=== PATIENT | male | born 1940 | race Caucasian/White ===

== ENCOUNTER 2016-10-14 16:05 | Emergency (ER) | payer MEDICARE, MEDICAID ==
[~2016-10-14] VITALS: Ht 172.7 cm; Wt 81.6 kg
[~2016-10-14 16:05] MED LIST: AMBIEN10 M1 GT; ATARAX25 MG ORAL; BENAZEPRIL HCL10 MG PO; CATAPRES0.1 MG ORAL; CIPRO500 MG PO; COREG3.125 MG PO; DEPAKENE250 MG ORAL; DEPAKOTE500 MG PO; FUROSEMIDE40 MG ORAL; GLUCOPHAGE500 MG PO; LANOXIN125 MCG PO; LANTUS SOL100 UNIT/1 SUBQ; LANTUS5 UNITS SUBQ; LASIX40 MG PO; METFORMIN HCL500 M1 GT; MILK OF MA400 MG/51 ORAL; MULTIVITAMINS1 EAC8 GT; MYLANTA30 M1 GT; NORVASC5 MG GT; NOVOLIN R100 UNIT/1 SUBQ; NOVOLOG100 UNIT/3 SUBQ; OMEPRAZOLE20 M2 GT; POLYVINYL ALCOH15 ML BOTH EYES; POTASSIUM30 MEQ/22. GT; RISPERDAL2 MG GT; RISPERDAL2 MG PO; SIMVASTATIN20 MG PO; TYLENOL650 MG/20. ORAL
[2016-10-14] MEDS ORDERED: AMIODARONE HCL400 M1 GT (16:29)
[2016-10-14] MEDS ORDERED: CARDURA1 MG GT (16:30)
[2016-10-14] MEDS ORDERED: ELIQUIS2.5 MG GT (16:31)
[2016-10-14] MEDS ORDERED: GLUCOPHAGE500 MG GT (16:32)
[2016-10-14] MEDS ORDERED: METOPROLOL TART25 MG GT (16:33)
[2016-10-14] MEDS ORDERED: NEXIUM40 M2 GT (16:34)
[2016-10-14] MEDS ORDERED: PROSCAR5 MG GT (16:35)
[2016-10-14] MEDS ORDERED: BUPROPION XL300 MG GT (16:36)
[2016-10-14 19:59] LABS: EOSINOPHILS % (AUTO) 3.3 % (0.0-3.0); LYMPHOCYTES % (AUTO) 14.9 % (20.0-45.0); MEAN CORPUSCULAR HEMOGLOBIN 32.7 PG (27.0-31.0); MEAN CORPUSCULAR HGB CONC 31.8 G/DL (32.0-36.0); MEAN CORPUSCULAR VOLUME 103 FL (80-99); MEAN PLATELET VOLUME 8.5 FL (6.5-10.1); MONOCYTES % (AUTO) 8.8 % (1.0-10.0); NEUTROPHILS % (AUTO) 72.1 % (45.0-75.0); PLATELET COUNT 192 K/UL (150-450); RED BLOOD COUNT 4.12 M/UL (4.70-6.10); RED CELL DISTRIBUTION WIDTH 13.7 % (11.6-14.8); WHITE BLOOD COUNT 5.8 K/UL (4.8-10.8)
[2016-10-14 20:18] LABS: ALANINE AMINOTRANSFERASE 8 U/L (3-41); ANION GAP 8 (5-15); ASPARTATE AMINO TRANSFERASE 16 U/L (5-40); CALCIUM 9.5 mg/dL (8.6-10.2); CARBON DIOXIDE 31 mEQ/L (20-30); CHLORIDE 98 mEQ/L (98-107); CREATININE 0.7 mg/dL (0.7-1.2); HEMOLYSIS 1; POTASSIUM 4.4 mEQ/L (3.4-4.9); SODIUM 137 mEQ/L (135-145); TOTAL PROTEIN 6.9 g/dL (6.6-8.7)
[2016-10-14 21:12] VITALS: BP 168/96
[2016-10-14 22:22] VITALS: BP 146/69
--- NOTE | 2016-10-15 09:04 | Diagnostic Imaging Report ---
Indication: Status post gastrostomy replacement Technique: Supine view of the abdomen after injection of water-soluble contrast into gastrostomy Comparison: 07/20/2016 Findings: Contrast opacifies the stomach. No contrast extravasation is demonstrated. The bowel gas pattern is unremarkable. Pacemaker wires are again seen in the heart. There is no significant change Impression: Satisfactory position of gastrostomy tube
--- NOTE | 2016-10-17 06:41 | Emergency Room Report ---
History of Present Illness General Chief Complaint: Malfunctioning Gastric Tube Source: Patient, Medical Record Present Illness HPI Patient is a 76-year-old male who presented after the gastrostomy tube clogged. The patient had recently been fed through G-tube prior to the G-tube malfunctioning. The patient reports having no fever. Patient G-tube dependent. He denies current complaints.There is no recent leakage from the G- tube. The patient had not been vomiting. Allergies: Coded Allergies: AUBREY INHIBITORS (Verified Allergy, Unknown, ANGIOEDEMA, 09/17/12) Patient History Past Medical History: see triage record Reviewed Nursing Documentation: PMH: Agreed, PSxH: Agreed Nursing Documentation-PMH Past Medical History: No History, Except For Hx Cardiac Problems: Yes - HYPERLIPIDEMIA Hx Hypertension: Yes Hx Asthma: Yes Hx COPD: Yes Hx Diabetes: Yes Hx Cancer: Yes - LYMPH Hx Gastrointestinal Problems: Yes - PT HAS GT-INTACT Hx Neurological Problems: Yes Hx Cerebrovascular Accident: Yes Hx Aphasia: Yes Hx Weakness: Yes - LE Review of Systems All Other Systems: limited - by poor historian Physical Exam Vital Signs Date Time Temp Pulse Resp B/P Pulse Ox O2 Delivery O2 Flow Rate FiO2 10/14/16 16:02 98.4 60 14 152/88 98 Room Air Sp02 EP Interpretation: reviewed, normal General Appearance: normal inspection, well appearing, no apparent distress, alert, GCS 15 Head: atraumatic ENT: normal ENT inspection, hearing grossly normal, normal voice, other - abnormal facies Neck: normal inspection, full range of motion, supple, no bony tend Respiratory: normal inspection, lungs clear, normal breath sounds, no respiratory distress, no retraction, no wheezing Cardiovascular #1: regular rate, rhythm, no edema Gastrointestinal: normal inspection, normal bowel sounds, non tender, soft, no guarding, no hernia, other - stoma clean dry and intact without erythema Genitourinary: no CVA tenderness Musculoskeletal: normal inspection, back normal, normal range of motion Neurologic: alert, responsive, speech normal, other - slight speech impediment , oriented Psychiatric: normal inspection, judgement/insight normal, mood/affect normal Skin: normal inspection, normal color, no rash Medical Decision Making Diagnostic Impression: Primary Impression: Malfunction of gastrostomy tube ER Course The patient presented for G-tube malfunction. Gastrostomy tube was removed with light traction. Gastrostomy tube was replaced with sterile technique after prep with Betadine. 18 [place] gastrostomy tube was introduced into the stoma. Post procedure x-ray showed adequate gastrostomy tube placement. Patient tolerated well without complications. The patient was discharged back to longterm. Patient was return for persistent vomiting, other concerns. Labs Test 10/14/16 19:45 White Blood Count 5.8 K/UL (4.8-10.8) Red Blood Count 4.12 M/UL (4.70-6.10) Hemoglobin 13.5 G/DL (14.2-18.0) Hematocrit 42.4 % (42.0-52.0) Mean Corpuscular Volume 103 FL (80-99) Mean Corpuscular Hemoglobin 32.7 PG (27.0-31.0) Mean Corpuscular Hemoglobin Concent 31.8 G/DL (32.0-36.0) Red Cell Distribution Width 13.7 % (11.6-14.8) Platelet Count 192 K/UL (150-450) Mean Platelet Volume 8.5 FL (6.5-10.1) Neutrophils (%) (Auto) 72.1 % (45.0-75.0) Lymphocytes (%) (Auto) 14.9 % (20.0-45.0) Monocytes (%) (Auto) 8.8 % (1.0-10.0) Eosinophils (%) (Auto) 3.3 % (0.0-3.0) Basophils (%) (Auto) 1.0 % (0.0-2.0) Sodium Level 137 mEQ/L (135-145) Potassium Level 4.4 mEQ/L (3.4-4.9) Chloride Level 98 mEQ/L (98-107) Carbon Dioxide Level 31 mEQ/L (20-30) Anion Gap 8 (5-15) Blood Urea Nitrogen 20 mg/dL (7-23) Creatinine 0.7 mg/dL (0.7-1.2) Estimat Glomerular Filtration Rate mL/min (>60) Glucose Level 70 mg/dL (74-106) Calcium Level 9.5 mg/dL (8.6-10.2) Total Bilirubin 0.5 mg/dL (0.0-1.2) Aspartate Amino Transf (AST/SGOT) 16 U/L (5-40) Alanine Aminotransferase (ALT/SGPT) 8 U/L (3-41) Alkaline Phosphatase 73 U/L (40-129) Total Protein 6.9 g/dL (6.6-8.7) Albumin 3.5 g/dL (3.5-5.2) Globulin 3.4 g/dL Albumin/Globulin Ratio 1.0 (1.0-2.7) Last Vital Signs Date Time Temp Pulse Resp B/P Pulse Ox O2 Delivery O2 Flow Rate FiO2 10/14/16 22:22 87 14 146/69 97 Room Air 10/14/16 21:12 98.3 Status: improved Disposition: XFER SNF Condition: Stable Referrals: Laina Pereira MD (PCP) Patient Instructions: Gastrostomy Tube Home Guide, Adult Mahin Ulrich Oct 17, 2016 06:41
[2016-11-10] MEDS ORDERED: ELIQUIS2.5 MG GT (14:21)
[2016-11-10] MEDS ORDERED: FUROSEMIDE20 M1 GT (14:21)
[2016-11-10] MEDS ORDERED: AMLODIPINE BESYL5 MG GT (14:21)
[2016-11-10] MEDS ORDERED: CARDURA4 MG GT (14:21)
[2016-11-10] MEDS ORDERED: CRANBERRY200 M1 GT (14:21)
[2016-11-10] MEDS ORDERED: PACERONE100 MG GT (14:21)
[2016-11-10] MEDS ORDERED: CATAPRES0.1 MG GT (14:21)
[2016-11-10] MEDS ORDERED: GLUCOPHAGE500 MG GT (14:23)
[2016-11-10] MEDS ORDERED: METOPROLOL TART25 MG GT (14:23)
[2016-11-10] MEDS ORDERED: MILK OF MA400 MG/51 ORAL (14:23)
[2016-11-10] MEDS ORDERED: MULTIVITAMINS1 EAC8 GT (14:29)
[2016-11-10] MEDS ORDERED: PROSCAR5 MG GT (14:29)
[2016-11-10] MEDS ORDERED: POTASSIUM CHLO10 ME2 GT (14:29)
[2016-11-10] MEDS ORDERED: VALPROIC A250 MG/51 GT (14:29)
[2016-11-10] MEDS ORDERED: tylenol GT (14:29)
[2016-11-10] MEDS ORDERED: WELLBUTRIN XL150 MG GT (14:29)
[2016-11-10] MEDS ORDERED: NEXIUM40 MG ORAL (14:29)
== END 2016-10-14 22:25 ==
LOC: EDBD 16:05 → EMR 17:22
DX: K94.23 Gastrostomy malfunction (principal); I10 Essential (primary) hypertension; E78.5 Hyperlipidemia, unspecified; J45.909 Unspecified asthma, uncomplicated; Z86.73 Personal history of transient ischemic attack (TIA), and cerebral infarction without residual deficits; R47.01 Aphasia; J44.9 Chronic obstructive pulmonary disease, unspecified; E11.9 Type 2 diabetes mellitus without complications; Z87.19 Personal history of other diseases of the digestive system; R53.1 Weakness; Z88.8 Allergy status to other drugs, medicaments and biological substances; Z85.9 Personal history of malignant neoplasm, unspecified
CPT/HCPCS: 36415; 43760; 74000; 80053; 85025; 86710

== ENCOUNTER 2016-11-10 14:32 | Inpatient (IN) | payer MEDICARE, MEDICAID ==
[~2016-11-10] VITALS: Ht 175.3 cm; Wt 77.1 kg
--- NOTE | 2016-11-10 14:25 | Emergency Room Report ---
History of Present Illness General Chief Complaint: General Complaint Source: Medical Record, PMD Present Illness HPI 75 YOM sent from convalescent home by Dr Granados for evaluation for ?left sided facial swelling/cellulitis and possible throat cancer vs thyroid cancer. Patient speaking with scratchy voice that is barely discernible to me and RN. All info below from review of paperwork patient sent with. Allergies: Coded Allergies: AUBREY INHIBITORS (Verified Allergy, Unknown, ANGIOEDEMA, 09/17/12) Patient History Past Medical History: DM, HTN, CHF, AFib, dementia, psych hx Past Surgical History: pacemaker, other - s/p trach distantly Pertinent Family History: unable to obtain Social History: Denies: alcohol use, drug use, smoking Immunizations: UTD Reviewed Nursing Documentation: PMH: Agreed, PSxH: Agreed Nursing Documentation-PMH Hx Cardiac Problems: Yes Hx Hypertension: Yes Hx Pacemaker: Yes Hx Asthma: Yes Hx COPD: No Hx Diabetes: No Hx Cancer: No Hx Gastrointestinal Problems: Yes - ge-reflux, gt Hx Dialysis: No History Of Psychiatric Problem: No Hx Neurological Problems: No Hx Cerebrovascular Accident: No Hx Seizures: No Review of Systems All Other Systems: limited - unable to obtain, chronic illness Physical Exam Vital Signs Date Time Temp Pulse Resp B/P Pulse Ox O2 Delivery O2 Flow Rate FiO2 11/10/16 13:52 98.4 64 18 96/63 94 Room Air Sp02 EP Interpretation: reviewed, normal General Appearance: normal inspection, well appearing, no apparent distress, alert, GCS 15, non-toxic Head: normocephalic, atraumatic Eyes: bilateral eye EOMI, bilateral eye PERRL ENT: normal ENT inspection, hearing grossly normal, normal pharynx, no angioedema, normal voice Neck: normal inspection, full range of motion, supple, no bony tend, other - previous trach scar Respiratory: normal inspection, lungs clear, normal breath sounds, no rhonchi, no respiratory distress, no retraction, no accessory muscle use, no wheezing Cardiovascular #1: regular rate, rhythm, no edema Gastrointestinal: normal inspection, normal bowel sounds, non tender, soft, no guarding, no hernia Genitourinary: no CVA tenderness Musculoskeletal: normal inspection, back normal, normal range of motion, April' s Sign negative Neurologic: normal inspection, alert, responsive, kilnman III-XII nml as tested, motor strength/tone normal, speech normal Psychiatric: normal inspection, judgement/insight normal, mood/affect normal Skin: other - Left sided facial erythema, no fluctuance Medical Decision Making Medicare Attestation I Ahmet Christie MD hereby attest that the medical record entry for date of service, 09/15/16 accurately reflects signatures/notations that I made in my capacity as MD when I treated/diagnosed the above listed Medicare beneficiary. I attest that this information is true, accurate and complete to the best of my knowledge. I understand that any falsification, omission, or concealment of material fact may subject me to administrative, civil, or criminal liability. This patient warrants hospital admission for extreme of age and has a condition that cannot be treated as outpatient. Diagnostic Impression: Primary Impression: Cellulitis and abscess of face Additional Impression: Swelling of left side of face ER Course Labs: H&H stable. No leuks. No metabolic abnormalities. CXR with possible left sided infiltrate A: Patient tx empirically with vanc/zosyn for left sided facial cellulitis and possible left sided PNA CT Head and CT neck are pending at time of endorsement to Dr Granados at 355pm for tele admission Patient remains stable in ED. VSS. No airway compromise. EKG Diagnostic Results Rate: normal, other - PVCs Rhythm: NSR ST Segments: no acute changes ASA given to the pt in ED: No Rhythm Strip Diag. Results EP Interpretation: yes Rate: 68 Rhythm: NSR, no ectopy, other - Multiple PVCs Chest X-Ray Diagnostic Results EP Interpretation: Yes Findings: no consolidation, no effusion, no pneumothorax, no acute cardiopulmonary disease, other - Possible left sided infiltate vs nodules new compared to previous Number of Views: 1 Last Vital Signs Date Time Temp Pulse Resp B/P Pulse Ox O2 Delivery O2 Flow Rate FiO2 11/10/16 13:52 98.4 64 18 96/63 94 Room Air Status: improved Disposition: ADMITTED INPATIENT Condition: Serious AHMET CHRISTIE M.D. Nov 10, 2016 14:25
[~2016-11-10 14:32] MED LIST changes: +AMIODARONE HCL400 M1 GT; +AMLODIPINE BESYL5 MG GT; +BUPROPION XL300 MG GT; +CARDURA1 MG GT; +CARDURA4 MG GT; +CATAPRES0.1 MG GT; +CRANBERRY200 M1 GT; +ELIQUIS2.5 MG GT; +FUROSEMIDE20 M1 GT; +GLUCOPHAGE500 MG GT; +METOPROLOL TART25 MG GT; +NEXIUM40 M2 GT; +NEXIUM40 MG ORAL; +PACERONE100 MG GT; +POTASSIUM CHLO10 ME2 GT; +PROSCAR5 MG GT; +VALPROIC A250 MG/51 GT; +Vancomycin 1.5gm/D5W 300ml 325 ML IVPB ONE; +WELLBUTRIN XL150 MG GT; +tylenol GT
[2016-11-10 14:35] VITALS: BP 104/58
[2016-11-10] MEDS ORDERED: Zosyn 4.5gm inj ONE (14:49)
[2016-11-10] MEDS ORDERED: Tubing IV Cassette IV ONE (14:50)
[2016-11-10] MEDS ORDERED: NS 110 ML ONE (14:50)
[2016-11-10 15:05] LABS: BASOPHILS % (AUTO) 0.6 % (0.0-2.0); EOSINOPHILS % (AUTO) 0.9 % (0.0-3.0); LYMPHOCYTES % (AUTO) 8.1 % (20.0-45.0); MEAN CORPUSCULAR HEMOGLOBIN 32.8 PG (27.0-31.0); MEAN CORPUSCULAR HGB CONC 32.3 G/DL (32.0-36.0); MEAN CORPUSCULAR VOLUME 102 FL (80-99); MEAN PLATELET VOLUME 9.2 FL (6.5-10.1); MONOCYTES % (AUTO) 10.1 % (1.0-10.0); NEUTROPHILS % (AUTO) 80.5 % (45.0-75.0); PLATELET COUNT 198 K/UL (150-450); RED BLOOD COUNT 3.93 M/UL (4.70-6.10); RED CELL DISTRIBUTION WIDTH 13.6 % (11.6-14.8); WHITE BLOOD COUNT 7.6 K/UL (4.8-10.8)
[2016-11-10] MEDS ORDERED: Piperacillin/Tazobactam 4.5 GM in D5W 110 ML IV SCH (15:30)
[2016-11-10 15:36] LABS: ALANINE AMINOTRANSFERASE 10 U/L (3-41); ALBUMIN/GLOBULIN RATIO 0.8 (1.0-2.7); ANION GAP 12 (5-15); ASPARTATE AMINO TRANSFERASE 16 U/L (5-40); CALCIUM 9.7 mg/dL (8.6-10.2); CARBON DIOXIDE 31 mEQ/L (20-30); CHLORIDE 95 mEQ/L (98-107); CREATININE 0.7 mg/dL (0.7-1.2); HEMOLYSIS 6; POTASSIUM 4.6 mEQ/L (3.4-4.9); SODIUM 138 mEQ/L (135-145); TOTAL PROTEIN 7.6 g/dL (6.6-8.7)
[2016-11-10 15:50] LABS: APPEARANCE,URINE CLEAR; KETONES,URINE NEGATIVE (NEGATIVE); LEUKOCYTE ESTERASE ,URINE NEGATIVE (NEGATIVE); NITRITE,URINE NEGATIVE (NEGATIVE); PH,URINE 7 (4.5-8.0); PROTEIN,URINE NEGATIVE (NEGATIVE); UROBILINOGEN,URINE 1 MG/DL (0.0-1.0)
--- NOTE | 2016-11-10 17:04 | Infectious Diseases Prog Note ---
Assessment/Plan Problems: (1) Cellulitis and abscess of face Assessment & Plan: will start zosyn and vancomycin empirically for now pending CT scan results, will send blood culture (2) Cellulitis Assessment & Plan: of the neck , CT scan is pending to rule out deep abscess, will start zosyn and vancomycin , await culture results (3) Sepsis Assessment & Plan: due to the above, send blood culture, start wide spectrum antibiotics (4) Diabetes Assessment & Plan: recommend tight glycemic control to keep blood glucose between 80-120 (5) HTN (hypertension) Assessment & Plan: continue meds to keep SBP <140 Subjective Allergies: Coded Allergies: AUBREY INHIBITORS (Verified Allergy, Unknown, ANGIOEDEMA, 09/17/12) Objective Vital Signs Last 24 Hour Vital Signs Date Time Temp Pulse Resp B/P Pulse Ox O2 Delivery O2 Flow Rate FiO2 11/10/16 14:35 98.8 66 16 104/58 95 Room Air 11/10/16 13:52 98.4 64 18 96/63 94 Room Air Height (Feet): 5 Height (Inches): 9.00 Weight (Pounds): 170 Laboratory Tests Test 11/10/16 14:15 11/10/16 15:30 White Blood Count 7.6 K/UL (4.8-10.8) Red Blood Count 3.93 M/UL (4.70-6.10) L Hemoglobin 12.9 G/DL (14.2-18.0) L Hematocrit 39.9 % (42.0-52.0) L Mean Corpuscular Volume 102 FL (80-99) H Mean Corpuscular Hemoglobin 32.8 PG (27.0-31.0) H Mean Corpuscular Hemoglobin Concent 32.3 G/DL (32.0-36.0) Red Cell Distribution Width 13.6 % (11.6-14.8) Platelet Count 198 K/UL (150-450) Mean Platelet Volume 9.2 FL (6.5-10.1) Neutrophils (%) (Auto) 80.5 % (45.0-75.0) H Lymphocytes (%) (Auto) 8.1 % (20.0-45.0) L Monocytes (%) (Auto) 10.1 % (1.0-10.0) H Eosinophils (%) (Auto) 0.9 % (0.0-3.0) Basophils (%) (Auto) 0.6 % (0.0-2.0) Sodium Level 138 mEQ/L (135-145) Potassium Level 4.6 mEQ/L (3.4-4.9) Chloride Level 95 mEQ/L (98-107) L Carbon Dioxide Level 31 mEQ/L (20-30) H Anion Gap 12 (5-15) Blood Urea Nitrogen 23 mg/dL (7-23) Creatinine 0.7 mg/dL (0.7-1.2) Estimat Glomerular Filtration Rate mL/min (>60) Glucose Level 95 mg/dL (74-106) Calcium Level 9.7 mg/dL (8.6-10.2) Total Bilirubin 0.6 mg/dL (0.0-1.2) Aspartate Amino Transf (AST/SGOT) 16 U/L (5-40) Alanine Aminotransferase (ALT/SGPT) 10 U/L (3-41) Alkaline Phosphatase 91 U/L (40-129) Total Protein 7.6 g/dL (6.6-8.7) Albumin 3.5 g/dL (3.5-5.2) Globulin 4.1 g/dL Albumin/Globulin Ratio 0.8 (1.0-2.7) L Urine Color Yellow Urine Appearance Clear Urine pH 7 (4.5-8.0) Urine Specific Bryan 1.010 (1.005-1.035) Urine Protein Negative (NEGATIVE) Urine Glucose (UA) Negative (NEGATIVE) Urine Ketones Negative (NEGATIVE) Urine Occult Blood Negative (NEGATIVE) Urine Nitrite Negative (NEGATIVE) Urine Bilirubin Negative (NEGATIVE) Urine Urobilinogen 1 MG/DL (0.0-1.0) H Urine Leukocyte Esterase Negative (NEGATIVE) Current Medications Medications (Trade) Dose Ordered Sig/Yousuf Route PRN Reason Start Time Stop Time Status Last Admin Dose Admin Piperacillin Sod/ Tazobactam Sod 3.375 gm/Sodium Chloride 110 ml @ 220 mls/hr Q8HR IVPB 11/10/16 22:00 11/17/16 21:59 UNV Piperacillin Sod/ Tazobactam Sod 4.5 gm/Dextrose 110 ml @ 220 mls/hr Q8H IV 11/10/16 15:30 11/17/16 15:29 11/10/16 15:58 Vancomycin HCl/ Dextrose (Vancomycin/D5W) 275 ml @ 183.708 mls/hr Q12HR IVPB 11/10/16 21:00 11/15/16 20:59 Aida Rojas M.D. Nov 10, 2016 17:04
[2016-11-10] MEDS ORDERED: Zolpidem 5mg tab ORAL PRN (19:15)
[2016-11-10] MEDS ORDERED: Miralax 17gm pkt GT PRN (19:15)
[2016-11-10] MEDS ORDERED: Mylanta II UD 30ml ORAL PRN (19:15)
[2016-11-10] MEDS ORDERED: LORazepam Inj 2mg/ml 1ml IV PRN (19:15)
[2016-11-10] MEDS ORDERED: Morphine Sulfate 2mg/ml Inj IVP PRN (19:30)
[2016-11-10 20:00] VITALS: BP 114/63
[2016-11-10] MEDS ORDERED: Heparin 5000 units/ml inj SUBQ SCH (21:00)
[2016-11-10] MEDS: Doxazosin 1mg Tab GT SCH (21:51)
[2016-11-10] MEDS: Piperacillin/Tazobactam 3.375 GM in D5W 110 ML IVPB SCH (21:52)
[2016-11-10] MEDS: Metoprolol Tartrate 12.5mg TAB GT SCH (21:52)
[2016-11-10] MEDS: NovoLOG Insulin Flexpen SUBQ SCH (21:54)
[2016-11-10] MEDS ORDERED: Piperacillin/Tazobactam 4.5 GM in NS 110 ML IV SCH (22:00)
--- NOTE | 2016-11-10 22:27 | Consultation ---
DATE OF CONSULTATION: 11/10/2016 INFECTIOUS DISEASE CONSULTATION CONSULTING PHYSICIAN: Aida Frederick M.D. REFERRING PHYSICIAN: Laina Pereira M.D. REASON FOR CONSULTATION: Left facial and neck cellulitis. Recommendation for antibiotics therapy HISTORY OF PRESENT ILLNESS: The patient is a 76-year-old male, who lives at convalescent home was sent to the emergency room at [facility] for worsening left-sided facial swelling and neck with redness. The patient had a history of throat cancer in the past as per the record status post surgical removal complicated with dysphagia. The patient was found to have left-sided lung infiltration in the emergency room. A head CT scan and neck CT scan so far pending at this point. The patient was started on wide-spectrum antibiotics therapy with vancomycin and Zosyn and I was consulted by the primary provider for antibiotic choice and further management. As of note, the patient had scratchy voice cannot be understood. History was mainly obtained from the medical record and the nursing staff. PAST MEDICAL HISTORY: Significant for diabetes, hypertension, congestive heart failure, atrial fibrillation, dementia and psych disorder. PAST SURGICAL HISTORY: He had a pacemaker placement, throat cancer status post resection and history of tracheostomy. ALLERGIES: He is allergic to AUBREY inhibitors. MEDICATIONS: The patient received Zosyn and vancomycin in the emergency room. For the rest of the medications please refer to MAR. FAMILY HISTORY: Unable to obtain. SOCIAL HISTORY: The patient lives at convalescent home. No recent drugs, tobacco, or alcohol. REVIEW OF SYSTEMS: Unable to obtain at this point. PHYSICAL EXAMINATION: VITAL SIGNS: Temperature 98.8 degrees, pulse 66, respirations 16, blood pressure 104/58, and saturation 95% on room air. GENERAL: This is an elderly male with fascial and neck deformity. He had significant swelling on the left side of his face and neck, up in bed, not in distress. HEENT: Showed significant left facial swelling around the periorbital area too. No fluctuation. Pupils are reactive to light equally. Moist oral mucosa. No exudate. NECK: He had old scars and left side swelling with redness due to cellulitis. CARDIOVASCULAR: Regular rate and rhythm. No murmur. No gallop. LUNGS: He had diminished breathing sound on the left side with crackles. No wheezing. No rhonchi. ABDOMEN: Soft, nontender, and nondistended. Positive bowel sounds. No hepatosplenomegaly. No ascites. EXTREMITIES: No edema. No cyanosis. LABORATORY DATA: Labs showed white count of 7.6, hemoglobin of 12.9, hematocrit of 39.9, and platelet count of 198,000. BUN of 23 and creatinine of 0.7. AST of 16 and ALT of 10. Urine analysis was negative for infection. MICROBIOLOGY: Pending. IMAGING STUDIES: The patient had a chest x-ray showed possible left side infiltrate. CT scan of the head and neck are both pending. ASSESSMENT AND PLAN: 1. Left facial cellulitis with swelling and edema. The patient will be started on Zosyn and vancomycin empiric treatment for now. Pending CT scan results of the neck and face. Recommend ear, nose, and throat consultation for possible surgical debridement if needed. Watch out for possible neck abscess formation. consult ENT 2. Cellulitis of the left side of the neck. CT scan is pending to rule out deep abscess. Continue Zosyn and vancomycin. Consult ear, nose, and throat. Await culture results. 3. Sepsis due to the above. Continue wide-spectrum antibiotics therapy. Monitor culture. 4. Diabetes. Recommend tight glycemic control to keep blood glucose between 80 to 120. 5. Hypertension. Continue medications to keep systolic blood pressure less than 140. Aida Frederick M.D. DR: ADENIKE JOB#: [id number] CC: SANDEEP
[2016-11-11] VITALS (7 sets, daily range): BP systolic 89–138; BP diastolic 60–87
--- NOTE | 2016-11-11 02:18 | Consultation ---
DATE OF CONSULTATION: 11/10/2016 HEMATOLOGY/ONCOLOGY CONSULTATION CONSULTING PHYSICIAN: Jax Alcaraz M.D. REQUESTING PHYSICIAN: Laina Pereira M.D. REASON FOR CONSULTATION: Evaluation of potential head and neck cancer. IDENTIFICATION DATA: Dear Dr. Laina Pereira, The patient is a pleasant 76-year-old male, who has been admitted multiple times in the past to [facility] [place] and at this time, with a past medical history significant for atrial fibrillation, dementia, psychiatric history, hypertension, and diabetes mellitus, presents for evaluation of left-sided facial swelling with cellulitis and for evaluation of potential throat cancer. He has had a scratchy throat, difficult to discern what the patient is saying. Most of the history is provided from the old chart and medical record. The patient was noted to have anemia upon admission. PAST MEDICAL HISTORY: CHF, atrial fibrillation, dementia, psychiatric history, hypertension, and diabetes mellitus. PAST SURGICAL HISTORY: Pacemaker placement and status post tracheostomy. ALLERGIES: AUBREY inhibitors. IMMUNIZATIONS: Up-to-date. SOCIAL HISTORY: No alcohol, tobacco, or illicit drug use. FAMILY HISTORY: Noncontributory. REVIEW OF SYSTEMS: Constitutional: No fever, chills, or night sweats. Skin: No rashes, lumps, or itching. HEENT: No headache or hearing or vision changes. Breasts: No lumps, pain, or discharge. Pulmonary: No cough, sputum, or shortness of breath. Cardiovascular: No chest pain, tightness, or palpitations. Gastrointestinal: No nausea, vomiting, or diarrhea. Genitourinary: No dysuria, frequency, or urgency. Musculoskeletal: No joint swelling, muscle pain, or trauma. Neurologic: No dizziness, fainting, or seizures. PHYSICAL EXAMINATION: GENERAL: In no acute distress. VITAL SIGNS: Blood pressure 96/53, respiratory rate 18, pulse of 64, temperature 98.4 degrees Fahrenheit, and pulse oximetry 94% on room air. HEENT: Left-sided facial erythema and infection. . PULMONARY: Decreased breath sounds. CARDIOVASCULAR: Regular rate. No S3 or S4. ABDOMEN: Soft, nontender, and nondistended. EXTREMITIES: A 1+ edema. NEUROLOGIC: Alert and responsive. LABORATORY DATA: WBC 7.6, hemoglobin 12.9, hematocrit 40, and platelet count 188,000. BUN of 22 and creatinine 0.5. IMAGING DATA: Reviewed. ASSESSMENT: 1. Left-sided facial erythema, concerning for head and neck cancer. Continue antibiotics at this time and repeat the CAT scan of the head and neck areas with contrast. 2. Anemia secondary to chronic disease. 3. Possible left-sided infiltrate noted on chest x-ray. 4. Diabetes mellitus. 5. Atrial fibrillation. 6. Cellulitis of the face. 7. Diabetes mellitus. 8. Hypertension. 9. Psychiatric history. RECOMMENDATIONS: 1. Monitor counts. 2. Transfuse if hemoglobin less than 7.5. 3. CAT scan of the face and neck is pending. 4. Obtain biopsy if any discernible mass is noted on CAT scan. 5. TSH has been ordered. 6. Followup on ID and Pulmonary borjas. 7. Tight glycemic control. 8. DVT prophylaxis with heparin. 9. GI prophylaxis as needed. 10. Pain control. 11. Antibiotics as needed. 12. Discussed with staff. Thank you, Dr. Laina Pereira, for this kind referral. Please do not hesitate to contact me with any further questions. Jax Alcaraz M.D. DR: ROMAN JOB#: [id number] CC:
[2016-11-11] MEDS: Piperacillin/Tazobactam 3.375 GM in D5W 110 ML IVPB SCH ×3 (05:48→22:33)
[2016-11-11] MEDS: NovoLOG Insulin Flexpen SUBQ SCH ×4 (06:01→20:55)
[2016-11-11 08:04] LABS: BASOPHILS % (AUTO) 0.6 % (0.0-2.0); EOSINOPHILS % (AUTO) 1.8 % (0.0-3.0); LYMPHOCYTES % (AUTO) 10.5 % (20.0-45.0); MEAN CORPUSCULAR HGB CONC 33.8 G/DL (32.0-36.0); MEAN CORPUSCULAR VOLUME 100 FL (80-99); MEAN PLATELET VOLUME 9.3 FL (6.5-10.1); MONOCYTES % (AUTO) 10.7 % (1.0-10.0); NEUTROPHILS % (AUTO) 76.4 % (45.0-75.0); PLATELET COUNT 199 K/UL (150-450); RED BLOOD COUNT 3.72 M/UL (4.70-6.10); RED CELL DISTRIBUTION WIDTH 13.1 % (11.6-14.8); WHITE BLOOD COUNT 6.2 K/UL (4.8-10.8)
[2016-11-11 08:24] LABS: ALANINE AMINOTRANSFERASE 9 U/L (3-41); ALBUMIN/GLOBULIN RATIO 0.7 (1.0-2.7); ANION GAP 12 (5-15); ASPARTATE AMINO TRANSFERASE 14 U/L (5-40); CALCIUM 9.4 mg/dL (8.6-10.2); CARBON DIOXIDE 31 mEQ/L (20-30); CHLORIDE 95 mEQ/L (98-107); CREATININE 0.6 mg/dL (0.7-1.2); HEMOLYSIS 0; SODIUM 138 mEQ/L (135-145); TOTAL PROTEIN 6.8 g/dL (6.6-8.7)
--- NOTE | 2016-11-11 08:37 | Consultation ---
DATE OF CONSULTATION: 11/11/2016 ENDOCRINOLOGY CONSULTATION: CONSULTING PHYSICIAN: Mickey Chairez M.D. REFERRING PHYSICIAN: Laina Pereira M.D. REASON FOR CONSULTATION: Evaluation for possible thyroid cancer. HISTORY OF PRESENT ILLNESS: It is important to note that the history is obtained from the review of the chart and medical records since the patient has difficulty conversing. The patient is a 76-year-old male with the past medical history of atrial fibrillation, dementia, psychiatric history, hypertension, and diabetes who presents for the evaluation of left-sided facial swelling and cellulitis. The patient already concerned about the patient having a thyroid cancer. Endocrinology was consulted. Also the patient is diabetic. PAST MEDICAL HISTORY: 1. Congestive heart failure. 2. Atrial fibrillation. 3. Dementia. 4. Psychiatric. 5. Hypertension. 6. Diabetes. PAST SURGICAL HISTORY: 1. Pacemaker placement. 2. Tracheostomy placement. 3. Peg placement. ALLERGIES: AUBREY inhibitors. SOCIAL HISTORY: No smoking, alcohol, or drug use. FAMILY HISTORY: Noncontributory. REVIEW OF SYSTEMS: As per HPI. PHYSICAL EXAMINATION: GENERAL: Not in apparent distress. VITAL SIGNS: Blood pressure is 100/60, pulse of 64, temperature of 98.4, and respiratory rate of 18. HEENT: Facial edema. Thyroid is difficult to exam. HEART: Regular rate and rhythm. LUNGS: Decreased breath sounds. ABDOMEN: Positive bowel sounds. EXTREMITIES: 1+ lower extremity edema. LABORATORY DATA: WBC 7.6, hemoglobin 12.9, hematocrit 39.9, and platelets of 198,000. Sodium 138, potassium 4.6, chloride 95, bicarb 31, BUN 23, creatinine 0.7, and glucose of 94. Medications reviewed and reconciled. DIAGNOSES: 1. Left facial erythema concerned for head and neck cancer and thyroid cancer. 2. Anemia. 3. Diabetes. 4. Atrial fibrillation. 5. Cellulitis. PLAN: 1. Obtain thyroid ultrasound to evaluate the neck and the soft tissue. 2. Sliding scale insulin has been ordered. I will follow up the patient during the hospital stay for endocrine issue. Thank you, Dr. Pereira, for the courtesy of this consultation. Mickey Chairez M.D. DR: CHICHI JOB#: [id number] CC: SANDEEP
--- NOTE | 2016-11-11 08:39 | Diagnostic Imaging Report ---
Indication: PAIN Technique: IV administration nonionic contrast. Spiral acquisitions obtained through the neck. Multiplanar reconstructions were generated. Total dose length product 2000 786 mGycm. CTDIvol(s) 70 mGy. Bodies are inclusive of postcontrast head CT performed at same time. Radiation dose was minimized using automated exposure control Comparison: 09/10/2012 Findings: There is edema of the subcutaneous fat of the left side of the face. No fluid collections are demonstrated. The nasopharynx, oropharynx, hypopharynx, larynx are unremarkable. There is again demonstrated a right lower pole thyroid mass which measures 19 mm in length by 14 mm transverse, only minimally increased in size since the prior study of 4 years ago. No other evidence of cervical mass or adenopathy demonstrated. Again demonstrated is left maxillary sinus opacification. Previously demonstrated right maxillary sinus opacification is not evident. There is bilateral mastoid opacification There are degenerative spondylosis changes. The included lung apices are clear. There are vascular calcifications at the carotid bifurcations but no significant vascular stenosis. The upper esophagus demonstrates equivocal minimal wall thickening. There is slight kinking of the trachea. Impression: There is mild left facial swelling. Nonspecific, represent edema or cellulitis changes. Correlate with clinical findings Right lower pole thyroid nodule, minimally increased in size since prior study of 09/10/2012 No other cervical or upper airway mass or adenopathy Left maxillary sinus disease Mastoid disease equivocal slight esophageal wall thickening, esophagitis excludable. Correlate with clinical findings Degenerative spondylosis incidentally noted This agrees with the preliminary interpretation provided overnight by Dr. Berger The CT scanner at [facility] is accredited by the [employer] and the scans are performed using protocols designed to limit radiation exposure to as low as reasonably achievable to attain images of sufficient resolution adequate for diagnostic evaluation.
[2016-11-11] MEDS: Metoprolol Tartrate 12.5mg TAB GT SCH ×2 (09:00→22:48)
[2016-11-11] MEDS ORDERED: Valproic Acid 250mg/5ml Liquid GT SCH (09:00)
[2016-11-11] MEDS ORDERED: Amiodarone 200mg tab GT SCH (09:00)
[2016-11-11] MEDS: Vancomycin 1 GM in D5W 275 ML IVPB SCH ×2 (10:02→20:44)
--- NOTE | 2016-11-11 13:14 | Consultation ---
History of Present Illness General Date patient seen: Nov 11, 2016 Chief Complaint: General Complaint Referring physician: dr Pereira Reason for Consultation: Inpatient management Present Illness HPI 76 year old male with hx of tracheostomy, PEG, assisted resident. He developed left facial swelling and redness in the last few days. He was sent to ER for further evaluation. He looks comfortable, doesn't seem to have pain. Pts voice is very low and difficult to understand. Allergies: Coded Allergies: AUBREY INHIBITORS (Verified Allergy, Unknown, ANGIOEDEMA, 09/17/12) Medication History Scheduled Acetaminophen (Acetaminophen), 650 MG ORAL Q4HR, (Reported) Amiodarone Hcl* (Pacerone*), 100 MG GT DAILY, (Reported) Amlodipine Besylate* (Amlodipine Besylate*), 5 MG GT DAILY, (Reported) Apixaban (Eliquis), 2.5 MG GT BID, (Reported) Bupropion Hcl* (Wellbutrin Xl*), 75 MG GT BID, (Reported) Clonidine Hcl* (Catapres*), 0.1 MG ORAL EVERY 6 HOURS, (Reported) Clonidine Hcl* (Catapres*), 0.1 MG GT DAILY, (Reported) Cranberry Extract (Cranberry), 200 MG GT DAILY, (Reported) Doxazosin Mesylate* (Cardura*), 2 MG GT BEDTIME, (Reported) Esomeprazole Magnesium (Nexium), 40 MG GT DAILY, (Reported) Finasteride* (Proscar*), 5 MG GT DAILY, (Reported) Furosemide* (Lasix*), 20 MG GT DAILY, (Reported) Insulin Regular, Human* (Novolin R*), 0 SUBQ .SLIDING SCALE, (Reported) Metformin Hcl* (Glucophage*), 500 MG GT TWICE A DAY, (Reported) Metoprolol Tartrate* (Metoprolol Tartrate*), 12.5 MG GT TWICE A DAY, (Reported) Multivitamin With Minerals (Multivitamins With Minerals*), 1 TAB GT DAILY, ( Reported) Potassium Chloride (Potassium Chloride), 10 MEQ GT DAILY, (Reported) Potassium Chloride (Potassium Chloride), 10 MEQ GT DAILY, (Reported) Valproate Sodium (Valproic Acid), 250 MG GT DAILY, (Reported) Scheduled PRN Magnesium Hydroxide* (Milk Of Magnesia*), 30 ML ORAL DAILY PRN for Constipation, (Reported) Miscellaneous Medications Insulin Aspart* (Novolog*), 0 SUBQ, (Reported) Discontinued Medications Al Hydroxide/mg Hydroxide (Mag-Al Liquid), 30 ML GT Q8HR, (Reported) Discontinued Reason: Pt stopped taking med Amiodarone Hcl* (Amiodarone Hcl*), 100 MG GT DAILY, (Reported) Discontinued Reason: Pt stopped taking med Amlodipine Besylate (Norvasc), 5 MG GT DAILY, (Reported) Discontinued Reason: Pt stopped taking med Apixaban (Eliquis), 2.5 MG GT TWICE A DAY, (Reported) Discontinued Reason: Pt stopped taking med Bupropion Hcl* (Wellbutrin*), 75 MG GT TWICE A DAY, (Reported) Discontinued Reason: Pt stopped taking med Clonidine Hcl* (Catapres*), 0.1 MG ORAL DAILY, (Reported) Discontinued Reason: Pt stopped taking med Doxazosin Mesylate* (Cardura*), 2 MG GT DAILY, (Reported) Discontinued Reason: Pt stopped taking med Esomeprazole Magnesium (Nexium), 40 MG ORAL DAILY, (Reported) Discontinued Reason: Pt stopped taking med Finasteride* (Proscar*), 5 MG GT DAILY, (Reported) Discontinued Reason: Pt stopped taking med Furosemide* (Lasix*), 20 MG ORAL DAILY, (Reported) Discontinued Reason: Pt stopped taking med Hydroxyzine HCl (Hydroxyzine HCl), 25 MG ORAL BEDTIME, (Reported) Discontinued Reason: Pt stopped taking med Magnesium Hydroxide* (Milk Of Magnesia*), 30 ML ORAL DAILY, (Reported) Discontinued Reason: Pt stopped taking med Metformin Hcl* (Glucophage*), 500 MG GT TWICE A DAY, (Reported) Discontinued Reason: Pt stopped taking med Metoprolol Tartrate* (Metoprolol Tartrate*), 12.5 MG GT EVERY 12 HOURS, ( Reported) Discontinued Reason: Pt stopped taking med Multivitamin With Minerals (Multivitamins With Minerals*), 1 TAB GT DAILY, ( Reported) Discontinued Reason: Pt stopped taking med Omeprazole (Omeprazole), 20 MG GT DAILY, (Reported) Discontinued Reason: Pt stopped taking med Polyvinyl Alcohol (Polyvinyl Alcohol), 15 ML BOTH EYES, (Reported) Discontinued Reason: Pt stopped taking med Risperidone* (Risperdal*), 2 MG GT BEDTIME, (Reported) Discontinued Reason: Pt stopped taking med Valproic Acid (Depakene), 1,000 MG ORAL QHS, (Reported) Discontinued Reason: Pt stopped taking med Zolpidem Tartrate* (Ambien*), 10 MG GT HS PRN for Insomnia, (Reported) Discontinued Reason: Pt stopped taking med [tylenol], 650 MG GT Q4HR PRN for For Pain, (Reported) Discontinued Reason: Pt stopped taking med Patient History Healthcare decision maker Resuscitation status Full Code Advanced Directive on File Past Medical/Surgical History Past Medical/Surgical History: (1) Diabetes (2) History of respiratory failure (3) History of CVA (cerebrovascular accident) Review of Systems All Other Systems: negative except mentioned in HPI Physical Exam General Appearance: WD/WN, alert Lines, tubes and drains: peripheral, central line HEENT: normocephalic, atraumatic Neck: non-tender, normal alignment Respiratory/Chest: chest wall non-tender, lungs clear Cardiovascular/Chest: normal peripheral pulses, normal rate Abdomen: normal bowel sounds, non tender Genitourinary/Rectal: normal genital exam, normal rectal exam Last 24 Hour Vital Signs Date Time Temp Pulse Resp B/P Pulse Ox O2 Delivery O2 Flow Rate FiO2 11/11/16 09:00 60 98/63 11/11/16 09:00 60 98/63 11/11/16 08:00 98.1 60 17 98/63 95 Room Air 11/11/16 08:00 67 11/11/16 04:00 98.2 61 20 117/72 96 Room Air 11/11/16 03:49 64 11/11/16 00:00 97.7 60 18 97/63 93 Room Air 11/10/16 23:45 60 11/10/16 21:52 67 114/63 11/10/16 20:00 97.6 67 21 114/63 96 Room Air 11/10/16 20:00 67 11/10/16 17:39 98.8 66 16 104/58 95 Room Air 11/10/16 14:35 98.8 66 16 104/58 95 Room Air 11/10/16 13:52 98.4 64 18 96/63 94 Room Air Intake and Output 11/10/16 11/11/16 19:00 07:00 Intake Total 419.0 ml Output Total 150 ml Balance 269.0 ml Intake Free Water 250 ml IV Total 169.0 ml Output Urine Total 150 ml # Voids 1 3 Laboratory Tests Test 11/10/16 14:15 11/10/16 15:30 11/11/16 06:50 White Blood Count 7.6 K/UL (4.8-10.8) 6.2 K/UL (4.8-10.8) Red Blood Count 3.93 M/UL (4.70-6.10) L 3.72 M/UL (4.70-6.10) L Hemoglobin 12.9 G/DL (14.2-18.0) L 12.6 G/DL (14.2-18.0) L Hematocrit 39.9 % (42.0-52.0) L 37.4 % (42.0-52.0) L Mean Corpuscular Volume 102 FL (80-99) H 100 FL (80-99) H Mean Corpuscular Hemoglobin 32.8 PG (27.0-31.0) H 34.0 PG (27.0-31.0) H Mean Corpuscular Hemoglobin Concent 32.3 G/DL (32.0-36.0) 33.8 G/DL (32.0-36.0) Red Cell Distribution Width 13.6 % (11.6-14.8) 13.1 % (11.6-14.8) Platelet Count 198 K/UL (150-450) 199 K/UL (150-450) Mean Platelet Volume 9.2 FL (6.5-10.1) 9.3 FL (6.5-10.1) Neutrophils (%) (Auto) 80.5 % (45.0-75.0) H 76.4 % (45.0-75.0) H Lymphocytes (%) (Auto) 8.1 % (20.0-45.0) L 10.5 % (20.0-45.0) L Monocytes (%) (Auto) 10.1 % (1.0-10.0) H 10.7 % (1.0-10.0) H Eosinophils (%) (Auto) 0.9 % (0.0-3.0) 1.8 % (0.0-3.0) Basophils (%) (Auto) 0.6 % (0.0-2.0) 0.6 % (0.0-2.0) Sodium Level 138 mEQ/L (135-145) 138 mEQ/L (135-145) Potassium Level 4.6 mEQ/L (3.4-4.9) 4.0 mEQ/L (3.4-4.9) Chloride Level 95 mEQ/L (98-107) L 95 mEQ/L (98-107) L Carbon Dioxide Level 31 mEQ/L (20-30) H 31 mEQ/L (20-30) H Anion Gap 12 (5-15) 12 (5-15) Blood Urea Nitrogen 23 mg/dL (7-23) 15 mg/dL (7-23) Creatinine 0.7 mg/dL (0.7-1.2) 0.6 mg/dL (0.7-1.2) L Estimat Glomerular Filtration Rate mL/min (>60) mL/min (>60) Glucose Level 95 mg/dL (74-106) 82 mg/dL (74-106) Calcium Level 9.7 mg/dL (8.6-10.2) 9.4 mg/dL (8.6-10.2) Total Bilirubin 0.6 mg/dL (0.0-1.2) 0.6 mg/dL (0.0-1.2) Aspartate Amino Transf (AST/SGOT) 16 U/L (5-40) 14 U/L (5-40) Alanine Aminotransferase (ALT/SGPT) 10 U/L (3-41) 9 U/L (3-41) Alkaline Phosphatase 91 U/L (40-129) 66 U/L (40-129) Total Protein 7.6 g/dL (6.6-8.7) 6.8 g/dL (6.6-8.7) Albumin 3.5 g/dL (3.5-5.2) 3.0 g/dL (3.5-5.2) L Globulin 4.1 g/dL 3.8 g/dL Albumin/Globulin Ratio 0.8 (1.0-2.7) L 0.7 (1.0-2.7) L Urine Color Yellow Urine Appearance Clear Urine pH 7 (4.5-8.0) Urine Specific [place] 1.010 (1.005-1.035) Urine Protein Negative (NEGATIVE) Urine Glucose (UA) Negative (NEGATIVE) Urine Ketones Negative (NEGATIVE) Urine Occult Blood Negative (NEGATIVE) Urine Nitrite Negative (NEGATIVE) Urine Bilirubin Negative (NEGATIVE) Urine Urobilinogen 1 MG/DL (0.0-1.0) H Urine Leukocyte Esterase Negative (NEGATIVE) Hemoglobin A1c Pending Triglycerides Level Pending Cholesterol Level Pending LDL Cholesterol Pending HDL Cholesterol Pending Cholesterol/HDL Ratio Pending Thyroid Stimulating Hormone (TSH) Pending Height (Feet): 5 Height (Inches): 9.00 Weight (Pounds): 170 Medications Current Medications Medications (Trade) Dose Ordered Sig/Yousuf Route PRN Reason Start Time Stop Time Status Last Admin Dose Admin Acetaminophen (Tylenol) 650 mg Q4H PRN ORAL fever 11/10/16 19:15 12/10/16 19:14 Al Hydroxide/Mg Hydroxide (Mylanta II) 30 ml Q6H PRN ORAL dyspepsia 11/10/16 19:15 12/10/16 19:14 Amiodarone HCl (Cordarone) 100 mg DAILY GT 11/11/16 09:00 12/11/16 08:59 11/11/16 09:00 Amlodipine Besylate (Norvasc) 5 mg DAILY GT 11/11/16 09:00 12/11/16 08:59 Apixaban (Eliquis) 2.5 mg Q12HR ORAL 11/11/16 22:00 12/11/16 21:59 Bupropion HCl (Wellbutrin) 75 mg Q12HR ORAL 11/11/16 22:00 12/11/16 21:59 Dextrose (Dextrose 50%) STAT PRN IV Hypoglycemia 11/10/16 19:15 12/10/16 19:14 Doxazosin Mesylate (Cardura) 2 mg BEDTIME GT 11/10/16 21:00 12/10/16 20:59 11/10/16 21:51 Finasteride (Proscar) 5 mg DAILY GT 11/11/16 09:00 12/11/16 08:59 11/11/16 09:00 Insulin Aspart (NovoLOG) BEFORE MEALS AND HS SUBQ 11/10/16 22:00 12/10/16 21:59 11/11/16 11:29 Lorazepam (Ativan 2mg/ml 1ml) 0.5 mg Q4H PRN IV For Anxiety 11/10/16 19:15 11/17/16 19:14 Metoprolol Tartrate (Lopressor) 12.5 mg Q12H GT 11/10/16 21:00 12/10/16 20:59 11/10/16 21:52 Morphine Sulfate (Morphine Sulfate) 1 mg Q4H PRN IVP For Pain 11/10/16 19:30 11/17/16 19:29 Ondansetron HCl (Zofran) 4 mg Q6H PRN IVP Nausea & Vomiting 11/10/16 19:15 12/10/16 19:14 Piperacillin Sod/ Tazobactam Sod 3.375 gm/Dextrose 110 ml @ 27.5 mls/hr Q8HR IVPB 11/10/16 22:00 11/17/16 21:59 11/11/16 05:48 Polyethylene Glycol (Miralax) 17 gm HSPRN PRN GT Constipation 11/10/16 19:15 12/10/16 19:14 Valproic Acid (Depakene) 250 mg DAILY GT 11/11/16 09:00 12/11/16 08:59 11/11/16 09:00 Vancomycin HCl (Vanco rx to dose) 1 ea DAILY PRN MISC . 11/11/16 09:15 12/11/16 09:14 Vancomycin HCl/ Dextrose (Vancomycin/D5W) 275 ml @ 183.708 mls/hr Q12HR IVPB 11/11/16 09:00 11/16/16 08:59 11/11/16 10:02 Zolpidem Tartrate (Ambien) 5 mg HSPRN PRN ORAL Insomnia 11/10/16 19:15 12/10/16 19:14 Assessment/Plan Problem List: (1) Respiratory insufficiency ICD Codes: R06.89 - Respiratory insufficiency SNOMED: 347286606 (2) Cellulitis (3) HTN (hypertension) ICD Codes: I10 - HTN (hypertension) SNOMED: 00424665 (4) History of CVA (cerebrovascular accident) ICD Codes: Z86.73 - History of CVA (cerebrovascular accident) SNOMED: 414481030 Assessment/Plan titrate fio2 respiratory treatment ENT evaluation resume gtube feeding dvt prophylaxis broad spectrum antibiotics dvt prophlaxis. MARY SELF Nov 11, 2016 13:14
--- NOTE | 2016-11-11 15:28 | Infectious Diseases Prog Note ---
Assessment/Plan Problems: (1) Cellulitis and abscess of face Assessment & Plan: continue zosyn and vancomycin empirically for now, CT scan showed soft tissue swelling, and no abscess, await blood culture , ENT is following (2) Cellulitis Assessment & Plan: of the neck , CT scan showed cellulitis and right lower thyroids pole mass , continue zosyn and vancomycin , await culture results (3) Sepsis Assessment & Plan: due to the above, await blood culture, continue wide spectrum antibiotics (4) Diabetes Assessment & Plan: recommend tight glycemic control to keep blood glucose between 80-120 (5) HTN (hypertension) Assessment & Plan: continue meds to keep SBP <140 (6) Thyroid mass of unclear etiology Assessment & Plan: recommend US and FNA biopsy , and endocrinology consultation Subjective HEENT: Reports: other - left facial swelling with redness Allergies: Coded Allergies: AUBREY INHIBITORS (Verified Allergy, Unknown, ANGIOEDEMA, 09/17/12) All Systems: reviewed and negative except above Objective Vital Signs Last 24 Hour Vital Signs Date Time Temp Pulse Resp B/P Pulse Ox O2 Delivery O2 Flow Rate FiO2 11/11/16 12:00 74 11/11/16 12:00 97.4 69 16 114/71 97 Room Air 11/11/16 09:00 60 98/63 11/11/16 09:00 60 98/63 11/11/16 08:00 98.1 60 17 98/63 95 Room Air 11/11/16 08:00 67 11/11/16 04:00 98.2 61 20 117/72 96 Room Air 11/11/16 03:49 64 11/11/16 00:00 97.7 60 18 97/63 93 Room Air 11/10/16 23:45 60 11/10/16 21:52 67 114/63 11/10/16 20:00 97.6 67 21 114/63 96 Room Air 11/10/16 20:00 67 11/10/16 17:39 98.8 66 16 104/58 95 Room Air Height (Feet): 5 Height (Inches): 9.00 Weight (Pounds): 170 General Appearance: no acute distress HEENT: atraumatic, anicteric, mucous membranes moist, PERRL, no JVD, other - left facial swelling and redness Respiratory/Chest: chest wall non-tender, lungs clear, normal breath sounds, no respiratory distress, no accessory muscle use Cardiovascular: normal peripheral pulses, normal rate, regular rhythm, no gallop/murmur, no JVD Abdomen: normal bowel sounds, soft, non tender, no organomegaly, non distended , no mass Extremities: no cyanosis, no clubbing Skin: no rash, no lesions Laboratory Tests Test 11/10/16 15:30 11/11/16 06:50 Urine Color Yellow Urine Appearance Clear Urine pH 7 (4.5-8.0) Urine Specific [place] 1.010 (1.005-1.035) Urine Protein Negative (NEGATIVE) Urine Glucose (UA) Negative (NEGATIVE) Urine Ketones Negative (NEGATIVE) Urine Occult Blood Negative (NEGATIVE) Urine Nitrite Negative (NEGATIVE) Urine Bilirubin Negative (NEGATIVE) Urine Urobilinogen 1 MG/DL (0.0-1.0) H Urine Leukocyte Esterase Negative (NEGATIVE) White Blood Count 6.2 K/UL (4.8-10.8) Red Blood Count 3.72 M/UL (4.70-6.10) L Hemoglobin 12.6 G/DL (14.2-18.0) L Hematocrit 37.4 % (42.0-52.0) L Mean Corpuscular Volume 100 FL (80-99) H Mean Corpuscular Hemoglobin 34.0 PG (27.0-31.0) H Mean Corpuscular Hemoglobin Concent 33.8 G/DL (32.0-36.0) Red Cell Distribution Width 13.1 % (11.6-14.8) Platelet Count 199 K/UL (150-450) Mean Platelet Volume 9.3 FL (6.5-10.1) Neutrophils (%) (Auto) 76.4 % (45.0-75.0) H Lymphocytes (%) (Auto) 10.5 % (20.0-45.0) L Monocytes (%) (Auto) 10.7 % (1.0-10.0) H Eosinophils (%) (Auto) 1.8 % (0.0-3.0) Basophils (%) (Auto) 0.6 % (0.0-2.0) Sodium Level 138 mEQ/L (135-145) Potassium Level 4.0 mEQ/L (3.4-4.9) Chloride Level 95 mEQ/L (98-107) L Carbon Dioxide Level 31 mEQ/L (20-30) H Anion Gap 12 (5-15) Blood Urea Nitrogen 15 mg/dL (7-23) Creatinine 0.6 mg/dL (0.7-1.2) L Estimat Glomerular Filtration Rate mL/min (>60) Glucose Level 82 mg/dL (74-106) Hemoglobin A1c Pending Calcium Level 9.4 mg/dL (8.6-10.2) Total Bilirubin 0.6 mg/dL (0.0-1.2) Aspartate Amino Transf (AST/SGOT) 14 U/L (5-40) Alanine Aminotransferase (ALT/SGPT) 9 U/L (3-41) Alkaline Phosphatase 66 U/L (40-129) Total Protein 6.8 g/dL (6.6-8.7) Albumin 3.0 g/dL (3.5-5.2) L Globulin 3.8 g/dL Albumin/Globulin Ratio 0.7 (1.0-2.7) L Triglycerides Level Pending Cholesterol Level Pending LDL Cholesterol Pending HDL Cholesterol Pending Cholesterol/HDL Ratio Pending Thyroid Stimulating Hormone (TSH) Pending Current Medications Medications (Trade) Dose Ordered Sig/Yousuf Route PRN Reason Start Time Stop Time Status Last Admin Dose Admin Acetaminophen (Tylenol) 650 mg Q4H PRN ORAL fever 11/10/16 19:15 12/10/16 19:14 Al Hydroxide/Mg Hydroxide (Mylanta II) 30 ml Q6H PRN ORAL dyspepsia 11/10/16 19:15 12/10/16 19:14 Amiodarone HCl (Cordarone) 100 mg DAILY GT 11/11/16 09:00 12/11/16 08:59 11/11/16 09:00 Amlodipine Besylate (Norvasc) 5 mg DAILY GT 11/11/16 09:00 12/11/16 08:59 Apixaban (Eliquis) 2.5 mg Q12HR ORAL 11/11/16 22:00 12/11/16 21:59 Bupropion HCl (Wellbutrin) 75 mg Q12HR ORAL 11/11/16 22:00 12/11/16 21:59 Dextrose (Dextrose 50%) STAT PRN IV Hypoglycemia 11/10/16 19:15 12/10/16 19:14 Doxazosin Mesylate (Cardura) 2 mg BEDTIME GT 11/10/16 21:00 12/10/16 20:59 11/10/16 21:51 Finasteride (Proscar) 5 mg DAILY GT 11/11/16 09:00 12/11/16 08:59 11/11/16 09:00 Insulin Aspart (NovoLOG) BEFORE MEALS AND HS SUBQ 11/10/16 22:00 12/10/16 21:59 11/11/16 11:29 Lorazepam (Ativan 2mg/ml 1ml) 0.5 mg Q4H PRN IV For Anxiety 11/10/16 19:15 11/17/16 19:14 Metoprolol Tartrate (Lopressor) 12.5 mg Q12H GT 11/10/16 21:00 12/10/16 20:59 11/10/16 21:52 Morphine Sulfate (Morphine Sulfate) 1 mg Q4H PRN IVP For Pain 11/10/16 19:30 11/17/16 19:29 Ondansetron HCl (Zofran) 4 mg Q6H PRN IVP Nausea & Vomiting 11/10/16 19:15 12/10/16 19:14 Piperacillin Sod/ Tazobactam Sod 3.375 gm/Dextrose 110 ml @ 27.5 mls/hr Q8HR IVPB 11/10/16 22:00 11/17/16 21:59 11/11/16 13:23 Polyethylene Glycol (Miralax) 17 gm HSPRN PRN GT Constipation 11/10/16 19:15 12/10/16 19:14 Valproic Acid (Depakene) 250 mg DAILY GT 11/11/16 09:00 12/11/16 08:59 11/11/16 09:00 Vancomycin HCl (Vanco rx to dose) 1 ea DAILY PRN MISC . 11/11/16 09:15 12/11/16 09:14 Vancomycin HCl/ Dextrose (Vancomycin/D5W) 275 ml @ 183.708 mls/hr Q12HR IVPB 11/11/16 09:00 11/16/16 08:59 11/11/16 10:02 Zolpidem Tartrate (Ambien) 5 mg HSPRN PRN ORAL Insomnia 11/10/16 19:15 12/10/16 19:14 Aida Frederick M.D. Nov 11, 2016 15:28
--- NOTE | 2016-11-11 18:57 | Consultation ---
DATE OF CONSULTATION: 11/11/2016 HEAD AND NECK SURGERY/ENT CONSULTATION REQUESTING PHYSICIAN: Laina Pereira M.D. CONSULTING PHYSICIAN: Nirmal Jaime M.D. INDICATION FOR CONSULTATION/HISTORY OF PRESENT ILLNESS: The patient is a 76-year-old male, who I have been asked to see regarding swelling in the left side of his face. He has past medical history of dementia, respiratory insufficiency status post tracheostomy, which is closed, thyroid mass of unclear etiology, sinusitis on CT scan on the left side and showing that have resolved from the right side in a previous CT scan. He had a PEG. He has diabetes, hypertension, has had sepsis in the past and respiratory insufficiency. His height is 175.26 centimeters. His weight is 77.111 kilograms. BMI is 25.1 kilograms/meter squared. PHYSICAL EXAMINATION: HEENT: Left side of his face has some swelling. It is not soft, but not a hard. Certainly, not fluctuant at this point, which is also noted on the CT scan. There is no specific fluid collection. Nose, red on the left mucosa. NECK: No significant swelling and he is able to talk and was lying down when I came in the room, so he does not have an airway issue. ASSESSMENT: He definitely has cellulitis, abscess of the left face, this does not appear to be due to sinusitis because there is no breakthrough on the CT scan, through the sinus cartilage.. He also seems to be responding to the antibiotics that were given to him, Zosyn and vancomycin by the Infectious Disease doctor. PLAN: Warm, moist pack. I will see him tomorrow if it is more fluctuant and there is a chance that an aspiration may actually deliver some fluid. I will aspirate or if he continues to go down on its own, we will continue to follow as is. Thank you very much for asking my opinion in care and treatment of the patient. Nirmal Jaime M.D. DR: KETTY JOB#: [id number] CC: SANDEEP
[2016-11-11] MEDS: Doxazosin 1mg Tab GT SCH (20:45)
--- NOTE | 2016-11-11 20:55 | General Progress Note ---
Assessment/Plan Assessment/Plan ASSESSMENT: 1. Left-sided facial erythema, cellulitis, is on antibiotics. Continue abx and evaluate right thyroid nodule 2. Anemia secondary to chronic disease. 3. Right lower lobe thyroid nodule 19 x 11mm 4. Diabetes mellitus. 5. Atrial fibrillation. 6. Cellulitis of the face. 7. Diabetes mellitus. 8. Hypertension. 9. Psychiatric history. 10. Afib on eliquis RECOMMENDATIONS: 1. Monitor counts. 2. Transfuse to hemoglobin >7 3. CAT scan imaging reviewed 4. US thyroid lesion, pending TSH 5. TSH pending 6. Followup on ID, endo, Pulmonary recs 7. Tight glycemic control. 8. DVT ppx with eliquis. 9. GI ppx as needed. 10. Pain control. 11. Antibiotics as needed. 12. staff Thank you, Jax Alcaraz MD Subjective Constitutional: Reports: no symptoms HEENT: Reports: no symptoms Cardiovascular: Reports: no symptoms Respiratory: Reports: no symptoms Gastrointestinal/Abdominal: Reports: poor appetite Genitourinary: Reports: no symptoms Neurologic/Psychiatric: Reports: anxiety Endocrine: Reports: no symptoms Hematologic/Lymphatic: Reports: anemia Allergies: Coded Allergies: AUBREY INHIBITORS (Verified Allergy, Unknown, ANGIOEDEMA, 09/17/12) Subjective stable, no bleeding reported, no night sweats, no hematochzia Objective Last 24 Hour Vital Signs Date Time Temp Pulse Resp B/P Pulse Ox O2 Delivery O2 Flow Rate FiO2 11/11/16 20:00 97.8 65 19 118/63 96 Room Air 11/11/16 16:00 98.1 74 20 126/72 93 Room Air 11/11/16 16:00 72 11/11/16 12:00 74 11/11/16 12:00 97.4 69 16 114/71 97 Room Air 11/11/16 09:00 60 98/63 11/11/16 09:00 60 98/63 11/11/16 08:00 98.1 60 17 98/63 95 Room Air 11/11/16 08:00 67 11/11/16 04:00 98.2 61 20 117/72 96 Room Air 11/11/16 03:49 64 11/11/16 00:00 97.7 60 18 97/63 93 Room Air 11/10/16 23:45 60 11/10/16 21:52 67 114/63 Intake and Output 11/10/16 11/11/16 19:00 07:00 Intake Total 419.0 ml Output Total 150 ml Balance 269.0 ml Intake Free Water 250 ml IV Total 169.0 ml Output Urine Total 150 ml # Voids 1 3 Laboratory Tests 11/11/16 06:50: White Blood Count 6.2, Red Blood Count 3.72L, Hemoglobin 12.6L, Hematocrit 37.4L , Mean Corpuscular Volume 100H, Mean Corpuscular Hemoglobin 34.0H, Mean Corpuscular Hemoglobin Concent 33.8, Red Cell Distribution Width 13.1, Platelet Count 199, Mean Platelet Volume 9.3, Neutrophils (%) (Auto) 76.4H, Lymphocytes ( %) (Auto) 10.5L, Monocytes (%) (Auto) 10.7H, Eosinophils (%) (Auto) 1.8, Basophils (%) (Auto) 0.6, Sodium Level 138, Potassium Level 4.0, Chloride Level 95L, Carbon Dioxide Level 31H, Anion Gap 12, Blood Urea Nitrogen 15, Creatinine 0.6L, Estimat Glomerular Filtration Rate , Glucose Level 82, Hemoglobin A1c [ Pending], Calcium Level 9.4, Total Bilirubin 0.6, Aspartate Amino Transf (AST/ SGOT) 14, Alanine Aminotransferase (ALT/SGPT) 9, Alkaline Phosphatase 66, Total Protein 6.8, Albumin 3.0L, Globulin 3.8, Albumin/Globulin Ratio 0.7L, Triglycerides Level [Pending], Cholesterol Level [Pending], LDL Cholesterol [ Pending], HDL Cholesterol [Pending], Cholesterol/HDL Ratio [Pending], Thyroid Stimulating Hormone (TSH) [Pending] Height (Feet): 5 Height (Inches): 9.00 Weight (Pounds): 170 General Appearance: no apparent distress EENT: TMs normal Neck: normal alignment Cardiovascular: regular rhythm Respiratory/Chest: normal breath sounds Abdomen: non tender Genitourinary/Rectal: heme negative stool Extremities: normal inspection Edema: 1+ Leg (L), 1+ Leg (R) Neurologic: alert Skin: warm/dry - facial swelling/cellulitis is noted Jax Alcaraz Nov 11, 2016 20:55
[2016-11-11] MEDS ORDERED: BuPROPion 75mg Tab ORAL SCH (22:00)
[2016-11-11] MEDS ORDERED: Eliquis 2.5mg tablet ORAL SCH (22:00)
[2016-11-12] VITALS (7 sets, daily range): BP systolic 95–137; BP diastolic 61–81
[2016-11-12] MEDS ORDERED: Morphine Sulfate 2mg/ml Inj IVP PRN (03:30)
[2016-11-12] MEDS ORDERED: Zolpidem 5mg tab ORAL PRN (03:34)
[2016-11-12] MEDS ORDERED: Mylanta II UD 30ml ORAL PRN (03:34)
[2016-11-12] MEDS ORDERED: LORazepam Inj 2mg/ml 1ml IV PRN (03:37)
[2016-11-12] MEDS: NovoLOG Insulin Flexpen SUBQ SCH ×4 (06:30→20:55)
[2016-11-12] MEDS: Piperacillin/Tazobactam 3.375 GM in D5W 110 ML IVPB SCH ×3 (06:32→23:13)
[2016-11-12 08:58] LABS: EOSINOPHILS % (AUTO) 3.9 % (0.0-3.0); LYMPHOCYTES % (AUTO) 12.2 % (20.0-45.0); MEAN CORPUSCULAR HEMOGLOBIN 33.4 PG (27.0-31.0); MEAN CORPUSCULAR HGB CONC 33.5 G/DL (32.0-36.0); MEAN CORPUSCULAR VOLUME 100 FL (80-99); MEAN PLATELET VOLUME 9.5 FL (6.5-10.1); MONOCYTES % (AUTO) 10.8 % (1.0-10.0); NEUTROPHILS % (AUTO) 72.2 % (45.0-75.0); PLATELET COUNT 223 K/UL (150-450); RED BLOOD COUNT 3.71 M/UL (4.70-6.10); RED CELL DISTRIBUTION WIDTH 13.3 % (11.6-14.8); WHITE BLOOD COUNT 5.1 K/UL (4.8-10.8)
[2016-11-12 09:18] LABS: ALANINE AMINOTRANSFERASE 8 U/L (3-41); ALBUMIN/GLOBULIN RATIO 0.8 (1.0-2.7); ANION GAP 9 (5-15); ASPARTATE AMINO TRANSFERASE 14 U/L (5-40); CALCIUM 9.6 mg/dL (8.6-10.2); CARBON DIOXIDE 30 mEQ/L (20-30); CHLORIDE 99 mEQ/L (98-107); CREATININE 0.5 mg/dL (0.7-1.2); HEMOLYSIS 5; MAGNESIUM 1.9 mg/dL (1.7-2.5); PHOSPHORUS 3.1 mg/dL (2.5-4.8); POTASSIUM 4.1 mEQ/L (3.4-4.9); SODIUM 138 mEQ/L (135-145); TOTAL PROTEIN 6.4 g/dL (6.6-8.7)
--- NOTE | 2016-11-12 09:26 | Diagnostic Imaging Report ---
Indication: Evaluation of abnormal thyroid demonstrated on recent CT Technique: Grayscale and duplex images of the thyroid Comparison: Reference made to CT scan of 11/10/2016 Findings: Right thyroid lobe measures 4.2 cm length x 1.8 cm AP. Left thyroid lobe measures 3.5 cm length x 1.5 cm AP. Both thyroid lobes demonstrate normal echogenicity. Multiple nodules are present on the right. Largest of these is in the lower pole measuring 2.5 cm long axis dimension. The left thyroid lobe demonstrates no focal abnormality. Impression: Multiple right thyroid nodules, largest in the lower pole and 2.5 cm long axis dimension. Appearance nonspecific, although lack of significant interval growth since CT scan of 2012 indicates this is most likely benign.
--- NOTE | 2016-11-12 09:31 | Diagnostic Imaging Report ---
Indication: SOB Technique: One view of the chest Comparison: 01/14/2014 Findings: Lungs and pleural spaces are clear. The heart size is upper limits normal. Aorta is tortuous calcified. There is a left chest bifocal pacemaker. Findings are unchanged Impression: No acute process. Findings as noted
[2016-11-12] MEDS: Metoprolol Tartrate 12.5mg TAB GT SCH ×2 (09:49→21:00)
[2016-11-12] MEDS: Valproic Acid 250mg/5ml Liquid GT SCH (09:49)
[2016-11-12] MEDS: Eliquis 2.5mg tablet ORAL SCH ×2 (09:49→21:34)
[2016-11-12] MEDS: Amiodarone 200mg tab GT SCH (09:50)
[2016-11-12] MEDS: BuPROPion 75mg Tab ORAL SCH ×2 (09:51→21:33)
[2016-11-12] MEDS: Vancomycin 1 GM in D5W 275 ML IVPB SCH ×2 (09:51→21:34)
--- NOTE | 2016-11-12 11:59 | General Progress Note ---
Assessment/Plan Problem List: (1) History of CVA (cerebrovascular accident) ICD Codes: Z86.73 - History of CVA (cerebrovascular accident) SNOMED: 337372938 (2) History of respiratory failure ICD Codes: Z87.09 - History of respiratory failure SNOMED: 735570668 (3) Dysphagia ICD Codes: R13.10 - Dysphagia SNOMED: 70750196 (4) PEG (percutaneous endoscopic gastrostomy) adjustment/replacement/removal ICD Codes: Z43.1 - Encounter for attention to gastrostomy SNOMED: 901630638 (5) Cellulitis and abscess of face ICD Codes: L03.211 - Cellulitis of face; L02.01 - Cutaneous abscess of face SNOMED: 790624622 (6) Swelling of left side of face ICD Codes: R22.0 - Localized swelling, mass and lump, head SNOMED: 810115218 (7) Diabetes ICD Codes: E11.9 - Diabetes SNOMED: 24877391 (8) HTN (hypertension) ICD Codes: I10 - HTN (hypertension) SNOMED: 41941542 (9) Sepsis ICD Codes: A41.9 - Sepsis SNOMED: 66801008 (10) Thyroid mass of unclear etiology ICD Codes: E07.89 - Other specified disorders of thyroid SNOMED: 929139294 Status: progressing Assessment/Plan discussed w heme/onc re plan of care for his ent possible tumor findings afebrile abx per id Subjective ROS Limited/Unobtainable: Yes Constitutional: Reports: no symptoms Allergies: Coded Allergies: AUBREY INHIBITORS (Verified Allergy, Unknown, ANGIOEDEMA, 09/17/12) Objective Last 24 Hour Vital Signs Date Time Temp Pulse Resp B/P Pulse Ox O2 Delivery O2 Flow Rate FiO2 11/12/16 09:50 66 130/81 11/12/16 09:49 66 130/81 11/12/16 09:43 130/81 11/12/16 08:00 97.7 66 18 95/64 98 Room Air 11/12/16 04:00 96.7 70 17 137/71 96 Room Air 11/12/16 00:34 98.4 65 19 108/61 93 Room Air 11/11/16 22:48 63 89/60 Room Air 11/11/16 22:48 63 89/60 11/11/16 20:00 97.8 65 19 118/63 96 Room Air 11/11/16 16:00 98.1 74 20 126/72 93 Room Air 11/11/16 16:00 72 11/11/16 12:00 74 11/11/16 12:00 97.4 69 16 114/71 97 Room Air Intake and Output 11/11/16 11/12/16 19:00 07:00 Intake Total 497.5 ml 735 ml Balance 497.5 ml 735 ml Intake Free Water 100 ml IV Total 467.5 ml 275 ml Tube Feeding 30 ml 360 ml # Voids 3 4 Laboratory Tests 11/12/16 08:15: White Blood Count 5.1, Red Blood Count 3.71L, Hemoglobin 12.4L, Hematocrit 37.0L , Mean Corpuscular Volume 100H, Mean Corpuscular Hemoglobin 33.4H, Mean Corpuscular Hemoglobin Concent 33.5, Red Cell Distribution Width 13.3, Platelet Count 223, Mean Platelet Volume 9.5, Neutrophils (%) (Auto) 72.2, Lymphocytes (% ) (Auto) 12.2L, Monocytes (%) (Auto) 10.8H, Eosinophils (%) (Auto) 3.9H, Basophils (%) (Auto) 1.0, Sodium Level 138, Potassium Level 4.1, Chloride Level 99, Carbon Dioxide Level 30, Anion Gap 9, Blood Urea Nitrogen 11, Creatinine 0.5L, Estimat Glomerular Filtration Rate , Glucose Level 108H, Calcium Level 9.6 , Phosphorus Level 3.1, Magnesium Level 1.9, Total Bilirubin 0.4, Aspartate Amino Transf (AST/SGOT) 14, Alanine Aminotransferase (ALT/SGPT) 8, Alkaline Phosphatase 65, Total Protein 6.4L, Albumin 2.9L, Globulin 3.5, Albumin/ Globulin Ratio 0.8L, Vancomycin Level Trough 15.8H Height (Feet): 5 Height (Inches): 9.00 Weight (Pounds): 170 EENT: PERRL/EOMI Neck: supple Cardiovascular: normal rate Respiratory/Chest: lungs clear Abdomen: soft Laina Pereira MD Nov 12, 2016 11:59
--- NOTE | 2016-11-12 14:20 | Cardiology Report ---
APPROVED REPORT EKG Measurement Heart [id number] Normal sinus rhythm Normal ECG
[2016-11-12 14:46] LABS: CHOLESTEROL 160 mg/dL (< 200); CHOLESTEROL/HDL RATIO 3.8 (3.3-4.4); LDL CHOLESTEROL (CALC.) 97 mg/dL (60-99)
--- NOTE | 2016-11-12 16:48 | General Progress Note ---
Progress Note Progress Note ENT S: pt feels a bit better and nurse report less swollen today right face O: Face on left is less swollen without erythema today, minimal fluctuance. Neck AGUSTINA-unchanged from 2012 WBC down to 5.1 A: 1. Decrease swelling left face and erythema has resolved. 2. no need to do FNA/bx of thyroid since no sig. change in 4 plus years. P: I will see -pt tomorrow, if able to aspirate, will do so. No plans to operate on this man since he is improving with present treatment. Will ask nurse to get consent for I/D and aspiration so avail. if needed. Can do at bedside. CONI MONREAL Nov 12, 2016 16:48
--- NOTE | 2016-11-12 18:01 | Infectious Diseases Prog Note ---
Assessment/Plan Problems: (1) Cellulitis and abscess of face Assessment & Plan: continue zosyn and vancomycin empirically for now, CT scan showed soft tissue swelling, and no abscess, await blood culture , ENT is following (2) Cellulitis Assessment & Plan: of the neck , CT scan showed cellulitis and right lower thyroids pole mass , continue zosyn and vancomycin , await culture results (3) Sepsis Assessment & Plan: due to the above, await blood culture, continue wide spectrum antibiotics (4) Diabetes Assessment & Plan: recommend tight glycemic control to keep blood glucose between 80-120 (5) HTN (hypertension) Assessment & Plan: continue meds to keep SBP <140 (6) Thyroid mass of unclear etiology Assessment & Plan: recommend US and FNA biopsy , and endocrinology consultation Subjective HEENT: Reports: other - left facial swelling, and redness Allergies: Coded Allergies: AUBREY INHIBITORS (Verified Allergy, Unknown, ANGIOEDEMA, 09/17/12) All Systems: reviewed and negative except above Objective Vital Signs Last 24 Hour Vital Signs Date Time Temp Pulse Resp B/P Pulse Ox O2 Delivery O2 Flow Rate FiO2 11/12/16 16:00 98.4 60 18 107/66 95 Room Air 11/12/16 12:02 97.1 60 18 107/65 95 Room Air 11/12/16 09:50 66 130/81 11/12/16 09:49 66 130/81 11/12/16 09:43 130/81 11/12/16 08:00 97.7 66 18 95/64 98 Room Air 11/12/16 04:00 96.7 70 17 137/71 96 Room Air 11/12/16 00:34 98.4 65 19 108/61 93 Room Air 11/11/16 22:48 63 89/60 Room Air 11/11/16 22:48 63 89/60 11/11/16 20:00 97.8 65 19 118/63 96 Room Air Height (Feet): 5 Height (Inches): 9.00 Weight (Pounds): 170 General Appearance: WD/WN, no acute distress HEENT: atraumatic, anicteric, mucous membranes moist, PERRL, EOMI, no JVD, other - left facial swelling, and redness Respiratory/Chest: chest wall non-tender, lungs clear, normal breath sounds, no respiratory distress, no accessory muscle use Cardiovascular: normal peripheral pulses, normal rate, regular rhythm, no gallop/murmur, no JVD Abdomen: normal bowel sounds, soft, non tender, no organomegaly, non distended , no mass, no scars Extremities: no cyanosis, no clubbing Skin: no rash, no lesions, no ulcers Microbiology Date/Time Source Procedure Growth Status 11/10/16 14:15 Blood Blood Culture - Preliminary NO GROWTH AFTER 24 HOURS Resulted 11/10/16 14:15 Blood Blood Culture - Preliminary NO GROWTH AFTER 24 HOURS Resulted Laboratory Tests Test 11/12/16 08:15 White Blood Count 5.1 K/UL (4.8-10.8) Red Blood Count 3.71 M/UL (4.70-6.10) L Hemoglobin 12.4 G/DL (14.2-18.0) L Hematocrit 37.0 % (42.0-52.0) L Mean Corpuscular Volume 100 FL (80-99) H Mean Corpuscular Hemoglobin 33.4 PG (27.0-31.0) H Mean Corpuscular Hemoglobin Concent 33.5 G/DL (32.0-36.0) Red Cell Distribution Width 13.3 % (11.6-14.8) Platelet Count 223 K/UL (150-450) Mean Platelet Volume 9.5 FL (6.5-10.1) Neutrophils (%) (Auto) 72.2 % (45.0-75.0) Lymphocytes (%) (Auto) 12.2 % (20.0-45.0) L Monocytes (%) (Auto) 10.8 % (1.0-10.0) H Eosinophils (%) (Auto) 3.9 % (0.0-3.0) H Basophils (%) (Auto) 1.0 % (0.0-2.0) Sodium Level 138 mEQ/L (135-145) Potassium Level 4.1 mEQ/L (3.4-4.9) Chloride Level 99 mEQ/L (98-107) Carbon Dioxide Level 30 mEQ/L (20-30) Anion Gap 9 (5-15) Blood Urea Nitrogen 11 mg/dL (7-23) Creatinine 0.5 mg/dL (0.7-1.2) L Estimat Glomerular Filtration Rate mL/min (>60) Glucose Level 108 mg/dL (74-106) H Calcium Level 9.6 mg/dL (8.6-10.2) Phosphorus Level 3.1 mg/dL (2.5-4.8) Magnesium Level 1.9 mg/dL (1.7-2.5) Total Bilirubin 0.4 mg/dL (0.0-1.2) Aspartate Amino Transf (AST/SGOT) 14 U/L (5-40) Alanine Aminotransferase (ALT/SGPT) 8 U/L (3-41) Alkaline Phosphatase 65 U/L (40-129) Total Protein 6.4 g/dL (6.6-8.7) L Albumin 2.9 g/dL (3.5-5.2) L Globulin 3.5 g/dL Albumin/Globulin Ratio 0.8 (1.0-2.7) L Vancomycin Level Trough 15.8 ug/mL (5.0-12.0) H Current Medications Medications (Trade) Dose Ordered Sig/Yousuf Route PRN Reason Start Time Stop Time Status Last Admin Dose Admin Acetaminophen (Tylenol) 650 mg Q4H PRN ORAL fever 11/12/16 03:34 12/12/16 03:33 Al Hydroxide/Mg Hydroxide (Mylanta II) 30 ml Q6H PRN ORAL dyspepsia 11/12/16 03:34 12/12/16 03:33 Amiodarone HCl (Cordarone) 100 mg DAILY GT 11/12/16 09:00 12/12/16 08:59 11/12/16 09:50 Amlodipine Besylate (Norvasc) 5 mg DAILY GT 11/12/16 09:00 12/12/16 08:59 11/12/16 09:50 Apixaban (Eliquis) 2.5 mg Q12HR ORAL 11/12/16 09:00 12/12/16 08:59 11/12/16 09:49 Bupropion HCl (Wellbutrin) 75 mg Q12HR ORAL 11/12/16 09:00 12/12/16 08:59 11/12/16 09:51 Dextrose (Dextrose 50%) STAT PRN IV Hypoglycemia 11/12/16 03:35 12/12/16 03:34 Doxazosin Mesylate (Cardura) 2 mg BEDTIME GT 11/12/16 21:00 12/12/16 20:59 Finasteride (Proscar) 5 mg DAILY GT 11/12/16 09:00 12/12/16 08:59 11/12/16 09:50 Insulin Aspart (NovoLOG) BEFORE MEALS AND HS SUBQ 11/12/16 06:30 12/12/16 06:29 11/12/16 11:43 Lorazepam (Ativan 2mg/ml 1ml) 0.5 mg Q4H PRN IV For Anxiety 11/12/16 03:37 11/19/16 03:36 Metoprolol Tartrate (Lopressor) 12.5 mg Q12H GT 11/12/16 09:00 12/12/16 08:59 11/12/16 09:49 Morphine Sulfate (Morphine Sulfate) 1 mg Q4H PRN IVP For Pain 11/12/16 03:30 11/19/16 03:29 Ondansetron HCl (Zofran) 4 mg Q6H PRN IVP Nausea & Vomiting 11/12/16 03:38 12/12/16 03:37 Piperacillin Sod/ Tazobactam Sod 3.375 gm/Dextrose 110 ml @ 27.5 mls/hr Q8HR IVPB 11/12/16 06:00 11/19/16 05:59 11/12/16 13:39 Polyethylene Glycol (Miralax) 17 gm HSPRN PRN GT Constipation 11/12/16 03:39 12/12/16 03:38 Valproic Acid (Depakene) 250 mg DAILY GT 11/12/16 09:00 12/12/16 08:59 11/12/16 09:49 Vancomycin HCl (Vanco rx to dose) 1 ea DAILY PRN MISC . 11/12/16 09:00 12/12/16 08:59 Vancomycin HCl/ Dextrose (Vancomycin/D5W) 275 ml @ 183.708 mls/hr Q12HR IVPB 11/12/16 09:00 11/17/16 08:59 11/12/16 09:51 Zolpidem Tartrate (Ambien) 5 mg HSPRN PRN ORAL Insomnia 11/12/16 03:34 12/12/16 03:33 Aida Frederick M.D. Nov 12, 2016 18:01
--- NOTE | 2016-11-12 19:21 | General Progress Note ---
Assessment/Plan Assessment/Plan ASSESSMENT: 1. Left-sided facial erythema, cellulitis, is on antibiotics. Continue abx. Have reviewed imaging of thyroid, does not appear change in nodules 2. Anemia secondary to chronic disease. 3. Right lower lobe thyroid nodule 19 x 11mm, no major change in 4 years 4. Diabetes mellitus. 5. Atrial fibrillation. 6. Cellulitis of the face. 7. Diabetes mellitus. 8. Hypertension. 9. Psychiatric history. 10. Afib on eliquis RECOMMENDATIONS: 1. Monitor counts. 2. Transfuse to hemoglobin >7 3. CAT scan imaging reviewed as well as US of thyroid, appears benign 4. Followup on ID, endo, Pulmonary recs, ENT recs 5. Tight glycemic control. 6. DVT ppx with eliquis. 7. GI ppx as needed. 8. Pain control. 9. Antibiotics as needed. 10. staff Thank you, Jax Alcaraz MD Subjective Constitutional: Reports: no symptoms HEENT: Reports: no symptoms Cardiovascular: Reports: no symptoms Respiratory: Reports: no symptoms Gastrointestinal/Abdominal: Reports: poor appetite Genitourinary: Reports: no symptoms Neurologic/Psychiatric: Reports: no symptoms Endocrine: Reports: no symptoms Hematologic/Lymphatic: Reports: anemia Allergies: Coded Allergies: AUBREY INHIBITORS (Verified Allergy, Unknown, ANGIOEDEMA, 09/17/12) Subjective stable, no bleeding reported, no night sweats, face appears better Objective Last 24 Hour Vital Signs Date Time Temp Pulse Resp B/P Pulse Ox O2 Delivery O2 Flow Rate FiO2 11/12/16 16:00 98.4 60 18 107/66 95 Room Air 11/12/16 12:02 97.1 60 18 107/65 95 Room Air 11/12/16 09:50 66 130/81 11/12/16 09:49 66 130/81 11/12/16 09:43 130/81 11/12/16 08:00 97.7 66 18 95/64 98 Room Air 11/12/16 04:00 96.7 70 17 137/71 96 Room Air 11/12/16 00:34 98.4 65 19 108/61 93 Room Air 11/11/16 22:48 63 89/60 Room Air 11/11/16 22:48 63 89/60 11/11/16 20:00 97.8 65 19 118/63 96 Room Air Intake and Output 11/11/16 11/12/16 19:00 07:00 Intake Total 497.5 ml 735 ml Balance 497.5 ml 735 ml Intake Free Water 100 ml IV Total 467.5 ml 275 ml Tube Feeding 30 ml 360 ml # Voids 3 4 Laboratory Tests 11/12/16 08:15: White Blood Count 5.1, Red Blood Count 3.71L, Hemoglobin 12.4L, Hematocrit 37.0L , Mean Corpuscular Volume 100H, Mean Corpuscular Hemoglobin 33.4H, Mean Corpuscular Hemoglobin Concent 33.5, Red Cell Distribution Width 13.3, Platelet Count 223, Mean Platelet Volume 9.5, Neutrophils (%) (Auto) 72.2, Lymphocytes (% ) (Auto) 12.2L, Monocytes (%) (Auto) 10.8H, Eosinophils (%) (Auto) 3.9H, Basophils (%) (Auto) 1.0, Sodium Level 138, Potassium Level 4.1, Chloride Level 99, Carbon Dioxide Level 30, Anion Gap 9, Blood Urea Nitrogen 11, Creatinine 0.5L, Estimat Glomerular Filtration Rate , Glucose Level 108H, Calcium Level 9.6 , Phosphorus Level 3.1, Magnesium Level 1.9, Total Bilirubin 0.4, Aspartate Amino Transf (AST/SGOT) 14, Alanine Aminotransferase (ALT/SGPT) 8, Alkaline Phosphatase 65, Total Protein 6.4L, Albumin 2.9L, Globulin 3.5, Albumin/ Globulin Ratio 0.8L, Vancomycin Level Trough 15.8H Height (Feet): 5 Height (Inches): 9.00 Weight (Pounds): 170 General Appearance: alert EENT: normal ENT inspection Neck: non-tender Cardiovascular: normal rate Respiratory/Chest: normal breath sounds Abdomen: soft Extremities: non-tender Edema: 1+ Leg (L), 1+ Leg (R) Edema: mild edema Neurologic: alert Skin: normal pigmentation Jax Alcaraz Nov 12, 2016 19:21
[2016-11-12] MEDS: Doxazosin 1mg Tab GT SCH (21:33)
--- NOTE | 2016-11-12 22:02 | Pulmonology Progress Note ---
Assessment/Plan Problems: (1) Respiratory insufficiency (2) Cellulitis (3) HTN (hypertension) (4) History of CVA (cerebrovascular accident) Assessment/Plan Assessment/Plan improving continue antibiotics biopsy results noted respiratory treatment titrate fio2 to sat of 92% Subjective ROS Limited/Unobtainable: Yes Respiratory: Reports: dyspnea at rest, dyspnea on exertion, productive cough, shortness of breath, sputum Neurologic: Reports: confusion, weakness Allergies: Coded Allergies: AUBREY INHIBITORS (Verified Allergy, Unknown, ANGIOEDEMA, 09/17/12) Objective Last 24 Hour Vital Signs Date Time Temp Pulse Resp B/P Pulse Ox O2 Delivery O2 Flow Rate FiO2 11/12/16 21:00 62 111/64 11/12/16 20:00 97.3 62 20 111/64 93 Room Air 11/12/16 16:00 98.4 60 18 107/66 95 Room Air 11/12/16 12:02 97.1 60 18 107/65 95 Room Air 11/12/16 09:50 66 130/81 11/12/16 09:49 66 130/81 11/12/16 09:43 130/81 11/12/16 08:00 97.7 66 18 95/64 98 Room Air 11/12/16 04:00 96.7 70 17 137/71 96 Room Air 11/12/16 00:34 98.4 65 19 108/61 93 Room Air 11/11/16 22:48 63 89/60 Room Air 11/11/16 22:48 63 89/60 Intake and Output 11/11/16 11/12/16 19:00 07:00 Intake Total 497.5 ml 735 ml Balance 497.5 ml 735 ml Intake Free Water 100 ml IV Total 467.5 ml 275 ml Tube Feeding 30 ml 360 ml # Voids 3 4 General Appearance: no acute distress HEENT: normocephalic, atraumatic, PERRL Respiratory/Chest: chest wall non-tender, decreased breath sounds, accessory muscle use, rhonchi Cardiovascular: normal peripheral pulses, normal rate, regular rhythm, no JVD Abdomen: normal bowel sounds, soft, non tender, no organomegaly Genitourinary: normal external genitalia Extremities: no cyanosis Skin: rash, lesions Neurologic/Psychiatric: responsive, abnormal CN, disoriented, depressed affect Microbiology Date/Time Source Procedure Growth Status 11/10/16 14:15 Blood Blood Culture - Preliminary NO GROWTH AFTER 24 HOURS Resulted 11/10/16 14:15 Blood Blood Culture - Preliminary NO GROWTH AFTER 24 HOURS Resulted Laboratory Tests 11/12/16 08:15: White Blood Count 5.1, Red Blood Count 3.71L, Hemoglobin 12.4L, Hematocrit 37.0L , Mean Corpuscular Volume 100H, Mean Corpuscular Hemoglobin 33.4H, Mean Corpuscular Hemoglobin Concent 33.5, Red Cell Distribution Width 13.3, Platelet Count 223, Mean Platelet Volume 9.5, Neutrophils (%) (Auto) 72.2, Lymphocytes (% ) (Auto) 12.2L, Monocytes (%) (Auto) 10.8H, Eosinophils (%) (Auto) 3.9H, Basophils (%) (Auto) 1.0, Sodium Level 138, Potassium Level 4.1, Chloride Level 99, Carbon Dioxide Level 30, Anion Gap 9, Blood Urea Nitrogen 11, Creatinine 0.5L, Estimat Glomerular Filtration Rate , Glucose Level 108H, Calcium Level 9.6 , Phosphorus Level 3.1, Magnesium Level 1.9, Total Bilirubin 0.4, Aspartate Amino Transf (AST/SGOT) 14, Alanine Aminotransferase (ALT/SGPT) 8, Alkaline Phosphatase 65, Total Protein 6.4L, Albumin 2.9L, Globulin 3.5, Albumin/ Globulin Ratio 0.8L, Vancomycin Level Trough 15.8H Current Medications Medications (Trade) Dose Ordered Sig/Yousuf Route PRN Reason Start Time Stop Time Status Last Admin Dose Admin Acetaminophen (Tylenol) 650 mg Q4H PRN ORAL fever 11/12/16 03:34 12/12/16 03:33 Al Hydroxide/Mg Hydroxide (Mylanta II) 30 ml Q6H PRN ORAL dyspepsia 11/12/16 03:34 12/12/16 03:33 Amiodarone HCl (Cordarone) 100 mg DAILY GT 11/12/16 09:00 12/12/16 08:59 11/12/16 09:50 Amlodipine Besylate (Norvasc) 5 mg DAILY GT 11/12/16 09:00 12/12/16 08:59 11/12/16 09:50 Apixaban (Eliquis) 2.5 mg Q12HR ORAL 11/12/16 09:00 12/12/16 08:59 11/12/16 21:34 Bupropion HCl (Wellbutrin) 75 mg Q12HR ORAL 11/12/16 09:00 12/12/16 08:59 11/12/16 21:33 Dextrose (Dextrose 50%) STAT PRN IV Hypoglycemia 11/12/16 03:35 12/12/16 03:34 Doxazosin Mesylate (Cardura) 2 mg BEDTIME GT 11/12/16 21:00 12/12/16 20:59 11/12/16 21:33 Finasteride (Proscar) 5 mg DAILY GT 11/12/16 09:00 12/12/16 08:59 11/12/16 09:50 Insulin Aspart (NovoLOG) BEFORE MEALS AND HS SUBQ 11/12/16 06:30 12/12/16 06:29 11/12/16 11:43 Lorazepam (Ativan 2mg/ml 1ml) 0.5 mg Q4H PRN IV For Anxiety 11/12/16 03:37 11/19/16 03:36 Metoprolol Tartrate (Lopressor) 12.5 mg Q12H GT 11/12/16 09:00 12/12/16 08:59 11/12/16 09:49 Morphine Sulfate (Morphine Sulfate) 1 mg Q4H PRN IVP For Pain 11/12/16 03:30 11/19/16 03:29 Ondansetron HCl (Zofran) 4 mg Q6H PRN IVP Nausea & Vomiting 11/12/16 03:38 12/12/16 03:37 Piperacillin Sod/ Tazobactam Sod 3.375 gm/Dextrose 110 ml @ 27.5 mls/hr Q8HR IVPB 11/12/16 06:00 11/19/16 05:59 11/12/16 13:39 Polyethylene Glycol (Miralax) 17 gm HSPRN PRN GT Constipation 11/12/16 03:39 12/12/16 03:38 Valproic Acid (Depakene) 250 mg DAILY GT 11/12/16 09:00 12/12/16 08:59 11/12/16 09:49 Vancomycin HCl (Vanco rx to dose) 1 ea DAILY PRN MISC . 11/12/16 09:00 12/12/16 08:59 Vancomycin HCl/ Dextrose (Vancomycin/D5W) 275 ml @ 183.708 mls/hr Q12HR IVPB 11/12/16 09:00 11/17/16 08:59 11/12/16 21:34 Zolpidem Tartrate (Ambien) 5 mg HSPRN PRN ORAL Insomnia 11/12/16 03:34 12/12/16 03:33 MARY SELF Nov 12, 2016 22:02
[2016-11-13] VITALS: BP 106/66
[2016-11-13 00:19] LABS: HEMOGLOBIN A1C 5.2 % (< 6.0)
[2016-11-13 04:00] VITALS: BP 101/61
[2016-11-13] MEDS: Piperacillin/Tazobactam 3.375 GM in D5W 110 ML IVPB SCH ×2 (06:09→14:22)
[2016-11-13] MEDS: NovoLOG Insulin Flexpen SUBQ SCH ×4 (06:15→21:00)
[2016-11-13 08:00] VITALS: BP 111/63
[2016-11-13] MEDS: Valproic Acid 250mg/5ml Liquid GT SCH (08:47)
[2016-11-13] MEDS: BuPROPion 75mg Tab ORAL SCH ×2 (08:48→20:59)
[2016-11-13] MEDS: Vancomycin 1 GM in D5W 275 ML IVPB SCH ×2 (08:48→21:00)
[2016-11-13] MEDS: Amiodarone 200mg tab GT SCH (08:48)
[2016-11-13] MEDS: Eliquis 2.5mg tablet ORAL SCH ×2 (09:00→20:59)
[2016-11-13] MEDS: Metoprolol Tartrate 12.5mg TAB GT SCH ×2 (09:00→21:00)
--- NOTE | 2016-11-13 10:39 | General Progress Note ---
Progress Note Progress Note ENT S: facial swelling is reduced a little per my observation and the nurse Yue. O: Left face, no soft area to aspirate A: Facial sweling is a bit reduced, not sig. P: Will order new CT of sinuses, will include face, to use for planning next step-Surgical I/D, aspiration, continue only on antibiotics as is. Pt has signed consent for I/D. CONI MONREAL Nov 13, 2016 10:39
[2016-11-13 12:00] VITALS: BP 130/80
--- NOTE | 2016-11-13 12:01 | Diagnostic Imaging Report ---
Indications: Facial pain and swelling Technique: Continuous helical CT imaging of the face was performed with automatic exposure control on a Siemens sensation [address] scanner. Axial and coronal images were reconstructed at 3 mm slice thickness. CTDI volume(s): 28.2 mGy Total DLP: 722 mGy-cm Findings: Comparison: Contrast-enhanced CT scan of the neck 11/10/16 Lack of IV contrast limits evaluation. Left malar and mucosal soft tissues remain asymmetrically swollen with reticulated increased attenuation overlying skin thickening. No discrete mass, gas or fluid collection identified. Subtotal opacification of left maxillary sinus again noted. Opacification of bilateral mastoid air cells again noted. Remainder visualized paranasal sinuses, bilateral mastoid air cells clear. No osseous fracture or lytic destruction. Orbital anatomy intact bilaterally. Remaining superficial soft tissues unremarkable. IMPRESSION: Stable left facial soft tissue swelling, nonspecific. No evidence of abscess. Evaluation limited by lack of IV contrast, however. Stable left maxillary sinus, bilateral mastoid disease This correlates with [facility] preliminary report.
[2016-11-13 16:00] VITALS: BP 117/71
--- NOTE | 2016-11-13 16:03 | Diagnostic Imaging Report ---
Indications: Multiple right thyroid nodules Technique: Procedure, indications, risks, alternatives were explained to the patient, who understands and gives written consent to proceed. Thyroid glands are sonographically. Overlying skin was sterilely prepped and draped in usual fashion. Skin and subcutaneous soft tissues infiltrated with 1% lidocaine and sodium bicarbonate. A 25-gauge hypodermic needle advanced percutaneously under direct sonographic guidance into the dominant nodule in lower pole of right thyroid lobe. Aspirate obtained, submitted to pathologist, present at time of this procedure. 4 such passes made. Followup imaging performed. Puncture site was then bandaged. Patient tolerated procedure well without immediate complications and was returned to his room in stable condition. Findings: Comparison: Thyroid ultrasound 11/11/16 Intraprocedural imaging demonstrates aspiration needle tip within the dominant solid nodule in the lower pole of the right thyroid lobe on each pass. Post procedure imaging demonstrates no evidence of hematoma formation or other acute abnormality. IMPRESSION: Ultrasound-guided percutaneous fine-needle aspiration of dominant nodule in right thyroid lobe, pathology results pending
--- NOTE | 2016-11-13 16:58 | General Progress Note ---
Assessment/Plan Problem List: (1) History of CVA (cerebrovascular accident) ICD Codes: Z86.73 - History of CVA (cerebrovascular accident) SNOMED: 882037677 (2) History of respiratory failure ICD Codes: Z87.09 - History of respiratory failure SNOMED: 513197316 (3) Dysphagia ICD Codes: R13.10 - Dysphagia SNOMED: 39180334 (4) PEG (percutaneous endoscopic gastrostomy) adjustment/replacement/removal ICD Codes: Z43.1 - Encounter for attention to gastrostomy SNOMED: 718209294 (5) Cellulitis and abscess of face ICD Codes: L03.211 - Cellulitis of face; L02.01 - Cutaneous abscess of face SNOMED: 628942118 (6) Swelling of left side of face ICD Codes: R22.0 - Localized swelling, mass and lump, head SNOMED: 507627056 (7) Diabetes ICD Codes: E11.9 - Diabetes SNOMED: 68246098 (8) HTN (hypertension) ICD Codes: I10 - HTN (hypertension) SNOMED: 71575094 (9) Sepsis ICD Codes: A41.9 - Sepsis SNOMED: 47918101 (10) Thyroid mass of unclear etiology ICD Codes: E07.89 - Other specified disorders of thyroid SNOMED: 897094883 Status: progressing Assessment/Plan afebrile vitals stable fasical cellulitis cant obtain consent for fna abx per id celluitis is improving Subjective ROS Limited/Unobtainable: Yes Allergies: Coded Allergies: AUBREY INHIBITORS (Verified Allergy, Unknown, ANGIOEDEMA, 09/17/12) Objective Last 24 Hour Vital Signs Date Time Temp Pulse Resp B/P Pulse Ox O2 Delivery O2 Flow Rate FiO2 11/13/16 16:00 97.7 70 17 117/71 95 Room Air 11/13/16 12:00 97.9 74 19 130/80 97 Room Air 11/13/16 09:00 71 111/63 11/13/16 09:00 71 111/63 11/13/16 08:00 97.6 71 19 111/63 97 11/13/16 04:00 97.6 66 18 101/61 96 Room Air 11/13/16 00:00 96.6 63 18 106/66 93 Room Air 11/12/16 21:00 62 111/64 11/12/16 20:00 97.3 62 20 111/64 93 Room Air Intake and Output 11/12/16 11/13/16 19:00 07:00 Intake Total 525 ml 915.000 ml Output Total 550 ml Balance 525 ml 365.000 ml Intake Free Water 100 ml 200 ml IV Total 275 ml 385.000 ml Tube Feeding 150 ml 330 ml Output Urine Total 550 ml # Voids 4 Height (Feet): 5 Height (Inches): 9.00 Weight (Pounds): 170 Cardiovascular: normal rate Respiratory/Chest: lungs clear Abdomen: soft Laina Pereira MD Nov 13, 2016 16:58
--- NOTE | 2016-11-13 17:19 | Pulmonology Progress Note ---
Assessment/Plan Problems: (1) Respiratory insufficiency (2) Cellulitis (3) HTN (hypertension) (4) History of CVA (cerebrovascular accident) Assessment/Plan Assessment/Plan improving continue antibiotics biopsy results noted respiratory treatment titrate fio2 to sat of 92% Subjective ROS Limited/Unobtainable: Yes Respiratory: Reports: dyspnea at rest, dyspnea on exertion, pleuritic pain, productive cough, shortness of breath, sputum, wheezing Allergies: Coded Allergies: AUBREY INHIBITORS (Verified Allergy, Unknown, ANGIOEDEMA, 09/17/12) Objective Last 24 Hour Vital Signs Date Time Temp Pulse Resp B/P Pulse Ox O2 Delivery O2 Flow Rate FiO2 11/13/16 16:00 97.7 70 17 117/71 95 Room Air 11/13/16 12:00 97.9 74 19 130/80 97 Room Air 11/13/16 09:00 71 111/63 11/13/16 09:00 71 111/63 11/13/16 08:00 97.6 71 19 111/63 97 11/13/16 04:00 97.6 66 18 101/61 96 Room Air 11/13/16 00:00 96.6 63 18 106/66 93 Room Air 11/12/16 21:00 62 111/64 11/12/16 20:00 97.3 62 20 111/64 93 Room Air Intake and Output 11/12/16 11/13/16 19:00 07:00 Intake Total 525 ml 915.000 ml Output Total 550 ml Balance 525 ml 365.000 ml Intake Free Water 100 ml 200 ml IV Total 275 ml 385.000 ml Tube Feeding 150 ml 330 ml Output Urine Total 550 ml # Voids 4 General Appearance: no acute distress HEENT: normocephalic, atraumatic, mucous membranes moist Respiratory/Chest: chest wall non-tender, decreased breath sounds, accessory muscle use, rhonchi Cardiovascular: normal peripheral pulses, normal rate, regular rhythm, no JVD Abdomen: normal bowel sounds, soft, non tender, no organomegaly Genitourinary: normal external genitalia Skin: rash, lesions, ulcers 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, responsive, abnormal CN, disoriented, aphasia Current Medications Medications (Trade) Dose Ordered Sig/Yousuf Route PRN Reason Start Time Stop Time Status Last Admin Dose Admin Acetaminophen (Tylenol) 650 mg Q4H PRN ORAL fever 11/12/16 03:34 12/12/16 03:33 Al Hydroxide/Mg Hydroxide (Mylanta II) 30 ml Q6H PRN ORAL dyspepsia 11/12/16 03:34 12/12/16 03:33 Amiodarone HCl (Cordarone) 100 mg DAILY GT 11/12/16 09:00 12/12/16 08:59 11/13/16 08:48 Amlodipine Besylate (Norvasc) 5 mg DAILY GT 11/12/16 09:00 12/12/16 08:59 11/12/16 09:50 Apixaban (Eliquis) 2.5 mg Q12HR ORAL 11/12/16 09:00 12/12/16 08:59 11/12/16 21:34 Bupropion HCl (Wellbutrin) 75 mg Q12HR ORAL 11/12/16 09:00 12/12/16 08:59 11/13/16 08:48 Dextrose (Dextrose 50%) STAT PRN IV Hypoglycemia 11/12/16 03:35 12/12/16 03:34 Doxazosin Mesylate (Cardura) 2 mg BEDTIME GT 11/12/16 21:00 12/12/16 20:59 11/12/16 21:33 Finasteride (Proscar) 5 mg DAILY GT 11/12/16 09:00 12/12/16 08:59 11/13/16 08:48 Insulin Aspart (NovoLOG) BEFORE MEALS AND HS SUBQ 11/12/16 06:30 12/12/16 06:29 11/13/16 06:15 Lorazepam (Ativan 2mg/ml 1ml) 0.5 mg Q4H PRN IV For Anxiety 11/12/16 03:37 11/19/16 03:36 Metoprolol Tartrate (Lopressor) 12.5 mg Q12H GT 11/12/16 09:00 12/12/16 08:59 11/12/16 09:49 Morphine Sulfate (Morphine Sulfate) 1 mg Q4H PRN IVP For Pain 11/12/16 03:30 11/19/16 03:29 Ondansetron HCl (Zofran) 4 mg Q6H PRN IVP Nausea & Vomiting 11/12/16 03:38 12/12/16 03:37 Piperacillin Sod/ Tazobactam Sod 3.375 gm/Dextrose 110 ml @ 27.5 mls/hr Q8HR IVPB 11/12/16 06:00 11/19/16 05:59 11/13/16 14:22 Polyethylene Glycol (Miralax) 17 gm HSPRN PRN GT Constipation 11/12/16 03:39 12/12/16 03:38 Valproic Acid (Depakene) 250 mg DAILY GT 11/12/16 09:00 12/12/16 08:59 11/13/16 08:47 Vancomycin HCl (Vanco rx to dose) 1 ea DAILY PRN MISC . 11/12/16 09:00 12/12/16 08:59 Vancomycin HCl/ Dextrose (Vancomycin/D5W) 275 ml @ 183.708 mls/hr Q12HR IVPB 11/12/16 09:00 11/17/16 08:59 11/13/16 08:48 Zolpidem Tartrate (Ambien) 5 mg HSPRN PRN ORAL Insomnia 11/12/16 03:34 12/12/16 03:33 MARY SELF Nov 13, 2016 17:19
[2016-11-13] MEDS ORDERED: Sterile Water Irrig 1000ml IRRIG ONE (17:24)
[2016-11-13] MEDS ORDERED: NS 275ml ONE (17:24)
--- NOTE | 2016-11-13 18:49 | Infectious Diseases Prog Note ---
Assessment/Plan Problems: (1) Cellulitis and abscess of face Assessment & Plan: improving on zosyn and vancomycin empirically , CT scan of the sinuses today showed soft tissue swelling, and no abscess, will order an MRI of the head with contrast to rule out any soft tissue abscess or infiltration, D/W ENT (2) Cellulitis Assessment & Plan: of the neck , CT scan showed cellulitis and right lower thyroids pole mass , continue zosyn and vancomycin , await culture results (3) Sepsis Assessment & Plan: due to the above, await blood culture, continue wide spectrum antibiotics (4) Diabetes Assessment & Plan: recommend tight glycemic control to keep blood glucose between 80-120 (5) HTN (hypertension) Assessment & Plan: continue meds to keep SBP <140 (6) Thyroid mass of unclear etiology Assessment & Plan: had US and FNA biopsy , pathology is pending , endocrinology is following Subjective Constitutional: Reports: no symptoms HEENT: Reports: other - left facial swelling Respiratory: Reports: no symptoms Breasts: Reports: no symptoms Cardiovascular: Reports: no symptoms Gastrointestinal/Abdominal: Reports: no symptoms Genitourinary: Reports: no symptoms Neurologic: Reports: no symptoms Psychiatric: Reports: no symptoms Skin: Reports: other - redness on the left side Allergies: Coded Allergies: AUBREY INHIBITORS (Verified Allergy, Unknown, ANGIOEDEMA, 09/17/12) Objective Vital Signs Last 24 Hour Vital Signs Date Time Temp Pulse Resp B/P Pulse Ox O2 Delivery O2 Flow Rate FiO2 11/13/16 16:00 97.7 70 17 117/71 95 Room Air 11/13/16 12:00 97.9 74 19 130/80 97 Room Air 11/13/16 09:00 71 111/63 11/13/16 09:00 71 111/63 11/13/16 08:00 97.6 71 19 111/63 97 11/13/16 04:00 97.6 66 18 101/61 96 Room Air 11/13/16 00:00 96.6 63 18 106/66 93 Room Air 11/12/16 21:00 62 111/64 11/12/16 20:00 97.3 62 20 111/64 93 Room Air Height (Feet): 5 Height (Inches): 9.00 Weight (Pounds): 170 General Appearance: WD/WN, no acute distress HEENT: atraumatic, anicteric, no JVD, other - left facial swelling, and redness Respiratory/Chest: chest wall non-tender, lungs clear, normal breath sounds, no respiratory distress, no accessory muscle use Cardiovascular: normal rate, regular rhythm, no gallop/murmur Abdomen: normal bowel sounds, soft, non tender, no organomegaly, non distended , no mass, no scars Extremities: no cyanosis, no clubbing Skin: no rash, no lesions, no ulcers Current Medications Medications (Trade) Dose Ordered Sig/Yousuf Route PRN Reason Start Time Stop Time Status Last Admin Dose Admin Acetaminophen (Tylenol) 650 mg Q4H PRN ORAL fever 11/12/16 03:34 12/12/16 03:33 Al Hydroxide/Mg Hydroxide (Mylanta II) 30 ml Q6H PRN ORAL dyspepsia 11/12/16 03:34 12/12/16 03:33 Amiodarone HCl (Cordarone) 100 mg DAILY GT 11/12/16 09:00 12/12/16 08:59 11/13/16 08:48 Amlodipine Besylate (Norvasc) 5 mg DAILY GT 11/12/16 09:00 12/12/16 08:59 11/12/16 09:50 Apixaban (Eliquis) 2.5 mg Q12HR ORAL 11/12/16 09:00 12/12/16 08:59 11/12/16 21:34 Bupropion HCl (Wellbutrin) 75 mg Q12HR ORAL 11/12/16 09:00 12/12/16 08:59 11/13/16 08:48 Dextrose (Dextrose 50%) STAT PRN IV Hypoglycemia 11/12/16 03:35 12/12/16 03:34 Doxazosin Mesylate (Cardura) 2 mg BEDTIME GT 11/12/16 21:00 12/12/16 20:59 11/12/16 21:33 Finasteride (Proscar) 5 mg DAILY GT 11/12/16 09:00 12/12/16 08:59 11/13/16 08:48 Insulin Aspart (NovoLOG) BEFORE MEALS AND HS SUBQ 11/12/16 06:30 12/12/16 06:29 11/13/16 06:15 Lorazepam (Ativan 2mg/ml 1ml) 0.5 mg Q4H PRN IV For Anxiety 11/12/16 03:37 11/19/16 03:36 Metoprolol Tartrate (Lopressor) 12.5 mg Q12H GT 11/12/16 09:00 12/12/16 08:59 11/12/16 09:49 Morphine Sulfate (Morphine Sulfate) 1 mg Q4H PRN IVP For Pain 11/12/16 03:30 11/19/16 03:29 Ondansetron HCl (Zofran) 4 mg Q6H PRN IVP Nausea & Vomiting 11/12/16 03:38 12/12/16 03:37 Piperacillin Sod/ Tazobactam Sod 3.375 gm/Dextrose 110 ml @ 27.5 mls/hr Q8HR IVPB 11/12/16 06:00 11/19/16 05:59 11/13/16 14:22 Polyethylene Glycol (Miralax) 17 gm HSPRN PRN GT Constipation 11/12/16 03:39 12/12/16 03:38 Valproic Acid (Depakene) 250 mg DAILY GT 11/12/16 09:00 12/12/16 08:59 11/13/16 08:47 Vancomycin HCl (Vanco rx to dose) 1 ea DAILY PRN MISC . 11/12/16 09:00 12/12/16 08:59 Vancomycin HCl/ Dextrose (Vancomycin/D5W) 275 ml @ 183.708 mls/hr Q12HR IVPB 11/12/16 09:00 11/17/16 08:59 11/13/16 08:48 Zolpidem Tartrate (Ambien) 5 mg HSPRN PRN ORAL Insomnia 11/12/16 03:34 12/12/16 03:33 Aida Frederick M.D. Nov 13, 2016 18:49
[2016-11-13 20:00] VITALS: BP 111/71
[2016-11-13] MEDS: Doxazosin 1mg Tab GT SCH (20:59)
--- NOTE | 2016-11-13 21:07 | General Progress Note ---
Assessment/Plan Assessment/Plan ASSESSMENT: 1. Left-sided facial erythema, cellulitis, is on antibiotics. Continue abx. Have reviewed imaging of thyroid, does not appear change in nodules. S/p bx and now pending MRI to r/o malgiancy 2. Anemia secondary to chronic disease. 3. Right lower lobe thyroid nodule 19 x 11mm, s/p biopsy 4. Diabetes mellitus. 5. Atrial fibrillation. 6. Cellulitis of the face. 7. Diabetes mellitus. 8. Hypertension. 9. Psychiatric history. 10. Afib on eliquis RECOMMENDATIONS: 1. Monitor counts. 2. Transfuse to hemoglobin >7 3. MRI neck pending 4. Followup on ID, endo, Pulmonary recs, ENT recs 5. s/p biopsy of right thyroid nodule mass. 6. DVT ppx with eliquis. 7. GI ppx as needed. 8. Pain control. 9. Antibiotics as needed. 10. staff Thank you, Jax Alcaraz MD Subjective Constitutional: Reports: no symptoms HEENT: Reports: no symptoms Cardiovascular: Reports: no symptoms Respiratory: Reports: no symptoms Gastrointestinal/Abdominal: Reports: no symptoms, poor appetite Genitourinary: Reports: no symptoms Neurologic/Psychiatric: Reports: no symptoms Endocrine: Reports: no symptoms Hematologic/Lymphatic: Reports: anemia Allergies: Coded Allergies: AUBREY INHIBITORS (Verified Allergy, Unknown, ANGIOEDEMA, 09/17/12) Subjective stable, no bleeding reported, no night sweats, face appears better Objective Last 24 Hour Vital Signs Date Time Temp Pulse Resp B/P Pulse Ox O2 Delivery O2 Flow Rate FiO2 11/13/16 21:00 74 111/71 11/13/16 20:00 98.6 74 18 111/71 94 Room Air 11/13/16 16:00 97.7 70 17 117/71 95 Room Air 11/13/16 12:00 97.9 74 19 130/80 97 Room Air 11/13/16 09:00 71 111/63 11/13/16 09:00 71 111/63 11/13/16 08:00 97.6 71 19 111/63 97 11/13/16 04:00 97.6 66 18 101/61 96 Room Air 11/13/16 00:00 96.6 63 18 106/66 93 Room Air Intake and Output 11/12/16 11/13/16 19:00 07:00 Intake Total 525 ml 915.000 ml Output Total 550 ml Balance 525 ml 365.000 ml Intake Free Water 100 ml 200 ml IV Total 275 ml 385.000 ml Tube Feeding 150 ml 330 ml Output Urine Total 550 ml # Voids 4 Height (Feet): 5 Height (Inches): 9.00 Weight (Pounds): 170 General Appearance: alert EENT: TMs normal Neck: normal alignment Cardiovascular: regular rhythm Respiratory/Chest: lungs clear Abdomen: non tender Genitourinary/Rectal: normal prostate exam Extremities: non-tender Edema: no edema noted Leg (L), no edema noted Leg (R) Neurologic: alert - face swelling now down Jax Alcaraz Nov 13, 2016 21:07
[2016-11-14] VITALS: BP 104/63
[2016-11-14] MEDS: Piperacillin/Tazobactam 3.375 GM in D5W 110 ML IVPB SCH ×4 (00:27→23:04)
[2016-11-14 04:00] VITALS: BP 112/66
[2016-11-14] MEDS: NovoLOG Insulin Flexpen SUBQ SCH ×4 (06:30→19:08)
[2016-11-14 08:19] LABS: FREE T3 1.4 pg/mL (2.3-4.2)
[2016-11-14 08:20] VITALS: BP 111/74
[2016-11-14] MEDS: Valproic Acid 250mg/5ml Liquid GT SCH (08:43)
[2016-11-14] MEDS: Amiodarone 200mg tab GT SCH (08:43)
[2016-11-14] MEDS: Eliquis 2.5mg tablet ORAL SCH ×2 (08:44→21:29)
[2016-11-14] MEDS: Metoprolol Tartrate 12.5mg TAB GT SCH ×2 (08:44→21:30)
[2016-11-14] MEDS: BuPROPion 75mg Tab ORAL SCH (08:44)
[2016-11-14] MEDS: Vancomycin 1 GM in D5W 275 ML IVPB SCH ×2 (10:37→21:29)
[2016-11-14 11:47] VITALS: BP 114/70
--- NOTE | 2016-11-14 13:17 | History and Physical Report ---
DATE OF ADMISSION: 11/10/2016 REASON FOR ADMISSION: Cellulitis of the left face. The patient also has a history of ENT cancer, dysphagia. We need to make sure also the patient does not have recurrence of ENT cancer versus thyroid cancer per Dr. Alcaraz and has been following as an outpatient. The patient denies any pain. Denies any shortness of breath. Denies any nausea, vomiting, or diarrhea. No fever or chills. PAST MEDICAL HISTORY: Arrhythmia, hypertension, history of ENT cancer, NIDDM, hyperkalemia, mood disorder, psychosis, GERD, BPH. PAST SURGICAL HISTORY: ENT surgery, history of G-tube. ALLERGIES: AUBREY inhibitors. MEDICATIONS: Eliquis, amiodarone, clonidine, doxazosin, finasteride, insulin, and metoprolol. SOCIAL HISTORY: The patient has a history of smoking. No history of alcohol or intravenous drug use. Lives in a [facility]. REVIEW OF SYSTEMS: HEENT: Denies headaches. Respiratory: Denies shortness of breath. Denies cough. Cardiovascular: Denies chest pain. Gastrointestinal: Denies nausea, vomiting, or diarrhea. Extremities: Denies pain. Central Nervous System: Denies change in vision or speech pattern but the patient is a very poor historian. PHYSICAL EXAMINATION: VITAL SIGNS: Temperature 97.7 degrees, pulse 61, and blood pressure 97/63. HEENT: PERRLA. There is facial edema and facial erythema. NECK: Supple. No lymphadenopathy. CHEST: Clear to auscultation. ABDOMEN: Soft, nondistended. Positive bowel sounds. No organomegaly. EXTREMITIES: A 1+ edema. Reflexes are equal on both sides. The patient is ambulatory. LABORATORY AND DIAGNOSTIC DATA: WBC of 7.6, hemoglobin of 12.9, and platelets 198,000. Sodium 138, potassium 4.6, BUN 22, creatinine 0.7, and glucose 97. ASSESSMENT AND PLAN: Left facial cellulitis, rule out recurrence of ENT cancer versus thyroid cancer per Dr. Alcaraz who follows him as an outpatient. I have consulted , , Dr. Powell, and Dr. Huber and Dr. Chairez and Dr. Garcia for the above-mentioned diagnoses and treatment. Ali Elizabeth Pereira DR: Carlos JOB#: [id number] CC:
--- NOTE | 2016-11-14 13:31 | General Progress Note ---
Assessment/Plan Problem List: (1) History of CVA (cerebrovascular accident) ICD Codes: Z86.73 - History of CVA (cerebrovascular accident) SNOMED: 210217895 (2) History of respiratory failure ICD Codes: Z87.09 - History of respiratory failure SNOMED: 597464098 (3) Dysphagia ICD Codes: R13.10 - Dysphagia SNOMED: 01253390 (4) PEG (percutaneous endoscopic gastrostomy) adjustment/replacement/removal ICD Codes: Z43.1 - Encounter for attention to gastrostomy SNOMED: 877726952 (5) Cellulitis and abscess of face ICD Codes: L03.211 - Cellulitis of face; L02.01 - Cutaneous abscess of face SNOMED: 952325684 (6) Swelling of left side of face ICD Codes: R22.0 - Localized swelling, mass and lump, head SNOMED: 740834617 (7) Diabetes ICD Codes: E11.9 - Diabetes SNOMED: 16372033 (8) HTN (hypertension) ICD Codes: I10 - HTN (hypertension) SNOMED: 58824581 (9) Sepsis ICD Codes: A41.9 - Sepsis SNOMED: 35797530 (10) Thyroid mass of unclear etiology ICD Codes: E07.89 - Other specified disorders of thyroid SNOMED: 465532502 Status: progressing Assessment/Plan afebrile facial celluitis cant get consent for fna dm celluitis is improving Subjective ROS Limited/Unobtainable: Yes Allergies: Coded Allergies: AUBREY INHIBITORS (Verified Allergy, Unknown, ANGIOEDEMA, 09/17/12) Objective Last 24 Hour Vital Signs Date Time Temp Pulse Resp B/P Pulse Ox O2 Delivery O2 Flow Rate FiO2 11/14/16 12:49 72 114/70 11/14/16 11:47 98.2 72 20 114/70 96 Room Air 11/14/16 08:44 69 111/74 11/14/16 08:20 97.5 69 20 111/74 96 Room Air 11/14/16 04:00 97.3 66 18 112/66 94 Room Air 11/14/16 00:00 97.6 64 18 104/63 95 Room Air 11/13/16 21:00 74 111/71 11/13/16 20:00 98.6 74 18 111/71 94 Room Air 11/13/16 16:00 97.7 70 17 117/71 95 Room Air Intake and Output 11/13/16 11/14/16 19:00 07:00 Intake Total 495.000 ml 825.000 ml Balance 495.000 ml 825.000 ml Intake Free Water 200 ml IV Total 495.000 ml 385.000 ml Tube Feeding 240 ml # Voids 3 3 Laboratory Tests 11/14/16 06:25: Free Thyroxine 0.55L, Free Triiodothyronine 1.4L Height (Feet): 5 Height (Inches): 9.00 Weight (Pounds): 170 EENT: PERRL/EOMI Neck: supple Cardiovascular: normal rate Respiratory/Chest: lungs clear Abdomen: soft Laina Pereira MD Nov 14, 2016 13:31
--- NOTE | 2016-11-14 15:29 | General Progress Note ---
Assessment/Plan Assessment/Plan ASSESSMENT: 1. Left-sided facial erythema, cellulitis, is on antibiotics. Continue abx. Have reviewed imaging of thyroid, does not appear change in nodules. S/p bx and now pending MRI to r/o malgiancy 2. Anemia secondary to chronic disease. 3. Right lower lobe thyroid nodule 19 x 11mm, s/p biopsy 4. Diabetes mellitus. 5. Atrial fibrillation. 6. Cellulitis of the face. 7. Diabetes mellitus. 8. Hypertension. 9. Psychiatric history. 10. Afib on eliquis RECOMMENDATIONS: 1. Monitor counts. 2. Transfuse to hemoglobin >7 3. MRI query head pending 4. Followup on ID, endo, Pulmonary recs, ENT recs 5. s/p biopsy of right thyroid nodule mass. 6. DVT ppx with eliquis. 7. GI ppx as needed. 8. Pain control. 9. Antibiotics as needed. 10. staff Thank you, Jax Alcaraz MD Subjective Constitutional: Reports: no symptoms HEENT: Reports: mouth pain Respiratory: Reports: no symptoms Gastrointestinal/Abdominal: Reports: poor appetite Genitourinary: Reports: no symptoms Neurologic/Psychiatric: Reports: no symptoms, other Hematologic/Lymphatic: Reports: anemia Allergies: Coded Allergies: AUBREY INHIBITORS (Verified Allergy, Unknown, ANGIOEDEMA, 09/17/12) Subjective stable, no bleeding reported, no night sweats, face better Objective Last 24 Hour Vital Signs Date Time Temp Pulse Resp B/P Pulse Ox O2 Delivery O2 Flow Rate FiO2 11/14/16 12:49 72 114/70 11/14/16 11:47 98.2 72 20 114/70 96 Room Air 11/14/16 08:44 69 111/74 11/14/16 08:20 97.5 69 20 111/74 96 Room Air 11/14/16 04:00 97.3 66 18 112/66 94 Room Air 11/14/16 00:00 97.6 64 18 104/63 95 Room Air 11/13/16 21:00 74 111/71 11/13/16 20:00 98.6 74 18 111/71 94 Room Air 11/13/16 16:00 97.7 70 17 117/71 95 Room Air Intake and Output 11/13/16 11/14/16 19:00 07:00 Intake Total 495.000 ml 825.000 ml Balance 495.000 ml 825.000 ml Intake Free Water 200 ml IV Total 495.000 ml 385.000 ml Tube Feeding 240 ml # Voids 3 3 Laboratory Tests 11/14/16 06:25: Free Thyroxine 0.55L, Free Triiodothyronine 1.4L Height (Feet): 5 Height (Inches): 9.00 Weight (Pounds): 170 General Appearance: alert EENT: normal ENT inspection Neck: supple Cardiovascular: normal rate Respiratory/Chest: normal breath sounds Abdomen: non tender Extremities: non-tender Edema: 1+ Leg (L), 1+ Leg (R) Neurologic: alert Skin: normal pigmentation Jax Alcaraz Nov 14, 2016 15:29
[2016-11-14 15:58] VITALS: BP 148/66
--- NOTE | 2016-11-14 17:59 | Infectious Diseases Prog Note ---
Assessment/Plan Problems: (1) Cellulitis and abscess of face Assessment & Plan: improving on zosyn and vancomycin empirically , CT scan of the sinuses showed soft tissue swelling, and no abscess, can't do an MRI of the head with contrast to rule out any soft tissue abscess or infiltration since he has pacemaker. (2) Cellulitis Assessment & Plan: of the neck , CT scan showed cellulitis and right lower thyroids pole mass , continue zosyn and vancomycin , await culture results (3) Sepsis Assessment & Plan: due to the above, await blood culture, continue wide spectrum antibiotics (4) Diabetes Assessment & Plan: recommend tight glycemic control to keep blood glucose between 80-120 (5) HTN (hypertension) Assessment & Plan: continue meds to keep SBP <140 (6) Thyroid mass of unclear etiology Assessment & Plan: had US and FNA biopsy , pathology is pending , endocrinology is following Subjective HEENT: Reports: other - left facial swelling, with mild redness. Respiratory: Denies: dry cough, no symptoms, other, productive cough, shortness of breath Breasts: Denies: discharge, no symptoms, other, swelling, tenderness Cardiovascular: Denies: chest pain, dyspnea on exertion, no symptoms, other, palpitations Gastrointestinal/Abdominal: Denies: bloating, blood in stool, constipation, diarrhea, nausea, no symptoms, other, vomiting Genitourinary: Denies: dysuria, frequency, hematuria, no symptoms, nocturia, other Neurologic: Denies: confusion, headache, no symptoms, numbness, other, weakness Psychiatric: Denies: anxiety, depression, no symptoms, other Skin: Denies: no symptoms, other, rash, ulcer Endocrine: Denies: feels cold, feels warm, no symptoms, other Allergies: Coded Allergies: AUBREY INHIBITORS (Verified Allergy, Unknown, ANGIOEDEMA, 09/17/12) All Systems: reviewed and negative except above Objective Vital Signs Last 24 Hour Vital Signs Date Time Temp Pulse Resp B/P Pulse Ox O2 Delivery O2 Flow Rate FiO2 11/14/16 15:58 98.2 64 20 148/66 93 Room Air 11/14/16 12:49 72 114/70 11/14/16 11:47 98.2 72 20 114/70 96 Room Air 11/14/16 08:44 69 111/74 11/14/16 08:20 97.5 69 20 111/74 96 Room Air 11/14/16 04:00 97.3 66 18 112/66 94 Room Air 11/14/16 00:00 97.6 64 18 104/63 95 Room Air 11/13/16 21:00 74 111/71 11/13/16 20:00 98.6 74 18 111/71 94 Room Air Height (Feet): 5 Height (Inches): 9.00 Weight (Pounds): 170 General Appearance: no acute distress, other - left facial swelling, with redness HEENT: normocephalic, atraumatic, anicteric, mucous membranes moist Respiratory/Chest: chest wall non-tender, lungs clear, normal breath sounds, no respiratory distress, no accessory muscle use Cardiovascular: normal peripheral pulses, normal rate, regular rhythm, no gallop/murmur, no JVD Abdomen: normal bowel sounds, no organomegaly, non distended, no mass, no scars Extremities: no cyanosis, no clubbing Skin: no rash, no lesions, no ulcers Laboratory Tests Test 11/14/16 06:25 Free Thyroxine 0.55 ng/dL (0.86-1.85) L Free Triiodothyronine 1.4 pg/mL (2.3-4.2) L Current Medications Medications (Trade) Dose Ordered Sig/Yousuf Route PRN Reason Start Time Stop Time Status Last Admin Dose Admin Acetaminophen (Tylenol) 650 mg Q4H PRN ORAL fever 11/12/16 03:34 12/12/16 03:33 Al Hydroxide/Mg Hydroxide (Mylanta II) 30 ml Q6H PRN GT dyspepsia 11/14/16 17:25 12/12/16 03:33 Amiodarone HCl (Cordarone) 100 mg DAILY GT 11/12/16 09:00 12/12/16 08:59 11/14/16 08:43 Amlodipine Besylate (Norvasc) 5 mg DAILY GT 11/12/16 09:00 12/12/16 08:59 11/14/16 12:49 Apixaban (Eliquis) 2.5 mg Q12HR ORAL 11/12/16 09:00 12/12/16 08:59 11/14/16 08:44 Bupropion HCl (Wellbutrin) 75 mg Q12HR GT 11/14/16 17:25 12/12/16 08:59 Dextrose (Dextrose 50%) STAT PRN IV Hypoglycemia 11/12/16 03:35 12/12/16 03:34 Doxazosin Mesylate (Cardura) 2 mg BEDTIME GT 11/12/16 21:00 12/12/16 20:59 11/13/16 20:59 Finasteride (Proscar) 5 mg DAILY GT 11/12/16 09:00 12/12/16 08:59 11/14/16 08:44 Insulin Aspart (NovoLOG) Q6HR SUBQ 11/14/16 18:00 12/14/16 17:59 Lorazepam (Ativan 2mg/ml 1ml) 0.5 mg Q4H PRN IV For Anxiety 11/12/16 03:37 11/19/16 03:36 Metoprolol Tartrate (Lopressor) 12.5 mg Q12H GT 11/12/16 09:00 12/12/16 08:59 11/14/16 08:44 Morphine Sulfate (Morphine Sulfate) 1 mg Q4H PRN IVP For Pain 11/12/16 03:30 11/19/16 03:29 Ondansetron HCl (Zofran) 4 mg Q6H PRN IVP Nausea & Vomiting 11/12/16 03:38 12/12/16 03:37 Piperacillin Sod/ Tazobactam Sod 3.375 gm/Dextrose 110 ml @ 27.5 mls/hr Q8HR IVPB 11/12/16 06:00 11/19/16 05:59 11/14/16 14:45 Polyethylene Glycol (Miralax) 17 gm HSPRN PRN GT Constipation 11/12/16 03:39 12/12/16 03:38 Valproic Acid (Depakene) 250 mg DAILY GT 11/12/16 09:00 12/12/16 08:59 11/14/16 08:43 Vancomycin HCl (Vanco rx to dose) 1 ea DAILY PRN MISC . 11/12/16 09:00 12/12/16 08:59 Vancomycin HCl/ Dextrose (Vancomycin/D5W) 275 ml @ 183.708 mls/hr Q12HR IVPB 11/12/16 09:00 11/17/16 08:59 11/14/16 10:37 Zolpidem Tartrate (Ambien) 5 mg HSPRN PRN GT Insomnia 11/14/16 17:24 12/12/16 03:33 Aida Frederick M.D. Nov 14, 2016 17:59
--- NOTE | 2016-11-14 18:00 | Pulmonology Progress Note ---
Assessment/Plan Assessment/Plan ASSESSMENT L facial cellulitis HTN respiratory insufficiency pacemaker dysphagia, G tube multiple thyroid nodules on the right DM A fib PLAN OF CARE MS floor abx, ID follows blood cx preliminary negatuve thyroid US - Multiple right thyroid nodules, largest in the lower pole and 2.5 cm long axis dimension. Appearance nonspecific, although lack of significant interval growth since CT scan of 2012 indicates this is most likely benign. CT neck - no change from [address] - Stable left facial soft tissue swelling, nonspecific. No evidence of abscess ENT input noted . US guided FNA of R thyroid nodule not done , no consent elevated TSH and low free T 4 and T3 start low dose Synthroid check thyroid panel in 1 month pain management BP management with CCB, BB and Cardura BS management with SS of insulin patient with chronic A fib: on BB and Amiodarone would recommend dc Amiodarone in lieu of thyroid problems consider cardio eval-per PMD discretion to decide to stop Amiodarone in lieu of thyroid problems a/coagulation with Eliquis O2 HHN prn currently on RA, stable pulse ox CXR no acute cardiopulmonary issues aspiration precautions, GT feeding Bowel regimen case discussed and evaluated by supervising physician Subjective Allergies: Coded Allergies: AUBREY INHIBITORS (Verified Allergy, Unknown, ANGIOEDEMA, 09/17/12) Subjective afebrile, no leukocytosis on RA sat stable, no signs of respiratory distress Objective Last 24 Hour Vital Signs Date Time Temp Pulse Resp B/P Pulse Ox O2 Delivery O2 Flow Rate FiO2 11/14/16 15:58 98.2 64 20 148/66 93 Room Air 11/14/16 12:49 72 114/70 11/14/16 11:47 98.2 72 20 114/70 96 Room Air 11/14/16 08:44 69 111/74 11/14/16 08:20 97.5 69 20 111/74 96 Room Air 11/14/16 04:00 97.3 66 18 112/66 94 Room Air 11/14/16 00:00 97.6 64 18 104/63 95 Room Air 11/13/16 21:00 74 111/71 11/13/16 20:00 98.6 74 18 111/71 94 Room Air Intake and Output 11/13/16 11/14/16 19:00 07:00 Intake Total 495.000 ml 825.000 ml Balance 495.000 ml 825.000 ml Intake Free Water 200 ml IV Total 495.000 ml 385.000 ml Tube Feeding 240 ml # Voids 3 3 General Appearance: no acute distress, other - awaake, alert, responsive, raspy voice HEENT: normocephalic, atraumatic, anicteric, other - left facial edema Respiratory/Chest: lungs clear, no respiratory distress, no accessory muscle use Cardiovascular: normal peripheral pulses, normal rate, no JVD, irregularly irregular Abdomen: soft, non tender, non distended, other - G tube Extremities: no edema, pedal pulses normal Neurologic/Psychiatric: alert, oriented x 3, responsive Musculoskeletal: normal muscle bulk Laboratory Tests 11/14/16 06:25: Free Thyroxine 0.55L, Free Triiodothyronine 1.4L Current Medications Medications (Trade) Dose Ordered Sig/Yousuf Route PRN Reason Start Time Stop Time Status Last Admin Dose Admin Acetaminophen (Tylenol) 650 mg Q4H PRN ORAL fever 11/12/16 03:34 12/12/16 03:33 Al Hydroxide/Mg Hydroxide (Mylanta II) 30 ml Q6H PRN GT dyspepsia 11/14/16 17:25 12/12/16 03:33 Amiodarone HCl (Cordarone) 100 mg DAILY GT 11/12/16 09:00 12/12/16 08:59 11/14/16 08:43 Amlodipine Besylate (Norvasc) 5 mg DAILY GT 11/12/16 09:00 12/12/16 08:59 11/14/16 12:49 Apixaban (Eliquis) 2.5 mg Q12HR ORAL 11/12/16 09:00 12/12/16 08:59 11/14/16 08:44 Bupropion HCl (Wellbutrin) 75 mg Q12HR GT 11/14/16 17:25 12/12/16 08:59 Dextrose (Dextrose 50%) STAT PRN IV Hypoglycemia 11/12/16 03:35 12/12/16 03:34 Doxazosin Mesylate (Cardura) 2 mg BEDTIME GT 11/12/16 21:00 12/12/16 20:59 11/13/16 20:59 Finasteride (Proscar) 5 mg DAILY GT 11/12/16 09:00 12/12/16 08:59 11/14/16 08:44 Insulin Aspart (NovoLOG) Q6HR SUBQ 11/14/16 18:00 12/14/16 17:59 Lorazepam (Ativan 2mg/ml 1ml) 0.5 mg Q4H PRN IV For Anxiety 11/12/16 03:37 11/19/16 03:36 Metoprolol Tartrate (Lopressor) 12.5 mg Q12H GT 11/12/16 09:00 12/12/16 08:59 11/14/16 08:44 Morphine Sulfate (Morphine Sulfate) 1 mg Q4H PRN IVP For Pain 11/12/16 03:30 11/19/16 03:29 Ondansetron HCl (Zofran) 4 mg Q6H PRN IVP Nausea & Vomiting 11/12/16 03:38 12/12/16 03:37 Piperacillin Sod/ Tazobactam Sod 3.375 gm/Dextrose 110 ml @ 27.5 mls/hr Q8HR IVPB 11/12/16 06:00 11/19/16 05:59 11/14/16 14:45 Polyethylene Glycol (Miralax) 17 gm HSPRN PRN GT Constipation 11/12/16 03:39 12/12/16 03:38 Valproic Acid (Depakene) 250 mg DAILY GT 11/12/16 09:00 12/12/16 08:59 11/14/16 08:43 Vancomycin HCl (Vanco rx to dose) 1 ea DAILY PRN MISC . 11/12/16 09:00 12/12/16 08:59 Vancomycin HCl/ Dextrose (Vancomycin/D5W) 275 ml @ 183.708 mls/hr Q12HR IVPB 11/12/16 09:00 11/17/16 08:59 11/14/16 10:37 Zolpidem Tartrate (Ambien) 5 mg HSPRN PRN GT Insomnia 11/14/16 17:24 12/12/16 03:33 Lyndsay Bishop NP ([facility]) Nov 14, 2016 18:00
[2016-11-14] MEDS: Miralax 17gm pkt GT PRN (18:27)
[2016-11-14] MEDS: Mylanta II UD 30ml GT PRN (19:01)
[2016-11-14 20:00] VITALS: BP 104/65
[2016-11-14] MEDS: BuPROPion 75mg Tab GT SCH (21:29)
[2016-11-14] MEDS: Doxazosin 1mg Tab GT SCH (21:29)
[2016-11-15] VITALS (7 sets, daily range): BP systolic 83–122; BP diastolic 45–69
[2016-11-15] MEDS: NovoLOG Insulin Flexpen SUBQ SCH ×4 (06:00→17:22)
[2016-11-15] MEDS: Piperacillin/Tazobactam 3.375 GM in D5W 110 ML IVPB SCH ×3 (06:17→21:56)
[2016-11-15 06:34] LABS: MEAN CORPUSCULAR HEMOGLOBIN 32.7 PG (27.0-31.0); MEAN CORPUSCULAR HGB CONC 32.5 G/DL (32.0-36.0); MEAN CORPUSCULAR VOLUME 101 FL (80-99); MEAN PLATELET VOLUME 8.4 FL (6.5-10.1); PLATELET COUNT 345 K/UL (150-450); RED BLOOD COUNT 4.55 M/UL (4.70-6.10); RED CELL DISTRIBUTION WIDTH 13.4 % (11.6-14.8); WHITE BLOOD COUNT 8.4 K/UL (4.8-10.8)
[2016-11-15] MEDS: Levothyroxine 25mcg tab ORAL SCH (06:43)
[2016-11-15 06:52] LABS: ANION GAP 11 (5-15); CALCIUM 10.6 mg/dL (8.6-10.2); CARBON DIOXIDE 34 mEQ/L (20-30); CHLORIDE 95 mEQ/L (98-107); CREATININE 0.9 mg/dL (0.7-1.2); HEMOLYSIS 3; POTASSIUM 4.3 mEQ/L (3.4-4.9); SODIUM 140 mEQ/L (135-145)
[2016-11-15] MEDS: Valproic Acid 250mg/5ml Liquid GT SCH (08:45)
[2016-11-15] MEDS: BuPROPion 75mg Tab GT SCH ×2 (08:46→20:20)
[2016-11-15] MEDS: Amiodarone 200mg tab GT SCH (08:46)
[2016-11-15] MEDS: Metoprolol Tartrate 12.5mg TAB GT SCH ×2 (08:46→20:09)
[2016-11-15] MEDS: Eliquis 2.5mg tablet ORAL SCH ×2 (08:47→20:20)
--- NOTE | 2016-11-15 09:17 | Pulmonology Progress Note ---
Assessment/Plan Assessment/Plan ASSESSMENT L facial cellulitis HTN respiratory insufficiency pacemaker dysphagia, G tube multiple thyroid nodules on the right DM A fib, likely paroxysmal PLAN OF CARE MS floor abx, ID follows blood cx preliminary negative thyroid US - Multiple right thyroid nodules, largest in the lower pole and 2.5 cm long axis dimension. Appearance nonspecific, although lack of significant interval growth since CT scan of 2012 indicates this is most likely benign. CT neck - no change from [address] - Stable left facial soft tissue swelling, nonspecific. No evidence of abscess ENT input noted . US guided FNA of R thyroid nodule not done due to lack of consent fup with pathology results elevated TSH and low free T 4 and T3 started on low dose Synthroid check thyroid panel in 1 month pain management BP management with CCB, BB and Cardura BS management with SS of insulin patient with chronic A fib: on BB and Amiodarone would recommend dc Amiodarone in lieu of thyroid problems consider cardio eval-per PMD discretion to decide to stop Amiodarone in lieu of thyroid problems a/coagulation with Eliquis O2 HHN prn currently on RA, stable pulse ox CXR no acute cardiopulmonary issues aspiration precautions, GT feeding Bowel regimen case discussed and evaluated by supervising physician Subjective Allergies: Coded Allergies: AUBREY INHIBITORS (Verified Allergy, Unknown, ANGIOEDEMA, 09/17/12) Subjective afebrile, no leukocytosis on RA sat stable, no signs of respiratory distress Objective Last 24 Hour Vital Signs Date Time Temp Pulse Resp B/P Pulse Ox O2 Delivery O2 Flow Rate FiO2 11/15/16 08:47 76 98/61 11/15/16 08:46 76 98/61 11/15/16 08:32 98.2 76 20 98/61 98 Room Air 11/15/16 04:00 96.4 66 18 122/69 92 Room Air 11/15/16 00:00 97.3 66 20 113/63 96 Room Air 11/14/16 21:30 88 104/65 11/14/16 20:00 97.6 88 19 104/65 97 Room Air 11/14/16 15:58 98.2 64 20 148/66 93 Room Air 11/14/16 12:49 72 114/70 11/14/16 11:47 98.2 72 20 114/70 96 Room Air Intake and Output 11/14/16 11/15/16 19:00 07:00 Intake Total 1055.000 ml 565.000 ml Output Total 400 ml 300 ml Balance 655.000 ml 265.000 ml Intake Free Water 160 ml IV Total 495.000 ml 385.000 ml Tube Feeding 360 ml 180 ml Blood Product 40 ml Output Urine Total 400 ml 300 ml # Voids 1 2 Objective General Appearance: no acute distress, other - awaake, alert, responsive, raspy voice HEENT: normocephalic, atraumatic, anicteric, other - left facial edema Respiratory/Chest: lungs clear, no respiratory distress, no accessory muscle use Cardiovascular: normal peripheral pulses, normal rate, no JVD, irregularly irregular Abdomen: soft, non tender, non distended, other - G tube Extremities: no edema, pedal pulses normal Neurologic/Psychiatric: alert, oriented x 3, responsive Musculoskeletal: normal muscle bulk Laboratory Tests 11/15/16 05:05: Sodium Level 140, Potassium Level 4.3, Chloride Level 95L, Carbon Dioxide Level 34H, Anion Gap 11, Blood Urea Nitrogen 16, Creatinine 0.9, Estimat Glomerular Filtration Rate , Glucose Level 84, Calcium Level 10.6H 11/15/16 05:15: White Blood Count 8.4, Red Blood Count 4.55L, Hemoglobin 14.9, Hematocrit 45.8, Mean Corpuscular Volume 101H, Mean Corpuscular Hemoglobin 32.7H, Mean Corpuscular Hemoglobin Concent 32.5, Red Cell Distribution Width 13.4, Platelet Count 345, Mean Platelet Volume 8.4, Neutrophils (%) (Auto) , Lymphocytes (%) ( Auto) , Monocytes (%) (Auto) , Eosinophils (%) (Auto) , Basophils (%) (Auto) , Neutrophils % (Manual) [Pending], Lymphocytes % (Manual) [Pending], Platelet Estimate [Pending], Platelet Morphology [Pending] Current Medications Medications (Trade) Dose Ordered Sig/Yousuf Route PRN Reason Start Time Stop Time Status Last Admin Dose Admin Acetaminophen (Tylenol) 650 mg Q4H PRN ORAL fever 11/12/16 03:34 12/12/16 03:33 Al Hydroxide/Mg Hydroxide (Mylanta II) 30 ml Q6H PRN GT dyspepsia 11/14/16 17:25 12/12/16 03:33 11/14/16 19:01 Amiodarone HCl (Cordarone) 100 mg DAILY GT 11/12/16 09:00 12/12/16 08:59 11/14/16 08:43 Amlodipine Besylate (Norvasc) 5 mg DAILY GT 11/12/16 09:00 12/12/16 08:59 11/14/16 12:49 Apixaban (Eliquis) 2.5 mg Q12HR ORAL 11/12/16 09:00 12/12/16 08:59 11/15/16 08:47 Bupropion HCl (Wellbutrin) 75 mg Q12HR GT 11/14/16 17:25 12/12/16 08:59 11/15/16 08:46 Dextrose (Dextrose 50%) STAT PRN IV Hypoglycemia 11/12/16 03:35 12/12/16 03:34 Doxazosin Mesylate (Cardura) 2 mg BEDTIME GT 11/12/16 21:00 12/12/16 20:59 11/14/16 21:29 Finasteride (Proscar) 5 mg DAILY GT 11/12/16 09:00 12/12/16 08:59 11/15/16 08:46 Insulin Aspart (NovoLOG) Q6HR SUBQ 11/14/16 18:00 12/14/16 17:59 11/14/16 19:08 Levothyroxine Sodium (Synthroid) 25 mcg DAILY@0630 ORAL 11/15/16 06:30 12/15/16 06:29 11/15/16 06:43 Lorazepam (Ativan 2mg/ml 1ml) 0.5 mg Q4H PRN IV For Anxiety 11/12/16 03:37 11/19/16 03:36 Metoprolol Tartrate (Lopressor) 12.5 mg Q12H GT 11/12/16 09:00 12/12/16 08:59 11/14/16 08:44 Morphine Sulfate (Morphine Sulfate) 1 mg Q4H PRN IVP For Pain 11/12/16 03:30 11/19/16 03:29 Ondansetron HCl (Zofran) 4 mg Q6H PRN IVP Nausea & Vomiting 11/12/16 03:38 12/12/16 03:37 11/15/16 01:27 Piperacillin Sod/ Tazobactam Sod 3.375 gm/Dextrose 110 ml @ 27.5 mls/hr Q8HR IVPB 11/12/16 06:00 11/19/16 05:59 11/15/16 06:17 Polyethylene Glycol (Miralax) 17 gm HSPRN PRN GT Constipation 11/12/16 03:39 12/12/16 03:38 11/14/16 18:27 Valproic Acid (Depakene) 250 mg DAILY GT 11/12/16 09:00 12/12/16 08:59 11/15/16 08:45 Vancomycin HCl (Vanco rx to dose) 1 ea DAILY PRN MISC . 11/12/16 09:00 12/12/16 08:59 Vancomycin HCl/ Dextrose (Vancomycin/D5W) 275 ml @ 183.708 mls/hr Q12HR IVPB 11/12/16 09:00 11/17/16 08:59 11/14/16 21:29 Zolpidem Tartrate (Ambien) 5 mg HSPRN PRN GT Insomnia 11/14/16 17:24 12/12/16 03:33 Dario (Freddie)Lyndsay NP Nov 15, 2016 09:17
[2016-11-15 09:50] LABS: BAND NEUTROPHILS % (MANUAL) 6 % (0-8); BASOPHILS % (MANUAL) 0 % (0-2); EOSINOPHILS % (MANUAL) 1 % (0-3); LYMPHOCYTES % (MANUAL) 13 % (20-45); MACROCYTES 1+; NEUTROPHILS % (MANUAL) 75 % (45-75); PLATELET ESTIMATE ADEQUATE; PLATELET MORPHOLOGY NORMAL; TOTAL CELLS COUNTED 100
[2016-11-15] MEDS: Vancomycin 1 GM in D5W 275 ML IVPB SCH ×2 (10:27→20:21)
[2016-11-15] MEDS ORDERED: NS Irrig 1000ml ONE (10:51)
[2016-11-15] MEDS ORDERED: Tubing IV Secondary IV ONE (10:51)
--- NOTE | 2016-11-15 11:46 | General Progress Note ---
Assessment/Plan Problem List: (1) History of CVA (cerebrovascular accident) ICD Codes: Z86.73 - History of CVA (cerebrovascular accident) SNOMED: 120575875 (2) History of respiratory failure ICD Codes: Z87.09 - History of respiratory failure SNOMED: 966788825 (3) Dysphagia ICD Codes: R13.10 - Dysphagia SNOMED: 44500188 (4) PEG (percutaneous endoscopic gastrostomy) adjustment/replacement/removal ICD Codes: Z43.1 - Encounter for attention to gastrostomy SNOMED: 721223677 (5) Cellulitis and abscess of face ICD Codes: L03.211 - Cellulitis of face; L02.01 - Cutaneous abscess of face SNOMED: 451874634 (6) Swelling of left side of face ICD Codes: R22.0 - Localized swelling, mass and lump, head SNOMED: 469764896 (7) Diabetes ICD Codes: E11.9 - Diabetes SNOMED: 30522859 (8) HTN (hypertension) ICD Codes: I10 - HTN (hypertension) SNOMED: 24087857 (9) Sepsis ICD Codes: A41.9 - Sepsis SNOMED: 04573147 (10) Thyroid mass of unclear etiology ICD Codes: E07.89 - Other specified disorders of thyroid SNOMED: 833278038 Status: progressing Assessment/Plan fascial cellulits hypothroid thryoid nodule cant do fna Subjective ROS Limited/Unobtainable: Yes Constitutional: Reports: no symptoms Allergies: Coded Allergies: AUBREY INHIBITORS (Verified Allergy, Unknown, ANGIOEDEMA, 09/17/12) Objective Last 24 Hour Vital Signs Date Time Temp Pulse Resp B/P Pulse Ox O2 Delivery O2 Flow Rate FiO2 11/15/16 08:47 76 98/61 11/15/16 08:46 76 98/61 11/15/16 08:32 98.2 76 20 98/61 98 Room Air 11/15/16 04:00 96.4 66 18 122/69 92 Room Air 11/15/16 00:00 97.3 66 20 113/63 96 Room Air 11/14/16 21:30 88 104/65 11/14/16 20:00 97.6 88 19 104/65 97 Room Air 11/14/16 15:58 98.2 64 20 148/66 93 Room Air 11/14/16 12:49 72 114/70 11/14/16 11:47 98.2 72 20 114/70 96 Room Air Intake and Output 11/14/16 11/15/16 19:00 07:00 Intake Total 1055.000 ml 565.000 ml Output Total 400 ml 300 ml Balance 655.000 ml 265.000 ml Intake Free Water 160 ml IV Total 495.000 ml 385.000 ml Tube Feeding 360 ml 180 ml Blood Product 40 ml Output Urine Total 400 ml 300 ml # Voids 1 2 Laboratory Tests 11/15/16 05:05: Sodium Level 140, Potassium Level 4.3, Chloride Level 95L, Carbon Dioxide Level 34H, Anion Gap 11, Blood Urea Nitrogen 16, Creatinine 0.9, Estimat Glomerular Filtration Rate , Glucose Level 84, Calcium Level 10.6H 11/15/16 05:15: White Blood Count 8.4, Red Blood Count 4.55L, Hemoglobin 14.9, Hematocrit 45.8, Mean Corpuscular Volume 101H, Mean Corpuscular Hemoglobin 32.7H, Mean Corpuscular Hemoglobin Concent 32.5, Red Cell Distribution Width 13.4, Platelet Count 345, Mean Platelet Volume 8.4, Neutrophils (%) (Auto) , Lymphocytes (%) ( Auto) , Monocytes (%) (Auto) , Eosinophils (%) (Auto) , Basophils (%) (Auto) , Differential Total Cells Counted 100, Neutrophils % (Manual) 75, Lymphocytes % ( Manual) 13L, Monocytes % (Manual) 5, Eosinophils % (Manual) 1, Basophils % ( Manual) 0, Band Neutrophils 6, Platelet Estimate Adequate, Platelet Morphology Normal, Macrocytosis 1+ Height (Feet): 5 Height (Inches): 9.00 Weight (Pounds): 170 EENT: PERRL/EOMI Cardiovascular: normal rate Respiratory/Chest: lungs clear Abdomen: soft Laina Pereira MD Nov 15, 2016 11:46
--- NOTE | 2016-11-15 14:44 | Cardiac Electrophysiology PN ---
Subjective Subjective [id number] Objective Last 24 Hour Vital Signs Date Time Temp Pulse Resp B/P Pulse Ox O2 Delivery O2 Flow Rate FiO2 11/15/16 13:33 80 118/45 11/15/16 12:23 98.0 79 20 83/60 98 Room Air 11/15/16 08:47 76 98/61 11/15/16 08:46 76 98/61 11/15/16 08:32 98.2 76 20 98/61 98 Room Air 11/15/16 04:00 96.4 66 18 122/69 92 Room Air 11/15/16 00:00 97.3 66 20 113/63 96 Room Air 11/14/16 21:30 88 104/65 11/14/16 20:00 97.6 88 19 104/65 97 Room Air 11/14/16 15:58 98.2 64 20 148/66 93 Room Air Intake and Output 11/14/16 11/15/16 19:00 07:00 Intake Total 1055.000 ml 595.000 ml Output Total 400 ml 300 ml Balance 655.000 ml 295.000 ml Intake Free Water 160 ml IV Total 495.000 ml 385.000 ml Tube Feeding 360 ml 210 ml Blood Product 40 ml Output Urine Total 400 ml 300 ml # Voids 1 2 Laboratory Tests Test 11/15/16 05:05 11/15/16 05:15 Sodium Level 140 mEQ/L (135-145) Potassium Level 4.3 mEQ/L (3.4-4.9) Chloride Level 95 mEQ/L (98-107) L Carbon Dioxide Level 34 mEQ/L (20-30) H Anion Gap 11 (5-15) Blood Urea Nitrogen 16 mg/dL (7-23) Creatinine 0.9 mg/dL (0.7-1.2) Estimat Glomerular Filtration Rate mL/min (>60) Glucose Level 84 mg/dL (74-106) Calcium Level 10.6 mg/dL (8.6-10.2) H White Blood Count 8.4 K/UL (4.8-10.8) Red Blood Count 4.55 M/UL (4.70-6.10) L Hemoglobin 14.9 G/DL (14.2-18.0) Hematocrit 45.8 % (42.0-52.0) Mean Corpuscular Volume 101 FL (80-99) H Mean Corpuscular Hemoglobin 32.7 PG (27.0-31.0) H Mean Corpuscular Hemoglobin Concent 32.5 G/DL (32.0-36.0) Red Cell Distribution Width 13.4 % (11.6-14.8) Platelet Count 345 K/UL (150-450) Mean Platelet Volume 8.4 FL (6.5-10.1) Neutrophils (%) (Auto) % (45.0-75.0) Lymphocytes (%) (Auto) % (20.0-45.0) Monocytes (%) (Auto) % (1.0-10.0) Eosinophils (%) (Auto) % (0.0-3.0) Basophils (%) (Auto) % (0.0-2.0) Differential Total Cells Counted 100 Neutrophils % (Manual) 75 % (45-75) Lymphocytes % (Manual) 13 % (20-45) L Monocytes % (Manual) 5 % (1-10) Eosinophils % (Manual) 1 % (0-3) Basophils % (Manual) 0 % (0-2) Band Neutrophils 6 % (0-8) Platelet Estimate Adequate Platelet Morphology Normal Macrocytosis 1+ Microbiology Date/Time Source Procedure Growth Status 11/14/16 06:00 Nasal Nares Left MRSA Culture - Final NO METHICILLIN RESISTANT STAPH AUREUS... Complete HILDA MEJIA Nov 15, 2016 14:44
--- NOTE | 2016-11-15 16:48 | Infectious Diseases Prog Note ---
Assessment/Plan Problems: (1) Cellulitis and abscess of face Assessment & Plan: improving on zosyn and vancomycin empirically , CT scan of the sinuses showed soft tissue swelling, and no abscess, can't do an MRI of the head with contrast to rule out any soft tissue abscess or infiltration since he has pacemaker. ENT is following (2) Cellulitis Assessment & Plan: of the neck , CT scan showed cellulitis and right lower thyroids pole mass S/P biopsy with pathology is pending , continue zosyn and vancomycin . (3) Sepsis Assessment & Plan: less likely with negative blood culture . (4) Diabetes Assessment & Plan: recommend tight glycemic control to keep blood glucose between 80-120 (5) HTN (hypertension) Assessment & Plan: continue meds to keep SBP <140 (6) Thyroid mass of unclear etiology Assessment & Plan: had US and FNA biopsy , pathology is pending , endocrinology is following Subjective Constitutional: Reports: no symptoms HEENT: Reports: other - left facial swelling Allergies: Coded Allergies: AUBREY INHIBITORS (Verified Allergy, Unknown, ANGIOEDEMA, 09/17/12) All Systems: reviewed and negative except above Objective Vital Signs Last 24 Hour Vital Signs Date Time Temp Pulse Resp B/P Pulse Ox O2 Delivery O2 Flow Rate FiO2 11/15/16 16:00 97.6 88 19 91/56 96 11/15/16 13:33 80 118/45 11/15/16 12:23 98.0 79 20 83/60 98 Room Air 11/15/16 08:47 76 98/61 11/15/16 08:46 76 98/61 11/15/16 08:32 98.2 76 20 98/61 98 Room Air 11/15/16 04:00 96.4 66 18 122/69 92 Room Air 11/15/16 00:00 97.3 66 20 113/63 96 Room Air 11/14/16 21:30 88 104/65 11/14/16 20:00 97.6 88 19 104/65 97 Room Air Height (Feet): 5 Height (Inches): 9.00 Weight (Pounds): 170 General Appearance: WD/WN, no acute distress, other - left facial swelling, with mild redness HEENT: atraumatic, anicteric, mucous membranes moist, PERRL Respiratory/Chest: chest wall non-tender, lungs clear, normal breath sounds, no accessory muscle use Cardiovascular: normal peripheral pulses, normal rate, regular rhythm, no gallop/murmur, no JVD Abdomen: normal bowel sounds, soft, non tender, no organomegaly, non distended , no mass, no scars Extremities: no cyanosis, no clubbing Skin: no rash, no lesions Microbiology Date/Time Source Procedure Growth Status 11/14/16 06:00 Nasal Nares Left MRSA Culture - Final NO METHICILLIN RESISTANT STAPH AUREUS... Complete Laboratory Tests Test 11/15/16 05:05 11/15/16 05:15 Sodium Level 140 mEQ/L (135-145) Potassium Level 4.3 mEQ/L (3.4-4.9) Chloride Level 95 mEQ/L (98-107) L Carbon Dioxide Level 34 mEQ/L (20-30) H Anion Gap 11 (5-15) Blood Urea Nitrogen 16 mg/dL (7-23) Creatinine 0.9 mg/dL (0.7-1.2) Estimat Glomerular Filtration Rate mL/min (>60) Glucose Level 84 mg/dL (74-106) Calcium Level 10.6 mg/dL (8.6-10.2) H White Blood Count 8.4 K/UL (4.8-10.8) Red Blood Count 4.55 M/UL (4.70-6.10) L Hemoglobin 14.9 G/DL (14.2-18.0) Hematocrit 45.8 % (42.0-52.0) Mean Corpuscular Volume 101 FL (80-99) H Mean Corpuscular Hemoglobin 32.7 PG (27.0-31.0) H Mean Corpuscular Hemoglobin Concent 32.5 G/DL (32.0-36.0) Red Cell Distribution Width 13.4 % (11.6-14.8) Platelet Count 345 K/UL (150-450) Mean Platelet Volume 8.4 FL (6.5-10.1) Neutrophils (%) (Auto) % (45.0-75.0) Lymphocytes (%) (Auto) % (20.0-45.0) Monocytes (%) (Auto) % (1.0-10.0) Eosinophils (%) (Auto) % (0.0-3.0) Basophils (%) (Auto) % (0.0-2.0) Differential Total Cells Counted 100 Neutrophils % (Manual) 75 % (45-75) Lymphocytes % (Manual) 13 % (20-45) L Monocytes % (Manual) 5 % (1-10) Eosinophils % (Manual) 1 % (0-3) Basophils % (Manual) 0 % (0-2) Band Neutrophils 6 % (0-8) Platelet Estimate Adequate Platelet Morphology Normal Macrocytosis 1+ Current Medications Medications (Trade) Dose Ordered Sig/Yousuf Route PRN Reason Start Time Stop Time Status Last Admin Dose Admin Acetaminophen (Tylenol) 650 mg Q4H PRN ORAL fever 11/12/16 03:34 12/12/16 03:33 Al Hydroxide/Mg Hydroxide (Mylanta II) 30 ml Q6H PRN GT dyspepsia 11/14/16 17:25 12/12/16 03:33 11/14/16 19:01 Amiodarone HCl (Cordarone) 100 mg DAILY GT 11/12/16 09:00 12/12/16 08:59 11/14/16 08:43 Amlodipine Besylate (Norvasc) 5 mg DAILY GT 11/12/16 09:00 12/12/16 08:59 11/14/16 12:49 Apixaban (Eliquis) 2.5 mg Q12HR ORAL 11/12/16 09:00 12/12/16 08:59 11/15/16 08:47 Bupropion HCl (Wellbutrin) 75 mg Q12HR GT 11/14/16 17:25 12/12/16 08:59 11/15/16 08:46 Dextrose (Dextrose 50%) STAT PRN IV Hypoglycemia 11/12/16 03:35 12/12/16 03:34 Doxazosin Mesylate (Cardura) 2 mg BEDTIME GT 11/12/16 21:00 12/12/16 20:59 11/14/16 21:29 Finasteride (Proscar) 5 mg DAILY GT 11/12/16 09:00 12/12/16 08:59 11/15/16 08:46 Insulin Aspart (NovoLOG) Q6HR SUBQ 11/14/16 18:00 12/14/16 17:59 11/14/16 19:08 Levothyroxine Sodium (Synthroid) 25 mcg DAILY@0630 ORAL 11/15/16 06:30 12/15/16 06:29 11/15/16 06:43 Lorazepam (Ativan 2mg/ml 1ml) 0.5 mg Q4H PRN IV For Anxiety 11/12/16 03:37 11/19/16 03:36 Metoprolol Tartrate (Lopressor) 12.5 mg Q12H GT 11/12/16 09:00 12/12/16 08:59 11/14/16 08:44 Morphine Sulfate (Morphine Sulfate) 1 mg Q4H PRN IVP For Pain 11/12/16 03:30 11/19/16 03:29 Ondansetron HCl (Zofran) 4 mg Q6H PRN IVP Nausea & Vomiting 11/12/16 03:38 12/12/16 03:37 11/15/16 11:40 Piperacillin Sod/ Tazobactam Sod 3.375 gm/Dextrose 110 ml @ 27.5 mls/hr Q8HR IVPB 11/12/16 06:00 11/19/16 05:59 11/15/16 15:47 Polyethylene Glycol (Miralax) 17 gm HSPRN PRN GT Constipation 11/12/16 03:39 12/12/16 03:38 11/14/16 18:27 Valproic Acid (Depakene) 250 mg DAILY GT 11/12/16 09:00 12/12/16 08:59 11/15/16 08:45 Vancomycin HCl (Vanco rx to dose) 1 ea DAILY PRN MISC . 11/12/16 09:00 12/12/16 08:59 Vancomycin HCl/ Dextrose (Vancomycin/D5W) 275 ml @ 183.708 mls/hr Q12HR IVPB 11/12/16 09:00 11/17/16 08:59 11/15/16 10:27 Zolpidem Tartrate (Ambien) 5 mg HSPRN PRN GT Insomnia 11/14/16 17:24 12/12/16 03:33 Aida Frederick M.D. Nov 15, 2016 16:48
[2016-11-15] MEDS: Miralax 17gm pkt GT PRN (17:45)
--- NOTE | 2016-11-15 20:13 | General Progress Note ---
Assessment/Plan Assessment/Plan 1. Left-sided facial erythema, cellulitis, is on antibiotics. Continue abx. Have reviewed imaging of thyroid, does not appear change in nodules. S/p bx and now pending MRI to r/o malgiancy 2. Anemia secondary to chronic disease. 3. Right lower lobe thyroid nodule 19 x 11mm, s/p biopsy 4. Diabetes mellitus. 5. Atrial fibrillation. 6. Cellulitis of the face. 7. Diabetes mellitus. 8. Hypertension. 9. Psychiatric history. 10. Afib on eliquis RECOMMENDATIONS: 1. Monitor counts. 2. Transfuse to hemoglobin >7 3. MRI query head pending 4. Followup on ID, endo, Pulmonary recs, ENT recs 5. s/p biopsy of right thyroid nodule mass. 6. DVT ppx with eliquis. 7. GI ppx as needed. 8. Pain control. 9. Antibiotics as needed. 10. staff Thank you, Sue Alcaraz MD Subjective Constitutional: Reports: no symptoms HEENT: Reports: no symptoms Cardiovascular: Reports: no symptoms Respiratory: Reports: no symptoms Gastrointestinal/Abdominal: Reports: no symptoms Genitourinary: Reports: no symptoms Neurologic/Psychiatric: Reports: no symptoms Endocrine: Reports: no symptoms Hematologic/Lymphatic: Reports: no symptoms Allergies: Coded Allergies: AUBREY INHIBITORS (Verified Allergy, Unknown, ANGIOEDEMA, 09/17/12) Objective Last 24 Hour Vital Signs Date Time Temp Pulse Resp B/P Pulse Ox O2 Delivery O2 Flow Rate FiO2 11/15/16 20:09 88 91/56 11/15/16 16:00 97.6 88 19 91/56 96 11/15/16 13:33 80 118/45 11/15/16 12:23 98.0 79 20 83/60 98 Room Air 11/15/16 08:47 76 98/61 11/15/16 08:46 76 98/61 11/15/16 08:32 98.2 76 20 98/61 98 Room Air 11/15/16 04:00 96.4 66 18 122/69 92 Room Air 11/15/16 00:00 97.3 66 20 113/63 96 Room Air 11/14/16 21:30 88 104/65 Intake and Output 11/14/16 11/15/16 19:00 07:00 Intake Total 1055.000 ml 595.000 ml Output Total 400 ml 300 ml Balance 655.000 ml 295.000 ml Intake Free Water 160 ml IV Total 495.000 ml 385.000 ml Tube Feeding 360 ml 210 ml Blood Product 40 ml Output Urine Total 400 ml 300 ml # Voids 1 2 Laboratory Tests 11/15/16 05:05: Sodium Level 140, Potassium Level 4.3, Chloride Level 95L, Carbon Dioxide Level 34H, Anion Gap 11, Blood Urea Nitrogen 16, Creatinine 0.9, Estimat Glomerular Filtration Rate , Glucose Level 84, Calcium Level 10.6H 11/15/16 05:15: White Blood Count 8.4, Red Blood Count 4.55L, Hemoglobin 14.9, Hematocrit 45.8, Mean Corpuscular Volume 101H, Mean Corpuscular Hemoglobin 32.7H, Mean Corpuscular Hemoglobin Concent 32.5, Red Cell Distribution Width 13.4, Platelet Count 345, Mean Platelet Volume 8.4, Neutrophils (%) (Auto) , Lymphocytes (%) ( Auto) , Monocytes (%) (Auto) , Eosinophils (%) (Auto) , Basophils (%) (Auto) , Differential Total Cells Counted 100, Neutrophils % (Manual) 75, Lymphocytes % ( Manual) 13L, Monocytes % (Manual) 5, Eosinophils % (Manual) 1, Basophils % ( Manual) 0, Band Neutrophils 6, Platelet Estimate Adequate, Platelet Morphology Normal, Macrocytosis 1+ Height (Feet): 5 Height (Inches): 9.00 Weight (Pounds): 170 General Appearance: no apparent distress EENT: TMs normal Neck: supple Cardiovascular: regular rhythm Respiratory/Chest: lungs clear Abdomen: soft Pelvis: no masses Extremities: non-tender Edema: no edema noted Arm (L), no edema noted Arm (R), no edema noted Leg (L), no edema noted Leg (R), no edema noted Pedal (L), no edema noted Pedal (R), no edema noted Generalized Edema: mild edema Neurologic: alert Lymphatic: normal anterior cervical (L), normal anterior cervical (R), normal axillary (L), normal axillary (R), normal inguinal (L), normal inguinal (R), normal other, normal posterior cervical (L), normal posterior cervical (R), normal submandibular (L), normal submandibular (R), normal supraclavicular (L), normal supraclavicular (R) SUE ALCARAZ Nov 15, 2016 20:13
[2016-11-15] MEDS: Doxazosin 1mg Tab GT SCH (20:20)
--- NOTE | 2016-11-15 21:18 | Consultation ---
DATE OF CONSULTATION: 11/15/2016 CARDIOLOGY CONSULTATION CONSULTING PHYSICIAN: Warren Montanez M.D. REASON FOR CONSULTATION: Evaluation of the patient's pacemaker and the patient also has hypertension and congestive heart failure. HISTORY OF PRESENT ILLNESS: The patient is a 76-year-old gentleman with history of hypertension, pacemaker, history of diabetes, congestive heart failure, atrial fibrillation, and dementia, who now presents to [facility] for worsening of left-sided facial swelling and neck redness. The patient has history of throat cancer in the past and the patient was brought to the emergency room for left-sided facial swelling and a CT scan of the head and neck was performed that showed mild left facial swelling. Cardiology consultation was requested for further evaluation and management of pacemaker. REVIEW OF SYSTEMS: Negative other than what was mentioned in the history of present illness. PAST MEDICAL HISTORY: 1. Hypertension. 2. Congestive heart failure. 3. History of pacemaker. 4. History of atrial fibrillation. 5. History of mood disorder. 6. Diabetes. 7. History of throat cancer. PHYSICAL EXAMINATION: VITAL SIGNS: Blood pressure is 82/60, currently 118/45; pulse is 80, and respirations 18. HEAD AND NECK: Shows no JVD. There is left facial swelling. LUNGS: Clear. CARDIOVASCULAR: Shows regular S1 and S2 with a pacemaker in the left subclavian. ABDOMEN: Soft, and is status post G-tube. EXTREMITIES: No pitting edema. LABORATORY AND DIAGNOSTIC DATA: His EKG shows sinus rhythm, normal electrocardiogram. His labs show a white count of 8.4, hemoglobin 14.9, hematocrit 45.8, and platelet count of 345,000. Sodium 140, potassium 4.3, BUN 16, creatinine 0.9, and glucose of 84. TSH is 43. ASSESSMENT AND PLAN: 1. Status post permanent pacemaker implantation. We will have to find the brand of the pacemaker and interrogate for further evaluation. 2. Paroxysmal atrial fibrillation, currently in sinus rhythm, on amiodarone 100 mg daily. We will interrogate the pacemaker to evaluate the burden of atrial fibrillation. The patient is also on 2.5 mg twice a day for atrial fibrillation. 3. Episode of hypotension. I will discontinue Norvasc and keep the patient on low-dose metoprolol with hold parameters. Echocardiogram will also be ordered for further evaluation. 4. Hypothyroidism, on Synthroid under management of Dr. Chairez. 5. Left facial cellulitis. 6. Dysphagia, status post gastrostomy tube. 7. Diabetes. Thank you very much, Dr. Pereira, for allowing me to participate in the care of this patient. Please do not hesitate to contact me for any questions regarding my evaluation. Warren Montanez M.D. DR: MARIO ALBERTO JOB#: [id number] CC:
[2016-11-16] VITALS: BP 109/72
[2016-11-16 04:00] VITALS: BP 116/77
[2016-11-16] MEDS: NovoLOG Insulin Flexpen SUBQ SCH ×4 (06:00→18:00)
[2016-11-16] MEDS: Piperacillin/Tazobactam 3.375 GM in D5W 110 ML IVPB SCH ×3 (06:04→22:07)
[2016-11-16] MEDS: Levothyroxine 25mcg tab ORAL SCH (06:27)
[2016-11-16 08:15] VITALS: BP 77/51
[2016-11-16] MEDS: Metoprolol Tartrate 12.5mg TAB GT SCH ×2 (09:00→20:39)
[2016-11-16] MEDS: Amiodarone 200mg tab GT SCH (09:00)
--- NOTE | 2016-11-16 09:02 | General Progress Note ---
Assessment/Plan Problem List: (1) Hypothyroidism ICD Codes: E03.9 - Hypothyroidism, unspecified SNOMED: 08341803 (2) Swelling of left side of face ICD Codes: R22.0 - Localized swelling, mass and lump, head SNOMED: 926989739 (3) Cellulitis and abscess of face ICD Codes: L03.211 - Cellulitis of face; L02.01 - Cutaneous abscess of face SNOMED: 260577255 (4) PEG (percutaneous endoscopic gastrostomy) adjustment/replacement/removal ICD Codes: Z43.1 - Encounter for attention to gastrostomy SNOMED: 293594451 (5) Dysphagia ICD Codes: R13.10 - Dysphagia SNOMED: 23284891 (6) History of respiratory failure ICD Codes: Z87.09 - History of respiratory failure SNOMED: 687324283 (7) History of CVA (cerebrovascular accident) ICD Codes: Z86.73 - History of CVA (cerebrovascular accident) SNOMED: 198076444 (8) Thyroid mass of unclear etiology ICD Codes: E07.89 - Other specified disorders of thyroid SNOMED: 048071345 (9) Diabetes ICD Codes: E11.9 - Diabetes SNOMED: 26207832 Assessment/Plan FNA of thyroid mass ordered - can't be done due to lack of consent Levothyroxine dosage will be increased to 75 mcg daily TSH should be repeated in 3-4 weeks for further dosage adjustment glucose values are well controlled continue blood glucose monitoring and Novolog coverage Subjective ROS Limited/Unobtainable: Yes Allergies: Coded Allergies: AUBREY INHIBITORS (Verified Allergy, Unknown, ANGIOEDEMA, 09/17/12) Subjective events noted - interval notes reviewed Objective Last 24 Hour Vital Signs Date Time Temp Pulse Resp B/P Pulse Ox O2 Delivery O2 Flow Rate FiO2 11/16/16 04:00 97.9 88 20 116/77 90 Room Air 11/16/16 00:00 98.2 79 22 109/72 89 Room Air 11/15/16 20:09 88 91/56 11/15/16 20:00 99.9 90 22 103/57 97 Room Air 11/15/16 16:00 97.6 88 19 91/56 96 11/15/16 13:33 80 118/45 11/15/16 12:23 98.0 79 20 83/60 98 Room Air Intake and Output 11/15/16 11/16/16 19:00 07:00 Intake Total 890.000 ml 367.416 ml Balance 890.000 ml 367.416 ml Intake Free Water 30 ml IV Total 830.000 ml 367.416 ml Tube Feeding 30 ml 0 ml # Voids 3 3 Laboratory Tests 11/16/16 04:40: Pro-B-Type Natriuretic Peptide 2825H Height (Feet): 5 Height (Inches): 9.00 Weight (Pounds): 170 General Appearance: lethargic EENT: other - facial swelling Neck: supple Cardiovascular: irregularly irregular Respiratory/Chest: decreased breath sounds Abdomen: normal bowel sounds Objective Current Medications Medications (Trade) Dose Ordered Sig/Yousuf Route PRN Reason Start Time Stop Time Status Last Admin Dose Admin Acetaminophen (Tylenol) 650 mg Q4H PRN ORAL fever 11/12/16 03:34 12/12/16 03:33 Al Hydroxide/Mg Hydroxide (Mylanta II) 30 ml Q6H PRN GT dyspepsia 11/14/16 17:25 12/12/16 03:33 11/14/16 19:01 Amiodarone HCl (Cordarone) 100 mg DAILY GT 11/12/16 09:00 12/12/16 08:59 11/14/16 08:43 Amlodipine Besylate (Norvasc) 5 mg DAILY GT 11/12/16 09:00 12/12/16 08:59 11/14/16 12:49 Apixaban (Eliquis) 2.5 mg Q12HR ORAL 11/12/16 09:00 12/12/16 08:59 11/15/16 20:20 Bupropion HCl (Wellbutrin) 75 mg Q12HR GT 11/14/16 17:25 12/12/16 08:59 11/15/16 20:20 Dextrose (Dextrose 50%) STAT PRN IV Hypoglycemia 11/12/16 03:35 12/12/16 03:34 Doxazosin Mesylate (Cardura) 2 mg BEDTIME GT 11/12/16 21:00 12/12/16 20:59 11/15/16 20:20 Finasteride (Proscar) 5 mg DAILY GT 11/12/16 09:00 12/12/16 08:59 11/15/16 08:46 Insulin Aspart (NovoLOG) Q6HR SUBQ 11/14/16 18:00 12/14/16 17:59 11/14/16 19:08 Levothyroxine Sodium (Synthroid) 25 mcg DAILY@0630 ORAL 11/15/16 06:30 12/15/16 06:29 11/16/16 06:27 Lorazepam (Ativan 2mg/ml 1ml) 0.5 mg Q4H PRN IV For Anxiety 11/12/16 03:37 11/19/16 03:36 Metoprolol Tartrate (Lopressor) 12.5 mg Q12H GT 11/12/16 09:00 12/12/16 08:59 11/14/16 08:44 Morphine Sulfate (Morphine Sulfate) 1 mg Q4H PRN IVP For Pain 11/12/16 03:30 11/19/16 03:29 Ondansetron HCl (Zofran) 4 mg Q6H PRN IVP Nausea & Vomiting 11/12/16 03:38 12/12/16 03:37 11/16/16 02:38 Piperacillin Sod/ Tazobactam Sod 3.375 gm/Dextrose 110 ml @ 27.5 mls/hr Q8HR IVPB 11/12/16 06:00 11/19/16 05:59 11/16/16 06:04 Polyethylene Glycol (Miralax) 17 gm HSPRN PRN GT Constipation 11/12/16 03:39 12/12/16 03:38 11/15/16 17:45 Valproic Acid (Depakene) 250 mg DAILY GT 11/12/16 09:00 12/12/16 08:59 11/15/16 08:45 Vancomycin HCl (Vanco rx to dose) 1 ea DAILY PRN MISC . 11/12/16 09:00 12/12/16 08:59 Vancomycin HCl/ Dextrose (Vancomycin/D5W) 275 ml @ 183.708 mls/hr Q12HR IVPB 11/12/16 09:00 11/17/16 08:59 11/15/16 20:21 Zolpidem Tartrate (Ambien) 5 mg HSPRN PRN GT Insomnia 11/14/16 17:24 12/12/16 03:33 Item Value Date Time Bedside Blood Glucose 92 mg/dl 11/16/16 0600 Bedside Blood Glucose 92 mg/dl 11/16/16 0000 Bedside Blood Glucose 95 mg/dl 11/15/16 1722 Bedside Blood Glucose 113 mg/dl 11/15/16 1203 Bedside Blood Glucose 83 mg/dl 11/15/16 0600 BETTY GERMAIN Nov 16, 2016 09:02
[2016-11-16] MEDS: Eliquis 2.5mg tablet ORAL SCH ×2 (09:06→20:39)
[2016-11-16] MEDS: BuPROPion 75mg Tab GT SCH ×2 (09:06→20:39)
[2016-11-16] MEDS: Valproic Acid 250mg/5ml Liquid GT SCH (09:07)
--- NOTE | 2016-11-16 09:58 | Diagnostic Imaging Report ---
Clinical history: Abdominal pain, nausea and vomiting. Technique: Single frontal abdominal radiograph was obtained. Comparisons: 10/14/16. Findings: Balloon Retention gastrostomy tube is noted in the left upper quadrant with mild air distention of the stomach. Moderate air distention of several small and large bowel loops is identified, suspicious for ileus or enteritis. IMPRESSION: Moderate air distention of small and large bowel loops suspicious for ileus or enteritis. Gastrostomy tube noted.
[2016-11-16] MEDS: D5 1/2NS 1,000 ML IV SCH ×2 (10:37→22:20)
[2016-11-16] MEDS: Vancomycin 1 GM in D5W 275 ML IVPB SCH ×2 (10:37→20:43)
[2016-11-16 12:15] VITALS: BP 131/68
--- NOTE | 2016-11-16 12:54 | General Progress Note ---
Assessment/Plan Problem List: (1) History of CVA (cerebrovascular accident) ICD Codes: Z86.73 - History of CVA (cerebrovascular accident) SNOMED: 409898908 (2) History of respiratory failure ICD Codes: Z87.09 - History of respiratory failure SNOMED: 275572453 (3) Dysphagia ICD Codes: R13.10 - Dysphagia SNOMED: 03406027 (4) PEG (percutaneous endoscopic gastrostomy) adjustment/replacement/removal ICD Codes: Z43.1 - Encounter for attention to gastrostomy SNOMED: 746359446 (5) Cellulitis and abscess of face ICD Codes: L03.211 - Cellulitis of face; L02.01 - Cutaneous abscess of face SNOMED: 824946543 (6) Swelling of left side of face ICD Codes: R22.0 - Localized swelling, mass and lump, head SNOMED: 085642163 (7) Diabetes ICD Codes: E11.9 - Diabetes SNOMED: 73588289 (8) HTN (hypertension) ICD Codes: I10 - HTN (hypertension) SNOMED: 20783731 (9) Sepsis ICD Codes: A41.9 - Sepsis SNOMED: 51775319 (10) Thyroid mass of unclear etiology ICD Codes: E07.89 - Other specified disorders of thyroid SNOMED: 954109347 Status: progressing Assessment/Plan cellulitis afebrile vitals stable htn no wheezing s/p multiple vomiting consulted dr swann Subjective ROS Limited/Unobtainable: Yes Constitutional: Reports: no symptoms Allergies: Coded Allergies: AUBREY INHIBITORS (Verified Allergy, Unknown, ANGIOEDEMA, 09/17/12) Objective Last 24 Hour Vital Signs Date Time Temp Pulse Resp B/P Pulse Ox O2 Delivery O2 Flow Rate FiO2 11/16/16 12:15 98.6 76 20 131/68 97 Room Air 11/16/16 09:00 80 77/51 11/16/16 09:00 80 77/51 11/16/16 08:15 98.1 80 21 77/51 95 Room Air 11/16/16 04:00 97.9 88 20 116/77 90 Room Air 11/16/16 00:00 98.2 79 22 109/72 89 Room Air 11/15/16 20:09 88 91/56 11/15/16 20:00 99.9 90 22 103/57 97 Room Air 11/15/16 16:00 97.6 88 19 91/56 96 11/15/16 13:33 80 118/45 Intake and Output 11/15/16 11/16/16 19:00 07:00 Intake Total 890.000 ml 367.416 ml Balance 890.000 ml 367.416 ml Intake Free Water 30 ml IV Total 830.000 ml 367.416 ml Tube Feeding 30 ml 0 ml # Voids 3 3 Laboratory Tests 11/16/16 04:40: Pro-B-Type Natriuretic Peptide 2825H Height (Feet): 5 Height (Inches): 9.00 Weight (Pounds): 170 EENT: PERRL/EOMI Neck: supple Cardiovascular: normal rate Respiratory/Chest: lungs clear Abdomen: soft Laina Pereira MD Nov 16, 2016 12:54
--- NOTE | 2016-11-16 13:31 | Pulmonology Progress Note ---
Assessment/Plan Assessment/Plan ASSESSMENT L facial cellulitis HTN respiratory insufficiency pacemaker dysphagia, G tube multiple thyroid nodules on the right DM A fib PLAN OF CARE MS floor abx, ID follows blood cx preliminary negatuve thyroid US - Multiple right thyroid nodules, largest in the lower pole and 2.5 cm long axis dimension. Appearance nonspecific, although lack of significant interval growth since CT scan of 2012 indicates this is most likely benign. CT neck - no change from [address] - Stable left facial soft tissue swelling, nonspecific. No evidence of abscess ENT input noted . US guided FNA of R thyroid nodule not done due to lack of consent elevated TSH and low free T 4 and T3 started on low dose Synthroid endo follows. increased dose, check thyroid panel in 3-4 weeks pain management BP management with CCB, BB and Cardura BS management with SS of insulin patient with chronic A fib: on BB and Amiodarone cardio follows arrate control with BB , off Norvasc a/coagulation with Eliquis ? dc Amiodarone due to recurrent thyroid issues -per cardio discretion O2 HHN prn currently on RA, stable pulse ox CXR no acute cardiopulmonary issues aspiration precautions, GT feeding Bowel regimen swallow eval in am case discussed and evaluated by supervising physician Subjective Allergies: Coded Allergies: AUBREY INHIBITORS (Verified Allergy, Unknown, ANGIOEDEMA, 09/17/12) Subjective afebrile, no leukocytosis on RA sat stable, no signs of respiratory distress Objective Last 24 Hour Vital Signs Date Time Temp Pulse Resp B/P Pulse Ox O2 Delivery O2 Flow Rate FiO2 11/16/16 12:15 98.6 76 20 131/68 97 Room Air 11/16/16 09:00 80 77/51 11/16/16 09:00 80 77/51 11/16/16 08:15 98.1 80 21 77/51 95 Room Air 11/16/16 04:00 97.9 88 20 116/77 90 Room Air 11/16/16 00:00 98.2 79 22 109/72 89 Room Air 11/15/16 20:09 88 91/56 11/15/16 20:00 99.9 90 22 103/57 97 Room Air 11/15/16 16:00 97.6 88 19 91/56 96 11/15/16 13:33 80 118/45 Intake and Output 11/15/16 11/16/16 19:00 07:00 Intake Total 890.000 ml 367.416 ml Balance 890.000 ml 367.416 ml Intake Free Water 30 ml IV Total 830.000 ml 367.416 ml Tube Feeding 30 ml 0 ml # Voids 3 3 Objective General Appearance: no acute distress, other - awaake, alert, responsive, raspy voice HEENT: normocephalic, atraumatic, anicteric, other - left facial edema Respiratory/Chest: lungs clear, no respiratory distress, no accessory muscle use Cardiovascular: normal peripheral pulses, normal rate, no JVD, irregularly irregular Abdomen: soft, non tender, non distended, other - G tube Extremities: no edema, pedal pulses normal Neurologic/Psychiatric: alert, oriented x 3, responsive Musculoskeletal: normal muscle bulk Microbiology Date/Time Source Procedure Growth Status 11/14/16 06:00 Nasal Nares Left MRSA Culture - Final NO METHICILLIN RESISTANT STAPH AUREUS... Complete 11/14/16 06:00 Rectum VRE Culture - Final NO VANCOMYCIN RESISTANT ENTEROCOCCUS ... Complete Laboratory Tests 11/16/16 04:40: Pro-B-Type Natriuretic Peptide 2825H Current Medications Medications (Trade) Dose Ordered Sig/Yousuf Route PRN Reason Start Time Stop Time Status Last Admin Dose Admin Acetaminophen (Tylenol) 650 mg Q4H PRN ORAL fever 11/12/16 03:34 12/12/16 03:33 Al Hydroxide/Mg Hydroxide 30 ml 30 ml Q6H PRN GT dyspepsia 11/14/16 17:25 12/12/16 03:33 11/14/16 19:01 Amiodarone HCl (Cordarone) 100 mg DAILY GT 11/12/16 09:00 12/12/16 08:59 11/14/16 08:43 Amlodipine Besylate (Norvasc) 5 mg DAILY GT 11/12/16 09:00 12/12/16 08:59 11/14/16 12:49 Apixaban (Eliquis) 2.5 mg Q12HR ORAL 11/12/16 09:00 12/12/16 08:59 11/16/16 09:06 Bupropion HCl (Wellbutrin) 75 mg Q12HR GT 11/14/16 17:25 12/12/16 08:59 11/16/16 09:06 Dextrose (Dextrose 50%) STAT PRN IV Hypoglycemia 11/12/16 03:35 12/12/16 03:34 Dextrose/Sodium Chloride (D5 0.45% NS) 1,000 ml @ 75 mls/hr [id number] IV 11/16/16 09:00 12/16/16 08:59 11/16/16 10:37 Doxazosin Mesylate (Cardura) 2 mg BEDTIME GT 11/12/16 21:00 12/12/16 20:59 11/15/16 20:20 Finasteride (Proscar) 5 mg DAILY GT 11/12/16 09:00 12/12/16 08:59 11/16/16 09:07 Insulin Aspart (NovoLOG) Q6HR SUBQ 11/14/16 18:00 12/14/16 17:59 11/14/16 19:08 Levothyroxine Sodium (Synthroid) 75 mcg DAILY@0630 ORAL 11/17/16 06:30 12/17/16 06:29 Lorazepam (Ativan 2mg/ml 1ml) 0.5 mg Q4H PRN IV For Anxiety 11/12/16 03:37 11/19/16 03:36 Metoprolol Tartrate (Lopressor) 12.5 mg Q12H GT 11/12/16 09:00 12/12/16 08:59 11/14/16 08:44 Morphine Sulfate (Morphine Sulfate) 1 mg Q4H PRN IVP For Pain 11/12/16 03:30 11/19/16 03:29 Ondansetron HCl (Zofran) 4 mg Q6H PRN IVP Nausea & Vomiting 11/12/16 03:38 12/12/16 03:37 11/16/16 09:06 Piperacillin Sod/ Tazobactam Sod 3.375 gm/Dextrose 110 ml @ 27.5 mls/hr Q8HR IVPB 11/12/16 06:00 11/19/16 05:59 11/16/16 06:04 Polyethylene Glycol (Miralax) 17 gm HSPRN PRN GT Constipation 11/12/16 03:39 12/12/16 03:38 11/15/16 17:45 Valproic Acid (Depakene) 250 mg DAILY GT 11/12/16 09:00 12/12/16 08:59 11/16/16 09:07 Vancomycin HCl (Vanco rx to dose) 1 ea DAILY PRN MISC . 11/12/16 09:00 12/12/16 08:59 Vancomycin HCl/ Dextrose (Vancomycin/D5W) 275 ml @ 183.708 mls/hr Q12HR IVPB 11/12/16 09:00 11/21/16 08:59 11/16/16 10:37 Zolpidem Tartrate (Ambien) 5 mg HSPRN PRN GT Insomnia 11/14/16 17:24 12/12/16 03:33 Dario (Freddie)Lyndsay NP Nov 16, 2016 13:31
--- NOTE | 2016-11-16 13:51 | General Progress Note ---
Assessment/Plan Assessment/Plan ASSESSMENT: 1. Left-sided facial erythema, cellulitis, is on antibiotics. Continue abx. Have reviewed imaging of thyroid, does not appear change in nodules. s/p bx and now pending MRI to r/o malignancy 2. Anemia secondary to chronic disease. 3. Right lower lobe thyroid nodule 19 x 11mm, unable to get consent 4. Diabetes mellitus. 5. Atrial fibrillation. 6. Cellulitis of the face. 7. Diabetes mellitus. 8. Hypertension. 9. Psychiatric history. 10. Afib on eliquis RECOMMENDATIONS: 1. Monitor counts. 2. Transfuse to hemoglobin >7 3. MRI query head pending 4. Followup on ID, endo, Pulmonary recs, ENT recs 5. Obtain consent for FNA 6. DVT ppx with eliquis. 7. GI ppx as needed. 8. Pain control. 9. Antibiotics as needed. 10. staff Thank you, Jax Alcaraz MD Subjective Constitutional: Reports: no symptoms HEENT: Reports: no symptoms Cardiovascular: Reports: no symptoms Respiratory: Reports: no symptoms Gastrointestinal/Abdominal: Reports: poor appetite Genitourinary: Reports: no symptoms Neurologic/Psychiatric: Reports: no symptoms Endocrine: Reports: no symptoms Hematologic/Lymphatic: Reports: anemia Allergies: Coded Allergies: AUBREY INHIBITORS (Verified Allergy, Unknown, ANGIOEDEMA, 09/17/12) Subjective stable, without bleeding, no night sweats, face has improved Objective Last 24 Hour Vital Signs Date Time Temp Pulse Resp B/P Pulse Ox O2 Delivery O2 Flow Rate FiO2 11/16/16 12:15 98.6 76 20 131/68 97 Room Air 11/16/16 09:00 80 77/51 11/16/16 09:00 80 77/51 11/16/16 08:15 98.1 80 21 77/51 95 Room Air 11/16/16 04:00 97.9 88 20 116/77 90 Room Air 11/16/16 00:00 98.2 79 22 109/72 89 Room Air 11/15/16 20:09 88 91/56 11/15/16 20:00 99.9 90 22 103/57 97 Room Air 11/15/16 16:00 97.6 88 19 91/56 96 Intake and Output 11/15/16 11/16/16 19:00 07:00 Intake Total 890.000 ml 367.416 ml Balance 890.000 ml 367.416 ml Intake Free Water 30 ml IV Total 830.000 ml 367.416 ml Tube Feeding 30 ml 0 ml # Voids 3 3 Laboratory Tests 11/16/16 04:40: Pro-B-Type Natriuretic Peptide 2825H Height (Feet): 5 Height (Inches): 9.00 Weight (Pounds): 170 General Appearance: no apparent distress EENT: normal ENT inspection Neck: supple Cardiovascular: regular rhythm Respiratory/Chest: lungs clear Abdomen: non tender Extremities: normal range of motion Edema: 1+ Leg (L), 1+ Leg (R) Edema: mild edema Neurologic: oriented x 3 Skin: warm/dry Jax Alcaraz Nov 16, 2016 13:51
[2016-11-16] MEDS ORDERED: Metoclopramide 10mg/2ml Inj IVP PRN (14:45)
--- NOTE | 2016-11-16 14:48 | General Surgery Progress Note ---
General Surgery-Progress Note Objective Last 24 Hour Vital Signs Date Time Temp Pulse Resp B/P Pulse Ox O2 Delivery O2 Flow Rate FiO2 11/16/16 12:15 98.6 76 20 131/68 97 Room Air 11/16/16 09:00 80 77/51 11/16/16 09:00 80 77/51 11/16/16 08:15 98.1 80 21 77/51 95 Room Air 11/16/16 04:00 97.9 88 20 116/77 90 Room Air 11/16/16 00:00 98.2 79 22 109/72 89 Room Air 11/15/16 20:09 88 91/56 11/15/16 20:00 99.9 90 22 103/57 97 Room Air 11/15/16 16:00 97.6 88 19 91/56 96 I&O Intake and Output 11/15/16 11/16/16 19:00 07:00 Intake Total 890.000 ml 367.416 ml Balance 890.000 ml 367.416 ml Intake Free Water 30 ml IV Total 830.000 ml 367.416 ml Tube Feeding 30 ml 0 ml # Voids 3 3 Respiratory: clear Abdomen: soft, flat, non-tender, present bowel sounds Extremities: no tenderness Laboratory Tests Test 11/16/16 04:40 Pro-B-Type Natriuretic Peptide 2825 pg/mL (0-450) H Assessment Additional Comments Ileus Plan Additional Comments Reglan and dulcolax , if not effective will obtain small bowel follow thru AURELIA ROGERS Nov 16, 2016 14:48
[2016-11-16 16:04] VITALS: BP 92/42
[2016-11-16 20:00] VITALS: BP 117/68
--- NOTE | 2016-11-16 20:15 | Infectious Diseases Prog Note ---
Assessment/Plan Problems: (1) Cellulitis and abscess of face Assessment & Plan: improving on zosyn and vancomycin empirically , CT scan of the sinuses showed soft tissue swelling, and no abscess, can't do an MRI of the head with contrast to rule out any soft tissue abscess or infiltration since he has pacemaker. ENT is following (2) Cellulitis Assessment & Plan: of the neck , CT scan showed cellulitis and right lower thyroids pole mass S/P biopsy with pathology is pending , continue zosyn and vancomycin . (3) Sepsis Assessment & Plan: less likely with negative blood culture . (4) Diabetes Assessment & Plan: recommend tight glycemic control to keep blood glucose between 80-120 (5) HTN (hypertension) Assessment & Plan: continue meds to keep SBP <140 (6) Thyroid mass of unclear etiology Assessment & Plan: had US and FNA biopsy , pathology is pending , endocrinology is following Subjective Constitutional: Denies: anorexia, chills, drenching sweats, fatigue, fever, no symptoms, other HEENT: Denies: congestion, coryza, dysphagia, hearing change, no symptoms, other, visual change Respiratory: Denies: dry cough, no symptoms, other, productive cough, shortness of breath Breasts: Denies: discharge, no symptoms, other, swelling, tenderness Cardiovascular: Denies: chest pain, dyspnea on exertion, no symptoms, other, palpitations Gastrointestinal/Abdominal: Denies: bloating, blood in stool, constipation, diarrhea, nausea, no symptoms, other, vomiting Genitourinary: Denies: dysuria, frequency, hematuria, no symptoms, nocturia, other Neurologic: Denies: confusion, headache, no symptoms, numbness, other, weakness Psychiatric: Denies: anxiety, depression, no symptoms, other Skin: Denies: no symptoms, other, rash, ulcer Endocrine: Denies: feels cold, feels warm, no symptoms, other Allergies: Coded Allergies: AUBREY INHIBITORS (Verified Allergy, Unknown, ANGIOEDEMA, 09/17/12) Objective Vital Signs Last 24 Hour Vital Signs Date Time Temp Pulse Resp B/P Pulse Ox O2 Delivery O2 Flow Rate FiO2 11/16/16 20:00 97.9 18 117/68 95 Room Air 11/16/16 16:04 97.7 64 20 92/42 95 Room Air 11/16/16 12:15 98.6 76 20 131/68 97 Room Air 11/16/16 09:00 80 77/51 11/16/16 09:00 80 77/51 11/16/16 08:15 98.1 80 21 77/51 95 Room Air 11/16/16 04:00 97.9 88 20 116/77 90 Room Air 11/16/16 00:00 98.2 79 22 109/72 89 Room Air Height (Feet): 5 Height (Inches): 9.00 Weight (Pounds): 170 General Appearance: WD/WN, no acute distress HEENT: atraumatic, anicteric, mucous membranes moist, PERRL Respiratory/Chest: chest wall non-tender, lungs clear, normal breath sounds, no respiratory distress, no accessory muscle use Cardiovascular: normal peripheral pulses, normal rate, regular rhythm, no gallop/murmur, no JVD Abdomen: normal bowel sounds, soft, non tender, no organomegaly, non distended , no mass, no scars Extremities: no cyanosis, no clubbing Skin: no rash, no lesions Microbiology Date/Time Source Procedure Growth Status 11/14/16 06:00 Nasal Nares Left MRSA Culture - Final NO METHICILLIN RESISTANT STAPH AUREUS... Complete 11/14/16 06:00 Rectum VRE Culture - Final NO VANCOMYCIN RESISTANT ENTEROCOCCUS ... Complete Laboratory Tests Test 11/16/16 04:40 Pro-B-Type Natriuretic Peptide 2825 pg/mL (0-450) H Current Medications Medications (Trade) Dose Ordered Sig/Yousuf Route PRN Reason Start Time Stop Time Status Last Admin Dose Admin Acetaminophen (Tylenol) 650 mg Q4H PRN ORAL fever 11/12/16 03:34 12/12/16 03:33 Al Hydroxide/Mg Hydroxide 30 ml 30 ml Q6H PRN GT dyspepsia 11/14/16 17:25 12/12/16 03:33 11/14/16 19:01 Amiodarone HCl (Cordarone) 100 mg DAILY GT 11/12/16 09:00 12/12/16 08:59 11/14/16 08:43 Amlodipine Besylate (Norvasc) 5 mg DAILY GT 11/12/16 09:00 12/12/16 08:59 11/14/16 12:49 Apixaban (Eliquis) 2.5 mg Q12HR ORAL 11/12/16 09:00 3/3/17 08:59 11/16/16 09:06 Bupropion HCl (Wellbutrin) 75 mg Q12HR GT 11/14/16 17:25 12/12/16 08:59 11/16/16 09:06 Dextrose (Dextrose 50%) STAT PRN IV Hypoglycemia 11/12/16 03:35 12/12/16 03:34 Dextrose/Sodium Chloride (D5 0.45% NS) 1,000 ml @ 75 mls/hr [id number] IV 11/16/16 09:00 12/16/16 08:59 11/16/16 10:37 Doxazosin Mesylate (Cardura) 2 mg BEDTIME GT 11/12/16 21:00 12/12/16 20:59 11/15/16 20:20 Finasteride (Proscar) 5 mg DAILY GT 11/12/16 09:00 12/12/16 08:59 11/16/16 09:07 Insulin Aspart (NovoLOG) Q6HR SUBQ 11/14/16 18:00 12/14/16 17:59 11/14/16 19:08 Levothyroxine Sodium (Synthroid) 75 mcg DAILY@0630 ORAL 11/17/16 06:30 12/17/16 06:29 Lorazepam (Ativan 2mg/ml 1ml) 0.5 mg Q4H PRN IV For Anxiety 11/12/16 03:37 11/19/16 03:36 Metoclopramide HCl (Reglan) 10 mg Q8H PRN IVP Nausea & Vomiting 11/16/16 14:45 12/16/16 14:44 Metoprolol Tartrate (Lopressor) 12.5 mg Q12H GT 11/12/16 09:00 12/12/16 08:59 11/14/16 08:44 Morphine Sulfate (Morphine Sulfate) 1 mg Q4H PRN IVP For Pain 11/12/16 03:30 11/19/16 03:29 Ondansetron HCl (Zofran) 4 mg Q6H PRN IVP Nausea & Vomiting 11/12/16 03:38 12/12/16 03:37 11/16/16 09:06 Piperacillin Sod/ Tazobactam Sod 3.375 gm/Dextrose 110 ml @ 27.5 mls/hr Q8HR IVPB 11/12/16 06:00 11/19/16 05:59 11/16/16 13:52 Polyethylene Glycol (Miralax) 17 gm HSPRN PRN GT Constipation 11/12/16 03:39 12/12/16 03:38 11/15/16 17:45 Valproic Acid (Depakene) 250 mg DAILY GT 11/12/16 09:00 12/12/16 08:59 11/16/16 09:07 Vancomycin HCl (Vanco rx to dose) 1 ea DAILY PRN MISC . 11/12/16 09:00 12/12/16 08:59 Vancomycin HCl/ Dextrose (Vancomycin/D5W) 275 ml @ 183.708 mls/hr Q12HR IVPB 11/12/16 09:00 11/21/16 08:59 11/16/16 10:37 Zolpidem Tartrate (Ambien) 5 mg HSPRN PRN GT Insomnia 11/14/16 17:24 12/12/16 03:33 Aida Frederick M.D. Nov 16, 2016 20:15
--- NOTE | 2016-11-16 20:18 | Consultation ---
DATE OF CONSULTATION: 11/16/2016 REASON FOR CONSULTATION: Vomiting, rule out bowel obstruction. REQUESTING PHYSICIAN: Laina Pereira M.D. HISTORY OF PRESENT ILLNESS: This is a 76-year-old male with dementia and multiple medical problems, who has been admitted for cellulitis of the left side of the face. The patient has been on IV antibiotic and under observation since 11/10/2016 but yesterday which was 11/15/2016 the patient started vomiting. He claimed that he has not had any bowel movement for about seven days. Apparently he has been passing flatus, but no BM. He denied any abdominal pain. He stated that yesterday he had discomfort and but today he is pain free. He denied any fever, cough, dysuria, or frequency. The patient has PEG in place and he has been vomiting the feeding. Gastrostomy tube had been placed on suction which has suctioned out large amount of bilious fluid. KUB has been obtained which has shown gas in the small and large bowel. I had been asked for consultation to rule out obstruction. PAST MEDICAL HISTORY: Apparently, the patient is allergic to AUBREY inhibitors. He denies asthma but he has a history of respiratory failure. He denies renal diseases. He has a history of diabetes, hypertension, atrial fibrillation, CVA, and dementia. He has a history of cancer of the scalp. PAST SURGICAL HISTORY: Include placement of pacemaker, tracheostomy which has been removed, and PEG besides has a scar of the midline incision above the umbilicus which he cannot explain what it had been for and he has had an extensive surgery probably the throat which has been followed with radiation. MEDICATIONS: He is on multiple medications Please see the medicine reconciliation form. SOCIAL HISTORY: [facility] a [facility] Denies smoking or drinking. He is 76-year-old. PHYSICAL EXAMINATION: GENERAL: The patient appeared to be a well-developed and well-nourished pleasant 76-year-old male, lying on the bed, in no acute distress. HEENT: Head: He has large scarring on the scalp which he claims to be due to the cancer of the scalp. Eyes, pupils are equal, round, and reactive. Mouth is completely edentulous. NECK: There is no palpable thyromegaly or adenopathy but the upper neck under the mandible is very hard, obviously this due to the radiation. CHEST: Clear to auscultation. He has a scar of the pacemaker on the left side. HEART: There is no gallop but he has a harsh murmur best heard at the pericardial area. S1 and S2 are within normal limits. ABDOMEN: Soft, flat, nontender. There is no palpable organomegaly. Bowel sounds are audible. He has a scar of the midline incision above the umbilicus. He has a gastrostomy protruding from the left upper quadrant. GENITAL: Within normal limits. He does not have hernia. EXTREMITIES: Within normal limits. LABORATORY AND DIAGNOSTIC DATA: CBC and chemistry panel within normal limits. KUB has been obtained which shows large amount of air in the small and large bowel and even the stomach. ASSESSMENT: Paralytic ileus. RECOMMENDATION: At this time, the patient requires to be NPO. I have taken the liberty of ordering Reglan and even Dulcolax. If this regimen was ineffective, I will order Gastrografin small bowel followthrough. Thank you, Dr. Pereira, for asking me to participate in the management of this patient. Jayna Chavez M.D. DR: Shira JOB#: [id number] CC: SANDEEP
[2016-11-16] MEDS: Doxazosin 1mg Tab GT SCH (20:39)
[2016-11-17] VITALS: BP 121/73
[2016-11-17] MEDS: NovoLOG Insulin Flexpen SUBQ SCH ×4 (06:00→18:00)
[2016-11-17] MEDS: Piperacillin/Tazobactam 3.375 GM in D5W 110 ML IVPB SCH ×3 (06:09→21:22)
[2016-11-17 08:00] VITALS: BP 97/59
--- NOTE | 2016-11-17 08:04 | General Progress Note ---
Assessment/Plan Problem List: (1) Hypothyroidism ICD Codes: E03.9 - Hypothyroidism, unspecified SNOMED: 10621349 (2) Swelling of left side of face ICD Codes: R22.0 - Localized swelling, mass and lump, head SNOMED: 076548028 (3) Cellulitis and abscess of face ICD Codes: L03.211 - Cellulitis of face; L02.01 - Cutaneous abscess of face SNOMED: 372926746 (4) PEG (percutaneous endoscopic gastrostomy) adjustment/replacement/removal ICD Codes: Z43.1 - Encounter for attention to gastrostomy SNOMED: 569377030 (5) Dysphagia ICD Codes: R13.10 - Dysphagia SNOMED: 44557540 (6) History of respiratory failure ICD Codes: Z87.09 - History of respiratory failure SNOMED: 256898545 (7) History of CVA (cerebrovascular accident) ICD Codes: Z86.73 - History of CVA (cerebrovascular accident) SNOMED: 004791208 (8) Thyroid mass of unclear etiology ICD Codes: E07.89 - Other specified disorders of thyroid SNOMED: 711585898 (9) Diabetes ICD Codes: E11.9 - Diabetes SNOMED: 18245229 Assessment/Plan FNA of thyroid mass ordered - can't be done due to lack of consent Levothyroxine dosage increased to 75 mcg daily TSH should be repeated in 3-4 weeks for further dosage adjustment glucose values are well controlled continue blood glucose monitoring and Novolog coverage Subjective ROS Limited/Unobtainable: Yes Allergies: Coded Allergies: AUBREY INHIBITORS (Verified Allergy, Unknown, ANGIOEDEMA, 09/17/12) Subjective events noted - interval notes reviewed Objective Last 24 Hour Vital Signs Date Time Temp Pulse Resp B/P Pulse Ox O2 Delivery O2 Flow Rate FiO2 11/17/16 00:00 97.2 73 17 121/73 96 Room Air 11/16/16 20:39 64 117/68 11/16/16 20:00 97.9 18 117/68 95 Room Air 11/16/16 16:04 97.7 64 20 92/42 95 Room Air 11/16/16 12:15 98.6 76 20 131/68 97 Room Air 11/16/16 09:00 80 77/51 11/16/16 09:00 80 77/51 11/16/16 08:15 98.1 80 21 77/51 95 Room Air Intake and Output 11/16/16 11/17/16 19:00 07:00 Intake Total 1252.416 ml 442.416 ml Output Total 400 ml 675 ml Balance 852.416 ml -232.584 ml Intake Free Water 100 ml IV Total 1152.416 ml 442.416 ml Output Urine Total 375 ml Other 400 ml 300 ml # Bowel Movements 2 Height (Feet): 5 Height (Inches): 9.00 Weight (Pounds): 170 General Appearance: lethargic Neck: normal alignment Cardiovascular: irregularly irregular Respiratory/Chest: decreased breath sounds Abdomen: normal bowel sounds Objective Current Medications Medications (Trade) Dose Ordered Sig/Yousuf Route PRN Reason Start Time Stop Time Status Last Admin Dose Admin Acetaminophen (Tylenol) 650 mg Q4H PRN ORAL fever 11/12/16 03:34 12/12/16 03:33 Al Hydroxide/Mg Hydroxide (Mylanta II) 30 ml Q6H PRN GT dyspepsia 11/14/16 17:25 12/12/16 03:33 11/14/16 19:01 Amiodarone HCl (Cordarone) 100 mg DAILY GT 11/12/16 09:00 12/12/16 08:59 11/14/16 08:43 Amlodipine Besylate (Norvasc) 5 mg DAILY GT 11/12/16 09:00 12/12/16 08:59 11/14/16 12:49 Apixaban (Eliquis) 2.5 mg Q12HR ORAL 11/12/16 09:00 12/12/16 08:59 11/15/16 20:20 Bupropion HCl (Wellbutrin) 75 mg Q12HR GT 11/14/16 17:25 12/12/16 08:59 11/15/16 20:20 Dextrose (Dextrose 50%) STAT PRN IV Hypoglycemia 11/12/16 03:35 12/12/16 03:34 Doxazosin Mesylate (Cardura) 2 mg BEDTIME GT 11/12/16 21:00 12/12/16 20:59 11/15/16 20:20 Finasteride (Proscar) 5 mg DAILY GT 11/12/16 09:00 12/12/16 08:59 11/15/16 08:46 Insulin Aspart (NovoLOG) Q6HR SUBQ 11/14/16 18:00 12/14/16 17:59 11/14/16 19:08 Levothyroxine Sodium (Synthroid) 25 mcg DAILY@0630 ORAL 11/15/16 06:30 12/15/16 06:29 11/16/16 06:27 Lorazepam (Ativan 2mg/ml 1ml) 0.5 mg Q4H PRN IV For Anxiety 11/12/16 03:37 11/19/16 03:36 Metoprolol Tartrate (Lopressor) 12.5 mg Q12H GT 11/12/16 09:00 12/12/16 08:59 11/14/16 08:44 Morphine Sulfate (Morphine Sulfate) 1 mg Q4H PRN IVP For Pain 11/12/16 03:30 11/19/16 03:29 Ondansetron HCl (Zofran) 4 mg Q6H PRN IVP Nausea & Vomiting 11/12/16 03:38 12/12/16 03:37 11/16/16 02:38 Piperacillin Sod/ Tazobactam Sod 3.375 gm/Dextrose 110 ml @ 27.5 mls/hr Q8HR IVPB 11/12/16 06:00 11/19/16 05:59 11/16/16 06:04 Polyethylene Glycol (Miralax) 17 gm HSPRN PRN GT Constipation 11/12/16 03:39 12/12/16 03:38 11/15/16 17:45 Valproic Acid (Depakene) 250 mg DAILY GT 11/12/16 09:00 12/12/16 08:59 11/15/16 08:45 Vancomycin HCl (Vanco rx to dose) 1 ea DAILY PRN MISC . 11/12/16 09:00 12/12/16 08:59 Vancomycin HCl/ Dextrose (Vancomycin/D5W) 275 ml @ 183.708 mls/hr Q12HR IVPB 11/12/16 09:00 11/17/16 08:59 11/15/16 20:21 Zolpidem Tartrate (Ambien) 5 mg HSPRN PRN GT Insomnia 11/14/16 17:24 12/12/16 03:33 Item Value Date Time Bedside Blood Glucose 92 mg/dl 11/16/16 0600 Bedside Blood Glucose 92 mg/dl 11/16/16 0000 Bedside Blood Glucose 95 mg/dl 11/15/16 1722 Bedside Blood Glucose 113 mg/dl 11/15/16 1203 Bedside Blood Glucose 83 mg/dl 11/15/16 0600 BETTY GERMAIN Nov 17, 2016 08:04
[2016-11-17] MEDS: Metoprolol Tartrate 12.5mg TAB GT SCH ×2 (08:40→21:00)
[2016-11-17] MEDS: Amiodarone 200mg tab GT SCH (08:40)
--- NOTE | 2016-11-17 09:18 | General Progress Note ---
Progress Note Progress Note ENT S. left facial swelling is down per pt O: Left side of face swelling reduced 90% from initial consult Neck: no palpable nodes A: 1. Left facial swelling has responded to antibiotics-complete course 2. Thyroid nodule-unchanged from 2012 on AGUSTINA as noted in earlier notes 3. 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 Face-complete antibiotics-re consult me as needed 2. Thyroid nodule-suggest repeat AGUSTINA in 6-12 months-no indication it has grown in 5 year 3. Scalp cancer-I believe the Oncologist is tracking down past history of scalp cancer. If he is not taking charge of that, let me know. Please have social service see if they can track down previous skin cancer records. 4. Reconsult me CONI SORENSEN Nov 17, 2016 09:18
[2016-11-17] MEDS: BuPROPion 75mg Tab GT SCH ×2 (09:22→21:23)
[2016-11-17] MEDS: Eliquis 2.5mg tablet ORAL SCH ×2 (09:23→21:23)
[2016-11-17] MEDS: Valproic Acid 250mg/5ml Liquid GT SCH (09:23)
--- NOTE | 2016-11-17 11:24 | General Progress Note ---
Assessment/Plan Assessment/Plan Assessment - SBO vs ileus - Facial cellulitis - Anemia - s/p PEG - a fib - DM - HN Recommendations - NPO - IVF - GT --> LIS - follow exam and labs - surgical f/u Subjective Allergies: Coded Allergies: AUBREY INHIBITORS (Verified Allergy, Unknown, ANGIOEDEMA, 09/17/12) Subjective Feels better smiling less abdominal discomfort Objective Last 24 Hour Vital Signs Date Time Temp Pulse Resp B/P Pulse Ox O2 Delivery O2 Flow Rate FiO2 11/17/16 08:40 67 97/59 11/17/16 08:40 67 97/59 11/17/16 08:00 97.7 67 20 97/59 96 Room Air 11/17/16 00:00 97.2 73 17 121/73 96 Room Air 11/16/16 20:39 64 117/68 11/16/16 20:00 97.9 18 117/68 95 Room Air 11/16/16 16:04 97.7 64 20 92/42 95 Room Air 11/16/16 12:15 98.6 76 20 131/68 97 Room Air Intake and Output 11/16/16 11/17/16 19:00 07:00 Intake Total 1252.416 ml 442.416 ml Output Total 400 ml 675 ml Balance 852.416 ml -232.584 ml Intake Free Water 100 ml IV Total 1152.416 ml 442.416 ml Output Urine Total 375 ml Other 400 ml 300 ml # Bowel Movements 2 Laboratory Tests 11/17/16 08:08: Vancomycin Level Trough 54.8H Height (Feet): 5 Height (Inches): 9.00 Weight (Pounds): 170 Objective debilitated WM (+) neck scar CTA RR abd softer and less distended today, (+) GT to gravity no edema WILLIS AMADO Nov 17, 2016 11:24
--- NOTE | 2016-11-17 11:32 | General Progress Note ---
Assessment/Plan Problem List: (1) History of CVA (cerebrovascular accident) ICD Codes: Z86.73 - History of CVA (cerebrovascular accident) SNOMED: 223901807 (2) History of respiratory failure ICD Codes: Z87.09 - History of respiratory failure SNOMED: 269785847 (3) Dysphagia ICD Codes: R13.10 - Dysphagia SNOMED: 31321165 (4) PEG (percutaneous endoscopic gastrostomy) adjustment/replacement/removal ICD Codes: Z43.1 - Encounter for attention to gastrostomy SNOMED: 451745993 (5) Cellulitis and abscess of face ICD Codes: L03.211 - Cellulitis of face; L02.01 - Cutaneous abscess of face SNOMED: 057964548 (6) Swelling of left side of face ICD Codes: R22.0 - Localized swelling, mass and lump, head SNOMED: 521728944 (7) Diabetes ICD Codes: E11.9 - Diabetes SNOMED: 18142836 (8) HTN (hypertension) ICD Codes: I10 - HTN (hypertension) SNOMED: 47422620 (9) Sepsis ICD Codes: A41.9 - Sepsis SNOMED: 89385857 (10) Thyroid mass of unclear etiology ICD Codes: E07.89 - Other specified disorders of thyroid SNOMED: 246980022 Status: progressing Assessment/Plan afebrile celluitis of face has sbo consulted dr munoz re sbo consulted dr swann Subjective ROS Limited/Unobtainable: Yes Constitutional: Reports: no symptoms Allergies: Coded Allergies: AUBREY INHIBITORS (Verified Allergy, Unknown, ANGIOEDEMA, 09/17/12) Objective Last 24 Hour Vital Signs Date Time Temp Pulse Resp B/P Pulse Ox O2 Delivery O2 Flow Rate FiO2 11/17/16 08:40 67 97/59 11/17/16 08:40 67 97/59 11/17/16 08:00 97.7 67 20 97/59 96 Room Air 11/17/16 00:00 97.2 73 17 121/73 96 Room Air 11/16/16 20:39 64 117/68 11/16/16 20:00 97.9 18 117/68 95 Room Air 11/16/16 16:04 97.7 64 20 92/42 95 Room Air 11/16/16 12:15 98.6 76 20 131/68 97 Room Air Intake and Output 2/5/17 2/6/17 19:00 07:00 Intake Total 1252.416 ml 442.416 ml Output Total 400 ml 675 ml Balance 852.416 ml -232.584 ml Intake Free Water 100 ml IV Total 1152.416 ml 442.416 ml Output Urine Total 375 ml Other 400 ml 300 ml # Bowel Movements 2 Laboratory Tests 11/17/16 08:08: Vancomycin Level Trough 54.8H Height (Feet): 5 Height (Inches): 9.00 Weight (Pounds): 170 Cardiovascular: normal rate Respiratory/Chest: lungs clear Abdomen: soft Laina Pereira MD Nov 17, 2016 11:32
[2016-11-17 11:52] VITALS: BP 104/64
--- NOTE | 2016-11-17 12:42 | General Progress Note ---
Assessment/Plan Assessment/Plan ASSESSMENT: 1. Left-sided facial erythema, cellulitis, is on antibiotics. Continue abx. Have reviewed imaging of thyroid, does not appear change in nodules. 2. Anemia secondary to chronic disease. 3. Right lower lobe thyroid nodule 19 x 11mm, s/p fna:benign 4. Diabetes mellitus. 5. Atrial fibrillation. 6. Cellulitis of the face. 7. Diabetes mellitus. 8. Hypertension. 9. Psychiatric history. 10. Afib on eliquis RECOMMENDATIONS: 1. Monitor counts. 2. Transfuse to hgb >7 3. MRI query head pending 4. Followup on ID, endo, Pulmonary recs, ENT recs 5. Reviewed pathology of thyroid - benign 6. DVT ppx with eliquis. 7. GI ppx as needed. 8. Pain control. 9. Antibiotics as needed. 10. staff Thank you, Jax Alcaraz MD Subjective Constitutional: Reports: no symptoms HEENT: Reports: no symptoms Cardiovascular: Reports: no symptoms Respiratory: Reports: no symptoms Gastrointestinal/Abdominal: Reports: poor appetite Genitourinary: Reports: no symptoms Neurologic/Psychiatric: Reports: no symptoms Endocrine: Reports: no symptoms Hematologic/Lymphatic: Reports: anemia Allergies: Coded Allergies: AUBREY INHIBITORS (Verified Allergy, Unknown, ANGIOEDEMA, 09/17/12) Subjective stable, without bleeding, no night sweats, face better Objective Last 24 Hour Vital Signs Date Time Temp Pulse Resp B/P Pulse Ox O2 Delivery O2 Flow Rate FiO2 11/17/16 11:52 97.5 60 18 104/64 90 Room Air 11/17/16 08:40 67 97/59 11/17/16 08:40 67 97/59 11/17/16 08:00 97.7 67 20 97/59 96 Room Air 11/17/16 00:00 97.2 73 17 121/73 96 Room Air 11/16/16 20:39 64 117/68 11/16/16 20:00 97.9 18 117/68 95 Room Air 11/16/16 16:04 97.7 64 20 92/42 95 Room Air Intake and Output 11/16/16 11/17/16 19:00 07:00 Intake Total 1252.416 ml 442.416 ml Output Total 400 ml 675 ml Balance 852.416 ml -232.584 ml Intake Free Water 100 ml IV Total 1152.416 ml 442.416 ml Output Urine Total 375 ml Other 400 ml 300 ml # Bowel Movements 2 Laboratory Tests 11/17/16 08:08: Vancomycin Level Trough 54.8H Height (Feet): 5 Height (Inches): 9.00 Weight (Pounds): 170 General Appearance: no apparent distress EENT: TMs normal Neck: normal alignment Cardiovascular: regular rhythm Respiratory/Chest: lungs clear Abdomen: no mass Extremities: non-tender Edema: 1+ Leg (L), 1+ Leg (R) Edema: trace edema Neurologic: alert Skin: warm/dry Jax Alcaraz Nov 17, 2016 12:42
[2016-11-17] MEDS: D5 1/2NS 1,000 ML IV SCH (13:33)
[2016-11-17 16:00] VITALS: BP 136/59
--- NOTE | 2016-11-17 16:18 | Consultation ---
DATE OF CONSULTATION: 11/16/2016 GASTROENTEROLOGY CONSULTATION CHIEF COMPLAINT: I was asked to see this patient by Dr. Laina Pereira today for evaluation of vomiting. HISTORY OF PRESENT ILLNESS: The patient is a debilitated 76-year-old white male with multiple medical problems who was in the hospital due to congestive heart failure, hypertension, and also infection of his face. Today and overnight, he was found to have profuse bouts of nausea and vomiting; therefore this consultation was generated. The patient has a gastrostomy tube for long-term enteral access and feeding. He is unable to speak clearly and therefore most information is only available from the chart. PAST MEDICAL HISTORY: History of hypertension, congestive heart failure, pacemaker placement, atrial fibrillation, mood disorder, diabetes, history of throat cancer status gastrostomy tube placement, status post multiple other abdominal surgeries based on the scars observed of unclear nature. MEDICATIONS: Please see the chart for details. SOCIAL HISTORY: The patient lives in the [facility]. No further social history is available in this patient at this time. FAMILY HISTORY: Noncontributory. REVIEW OF SYSTEMS: Unobtainable. PHYSICAL EXAMINATION: GENERAL: Debilitated elderly white man seen in his room. He was vomiting with a bucket . HEENT: Normocephalic and atraumatic. Sclerae anicteric. Lower jaw area showed some evidence of cellulitis which is being treated with antibiotics. NECK: Evidence of old scars from prior surgeries. CHEST: Scattered rhonchi. CARDIOVASCULAR: Regular rate. ABDOMEN: Soft but distended. Gastrostomy tube in good position. EXTREMITIES: No edema. LABORATORY DATA: Noted. ASSESSMENT: This patient has distended abdomen which is tender and the patient is vomiting which is suspicious of bowel obstruction. Based on the scars on his abdomen he may have adhesions from previous surgeries and that could result in bowel obstruction. I will tell the nursing staff to place the gastrostomy tube to low intermittent suction and a KUB will be ordered. He should be kept NPO with intravenous fluid should be given. I will also call behavioral consultant to see the patient and to follow up him through his course of disease. Further recommendations will be based on the above findings. RECOMMENDATIONS: 1. Keep the patient NPO. 2. Gastrostomy to suction. 3. IV fluids. 4. Check KUB. 5. Surgical consultation. 6. Follow laboratory parameters and exam. Thank you for asking me to participate in care this patient. Ruel Macdonald M.D. DR: Tao JOB#: [id number] CC:
[2016-11-17] MEDS ORDERED: NS 550ML IV ONE (16:24)
--- NOTE | 2016-11-17 16:27 | Cardiac Electrophysiology PN ---
Assessment/Plan Assessment/Plan 1. Status post [facility] [place] permanent pacemaker implantation in 2012. Interrogated and showed normal function 2. Paroxysmal atrial fibrillation, currently in sinus rhythm, on amiodarone 100 mg daily and Eliquis 2.5 mg twice a day for anticoagulation. 3. Episode of hypotension. I will discontinue Norvasc and increase metoprolol to 25 bid. Echocardiogram pending. 4. Hypothyroidism, on Synthroid under management of Dr. Chairez. 5. Left facial cellulitis improving on zosyn and vancomycin empirically , CT scan of the sinuses showed soft tissue swelling, and no abscess 6. Dysphagia, status post gastrostomy tube. 7. Diabetes. YECENIA RN Subjective Subjective DOing better. ICD was interrogated and showed normal function. Objective Last 24 Hour Vital Signs Date Time Temp Pulse Resp B/P Pulse Ox O2 Delivery O2 Flow Rate FiO2 11/17/16 11:52 97.5 60 18 104/64 90 Room Air 11/17/16 08:40 67 97/59 11/17/16 08:40 67 97/59 11/17/16 08:00 97.7 67 20 97/59 96 Room Air 11/17/16 00:00 97.2 73 17 121/73 96 Room Air 11/16/16 20:39 64 117/68 11/16/16 20:00 97.9 18 117/68 95 Room Air Intake and Output 11/16/16 11/17/16 19:00 07:00 Intake Total 1252.416 ml 442.416 ml Output Total 400 ml 675 ml Balance 852.416 ml -232.584 ml Intake Free Water 100 ml IV Total 1152.416 ml 442.416 ml Output Urine Total 375 ml Other 400 ml 300 ml # Bowel Movements 2 Laboratory Tests Test 11/17/16 08:08 Vancomycin Level Trough 54.8 ug/mL (5.0-12.0) H Objective Neck: normal alignment Cardiovascular: regular rhythm. Pacer left subclavian. Respiratory/Chest: lungs clear Abdomen: no mass Extremities: non-tender Neurologic: alert Skin: warm/dry HILDA MEJIA Nov 17, 2016 16:27
--- NOTE | 2016-11-17 17:03 | Pulmonology Progress Note ---
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 Subjective ROS Limited/Unobtainable: Yes Constitutional: Reports: chills, fatigue Respiratory: Reports: dyspnea at rest, pleuritic pain, productive cough, shortness of breath, sputum, wheezing Allergies: Coded Allergies: AUBREY INHIBITORS (Verified Allergy, Unknown, ANGIOEDEMA, 09/17/12) Objective Last 24 Hour Vital Signs Date Time Temp Pulse Resp B/P Pulse Ox O2 Delivery O2 Flow Rate FiO2 11/17/16 11:52 97.5 60 18 104/64 90 Room Air 11/17/16 08:40 67 97/59 11/17/16 08:40 67 97/59 11/17/16 08:00 97.7 67 20 97/59 96 Room Air 11/17/16 00:00 97.2 73 17 121/73 96 Room Air 11/16/16 20:39 64 117/68 11/16/16 20:00 97.9 18 117/68 95 Room Air Intake and Output 11/16/16 11/17/16 19:00 07:00 Intake Total 1252.416 ml 442.416 ml Output Total 400 ml 675 ml Balance 852.416 ml -232.584 ml Intake Free Water 100 ml IV Total 1152.416 ml 442.416 ml Output Urine Total 375 ml Other 400 ml 300 ml # Bowel Movements 2 General Appearance: no acute distress HEENT: normocephalic, atraumatic, anicteric, PERRL Respiratory/Chest: chest wall non-tender, decreased breath sounds, accessory muscle use, crackles/rales, rhonchi Cardiovascular: normal peripheral pulses, normal rate, regular rhythm Abdomen: normal bowel sounds, soft, non tender, no organomegaly, non distended Genitourinary: normal external genitalia Extremities: no cyanosis Skin: rash, lesions Neurologic/Psychiatric: responsive, abnormal CN, disoriented Laboratory Tests 11/17/16 08:08: Vancomycin Level Trough 54.8H Current Medications Medications (Trade) Dose Ordered Sig/Yousuf Route PRN Reason Start Time Stop Time Status Last Admin Dose Admin Acetaminophen (Tylenol) 650 mg Q4H PRN ORAL fever 11/12/16 03:34 12/12/16 03:33 Al Hydroxide/Mg Hydroxide 30 ml 30 ml Q6H PRN GT dyspepsia 11/14/16 17:25 12/12/16 03:33 11/14/16 19:01 Amiodarone HCl (Cordarone) 100 mg DAILY GT 11/12/16 09:00 12/12/16 08:59 11/14/16 08:43 Apixaban (Eliquis) 2.5 mg Q12HR ORAL 11/12/16 09:00 12/12/16 08:59 11/17/16 09:23 Bupropion HCl (Wellbutrin) 75 mg Q12HR GT 11/14/16 17:25 12/12/16 08:59 11/17/16 09:22 Dextrose (Dextrose 50%) STAT PRN IV Hypoglycemia 11/12/16 03:35 12/12/16 03:34 Dextrose/Sodium Chloride (D5 0.45% NS) 1,000 ml @ 75 mls/hr [id number] IV 11/16/16 09:00 12/16/16 08:59 11/17/16 13:33 Doxazosin Mesylate (Cardura) 2 mg BEDTIME GT 11/12/16 21:00 12/12/16 20:59 11/16/16 20:39 Finasteride (Proscar) 5 mg DAILY GT 11/12/16 09:00 12/12/16 08:59 11/17/16 09:23 Insulin Aspart (NovoLOG) Q6HR SUBQ 11/14/16 18:00 12/14/16 17:59 11/14/16 19:08 Levothyroxine Sodium (Synthroid) 75 mcg DAILY@0630 ORAL 11/17/16 06:30 12/17/16 06:29 11/17/16 06:13 Lorazepam (Ativan 2mg/ml 1ml) 0.5 mg Q4H PRN IV For Anxiety 11/12/16 03:37 11/19/16 03:36 Metoclopramide HCl (Reglan) 10 mg Q8H PRN IVP Nausea & Vomiting 11/16/16 14:45 12/16/16 14:44 Metoprolol Tartrate (Lopressor) 25 mg Q12H GT 11/17/16 21:00 12/17/16 20:59 Morphine Sulfate (Morphine Sulfate) 1 mg Q4H PRN IVP For Pain 11/12/16 03:30 11/19/16 03:29 Ondansetron HCl (Zofran) 4 mg Q6H PRN IVP Nausea & Vomiting 11/12/16 03:38 12/12/16 03:37 11/16/16 09:06 Piperacillin Sod/ Tazobactam Sod/ Dextrose (Zosyn/D5W) 110 ml @ 27.5 mls/hr Q8HR IVPB 11/12/16 06:00 11/19/16 05:59 11/17/16 13:32 Polyethylene Glycol (Miralax) 17 gm HSPRN PRN GT Constipation 11/12/16 03:39 12/12/16 03:38 11/15/16 17:45 Valproic Acid (Depakene) 250 mg DAILY GT 11/12/16 09:00 12/12/16 08:59 11/17/16 09:23 Vancomycin HCl (Vanco rx to dose) 1 ea DAILY PRN MISC . 11/12/16 09:00 12/12/16 08:59 Zolpidem Tartrate (Ambien) 5 mg HSPRN PRN GT Insomnia 11/14/16 17:24 12/12/16 03:33 MARY SELF Nov 17, 2016 17:03
--- NOTE | 2016-11-17 18:02 | Infectious Diseases Prog Note ---
Assessment/Plan Problems: (1) Cellulitis and abscess of face Assessment & Plan: improving on zosyn and vancomycin empirically , CT scan of the sinuses showed soft tissue swelling, and no abscess, can't do an MRI of the head with contrast to rule out any soft tissue abscess or infiltration since he has pacemaker. ENT is following (2) Cellulitis Assessment & Plan: of the neck , CT scan showed cellulitis and right lower thyroids pole mass S/P biopsy with pathology is pending , continue zosyn and vancomycin . (3) Diabetes Assessment & Plan: recommend tight glycemic control to keep blood glucose between 80-120 (4) HTN (hypertension) Assessment & Plan: continue meds to keep SBP <140 (5) Thyroid mass of unclear etiology Assessment & Plan: had US and FNA biopsy , pathology showed benign nodule , endocrinology is following Subjective Constitutional: Reports: no symptoms HEENT: Reports: other - mild left facial swelling with redness Respiratory: Reports: no symptoms Breasts: Reports: no symptoms Cardiovascular: Reports: no symptoms Gastrointestinal/Abdominal: Reports: no symptoms Genitourinary: Reports: no symptoms Neurologic: Reports: no symptoms Skin: Reports: no symptoms Allergies: Coded Allergies: AUBREY INHIBITORS (Verified Allergy, Unknown, ANGIOEDEMA, 09/17/12) Objective Vital Signs Last 24 Hour Vital Signs Date Time Temp Pulse Resp B/P Pulse Ox O2 Delivery O2 Flow Rate FiO2 11/17/16 16:00 97.9 64 19 136/59 100 Room Air 11/17/16 11:52 97.5 60 18 104/64 90 Room Air 11/17/16 08:40 67 97/59 11/17/16 08:40 67 97/59 11/17/16 08:00 97.7 67 20 97/59 96 Room Air 11/17/16 00:00 97.2 73 17 121/73 96 Room Air 11/16/16 20:39 64 117/68 11/16/16 20:00 97.9 18 117/68 95 Room Air Height (Feet): 5 Height (Inches): 9.00 Weight (Pounds): 170 General Appearance: WD/WN, no acute distress HEENT: atraumatic, anicteric, PERRL, no JVD, other - left facial swelling, dry oral mucosa Respiratory/Chest: chest wall non-tender, lungs clear, normal breath sounds, no respiratory distress, no accessory muscle use Cardiovascular: normal peripheral pulses, normal rate, regular rhythm, no gallop/murmur, no JVD Abdomen: normal bowel sounds, soft, non tender, no organomegaly, non distended , no mass, no scars Extremities: no cyanosis, no clubbing Skin: no rash, no lesions, no ulcers Laboratory Tests Test 11/17/16 08:08 Vancomycin Level Trough 54.8 ug/mL (5.0-12.0) H Current Medications Medications (Trade) Dose Ordered Sig/Yousuf Route PRN Reason Start Time Stop Time Status Last Admin Dose Admin Acetaminophen (Tylenol) 650 mg Q4H PRN ORAL fever 11/12/16 03:34 12/12/16 03:33 Al Hydroxide/Mg Hydroxide 30 ml 30 ml Q6H PRN GT dyspepsia 11/14/16 17:25 12/12/16 03:33 11/14/16 19:01 Amiodarone HCl (Cordarone) 100 mg DAILY GT 11/12/16 09:00 12/12/16 08:59 11/14/16 08:43 Apixaban (Eliquis) 2.5 mg Q12HR ORAL 11/12/16 09:00 12/12/16 08:59 11/17/16 09:23 Bupropion HCl (Wellbutrin) 75 mg Q12HR GT 11/14/16 17:25 12/12/16 08:59 11/17/16 09:22 Dextrose (Dextrose 50%) STAT PRN IV Hypoglycemia 11/12/16 03:35 12/12/16 03:34 Dextrose/Sodium Chloride (D5 0.45% NS) 1,000 ml @ 75 mls/hr [id number] IV 11/16/16 09:00 12/16/16 08:59 11/17/16 13:33 Doxazosin Mesylate (Cardura) 2 mg BEDTIME GT 11/12/16 21:00 12/12/16 20:59 11/16/16 20:39 Finasteride (Proscar) 5 mg DAILY GT 11/12/16 09:00 12/12/16 08:59 11/17/16 09:23 Insulin Aspart (NovoLOG) Q6HR SUBQ 11/14/16 18:00 12/14/16 17:59 11/14/16 19:08 Levothyroxine Sodium (Synthroid) 75 mcg DAILY@0630 ORAL 11/17/16 06:30 12/17/16 06:29 11/17/16 06:13 Lorazepam (Ativan 2mg/ml 1ml) 0.5 mg Q4H PRN IV For Anxiety 11/12/16 03:37 11/19/16 03:36 Metoclopramide HCl (Reglan) 10 mg Q8H PRN IVP Nausea & Vomiting 11/16/16 14:45 12/16/16 14:44 Metoprolol Tartrate (Lopressor) 25 mg Q12H GT 11/17/16 21:00 12/17/16 20:59 Morphine Sulfate (Morphine Sulfate) 1 mg Q4H PRN IVP For Pain 11/12/16 03:30 11/19/16 03:29 Ondansetron HCl (Zofran) 4 mg Q6H PRN IVP Nausea & Vomiting 11/12/16 03:38 12/12/16 03:37 11/16/16 09:06 Piperacillin Sod/ Tazobactam Sod/ Dextrose (Zosyn/D5W) 110 ml @ 27.5 mls/hr Q8HR IVPB 11/12/16 06:00 11/19/16 05:59 11/17/16 13:32 Polyethylene Glycol (Miralax) 17 gm HSPRN PRN GT Constipation 11/12/16 03:39 12/12/16 03:38 11/15/16 17:45 Valproic Acid (Depakene) 250 mg DAILY GT 11/12/16 09:00 12/12/16 08:59 11/17/16 09:23 Vancomycin HCl (Vanco rx to dose) 1 ea DAILY PRN MISC . 11/12/16 09:00 12/12/16 08:59 Zolpidem Tartrate (Ambien) 5 mg HSPRN PRN GT Insomnia 11/14/16 17:24 12/12/16 03:33 Aida Frederick M.D. Nov 17, 2016 18:02
[2016-11-17] MEDS: Mylanta II UD 30ml GT PRN (18:40)
[2016-11-17 20:00] VITALS: BP 128/55
[2016-11-17] MEDS: Doxazosin 1mg Tab GT SCH (21:23)
[2016-11-18] VITALS (7 sets, daily range): BP systolic 96–123; BP diastolic 59–82
[2016-11-18] MEDS: D5 1/2NS 1,000 ML IV SCH ×2 (00:49→14:22)
[2016-11-18] MEDS: NovoLOG Insulin Flexpen SUBQ SCH ×4 (06:00→18:00)
[2016-11-18] MEDS: Piperacillin/Tazobactam 3.375 GM in D5W 110 ML IVPB SCH ×3 (06:02→21:16)
--- NOTE | 2016-11-18 08:38 | General Progress Note ---
Assessment/Plan Problem List: (1) Hypothyroidism ICD Codes: E03.9 - Hypothyroidism, unspecified SNOMED: 39668715 (2) Swelling of left side of face ICD Codes: R22.0 - Localized swelling, mass and lump, head SNOMED: 939189039 (3) Cellulitis and abscess of face ICD Codes: L03.211 - Cellulitis of face; L02.01 - Cutaneous abscess of face SNOMED: 859877225 (4) PEG (percutaneous endoscopic gastrostomy) adjustment/replacement/removal ICD Codes: Z43.1 - Encounter for attention to gastrostomy SNOMED: 235775089 (5) Dysphagia ICD Codes: R13.10 - Dysphagia SNOMED: 55673061 (6) History of respiratory failure ICD Codes: Z87.09 - History of respiratory failure SNOMED: 867049568 (7) History of CVA (cerebrovascular accident) ICD Codes: Z86.73 - History of CVA (cerebrovascular accident) SNOMED: 578862855 (8) Thyroid mass of unclear etiology ICD Codes: E07.89 - Other specified disorders of thyroid SNOMED: 420860198 (9) Diabetes ICD Codes: E11.9 - Diabetes SNOMED: 08622035 Assessment/Plan FNA of thyroid mass performed - benign pathology Levothyroxine dosage increased to 75 mcg daily TSH should be repeated in 3-4 weeks for further dosage adjustment glucose values are well controlled continue blood glucose monitoring and Novolog coverage Subjective ROS Limited/Unobtainable: Yes Allergies: Coded Allergies: AUBREY INHIBITORS (Verified Allergy, Unknown, ANGIOEDEMA, 09/17/12) Subjective events noted - interval notes reviewed Objective Last 24 Hour Vital Signs Date Time Temp Pulse Resp B/P Pulse Ox O2 Delivery O2 Flow Rate FiO2 11/18/16 04:00 96.3 74 18 96/59 95 Room Air 11/18/16 00:00 97.8 69 18 112/61 100 Room Air 11/17/16 21:00 70 128/55 11/17/16 20:00 98.0 70 17 128/55 100 Room Air 11/17/16 16:00 97.9 64 19 136/59 100 Room Air 11/17/16 11:52 97.5 60 18 104/64 90 Room Air 11/17/16 08:40 67 97/59 11/17/16 08:40 67 97/59 Intake and Output 11/17/16 11/18/16 19:00 07:00 Intake Total 585.0 ml 102.5 ml Output Total 75 ml 565 ml Balance 510.0 ml -462.5 ml Intake Free Water 100 ml IV Total 485.0 ml 102.5 ml Output Urine Total 340 ml Other 75 ml 225 ml # Voids 1 2 Laboratory Tests 11/18/16 05:45: Random Vancomycin Level 49.4 Height (Feet): 5 Height (Inches): 9.00 Weight (Pounds): 170 General Appearance: no apparent distress EENT: pale conjunctivae Neck: normal alignment Cardiovascular: normal peripheral pulses Respiratory/Chest: decreased breath sounds Abdomen: normal bowel sounds Objective Current Medications Medications (Trade) Dose Ordered Sig/Yousuf Route PRN Reason Start Time Stop Time Status Last Admin Dose Admin Acetaminophen (Tylenol) 650 mg Q4H PRN ORAL fever 11/12/16 03:34 12/12/16 03:33 Al Hydroxide/Mg Hydroxide 30 ml 30 ml Q6H PRN GT dyspepsia 11/14/16 17:25 12/12/16 03:33 11/17/16 18:40 Amiodarone HCl (Cordarone) 100 mg DAILY GT 11/12/16 09:00 12/12/16 08:59 11/14/16 08:43 Apixaban (Eliquis) 2.5 mg Q12HR ORAL 11/12/16 09:00 12/12/16 08:59 11/17/16 21:23 Bupropion HCl (Wellbutrin) 75 mg Q12HR GT 11/14/16 17:25 12/12/16 08:59 11/17/16 21:23 Dextrose (Dextrose 50%) STAT PRN IV Hypoglycemia 11/12/16 03:35 12/12/16 03:34 Dextrose/Sodium Chloride (D5 0.45% NS) 1,000 ml @ 75 mls/hr [id number] IV 11/16/16 09:00 12/16/16 08:59 11/18/16 00:49 Doxazosin Mesylate (Cardura) 2 mg BEDTIME GT 11/12/16 21:00 12/12/16 20:59 11/17/16 21:23 Finasteride (Proscar) 5 mg DAILY GT 11/12/16 09:00 12/12/16 08:59 11/17/16 09:23 Insulin Aspart (NovoLOG) Q6HR SUBQ 11/14/16 18:00 12/14/16 17:59 11/14/16 19:08 Levothyroxine Sodium (Synthroid) 75 mcg DAILY@0630 ORAL 11/17/16 06:30 12/17/16 06:29 11/18/16 06:06 Lorazepam (Ativan 2mg/ml 1ml) 0.5 mg Q4H PRN IV For Anxiety 11/12/16 03:37 11/19/16 03:36 Metoclopramide HCl (Reglan) 10 mg Q8H PRN IVP Nausea & Vomiting 11/16/16 14:45 12/16/16 14:44 Metoprolol Tartrate (Lopressor) 25 mg Q12H GT 11/17/16 21:00 12/17/16 20:59 Morphine Sulfate (Morphine Sulfate) 1 mg Q4H PRN IVP For Pain 11/12/16 03:30 11/19/16 03:29 Ondansetron HCl (Zofran) 4 mg Q6H PRN IVP Nausea & Vomiting 11/12/16 03:38 12/12/16 03:37 11/17/16 18:40 Piperacillin Sod/ Tazobactam Sod/ Dextrose (Zosyn/D5W) 110 ml @ 27.5 mls/hr Q8HR IVPB 11/12/16 06:00 11/19/16 05:59 11/18/16 06:02 Polyethylene Glycol (Miralax) 17 gm HSPRN PRN GT Constipation 11/12/16 03:39 12/12/16 03:38 11/15/16 17:45 Valproic Acid (Depakene) 250 mg DAILY GT 11/12/16 09:00 12/12/16 08:59 11/17/16 09:23 Vancomycin HCl (Vanco rx to dose) 1 ea DAILY PRN MISC . 11/12/16 09:00 12/12/16 08:59 Zolpidem Tartrate (Ambien) 5 mg HSPRN PRN GT Insomnia 11/14/16 17:24 12/12/16 03:33 Item Value Date Time Bedside Blood Glucose 92 mg/dl 11/16/16 0000 Bedside Blood Glucose 95 mg/dl 11/15/16 1722 Bedside Blood Glucose 113 mg/dl 11/15/16 1203 Bedside Blood Glucose 83 mg/dl 11/15/16 0600 Bedside Blood Glucose 111 mg/dl 11/18/16 0600 Bedside Blood Glucose 113 mg/dl 11/18/16 0000 Bedside Blood Glucose 113 mg/dl 11/17/16 1800 Bedside Blood Glucose 101 mg/dl 11/17/16 1130 Bedside Blood Glucose 119 mg/dl 11/17/16 0600 Bedside Blood Glucose 112 mg/dl 11/17/16 0000 BETTY GERMAIN Nov 18, 2016 08:38
[2016-11-18] MEDS: Metoprolol Tartrate 12.5mg TAB GT SCH ×2 (09:00→21:15)
[2016-11-18] MEDS: BuPROPion 75mg Tab GT SCH ×2 (09:00→21:16)
[2016-11-18] MEDS: Valproic Acid 250mg/5ml Liquid GT SCH (10:50)
[2016-11-18] MEDS: Eliquis 2.5mg tablet ORAL SCH ×2 (10:51→21:16)
[2016-11-18] MEDS: Amiodarone 200mg tab GT SCH (12:31)
--- NOTE | 2016-11-18 12:38 | General Progress Note ---
Assessment/Plan Problem List: (1) History of CVA (cerebrovascular accident) ICD Codes: Z86.73 - History of CVA (cerebrovascular accident) SNOMED: 186822484 (2) History of respiratory failure ICD Codes: Z87.09 - History of respiratory failure SNOMED: 906088321 (3) Dysphagia ICD Codes: R13.10 - Dysphagia SNOMED: 77201527 (4) PEG (percutaneous endoscopic gastrostomy) adjustment/replacement/removal ICD Codes: Z43.1 - Encounter for attention to gastrostomy SNOMED: 873782261 (5) Cellulitis and abscess of face ICD Codes: L03.211 - Cellulitis of face; L02.01 - Cutaneous abscess of face SNOMED: 758296443 (6) Swelling of left side of face ICD Codes: R22.0 - Localized swelling, mass and lump, head SNOMED: 575652259 (7) Diabetes ICD Codes: E11.9 - Diabetes SNOMED: 68978621 (8) HTN (hypertension) ICD Codes: I10 - HTN (hypertension) SNOMED: 54691507 (9) Sepsis ICD Codes: A41.9 - Sepsis SNOMED: 63162294 (10) Thyroid mass of unclear etiology ICD Codes: E07.89 - Other specified disorders of thyroid SNOMED: 927074303 Status: progressing Assessment/Plan facial celluitis improving sbo consulted dr munoz i favor conservative tx for his sbo given his psych history and comorbidties Subjective ROS Limited/Unobtainable: Yes Allergies: Coded Allergies: AUBREY INHIBITORS (Verified Allergy, Unknown, ANGIOEDEMA, 09/17/12) Objective Last 24 Hour Vital Signs Date Time Temp Pulse Resp B/P Pulse Ox O2 Delivery O2 Flow Rate FiO2 11/18/16 10:40 68 123/73 11/18/16 09:00 68 123/73 11/18/16 08:30 98.5 64 20 99/60 95 Room Air 11/18/16 04:00 96.3 74 18 96/59 95 Room Air 11/18/16 00:00 97.8 69 18 112/61 100 Room Air 11/17/16 21:00 70 128/55 11/17/16 20:00 98.0 70 17 128/55 100 Room Air 11/17/16 16:00 97.9 64 19 136/59 100 Room Air Intake and Output 11/17/16 11/18/16 19:00 07:00 Intake Total 585.0 ml 102.5 ml Output Total 75 ml 565 ml Balance 510.0 ml -462.5 ml Intake Free Water 100 ml IV Total 485.0 ml 102.5 ml Output Urine Total 340 ml Other 75 ml 225 ml # Voids 1 2 Laboratory Tests 11/18/16 05:45: Random Vancomycin Level 49.4 Height (Feet): 5 Height (Inches): 9.00 Weight (Pounds): 170 Cardiovascular: normal rate Respiratory/Chest: lungs clear Abdomen: soft Laina Pereira MD Nov 18, 2016 12:38
--- NOTE | 2016-11-18 14:06 | General Progress Note ---
Assessment/Plan Assessment/Plan ASSESSMENT: 1. Left-sided facial erythema, cellulitis, is on antibiotics. Continue abx. Have reviewed imaging of thyroid, does not appear change in nodules. 2. Anemia secondary to chronic disease. 3. Right lower lobe thyroid nodule 19 x 11mm, s/p fna - benign 4. Diabetes mellitus. 5. Atrial fibrillation. 6. Cellulitis of the face. 7. Diabetes mellitus. 8. Hypertension. 9. Psychiatric history. 10. Afib on eliquis RECOMMENDATIONS: 1. Monitor counts. 2. Transfuse to hgb >7 3. MRI query head pending 4. Followup on ID, endo, Pulmonary recs, ENT recs 5. Reviewed pathology of thyroid - benign 6. DVT ppx with eliquis. 7. GI ppx as needed. 8. Pain control. 9. Abx as needed. 10. staff Thank you, Jax Alcaraz MD Subjective Constitutional: Reports: no symptoms HEENT: Reports: no symptoms Cardiovascular: Reports: no symptoms Respiratory: Reports: no symptoms Gastrointestinal/Abdominal: Reports: no symptoms Genitourinary: Reports: no symptoms Neurologic/Psychiatric: Reports: no symptoms Endocrine: Reports: no symptoms Hematologic/Lymphatic: Reports: anemia Allergies: Coded Allergies: AUBREY INHIBITORS (Verified Allergy, Unknown, ANGIOEDEMA, 09/17/12) Subjective stable, without bleeding, no night sweats, face is better Objective Last 24 Hour Vital Signs Date Time Temp Pulse Resp B/P Pulse Ox O2 Delivery O2 Flow Rate FiO2 11/18/16 12:00 97.5 67 19 120/77 93 Room Air 11/18/16 10:40 68 123/73 11/18/16 09:00 68 123/73 11/18/16 08:30 98.5 64 20 99/60 95 Room Air 11/18/16 04:00 96.3 74 18 96/59 95 Room Air 11/18/16 00:00 97.8 69 18 112/61 100 Room Air 11/17/16 21:00 70 128/55 11/17/16 20:00 98.0 70 17 128/55 100 Room Air 11/17/16 16:00 97.9 64 19 136/59 100 Room Air Intake and Output 11/17/16 11/18/16 19:00 07:00 Intake Total 585.0 ml 102.5 ml Output Total 75 ml 565 ml Balance 510.0 ml -462.5 ml Intake Free Water 100 ml IV Total 485.0 ml 102.5 ml Output Urine Total 340 ml Other 75 ml 225 ml # Voids 1 2 Laboratory Tests 11/18/16 05:45: Random Vancomycin Level 49.4 Height (Feet): 5 Height (Inches): 9.00 Weight (Pounds): 170 General Appearance: alert EENT: normal ENT inspection Neck: supple Cardiovascular: regular rhythm Respiratory/Chest: normal breath sounds Abdomen: soft Extremities: non-tender Edema: 1+ Leg (L), 1+ Leg (R) Edema: mild edema Neurologic: alert Skin: warm/dry Jax Alcaraz Nov 18, 2016 14:06
--- NOTE | 2016-11-18 15:49 | Pulmonology Progress Note ---
Assessment/Plan Problems: (1) Respiratory insufficiency (2) Cellulitis (3) HTN (hypertension) (4) History of CVA (cerebrovascular accident) Assessment/Plan continue antibiotics biopsy results noted respiratory treatment titrate fio2 to sat of 92% Subjective ROS Limited/Unobtainable: No Interval Events: biopsy result noted Constitutional: Reports: no symptoms Allergies: Coded Allergies: AUBREY INHIBITORS (Verified Allergy, Unknown, ANGIOEDEMA, 09/17/12) Objective Last 24 Hour Vital Signs Date Time Temp Pulse Resp B/P Pulse Ox O2 Delivery O2 Flow Rate FiO2 11/18/16 12:00 97.5 67 19 120/77 93 Room Air 11/18/16 10:40 68 123/73 11/18/16 09:00 68 123/73 11/18/16 08:30 98.5 64 20 99/60 95 Room Air 11/18/16 04:00 96.3 74 18 96/59 95 Room Air 11/18/16 00:00 97.8 69 18 112/61 100 Room Air 11/17/16 21:00 70 128/55 11/17/16 20:00 98.0 70 17 128/55 100 Room Air 11/17/16 16:00 97.9 64 19 136/59 100 Room Air Intake and Output 11/17/16 11/18/16 19:00 07:00 Intake Total 585.0 ml 102.5 ml Output Total 75 ml 565 ml Balance 510.0 ml -462.5 ml Intake Free Water 100 ml IV Total 485.0 ml 102.5 ml Output Urine Total 340 ml Other 75 ml 225 ml # Voids 1 2 General Appearance: WD/WN HEENT: normocephalic, atraumatic Respiratory/Chest: chest wall non-tender, lungs clear Cardiovascular: normal peripheral pulses, regular rhythm Abdomen: normal bowel sounds, soft, non tender Genitourinary: normal external genitalia Extremities: no cyanosis Neurologic/Psychiatric: color receiver II-XII grossly normal Laboratory Tests 11/18/16 05:45: Random Vancomycin Level 49.4 Current Medications Medications (Trade) Dose Ordered Sig/Yousuf Route PRN Reason Start Time Stop Time Status Last Admin Dose Admin Acetaminophen (Tylenol) 650 mg Q4H PRN ORAL fever 11/12/16 03:34 12/12/16 03:33 Al Hydroxide/Mg Hydroxide 30 ml 30 ml Q6H PRN GT dyspepsia 2/3/17 17:25 12/12/16 03:33 11/17/16 18:40 Amiodarone HCl (Cordarone) 100 mg DAILY GT 11/12/16 09:00 12/12/16 08:59 11/18/16 12:31 Apixaban (Eliquis) 2.5 mg Q12HR ORAL 11/12/16 09:00 12/12/16 08:59 11/18/16 10:51 Bupropion HCl (Wellbutrin) 75 mg Q12HR GT 11/18/16 11:06 12/12/16 08:59 Dextrose (Dextrose 50%) STAT PRN IV Hypoglycemia 11/12/16 03:35 12/12/16 03:34 Dextrose/Sodium Chloride (D5 0.45% NS) 1,000 ml @ 75 mls/hr [id number] IV 11/16/16 09:00 12/16/16 08:59 11/18/16 14:22 Doxazosin Mesylate (Cardura) 2 mg BEDTIME GT 11/12/16 21:00 12/12/16 20:59 11/17/16 21:23 Finasteride (Proscar) 5 mg DAILY GT 11/12/16 09:00 12/12/16 08:59 11/18/16 10:50 Insulin Aspart (NovoLOG) Q6HR SUBQ 11/14/16 18:00 12/14/16 17:59 11/14/16 19:08 Levothyroxine Sodium (Synthroid) 75 mcg DAILY@0630 ORAL 11/17/16 06:30 12/17/16 06:29 11/18/16 06:06 Lorazepam (Ativan 2mg/ml 1ml) 0.5 mg Q4H PRN IV For Anxiety 11/12/16 03:37 11/19/16 03:36 Metoclopramide HCl (Reglan) 10 mg Q8H PRN IVP Nausea & Vomiting 11/16/16 14:45 12/16/16 14:44 Metoprolol Tartrate (Lopressor) 25 mg Q12H GT 11/17/16 21:00 12/17/16 20:59 Morphine Sulfate (Morphine Sulfate) 1 mg Q4H PRN IVP For Pain 11/12/16 03:30 11/19/16 03:29 Ondansetron HCl (Zofran) 4 mg Q6H PRN IVP Nausea & Vomiting 11/12/16 03:38 12/12/16 03:37 11/17/16 18:40 Piperacillin Sod/ Tazobactam Sod/ Dextrose (Zosyn/D5W) 110 ml @ 27.5 mls/hr Q8HR IVPB 11/12/16 06:00 11/19/16 05:59 11/18/16 14:14 Polyethylene Glycol (Miralax) 17 gm HSPRN PRN GT Constipation 11/12/16 03:39 12/12/16 03:38 11/15/16 17:45 Valproic Acid (Depakene) 250 mg DAILY GT 11/12/16 09:00 12/12/16 08:59 11/18/16 10:50 Vancomycin HCl (Vanco rx to dose) 1 ea DAILY PRN MISC . 11/12/16 09:00 12/12/16 08:59 Zolpidem Tartrate (Ambien) 5 mg HSPRN PRN GT Insomnia 11/14/16 17:24 12/12/16 03:33 MARY SELF Nov 18, 2016 15:49
--- NOTE | 2016-11-18 16:00 | Cardiac Electrophysiology PN ---
Assessment/Plan Assessment/Plan 1. Status post [facility] [employer] permanent pacemaker implantation in 2012. Interrogated and showed normal function 2. Paroxysmal atrial fibrillation, currently in sinus rhythm, on amiodarone 100 mg daily and Eliquis 2.5 mg twice a day for anticoagulation. 3. Episode of hypotension. Resolved off Norvasc and lower dose of metoprolol 25 bid. Echocardiogram still pending. 4. Hypothyroidism, on Synthroid under management of Dr. Chairez. 5. Left facial cellulitis improving on zosyn and vancomycin empirically , CT scan of the sinuses showed soft tissue swelling, and no abscess 6. Dysphagia, status post gastrostomy tube. 7. Diabetes. 8. Thyroid mass.FNA of thyroid mass performed - benign pathology. Follow up Dr Mihaela KEENE RN Subjective Subjective Alert in NAD.Pacer was interrogated yesterday. Objective Last 24 Hour Vital Signs Date Time Temp Pulse Resp B/P Pulse Ox O2 Delivery O2 Flow Rate FiO2 11/18/16 12:00 97.5 67 19 120/77 93 Room Air 11/18/16 10:40 68 123/73 11/18/16 09:00 68 123/73 11/18/16 08:30 98.5 64 20 99/60 95 Room Air 11/18/16 04:00 96.3 74 18 96/59 95 Room Air 11/18/16 00:00 97.8 69 18 112/61 100 Room Air 11/17/16 21:00 70 128/55 11/17/16 20:00 98.0 70 17 128/55 100 Room Air 11/17/16 16:00 97.9 64 19 136/59 100 Room Air Intake and Output 11/17/16 11/18/16 19:00 07:00 Intake Total 585.0 ml 102.5 ml Output Total 75 ml 565 ml Balance 510.0 ml -462.5 ml Intake Free Water 100 ml IV Total 485.0 ml 102.5 ml Output Urine Total 340 ml Other 75 ml 225 ml # Voids 1 2 Laboratory Tests Test 11/18/16 05:45 Random Vancomycin Level 49.4 ug/mL Objective Neck: normal alignment. S/P Thyroid biopsy. Cardiovascular: regular rhythm. Pacer left subclavian. Respiratory/Chest: lungs clear Abdomen: no mass Extremities: non-tender Neurologic: alert Skin: warm/dry HILDA MEJIA Nov 18, 2016 16:00
--- NOTE | 2016-11-18 17:22 | Infectious Diseases Prog Note ---
Assessment/Plan Problems: (1) Cellulitis and abscess of face Assessment & Plan: improving on zosyn and vancomycin empirically , vancomycin on hold since it is super theraputic , CT scan of the sinuses showed soft tissue swelling, and no abscess, can't do an MRI of the head with contrast to rule out any soft tissue abscess or infiltration since he has pacemaker. will continue to monitor on antibiotics, ENT is following (2) Cellulitis Assessment & Plan: of the neck , CT scan showed cellulitis and right lower thyroids pole mass S/P biopsy with pathology is pending , continue zosyn and vancomycin . (3) Diabetes Assessment & Plan: recommend tight glycemic control to keep blood glucose between 80-120 (4) HTN (hypertension) Assessment & Plan: continue meds to keep SBP <140 (5) Thyroid mass of unclear etiology Assessment & Plan: had US and FNA biopsy , pathology showed benign nodule , endocrinology is following Subjective Constitutional: Reports: no symptoms HEENT: Reports: other - LEFT FACIAL SWELLING Respiratory: Reports: no symptoms Breasts: Reports: no symptoms Cardiovascular: Reports: no symptoms Gastrointestinal/Abdominal: Reports: no symptoms Genitourinary: Reports: no symptoms Neurologic: Reports: no symptoms Psychiatric: Reports: no symptoms Skin: Reports: no symptoms Allergies: Coded Allergies: AUBREY INHIBITORS (Verified Allergy, Unknown, ANGIOEDEMA, 09/17/12) Objective Vital Signs Last 24 Hour Vital Signs Date Time Temp Pulse Resp B/P Pulse Ox O2 Delivery O2 Flow Rate FiO2 11/18/16 12:00 97.5 67 19 120/77 93 Room Air 11/18/16 10:40 68 123/73 11/18/16 09:00 68 123/73 11/18/16 08:30 98.5 64 20 99/60 95 Room Air 11/18/16 04:00 96.3 74 18 96/59 95 Room Air 11/18/16 00:00 97.8 69 18 112/61 100 Room Air 11/17/16 21:00 70 128/55 11/17/16 20:00 98.0 70 17 128/55 100 Room Air Height (Feet): 5 Height (Inches): 9.00 Weight (Pounds): 170 General Appearance: WD/WN, no acute distress HEENT: normocephalic, atraumatic, anicteric, mucous membranes moist, PERRL, other - left facial swelling and redness, Respiratory/Chest: chest wall non-tender, lungs clear, normal breath sounds, no respiratory distress, no accessory muscle use Cardiovascular: normal peripheral pulses, normal rate, regular rhythm, no gallop/murmur Abdomen: normal bowel sounds, soft, non tender, no organomegaly, non distended , no mass, no scars Extremities: no cyanosis, no clubbing Skin: no rash, no lesions, no ulcers Laboratory Tests Test 11/18/16 05:45 Random Vancomycin Level 49.4 ug/mL Current Medications Medications (Trade) Dose Ordered Sig/Yousuf Route PRN Reason Start Time Stop Time Status Last Admin Dose Admin Acetaminophen (Tylenol) 650 mg Q4H PRN ORAL fever 11/12/16 03:34 12/12/16 03:33 Al Hydroxide/Mg Hydroxide 30 ml 30 ml Q6H PRN GT dyspepsia 11/14/16 17:25 12/12/16 03:33 11/17/16 18:40 Amiodarone HCl (Cordarone) 100 mg DAILY GT 11/12/16 09:00 12/12/16 08:59 11/18/16 12:31 Apixaban (Eliquis) 2.5 mg Q12HR ORAL 11/12/16 09:00 12/12/16 08:59 11/18/16 10:51 Bupropion HCl (Wellbutrin) 75 mg Q12HR GT 11/18/16 11:06 12/12/16 08:59 Dextrose (Dextrose 50%) STAT PRN IV Hypoglycemia 11/12/16 03:35 12/12/16 03:34 Dextrose/Sodium Chloride (D5 0.45% NS) 1,000 ml @ 75 mls/hr [id number] IV 11/16/16 09:00 12/16/16 08:59 11/18/16 14:22 Doxazosin Mesylate (Cardura) 2 mg BEDTIME GT 11/12/16 21:00 12/12/16 20:59 11/17/16 21:23 Finasteride (Proscar) 5 mg DAILY GT 11/12/16 09:00 12/12/16 08:59 11/18/16 10:50 Insulin Aspart (NovoLOG) Q6HR SUBQ 11/14/16 18:00 12/14/16 17:59 11/14/16 19:08 Levothyroxine Sodium (Synthroid) 75 mcg DAILY@0630 ORAL 11/17/16 06:30 12/17/16 06:29 11/18/16 06:06 Lorazepam (Ativan 2mg/ml 1ml) 0.5 mg Q4H PRN IV For Anxiety 11/12/16 03:37 11/19/16 03:36 Metoclopramide HCl (Reglan) 10 mg Q8H PRN IVP Nausea & Vomiting 11/16/16 14:45 12/16/16 14:44 Metoprolol Tartrate (Lopressor) 25 mg Q12H GT 11/17/16 21:00 12/17/16 20:59 Morphine Sulfate (Morphine Sulfate) 1 mg Q4H PRN IVP For Pain 11/12/16 03:30 11/19/16 03:29 Ondansetron HCl (Zofran) 4 mg Q6H PRN IVP Nausea & Vomiting 11/12/16 03:38 12/12/16 03:37 11/17/16 18:40 Piperacillin Sod/ Tazobactam Sod/ Dextrose (Zosyn/D5W) 110 ml @ 27.5 mls/hr Q8HR IVPB 11/12/16 06:00 11/19/16 05:59 11/18/16 14:14 Polyethylene Glycol (Miralax) 17 gm HSPRN PRN GT Constipation 11/12/16 03:39 12/12/16 03:38 11/15/16 17:45 Valproic Acid (Depakene) 250 mg DAILY GT 11/12/16 09:00 12/12/16 08:59 11/18/16 10:50 Vancomycin HCl (Vanco rx to dose) 1 ea DAILY PRN MISC . 11/12/16 09:00 12/12/16 08:59 Zolpidem Tartrate (Ambien) 5 mg HSPRN PRN GT Insomnia 11/14/16 17:24 12/12/16 03:33 Aida Frederick M.D. Nov 18, 2016 17:22
[2016-11-18] MEDS: Doxazosin 1mg Tab GT SCH (21:16)
--- NOTE | 2016-11-18 23:10 | General Progress Note ---
Assessment/Plan Assessment/Plan Assessment - SBO vs ileus - Facial cellulitis - Anemia - s/p PEG - a fib - DM - HN Recommendations - NPO - IVF - GT --> clamp - check KUB - follow exam and labs Subjective Allergies: Coded Allergies: AUBREY INHIBITORS (Verified Allergy, Unknown, ANGIOEDEMA, 09/17/12) Subjective Feels better smiling less abdominal discomfort Objective Last 24 Hour Vital Signs Date Time Temp Pulse Resp B/P Pulse Ox O2 Delivery O2 Flow Rate FiO2 11/18/16 21:15 67 121/82 11/18/16 20:00 97.7 74 20 122/74 96 Room Air 11/18/16 16:00 96.8 67 20 121/82 95 Room Air 11/18/16 12:00 97.5 67 19 120/77 93 Room Air 11/18/16 10:40 68 123/73 11/18/16 09:00 68 123/73 11/18/16 08:30 98.5 64 20 99/60 95 Room Air 11/18/16 04:00 96.3 74 18 96/59 95 Room Air 11/18/16 00:00 97.8 69 18 112/61 100 Room Air Intake and Output 11/17/16 11/18/16 19:00 07:00 Intake Total 585.0 ml 102.5 ml Output Total 75 ml 565 ml Balance 510.0 ml -462.5 ml Intake Free Water 100 ml IV Total 485.0 ml 102.5 ml Output Urine Total 340 ml Other 75 ml 225 ml # Voids 1 2 Laboratory Tests 11/18/16 05:45: Random Vancomycin Level 49.4 Height (Feet): 5 Height (Inches): 9.00 Weight (Pounds): 170 Objective debilitated WM (+) neck scar CTA RR abd softer and less distended today, (+) GT to gravity no edema WILLIS AMADO Nov 18, 2016 23:10
[2016-11-19] VITALS: BP 92/60
[2016-11-19] MEDS: D5 1/2NS 1,000 ML IV SCH ×2 (03:10→18:21)
[2016-11-19 04:00] VITALS: BP 96/64
[2016-11-19] MEDS: NovoLOG Insulin Flexpen SUBQ SCH ×4 (06:00→18:00)
--- NOTE | 2016-11-19 07:09 | General Progress Note ---
Assessment/Plan Problem List: (1) Hypothyroidism ICD Codes: E03.9 - Hypothyroidism, unspecified SNOMED: 08817539 (2) Swelling of left side of face ICD Codes: R22.0 - Localized swelling, mass and lump, head SNOMED: 065586883 (3) Cellulitis and abscess of face ICD Codes: L03.211 - Cellulitis of face; L02.01 - Cutaneous abscess of face SNOMED: 387197715 (4) PEG (percutaneous endoscopic gastrostomy) adjustment/replacement/removal ICD Codes: Z43.1 - Encounter for attention to gastrostomy SNOMED: 943779536 (5) Dysphagia ICD Codes: R13.10 - Dysphagia SNOMED: 73282594 (6) History of respiratory failure ICD Codes: Z87.09 - History of respiratory failure SNOMED: 793652629 (7) History of CVA (cerebrovascular accident) ICD Codes: Z86.73 - History of CVA (cerebrovascular accident) SNOMED: 139296242 (8) Thyroid mass of unclear etiology ICD Codes: E07.89 - Other specified disorders of thyroid SNOMED: 140470076 (9) Diabetes ICD Codes: E11.9 - Diabetes SNOMED: 29825796 Assessment/Plan thyroid mass is benign continue Levothyroxine 75 mcg daily TSH should be repeated in 3-4 weeks for further dosage adjustment glucose values are well controlled continue blood glucose monitoring and Novolog coverage Subjective ROS Limited/Unobtainable: Yes Allergies: Coded Allergies: AUBREY INHIBITORS (Verified Allergy, Unknown, ANGIOEDEMA, 09/17/12) Subjective events noted - interval notes reviewed Objective Last 24 Hour Vital Signs Date Time Temp Pulse Resp B/P Pulse Ox O2 Delivery O2 Flow Rate FiO2 11/19/16 04:00 97.6 62 18 96/64 97 Room Air 11/19/16 00:00 96.8 60 18 92/60 97 Room Air 11/18/16 21:15 67 121/82 11/18/16 20:00 97.7 74 20 122/74 96 Room Air 11/18/16 16:00 96.8 67 20 121/82 95 Room Air 11/18/16 12:00 97.5 67 19 120/77 93 Room Air 11/18/16 10:40 68 123/73 11/18/16 09:00 68 123/73 11/18/16 08:30 98.5 64 20 99/60 95 Room Air Intake and Output 11/18/16 11/19/16 19:00 07:00 Intake Total 900 ml 252.5 ml Balance 900 ml 252.5 ml IV Total 900 ml 252.5 ml # Voids 1 2 Height (Feet): 5 Height (Inches): 9.00 Weight (Pounds): 170 General Appearance: lethargic EENT: pale conjunctivae Neck: normal alignment Cardiovascular: normal rate Respiratory/Chest: decreased breath sounds Abdomen: hypoactive bowel sounds, other - PEG Pelvis: normal external exam Edema: no edema noted Arm (L), no edema noted Arm (R), no edema noted Leg (L), no edema noted Leg (R), no edema noted Pedal (L), no edema noted Pedal (R), no edema noted Generalized Objective Current Medications Medications (Trade) Dose Ordered Sig/Yousuf Route PRN Reason Start Time Stop Time Status Last Admin Dose Admin Acetaminophen (Tylenol) 650 mg Q4H PRN ORAL fever 11/12/16 03:34 12/12/16 03:33 Al Hydroxide/Mg Hydroxide 30 ml 30 ml Q6H PRN GT dyspepsia 11/14/16 17:25 12/12/16 03:33 11/17/16 18:40 Amiodarone HCl (Cordarone) 100 mg DAILY GT 11/12/16 09:00 12/12/16 08:59 11/18/16 12:31 Apixaban (Eliquis) 2.5 mg Q12HR ORAL 11/12/16 09:00 12/12/16 08:59 11/18/16 21:16 Bupropion HCl (Wellbutrin) 75 mg Q12HR GT 11/18/16 11:06 12/12/16 08:59 11/18/16 21:16 Dextrose (Dextrose 50%) STAT PRN IV Hypoglycemia 11/12/16 03:35 12/12/16 03:34 Dextrose/Sodium Chloride (D5 0.45% NS) 1,000 ml @ 75 mls/hr [id number] IV 11/16/16 09:00 12/16/16 08:59 11/19/16 03:10 Doxazosin Mesylate (Cardura) 2 mg BEDTIME GT 11/12/16 21:00 12/12/16 20:59 11/18/16 21:16 Finasteride (Proscar) 5 mg DAILY GT 11/12/16 09:00 12/12/16 08:59 11/18/16 10:50 Insulin Aspart (NovoLOG) Q6HR SUBQ 11/14/16 18:00 12/14/16 17:59 11/14/16 19:08 Levothyroxine Sodium (Synthroid) 75 mcg DAILY@0630 ORAL 11/17/16 06:30 12/17/16 06:29 11/19/16 06:17 Metoclopramide HCl (Reglan) 10 mg Q8H PRN IVP Nausea & Vomiting 11/16/16 14:45 12/16/16 14:44 Metoprolol Tartrate (Lopressor) 25 mg Q12H GT 11/17/16 21:00 12/17/16 20:59 11/18/16 21:15 Ondansetron HCl (Zofran) 4 mg Q6H PRN IVP Nausea & Vomiting 11/12/16 03:38 12/12/16 03:37 11/17/16 18:40 Polyethylene Glycol (Miralax) 17 gm HSPRN PRN GT Constipation 11/12/16 03:39 12/12/16 03:38 11/15/16 17:45 Valproic Acid (Depakene) 250 mg DAILY GT 11/12/16 09:00 12/12/16 08:59 11/18/16 10:50 Vancomycin HCl (Vanco rx to dose) 1 ea DAILY PRN MISC . 11/12/16 09:00 12/12/16 08:59 Zolpidem Tartrate (Ambien) 5 mg HSPRN PRN GT Insomnia 11/14/16 17:24 12/12/16 03:33 Item Value Date Time Bedside Blood Glucose 101 mg/dl 11/19/16 0600 Bedside Blood Glucose 105 mg/dl 11/19/16 0000 Bedside Blood Glucose 112 mg/dl 11/18/16 1819 Bedside Blood Glucose 123 mg/dl H 11/18/16 1223 Bedside Blood Glucose 111 mg/dl 11/18/16 0600 Bedside Blood Glucose 113 mg/dl 11/18/16 0000 BETTY GERMAIN Nov 19, 2016 07:09
[2016-11-19 08:37] VITALS: BP 93/54
--- NOTE | 2016-11-19 08:46 | Cardiology Report ---
APPROVED REPORT EXAM: Two-dimensional and M-mode echocardiogram with Doppler and color Doppler. Technically difficult study due to poor acoustic windows and GI Tube blocking scan area. Apical views obtained only. Study quality precludes accurate assessment of regional wall motion. M-mode measurements of left ventricle not obtainable. Normal left ventricular chamber size, grossly systolic function and wall motion to extent visualized. Left ventricular ejection fraction estimated to be 55-60 %. Mild ventricular hypertrophy. No evidence of pericardial fat or effusion. All other cardiac chamber sizes are within normal limits. Aortic valve calcification with decreased cusp excursion. Moderately thickened mitral valve leaflets with normal excursion. Moderate mitral annulus and aortic root calcification. Pulmonic valve not visualized. Normal tricuspid valve structure. Subcostal views not obtainable. A color flow and spectral Doppler study was performed and revealed: Mild aortic regurgitation. Peak aortic valve gradient of 39 mmHg and a mean of 25 mmHg. Aortic valve area 1.4 cm2 calculated by continuity equation consistent with moderate aortic stenosis. Trace mitral regurgitation. Mitral diastolic velocities suggest reduced left ventricular relaxation (Grade I). Trace tricuspid regurgitation.
[2016-11-19] MEDS: Metoprolol Tartrate 12.5mg TAB GT SCH ×2 (09:00→20:54)
--- NOTE | 2016-11-19 09:30 | General Progress Note ---
Assessment/Plan Assessment/Plan ASSESSMENT: 1. Left-sided facial erythema, cellulitis, improved. Continue abx 2. Anemia secondary to chronic disease. 3. Right lower lobe thyroid nodule 19 x 11mm, s/p fna - benign 4. Diabetes mellitus. 5. Atrial fibrillation. 6. Cellulitis of the face. 7. Diabetes mellitus. 8. Hypertension. 9. Psychiatric history. 10. Afib on eliquis RECOMMENDATIONS: 1. Monitor counts. 2. Transfuse to hgb >7 3. MRI query head pending 4. Followup on ID, endo, Pulmonary recs, ENT recs 5. Reviewed pathology of thyroid - benign 6. DVT ppx with eliquis. 7. GI ppx as needed. 8. Pain control. 9. Abx as needed. 10. staff Thank you, Jax Alcaraz MD Subjective Constitutional: Reports: no symptoms HEENT: Reports: no symptoms Cardiovascular: Reports: no symptoms Respiratory: Reports: no symptoms Gastrointestinal/Abdominal: Reports: no symptoms Genitourinary: Reports: no symptoms Neurologic/Psychiatric: Reports: no symptoms Endocrine: Reports: no symptoms Hematologic/Lymphatic: Reports: anemia Allergies: Coded Allergies: AUBREY INHIBITORS (Verified Allergy, Unknown, ANGIOEDEMA, 09/17/12) Subjective stable, without bleeding, no night sweats, face improved Objective Last 24 Hour Vital Signs Date Time Temp Pulse Resp B/P Pulse Ox O2 Delivery O2 Flow Rate FiO2 11/19/16 08:37 98.2 63 20 93/54 98 Room Air 11/19/16 04:00 97.6 62 18 96/64 97 Room Air 11/19/16 00:00 96.8 60 18 92/60 97 Room Air 11/18/16 21:15 67 121/82 11/18/16 20:00 97.7 74 20 122/74 96 Room Air 11/18/16 16:00 96.8 67 20 121/82 95 Room Air 11/18/16 12:00 97.5 67 19 120/77 93 Room Air 11/18/16 10:40 68 123/73 Intake and Output 11/18/16 11/19/16 19:00 07:00 Intake Total 900 ml 252.5 ml Balance 900 ml 252.5 ml IV Total 900 ml 252.5 ml # Voids 1 2 Height (Feet): 5 Height (Inches): 9.00 Weight (Pounds): 170 General Appearance: no apparent distress EENT: normal ENT inspection Neck: normal alignment Cardiovascular: regular rhythm Respiratory/Chest: chest wall non-tender Abdomen: soft Extremities: normal range of motion Edema: mild edema Neurologic: alert Skin: warm/dry Jax Alcaraz Nov 19, 2016 09:30
--- NOTE | 2016-11-19 10:23 | General Progress Note ---
Assessment/Plan Problem List: (1) History of CVA (cerebrovascular accident) ICD Codes: Z86.73 - History of CVA (cerebrovascular accident) SNOMED: 910438788 (2) History of respiratory failure ICD Codes: Z87.09 - History of respiratory failure SNOMED: 924392037 (3) Dysphagia ICD Codes: R13.10 - Dysphagia SNOMED: 80085274 (4) PEG (percutaneous endoscopic gastrostomy) adjustment/replacement/removal ICD Codes: Z43.1 - Encounter for attention to gastrostomy SNOMED: 725412568 (5) Cellulitis and abscess of face ICD Codes: L03.211 - Cellulitis of face; L02.01 - Cutaneous abscess of face SNOMED: 952774344 (6) Swelling of left side of face ICD Codes: R22.0 - Localized swelling, mass and lump, head SNOMED: 056805515 (7) Diabetes ICD Codes: E11.9 - Diabetes SNOMED: 89592088 (8) HTN (hypertension) ICD Codes: I10 - HTN (hypertension) SNOMED: 96106993 (9) Sepsis ICD Codes: A41.9 - Sepsis SNOMED: 40524625 (10) Thyroid mass of unclear etiology ICD Codes: E07.89 - Other specified disorders of thyroid SNOMED: 664490163 Status: progressing Assessment/Plan facial celluitis improving sbo consulted dr munoz abdomen is distended again today discussed w dr swann will contact dr munoz again for f/u Subjective ROS Limited/Unobtainable: Yes Constitutional: Reports: no symptoms Allergies: Coded Allergies: AUBREY INHIBITORS (Verified Allergy, Unknown, ANGIOEDEMA, 09/17/12) Objective Last 24 Hour Vital Signs Date Time Temp Pulse Resp B/P Pulse Ox O2 Delivery O2 Flow Rate FiO2 11/19/16 08:37 98.2 63 20 93/54 98 Room Air 11/19/16 04:00 97.6 62 18 96/64 97 Room Air 11/19/16 00:00 96.8 60 18 92/60 97 Room Air 11/18/16 21:15 67 121/82 11/18/16 20:00 97.7 74 20 122/74 96 Room Air 11/18/16 16:00 96.8 67 20 121/82 95 Room Air 11/18/16 12:00 97.5 67 19 120/77 93 Room Air 11/18/16 10:40 68 123/73 Intake and Output 11/18/16 11/19/16 19:00 07:00 Intake Total 900 ml 252.5 ml Balance 900 ml 252.5 ml IV Total 900 ml 252.5 ml # Voids 1 2 Height (Feet): 5 Height (Inches): 9.00 Weight (Pounds): 170 Neck: supple Cardiovascular: normal rate Respiratory/Chest: lungs clear Laina Pereira MD Nov 19, 2016 10:23
[2016-11-19] MEDS: Eliquis 2.5mg tablet ORAL SCH ×2 (11:04→20:54)
[2016-11-19] MEDS: BuPROPion 75mg Tab GT SCH ×2 (11:04→20:54)
[2016-11-19] MEDS: Valproic Acid 250mg/5ml Liquid GT SCH (11:04)
[2016-11-19] MEDS: Amiodarone 200mg tab GT SCH (11:09)
[2016-11-19] MEDS ORDERED: D5 1/2NS 1000ml IV ONE (11:12)
--- NOTE | 2016-11-19 11:44 | Diagnostic Imaging Report ---
Indications: Abdominal distention Technique: Portable AP abdomen Findings: Comparison: 11/16/2016 Gaseous distention of small bowel persists, perhaps mildly increased. Gas persists throughout nondilated colon to rectum. None abnormalities demonstrated. IMPRESSION: Persistent ileus pattern, perhaps mildly more prominent
[2016-11-19 12:17] VITALS: BP 101/71
[2016-11-19] MEDS ORDERED: Metoclopramide 10mg/2ml Inj IM SCH (14:00)
--- NOTE | 2016-11-19 14:16 | Cardiac Electrophysiology PN ---
Assessment/Plan Status Narrative Technically difficult study due to poor acoustic windows and GI Tube blocking scan area. Apical views obtained only. Study quality precludes accurate assessment of regional wall motion. M-mode measurements of left ventricle not obtainable. Normal left ventricular chamber size, grossly systolic function and wall motion to extent visualized. Left ventricular ejection fraction estimated to be 55-60 %. Mild ventricular hypertrophy. No evidence of pericardial fat or effusion. All other cardiac chamber sizes are within normal limits. Aortic valve calcification with decreased cusp excursion. Moderately thickened mitral valve leaflets with normal excursion. Moderate mitral annulus and aortic root calcification. Pulmonic valve not visualized. Normal tricuspid valve structure. Subcostal views not obtainable. Assessment/Plan 1. Status post [facility] [employer] permanent pacemaker implantation with normal function 2. Paroxysmal atrial fibrillation, in sinus rhythm, on amiodarone 100 mg daily and Eliquis 2.5 mg twice a day for anticoagulation. 3. Episode of hypotension. Resolved. Now on metoprolol 25 bid. Echocardiogram EF 55% 4. Hypothyroidism, on Synthroid under management of Dr. Chairez. 5. Left facial cellulitis improving on iv ABx. CT scan of the sinuses showed soft tissue swelling, and no abscess 6. Dysphagia, status post gastrostomy tube. 7. Diabetes. 8. Thyroid mass. FNA of thyroid mass performed - benign pathology. Follow up Dr Mihaela KEENE RN Subjective Subjective Alert in NAD.On iv antibiotics. Having significant diarrhea. Objective Last 24 Hour Vital Signs Date Time Temp Pulse Resp B/P Pulse Ox O2 Delivery O2 Flow Rate FiO2 11/19/16 12:17 97.2 60 20 101/71 96 Room Air 11/19/16 08:37 98.2 63 20 93/54 98 Room Air 11/19/16 04:00 97.6 62 18 96/64 97 Room Air 11/19/16 00:00 96.8 60 18 92/60 97 Room Air 11/18/16 21:15 67 121/82 11/18/16 20:00 97.7 74 20 122/74 96 Room Air 11/18/16 16:00 96.8 67 20 121/82 95 Room Air Intake and Output 11/18/16 11/19/16 19:00 07:00 Intake Total 900 ml 252.5 ml Balance 900 ml 252.5 ml IV Total 900 ml 252.5 ml # Voids 1 2 Current Medications Medications (Trade) Dose Ordered Sig/Yousuf Route PRN Reason Start Time Stop Time Status Last Admin Dose Admin Acetaminophen (Tylenol) 650 mg Q4H PRN ORAL fever 11/12/16 03:34 12/12/16 03:33 Al Hydroxide/Mg Hydroxide 30 ml 30 ml Q6H PRN GT dyspepsia 11/14/16 17:25 12/12/16 03:33 11/17/16 18:40 Amiodarone HCl (Cordarone) 100 mg DAILY GT 11/12/16 09:00 12/12/16 08:59 11/19/16 11:09 Apixaban (Eliquis) 2.5 mg Q12HR ORAL 11/12/16 09:00 12/12/16 08:59 11/19/16 11:04 Bisacodyl (Dulcolax) 10 mg TWICE A DAY RECTAL 11/19/16 10:00 12/19/16 09:59 11/19/16 11:33 Bupropion HCl (Wellbutrin) 75 mg Q12HR GT 11/18/16 11:06 12/12/16 08:59 11/19/16 11:04 Dextrose (Dextrose 50%) STAT PRN IV Hypoglycemia 11/12/16 03:35 12/12/16 03:34 Dextrose/Sodium Chloride (D5 0.45% NS) 1,000 ml @ 75 mls/hr [id number] IV 11/16/16 09:00 12/16/16 08:59 11/19/16 03:10 Doxazosin Mesylate (Cardura) 2 mg BEDTIME GT 11/12/16 21:00 12/12/16 20:59 11/18/16 21:16 Finasteride (Proscar) 5 mg DAILY GT 11/12/16 09:00 12/12/16 08:59 11/19/16 11:05 Insulin Aspart (NovoLOG) Q6HR SUBQ 11/14/16 18:00 12/14/16 17:59 11/14/16 19:08 Levothyroxine Sodium (Synthroid) 75 mcg DAILY@0630 ORAL 11/17/16 06:30 12/17/16 06:29 11/19/16 06:17 Metoclopramide HCl (Reglan) 10 mg EVERY 8 HOURS IM 11/19/16 14:00 12/19/16 13:59 Metoclopramide HCl (Reglan) 10 mg Q8H PRN IVP Nausea & Vomiting 11/16/16 14:45 12/16/16 14:44 Metoprolol Tartrate (Lopressor) 25 mg Q12H GT 11/17/16 21:00 12/17/16 20:59 11/18/16 21:15 Ondansetron HCl (Zofran) 4 mg Q6H PRN IVP Nausea & Vomiting 11/12/16 03:38 12/12/16 03:37 11/17/16 18:40 Polyethylene Glycol (Miralax) 17 gm HSPRN PRN GT Constipation 11/12/16 03:39 12/12/16 03:38 11/15/16 17:45 Valproic Acid (Depakene) 250 mg DAILY GT 11/12/16 09:00 12/12/16 08:59 11/19/16 11:04 Vancomycin HCl (Vanco rx to dose) 1 ea DAILY PRN MISC . 11/12/16 09:00 12/12/16 08:59 Zolpidem Tartrate (Ambien) 5 mg HSPRN PRN GT Insomnia 11/14/16 17:24 12/12/16 03:33 Objective Neck: normal alignment. S/P Thyroid biopsy. Cardiovascular: regular rhythm. Pacer left subclavian. Respiratory/Chest: lungs clear Abdomen: no mass Extremities: non-tender Neurologic: alert Skin: warm/dry HILDA MEJIA Nov 19, 2016 14:16
[2016-11-19 16:00] VITALS: BP 126/87
--- NOTE | 2016-11-19 17:36 | Pulmonology Progress Note ---
Assessment/Plan Problems: (1) Respiratory insufficiency (2) Cellulitis (3) HTN (hypertension) (4) History of CVA (cerebrovascular accident) Assessment/Plan improving continue antibiotics biopsy results noted respiratory treatment titrate fio2 to sat of 92% Subjective ROS Limited/Unobtainable: No Allergies: Coded Allergies: AUBREY INHIBITORS (Verified Allergy, Unknown, ANGIOEDEMA, 09/17/12) Objective Last 24 Hour Vital Signs Date Time Temp Pulse Resp B/P Pulse Ox O2 Delivery O2 Flow Rate FiO2 11/19/16 12:17 97.2 60 20 101/71 96 Room Air 11/19/16 09:00 61 116/67 11/19/16 08:37 98.2 63 20 93/54 98 Room Air 11/19/16 04:00 97.6 62 18 96/64 97 Room Air 11/19/16 00:00 96.8 60 18 92/60 97 Room Air 11/18/16 21:15 67 121/82 11/18/16 20:00 97.7 74 20 122/74 96 Room Air Intake and Output 11/18/16 11/19/16 19:00 07:00 Intake Total 900 ml 252.5 ml Balance 900 ml 252.5 ml IV Total 900 ml 252.5 ml # Voids 1 2 General Appearance: WD/WN HEENT: normocephalic, atraumatic Respiratory/Chest: chest wall non-tender, lungs clear Cardiovascular: normal peripheral pulses, normal rate Abdomen: normal bowel sounds, soft, non tender Genitourinary: normal external genitalia Extremities: no cyanosis Skin: no lesions Current Medications Medications (Trade) Dose Ordered Sig/Yousuf Route PRN Reason Start Time Stop Time Status Last Admin Dose Admin Acetaminophen (Tylenol) 650 mg Q4H PRN ORAL fever 11/12/16 03:34 12/12/16 03:33 Al Hydroxide/Mg Hydroxide 30 ml 30 ml Q6H PRN GT dyspepsia 11/14/16 17:25 12/12/16 03:33 11/17/16 18:40 Amiodarone HCl (Cordarone) 100 mg DAILY GT 11/12/16 09:00 12/12/16 08:59 11/19/16 11:09 Apixaban (Eliquis) 2.5 mg Q12HR ORAL 11/12/16 09:00 12/12/16 08:59 11/19/16 11:04 Bisacodyl (Dulcolax) 10 mg TWICE A DAY RECTAL 11/19/16 10:00 12/19/16 09:59 11/19/16 11:33 Bupropion HCl (Wellbutrin) 75 mg Q12HR GT 11/18/16 11:06 12/12/16 08:59 11/19/16 11:04 Dextrose (Dextrose 50%) STAT PRN IV Hypoglycemia 11/12/16 03:35 12/12/16 03:34 Dextrose/Sodium Chloride (D5 0.45% NS) 1,000 ml @ 75 mls/hr [id number] IV 11/16/16 09:00 12/16/16 08:59 11/19/16 03:10 Doxazosin Mesylate (Cardura) 2 mg BEDTIME GT 11/12/16 21:00 12/12/16 20:59 11/18/16 21:16 Finasteride (Proscar) 5 mg DAILY GT 11/12/16 09:00 12/12/16 08:59 11/19/16 11:05 Insulin Aspart (NovoLOG) Q6HR SUBQ 11/14/16 18:00 12/14/16 17:59 11/14/16 19:08 Levothyroxine Sodium (Synthroid) 75 mcg DAILY@0630 ORAL 11/17/16 06:30 12/17/16 06:29 11/19/16 06:17 Metoclopramide HCl (Reglan) 10 mg EVERY 8 HOURS IM 11/19/16 14:00 12/19/16 13:59 Metoclopramide HCl (Reglan) 10 mg Q8H PRN IVP Nausea & Vomiting 11/16/16 14:45 12/16/16 14:44 Metoprolol Tartrate (Lopressor) 25 mg Q12H GT 11/17/16 21:00 12/17/16 20:59 11/18/16 21:15 Ondansetron HCl (Zofran) 4 mg Q6H PRN IVP Nausea & Vomiting 11/12/16 03:38 12/12/16 03:37 11/17/16 18:40 Polyethylene Glycol (Miralax) 17 gm HSPRN PRN GT Constipation 11/12/16 03:39 12/12/16 03:38 11/15/16 17:45 Valproic Acid (Depakene) 250 mg DAILY GT 11/12/16 09:00 12/12/16 08:59 11/19/16 11:04 Vancomycin HCl (Vanco rx to dose) 1 ea DAILY PRN MISC . 11/12/16 09:00 12/12/16 08:59 Zolpidem Tartrate (Ambien) 5 mg HSPRN PRN GT Insomnia 11/14/16 17:24 12/12/16 03:33 MARY SELF Nov 19, 2016 17:36
--- NOTE | 2016-11-19 17:48 | General Surgery Progress Note ---
General Surgery-Progress Note Subjective Symptoms: pain absent, passing flatus, BM Objective Last 24 Hour Vital Signs Date Time Temp Pulse Resp B/P Pulse Ox O2 Delivery O2 Flow Rate FiO2 11/19/16 12:17 97.2 60 20 101/71 96 Room Air 11/19/16 09:00 61 116/67 11/19/16 08:37 98.2 63 20 93/54 98 Room Air 11/19/16 04:00 97.6 62 18 96/64 97 Room Air 11/19/16 00:00 96.8 60 18 92/60 97 Room Air 11/18/16 21:15 67 121/82 11/18/16 20:00 97.7 74 20 122/74 96 Room Air I&O Intake and Output 11/18/16 11/19/16 19:00 07:00 Intake Total 900 ml 252.5 ml Balance 900 ml 252.5 ml IV Total 900 ml 252.5 ml # Voids 1 2 Respiratory: clear Abdomen: soft, non-tender, present bowel sounds Extremities: no tenderness Assessment Additional Comments Ileus Plan Additional Comments Agree with gastrografin small bowel follow thru there is no pain he had 2 BM today AURELIA ROGERS Nov 19, 2016 17:48
--- NOTE | 2016-11-19 18:00 | Infectious Diseases Prog Note ---
Assessment/Plan Problems: (1) Cellulitis and abscess of face Assessment & Plan: improving on zosyn and vancomycin empirically , vancomycin on hold since it is super theraputic , CT scan of the sinuses showed soft tissue swelling, and no abscess, can't do an MRI of the head with contrast to rule out any soft tissue abscess or infiltration since he has pacemaker. will continue to monitor on antibiotics, ENT is following (2) Cellulitis Assessment & Plan: of the neck , CT scan showed cellulitis and right lower thyroids pole mass S/P biopsy with pathology is pending , continue zosyn and vancomycin . (3) Diabetes Assessment & Plan: recommend tight glycemic control to keep blood glucose between 80-120 (4) HTN (hypertension) Assessment & Plan: continue meds to keep SBP <140 (5) Thyroid mass of unclear etiology Assessment & Plan: had US and FNA biopsy , pathology showed benign nodule , endocrinology is following (6) Ileus Assessment & Plan: with recurrent vomiting, had 2 BM today with no abdominal pain. general surgery is following Subjective Gastrointestinal/Abdominal: Reports: bloating, nausea, vomiting Allergies: Coded Allergies: AUBREY INHIBITORS (Verified Allergy, Unknown, ANGIOEDEMA, 09/17/12) All Systems: reviewed and negative except above Objective Vital Signs Last 24 Hour Vital Signs Date Time Temp Pulse Resp B/P Pulse Ox O2 Delivery O2 Flow Rate FiO2 11/19/16 16:00 97.5 64 18 126/87 91 Room Air 11/19/16 12:17 97.2 60 20 101/71 96 Room Air 11/19/16 09:00 61 116/67 11/19/16 08:37 98.2 63 20 93/54 98 Room Air 11/19/16 04:00 97.6 62 18 96/64 97 Room Air 11/19/16 00:00 96.8 60 18 92/60 97 Room Air 11/18/16 21:15 67 121/82 11/18/16 20:00 97.7 74 20 122/74 96 Room Air Height (Feet): 5 Height (Inches): 9.00 Weight (Pounds): 170 General Appearance: WD/WN, no acute distress HEENT: normocephalic, atraumatic, anicteric, mucous membranes moist, PERRL Respiratory/Chest: chest wall non-tender, lungs clear, normal breath sounds, no respiratory distress, no accessory muscle use Cardiovascular: normal peripheral pulses, normal rate, regular rhythm, no gallop/murmur Abdomen: no organomegaly, no mass, no scars, hypoactive bowel sounds, distended , tender Extremities: no cyanosis, no clubbing Skin: no rash, no lesions, no ulcers Current Medications Medications (Trade) Dose Ordered Sig/Yousuf Route PRN Reason Start Time Stop Time Status Last Admin Dose Admin Acetaminophen (Tylenol) 650 mg Q4H PRN ORAL fever 11/12/16 03:34 12/12/16 03:33 Al Hydroxide/Mg Hydroxide 30 ml 30 ml Q6H PRN GT dyspepsia 11/14/16 17:25 12/12/16 03:33 11/17/16 18:40 Amiodarone HCl (Cordarone) 100 mg DAILY GT 11/12/16 09:00 12/12/16 08:59 11/19/16 11:09 Apixaban (Eliquis) 2.5 mg Q12HR ORAL 11/12/16 09:00 12/12/16 08:59 11/19/16 11:04 Bisacodyl (Dulcolax) 10 mg ONCE ONCE RECTAL 11/20/16 08:45 11/20/16 08:46 UNV Bisacodyl (Dulcolax) 10 mg TWICE A DAY RECTAL 11/19/16 10:00 12/19/16 09:59 11/19/16 11:33 Bupropion HCl (Wellbutrin) 75 mg Q12HR GT 11/18/16 11:06 12/12/16 08:59 11/19/16 11:04 Dextrose (Dextrose 50%) STAT PRN IV Hypoglycemia 11/12/16 03:35 12/12/16 03:34 Dextrose/Sodium Chloride (D5 0.45% NS) 1,000 ml @ 75 mls/hr [id number] IV 11/16/16 09:00 12/16/16 08:59 11/19/16 03:10 Doxazosin Mesylate (Cardura) 2 mg BEDTIME GT 11/12/16 21:00 12/12/16 20:59 11/18/16 21:16 Finasteride (Proscar) 5 mg DAILY GT 11/12/16 09:00 12/12/16 08:59 11/19/16 11:05 Insulin Aspart (NovoLOG) Q6HR SUBQ 11/14/16 18:00 12/14/16 17:59 11/14/16 19:08 Levothyroxine Sodium (Synthroid) 75 mcg DAILY@0630 ORAL 11/17/16 06:30 12/17/16 06:29 11/19/16 06:17 Metoclopramide HCl (Reglan) 10 mg EVERY 8 HOURS IM 11/19/16 14:00 12/19/16 13:59 Metoclopramide HCl (Reglan) 10 mg Q8H PRN IVP Nausea & Vomiting 11/16/16 14:45 12/16/16 14:44 Metoprolol Tartrate (Lopressor) 25 mg Q12H GT 11/17/16 21:00 12/17/16 20:59 11/18/16 21:15 Ondansetron HCl (Zofran) 4 mg Q6H PRN IVP Nausea & Vomiting 11/12/16 03:38 12/12/16 03:37 11/17/16 18:40 Polyethylene Glycol (Miralax) 17 gm HSPRN PRN GT Constipation 11/12/16 03:39 12/12/16 03:38 11/15/16 17:45 Valproic Acid (Depakene) 250 mg DAILY GT 11/12/16 09:00 12/12/16 08:59 11/19/16 11:04 Vancomycin HCl (Vanco rx to dose) 1 ea DAILY PRN MISC . 11/12/16 09:00 12/12/16 08:59 Zolpidem Tartrate (Ambien) 5 mg HSPRN PRN GT Insomnia 11/14/16 17:24 12/12/16 03:33 Aida Frederick M.D. Nov 19, 2016 18:00
[2016-11-19 20:00] VITALS: BP 132/83
[2016-11-19] MEDS: Doxazosin 1mg Tab GT SCH (20:54)
[2016-11-19] MEDS ORDERED: Metoclopramide 10mg/2ml Inj IVP PRN (21:17)
[2016-11-19] MEDS: Metoclopramide 10mg/2ml Inj IVP SCH (22:07)
[2016-11-19] MEDS: Piperacillin/Tazobactam 3.375 GM in D5W 110 ML IVPB SCH (22:07)
[2016-11-20] VITALS: BP 118/73
[2016-11-20 03:50] VITALS: BP 124/79
[2016-11-20] MEDS: NovoLOG Insulin Flexpen SUBQ SCH ×4 (05:31→17:59)
[2016-11-20] MEDS: Metoclopramide 10mg/2ml Inj IVP SCH ×3 (06:25→22:45)
[2016-11-20] MEDS: D5 1/2NS 1,000 ML IV SCH ×2 (06:25→17:53)
[2016-11-20] MEDS: Piperacillin/Tazobactam 3.375 GM in D5W 110 ML IVPB SCH ×3 (06:25→22:55)
--- NOTE | 2016-11-20 06:56 | General Progress Note ---
Assessment/Plan Problem List: (1) Hypothyroidism ICD Codes: E03.9 - Hypothyroidism, unspecified SNOMED: 84478827 (2) Swelling of left side of face ICD Codes: R22.0 - Localized swelling, mass and lump, head SNOMED: 419089988 (3) Cellulitis and abscess of face ICD Codes: L03.211 - Cellulitis of face; L02.01 - Cutaneous abscess of face SNOMED: 176690596 (4) PEG (percutaneous endoscopic gastrostomy) adjustment/replacement/removal ICD Codes: Z43.1 - Encounter for attention to gastrostomy SNOMED: 743160342 (5) Dysphagia ICD Codes: R13.10 - Dysphagia SNOMED: 52536810 (6) History of respiratory failure ICD Codes: Z87.09 - History of respiratory failure SNOMED: 331627184 (7) History of CVA (cerebrovascular accident) ICD Codes: Z86.73 - History of CVA (cerebrovascular accident) SNOMED: 684477516 (8) Thyroid mass of unclear etiology ICD Codes: E07.89 - Other specified disorders of thyroid SNOMED: 808739150 (9) Diabetes ICD Codes: E11.9 - Diabetes SNOMED: 96711646 Assessment/Plan thyroid mass is benign continue Levothyroxine 75 mcg daily TSH should be repeated in 3-4 weeks for further dosage adjustment glucose values are well controlled continue blood glucose monitoring and Novolog coverage Subjective ROS Limited/Unobtainable: Yes Allergies: Coded Allergies: AUBREY INHIBITORS (Verified Allergy, Unknown, ANGIOEDEMA, 09/17/12) Subjective events noted - interval notes reviewed Objective Last 24 Hour Vital Signs Date Time Temp Pulse Resp B/P Pulse Ox O2 Delivery O2 Flow Rate FiO2 11/20/16 03:50 97.5 70 18 124/79 96 Room Air 11/20/16 00:00 97.3 56 18 118/73 97 Room Air 11/19/16 20:00 96.9 68 19 132/83 97 Room Air 11/19/16 16:00 97.5 64 18 126/87 91 Room Air 11/19/16 12:17 97.2 60 20 101/71 96 Room Air 11/19/16 09:00 61 116/67 11/19/16 08:37 98.2 63 20 93/54 98 Room Air Intake and Output 11/19/16 11/20/16 19:00 07:00 Intake Total 487.5 ml 225 ml Balance 487.5 ml 225 ml IV Total 487.5 ml 225 ml # Voids 3 1 # Bowel Movements 2 Laboratory Tests 11/20/16 06:10: Random Vancomycin Level [Pending] Height (Feet): 5 Height (Inches): 9.00 Weight (Pounds): 170 General Appearance: no apparent distress EENT: pale conjunctivae Neck: normal alignment Cardiovascular: regular rhythm Respiratory/Chest: decreased breath sounds Abdomen: normal bowel sounds Objective Current Medications Medications (Trade) Dose Ordered Sig/Yousuf Route PRN Reason Start Time Stop Time Status Last Admin Dose Admin Acetaminophen (Tylenol) 650 mg Q4H PRN ORAL fever 11/12/16 03:34 12/12/16 03:33 Al Hydroxide/Mg Hydroxide 30 ml 30 ml Q6H PRN GT dyspepsia 11/14/16 17:25 12/12/16 03:33 11/17/16 18:40 Amiodarone HCl (Cordarone) 100 mg DAILY GT 11/12/16 09:00 12/12/16 08:59 11/19/16 11:09 Apixaban (Eliquis) 2.5 mg Q12HR ORAL 11/12/16 09:00 12/12/16 08:59 11/19/16 11:04 Bisacodyl (Dulcolax) 10 mg ONCE ONCE RECTAL 11/20/16 08:45 11/20/16 08:46 Bisacodyl (Dulcolax) 10 mg TWICE A DAY RECTAL 11/19/16 10:00 12/19/16 09:59 11/19/16 11:33 Bupropion HCl (Wellbutrin) 75 mg Q12HR GT 11/18/16 11:06 12/12/16 08:59 11/19/16 11:04 Dextrose (Dextrose 50%) STAT PRN IV Hypoglycemia 11/12/16 03:35 12/12/16 03:34 Dextrose/Sodium Chloride (D5 0.45% NS) 1,000 ml @ 75 mls/hr [id number] IV 11/16/16 09:00 12/16/16 08:59 11/20/16 06:25 Doxazosin Mesylate (Cardura) 2 mg BEDTIME GT 11/12/16 21:00 12/12/16 20:59 11/18/16 21:16 Finasteride (Proscar) 5 mg DAILY GT 11/12/16 09:00 12/12/16 08:59 11/19/16 11:05 Insulin Aspart (NovoLOG) Q6HR SUBQ 11/14/16 18:00 12/14/16 17:59 11/14/16 19:08 Levothyroxine Sodium (Synthroid) 75 mcg DAILY@0630 ORAL 11/17/16 06:30 12/17/16 06:29 11/19/16 06:17 Metoclopramide HCl 10 mg 10 mg EVERY 8 HOURS IVP 11/19/16 22:00 12/19/16 21:59 11/20/16 06:25 Metoclopramide HCl (Reglan) 10 mg Q8H PRN IVP Nausea & Vomiting 11/19/16 21:17 12/16/16 14:44 Metoprolol Tartrate (Lopressor) 25 mg Q12H GT 11/17/16 21:00 12/17/16 20:59 11/18/16 21:15 Ondansetron HCl (Zofran) 4 mg Q8H PRN IVP Nausea & Vomiting 11/19/16 21:15 12/19/16 21:14 Piperacillin Sod/ Tazobactam Sod/ Dextrose (Zosyn/D5W) 110 ml @ 27.5 mls/hr Q8HR IVPB 11/19/16 22:00 11/26/16 21:59 11/20/16 06:25 Polyethylene Glycol (Miralax) 17 gm HSPRN PRN GT Constipation 11/12/16 03:39 12/12/16 03:38 11/15/16 17:45 Valproic Acid (Depakene) 250 mg DAILY GT 11/12/16 09:00 12/12/16 08:59 11/19/16 11:04 Vancomycin HCl (Vanco rx to dose) 1 ea DAILY PRN MISC . 11/12/16 09:00 12/12/16 08:59 Zolpidem Tartrate (Ambien) 5 mg HSPRN PRN GT Insomnia 11/14/16 17:24 12/12/16 03:33 Item Value Date Time Bedside Blood Glucose 91 mg/dl 11/20/16 0531 Bedside Blood Glucose 99 mg/dl 11/20/16 0000 Bedside Blood Glucose 130 mg/dl H 11/19/16 1820 Bedside Blood Glucose 100 mg/dl 11/19/16 1232 Bedside Blood Glucose 101 mg/dl 11/19/16 0600 Bedside Blood Glucose 105 mg/dl 11/19/16 0000 BETTY GERMAIN Nov 20, 2016 06:56
[2016-11-20 08:00] VITALS: BP 118/74
[2016-11-20] MEDS: Metoprolol Tartrate 12.5mg TAB GT SCH ×2 (08:45→21:00)
[2016-11-20] MEDS: Valproic Acid 250mg/5ml Liquid GT SCH (08:46)
[2016-11-20] MEDS: BuPROPion 75mg Tab GT SCH ×2 (08:46→21:00)
[2016-11-20] MEDS: Eliquis 2.5mg tablet ORAL SCH ×2 (08:47→21:00)
[2016-11-20] MEDS: Amiodarone 200mg tab GT SCH (08:49)
--- NOTE | 2016-11-20 10:30 | Pre-Procedure Note/Attestation ---
Pre-Procedure Note/Attestation Complete Prior to Procedure Planned Procedure: not applicable Procedure Narrative: Fiberooptic laryngoscopoy Indications for Procedure Pre-Operative Diagnosis: Dysphagia, weak voice Attestation I attest that I discussed the nature of the procedure; its benefits; risks and complications; and alternatives (and the risks and benefits of such alternatives ), prior to the procedure, with the patient (or the patient's legal advertising sales representative). I attest that, if there was a reasonable possibility of needing a blood transfusion, the patient (or the patient's legal advertising sales representative) was given the [facility] standardized written summary, pursuant to the Shaji Roland Blood Safety Act ([place] Health and Safety Code # 1645, as amended). I attest that I re-evaluated the patient just prior to the surgery and that there has been no change in the patient's H&P. Nurse stated pt is OK to sign his consent. CONI MONREAL Nov 20, 2016 10:30
--- NOTE | 2016-11-20 10:31 | Brief Operative Note ---
Immediate Post Operative Note Operative Note Pre-op Diagnosis: Dysphagia, weak voice Procedure: Fiberoptic laryngoscopy Post-op Diagnosis: same as pre-op Surgeon: Lisa Monreal Physician Primary Care Sports Medicine: none Additional Surgeons: none Anesthesiologist: none Anesthesia: other Specimen: none Complications: none Estimated Blood Loss: none Drains: none CONI MONREAL Nov 20, 2016 10:31
--- NOTE | 2016-11-20 10:41 | Diagnostic Imaging Report ---
Indication: Abdominal distention, abdominal pain Technique: Water-soluble contrast injected via gastrostomy tube. Serial overhead films obtained Comparison: Operating Systems Programmer film compared to prior abdominal radiograph of 6 hours earlier Findings: Single gastrostomy T-fastener remains on the industrial order clerk film. Gastrostomy tube is in place. There are dilated loops of small bowel diffusely, appearing similar to the prior study. Slow transit of contrast through diffusely dilated small bowel loops is noted. However, at 6 hours, contrast is seen within the ascending colon. No nondilated distal small bowel is demonstrated Impression: Diffuse distention of small bowel, with slow transit of contrast,: Opacified at 6 hours. As previously discussed, findings most likely represent ileus
--- NOTE | 2016-11-20 10:54 | General Progress Note ---
Assessment/Plan Problem List: (1) History of CVA (cerebrovascular accident) ICD Codes: Z86.73 - History of CVA (cerebrovascular accident) SNOMED: 062917231 (2) History of respiratory failure ICD Codes: Z87.09 - History of respiratory failure SNOMED: 789298657 (3) Dysphagia ICD Codes: R13.10 - Dysphagia SNOMED: 78669479 (4) PEG (percutaneous endoscopic gastrostomy) adjustment/replacement/removal ICD Codes: Z43.1 - Encounter for attention to gastrostomy SNOMED: 963360672 (5) Cellulitis and abscess of face ICD Codes: L03.211 - Cellulitis of face; L02.01 - Cutaneous abscess of face SNOMED: 797043499 (6) Swelling of left side of face ICD Codes: R22.0 - Localized swelling, mass and lump, head SNOMED: 553185971 (7) Diabetes ICD Codes: E11.9 - Diabetes SNOMED: 79425057 (8) HTN (hypertension) ICD Codes: I10 - HTN (hypertension) SNOMED: 31622600 (9) Sepsis ICD Codes: A41.9 - Sepsis SNOMED: 99058597 (10) Thyroid mass of unclear etiology ICD Codes: E07.89 - Other specified disorders of thyroid SNOMED: 422830765 Status: progressing Assessment/Plan facial celluitis improving sbo sp vomit surgical f/u by dr munoz for sbo Subjective ROS Limited/Unobtainable: Yes Allergies: Coded Allergies: AUBREY INHIBITORS (Verified Allergy, Unknown, ANGIOEDEMA, 09/17/12) Objective Last 24 Hour Vital Signs Date Time Temp Pulse Resp B/P Pulse Ox O2 Delivery O2 Flow Rate FiO2 11/20/16 08:45 64 118/74 11/20/16 08:00 97.5 64 19 118/74 97 Room Air 11/20/16 03:50 97.5 70 18 124/79 96 Room Air 11/20/16 00:00 97.3 56 18 118/73 97 Room Air 11/19/16 20:00 96.9 68 19 132/83 97 Room Air 11/19/16 16:00 97.5 64 18 126/87 91 Room Air 11/19/16 12:17 97.2 60 20 101/71 96 Room Air Intake and Output 11/19/16 11/20/16 19:00 07:00 Intake Total 487.5 ml 1010.0 ml Balance 487.5 ml 1010.0 ml IV Total 487.5 ml 1010.0 ml # Voids 3 2 # Bowel Movements 2 1 Laboratory Tests 11/20/16 06:10: Random Vancomycin Level 38.2 Height (Feet): 5 Height (Inches): 9.00 Weight (Pounds): 170 Neck: supple Cardiovascular: normal rate Respiratory/Chest: lungs clear Abdomen: soft Laina Pereira MD Nov 20, 2016 10:54
[2016-11-20 12:05] VITALS: BP 100/60
--- NOTE | 2016-11-20 14:28 | General Surgery Progress Note ---
General Surgery-Progress Note Subjective Symptoms: pain absent, BM Objective Last 24 Hour Vital Signs Date Time Temp Pulse Resp B/P Pulse Ox O2 Delivery O2 Flow Rate FiO2 11/20/16 12:05 98.1 60 20 100/60 94 Room Air 11/20/16 08:45 64 118/74 11/20/16 08:00 97.5 64 19 118/74 97 Room Air 11/20/16 03:50 97.5 70 18 124/79 96 Room Air 11/20/16 00:00 97.3 56 18 118/73 97 Room Air 11/19/16 20:00 96.9 68 19 132/83 97 Room Air 11/19/16 16:00 97.5 64 18 126/87 91 Room Air I&O Intake and Output 11/19/16 11/20/16 19:00 07:00 Intake Total 487.5 ml 1010.0 ml Balance 487.5 ml 1010.0 ml IV Total 487.5 ml 1010.0 ml # Voids 3 2 # Bowel Movements 2 1 Respiratory: clear Abdomen: soft, flat, non-tender, present bowel sounds Extremities: no tenderness Laboratory Tests Test 11/20/16 06:10 Random Vancomycin Level 38.2 ug/mL Additional Comments small bowel follow thru went to colon Assessment Additional Comments Ileus Plan Additional Comments Per Dr. Louise . there is no SBO AURELIA ROGERS Nov 20, 2016 14:28
--- NOTE | 2016-11-20 15:32 | General Progress Note ---
Assessment/Plan Assessment/Plan ASSESSMENT: 1. Left-sided facial erythema, cellulitis, improved. Continue abx prn 2. Anemia secondary to chronic disease. 3. Right lower lobe thyroid nodule 19 x 11mm, s/p fna - benign 4. Diabetes mellitus. 5. Atrial fibrillation. 6. Cellulitis of the face. 7. Diabetes mellitus. 8. Hypertension. 9. Psychiatric history. 10. Afib on eliquis RECOMMENDATIONS: 1. Monitor counts. 2. Transfuse to hgb >7 3. MRI query head pending 4. Followup on ID, endo, Pulmonary recs, and ENT recs 5. Reviewed pathology of thyroid - benign 6. DVT ppx with eliquis. 7. GI ppx as needed. 8. Pain control. 9. Abx as needed. 10. DW staff Thank you, Jax Alcaraz MD Subjective Constitutional: Reports: no symptoms HEENT: Reports: no symptoms Cardiovascular: Reports: no symptoms Respiratory: Reports: no symptoms Gastrointestinal/Abdominal: Reports: no symptoms Genitourinary: Reports: no symptoms Neurologic/Psychiatric: Reports: other Endocrine: Reports: no symptoms Hematologic/Lymphatic: Reports: anemia Allergies: Coded Allergies: AUBREY INHIBITORS (Verified Allergy, Unknown, ANGIOEDEMA, 09/17/12) Subjective stable, without bleeding, no night sweats, face has improved Objective Last 24 Hour Vital Signs Date Time Temp Pulse Resp B/P Pulse Ox O2 Delivery O2 Flow Rate FiO2 11/20/16 12:05 98.1 60 20 100/60 94 Room Air 11/20/16 08:45 64 118/74 11/20/16 08:00 97.5 64 19 118/74 97 Room Air 11/20/16 03:50 97.5 70 18 124/79 96 Room Air 11/20/16 00:00 97.3 56 18 118/73 97 Room Air 11/19/16 20:00 96.9 68 19 132/83 97 Room Air 11/19/16 16:00 97.5 64 18 126/87 91 Room Air Intake and Output 11/19/16 11/20/16 19:00 07:00 Intake Total 487.5 ml 1010.0 ml Balance 487.5 ml 1010.0 ml IV Total 487.5 ml 1010.0 ml # Voids 3 2 # Bowel Movements 2 1 Laboratory Tests 11/20/16 06:10: Random Vancomycin Level 38.2 Height (Feet): 5 Height (Inches): 9.00 Weight (Pounds): 170 General Appearance: alert EENT: TMs normal Neck: supple Cardiovascular: regular rhythm Respiratory/Chest: no respiratory distress Abdomen: soft Extremities: non-tender Edema: 1+ Leg (L), 1+ Leg (R) Edema: mild edema Neurologic: alert Skin: warm/dry Jax Alcaraz Nov 20, 2016 15:32
[2016-11-20 16:00] VITALS: BP 99/56
--- NOTE | 2016-11-20 17:07 | Cardiac Electrophysiology PN ---
Assessment/Plan Status Narrative Technically difficult study due to poor acoustic windows and GI Tube blocking scan area. Apical views obtained only. Study quality precludes accurate assessment of regional wall motion. M-mode measurements of left ventricle not obtainable. Normal left ventricular chamber size, grossly systolic function and wall motion to extent visualized. Left ventricular ejection fraction estimated to be 55-60 %. Mild ventricular hypertrophy. No evidence of pericardial fat or effusion. All other cardiac chamber sizes are within normal limits. Aortic valve calcification with decreased cusp excursion. Moderately thickened mitral valve leaflets with normal excursion. Moderate mitral annulus and aortic root calcification. Pulmonic valve not visualized. Normal tricuspid valve structure. Subcostal views not obtainable. Assessment/Plan 1. Status post [facility] [place] permanent pacemaker implantation with normal function 2. Paroxysmal atrial fibrillation, in sinus rhythm, on amiodarone 100 mg daily and Eliquis 2.5 mg twice a day for anticoagulation. 3. Hypotension. Resolved. Now on metoprolol 25 bid. Echocardiogram EF 55% 4. Hypothyroidism, on Synthroid under management of Dr. Chairez. 5. Left facial cellulitis improving on iv ABx. CT scan of the sinuses showed soft tissue swelling, and no abscess 6. Dysphagia, status post gastrostomy tube. 7. Diabetes. 8. Thyroid mass. FNA of thyroid mass performed - benign pathology. Follow up Dr Mihaela KEENE RN Subjective Subjective Alert in NAD.On iv antibiotics.Still has nausea and will be getting upper Gi series. Objective Last 24 Hour Vital Signs Date Time Temp Pulse Resp B/P Pulse Ox O2 Delivery O2 Flow Rate FiO2 11/20/16 16:00 97.0 65 18 99/56 97 Room Air 11/20/16 12:05 98.1 60 20 100/60 94 Room Air 11/20/16 08:45 64 118/74 11/20/16 08:00 97.5 64 19 118/74 97 Room Air 11/20/16 03:50 97.5 70 18 124/79 96 Room Air 11/20/16 00:00 97.3 56 18 118/73 97 Room Air 11/19/16 20:00 96.9 68 19 132/83 97 Room Air Intake and Output 11/19/16 11/20/16 19:00 07:00 Intake Total 487.5 ml 1010.0 ml Balance 487.5 ml 1010.0 ml IV Total 487.5 ml 1010.0 ml # Voids 3 2 # Bowel Movements 2 1 Laboratory Tests Test 11/20/16 06:10 Random Vancomycin Level 38.2 ug/mL Objective Neck: normal alignment. S/P Thyroid biopsy. Cardiovascular: regular rhythm. Pacer left subclavian. Respiratory/Chest: lungs clear Abdomen: no mass Extremities: non-tender Neurologic: alert Skin: warm/dry HILDA MEJIA Nov 20, 2016 17:07
--- NOTE | 2016-11-20 17:23 | Infectious Diseases Prog Note ---
Assessment/Plan Problems: (1) Cellulitis and abscess of face Assessment & Plan: improving on zosyn and vancomycin empirically , vancomycin on hold since it is super therapeutic , will D/C vancomycin , CT scan of the sinuses showed soft tissue swelling, and no abscess, can't do an MRI of the head with contrast to rule out any soft tissue abscess or infiltration since he has pacemaker. will continue to monitor on antibiotics for now , ENT is following (2) Cellulitis Assessment & Plan: of the neck , CT scan showed cellulitis and right lower thyroids pole mass S/P biopsy with pathology is pending , continue zosyn and vancomycin . (3) Diabetes Assessment & Plan: recommend tight glycemic control to keep blood glucose between 80-120 (4) HTN (hypertension) Assessment & Plan: continue meds to keep SBP <140 (5) Thyroid mass of unclear etiology Assessment & Plan: had US and FNA biopsy , pathology showed benign nodule , endocrinology is following (6) Ileus Assessment & Plan: with recurrent vomiting, no abdominal pain. general surgery is following Subjective HEENT: Reports: other - left facial swelling with redness, Gastrointestinal/Abdominal: Reports: bloating, nausea, vomiting Allergies: Coded Allergies: AUBREY INHIBITORS (Verified Allergy, Unknown, ANGIOEDEMA, 09/17/12) All Systems: reviewed and negative except above Objective Vital Signs Last 24 Hour Vital Signs Date Time Temp Pulse Resp B/P Pulse Ox O2 Delivery O2 Flow Rate FiO2 11/20/16 16:00 97.0 65 18 99/56 97 Room Air 11/20/16 12:05 98.1 60 20 100/60 94 Room Air 11/20/16 08:45 64 118/74 11/20/16 08:00 97.5 64 19 118/74 97 Room Air 11/20/16 03:50 97.5 70 18 124/79 96 Room Air 11/20/16 00:00 97.3 56 18 118/73 97 Room Air 11/19/16 20:00 96.9 68 19 132/83 97 Room Air Height (Feet): 5 Height (Inches): 9.00 Weight (Pounds): 170 General Appearance: WD/WN, no acute distress HEENT: atraumatic, anicteric, mucous membranes moist, other - left facial swelling Respiratory/Chest: chest wall non-tender, lungs clear, normal breath sounds, no respiratory distress, no accessory muscle use Cardiovascular: normal peripheral pulses, normal rate, regular rhythm, no gallop/murmur, no JVD Abdomen: normal bowel sounds, soft, non tender, no organomegaly, non distended , no mass Extremities: no cyanosis, no clubbing Skin: no rash, no lesions, no ulcers Laboratory Tests Test 11/20/16 06:10 Random Vancomycin Level 38.2 ug/mL Current Medications Medications (Trade) Dose Ordered Sig/Yousuf Route PRN Reason Start Time Stop Time Status Last Admin Dose Admin Acetaminophen (Tylenol) 650 mg Q4H PRN ORAL fever 11/12/16 03:34 12/12/16 03:33 Al Hydroxide/Mg Hydroxide 30 ml 30 ml Q6H PRN GT dyspepsia 11/14/16 17:25 12/12/16 03:33 11/17/16 18:40 Amiodarone HCl (Cordarone) 100 mg DAILY GT 11/12/16 09:00 12/12/16 08:59 11/20/16 08:49 Apixaban (Eliquis) 2.5 mg Q12HR ORAL 11/12/16 09:00 12/12/16 08:59 11/20/16 08:47 Bisacodyl (Dulcolax) 10 mg TWICE A DAY RECTAL 11/19/16 10:00 12/19/16 09:59 11/19/16 11:33 Bupropion HCl (Wellbutrin) 75 mg Q12HR GT 11/18/16 11:06 12/12/16 08:59 11/20/16 08:46 Dextrose (Dextrose 50%) STAT PRN IV Hypoglycemia 11/12/16 03:35 12/12/16 03:34 Dextrose/Sodium Chloride (D5 0.45% NS) 1,000 ml @ 75 mls/hr [id number] IV 11/16/16 09:00 12/16/16 08:59 11/20/16 06:25 Doxazosin Mesylate (Cardura) 2 mg BEDTIME GT 11/12/16 21:00 12/12/16 20:59 11/18/16 21:16 Finasteride (Proscar) 5 mg DAILY GT 11/12/16 09:00 12/12/16 08:59 11/20/16 08:46 Insulin Aspart (NovoLOG) Q6HR SUBQ 11/14/16 18:00 12/14/16 17:59 11/14/16 19:08 Levothyroxine Sodium (Synthroid) 75 mcg DAILY@0630 ORAL 11/17/16 06:30 12/17/16 06:29 11/19/16 06:17 Metoclopramide HCl 10 mg 10 mg EVERY 8 HOURS IVP 11/19/16 22:00 12/19/16 21:59 11/20/16 13:03 Metoclopramide HCl (Reglan) 10 mg Q8H PRN IVP Nausea & Vomiting 11/19/16 21:17 12/16/16 14:44 Metoprolol Tartrate (Lopressor) 25 mg Q12H GT 11/17/16 21:00 12/17/16 20:59 11/18/16 21:15 Ondansetron HCl (Zofran) 4 mg Q8H PRN IVP Nausea & Vomiting 11/19/16 21:15 12/19/16 21:14 Piperacillin Sod/ Tazobactam Sod/ Dextrose (Zosyn/D5W) 110 ml @ 27.5 mls/hr Q8HR IVPB 11/19/16 22:00 11/26/16 21:59 11/20/16 13:04 Polyethylene Glycol (Miralax) 17 gm HSPRN PRN GT Constipation 11/12/16 03:39 12/12/16 03:38 11/15/16 17:45 Valproic Acid (Depakene) 250 mg DAILY GT 11/12/16 09:00 12/12/16 08:59 11/20/16 08:46 Vancomycin HCl (Vanco rx to dose) 1 ea DAILY PRN MISC . 11/12/16 09:00 12/12/16 08:59 Zolpidem Tartrate (Ambien) 5 mg HSPRN PRN GT Insomnia 11/14/16 17:24 12/12/16 03:33 Aida Frederick M.D. Nov 20, 2016 17:23
[2016-11-20 18:44] LABS: ALANINE AMINOTRANSFERASE 7 U/L (3-41); ALBUMIN/GLOBULIN RATIO 0.8 (1.0-2.7); AMYLASE 14 U/L (10-110); ASPARTATE AMINO TRANSFERASE 16 U/L (5-40); CARBON DIOXIDE 32 mEQ/L (20-30); CHLORIDE 93 mEQ/L (98-107); CREATININE 2.8 mg/dL (0.7-1.2); HEMOLYSIS 3; SODIUM 138 mEQ/L (135-145)
[2016-11-20 18:49] LABS: ANION GAP 13 (5-15)
[2016-11-20 18:52] LABS: IONIZED CALCIUM 1.04 mmol/L (1.10-1.35); POTASSIUM 2.7 mEQ/L (3.4-4.9)
[2016-11-20 19:03] LABS: BASOPHILS % (AUTO) 0.9 % (0.0-2.0); EOSINOPHILS % (AUTO) 2.6 % (0.0-3.0); LYMPHOCYTES % (AUTO) 11.2 % (20.0-45.0); MEAN CORPUSCULAR HEMOGLOBIN 33.3 PG (27.0-31.0); MEAN CORPUSCULAR HGB CONC 33.4 G/DL (32.0-36.0); MEAN CORPUSCULAR VOLUME 100 FL (80-99); MEAN PLATELET VOLUME 7.9 FL (6.5-10.1); MONOCYTES % (AUTO) 8.8 % (1.0-10.0); NEUTROPHILS % (AUTO) 76.5 % (45.0-75.0); PLATELET COUNT 278 K/UL (150-450); RED BLOOD COUNT 3.79 M/UL (4.70-6.10); RED CELL DISTRIBUTION WIDTH 13.3 % (11.6-14.8); WHITE BLOOD COUNT 6.8 K/UL (4.8-10.8)
[2016-11-20 20:00] VITALS: BP 103/66
[2016-11-20] MEDS: Doxazosin 1mg Tab GT SCH (21:00)
--- NOTE | 2016-11-20 21:37 | Operative Note - Dictated ---
DATE OF OPERATION: 11/20/2016 SURGEON: Nirmal Jaime M.D. [employer]ICER: None. ANESTHESIA: None. INDICATION FOR PROCEDURE: Speech pathology and primary care doctor would like me to evaluate his vocal cords and his hypopharynx related to weak voice and dysphagia. He does have a G-tube now. PREOPERATIVE DIAGNOSIS: To evaluate his vocal cords and his hypopharynx related to weak voice and dysphagia. POSTOPERATIVE DIAGNOSIS: To evaluate his vocal cords and his hypopharynx related to weak voice and dysphagia. FINDINGS: Mild inflammation, some of this may be left over from the cellulitis of the left face and head and neck, which seems to be resolving with treatment. PROCEDURE: Fiberoptic laryngoscopy. DESCRIPTION OF TECHNIQUE: Consent was obtained by the nurse, who stated that he is able to sign his own consent that had been a question earlier. She double-checked. A fiberoptic scope was placed through the mouth. I was able to evaluate the larynx and the hypopharynx. There is some mild swelling on the left hand side, but the vocal cords move. This scope was then removed. Sponge and needle count was correct. ESTIMATED BLOOD LOSS: Zero. COUNTS: None. DRAINS: None. Please note that this is a gentleman with dementia and numerous other medical issues. He was probably just weak and over the years probably had minor strokes, which has led to difficulty with eating, which is why he has a G-tube. Should speech pathology and/or the primary physician have further questions, please feel free to contact me. Nirmal Jaime M.D. DR: STEPHAN JOB#: [id number] CC: SANDEEP
--- NOTE | 2016-11-20 23:30 | Pulmonology Progress Note ---
Assessment/Plan Problems: (1) Respiratory insufficiency (2) Cellulitis (3) HTN (hypertension) (4) History of CVA (cerebrovascular accident) Assessment/Plan improving continue antibiotics biopsy results noted respiratory treatment titrate fio2 to sat of 92% Subjective ROS Limited/Unobtainable: Yes Respiratory: Reports: dry cough, dyspnea at rest, dyspnea on exertion, shortness of breath, wheezing Neurologic: Reports: confusion, weakness Allergies: Coded Allergies: AUBREY INHIBITORS (Verified Allergy, Unknown, ANGIOEDEMA, 09/17/12) Objective Last 24 Hour Vital Signs Date Time Temp Pulse Resp B/P Pulse Ox O2 Delivery O2 Flow Rate FiO2 11/20/16 21:00 63 103/66 11/20/16 20:00 97.0 63 18 103/66 97 Room Air 11/20/16 16:00 97.0 65 18 99/56 97 Room Air 11/20/16 12:05 98.1 60 20 100/60 94 Room Air 11/20/16 08:45 64 118/74 11/20/16 08:00 97.5 64 19 118/74 97 Room Air 11/20/16 03:50 97.5 70 18 124/79 96 Room Air 11/20/16 00:00 97.3 56 18 118/73 97 Room Air Intake and Output 11/19/16 11/20/16 19:00 07:00 Intake Total 487.5 ml 1010.0 ml Balance 487.5 ml 1010.0 ml IV Total 487.5 ml 1010.0 ml # Voids 3 2 # Bowel Movements 2 1 General Appearance: no acute distress HEENT: normocephalic, atraumatic, PERRL Respiratory/Chest: chest wall non-tender, decreased breath sounds, accessory muscle use Cardiovascular: normal peripheral pulses, normal rate, regular rhythm Abdomen: normal bowel sounds, soft, non tender, no organomegaly, non distended Skin: rash, lesions Neurologic/Psychiatric: responsive, abnormal CN, disoriented, aphasia Laboratory Tests 11/20/16 06:10: Random Vancomycin Level 38.2 11/20/16 18:10: White Blood Count 6.8, Red Blood Count 3.79L, Hemoglobin 12.6L, Hematocrit 37.8L , Mean Corpuscular Volume 100H, Mean Corpuscular Hemoglobin 33.3H, Mean Corpuscular Hemoglobin Concent 33.4, Red Cell Distribution Width 13.3, Platelet Count 278, Mean Platelet Volume 7.9, Neutrophils (%) (Auto) 76.5H, Lymphocytes ( %) (Auto) 11.2L, Monocytes (%) (Auto) 8.8, Eosinophils (%) (Auto) 2.6, Basophils (%) (Auto) 0.9, Sodium Level 138, Potassium Level 2.7*L, Chloride Level 93L, Carbon Dioxide Level 32H, Anion Gap 13, Blood Urea Nitrogen 29H, Creatinine 2.8H, Estimat Glomerular Filtration Rate , Glucose Level 113H, Lactic Acid Level 0.60L, Calcium Level 8.0L, Ionized Calcium (Measured) 1.04L, Total Bilirubin 0.4, Aspartate Amino Transf (AST/SGOT) 16, Alanine Aminotransferase (ALT/SGPT) 7, Alkaline Phosphatase 48, Total Protein 6.0L, Albumin 2.7L, Globulin 3.3, Albumin/Globulin Ratio 0.8L, Amylase Level 14 Current Medications Medications (Trade) Dose Ordered Sig/Yousuf Route PRN Reason Start Time Stop Time Status Last Admin Dose Admin Acetaminophen (Tylenol) 650 mg Q4H PRN ORAL fever 11/12/16 03:34 12/12/16 03:33 Al Hydroxide/Mg Hydroxide 30 ml 30 ml Q6H PRN GT dyspepsia 11/14/16 17:25 12/12/16 03:33 11/17/16 18:40 Amiodarone HCl (Cordarone) 100 mg DAILY GT 11/12/16 09:00 12/12/16 08:59 11/20/16 08:49 Apixaban (Eliquis) 2.5 mg Q12HR ORAL 11/12/16 09:00 12/12/16 08:59 11/20/16 08:47 Bisacodyl (Dulcolax) 10 mg TWICE A DAY RECTAL 11/19/16 10:00 12/19/16 09:59 11/19/16 11:33 Bupropion HCl (Wellbutrin) 75 mg Q12HR GT 11/18/16 11:06 12/12/16 08:59 11/20/16 08:46 Dextrose (Dextrose 50%) STAT PRN IV Hypoglycemia 11/12/16 03:35 12/12/16 03:34 Dextrose/Sodium Chloride (D5 0.45% NS) 1,000 ml @ 75 mls/hr [id number] IV 11/16/16 09:00 12/16/16 08:59 11/20/16 17:53 Doxazosin Mesylate (Cardura) 2 mg BEDTIME GT 11/12/16 21:00 12/12/16 20:59 11/18/16 21:16 Finasteride (Proscar) 5 mg DAILY GT 11/12/16 09:00 12/12/16 08:59 11/20/16 08:46 Insulin Aspart (NovoLOG) Q6HR SUBQ 11/14/16 18:00 12/14/16 17:59 11/14/16 19:08 Levothyroxine Sodium (Synthroid) 75 mcg DAILY@0630 ORAL 11/17/16 06:30 12/17/16 06:29 11/19/16 06:17 Metoclopramide HCl 10 mg 10 mg EVERY 8 HOURS IVP 11/19/16 22:00 12/19/16 21:59 11/20/16 22:45 Metoclopramide HCl 10 mg 10 mg Q8H PRN IVP Nausea & Vomiting 11/19/16 21:17 12/16/16 14:44 Metoprolol Tartrate (Lopressor) 25 mg Q12H GT 11/17/16 21:00 12/17/16 20:59 11/18/16 21:15 Ondansetron HCl (Zofran) 4 mg Q8H PRN IVP Nausea & Vomiting 11/19/16 21:15 12/19/16 21:14 Piperacillin Sod/ Tazobactam Sod/ Dextrose (Zosyn/D5W) 110 ml @ 27.5 mls/hr Q8HR IVPB 11/19/16 22:00 11/26/16 21:59 11/20/16 22:55 Polyethylene Glycol (Miralax) 17 gm HSPRN PRN GT Constipation 11/12/16 03:39 12/12/16 03:38 11/15/16 17:45 Potassium Chloride 100 ml @ 100 mls/hr Q1H IVPB 11/20/16 21:00 11/21/16 00:59 11/20/16 22:33 Potassium Chloride (KCl 10mEq/100ml Premix) 100 ml @ 100 mls/hr Q1H IVPB 11/21/16 09:00 11/21/16 12:59 Valproic Acid (Depakene) 250 mg DAILY GT 11/12/16 09:00 12/12/16 08:59 11/20/16 08:46 Vancomycin HCl (Vanco rx to dose) 1 ea DAILY PRN MISC . 11/12/16 09:00 12/12/16 08:59 Zolpidem Tartrate (Ambien) 5 mg HSPRN PRN GT Insomnia 11/14/16 17:24 12/12/16 03:33 MARY SELF Nov 20, 2016 23:30
[2016-11-21] VITALS: BP 122/75
[2016-11-21 04:00] VITALS: BP 114/76
[2016-11-21] MEDS: NovoLOG Insulin Flexpen SUBQ SCH ×4 (06:00→18:00)
[2016-11-21] MEDS: Piperacillin/Tazobactam 3.375 GM in D5W 110 ML IVPB SCH ×2 (06:01→13:55)
[2016-11-21] MEDS: Metoclopramide 10mg/2ml Inj IVP SCH ×3 (06:01→22:06)
--- NOTE | 2016-11-21 06:38 | General Progress Note ---
Assessment/Plan Problem List: (1) Hypothyroidism ICD Codes: E03.9 - Hypothyroidism, unspecified SNOMED: 67785336 (2) Swelling of left side of face ICD Codes: R22.0 - Localized swelling, mass and lump, head SNOMED: 015488638 (3) Cellulitis and abscess of face ICD Codes: L03.211 - Cellulitis of face; L02.01 - Cutaneous abscess of face SNOMED: 652964682 (4) PEG (percutaneous endoscopic gastrostomy) adjustment/replacement/removal ICD Codes: Z43.1 - Encounter for attention to gastrostomy SNOMED: 947444166 (5) Dysphagia ICD Codes: R13.10 - Dysphagia SNOMED: 90860517 (6) History of respiratory failure ICD Codes: Z87.09 - History of respiratory failure SNOMED: 728122591 (7) History of CVA (cerebrovascular accident) ICD Codes: Z86.73 - History of CVA (cerebrovascular accident) SNOMED: 415097358 (8) Thyroid mass of unclear etiology ICD Codes: E07.89 - Other specified disorders of thyroid SNOMED: 787205975 (9) Diabetes ICD Codes: E11.9 - Diabetes SNOMED: 27237017 Assessment/Plan thyroid mass is benign continue Levothyroxine 75 mcg daily TSH should be repeated in 3-4 weeks for further dosage adjustment glucose values are well controlled continue blood glucose monitoring and Novolog coverage Subjective ROS Limited/Unobtainable: Yes Allergies: Coded Allergies: AUBREY INHIBITORS (Verified Allergy, Unknown, ANGIOEDEMA, 09/17/12) Subjective events noted - interval notes reviewed Objective Last 24 Hour Vital Signs Date Time Temp Pulse Resp B/P Pulse Ox O2 Delivery O2 Flow Rate FiO2 11/21/16 04:00 96.9 60 18 114/76 96 Room Air 11/21/16 00:00 96.8 61 18 122/75 96 Room Air 11/20/16 21:00 63 103/66 11/20/16 20:00 97.0 63 18 103/66 97 Room Air 11/20/16 16:00 97.0 65 18 99/56 97 Room Air 11/20/16 12:05 98.1 60 20 100/60 94 Room Air 11/20/16 08:45 64 118/74 11/20/16 08:00 97.5 64 19 118/74 97 Room Air Intake and Output 11/20/16 11/21/16 19:00 07:00 Intake Total 300 ml 460.0 ml Output Total 410 ml 204 ml Balance -110 ml 256.0 ml IV Total 300 ml 460.0 ml Output Urine Total 4 ml Other 410 ml 200 ml # Voids 3 3 # Bowel Movements 3 4 Laboratory Tests 11/20/16 18:10: White Blood Count 6.8, Red Blood Count 3.79L, Hemoglobin 12.6L, Hematocrit 37.8L , Mean Corpuscular Volume 100H, Mean Corpuscular Hemoglobin 33.3H, Mean Corpuscular Hemoglobin Concent 33.4, Red Cell Distribution Width 13.3, Platelet Count 278, Mean Platelet Volume 7.9, Neutrophils (%) (Auto) 76.5H, Lymphocytes ( %) (Auto) 11.2L, Monocytes (%) (Auto) 8.8, Eosinophils (%) (Auto) 2.6, Basophils (%) (Auto) 0.9, Sodium Level 138, Potassium Level 2.7*L, Chloride Level 93L, Carbon Dioxide Level 32H, Anion Gap 13, Blood Urea Nitrogen 29H, Creatinine 2.8H, Estimat Glomerular Filtration Rate , Glucose Level 113H, Lactic Acid Level 0.60L, Calcium Level 8.0L, Ionized Calcium (Measured) 1.04L, Total Bilirubin 0.4, Aspartate Amino Transf (AST/SGOT) 16, Alanine Aminotransferase (ALT/SGPT) 7, Alkaline Phosphatase 48, Total Protein 6.0L, Albumin 2.7L, Globulin 3.3, Albumin/Globulin Ratio 0.8L, Amylase Level 14 Height (Feet): 5 Height (Inches): 9.00 Weight (Pounds): 170 General Appearance: no apparent distress EENT: pale conjunctivae Neck: normal alignment Cardiovascular: normal peripheral pulses Respiratory/Chest: decreased breath sounds Abdomen: normal bowel sounds Pelvis: normal external exam Edema: no edema noted Arm (L), no edema noted Arm (R), no edema noted Leg (L), no edema noted Leg (R), no edema noted Pedal (L), no edema noted Pedal (R), no edema noted Generalized Objective Current Medications Medications (Trade) Dose Ordered Sig/Yousuf Route PRN Reason Start Time Stop Time Status Last Admin Dose Admin Acetaminophen (Tylenol) 650 mg Q4H PRN ORAL fever 11/12/16 03:34 12/12/16 03:33 Al Hydroxide/Mg Hydroxide 30 ml 30 ml Q6H PRN GT dyspepsia 11/14/16 17:25 12/12/16 03:33 11/17/16 18:40 Amiodarone HCl (Cordarone) 100 mg DAILY GT 11/12/16 09:00 12/12/16 08:59 11/20/16 08:49 Apixaban (Eliquis) 2.5 mg Q12HR ORAL 11/12/16 09:00 12/12/16 08:59 11/20/16 08:47 Bisacodyl (Dulcolax) 10 mg TWICE A DAY RECTAL 11/19/16 10:00 12/19/16 09:59 11/19/16 11:33 Bupropion HCl (Wellbutrin) 75 mg Q12HR GT 11/18/16 11:06 12/12/16 08:59 11/20/16 08:46 Dextrose (Dextrose 50%) STAT PRN IV Hypoglycemia 11/12/16 03:35 12/12/16 03:34 Dextrose/Sodium Chloride (D5 0.45% NS) 1,000 ml @ 75 mls/hr [id number] IV 11/16/16 09:00 12/16/16 08:59 11/20/16 17:53 Doxazosin Mesylate (Cardura) 2 mg BEDTIME GT 11/12/16 21:00 12/12/16 20:59 11/18/16 21:16 Finasteride (Proscar) 5 mg DAILY GT 11/12/16 09:00 12/12/16 08:59 11/20/16 08:46 Insulin Aspart (NovoLOG) Q6HR SUBQ 11/14/16 18:00 12/14/16 17:59 11/14/16 19:08 Levothyroxine Sodium (Synthroid) 75 mcg DAILY@0630 ORAL 11/17/16 06:30 12/17/16 06:29 11/19/16 06:17 Metoclopramide HCl 10 mg 10 mg EVERY 8 HOURS IVP 11/19/16 22:00 12/19/16 21:59 11/21/16 06:01 Metoclopramide HCl 10 mg 10 mg Q8H PRN IVP Nausea & Vomiting 11/19/16 21:17 12/16/16 14:44 Metoprolol Tartrate (Lopressor) 25 mg Q12H GT 11/17/16 21:00 12/17/16 20:59 11/18/16 21:15 Ondansetron HCl (Zofran) 4 mg Q8H PRN IVP Nausea & Vomiting 11/19/16 21:15 12/19/16 21:14 Piperacillin Sod/ Tazobactam Sod/ Dextrose (Zosyn/D5W) 110 ml @ 27.5 mls/hr Q8HR IVPB 11/19/16 22:00 11/26/16 21:59 11/21/16 06:01 Polyethylene Glycol (Miralax) 17 gm HSPRN PRN GT Constipation 11/12/16 03:39 12/12/16 03:38 11/15/16 17:45 Potassium Chloride (KCl 10mEq/100ml Premix) 100 ml @ 100 mls/hr Q1H IVPB 11/21/16 09:00 11/21/16 12:59 Valproic Acid (Depakene) 250 mg DAILY GT 11/12/16 09:00 12/12/16 08:59 11/20/16 08:46 Vancomycin HCl (Vanco rx to dose) 1 ea DAILY PRN MISC . 11/12/16 09:00 12/12/16 08:59 Zolpidem Tartrate (Ambien) 5 mg HSPRN PRN GT Insomnia 11/14/16 17:24 12/12/16 03:33 Item Value Date Time Bedside Blood Glucose 110 mg/dl 11/21/16 0000 Bedside Blood Glucose 120 mg/dl 11/20/16 1800 Bedside Blood Glucose 105 mg/dl 11/20/16 1142 Bedside Blood Glucose 91 mg/dl 11/20/16 0531 BETTY GERMAIN Nov 21, 2016 06:38
[2016-11-21 08:00] VITALS: BP 143/73
--- NOTE | 2016-11-21 08:13 | General Progress Note ---
Assessment/Plan Assessment/Plan Assessment - SBO vs ileus - Facial cellulitis - Anemia - s/p PEG - a fib - DM - HN - Renal failure - low K Recommendations - NPO - IVF - increase - check CT scan - check abd ultrasound - follow exam and labs - consider renal eval Encounter date 11/20/2016 Delayed entry note Subjective Allergies: Coded Allergies: AUBREY INHIBITORS (Verified Allergy, Unknown, ANGIOEDEMA, 09/17/12) Subjective Feels better no complaints discussed at length with Dr. Call re options and causes of ileus (+) BM daily Objective Last 24 Hour Vital Signs Date Time Temp Pulse Resp B/P Pulse Ox O2 Delivery O2 Flow Rate FiO2 11/21/16 04:00 96.9 60 18 114/76 96 Room Air 11/21/16 00:00 96.8 61 18 122/75 96 Room Air 11/20/16 21:00 63 103/66 11/20/16 20:00 97.0 63 18 103/66 97 Room Air 11/20/16 16:00 97.0 65 18 99/56 97 Room Air 11/20/16 12:05 98.1 60 20 100/60 94 Room Air 11/20/16 08:45 64 118/74 Intake and Output 11/20/16 11/21/16 19:00 07:00 Intake Total 300 ml 460.0 ml Output Total 410 ml 204 ml Balance -110 ml 256.0 ml IV Total 300 ml 460.0 ml Output Urine Total 4 ml Other 410 ml 200 ml # Voids 3 3 # Bowel Movements 3 4 Laboratory Tests 11/20/16 18:10: White Blood Count 6.8, Red Blood Count 3.79L, Hemoglobin 12.6L, Hematocrit 37.8L , Mean Corpuscular Volume 100H, Mean Corpuscular Hemoglobin 33.3H, Mean Corpuscular Hemoglobin Concent 33.4, Red Cell Distribution Width 13.3, Platelet Count 278, Mean Platelet Volume 7.9, Neutrophils (%) (Auto) 76.5H, Lymphocytes ( %) (Auto) 11.2L, Monocytes (%) (Auto) 8.8, Eosinophils (%) (Auto) 2.6, Basophils (%) (Auto) 0.9, Sodium Level 138, Potassium Level 2.7*L, Chloride Level 93L, Carbon Dioxide Level 32H, Anion Gap 13, Blood Urea Nitrogen 29H, Creatinine 2.8H, Estimat Glomerular Filtration Rate , Glucose Level 113H, Lactic Acid Level 0.60L, Calcium Level 8.0L, Ionized Calcium (Measured) 1.04L, Total Bilirubin 0.4, Aspartate Amino Transf (AST/SGOT) 16, Alanine Aminotransferase (ALT/SGPT) 7, Alkaline Phosphatase 48, Total Protein 6.0L, Albumin 2.7L, Globulin 3.3, Albumin/Globulin Ratio 0.8L, Amylase Level 14 Height (Feet): 5 Height (Inches): 9.00 Weight (Pounds): 170 Objective debilitated WM (+) neck scar CTA RR abd softer and less distended today, (+) GT no edema WILLIS AMADO Nov 21, 2016 08:13
[2016-11-21] MEDS: Amiodarone 200mg tab GT SCH (08:54)
[2016-11-21] MEDS: BuPROPion 75mg Tab GT SCH ×2 (08:54→20:52)
[2016-11-21] MEDS: Eliquis 2.5mg tablet ORAL SCH ×2 (08:54→20:54)
[2016-11-21] MEDS: D5 1/2NS 1,000 ML IV SCH ×2 (08:55→16:18)
[2016-11-21] MEDS: Metoprolol Tartrate 12.5mg TAB GT SCH ×2 (08:55→20:52)
[2016-11-21] MEDS: Valproic Acid 250mg/5ml Liquid GT SCH (08:55)
[2016-11-21 10:21] LABS: BASOPHILS % (AUTO) 1.1 % (0.0-2.0); EOSINOPHILS % (AUTO) 4.3 % (0.0-3.0); LYMPHOCYTES % (AUTO) 12.3 % (20.0-45.0); MEAN CORPUSCULAR HEMOGLOBIN 32.1 PG (27.0-31.0); MEAN CORPUSCULAR VOLUME 100 FL (80-99); MONOCYTES % (AUTO) 9.6 % (1.0-10.0); NEUTROPHILS % (AUTO) 72.8 % (45.0-75.0); PLATELET COUNT 255 K/UL (150-450); RED BLOOD COUNT 3.78 M/UL (4.70-6.10); RED CELL DISTRIBUTION WIDTH 13.6 % (11.6-14.8); WHITE BLOOD COUNT 5.9 K/UL (4.8-10.8)
[2016-11-21 10:37] LABS: ANION GAP 14 (5-15); CALCIUM 8.2 mg/dL (8.6-10.2); CARBON DIOXIDE 31 mEQ/L (20-30); CHLORIDE 94 mEQ/L (98-107); CREATININE 2.7 mg/dL (0.7-1.2); HEMOLYSIS 3; POTASSIUM 3.4 mEQ/L (3.4-4.9); SODIUM 139 mEQ/L (135-145)
--- NOTE | 2016-11-21 11:18 | General Progress Note ---
Assessment/Plan Assessment/Plan ASSESSMENT: 1. Left-sided facial erythema, cellulitis, has improved. Continue abx prn 2. Anemia secondary to chronic disease. 3. Right lower lobe thyroid nodule 19 x 11mm, s/p fna - benign 4. Diabetes mellitus. 5. Atrial fibrillation. 6. Cellulitis of the face. 7. Diabetes mellitus. 8. Hypertension. 9. Psychiatric history. 10. Afib on eliquis RECOMMENDATIONS: 1. Monitor counts. 2. Transfuse to hgb >7 3. MRI query head pending 4. Followup on ID, endo, Pulmonary recs, and ENT recs 5. Reviewed pathology of thyroid - benign 6. DVT ppx with eliquis. 7. GI ppx as needed. 8. Pain control. 9. Abx as needed. 10. DW staff Thank you, Jax Alcaraz MD Subjective Constitutional: Reports: no symptoms HEENT: Reports: no symptoms Cardiovascular: Reports: no symptoms Respiratory: Reports: no symptoms Gastrointestinal/Abdominal: Reports: no symptoms Genitourinary: Reports: no symptoms Neurologic/Psychiatric: Reports: no symptoms Endocrine: Reports: no symptoms Hematologic/Lymphatic: Reports: anemia Allergies: Coded Allergies: AUBREY INHIBITORS (Verified Allergy, Unknown, ANGIOEDEMA, 09/17/12) Subjective stable, without bleeding, no night sweats, face improved Objective Last 24 Hour Vital Signs Date Time Temp Pulse Resp B/P Pulse Ox O2 Delivery O2 Flow Rate FiO2 11/21/16 08:00 97.9 68 20 143/73 93 Room Air 11/21/16 04:00 96.9 60 18 114/76 96 Room Air 11/21/16 00:00 96.8 61 18 122/75 96 Room Air 11/20/16 21:00 63 103/66 11/20/16 20:00 97.0 63 18 103/66 97 Room Air 11/20/16 16:00 97.0 65 18 99/56 97 Room Air 11/20/16 12:05 98.1 60 20 100/60 94 Room Air Intake and Output 11/20/16 11/21/16 19:00 07:00 Intake Total 300 ml 460.0 ml Output Total 410 ml 204 ml Balance -110 ml 256.0 ml IV Total 300 ml 460.0 ml Output Urine Total 4 ml Other 410 ml 200 ml # Voids 3 3 # Bowel Movements 3 4 Laboratory Tests 11/20/16 18:10: White Blood Count 6.8, Red Blood Count 3.79L, Hemoglobin 12.6L, Hematocrit 37.8L , Mean Corpuscular Volume 100H, Mean Corpuscular Hemoglobin 33.3H, Mean Corpuscular Hemoglobin Concent 33.4, Red Cell Distribution Width 13.3, Platelet Count 278, Mean Platelet Volume 7.9, Neutrophils (%) (Auto) 76.5H, Lymphocytes ( %) (Auto) 11.2L, Monocytes (%) (Auto) 8.8, Eosinophils (%) (Auto) 2.6, Basophils (%) (Auto) 0.9, Sodium Level 138, Potassium Level 2.7*L, Chloride Level 93L, Carbon Dioxide Level 32H, Anion Gap 13, Blood Urea Nitrogen 29H, Creatinine 2.8H, Estimat Glomerular Filtration Rate , Glucose Level 113H, Lactic Acid Level 0.60L, Calcium Level 8.0L, Ionized Calcium (Measured) 1.04L, Total Bilirubin 0.4, Aspartate Amino Transf (AST/SGOT) 16, Alanine Aminotransferase (ALT/SGPT) 7, Alkaline Phosphatase 48, Total Protein 6.0L, Albumin 2.7L, Globulin 3.3, Albumin/Globulin Ratio 0.8L, Amylase Level 14 11/21/16 10:15: White Blood Count 5.9, Red Blood Count 3.78L, Hemoglobin 12.1L, Hematocrit 37.9L , Mean Corpuscular Volume 100H, Mean Corpuscular Hemoglobin 32.1H, Mean Corpuscular Hemoglobin Concent 32.0, Red Cell Distribution Width 13.6, Platelet Count 255, Mean Platelet Volume 8.0, Neutrophils (%) (Auto) 72.8, Lymphocytes (% ) (Auto) 12.3L, Monocytes (%) (Auto) 9.6, Eosinophils (%) (Auto) 4.3H, Basophils (%) (Auto) 1.1, Sodium Level 139, Potassium Level 3.4, Chloride Level 94L, Carbon Dioxide Level 31H, Anion Gap 14, Blood Urea Nitrogen 26H, Creatinine 2.7H, Estimat Glomerular Filtration Rate , Glucose Level 99, Calcium Level 8.2L Height (Feet): 5 Height (Inches): 9.00 Weight (Pounds): 170 General Appearance: no apparent distress EENT: TMs normal Neck: supple Cardiovascular: regular rhythm Respiratory/Chest: chest wall non-tender Abdomen: soft Genitourinary/Rectal: normal rectal exam Extremities: non-tender Edema: 1+ Leg (L), 1+ Leg (R) Edema: mild edema Neurologic: alert Skin: warm/dry Jax Alcaraz Nov 21, 2016 11:18
[2016-11-21 12:00] VITALS: BP 129/54
--- NOTE | 2016-11-21 12:00 | Diagnostic Imaging Report ---
Indication: Abdominal distention Technique: Spiral acquisitions obtained through the abdomen and pelvis. Patient given enteric contrast. No IV contrast utilized, per referring physician request.. Multiplanar reconstructions were generated. Total dose length product 743 mGycm. CTDIvol(s) 14 mGy Comparison: 01/12/2015 Findings: Contrast from prior small bowel study is seen within the distal colon. There is colonic diverticulosis. There is equivocally thickening of the proximal sigmoid, although this is probably artifact of under distention. The appendix is normal. There is marked distention of most of the small bowel. There is gradual transition into normal caliber small bowel loops which occurs gradually in the midabdomen. Contrast is seen in small bowel distal to the area of transition. There is a small amount of free fluid within the pelvis. No free intraperitoneal air. No bowel wall thickening is evident. There is also trace free fluid seen over the dome of the liver and of the spleen the distal esophagus, stomach, duodenum are unremarkable. There are small fat-containing bilateral inguinal hernias Lack of IV contrast limits assessment of the solid organs. The liver, gallbladder, bile ducts, pancreas, spleen, adrenals are unremarkable. The kidneys are unremarkable. No retroperitoneal or mesenteric mass or adenopathy. No pelvic mass or adenopathy. Included lung bases demonstrate a small left pleural effusion. This results in minimal compressive atelectatic change. The heart contains pacemaker wires. The bones demonstrate degenerative spondylosis changes. Impression: Dilated small bowel, with gradual tapering to normal caliber distal small bowel. Given the absence of an abrupt transition and findings on earlier studies, favor that small bowel distention is on a functional basis, possibly ileus. However, given the presence of nondilated small bowel loops, the possibility of partial distal small bowel obstruction cannot be completely ruled out. Small amount of ascites fluid present Small left pleural effusion Incidental findings as noted, including degenerative spondylosis, pacemaker, small fat-containing inguinal hernias The CT scanner at [facility] is accredited by the [employer] and the scans are performed using protocols designed to limit radiation exposure to as low as reasonably achievable to attain images of sufficient resolution adequate for diagnostic evaluation.
[2016-11-21 16:00] VITALS: BP 127/76
--- NOTE | 2016-11-21 16:25 | Consultation ---
Consult Note Consult Note asked to evaluate for worsening renal failure - Respiratory insufficiency - Cellulitis and abscess of face - HTN (hypertension) - History of CVA (cerebrovascular accident) - Diabetes - Thyroid mass of unclear etiology - Ileus . Assessment/Plan status: Cr 0.9 in 11/15 went up to 2.7 in 11/21 Acute renal failure due to Vancomycin- Vanco trough on 11/17 over 54 , on 11/20 over 38 Plan: Hold Vanco Monitor levels- adjust Zosyn accordinly Monitor renal parameters- Keep BP over 100 syst DARIN Cota Nov 21, 2016 16:25
[2016-11-21] MEDS ORDERED: Metoclopramide 10mg/2ml Inj IVP PRN (16:37)
--- NOTE | 2016-11-21 17:39 | Cardiac Electrophysiology PN ---
Assessment/Plan Status Narrative Technically difficult study due to poor acoustic windows and GI Tube blocking scan area. Apical views obtained only. Study quality precludes accurate assessment of regional wall motion. M-mode measurements of left ventricle not obtainable. Normal left ventricular chamber size, grossly systolic function and wall motion to extent visualized. Left ventricular ejection fraction estimated to be 55-60 %. Mild ventricular hypertrophy. No evidence of pericardial fat or effusion. All other cardiac chamber sizes are within normal limits. Aortic valve calcification with decreased cusp excursion. Moderately thickened mitral valve leaflets with normal excursion. Moderate mitral annulus and aortic root calcification. Pulmonic valve not visualized. Normal tricuspid valve structure. Subcostal views not obtainable. Assessment/Plan 1. Status post [facility] [place] permanent pacemaker implantation with normal function 2. Paroxysmal atrial fibrillation, in sinus rhythm, on amiodarone 100 mg daily, metoprolol and Eliquis 2.5 mg twice a day. 3. Hypertension.Continue metoprolol 25 bid. Echocardiogram EF 55% 4. Hypothyroidism, on Synthroid under management of Dr. Chairez. 5. Left facial cellulitis improving on iv ABx. CT scan of the sinuses showed soft tissue swelling, and no abscess 6. Dysphagia, status post gastrostomy tube. 7. Diabetes. 8. Thyroid mass. FNA of thyroid mass performed - benign pathology 9. I/O measurement.RNs can't place Garnett that was ordered by Dr Cecile KEENE RN Subjective Subjective Alert in NAD.On iv antibiotics. Had upper Gi series yesterday. Had CT abdomen today. RNs have difficulty placing Garnett catheter. Objective Last 24 Hour Vital Signs Date Time Temp Pulse Resp B/P Pulse Ox O2 Delivery O2 Flow Rate FiO2 11/21/16 16:00 96.8 63 20 127/76 96 Room Air 11/21/16 12:00 97.9 77 19 129/54 98 Room Air 11/21/16 08:00 97.9 68 20 143/73 93 Room Air 11/21/16 04:00 96.9 60 18 114/76 96 Room Air 11/21/16 00:00 96.8 61 18 122/75 96 Room Air 11/20/16 21:00 63 103/66 11/20/16 20:00 97.0 63 18 103/66 97 Room Air Intake and Output 11/20/16 11/21/16 19:00 07:00 Intake Total 300 ml 535.0 ml Output Total 410 ml 204 ml Balance -110 ml 331.0 ml IV Total 300 ml 535.0 ml Output Urine Total 4 ml Other 410 ml 200 ml # Voids 3 3 # Bowel Movements 3 4 Laboratory Tests Test 11/20/16 18:10 11/21/16 10:15 White Blood Count 6.8 K/UL (4.8-10.8) 5.9 K/UL (4.8-10.8) Red Blood Count 3.79 M/UL (4.70-6.10) L 3.78 M/UL (4.70-6.10) L Hemoglobin 12.6 G/DL (14.2-18.0) L 12.1 G/DL (14.2-18.0) L Hematocrit 37.8 % (42.0-52.0) L 37.9 % (42.0-52.0) L Mean Corpuscular Volume 100 FL (80-99) H 100 FL (80-99) H Mean Corpuscular Hemoglobin 33.3 PG (27.0-31.0) H 32.1 PG (27.0-31.0) H Mean Corpuscular Hemoglobin Concent 33.4 G/DL (32.0-36.0) 32.0 G/DL (32.0-36.0) Red Cell Distribution Width 13.3 % (11.6-14.8) 13.6 % (11.6-14.8) Platelet Count 278 K/UL (150-450) 255 K/UL (150-450) Mean Platelet Volume 7.9 FL (6.5-10.1) 8.0 FL (6.5-10.1) Neutrophils (%) (Auto) 76.5 % (45.0-75.0) H 72.8 % (45.0-75.0) Lymphocytes (%) (Auto) 11.2 % (20.0-45.0) L 12.3 % (20.0-45.0) L Monocytes (%) (Auto) 8.8 % (1.0-10.0) 9.6 % (1.0-10.0) Eosinophils (%) (Auto) 2.6 % (0.0-3.0) 4.3 % (0.0-3.0) H Basophils (%) (Auto) 0.9 % (0.0-2.0) 1.1 % (0.0-2.0) Sodium Level 138 mEQ/L (135-145) 139 mEQ/L (135-145) Potassium Level 2.7 mEQ/L (3.4-4.9) *L 3.4 mEQ/L (3.4-4.9) Chloride Level 93 mEQ/L (98-107) L 94 mEQ/L (98-107) L Carbon Dioxide Level 32 mEQ/L (20-30) H 31 mEQ/L (20-30) H Anion Gap 13 (5-15) 14 (5-15) Blood Urea Nitrogen 29 mg/dL (7-23) H 26 mg/dL (7-23) H Creatinine 2.8 mg/dL (0.7-1.2) H 2.7 mg/dL (0.7-1.2) H Estimat Glomerular Filtration Rate mL/min (>60) mL/min (>60) Glucose Level 113 mg/dL (74-106) H 99 mg/dL (74-106) Lactic Acid Level 0.60 mmol/L (0.66-2.22) L Calcium Level 8.0 mg/dL (8.6-10.2) L 8.2 mg/dL (8.6-10.2) L Ionized Calcium (Measured) 1.04 mmol/L (1.10-1.35) L Total Bilirubin 0.4 mg/dL (0.0-1.2) Aspartate Amino Transf (AST/SGOT) 16 U/L (5-40) Alanine Aminotransferase (ALT/SGPT) 7 U/L (3-41) Alkaline Phosphatase 48 U/L (40-129) Total Protein 6.0 g/dL (6.6-8.7) L Albumin 2.7 g/dL (3.5-5.2) L Globulin 3.3 g/dL Albumin/Globulin Ratio 0.8 (1.0-2.7) L Amylase Level 14 U/L (10-110) Objective Neck: No JVD. S/P Thyroid biopsy. Cardiovascular: regular rhythm.2/6 Systolic murmur LSB. Pacer left subclavian. Respiratory/Chest: lungs clear Abdomen: no mass Extremities: no edema TOLUIE,HILDA Nov 21, 2016 17:39
[2016-11-21] MEDS: D5NS 1,000 ML IV SCH (18:11)
--- NOTE | 2016-11-21 18:12 | Infectious Diseases Prog Note ---
Assessment/Plan Problems: (1) Cellulitis and abscess of face Assessment & Plan: improving on zosyn and vancomycin empirically , vancomycin on hold since it is super therapeutic , CT scan of the sinuses showed soft tissue swelling, and no abscess, can't do an MRI of the head with contrast to rule out any soft tissue abscess or infiltration since he has pacemaker. will d/ c vancomycin and start clindamycin for now , ENT is following (2) Cellulitis Assessment & Plan: of the neck , CT scan showed cellulitis and right lower thyroids pole mass S/P biopsy with pathology is pending , continue zosyn and vancomycin . (3) Diabetes Assessment & Plan: recommend tight glycemic control to keep blood glucose between 80-120 (4) HTN (hypertension) Assessment & Plan: continue meds to keep SBP <140 (5) Thyroid mass of unclear etiology Assessment & Plan: had US and FNA biopsy , pathology showed benign nodule , endocrinology is following (6) Ileus Assessment & Plan: with recurrent vomiting, no abdominal pain. had CT abdomen showed illeus , general surgery is following Subjective HEENT: Reports: other - facial swelling. Gastrointestinal/Abdominal: Reports: bloating, nausea Allergies: Coded Allergies: AUBREY INHIBITORS (Verified Allergy, Unknown, ANGIOEDEMA, 09/17/12) All Systems: reviewed and negative except above Objective Vital Signs Last 24 Hour Vital Signs Date Time Temp Pulse Resp B/P Pulse Ox O2 Delivery O2 Flow Rate FiO2 11/21/16 16:00 96.8 63 20 127/76 96 Room Air 11/21/16 12:00 97.9 77 19 129/54 98 Room Air 11/21/16 08:00 97.9 68 20 143/73 93 Room Air 11/21/16 04:00 96.9 60 18 114/76 96 Room Air 11/21/16 00:00 96.8 61 18 122/75 96 Room Air 11/20/16 21:00 63 103/66 11/20/16 20:00 97.0 63 18 103/66 97 Room Air Height (Feet): 5 Height (Inches): 9.00 Weight (Pounds): 170 General Appearance: WD/WN, no acute distress HEENT: normocephalic, atraumatic, anicteric, mucous membranes moist Respiratory/Chest: chest wall non-tender, lungs clear, normal breath sounds, no respiratory distress, no accessory muscle use Cardiovascular: normal peripheral pulses, normal rate, regular rhythm, no gallop/murmur, no JVD Abdomen: soft, non tender, no organomegaly, no mass, no scars, absent bowel sounds, distended Extremities: no cyanosis, no clubbing Laboratory Tests Test 11/20/16 18:10 11/21/16 10:15 White Blood Count 6.8 K/UL (4.8-10.8) 5.9 K/UL (4.8-10.8) Red Blood Count 3.79 M/UL (4.70-6.10) L 3.78 M/UL (4.70-6.10) L Hemoglobin 12.6 G/DL (14.2-18.0) L 12.1 G/DL (14.2-18.0) L Hematocrit 37.8 % (42.0-52.0) L 37.9 % (42.0-52.0) L Mean Corpuscular Volume 100 FL (80-99) H 100 FL (80-99) H Mean Corpuscular Hemoglobin 33.3 PG (27.0-31.0) H 32.1 PG (27.0-31.0) H Mean Corpuscular Hemoglobin Concent 33.4 G/DL (32.0-36.0) 32.0 G/DL (32.0-36.0) Red Cell Distribution Width 13.3 % (11.6-14.8) 13.6 % (11.6-14.8) Platelet Count 278 K/UL (150-450) 255 K/UL (150-450) Mean Platelet Volume 7.9 FL (6.5-10.1) 8.0 FL (6.5-10.1) Neutrophils (%) (Auto) 76.5 % (45.0-75.0) H 72.8 % (45.0-75.0) Lymphocytes (%) (Auto) 11.2 % (20.0-45.0) L 12.3 % (20.0-45.0) L Monocytes (%) (Auto) 8.8 % (1.0-10.0) 9.6 % (1.0-10.0) Eosinophils (%) (Auto) 2.6 % (0.0-3.0) 4.3 % (0.0-3.0) H Basophils (%) (Auto) 0.9 % (0.0-2.0) 1.1 % (0.0-2.0) Sodium Level 138 mEQ/L (135-145) 139 mEQ/L (135-145) Potassium Level 2.7 mEQ/L (3.4-4.9) *L 3.4 mEQ/L (3.4-4.9) Chloride Level 93 mEQ/L (98-107) L 94 mEQ/L (98-107) L Carbon Dioxide Level 32 mEQ/L (20-30) H 31 mEQ/L (20-30) H Anion Gap 13 (5-15) 14 (5-15) Blood Urea Nitrogen 29 mg/dL (7-23) H 26 mg/dL (7-23) H Creatinine 2.8 mg/dL (0.7-1.2) H 2.7 mg/dL (0.7-1.2) H Estimat Glomerular Filtration Rate mL/min (>60) mL/min (>60) Glucose Level 113 mg/dL (74-106) H 99 mg/dL (74-106) Lactic Acid Level 0.60 mmol/L (0.66-2.22) L Calcium Level 8.0 mg/dL (8.6-10.2) L 8.2 mg/dL (8.6-10.2) L Ionized Calcium (Measured) 1.04 mmol/L (1.10-1.35) L Total Bilirubin 0.4 mg/dL (0.0-1.2) Aspartate Amino Transf (AST/SGOT) 16 U/L (5-40) Alanine Aminotransferase (ALT/SGPT) 7 U/L (3-41) Alkaline Phosphatase 48 U/L (40-129) Total Protein 6.0 g/dL (6.6-8.7) L Albumin 2.7 g/dL (3.5-5.2) L Globulin 3.3 g/dL Albumin/Globulin Ratio 0.8 (1.0-2.7) L Amylase Level 14 U/L (10-110) Current Medications Medications (Trade) Dose Ordered Sig/Yousuf Route PRN Reason Start Time Stop Time Status Last Admin Dose Admin Acetaminophen (Tylenol) 650 mg Q4H PRN ORAL fever 11/12/16 03:34 12/12/16 03:33 Amiodarone HCl (Cordarone) 100 mg DAILY GT 11/12/16 09:00 12/12/16 08:59 11/20/16 08:49 Apixaban (Eliquis) 2.5 mg Q12HR ORAL 11/12/16 09:00 12/12/16 08:59 11/21/16 08:54 Bisacodyl (Dulcolax) 10 mg TWICE A DAY RECTAL 11/19/16 10:00 12/19/16 09:59 11/19/16 11:33 Bupropion HCl (Wellbutrin) 75 mg Q12HR GT 11/18/16 11:06 12/12/16 08:59 11/21/16 08:54 Dextrose (Dextrose 50%) STAT PRN IV Hypoglycemia 11/12/16 03:35 12/12/16 03:34 Dextrose/Sodium Chloride (D5ns) 1,000 ml @ 100 mls/hr Q10H IV 11/21/16 16:30 12/21/16 16:29 Finasteride (Proscar) 5 mg DAILY GT 11/12/16 09:00 12/12/16 08:59 11/21/16 08:54 Insulin Aspart (NovoLOG) Q6HR SUBQ 11/14/16 18:00 12/14/16 17:59 11/14/16 19:08 Levothyroxine Sodium (Synthroid) 75 mcg DAILY@0630 ORAL 11/17/16 06:30 12/17/16 06:29 11/21/16 07:03 Metoclopramide HCl 5 mg 5 mg EVERY 8 HOURS IVP 11/21/16 14:00 12/21/16 13:59 11/21/16 13:55 Metoclopramide HCl (Reglan) 5 mg Q8H PRN IVP Nausea & Vomiting 11/21/16 16:37 12/16/16 14:44 Metoprolol Tartrate (Lopressor) 25 mg Q12H GT 11/17/16 21:00 12/17/16 20:59 11/18/16 21:15 Ondansetron HCl (Zofran) 4 mg Q8H PRN IVP Nausea & Vomiting 11/19/16 21:15 12/19/16 21:14 Piperacillin Sod/ Tazobactam Sod 3.375 gm/Dextrose 110 ml @ 27.5 mls/hr Q12HR@0200,1400 IVPB 11/22/16 02:00 11/29/16 01:59 Polyethylene Glycol (Miralax) 17 gm HSPRN PRN GT Constipation 11/12/16 03:39 12/12/16 03:38 11/15/16 17:45 Tamsulosin HCl (Flomax) 0.4 mg BEDTIME ORAL 11/21/16 21:00 12/21/16 20:59 Valproic Acid (Depakene) 250 mg DAILY GT 11/12/16 09:00 12/12/16 08:59 11/21/16 08:55 Zolpidem Tartrate (Ambien) 5 mg HSPRN PRN GT Insomnia 11/14/16 17:24 12/12/16 03:33 Aida Frederick M.D. Nov 21, 2016 18:12
[2016-11-21 19:00] VITALS: BP 137/73
[2016-11-21] MEDS ORDERED: Tubing IV Secondary IV ONE (19:23)
[2016-11-21] MEDS ORDERED: NS 275ml ONE (19:23)
[2016-11-21] MEDS ORDERED: D5 1/2NS 1000ml IV ONE (19:23)
[2016-11-21] MEDS ORDERED: Tamsulosin 0.4mg cap ORAL SCH (21:00)
[2016-11-21] MEDS: Clindamycin 600mg 50 ML IV SCH (22:06)
--- NOTE | 2016-11-21 23:09 | General Progress Note ---
Assessment/Plan Assessment/Plan Assessment - SBO vs ileus - Facial cellulitis - Anemia - s/p PEG - a fib - DM - HN - Renal failure - low K Recommendations - NPO - IVF - increase - check CT scan - check abd ultrasound - follow exam and labs - consider renal eval Encounter date 11/20/2016 Delayed entry note Subjective Allergies: Coded Allergies: AUBREY INHIBITORS (Verified Allergy, Unknown, ANGIOEDEMA, 09/17/12) Subjective Feels better no complaints discussed at length with Dr. Call re options and causes of ileus (+) BM daily Objective Last 24 Hour Vital Signs Date Time Temp Pulse Resp B/P Pulse Ox O2 Delivery O2 Flow Rate FiO2 11/21/16 20:52 63 127/76 11/21/16 19:00 97.3 68 20 137/73 95 Room Air 11/21/16 16:00 96.8 63 20 127/76 96 Room Air 11/21/16 12:00 97.9 77 19 129/54 98 Room Air 11/21/16 08:00 97.9 68 20 143/73 93 Room Air 11/21/16 04:00 96.9 60 18 114/76 96 Room Air 11/21/16 00:00 96.8 61 18 122/75 96 Room Air Intake and Output 11/20/16 11/21/16 19:00 07:00 Intake Total 300 ml 535.0 ml Output Total 410 ml 204 ml Balance -110 ml 331.0 ml IV Total 300 ml 535.0 ml Output Urine Total 4 ml Other 410 ml 200 ml # Voids 3 3 # Bowel Movements 3 4 Laboratory Tests 11/21/16 10:15: White Blood Count 5.9, Red Blood Count 3.78L, Hemoglobin 12.1L, Hematocrit 37.9L , Mean Corpuscular Volume 100H, Mean Corpuscular Hemoglobin 32.1H, Mean Corpuscular Hemoglobin Concent 32.0, Red Cell Distribution Width 13.6, Platelet Count 255, Mean Platelet Volume 8.0, Neutrophils (%) (Auto) 72.8, Lymphocytes (% ) (Auto) 12.3L, Monocytes (%) (Auto) 9.6, Eosinophils (%) (Auto) 4.3H, Basophils (%) (Auto) 1.1, Sodium Level 139, Potassium Level 3.4, Chloride Level 94L, Carbon Dioxide Level 31H, Anion Gap 14, Blood Urea Nitrogen 26H, Creatinine 2.7H, Estimat Glomerular Filtration Rate , Glucose Level 99, Calcium Level 8.2L Height (Feet): 5 Height (Inches): 9.00 Weight (Pounds): 170 Objective debilitated WM (+) neck scar CTA RR abd softer and less distended today, (+) GT no edema WILLIS AMADO Nov 21, 2016 23:09
--- NOTE | 2016-11-22 00:05 | Pulmonology Progress Note ---
Assessment/Plan Problems: (1) Respiratory insufficiency (2) Cellulitis (3) HTN (hypertension) (4) History of CVA (cerebrovascular accident) Assessment/Plan improving continue antibiotics biopsy results noted respiratory treatment titrate fio2 to sat of 92% Subjective ROS Limited/Unobtainable: Yes Respiratory: Reports: dyspnea at rest, dyspnea on exertion, productive cough, shortness of breath Allergies: Coded Allergies: AUBREY INHIBITORS (Verified Allergy, Unknown, ANGIOEDEMA, 09/17/12) Objective Last 24 Hour Vital Signs Date Time Temp Pulse Resp B/P Pulse Ox O2 Delivery O2 Flow Rate FiO2 11/21/16 20:52 63 127/76 11/21/16 19:00 97.3 68 20 137/73 95 Room Air 11/21/16 16:00 96.8 63 20 127/76 96 Room Air 11/21/16 12:00 97.9 77 19 129/54 98 Room Air 11/21/16 08:00 97.9 68 20 143/73 93 Room Air 11/21/16 04:00 96.9 60 18 114/76 96 Room Air Intake and Output 11/21/16 11/22/16 19:00 07:00 Intake Total 885.0 ml 100 ml Output Total 250 ml 650 ml Balance 635.0 ml -550 ml IV Total 885.0 ml 100 ml Output Urine Total 250 ml 650 ml # Voids 3 1 # Bowel Movements 2 General Appearance: no acute distress HEENT: normocephalic, atraumatic, PERRL Respiratory/Chest: chest wall non-tender, decreased breath sounds, accessory muscle use, rhonchi Cardiovascular: normal peripheral pulses, normal rate, regular rhythm, no JVD Abdomen: normal bowel sounds, soft, non tender, no organomegaly Genitourinary: normal external genitalia Extremities: no cyanosis Neurologic/Psychiatric: abnormal CN, motor weakness Laboratory Tests 11/21/16 10:15: White Blood Count 5.9, Red Blood Count 3.78L, Hemoglobin 12.1L, Hematocrit 37.9L , Mean Corpuscular Volume 100H, Mean Corpuscular Hemoglobin 32.1H, Mean Corpuscular Hemoglobin Concent 32.0, Red Cell Distribution Width 13.6, Platelet Count 255, Mean Platelet Volume 8.0, Neutrophils (%) (Auto) 72.8, Lymphocytes (% ) (Auto) 12.3L, Monocytes (%) (Auto) 9.6, Eosinophils (%) (Auto) 4.3H, Basophils (%) (Auto) 1.1, Sodium Level 139, Potassium Level 3.4, Chloride Level 94L, Carbon Dioxide Level 31H, Anion Gap 14, Blood Urea Nitrogen 26H, Creatinine 2.7H, Estimat Glomerular Filtration Rate , Glucose Level 99, Calcium Level 8.2L Current Medications Medications (Trade) Dose Ordered Sig/Yousuf Route PRN Reason Start Time Stop Time Status Last Admin Dose Admin Acetaminophen (Tylenol) 650 mg Q4H PRN ORAL fever 11/12/16 03:34 12/12/16 03:33 Amiodarone HCl (Cordarone) 100 mg DAILY GT 11/12/16 09:00 12/12/16 08:59 11/20/16 08:49 Apixaban (Eliquis) 2.5 mg Q12HR ORAL 11/12/16 09:00 12/12/16 08:59 11/21/16 20:54 Bisacodyl (Dulcolax) 10 mg TWICE A DAY RECTAL 11/19/16 10:00 12/19/16 09:59 11/19/16 11:33 Bupropion HCl (Wellbutrin) 75 mg Q12HR GT 11/18/16 11:06 12/12/16 08:59 11/21/16 08:54 Clindamycin HCl/ Dextrose (Cleocin 600mg) 50 ml @ 100 mls/hr Q8HR IV 11/21/16 22:00 11/28/16 21:59 11/21/16 22:06 Dextrose (Dextrose 50%) STAT PRN IV Hypoglycemia 11/12/16 03:35 12/12/16 03:34 Dextrose/Sodium Chloride (D5ns) 1,000 ml @ 100 mls/hr Q10H IV 11/21/16 16:30 12/21/16 16:29 11/21/16 18:11 Finasteride (Proscar) 5 mg DAILY GT 11/12/16 09:00 12/12/16 08:59 11/21/16 08:54 Insulin Aspart (NovoLOG) Q6HR SUBQ 11/14/16 18:00 12/14/16 17:59 11/14/16 19:08 Levothyroxine Sodium (Synthroid) 75 mcg DAILY@0630 ORAL 11/17/16 06:30 12/17/16 06:29 11/21/16 07:03 Metoclopramide HCl 5 mg 5 mg EVERY 8 HOURS IVP 11/21/16 14:00 12/21/16 13:59 11/21/16 22:06 Metoclopramide HCl 5 mg 5 mg Q8H PRN IVP Nausea & Vomiting 11/21/16 16:37 12/16/16 14:44 Metoprolol Tartrate (Lopressor) 25 mg Q12H GT 11/17/16 21:00 12/17/16 20:59 11/18/16 21:15 Ondansetron HCl (Zofran) 4 mg Q8H PRN IVP Nausea & Vomiting 11/19/16 21:15 12/19/16 21:14 Piperacillin Sod/ Tazobactam Sod 3.375 gm/Dextrose 110 ml @ 27.5 mls/hr Q12HR@0200,1400 IVPB 11/22/16 02:00 11/29/16 01:59 Polyethylene Glycol (Miralax) 17 gm HSPRN PRN GT Constipation 11/12/16 03:39 12/12/16 03:38 11/15/16 17:45 Tamsulosin HCl (Flomax) 0.4 mg BEDTIME ORAL 11/21/16 21:00 12/21/16 20:59 Valproic Acid (Depakene) 250 mg DAILY GT 11/12/16 09:00 12/12/16 08:59 11/21/16 08:55 Zolpidem Tartrate (Ambien) 5 mg HSPRN PRN GT Insomnia 11/14/16 17:24 12/12/16 03:33 MARY SELF Nov 22, 2016 00:05
[2016-11-22] MEDS: NovoLOG Insulin Flexpen SUBQ SCH ×4 (00:27→18:20)
[2016-11-22 00:32] VITALS: BP 115/74
[2016-11-22] MEDS: Piperacillin/Tazobactam 3.375 GM in D5W 110 ML IVPB SCH ×2 (00:56→15:16)
[2016-11-22] MEDS: D5NS 1,000 ML IV SCH ×3 (00:57→22:20)
[2016-11-22 04:17] VITALS: BP 126/71
[2016-11-22] MEDS: Clindamycin 600mg 50 ML IV SCH ×2 (04:43→14:06)
[2016-11-22] MEDS: Metoclopramide 10mg/2ml Inj IVP SCH ×3 (05:20→22:12)
[2016-11-22 07:20] LABS: BASOPHILS % (AUTO) 0.6 % (0.0-2.0); EOSINOPHILS % (AUTO) 2.9 % (0.0-3.0); LYMPHOCYTES % (AUTO) 6.9 % (20.0-45.0); MEAN CORPUSCULAR HEMOGLOBIN 32.7 PG (27.0-31.0); MEAN CORPUSCULAR HGB CONC 32.6 G/DL (32.0-36.0); MEAN CORPUSCULAR VOLUME 100 FL (80-99); MEAN PLATELET VOLUME 8.1 FL (6.5-10.1); MONOCYTES % (AUTO) 9.5 % (1.0-10.0); PLATELET COUNT 239 K/UL (150-450); RED BLOOD COUNT 3.56 M/UL (4.70-6.10); RED CELL DISTRIBUTION WIDTH 13.6 % (11.6-14.8); WHITE BLOOD COUNT 6.9 K/UL (4.8-10.8)
[2016-11-22 07:36] LABS: ALANINE AMINOTRANSFERASE 8 U/L (3-41); ALBUMIN/GLOBULIN RATIO 0.8 (1.0-2.7); ANION GAP 13 (5-15); ASPARTATE AMINO TRANSFERASE 15 U/L (5-40); CALCIUM 8.1 mg/dL (8.6-10.2); CARBON DIOXIDE 30 mEQ/L (20-30); CHLORIDE 98 mEQ/L (98-107); CREATININE 2.4 mg/dL (0.7-1.2); CRP QUANT 1.4 mg/dL (< 0.5); HEMOLYSIS 3; MAGNESIUM 2.3 mg/dL (1.7-2.5); PHOSPHORUS 2.5 mg/dL (2.5-4.8); POTASSIUM 2.9 mEQ/L (3.4-4.9); SODIUM 141 mEQ/L (135-145); TOTAL PROTEIN 5.5 g/dL (6.6-8.7); URIC ACID 5.5 mg/dL (3.0-7.5)
--- NOTE | 2016-11-22 07:46 | General Progress Note ---
Assessment/Plan Problem List: (1) Hypothyroidism ICD Codes: E03.9 - Hypothyroidism, unspecified SNOMED: 00069828 (2) Swelling of left side of face ICD Codes: R22.0 - Localized swelling, mass and lump, head SNOMED: 476492152 (3) Cellulitis and abscess of face ICD Codes: L03.211 - Cellulitis of face; L02.01 - Cutaneous abscess of face SNOMED: 430135460 (4) PEG (percutaneous endoscopic gastrostomy) adjustment/replacement/removal ICD Codes: Z43.1 - Encounter for attention to gastrostomy SNOMED: 374195384 (5) Dysphagia ICD Codes: R13.10 - Dysphagia SNOMED: 29693605 (6) History of respiratory failure ICD Codes: Z87.09 - History of respiratory failure SNOMED: 244646635 (7) History of CVA (cerebrovascular accident) ICD Codes: Z86.73 - History of CVA (cerebrovascular accident) SNOMED: 786183829 (8) Thyroid mass of unclear etiology ICD Codes: E07.89 - Other specified disorders of thyroid SNOMED: 887401085 (9) Diabetes ICD Codes: E11.9 - Diabetes SNOMED: 48652436 Assessment/Plan thyroid mass is benign TSH repeated and it is higher despite Levothyroxine 75 mcg daily will DC tablet and start Levothyroxine 100 mcg daily glucose values are well controlled continue blood glucose monitoring and Novolog coverage Subjective ROS Limited/Unobtainable: Yes Allergies: Coded Allergies: AUBREY INHIBITORS (Verified Allergy, Unknown, ANGIOEDEMA, 09/17/12) Subjective events noted - interval notes reviewed Objective Last 24 Hour Vital Signs Date Time Temp Pulse Resp B/P Pulse Ox O2 Delivery O2 Flow Rate FiO2 11/22/16 04:17 98.6 66 19 126/71 94 Room Air 11/22/16 00:32 97.9 62 20 115/74 95 Room Air 11/21/16 20:52 63 127/76 11/21/16 19:00 97.3 68 20 137/73 95 Room Air 11/21/16 16:00 96.8 63 20 127/76 96 Room Air 11/21/16 12:00 97.9 77 19 129/54 98 Room Air 11/21/16 08:00 97.9 68 20 143/73 93 Room Air Intake and Output 11/21/16 11/22/16 19:00 07:00 Intake Total 885.0 ml 1050 ml Output Total 250 ml 1650 ml Balance 635.0 ml -600 ml IV Total 885.0 ml 1050 ml Output Urine Total 250 ml 1650 ml # Voids 3 1 # Bowel Movements 2 1 Laboratory Tests 11/21/16 10:15: White Blood Count 5.9, Red Blood Count 3.78L, Hemoglobin 12.1L, Hematocrit 37.9L , Mean Corpuscular Volume 100H, Mean Corpuscular Hemoglobin 32.1H, Mean Corpuscular Hemoglobin Concent 32.0, Red Cell Distribution Width 13.6, Platelet Count 255, Mean Platelet Volume 8.0, Neutrophils (%) (Auto) 72.8, Lymphocytes (% ) (Auto) 12.3L, Monocytes (%) (Auto) 9.6, Eosinophils (%) (Auto) 4.3H, Basophils (%) (Auto) 1.1, Sodium Level 139, Potassium Level 3.4, Chloride Level 94L, Carbon Dioxide Level 31H, Anion Gap 14, Blood Urea Nitrogen 26H, Creatinine 2.7H, Estimat Glomerular Filtration Rate , Glucose Level 99, Calcium Level 8.2L 11/22/16 04:30: White Blood Count 6.9, Red Blood Count 3.56L, Hemoglobin 11.6L, Hematocrit 35.6L , Mean Corpuscular Volume 100H, Mean Corpuscular Hemoglobin 32.7H, Mean Corpuscular Hemoglobin Concent 32.6, Red Cell Distribution Width 13.6, Platelet Count 239, Mean Platelet Volume 8.1, Neutrophils (%) (Auto) 80.0H, Lymphocytes ( %) (Auto) 6.9L, Monocytes (%) (Auto) 9.5, Eosinophils (%) (Auto) 2.9, Basophils (%) (Auto) 0.6, Sodium Level 141, Potassium Level 2.9L, Chloride Level 98, Carbon Dioxide Level 30, Anion Gap 13, Blood Urea Nitrogen 22, Creatinine 2.4H, Estimat Glomerular Filtration Rate , Glucose Level 98, Calcium Level 8.1L, Uric Acid 5.5, Phosphorus Level 2.5, Magnesium Level 2.3, Total Bilirubin 0.4, Gamma Glutamyl Transpeptidase 12, Aspartate Amino Transf (AST/SGOT) 15, Alanine Aminotransferase (ALT/SGPT) 8, Alkaline Phosphatase 48, Total Creatine Kinase 15L, C-Reactive Protein, Quantitative 1.4H, Pro-B-Type Natriuretic Peptide 2017H , Total Protein 5.5L, Albumin 2.5L, Globulin 3.0, Albumin/Globulin Ratio 0.8L, Thyroid Stimulating Hormone (TSH) 68.050H, Random Vancomycin Level 25.8 Height (Feet): 5 Height (Inches): 9.00 Weight (Pounds): 170 General Appearance: lethargic EENT: pale conjunctivae Neck: normal alignment Cardiovascular: regular rhythm Respiratory/Chest: decreased breath sounds Abdomen: normal bowel sounds Objective Current Medications Medications (Trade) Dose Ordered Sig/Yousuf Route PRN Reason Start Time Stop Time Status Last Admin Dose Admin Acetaminophen (Tylenol) 650 mg Q4H PRN ORAL fever 11/12/16 03:34 12/12/16 03:33 Amiodarone HCl (Cordarone) 100 mg DAILY GT 11/12/16 09:00 12/12/16 08:59 11/20/16 08:49 Apixaban (Eliquis) 2.5 mg Q12HR ORAL 11/12/16 09:00 12/12/16 08:59 11/21/16 20:54 Bisacodyl (Dulcolax) 10 mg TWICE A DAY RECTAL 11/19/16 10:00 12/19/16 09:59 11/19/16 11:33 Bupropion HCl (Wellbutrin) 75 mg Q12HR GT 11/18/16 11:06 12/12/16 08:59 11/21/16 08:54 Clindamycin HCl/ Dextrose (Cleocin 600mg) 50 ml @ 100 mls/hr Q8HR IV 11/21/16 22:00 11/28/16 21:59 11/22/16 04:43 Dextrose (Dextrose 50%) STAT PRN IV Hypoglycemia 11/12/16 03:35 12/12/16 03:34 Dextrose/Sodium Chloride (D5ns) 1,000 ml @ 100 mls/hr Q10H IV 11/21/16 16:30 12/21/16 16:29 11/22/16 00:57 Finasteride (Proscar) 5 mg DAILY GT 11/12/16 09:00 12/12/16 08:59 11/21/16 08:54 Insulin Aspart (NovoLOG) Q6HR SUBQ 11/14/16 18:00 12/14/16 17:59 11/22/16 00:27 Levothyroxine Sodium (Synthroid) 75 mcg DAILY@0630 ORAL 11/17/16 06:30 12/17/16 06:29 11/22/16 05:41 Metoclopramide HCl 5 mg 5 mg EVERY 8 HOURS IVP 11/21/16 14:00 12/21/16 13:59 11/22/16 05:20 Metoclopramide HCl 5 mg 5 mg Q8H PRN IVP Nausea & Vomiting 11/21/16 16:37 12/16/16 14:44 Metoprolol Tartrate (Lopressor) 25 mg Q12H GT 11/17/16 21:00 12/17/16 20:59 11/18/16 21:15 Ondansetron HCl (Zofran) 4 mg Q8H PRN IVP Nausea & Vomiting 11/19/16 21:15 12/19/16 21:14 Piperacillin Sod/ Tazobactam Sod 3.375 gm/Dextrose 110 ml @ 27.5 mls/hr Q12HR@0200,1400 IVPB 11/22/16 02:00 11/29/16 01:59 11/22/16 00:56 Polyethylene Glycol (Miralax) 17 gm HSPRN PRN GT Constipation 11/12/16 03:39 12/12/16 03:38 11/15/16 17:45 Tamsulosin HCl (Flomax) 0.4 mg BEDTIME ORAL 11/21/16 21:00 12/21/16 20:59 Valproic Acid (Depakene) 250 mg DAILY GT 11/12/16 09:00 12/12/16 08:59 11/21/16 08:55 Zolpidem Tartrate (Ambien) 5 mg HSPRN PRN GT Insomnia 11/14/16 17:24 12/12/16 03:33 Item Value Date Time Bedside Blood Glucose 71 mg/dl 11/22/16 0600 Bedside Blood Glucose 125 mg/dl H 11/22/16 0027 Bedside Blood Glucose 125 mg/dl H 11/21/16 1800 Bedside Blood Glucose 97 mg/dl 11/21/16 1130 Bedside Blood Glucose 107 mg/dl 11/21/16 0659 BETTY GERMAIN Nov 22, 2016 07:46
[2016-11-22 08:14] VITALS: BP 124/55
--- NOTE | 2016-11-22 08:45 | General Progress Note ---
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 given exam, xrays, and prior abd surgeries (less likely ileus) - Facial cellulitis - Anemia - s/p PEG - a fib - DM - HN - Renal failure Recommendations - Begin TF trial - continue Reglan and Dulcolax for motility - follow exam and labs - Renal f/u Subjective Allergies: Coded Allergies: AUBREY INHIBITORS (Verified Allergy, Unknown, ANGIOEDEMA, 09/17/12) Subjective CT noted Patient without N/V today no complaints Objective Last 24 Hour Vital Signs Date Time Temp Pulse Resp B/P Pulse Ox O2 Delivery O2 Flow Rate FiO2 11/22/16 08:14 98.4 64 20 124/55 95 Room Air 11/22/16 04:17 98.6 66 19 126/71 94 Room Air 11/22/16 00:32 97.9 62 20 115/74 95 Room Air 11/21/16 20:52 63 127/76 11/21/16 19:00 97.3 68 20 137/73 95 Room Air 11/21/16 16:00 96.8 63 20 127/76 96 Room Air 11/21/16 12:00 97.9 77 19 129/54 98 Room Air Intake and Output 11/21/16 11/22/16 19:00 07:00 Intake Total 885.0 ml 1050 ml Output Total 250 ml 1650 ml Balance 635.0 ml -600 ml IV Total 885.0 ml 1050 ml Output Urine Total 250 ml 1650 ml # Voids 3 1 # Bowel Movements 2 1 Laboratory Tests 11/21/16 10:15: White Blood Count 5.9, Red Blood Count 3.78L, Hemoglobin 12.1L, Hematocrit 37.9L , Mean Corpuscular Volume 100H, Mean Corpuscular Hemoglobin 32.1H, Mean Corpuscular Hemoglobin Concent 32.0, Red Cell Distribution Width 13.6, Platelet Count 255, Mean Platelet Volume 8.0, Neutrophils (%) (Auto) 72.8, Lymphocytes (% ) (Auto) 12.3L, Monocytes (%) (Auto) 9.6, Eosinophils (%) (Auto) 4.3H, Basophils (%) (Auto) 1.1, Sodium Level 139, Potassium Level 3.4, Chloride Level 94L, Carbon Dioxide Level 31H, Anion Gap 14, Blood Urea Nitrogen 26H, Creatinine 2.7H, Estimat Glomerular Filtration Rate , Glucose Level 99, Calcium Level 8.2L 11/22/16 04:30: White Blood Count 6.9, Red Blood Count 3.56L, Hemoglobin 11.6L, Hematocrit 35.6L , Mean Corpuscular Volume 100H, Mean Corpuscular Hemoglobin 32.7H, Mean Corpuscular Hemoglobin Concent 32.6, Red Cell Distribution Width 13.6, Platelet Count 239, Mean Platelet Volume 8.1, Neutrophils (%) (Auto) 80.0H, Lymphocytes ( %) (Auto) 6.9L, Monocytes (%) (Auto) 9.5, Eosinophils (%) (Auto) 2.9, Basophils (%) (Auto) 0.6, Sodium Level 141, Potassium Level 2.9L, Chloride Level 98, Carbon Dioxide Level 30, Anion Gap 13, Blood Urea Nitrogen 22, Creatinine 2.4H, Estimat Glomerular Filtration Rate , Glucose Level 98, Calcium Level 8.1L, Uric Acid 5.5, Phosphorus Level 2.5, Magnesium Level 2.3, Total Bilirubin 0.4, Gamma Glutamyl Transpeptidase 12, Aspartate Amino Transf (AST/SGOT) 15, Alanine Aminotransferase (ALT/SGPT) 8, Alkaline Phosphatase 48, Total Creatine Kinase 15L, C-Reactive Protein, Quantitative 1.4H, Pro-B-Type Natriuretic Peptide 2017H , Total Protein 5.5L, Albumin 2.5L, Globulin 3.0, Albumin/Globulin Ratio 0.8L, Thyroid Stimulating Hormone (TSH) 68.050H, Random Vancomycin Level 25.8 Height (Feet): 5 Height (Inches): 9.00 Weight (Pounds): 170 Objective debilitated WM (+) neck scar CTA RR abd softer and less distended today, (+) GT no edema WILLIS AMADO Nov 22, 2016 08:45
[2016-11-22] MEDS: Metoprolol Tartrate 12.5mg TAB GT SCH ×2 (09:00→22:12)
[2016-11-22] MEDS ORDERED: Tamsulosin 0.4mg cap ORAL SCH ×2 (09:30→10:00)
--- NOTE | 2016-11-22 09:30 | General Progress Note ---
Assessment/Plan Status: stable Status Narrative Cr lower- Vanco level down to 25 Assessment/Plan Cr 0.9 in 11/15 went up to 2.7 in 11/21 Acute renal failure due to Vancomycin- Vanco trough on 11/17 over 54 , on 11/20 over 38 Hypothyroidism Plan: continue to Hold Vanco Monitor levels- adjust Zosyn accordinly Monitor renal parameters- Keep BP over 100 syst DC Garnett start flomax Subjective ROS Limited/Unobtainable: No Constitutional: Reports: malaise, weakness Allergies: Coded Allergies: AUBREY INHIBITORS (Verified Allergy, Unknown, ANGIOEDEMA, 09/17/12) Objective Last 24 Hour Vital Signs Date Time Temp Pulse Resp B/P Pulse Ox O2 Delivery O2 Flow Rate FiO2 11/22/16 08:14 98.4 64 20 124/55 95 Room Air 11/22/16 04:17 98.6 66 19 126/71 94 Room Air 11/22/16 00:32 97.9 62 20 115/74 95 Room Air 11/21/16 20:52 63 127/76 11/21/16 19:00 97.3 68 20 137/73 95 Room Air 11/21/16 16:00 96.8 63 20 127/76 96 Room Air 11/21/16 12:00 97.9 77 19 129/54 98 Room Air Intake and Output 11/21/16 11/22/16 19:00 07:00 Intake Total 885.0 ml 1050 ml Output Total 250 ml 1650 ml Balance 635.0 ml -600 ml IV Total 885.0 ml 1050 ml Output Urine Total 250 ml 1650 ml # Voids 3 1 # Bowel Movements 2 1 Laboratory Tests 11/21/16 10:15: White Blood Count 5.9, Red Blood Count 3.78L, Hemoglobin 12.1L, Hematocrit 37.9L , Mean Corpuscular Volume 100H, Mean Corpuscular Hemoglobin 32.1H, Mean Corpuscular Hemoglobin Concent 32.0, Red Cell Distribution Width 13.6, Platelet Count 255, Mean Platelet Volume 8.0, Neutrophils (%) (Auto) 72.8, Lymphocytes (% ) (Auto) 12.3L, Monocytes (%) (Auto) 9.6, Eosinophils (%) (Auto) 4.3H, Basophils (%) (Auto) 1.1, Sodium Level 139, Potassium Level 3.4, Chloride Level 94L, Carbon Dioxide Level 31H, Anion Gap 14, Blood Urea Nitrogen 26H, Creatinine 2.7H, Estimat Glomerular Filtration Rate , Glucose Level 99, Calcium Level 8.2L 11/22/16 04:30: White Blood Count 6.9, Red Blood Count 3.56L, Hemoglobin 11.6L, Hematocrit 35.6L , Mean Corpuscular Volume 100H, Mean Corpuscular Hemoglobin 32.7H, Mean Corpuscular Hemoglobin Concent 32.6, Red Cell Distribution Width 13.6, Platelet Count 239, Mean Platelet Volume 8.1, Neutrophils (%) (Auto) 80.0H, Lymphocytes ( %) (Auto) 6.9L, Monocytes (%) (Auto) 9.5, Eosinophils (%) (Auto) 2.9, Basophils (%) (Auto) 0.6, Sodium Level 141, Potassium Level 2.9L, Chloride Level 98, Carbon Dioxide Level 30, Anion Gap 13, Blood Urea Nitrogen 22, Creatinine 2.4H, Estimat Glomerular Filtration Rate , Glucose Level 98, Calcium Level 8.1L, Uric Acid 5.5, Phosphorus Level 2.5, Magnesium Level 2.3, Total Bilirubin 0.4, Gamma Glutamyl Transpeptidase 12, Aspartate Amino Transf (AST/SGOT) 15, Alanine Aminotransferase (ALT/SGPT) 8, Alkaline Phosphatase 48, Total Creatine Kinase 15L, C-Reactive Protein, Quantitative 1.4H, Pro-B-Type Natriuretic Peptide 2017H , Total Protein 5.5L, Albumin 2.5L, Globulin 3.0, Albumin/Globulin Ratio 0.8L, Thyroid Stimulating Hormone (TSH) 68.050H, Random Vancomycin Level 25.8 Height (Feet): 5 Height (Inches): 9.00 Weight (Pounds): 170 General Appearance: no apparent distress Cardiovascular: normal rate Respiratory/Chest: decreased breath sounds Abdomen: soft, distended DARIN QUESADA Nov 22, 2016 09:30
[2016-11-22] MEDS: Amiodarone 200mg tab GT SCH (10:53)
[2016-11-22] MEDS: Valproic Acid 250mg/5ml Liquid GT SCH (10:54)
[2016-11-22] MEDS: BuPROPion 75mg Tab GT SCH ×2 (10:54→22:12)
[2016-11-22] MEDS: Eliquis 2.5mg tablet ORAL SCH ×2 (10:56→22:12)
[2016-11-22 11:28] VITALS: BP 117/65
--- NOTE | 2016-11-22 12:44 | General Progress Note ---
Assessment/Plan Problem List: (1) History of CVA (cerebrovascular accident) ICD Codes: Z86.73 - History of CVA (cerebrovascular accident) SNOMED: 716548023 (2) History of respiratory failure ICD Codes: Z87.09 - History of respiratory failure SNOMED: 503798333 (3) Dysphagia ICD Codes: R13.10 - Dysphagia SNOMED: 24709032 (4) PEG (percutaneous endoscopic gastrostomy) adjustment/replacement/removal ICD Codes: Z43.1 - Encounter for attention to gastrostomy SNOMED: 214009219 (5) Cellulitis and abscess of face ICD Codes: L03.211 - Cellulitis of face; L02.01 - Cutaneous abscess of face SNOMED: 316766436 (6) Swelling of left side of face ICD Codes: R22.0 - Localized swelling, mass and lump, head SNOMED: 212745572 (7) Diabetes ICD Codes: E11.9 - Diabetes SNOMED: 96899795 (8) HTN (hypertension) ICD Codes: I10 - HTN (hypertension) SNOMED: 25934961 (9) Sepsis ICD Codes: A41.9 - Sepsis SNOMED: 38291943 (10) Thyroid mass of unclear etiology ICD Codes: E07.89 - Other specified disorders of thyroid SNOMED: 668740812 Status: progressing Assessment/Plan facial celluitis improving sbo vs ileus sp vomit per dr munoz he doesnt have sbo and has ileus instead Subjective ROS Limited/Unobtainable: Yes Constitutional: Reports: no symptoms Allergies: Coded Allergies: AUBREY INHIBITORS (Verified Allergy, Unknown, ANGIOEDEMA, 09/17/12) Objective Last 24 Hour Vital Signs Date Time Temp Pulse Resp B/P Pulse Ox O2 Delivery O2 Flow Rate FiO2 11/22/16 11:28 98.1 63 20 117/65 99 Room Air 11/22/16 08:14 98.4 64 20 124/55 95 Room Air 11/22/16 04:17 98.6 66 19 126/71 94 Room Air 11/22/16 00:32 97.9 62 20 115/74 95 Room Air 11/21/16 20:52 63 127/76 11/21/16 19:00 97.3 68 20 137/73 95 Room Air 11/21/16 16:00 96.8 63 20 127/76 96 Room Air Intake and Output 2/10/17 2/11/17 19:00 07:00 Intake Total 885.0 ml 1050 ml Output Total 250 ml 1650 ml Balance 635.0 ml -600 ml IV Total 885.0 ml 1050 ml Output Urine Total 250 ml 1650 ml # Voids 3 1 # Bowel Movements 2 1 Laboratory Tests 11/22/16 04:30: White Blood Count 6.9, Red Blood Count 3.56L, Hemoglobin 11.6L, Hematocrit 35.6L , Mean Corpuscular Volume 100H, Mean Corpuscular Hemoglobin 32.7H, Mean Corpuscular Hemoglobin Concent 32.6, Red Cell Distribution Width 13.6, Platelet Count 239, Mean Platelet Volume 8.1, Neutrophils (%) (Auto) 80.0H, Lymphocytes ( %) (Auto) 6.9L, Monocytes (%) (Auto) 9.5, Eosinophils (%) (Auto) 2.9, Basophils (%) (Auto) 0.6, Sodium Level 141, Potassium Level 2.9L, Chloride Level 98, Carbon Dioxide Level 30, Anion Gap 13, Blood Urea Nitrogen 22, Creatinine 2.4H, Estimat Glomerular Filtration Rate , Glucose Level 98, Uric Acid 5.5, Calcium Level 8.1L, Phosphorus Level 2.5, Magnesium Level 2.3, Total Bilirubin 0.4, Gamma Glutamyl Transpeptidase 12, Aspartate Amino Transf (AST/SGOT) 15, Alanine Aminotransferase (ALT/SGPT) 8, Alkaline Phosphatase 48, Total Creatine Kinase 15L, C-Reactive Protein, Quantitative 1.4H, Pro-B-Type Natriuretic Peptide 2017H , Total Protein 5.5L, Albumin 2.5L, Globulin 3.0, Albumin/Globulin Ratio 0.8L, Thyroid Stimulating Hormone (TSH) 68.050H, Random Vancomycin Level 25.8 Height (Feet): 5 Height (Inches): 9.00 Weight (Pounds): 170 EENT: PERRL/EOMI Neck: supple Cardiovascular: normal rate Respiratory/Chest: lungs clear Laina Pereira MD Nov 22, 2016 12:43
--- NOTE | 2016-11-22 14:47 | Cardiac Electrophysiology PN ---
Assessment/Plan Status Narrative Technically difficult study due to poor acoustic windows and GI Tube blocking scan area. Apical views obtained only. Study quality precludes accurate assessment of regional wall motion. M-mode measurements of left ventricle not obtainable. Normal left ventricular chamber size, grossly systolic function and wall motion to extent visualized. Left ventricular ejection fraction estimated to be 55-60 %. Mild ventricular hypertrophy. No evidence of pericardial fat or effusion. All other cardiac chamber sizes are within normal limits. Aortic valve calcification with decreased cusp excursion. Moderately thickened mitral valve leaflets with normal excursion. Moderate mitral annulus and aortic root calcification. Pulmonic valve not visualized. Normal tricuspid valve structure. Subcostal views not obtainable. Assessment/Plan 1. Status post [facility] [place] permanent pacemaker implantation with normal function 2. Paroxysmal atrial fibrillation, in sinus rhythm, on amiodarone 100 mg daily, metoprolol 25 bid and Eliquis 2.5 mg twice a day. 3. Hypertension.Continue metoprolol 25 bid. Echocardiogram EF 55% 4. Hypothyroidism, on Synthroid under management of Dr. Chairez. 5. Left facial cellulitis improving on iv ABx. CT scan of the sinuses showed soft tissue swelling, and no abscess 6. Dysphagia, status post PEG 7. Diabetes. 8. Thyroid mass. FNA of thyroid mass performed - benign pathology DW RN Subjective Subjective Alert in NAD.On iv antibiotics. Tolerating GT feeding. Objective Last 24 Hour Vital Signs Date Time Temp Pulse Resp B/P Pulse Ox O2 Delivery O2 Flow Rate FiO2 11/22/16 11:28 98.1 63 20 117/65 99 Room Air 11/22/16 09:00 63 117/65 11/22/16 08:14 98.4 64 20 124/55 95 Room Air 11/22/16 04:17 98.6 66 19 126/71 94 Room Air 11/22/16 00:32 97.9 62 20 115/74 95 Room Air 11/21/16 20:52 63 127/76 11/21/16 19:00 97.3 68 20 137/73 95 Room Air 11/21/16 16:00 96.8 63 20 127/76 96 Room Air Intake and Output 11/21/16 11/22/16 19:00 07:00 Intake Total 885.0 ml 1050 ml Output Total 250 ml 1650 ml Balance 635.0 ml -600 ml IV Total 885.0 ml 1050 ml Output Urine Total 250 ml 1650 ml # Voids 3 1 # Bowel Movements 2 1 Laboratory Tests Test 11/22/16 04:30 White Blood Count 6.9 K/UL (4.8-10.8) Red Blood Count 3.56 M/UL (4.70-6.10) L Hemoglobin 11.6 G/DL (14.2-18.0) L Hematocrit 35.6 % (42.0-52.0) L Mean Corpuscular Volume 100 FL (80-99) H Mean Corpuscular Hemoglobin 32.7 PG (27.0-31.0) H Mean Corpuscular Hemoglobin Concent 32.6 G/DL (32.0-36.0) Red Cell Distribution Width 13.6 % (11.6-14.8) Platelet Count 239 K/UL (150-450) Mean Platelet Volume 8.1 FL (6.5-10.1) Neutrophils (%) (Auto) 80.0 % (45.0-75.0) H Lymphocytes (%) (Auto) 6.9 % (20.0-45.0) L Monocytes (%) (Auto) 9.5 % (1.0-10.0) Eosinophils (%) (Auto) 2.9 % (0.0-3.0) Basophils (%) (Auto) 0.6 % (0.0-2.0) Sodium Level 141 mEQ/L (135-145) Potassium Level 2.9 mEQ/L (3.4-4.9) L Chloride Level 98 mEQ/L (98-107) Carbon Dioxide Level 30 mEQ/L (20-30) Anion Gap 13 (5-15) Blood Urea Nitrogen 22 mg/dL (7-23) Creatinine 2.4 mg/dL (0.7-1.2) H Estimat Glomerular Filtration Rate mL/min (>60) Glucose Level 98 mg/dL (74-106) Uric Acid 5.5 mg/dL (3.0-7.5) Calcium Level 8.1 mg/dL (8.6-10.2) L Phosphorus Level 2.5 mg/dL (2.5-4.8) Magnesium Level 2.3 mg/dL (1.7-2.5) Total Bilirubin 0.4 mg/dL (0.0-1.2) Gamma Glutamyl Transpeptidase 12 U/L (8-61) Aspartate Amino Transf (AST/SGOT) 15 U/L (5-40) Alanine Aminotransferase (ALT/SGPT) 8 U/L (3-41) Alkaline Phosphatase 48 U/L (40-129) Total Creatine Kinase 15 U/L (38-174) L C-Reactive Protein, Quantitative 1.4 mg/dL (< 0.5) H Pro-B-Type Natriuretic Peptide 2017 pg/mL (0-450) H Total Protein 5.5 g/dL (6.6-8.7) L Albumin 2.5 g/dL (3.5-5.2) L Globulin 3.0 g/dL Albumin/Globulin Ratio 0.8 (1.0-2.7) L Thyroid Stimulating Hormone (TSH) 68.050 uIU/mL (0.300-4.500) Random Vancomycin Level 25.8 ug/mL Objective Neck: No JVD. S/P Thyroid biopsy. Cardiovascular: regular rhythm.2/6 Systolic murmur LSB. Pacer left subclavian. Respiratory/Chest: lungs clear Abdomen: Soft. PEG intact. Extremities: no edema HILDA MEJIA Nov 22, 2016 14:47
--- NOTE | 2016-11-22 15:08 | General Surgery Progress Note ---
General Surgery-Progress Note Subjective Symptoms: BM Objective Last 24 Hour Vital Signs Date Time Temp Pulse Resp B/P Pulse Ox O2 Delivery O2 Flow Rate FiO2 11/22/16 11:28 98.1 63 20 117/65 99 Room Air 11/22/16 09:00 63 117/65 11/22/16 08:14 98.4 64 20 124/55 95 Room Air 11/22/16 04:17 98.6 66 19 126/71 94 Room Air 11/22/16 00:32 97.9 62 20 115/74 95 Room Air 11/21/16 20:52 63 127/76 11/21/16 19:00 97.3 68 20 137/73 95 Room Air 11/21/16 16:00 96.8 63 20 127/76 96 Room Air I&O Intake and Output 11/21/16 11/22/16 19:00 07:00 Intake Total 885.0 ml 1050 ml Output Total 250 ml 1650 ml Balance 635.0 ml -600 ml IV Total 885.0 ml 1050 ml Output Urine Total 250 ml 1650 ml # Voids 3 1 # Bowel Movements 2 1 Respiratory: clear Abdomen: soft, flat, non-tender, present bowel sounds Extremities: no tenderness Laboratory Tests Test 11/22/16 04:30 White Blood Count 6.9 K/UL (4.8-10.8) Red Blood Count 3.56 M/UL (4.70-6.10) L Hemoglobin 11.6 G/DL (14.2-18.0) L Hematocrit 35.6 % (42.0-52.0) L Mean Corpuscular Volume 100 FL (80-99) H Mean Corpuscular Hemoglobin 32.7 PG (27.0-31.0) H Mean Corpuscular Hemoglobin Concent 32.6 G/DL (32.0-36.0) Red Cell Distribution Width 13.6 % (11.6-14.8) Platelet Count 239 K/UL (150-450) Mean Platelet Volume 8.1 FL (6.5-10.1) Neutrophils (%) (Auto) 80.0 % (45.0-75.0) H Lymphocytes (%) (Auto) 6.9 % (20.0-45.0) L Monocytes (%) (Auto) 9.5 % (1.0-10.0) Eosinophils (%) (Auto) 2.9 % (0.0-3.0) Basophils (%) (Auto) 0.6 % (0.0-2.0) Sodium Level 141 mEQ/L (135-145) Potassium Level 2.9 mEQ/L (3.4-4.9) L Chloride Level 98 mEQ/L (98-107) Carbon Dioxide Level 30 mEQ/L (20-30) Anion Gap 13 (5-15) Blood Urea Nitrogen 22 mg/dL (7-23) Creatinine 2.4 mg/dL (0.7-1.2) H Estimat Glomerular Filtration Rate mL/min (>60) Glucose Level 98 mg/dL (74-106) Uric Acid 5.5 mg/dL (3.0-7.5) Calcium Level 8.1 mg/dL (8.6-10.2) L Phosphorus Level 2.5 mg/dL (2.5-4.8) Magnesium Level 2.3 mg/dL (1.7-2.5) Total Bilirubin 0.4 mg/dL (0.0-1.2) Gamma Glutamyl Transpeptidase 12 U/L (8-61) Aspartate Amino Transf (AST/SGOT) 15 U/L (5-40) Alanine Aminotransferase (ALT/SGPT) 8 U/L (3-41) Alkaline Phosphatase 48 U/L (40-129) Total Creatine Kinase 15 U/L (38-174) L C-Reactive Protein, Quantitative 1.4 mg/dL (< 0.5) H Pro-B-Type Natriuretic Peptide 2017 pg/mL (0-450) H Total Protein 5.5 g/dL (6.6-8.7) L Albumin 2.5 g/dL (3.5-5.2) L Globulin 3.0 g/dL Albumin/Globulin Ratio 0.8 (1.0-2.7) L Thyroid Stimulating Hormone (TSH) 68.050 uIU/mL (0.300-4.500) Random Vancomycin Level 25.8 ug/mL Assessment Additional Comments ileus Plan Additional Comments no surgery indicated at this time AURELIA ROGERS Nov 22, 2016 15:08
[2016-11-22 16:00] VITALS: BP 121/65
--- NOTE | 2016-11-22 16:04 | Infectious Diseases Prog Note ---
Assessment/Plan Problems: (1) Cellulitis and abscess of face Assessment & Plan: improving on zosyn and vancomycin empirically , vancomycin on hold since it is super therapeutic , CT scan of the sinuses showed soft tissue swelling, and no abscess, can't do an MRI of the head with contrast to rule out any soft tissue abscess or infiltration since he has pacemaker. will d/ c vancomycin and clindamycin since he still has high level of vancomycin in his system , ENT is following (2) Cellulitis Assessment & Plan: of the neck ,improving, CT scan showed cellulitis and right lower thyroids pole mass S/P biopsy with pathology showed benign nodule , continue zosyn , monitor clinically (3) Diabetes Assessment & Plan: recommend tight glycemic control to keep blood glucose between 80-120 (4) HTN (hypertension) Assessment & Plan: continue meds to keep SBP <140 (5) Thyroid mass of unclear etiology Assessment & Plan: had US and FNA biopsy , pathology showed benign nodule , endocrinology is following (6) Ileus Assessment & Plan: improved , no recurrent vomiting, no abdominal pain. had CT abdomen showed illeus , restarted on tube feeding as per general surgery Subjective HEENT: Reports: other - left facial swelling and redness Allergies: Coded Allergies: AUBREY INHIBITORS (Verified Allergy, Unknown, ANGIOEDEMA, 09/17/12) All Systems: reviewed and negative except above Objective Vital Signs Last 24 Hour Vital Signs Date Time Temp Pulse Resp B/P Pulse Ox O2 Delivery O2 Flow Rate FiO2 11/22/16 11:28 98.1 63 20 117/65 99 Room Air 11/22/16 09:00 63 117/65 11/22/16 08:14 98.4 64 20 124/55 95 Room Air 11/22/16 04:17 98.6 66 19 126/71 94 Room Air 11/22/16 00:32 97.9 62 20 115/74 95 Room Air 11/21/16 20:52 63 127/76 11/21/16 19:00 97.3 68 20 137/73 95 Room Air Height (Feet): 5 Height (Inches): 9.00 Weight (Pounds): 170 General Appearance: WD/WN, no acute distress, other - left facial swelling HEENT: normocephalic, atraumatic, anicteric, mucous membranes moist Respiratory/Chest: chest wall non-tender, lungs clear, normal breath sounds, no respiratory distress, no accessory muscle use Cardiovascular: normal peripheral pulses, normal rate, regular rhythm, no gallop/murmur, no JVD Abdomen: normal bowel sounds, soft, non tender, no organomegaly, non distended , no mass Extremities: no cyanosis, no clubbing Skin: no rash, no lesions Laboratory Tests Test 11/22/16 04:30 White Blood Count 6.9 K/UL (4.8-10.8) Red Blood Count 3.56 M/UL (4.70-6.10) L Hemoglobin 11.6 G/DL (14.2-18.0) L Hematocrit 35.6 % (42.0-52.0) L Mean Corpuscular Volume 100 FL (80-99) H Mean Corpuscular Hemoglobin 32.7 PG (27.0-31.0) H Mean Corpuscular Hemoglobin Concent 32.6 G/DL (32.0-36.0) Red Cell Distribution Width 13.6 % (11.6-14.8) Platelet Count 239 K/UL (150-450) Mean Platelet Volume 8.1 FL (6.5-10.1) Neutrophils (%) (Auto) 80.0 % (45.0-75.0) H Lymphocytes (%) (Auto) 6.9 % (20.0-45.0) L Monocytes (%) (Auto) 9.5 % (1.0-10.0) Eosinophils (%) (Auto) 2.9 % (0.0-3.0) Basophils (%) (Auto) 0.6 % (0.0-2.0) Sodium Level 141 mEQ/L (135-145) Potassium Level 2.9 mEQ/L (3.4-4.9) L Chloride Level 98 mEQ/L (98-107) Carbon Dioxide Level 30 mEQ/L (20-30) Anion Gap 13 (5-15) Blood Urea Nitrogen 22 mg/dL (7-23) Creatinine 2.4 mg/dL (0.7-1.2) H Estimat Glomerular Filtration Rate mL/min (>60) Glucose Level 98 mg/dL (74-106) Uric Acid 5.5 mg/dL (3.0-7.5) Calcium Level 8.1 mg/dL (8.6-10.2) L Phosphorus Level 2.5 mg/dL (2.5-4.8) Magnesium Level 2.3 mg/dL (1.7-2.5) Total Bilirubin 0.4 mg/dL (0.0-1.2) Gamma Glutamyl Transpeptidase 12 U/L (8-61) Aspartate Amino Transf (AST/SGOT) 15 U/L (5-40) Alanine Aminotransferase (ALT/SGPT) 8 U/L (3-41) Alkaline Phosphatase 48 U/L (40-129) Total Creatine Kinase 15 U/L (38-174) L C-Reactive Protein, Quantitative 1.4 mg/dL (< 0.5) H Pro-B-Type Natriuretic Peptide 2017 pg/mL (0-450) H Total Protein 5.5 g/dL (6.6-8.7) L Albumin 2.5 g/dL (3.5-5.2) L Globulin 3.0 g/dL Albumin/Globulin Ratio 0.8 (1.0-2.7) L Thyroid Stimulating Hormone (TSH) 68.050 uIU/mL (0.300-4.500) Random Vancomycin Level 25.8 ug/mL Current Medications Medications (Trade) Dose Ordered Sig/Yousuf Route PRN Reason Start Time Stop Time Status Last Admin Dose Admin Acetaminophen (Tylenol) 650 mg Q4H PRN ORAL fever 11/12/16 03:34 12/12/16 03:33 Amiodarone HCl (Cordarone) 100 mg DAILY GT 11/12/16 09:00 12/12/16 08:59 11/22/16 10:53 Apixaban (Eliquis) 2.5 mg Q12HR ORAL 11/12/16 09:00 12/12/16 08:59 11/22/16 10:56 Bisacodyl (Dulcolax) 10 mg TWICE A DAY RECTAL 11/19/16 10:00 12/19/16 09:59 11/19/16 11:33 Bupropion HCl (Wellbutrin) 75 mg Q12HR GT 11/18/16 11:06 12/12/16 08:59 11/22/16 10:54 Clindamycin HCl/ Dextrose (Cleocin 600mg) 50 ml @ 100 mls/hr Q8HR IV 11/21/16 22:00 11/28/16 21:59 11/22/16 14:06 Dextrose (Dextrose 50%) STAT PRN IV Hypoglycemia 11/12/16 03:35 12/12/16 03:34 Dextrose/Sodium Chloride (D5ns) 1,000 ml @ 100 mls/hr Q10H IV 11/21/16 16:30 12/21/16 16:29 11/22/16 13:50 Finasteride (Proscar) 5 mg DAILY GT 11/12/16 09:00 12/12/16 08:59 11/22/16 10:54 Insulin Aspart (NovoLOG) Q6HR SUBQ 11/14/16 18:00 12/14/16 17:59 11/22/16 13:43 Levothyroxine Sodium (Synthroid) 100 mcg DAILY IV 11/22/16 12:00 12/22/16 11:59 11/22/16 13:51 Metoclopramide HCl 5 mg 5 mg EVERY 8 HOURS IVP 11/21/16 14:00 12/21/16 13:59 11/22/16 14:06 Metoclopramide HCl 5 mg 5 mg Q8H PRN IVP Nausea & Vomiting 11/21/16 16:37 12/16/16 14:44 Metoprolol Tartrate (Lopressor) 25 mg Q12H GT 11/17/16 21:00 12/17/16 20:59 11/18/16 21:15 Ondansetron HCl (Zofran) 4 mg Q8H PRN IVP Nausea & Vomiting 11/19/16 21:15 12/19/16 21:14 Piperacillin Sod/ Tazobactam Sod 3.375 gm/Dextrose 110 ml @ 27.5 mls/hr Q12HR@0200,1400 IVPB 11/22/16 02:00 11/29/16 01:59 11/22/16 15:16 Polyethylene Glycol (Miralax) 17 gm HSPRN PRN GT Constipation 11/12/16 03:39 12/12/16 03:38 11/15/16 17:45 Tamsulosin HCl (Flomax) 0.4 mg BID ORAL 11/22/16 10:00 12/22/16 09:59 Valproic Acid (Depakene) 250 mg DAILY GT 11/12/16 09:00 12/12/16 08:59 11/22/16 10:54 Zolpidem Tartrate (Ambien) 5 mg HSPRN PRN GT Insomnia 11/14/16 17:24 12/12/16 03:33 Aida Frederick M.D. Nov 22, 2016 16:04
--- NOTE | 2016-11-22 16:43 | General Progress Note ---
Assessment/Plan Assessment/Plan 1. Left-sided facial erythema, cellulitis, is on antibiotics. Continue abx. Have reviewed imaging of thyroid, does not appear change in nodules. S/p bx and now pending MRI to r/o malgiancy 2. Anemia secondary to chronic disease. 3. Right lower lobe thyroid nodule 19 x 11mm, s/p biopsy 4. Diabetes mellitus. 5. Atrial fibrillation. 6. Cellulitis of the face. 7. Diabetes mellitus. 8. Hypertension. 9. Psychiatric history. 10. Afib on eliquis RECOMMENDATIONS: 1. Monitor counts. 2. Transfuse to hemoglobin >7 3. MRI query head pending 4. Followup on ID, endo, Pulmonary recs, ENT recs 5. s/p biopsy of right thyroid nodule mass. 6. DVT ppx with eliquis. 7. GI ppx as needed. 8. Pain control. 9. Antibiotics as needed. 10. staff Thank you, Sue Alcaraz MD Subjective Constitutional: Reports: no symptoms HEENT: Reports: no symptoms Cardiovascular: Reports: no symptoms Respiratory: Reports: no symptoms Gastrointestinal/Abdominal: Reports: no symptoms Genitourinary: Reports: no symptoms Neurologic/Psychiatric: Reports: no symptoms Endocrine: Reports: no symptoms Hematologic/Lymphatic: Reports: no symptoms Allergies: Coded Allergies: AUBREY INHIBITORS (Verified Allergy, Unknown, ANGIOEDEMA, 09/17/12) Objective Last 24 Hour Vital Signs Date Time Temp Pulse Resp B/P Pulse Ox O2 Delivery O2 Flow Rate FiO2 11/22/16 11:28 98.1 63 20 117/65 99 Room Air 11/22/16 09:00 63 117/65 11/22/16 08:14 98.4 64 20 124/55 95 Room Air 11/22/16 04:17 98.6 66 19 126/71 94 Room Air 11/22/16 00:32 97.9 62 20 115/74 95 Room Air 11/21/16 20:52 63 127/76 11/21/16 19:00 97.3 68 20 137/73 95 Room Air Intake and Output 11/21/16 11/22/16 19:00 07:00 Intake Total 885.0 ml 1050 ml Output Total 250 ml 1650 ml Balance 635.0 ml -600 ml IV Total 885.0 ml 1050 ml Output Urine Total 250 ml 1650 ml # Voids 3 1 # Bowel Movements 2 1 Laboratory Tests 11/22/16 04:30: White Blood Count 6.9, Red Blood Count 3.56L, Hemoglobin 11.6L, Hematocrit 35.6L , Mean Corpuscular Volume 100H, Mean Corpuscular Hemoglobin 32.7H, Mean Corpuscular Hemoglobin Concent 32.6, Red Cell Distribution Width 13.6, Platelet Count 239, Mean Platelet Volume 8.1, Neutrophils (%) (Auto) 80.0H, Lymphocytes ( %) (Auto) 6.9L, Monocytes (%) (Auto) 9.5, Eosinophils (%) (Auto) 2.9, Basophils (%) (Auto) 0.6, Sodium Level 141, Potassium Level 2.9L, Chloride Level 98, Carbon Dioxide Level 30, Anion Gap 13, Blood Urea Nitrogen 22, Creatinine 2.4H, Estimat Glomerular Filtration Rate , Glucose Level 98, Uric Acid 5.5, Calcium Level 8.1L, Phosphorus Level 2.5, Magnesium Level 2.3, Total Bilirubin 0.4, Gamma Glutamyl Transpeptidase 12, Aspartate Amino Transf (AST/SGOT) 15, Alanine Aminotransferase (ALT/SGPT) 8, Alkaline Phosphatase 48, Total Creatine Kinase 15L, C-Reactive Protein, Quantitative 1.4H, Pro-B-Type Natriuretic Peptide 2017H , Total Protein 5.5L, Albumin 2.5L, Globulin 3.0, Albumin/Globulin Ratio 0.8L, Thyroid Stimulating Hormone (TSH) 68.050H, Random Vancomycin Level 25.8 Height (Feet): 5 Height (Inches): 9.00 Weight (Pounds): 170 General Appearance: alert EENT: TMs normal Neck: supple Cardiovascular: regular rhythm Respiratory/Chest: lungs clear Abdomen: soft Extremities: non-tender Edema: no edema noted Arm (L), no edema noted Arm (R), no edema noted Leg (L), no edema noted Leg (R), no edema noted Pedal (L), no edema noted Pedal (R), no edema noted Generalized Edema: mild edema Neurologic: alert Lymphatic: normal anterior cervical (L), normal anterior cervical (R), normal axillary (L), normal axillary (R), normal inguinal (L), normal inguinal (R), normal other, normal posterior cervical (L), normal posterior cervical (R), normal submandibular (L), normal submandibular (R), normal supraclavicular (L), normal supraclavicular (R) SUE ALCARAZ Nov 22, 2016 16:43
[2016-11-22 20:00] VITALS: BP 125/84
--- NOTE | 2016-11-22 21:26 | General Progress Note ---
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 given exam, xrays, and prior abd surgeries (less likely ileus) - Facial cellulitis - Anemia - s/p PEG - a fib - DM - HN - Renal failure Recommendations - Continue TF trial - continue Reglan and Dulcolax for motility - follow exam and labs - Renal f/u Subjective Allergies: Coded Allergies: AUBREY INHIBITORS (Verified Allergy, Unknown, ANGIOEDEMA, 09/17/12) Subjective tolerating TF no abd pain no vomiting Objective Last 24 Hour Vital Signs Date Time Temp Pulse Resp B/P Pulse Ox O2 Delivery O2 Flow Rate FiO2 11/22/16 20:00 98.9 70 19 125/84 100 Room Air 11/22/16 16:00 97.9 66 20 121/65 Room Air 11/22/16 11:28 98.1 63 20 117/65 99 Room Air 11/22/16 09:00 63 117/65 11/22/16 08:14 98.4 64 20 124/55 95 Room Air 11/22/16 04:17 98.6 66 19 126/71 94 Room Air 11/22/16 00:32 97.9 62 20 115/74 95 Room Air Intake and Output 11/21/16 11/22/16 19:00 07:00 Intake Total 885.0 ml 1050 ml Output Total 250 ml 1650 ml Balance 635.0 ml -600 ml IV Total 885.0 ml 1050 ml Output Urine Total 250 ml 1650 ml # Voids 3 1 # Bowel Movements 2 1 Laboratory Tests 11/22/16 04:30: White Blood Count 6.9, Red Blood Count 3.56L, Hemoglobin 11.6L, Hematocrit 35.6L , Mean Corpuscular Volume 100H, Mean Corpuscular Hemoglobin 32.7H, Mean Corpuscular Hemoglobin Concent 32.6, Red Cell Distribution Width 13.6, Platelet Count 239, Mean Platelet Volume 8.1, Neutrophils (%) (Auto) 80.0H, Lymphocytes ( %) (Auto) 6.9L, Monocytes (%) (Auto) 9.5, Eosinophils (%) (Auto) 2.9, Basophils (%) (Auto) 0.6, Sodium Level 141, Potassium Level 2.9L, Chloride Level 98, Carbon Dioxide Level 30, Anion Gap 13, Blood Urea Nitrogen 22, Creatinine 2.4H, Estimat Glomerular Filtration Rate , Glucose Level 98, Uric Acid 5.5, Calcium Level 8.1L, Phosphorus Level 2.5, Magnesium Level 2.3, Total Bilirubin 0.4, Gamma Glutamyl Transpeptidase 12, Aspartate Amino Transf (AST/SGOT) 15, Alanine Aminotransferase (ALT/SGPT) 8, Alkaline Phosphatase 48, Total Creatine Kinase 15L, C-Reactive Protein, Quantitative 1.4H, Pro-B-Type Natriuretic Peptide 2017H , Total Protein 5.5L, Albumin 2.5L, Globulin 3.0, Albumin/Globulin Ratio 0.8L, Thyroid Stimulating Hormone (TSH) 68.050H, Random Vancomycin Level 25.8 Height (Feet): 5 Height (Inches): 9.00 Weight (Pounds): 170 Objective debilitated WM (+) neck scar CTA RR abd softer and less distended today, (+) GT no edema WILLIS AMADO Nov 22, 2016 21:26
[2016-11-22] MEDS ORDERED: Sterile Water Irrig 1000ml IRRIG ONE (22:53)
[2016-11-22] MEDS ORDERED: NS 275ml ONE (22:53)
[2016-11-22] MEDS ORDERED: D5NS 1000ml IV ONE (22:53)
[2016-11-22] MEDS ORDERED: Tubing IV Secondary IV ONE (22:53)
--- NOTE | 2016-11-22 23:28 | Pulmonology Progress Note ---
Assessment/Plan Problems: (1) Respiratory insufficiency (2) Cellulitis (3) HTN (hypertension) (4) History of CVA (cerebrovascular accident) Assessment/Plan improving continue antibiotics biopsy results noted respiratory treatment titrate fio2 to sat of 92% Subjective ROS Limited/Unobtainable: No Respiratory: Reports: dyspnea at rest, dyspnea on exertion, pleuritic pain, productive cough, shortness of breath, sputum, wheezing Neurologic: Reports: confusion, weakness Allergies: Coded Allergies: AUBREY INHIBITORS (Verified Allergy, Unknown, ANGIOEDEMA, 09/17/12) Objective Last 24 Hour Vital Signs Date Time Temp Pulse Resp B/P Pulse Ox O2 Delivery O2 Flow Rate FiO2 11/22/16 22:12 70 125/84 11/22/16 20:00 98.9 70 19 125/84 100 Room Air 11/22/16 16:00 97.9 66 20 121/65 Room Air 11/22/16 11:28 98.1 63 20 117/65 99 Room Air 11/22/16 09:00 63 117/65 11/22/16 08:14 98.4 64 20 124/55 95 Room Air 11/22/16 04:17 98.6 66 19 126/71 94 Room Air 11/22/16 00:32 97.9 62 20 115/74 95 Room Air Intake and Output 11/21/16 11/22/16 19:00 07:00 Intake Total 885.0 ml 1050 ml Output Total 250 ml 1650 ml Balance 635.0 ml -600 ml IV Total 885.0 ml 1050 ml Output Urine Total 250 ml 1650 ml # Voids 3 1 # Bowel Movements 2 1 General Appearance: no acute distress HEENT: normocephalic, atraumatic, PERRL Respiratory/Chest: chest wall non-tender, decreased breath sounds, accessory muscle use, crackles/rales, rhonchi Cardiovascular: normal peripheral pulses, normal rate, regular rhythm, no JVD Abdomen: normal bowel sounds, soft, non tender, no organomegaly Genitourinary: normal external genitalia Extremities: no cyanosis Neurologic/Psychiatric: responsive, abnormal CN, motor weakness, disoriented, aphasia Laboratory Tests 11/22/16 04:30: White Blood Count 6.9, Red Blood Count 3.56L, Hemoglobin 11.6L, Hematocrit 35.6L , Mean Corpuscular Volume 100H, Mean Corpuscular Hemoglobin 32.7H, Mean Corpuscular Hemoglobin Concent 32.6, Red Cell Distribution Width 13.6, Platelet Count 239, Mean Platelet Volume 8.1, Neutrophils (%) (Auto) 80.0H, Lymphocytes ( %) (Auto) 6.9L, Monocytes (%) (Auto) 9.5, Eosinophils (%) (Auto) 2.9, Basophils (%) (Auto) 0.6, Sodium Level 141, Potassium Level 2.9L, Chloride Level 98, Carbon Dioxide Level 30, Anion Gap 13, Blood Urea Nitrogen 22, Creatinine 2.4H, Estimat Glomerular Filtration Rate , Glucose Level 98, Uric Acid 5.5, Calcium Level 8.1L, Phosphorus Level 2.5, Magnesium Level 2.3, Total Bilirubin 0.4, Gamma Glutamyl Transpeptidase 12, Aspartate Amino Transf (AST/SGOT) 15, Alanine Aminotransferase (ALT/SGPT) 8, Alkaline Phosphatase 48, Total Creatine Kinase 15L, C-Reactive Protein, Quantitative 1.4H, Pro-B-Type Natriuretic Peptide 2017H , Total Protein 5.5L, Albumin 2.5L, Globulin 3.0, Albumin/Globulin Ratio 0.8L, Thyroid Stimulating Hormone (TSH) 68.050H, Random Vancomycin Level 25.8 Current Medications Medications (Trade) Dose Ordered Sig/Yousuf Route PRN Reason Start Time Stop Time Status Last Admin Dose Admin Acetaminophen (Tylenol) 650 mg Q4H PRN ORAL fever 11/12/16 03:34 12/12/16 03:33 Amiodarone HCl (Cordarone) 100 mg DAILY GT 11/12/16 09:00 12/12/16 08:59 11/22/16 10:53 Apixaban (Eliquis) 2.5 mg Q12HR ORAL 11/12/16 09:00 12/12/16 08:59 11/22/16 22:12 Bisacodyl (Dulcolax) 10 mg TWICE A DAY RECTAL 11/19/16 10:00 12/19/16 09:59 11/22/16 18:21 Bupropion HCl (Wellbutrin) 75 mg Q12HR GT 11/18/16 11:06 12/12/16 08:59 11/22/16 22:12 Dextrose (Dextrose 50%) STAT PRN IV Hypoglycemia 11/12/16 03:35 12/12/16 03:34 Dextrose/Sodium Chloride (D5ns) 1,000 ml @ 100 mls/hr Q10H IV 11/21/16 16:30 12/21/16 16:29 11/22/16 13:50 Finasteride (Proscar) 5 mg DAILY GT 11/12/16 09:00 12/12/16 08:59 11/22/16 10:54 Insulin Aspart (NovoLOG) Q6HR SUBQ 11/14/16 18:00 12/14/16 17:59 11/22/16 18:20 Levothyroxine Sodium (Synthroid) 100 mcg DAILY IV 11/22/16 12:00 12/22/16 11:59 11/22/16 13:51 Metoclopramide HCl 5 mg 5 mg EVERY 8 HOURS IVP 11/21/16 14:00 12/21/16 13:59 11/22/16 22:12 Metoclopramide HCl (Reglan) 5 mg Q8H PRN IVP Nausea & Vomiting 11/21/16 16:37 12/16/16 14:44 Metoprolol Tartrate (Lopressor) 25 mg Q12H GT 11/17/16 21:00 12/17/16 20:59 11/22/16 22:12 Ondansetron HCl (Zofran) 4 mg Q8H PRN IVP Nausea & Vomiting 11/19/16 21:15 12/19/16 21:14 Piperacillin Sod/ Tazobactam Sod 3.375 gm/Dextrose 110 ml @ 27.5 mls/hr Q12HR@0200,1400 IVPB 11/22/16 02:00 11/29/16 01:59 11/22/16 15:16 Polyethylene Glycol (Miralax) 17 gm HSPRN PRN GT Constipation 11/12/16 03:39 12/12/16 03:38 11/15/16 17:45 Valproic Acid (Depakene) 250 mg DAILY GT 11/12/16 09:00 12/12/16 08:59 11/22/16 10:54 Zolpidem Tartrate (Ambien) 5 mg HSPRN PRN GT Insomnia 11/14/16 17:24 12/12/16 03:33 MARY SELF Nov 22, 2016 23:28
[2016-11-23 00:21] VITALS: BP 125/73
[2016-11-23] MEDS: Zolpidem 5mg tab GT PRN (00:49)
[2016-11-23] MEDS ORDERED: Zosyn 3.375gm inj ONE (02:20)
[2016-11-23] MEDS: Piperacillin/Tazobactam 3.375 GM in D5W 110 ML IVPB SCH ×3 (02:26→21:01)
[2016-11-23 04:13] VITALS: BP 150/81
[2016-11-23] MEDS: NovoLOG Insulin Flexpen SUBQ SCH ×4 (06:00→17:27)
[2016-11-23] MEDS: Metoclopramide 10mg/2ml Inj IVP SCH ×3 (06:01→21:01)
[2016-11-23] MEDS: D5NS 1,000 ML IV SCH ×2 (06:02→18:24)
--- NOTE | 2016-11-23 06:32 | General Progress Note ---
Assessment/Plan Problem List: (1) Hypothyroidism ICD Codes: E03.9 - Hypothyroidism, unspecified SNOMED: 04955850 (2) Swelling of left side of face ICD Codes: R22.0 - Localized swelling, mass and lump, head SNOMED: 725532533 (3) Cellulitis and abscess of face ICD Codes: L03.211 - Cellulitis of face; L02.01 - Cutaneous abscess of face SNOMED: 687549448 (4) PEG (percutaneous endoscopic gastrostomy) adjustment/replacement/removal ICD Codes: Z43.1 - Encounter for attention to gastrostomy SNOMED: 797857212 (5) Dysphagia ICD Codes: R13.10 - Dysphagia SNOMED: 21931283 (6) History of respiratory failure ICD Codes: Z87.09 - History of respiratory failure SNOMED: 006170232 (7) History of CVA (cerebrovascular accident) ICD Codes: Z86.73 - History of CVA (cerebrovascular accident) SNOMED: 299426914 (8) Thyroid mass of unclear etiology ICD Codes: E07.89 - Other specified disorders of thyroid SNOMED: 631382760 (9) Diabetes ICD Codes: E11.9 - Diabetes SNOMED: 80814768 Assessment/Plan thyroid mass s/p FNA - benign TSH elevated - continue Levothyroxine IV for 2 more days glucose values are well controlled continue blood glucose monitoring and Novolog coverage Subjective ROS Limited/Unobtainable: Yes Allergies: Coded Allergies: AUBREY INHIBITORS (Verified Allergy, Unknown, ANGIOEDEMA, 09/17/12) Subjective lying in bed comfortably TF is tolerated Objective Last 24 Hour Vital Signs Date Time Temp Pulse Resp B/P Pulse Ox O2 Delivery O2 Flow Rate FiO2 11/23/16 04:13 97.7 61 19 150/81 96 Room Air 11/23/16 00:21 98.8 64 20 125/73 95 Room Air 11/22/16 22:12 70 125/84 11/22/16 20:00 98.9 70 19 125/84 100 Room Air 11/22/16 16:00 97.9 66 20 121/65 Room Air 11/22/16 11:28 98.1 63 20 117/65 99 Room Air 11/22/16 09:00 63 117/65 11/22/16 08:14 98.4 64 20 124/55 95 Room Air Intake and Output 11/22/16 11/23/16 18:59 06:59 Intake Total 1162.5 ml 1620.0 ml Output Total 1250 ml Balance 1162.5 ml 370.0 ml Intake Free Water 150 ml 150 ml IV Total 682.5 ml 1110.0 ml Tube Feeding 330 ml 360 ml Output Urine Total 1250 ml # Voids 3 5 # Bowel Movements 1 1 Laboratory Tests 11/23/16 05:55: White Blood Count [Pending], Red Blood Count [Pending], Hemoglobin [Pending], Hematocrit [Pending], Mean Corpuscular Volume [Pending], Mean Corpuscular Hemoglobin [Pending], Mean Corpuscular Hemoglobin Concent [Pending], Red Cell Distribution Width [Pending], Platelet Count [Pending], Mean Platelet Volume [ Pending], Neutrophils (%) (Auto) [Pending], Lymphocytes (%) (Auto) [Pending], Monocytes (%) (Auto) [Pending], Eosinophils (%) (Auto) [Pending], Basophils (%) (Auto) [Pending], Sodium Level [Pending], Potassium Level [Pending], Chloride Level [Pending], Carbon Dioxide Level [Pending], Blood Urea Nitrogen [Pending], Creatinine [Pending], Estimat Glomerular Filtration Rate [Pending], Glucose Level [Pending], Uric Acid [Pending], Calcium Level [Pending], Phosphorus Level [Pending], Magnesium Level [Pending], Total Bilirubin [Pending], Aspartate Amino Transf (AST/SGOT) [Pending], Alanine Aminotransferase (ALT/SGPT) [Pending] , Alkaline Phosphatase [Pending], C-Reactive Protein, Quantitative [Pending], Pro-B-Type Natriuretic Peptide [Pending], Total Protein [Pending], Albumin [ Pending], Globulin [Pending], Random Vancomycin Level [Pending] Height (Feet): 5 Height (Inches): 9.00 Weight (Pounds): 170 General Appearance: no apparent distress EENT: pale conjunctivae Neck: normal alignment Cardiovascular: normal rate Respiratory/Chest: lungs clear Abdomen: normal bowel sounds, other - PEG Pelvis: normal external exam Edema: no edema noted Arm (L), no edema noted Arm (R), no edema noted Leg (L), no edema noted Leg (R), no edema noted Pedal (L), no edema noted Pedal (R), no edema noted Generalized Objective Current Medications Medications (Trade) Dose Ordered Sig/Yousuf Route PRN Reason Start Time Stop Time Status Last Admin Dose Admin Acetaminophen (Tylenol) 650 mg Q4H PRN ORAL fever 11/12/16 03:34 12/12/16 03:33 Amiodarone HCl (Cordarone) 100 mg DAILY GT 11/12/16 09:00 12/12/16 08:59 11/22/16 10:53 Apixaban (Eliquis) 2.5 mg Q12HR ORAL 11/12/16 09:00 12/12/16 08:59 11/22/16 22:12 Bisacodyl (Dulcolax) 10 mg TWICE A DAY RECTAL 11/19/16 10:00 12/19/16 09:59 11/22/16 18:21 Bupropion HCl (Wellbutrin) 75 mg Q12HR GT 11/18/16 11:06 12/12/16 08:59 11/22/16 22:12 Dextrose (Dextrose 50%) STAT PRN IV Hypoglycemia 11/12/16 03:35 12/12/16 03:34 Dextrose/Sodium Chloride (D5ns) 1,000 ml @ 100 mls/hr Q10H IV 11/21/16 16:30 12/21/16 16:29 11/23/16 06:02 Finasteride (Proscar) 5 mg DAILY GT 11/12/16 09:00 12/12/16 08:59 11/22/16 10:54 Insulin Aspart (NovoLOG) Q6HR SUBQ 11/14/16 18:00 12/14/16 17:59 11/22/16 18:20 Levothyroxine Sodium (Synthroid) 100 mcg DAILY IV 11/22/16 12:00 12/22/16 11:59 11/22/16 13:51 Metoclopramide HCl 5 mg 5 mg EVERY 8 HOURS IVP 11/21/16 14:00 12/21/16 13:59 11/23/16 06:01 Metoclopramide HCl (Reglan) 5 mg Q8H PRN IVP Nausea & Vomiting 11/21/16 16:37 12/16/16 14:44 Metoprolol Tartrate (Lopressor) 25 mg Q12H GT 11/17/16 21:00 12/17/16 20:59 11/22/16 22:12 Ondansetron HCl (Zofran) 4 mg Q8H PRN IVP Nausea & Vomiting 11/19/16 21:15 12/19/16 21:14 Piperacillin Sod/ Tazobactam Sod 3.375 gm/Dextrose 110 ml @ 27.5 mls/hr Q12HR@0200,1400 IVPB 11/22/16 02:00 11/29/16 01:59 11/23/16 02:26 Polyethylene Glycol (Miralax) 17 gm HSPRN PRN GT Constipation 11/12/16 03:39 12/12/16 03:38 11/15/16 17:45 Valproic Acid (Depakene) 250 mg DAILY GT 11/12/16 09:00 12/12/16 08:59 11/22/16 10:54 Zolpidem Tartrate (Ambien) 5 mg HSPRN PRN GT Insomnia 11/14/16 17:24 12/12/16 03:33 11/23/16 00:49 Item Value Date Time Bedside Blood Glucose 86 mg/dl 11/23/16 0600 Bedside Blood Glucose 103 mg/dl 11/23/16 0000 Bedside Blood Glucose 126 mg/dl H 11/22/16 1820 Bedside Blood Glucose 127 mg/dl H 11/22/16 1343 Bedside Blood Glucose 71 mg/dl 11/22/16 0600 Bedside Blood Glucose 125 mg/dl H 11/22/16 0027 BETTY GERMAIN Nov 23, 2016 06:32
[2016-11-23 06:38] LABS: BASOPHILS % (AUTO) 0.6 % (0.0-2.0); EOSINOPHILS % (AUTO) 3.5 % (0.0-3.0); LYMPHOCYTES % (AUTO) 9.7 % (20.0-45.0); MEAN CORPUSCULAR HEMOGLOBIN 32.9 PG (27.0-31.0); MEAN CORPUSCULAR HGB CONC 32.7 G/DL (32.0-36.0); MEAN CORPUSCULAR VOLUME 101 FL (80-99); MEAN PLATELET VOLUME 8.2 FL (6.5-10.1); MONOCYTES % (AUTO) 8.9 % (1.0-10.0); NEUTROPHILS % (AUTO) 77.4 % (45.0-75.0); PLATELET COUNT 252 K/UL (150-450); RED BLOOD COUNT 3.93 M/UL (4.70-6.10); RED CELL DISTRIBUTION WIDTH 14.1 % (11.6-14.8); WHITE BLOOD COUNT 6.9 K/UL (4.8-10.8)
[2016-11-23 06:53] LABS: ALANINE AMINOTRANSFERASE 7 U/L (3-41); ALBUMIN/GLOBULIN RATIO 0.8 (1.0-2.7); ANION GAP 11 (5-15); ASPARTATE AMINO TRANSFERASE 15 U/L (5-40); CALCIUM 8.2 mg/dL (8.6-10.2); CARBON DIOXIDE 29 mEQ/L (20-30); CHLORIDE 102 mEQ/L (98-107); CREATININE 2.1 mg/dL (0.7-1.2); CRP QUANT 1.4 mg/dL (< 0.5); HEMOLYSIS 3; MAGNESIUM 2.1 mg/dL (1.7-2.5); PHOSPHORUS 2.5 mg/dL (2.5-4.8); POTASSIUM 3.6 mEQ/L (3.4-4.9); SODIUM 142 mEQ/L (135-145); URIC ACID 4.4 mg/dL (3.0-7.5)
[2016-11-23 08:00] VITALS: BP 127/70
[2016-11-23] MEDS: Amiodarone 200mg tab GT SCH (08:35)
[2016-11-23] MEDS: Valproic Acid 250mg/5ml Liquid GT SCH (08:35)
[2016-11-23] MEDS: BuPROPion 75mg Tab GT SCH ×2 (08:35→21:01)
[2016-11-23] MEDS: Metoprolol Tartrate 12.5mg TAB GT SCH (08:36)
[2016-11-23] MEDS: Eliquis 2.5mg tablet ORAL SCH ×2 (08:36→21:01)
--- NOTE | 2016-11-23 10:19 | General Surgery Progress Note ---
General Surgery-Progress Note Subjective Symptoms: BM Objective Last 24 Hour Vital Signs Date Time Temp Pulse Resp B/P Pulse Ox O2 Delivery O2 Flow Rate FiO2 11/23/16 08:36 60 127/70 11/23/16 08:00 97.2 60 20 127/70 93 Room Air 11/23/16 04:13 97.7 61 19 150/81 96 Room Air 11/23/16 00:21 98.8 64 20 125/73 95 Room Air 11/22/16 22:12 70 125/84 11/22/16 20:00 98.9 70 19 125/84 100 Room Air 11/22/16 16:00 97.9 66 20 121/65 Room Air 11/22/16 11:28 98.1 63 20 117/65 99 Room Air I&O Intake and Output 11/22/16 11/23/16 19:00 07:00 Intake Total 1192.5 ml 1647.5 ml Output Total 1250 ml Balance 1192.5 ml 397.5 ml Intake Free Water 150 ml 150 ml IV Total 682.5 ml 1137.5 ml Tube Feeding 360 ml 360 ml Output Urine Total 1250 ml # Voids 3 5 # Bowel Movements 1 1 Respiratory: clear Abdomen: soft, flat, non-tender, present bowel sounds Extremities: no tenderness Laboratory Tests Test 11/23/16 05:55 White Blood Count 6.9 K/UL (4.8-10.8) Red Blood Count 3.93 M/UL (4.70-6.10) L Hemoglobin 12.9 G/DL (14.2-18.0) L Hematocrit 39.5 % (42.0-52.0) L Mean Corpuscular Volume 101 FL (80-99) H Mean Corpuscular Hemoglobin 32.9 PG (27.0-31.0) H Mean Corpuscular Hemoglobin Concent 32.7 G/DL (32.0-36.0) Red Cell Distribution Width 14.1 % (11.6-14.8) Platelet Count 252 K/UL (150-450) Mean Platelet Volume 8.2 FL (6.5-10.1) Neutrophils (%) (Auto) 77.4 % (45.0-75.0) H Lymphocytes (%) (Auto) 9.7 % (20.0-45.0) L Monocytes (%) (Auto) 8.9 % (1.0-10.0) Eosinophils (%) (Auto) 3.5 % (0.0-3.0) H Basophils (%) (Auto) 0.6 % (0.0-2.0) Sodium Level 142 mEQ/L (135-145) Potassium Level 3.6 mEQ/L (3.4-4.9) Chloride Level 102 mEQ/L (98-107) Carbon Dioxide Level 29 mEQ/L (20-30) Anion Gap 11 (5-15) Blood Urea Nitrogen 24 mg/dL (7-23) H Creatinine 2.1 mg/dL (0.7-1.2) H Estimat Glomerular Filtration Rate mL/min (>60) Glucose Level 86 mg/dL (74-106) Uric Acid 4.4 mg/dL (3.0-7.5) Calcium Level 8.2 mg/dL (8.6-10.2) L Phosphorus Level 2.5 mg/dL (2.5-4.8) Magnesium Level 2.1 mg/dL (1.7-2.5) Total Bilirubin 0.2 mg/dL (0.0-1.2) Aspartate Amino Transf (AST/SGOT) 15 U/L (5-40) Alanine Aminotransferase (ALT/SGPT) 7 U/L (3-41) Alkaline Phosphatase 64 U/L (40-129) C-Reactive Protein, Quantitative 1.4 mg/dL (< 0.5) H Pro-B-Type Natriuretic Peptide 3249 pg/mL (0-450) H Total Protein 6.0 g/dL (6.6-8.7) L Albumin 2.7 g/dL (3.5-5.2) L Globulin 3.3 g/dL Albumin/Globulin Ratio 0.8 (1.0-2.7) L Random Vancomycin Level 20.5 ug/mL Assessment Additional Comments Ileus Plan Additional Comments Continue as before AURELIA ROGERS Nov 23, 2016 10:19
[2016-11-23 12:00] VITALS: BP 141/78
--- NOTE | 2016-11-23 13:28 | General Progress Note ---
Assessment/Plan Assessment/Plan ASSESSMENT: 1. Macrocytosis potentially 2/2 liver disease, will eval with US 2. Anemia secondary to chronic disease. 3. Right lower lobe thyroid nodule 19 x 11mm, s/p fna - benign 4. Diabetes mellitus. 5. Atrial fibrillation. 6. Cellulitis of the face. 7. Diabetes mellitus. 8. Hypertension. 9. Psychiatric history. 10. Afib on eliquis RECOMMENDATIONS: 1. Monitor counts. 2. Transfuse to hgb >7 3. US abd pending 4. Followup on ID, endo, Pulmonary recs, and ENT recs 5. Reviewed pathology of thyroid - benign 6. DVT ppx with eliquis. 7. GI ppx as needed. 8. Pain control. 9. Abx as needed. 10. staff Thank you, Jax Alcaraz MD Subjective Constitutional: Reports: no symptoms HEENT: Reports: no symptoms Cardiovascular: Reports: no symptoms Respiratory: Reports: no symptoms Gastrointestinal/Abdominal: Reports: poor appetite Genitourinary: Reports: no symptoms Neurologic/Psychiatric: Reports: no symptoms Endocrine: Reports: no symptoms Hematologic/Lymphatic: Reports: anemia Allergies: Coded Allergies: AUBREY INHIBITORS (Verified Allergy, Unknown, ANGIOEDEMA, 09/17/12) Subjective stable, without bleeding, no night sweats, face has improved Objective Last 24 Hour Vital Signs Date Time Temp Pulse Resp B/P Pulse Ox O2 Delivery O2 Flow Rate FiO2 11/23/16 08:36 60 127/70 11/23/16 08:00 97.2 60 20 127/70 93 Room Air 11/23/16 04:13 97.7 61 19 150/81 96 Room Air 11/23/16 00:21 98.8 64 20 125/73 95 Room Air 11/22/16 22:12 70 125/84 11/22/16 20:00 98.9 70 19 125/84 100 Room Air 11/22/16 16:00 97.9 66 20 121/65 Room Air Intake and Output 11/22/16 11/23/16 19:00 07:00 Intake Total 1192.5 ml 1647.5 ml Output Total 1250 ml Balance 1192.5 ml 397.5 ml Intake Free Water 150 ml 150 ml IV Total 682.5 ml 1137.5 ml Tube Feeding 360 ml 360 ml Output Urine Total 1250 ml # Voids 3 5 # Bowel Movements 1 1 Laboratory Tests 11/23/16 05:55: White Blood Count 6.9, Red Blood Count 3.93L, Hemoglobin 12.9L, Hematocrit 39.5L , Mean Corpuscular Volume 101H, Mean Corpuscular Hemoglobin 32.9H, Mean Corpuscular Hemoglobin Concent 32.7, Red Cell Distribution Width 14.1, Platelet Count 252, Mean Platelet Volume 8.2, Neutrophils (%) (Auto) 77.4H, Lymphocytes ( %) (Auto) 9.7L, Monocytes (%) (Auto) 8.9, Eosinophils (%) (Auto) 3.5H, Basophils (%) (Auto) 0.6, Sodium Level 142, Potassium Level 3.6, Chloride Level 102, Carbon Dioxide Level 29, Anion Gap 11, Blood Urea Nitrogen 24H, Creatinine 2.1H, Estimat Glomerular Filtration Rate , Glucose Level 86, Uric Acid 4.4, Calcium Level 8.2L, Phosphorus Level 2.5, Magnesium Level 2.1, Total Bilirubin 0.2, Aspartate Amino Transf (AST/SGOT) 15, Alanine Aminotransferase (ALT/SGPT) 7 , Alkaline Phosphatase 64, C-Reactive Protein, Quantitative 1.4H, Pro-B-Type Natriuretic Peptide 3249H, Total Protein 6.0L, Albumin 2.7L, Globulin 3.3, Albumin/Globulin Ratio 0.8L, Random Vancomycin Level 20.5 Height (Feet): 5 Height (Inches): 9.00 Weight (Pounds): 170 General Appearance: no apparent distress EENT: TMs normal Neck: supple Cardiovascular: regular rhythm Respiratory/Chest: normal breath sounds Abdomen: non tender Extremities: non-tender Edema: 1+ Leg (L), 1+ Leg (R) Edema: mild edema Neurologic: alert Skin: normal pigmentation Jax Alcaraz Nov 23, 2016 13:28
--- NOTE | 2016-11-23 14:05 | General Progress Note ---
Assessment/Plan Status: stable Status Narrative Cr gradually lowering- Vanco level down to 20 Assessment/Plan Cr 0.9 in 11/15 went up to 2.7 in 11/21 Acute renal failure due to Vancomycin- Vanco trough on 11/17 over 54 , on 11/20 over 38 Hypothyroidism Plan: continue to Hold Vanco Monitor levels- adjust Zosyn accordinly Monitor renal parameters- Keep BP over 100 syst DC Garnett start cardura in [place] of flomax Subjective ROS Limited/Unobtainable: No Constitutional: Reports: malaise, weakness Allergies: Coded Allergies: AUBREY INHIBITORS (Verified Allergy, Unknown, ANGIOEDEMA, 09/17/12) Objective Last 24 Hour Vital Signs Date Time Temp Pulse Resp B/P Pulse Ox O2 Delivery O2 Flow Rate FiO2 11/23/16 08:36 60 127/70 11/23/16 08:00 97.2 60 20 127/70 93 Room Air 11/23/16 04:13 97.7 61 19 150/81 96 Room Air 11/23/16 00:21 98.8 64 20 125/73 95 Room Air 11/22/16 22:12 70 125/84 11/22/16 20:00 98.9 70 19 125/84 100 Room Air 11/22/16 16:00 97.9 66 20 121/65 Room Air Intake and Output 11/22/16 11/23/16 19:00 07:00 Intake Total 1192.5 ml 1647.5 ml Output Total 1250 ml Balance 1192.5 ml 397.5 ml Intake Free Water 150 ml 150 ml IV Total 682.5 ml 1137.5 ml Tube Feeding 360 ml 360 ml Output Urine Total 1250 ml # Voids 3 5 # Bowel Movements 1 1 Laboratory Tests 11/23/16 05:55: White Blood Count 6.9, Red Blood Count 3.93L, Hemoglobin 12.9L, Hematocrit 39.5L , Mean Corpuscular Volume 101H, Mean Corpuscular Hemoglobin 32.9H, Mean Corpuscular Hemoglobin Concent 32.7, Red Cell Distribution Width 14.1, Platelet Count 252, Mean Platelet Volume 8.2, Neutrophils (%) (Auto) 77.4H, Lymphocytes ( %) (Auto) 9.7L, Monocytes (%) (Auto) 8.9, Eosinophils (%) (Auto) 3.5H, Basophils (%) (Auto) 0.6, Sodium Level 142, Potassium Level 3.6, Chloride Level 102, Carbon Dioxide Level 29, Anion Gap 11, Blood Urea Nitrogen 24H, Creatinine 2.1H, Estimat Glomerular Filtration Rate , Glucose Level 86, Uric Acid 4.4, Calcium Level 8.2L, Phosphorus Level 2.5, Magnesium Level 2.1, Total Bilirubin 0.2, Aspartate Amino Transf (AST/SGOT) 15, Alanine Aminotransferase (ALT/SGPT) 7 , Alkaline Phosphatase 64, C-Reactive Protein, Quantitative 1.4H, Pro-B-Type Natriuretic Peptide 3249H, Total Protein 6.0L, Albumin 2.7L, Globulin 3.3, Albumin/Globulin Ratio 0.8L, Random Vancomycin Level 20.5 Height (Feet): 5 Height (Inches): 9.00 Weight (Pounds): 170 General Appearance: no apparent distress Objective other physical exam not changed DARIN QUESADA Nov 23, 2016 14:05
[2016-11-23 16:00] VITALS: BP 167/82
--- NOTE | 2016-11-23 16:24 | Pulmonology Progress Note ---
Assessment/Plan Problems: (1) Respiratory insufficiency (2) Cellulitis (3) HTN (hypertension) (4) History of CVA (cerebrovascular accident) Assessment/Plan improving continue antibiotics biopsy results noted respiratory treatment titrate fio2 to sat of 92% Subjective ROS Limited/Unobtainable: No Respiratory: Reports: dyspnea at rest, productive cough, shortness of breath, sputum Allergies: Coded Allergies: AUBREY INHIBITORS (Verified Allergy, Unknown, ANGIOEDEMA, 09/17/12) Objective Last 24 Hour Vital Signs Date Time Temp Pulse Resp B/P Pulse Ox O2 Delivery O2 Flow Rate FiO2 11/23/16 12:00 96.1 62 20 141/78 96 Room Air 11/23/16 08:36 60 127/70 11/23/16 08:00 97.2 60 20 127/70 93 Room Air 11/23/16 04:13 97.7 61 19 150/81 96 Room Air 11/23/16 00:21 98.8 64 20 125/73 95 Room Air 11/22/16 22:12 70 125/84 11/22/16 20:00 98.9 70 19 125/84 100 Room Air Intake and Output 11/22/16 11/23/16 19:00 07:00 Intake Total 1192.5 ml 1647.5 ml Output Total 1250 ml Balance 1192.5 ml 397.5 ml Intake Free Water 150 ml 150 ml IV Total 682.5 ml 1137.5 ml Tube Feeding 360 ml 360 ml Output Urine Total 1250 ml # Voids 3 5 # Bowel Movements 1 1 General Appearance: no acute distress HEENT: normocephalic, atraumatic, PERRL Respiratory/Chest: chest wall non-tender, decreased breath sounds, accessory muscle use, rhonchi Cardiovascular: normal peripheral pulses, normal rate, regular rhythm, no JVD Abdomen: normal bowel sounds, soft, non tender, no organomegaly Genitourinary: normal external genitalia Extremities: no cyanosis Skin: no rash Neurologic/Psychiatric: die drawing checker II-XII grossly normal, responsive, disoriented Laboratory Tests 11/23/16 05:55: White Blood Count 6.9, Red Blood Count 3.93L, Hemoglobin 12.9L, Hematocrit 39.5L , Mean Corpuscular Volume 101H, Mean Corpuscular Hemoglobin 32.9H, Mean Corpuscular Hemoglobin Concent 32.7, Red Cell Distribution Width 14.1, Platelet Count 252, Mean Platelet Volume 8.2, Neutrophils (%) (Auto) 77.4H, Lymphocytes ( %) (Auto) 9.7L, Monocytes (%) (Auto) 8.9, Eosinophils (%) (Auto) 3.5H, Basophils (%) (Auto) 0.6, Sodium Level 142, Potassium Level 3.6, Chloride Level 102, Carbon Dioxide Level 29, Anion Gap 11, Blood Urea Nitrogen 24H, Creatinine 2.1H, Estimat Glomerular Filtration Rate , Glucose Level 86, Uric Acid 4.4, Calcium Level 8.2L, Phosphorus Level 2.5, Magnesium Level 2.1, Total Bilirubin 0.2, Aspartate Amino Transf (AST/SGOT) 15, Alanine Aminotransferase (ALT/SGPT) 7 , Alkaline Phosphatase 64, C-Reactive Protein, Quantitative 1.4H, Pro-B-Type Natriuretic Peptide 3249H, Total Protein 6.0L, Albumin 2.7L, Globulin 3.3, Albumin/Globulin Ratio 0.8L, Random Vancomycin Level 20.5 Current Medications Medications (Trade) Dose Ordered Sig/Yousuf Route PRN Reason Start Time Stop Time Status Last Admin Dose Admin Acetaminophen (Tylenol) 650 mg Q4H PRN ORAL fever 11/12/16 03:34 12/12/16 03:33 Amiodarone HCl (Cordarone) 100 mg DAILY GT 11/12/16 09:00 12/12/16 08:59 11/23/16 08:35 Apixaban (Eliquis) 2.5 mg Q12HR ORAL 11/12/16 09:00 12/12/16 08:59 11/23/16 08:36 Bisacodyl (Dulcolax) 10 mg TWICE A DAY RECTAL 11/19/16 10:00 12/19/16 09:59 11/22/16 18:21 Bupropion HCl (Wellbutrin) 75 mg Q12HR GT 11/18/16 11:06 12/12/16 08:59 11/23/16 08:35 Dextrose (Dextrose 50%) STAT PRN IV Hypoglycemia 11/12/16 03:35 12/12/16 03:34 Dextrose/Sodium Chloride (D5ns) 1,000 ml @ 100 mls/hr Q10H IV 11/21/16 16:30 12/21/16 16:29 11/23/16 06:02 Doxazosin Mesylate (Cardura) 1 mg BID GT 11/23/16 18:00 12/23/16 17:59 Finasteride (Proscar) 5 mg DAILY GT 11/12/16 09:00 12/12/16 08:59 11/23/16 08:36 Insulin Aspart (NovoLOG) Q6HR SUBQ 11/14/16 18:00 12/14/16 17:59 11/22/16 18:20 Levothyroxine Sodium (Synthroid) 100 mcg DAILY IV 11/22/16 12:00 12/22/16 11:59 11/23/16 11:30 Metoclopramide HCl 5 mg 5 mg EVERY 8 HOURS IVP 11/21/16 14:00 12/21/16 13:59 11/23/16 14:23 Metoclopramide HCl (Reglan) 5 mg Q8H PRN IVP Nausea & Vomiting 11/21/16 16:37 12/16/16 14:44 Metoprolol Tartrate (Lopressor) 25 mg Q12H GT 11/17/16 21:00 12/17/16 20:59 11/23/16 08:36 Ondansetron HCl (Zofran) 4 mg Q8H PRN IVP Nausea & Vomiting 11/19/16 21:15 12/19/16 21:14 Piperacillin Sod/ Tazobactam Sod 3.375 gm/Dextrose 110 ml @ 27.5 mls/hr Q12HR@0200,1400 IVPB 11/22/16 02:00 11/29/16 01:59 11/23/16 14:24 Polyethylene Glycol (Miralax) 17 gm HSPRN PRN GT Constipation 11/12/16 03:39 12/12/16 03:38 11/15/16 17:45 Valproic Acid (Depakene) 250 mg DAILY GT 11/12/16 09:00 12/12/16 08:59 11/23/16 08:35 Zolpidem Tartrate (Ambien) 5 mg HSPRN PRN GT Insomnia 11/14/16 17:24 12/12/16 03:33 11/23/16 00:49 MARY SELF Nov 23, 2016 16:24
[2016-11-23] MEDS ORDERED: 1/2 NS 1000ml IV ONE (16:57)
[2016-11-23] MEDS ORDERED: Sterile Water Irrig 1000ml IRRIG ONE (16:57)
[2016-11-23] MEDS ORDERED: D5NS 1000ml IV ONE (16:57)
--- NOTE | 2016-11-23 18:18 | General Progress Note ---
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 given exam, xrays, and prior abd surgeries (less likely ileus) - Facial cellulitis - Anemia - s/p PEG - a fib - DM - HN - Renal failure Recommendations - Continue TF trial - continue Reglan and Dulcolax for motility - d/c Reglan after 2 weeks to avoid assisted side effects - follow exam and labs - Renal f/u Subjective Allergies: Coded Allergies: AUBREY INHIBITORS (Verified Allergy, Unknown, ANGIOEDEMA, 09/17/12) Subjective tolerating TF no abd pain no vomiting Objective Last 24 Hour Vital Signs Date Time Temp Pulse Resp B/P Pulse Ox O2 Delivery O2 Flow Rate FiO2 11/23/16 12:00 96.1 62 20 141/78 96 Room Air 11/23/16 08:36 60 127/70 11/23/16 08:00 97.2 60 20 127/70 93 Room Air 11/23/16 04:13 97.7 61 19 150/81 96 Room Air 11/23/16 00:21 98.8 64 20 125/73 95 Room Air 11/22/16 22:12 70 125/84 11/22/16 20:00 98.9 70 19 125/84 100 Room Air Intake and Output 11/22/16 11/23/16 19:00 07:00 Intake Total 1192.5 ml 1647.5 ml Output Total 1250 ml Balance 1192.5 ml 397.5 ml Intake Free Water 150 ml 150 ml IV Total 682.5 ml 1137.5 ml Tube Feeding 360 ml 360 ml Output Urine Total 1250 ml # Voids 3 5 # Bowel Movements 1 1 Laboratory Tests 11/23/16 05:55: White Blood Count 6.9, Red Blood Count 3.93L, Hemoglobin 12.9L, Hematocrit 39.5L , Mean Corpuscular Volume 101H, Mean Corpuscular Hemoglobin 32.9H, Mean Corpuscular Hemoglobin Concent 32.7, Red Cell Distribution Width 14.1, Platelet Count 252, Mean Platelet Volume 8.2, Neutrophils (%) (Auto) 77.4H, Lymphocytes ( %) (Auto) 9.7L, Monocytes (%) (Auto) 8.9, Eosinophils (%) (Auto) 3.5H, Basophils (%) (Auto) 0.6, Sodium Level 142, Potassium Level 3.6, Chloride Level 102, Carbon Dioxide Level 29, Anion Gap 11, Blood Urea Nitrogen 24H, Creatinine 2.1H, Estimat Glomerular Filtration Rate , Glucose Level 86, Uric Acid 4.4, Calcium Level 8.2L, Phosphorus Level 2.5, Magnesium Level 2.1, Total Bilirubin 0.2, Aspartate Amino Transf (AST/SGOT) 15, Alanine Aminotransferase (ALT/SGPT) 7 , Alkaline Phosphatase 64, C-Reactive Protein, Quantitative 1.4H, Pro-B-Type Natriuretic Peptide 3249H, Total Protein 6.0L, Albumin 2.7L, Globulin 3.3, Albumin/Globulin Ratio 0.8L, Random Vancomycin Level 20.5 Height (Feet): 5 Height (Inches): 9.00 Weight (Pounds): 170 Objective debilitated WM (+) neck scar CTA RR abd softer and less distended today, (+) GT no edema WILLIS AMADO Nov 23, 2016 18:18
[2016-11-23] MEDS: Doxazosin 1mg Tab GT SCH (18:24)
[2016-11-23 20:00] VITALS: BP 116/69
--- NOTE | 2016-11-23 20:29 | Consultation ---
DATE OF CONSULTATION: 11/23/2016 UROLOGY CONSULTATION ATTENDING/CONSULTING PHYSICIAN: Laina Pereira M.D. CHIEF COMPLAINT/HISTORY OF PRESENT ILLNESS: I was asked by Dr. Pereira to evaluate this 75-year-old gentleman regarding a history of BPH and possibly previous urinary retention. Briefly, the patient has a history of left-sided facial swelling and cellulitis, was brought him to the emergency room. 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 He was admitted for management of the same. Apparently, the patient had a catheter placed at the time of admission, which was discontinued yesterday. The patient appears to be voiding into a diaper without difficulty since at that time, but Dr. Pereira was concerned regarding some possible BPH in the patient. As such, I was asked by with the patient. The patient cannot provide much information or communicate very well. Most of the information is gathered from the chart. PAST MEDICAL HISTORY: 1. Diabetes mellitus. 2. Hypertension. 3. CHF. 4. Atrial fibrillation. 5. Dementia. 6. ENT malignancy. PAST SURGICAL HISTORY: 1. Tracheostomy. 2. Pacemaker. 3. ENT surgery. 4. G-tube placement. MEDICATIONS: Please see the chart for list of medications and administration details. ALLERGIES: AUBREY inhibitors. SOCIAL HISTORY: Remarkable for smoking in the past. No history of alcohol or drug abuse. The patient lives in a [place] [facility] facility. FAMILY HISTORY: Noncontributory. REVIEW OF SYSTEMS: A 12-system review of systems cannot be done, as the patient is a very poor historian. PHYSICAL EXAMINATION: GENERAL: The patient is an elderly gentleman, awake, appears alert, no obvious distress. HEENT: NC/AT. EOMI. NECK: Supple. Full range of motion. Oropharynx clear. CHEST: Within normal limits. ABDOMEN: Soft, flat, somewhat overweight, and nondistended. GENITOURINARY: Normal male external genitalia. Bilateral descended testes and cord structures with no masses or tenderness to palpation. EXTREMITIES: Normal perfused. No cyanosis, clubbing or edema. BACK: No CVA tenderness to percussion. NEUROLOGIC: Deferred, as the patient cannot really cooperate with the examination. LABORATORY AND DIAGNOSTIC DATA: White blood cell count 6.9, hematocrit 39.5, and platelets 252,000. Sodium 142, potassium 3.6, chloride 102, bicarbonate 29, BUN 24, creatinine 2.1 and glucose 86. Calcium 8.2. LFTs within normal limits. Urinalysis, specific gravity 1.010 and pH 7.0. Dip test essentially negative for all findings except urobilinogen, which is 1+. Diagnostic imaging, CT scan of the abdomen and pelvis reveals dilated small bowel with gradual tapering to normal caliber distal small bowel. No evidence of abrupt transition consistent with likely functional bowel versus possible ileus, small amount ascites fluid, and left small pleural effusion. Kidneys are unremarkable. There is no mention of bladder abnormalities or prostate abnormalities. ASSESSMENT AND PLAN: In summary, the patient is a 76-year-old gentleman with a history of craniofacial ear, nose, and throat malignancy. He presents to the hospital with history of left face swelling and evidence of cellulitis. He is admitted for management of the same. Apparently, the patient has a possible history of some BPH, although I did not see this in chart. He had a catheter placed on admission, but that was removed yesterday. The patient has since been diaper voiding without any problems. Per the charge nurse, the patient cannot cooperate with much questioning. Physical exam essentially unremarkable. Laboratory data is notable for an elevated creatinine level, although it is declined from admission. Diagnostic imaging CT scan does not reveal any genitourinary abnormalities. I think, we will merely observe the patient from a standpoint at this point in time. He appears to avoiding well in his diaper without any obvious or apparent difficulty. He is already receiving Flomax to help him urinate. It is better to leave the catheter in this debilitated elderly patient if possible. If there is any apparent difficulty urinating with bladder ultrasound and if there is evidence of retention, consider replacing the catheter or further measures as warranted. Thank you again for allowing me to participate in the care of this unfortunate gentleman. Please do not hesitate to contact me for any questions that you may further have regarding his care. I will be happy to see him with you as needed. Pepe Fuentes M.D. DR: MARVIN JOB#: [id number] CC:
[2016-11-23] MEDS: Metoprolol 25mg tab GT SCH (21:00)
[2016-11-24] VITALS: BP 163/83
[2016-11-24] MEDS: Zolpidem 5mg tab GT PRN ×2 (00:34→23:33)
[2016-11-24] MEDS: NovoLOG Insulin Flexpen SUBQ SCH ×5 (00:55→23:37)
[2016-11-24 04:00] VITALS: BP 157/84
[2016-11-24] MEDS: D5NS 1,000 ML IV SCH ×3 (04:30→19:57)
[2016-11-24] MEDS: Metoclopramide 10mg/2ml Inj IVP SCH ×3 (05:13→21:55)
[2016-11-24] MEDS: Piperacillin/Tazobactam 3.375 GM in D5W 110 ML IVPB SCH ×2 (05:14→14:33)
[2016-11-24 07:43] LABS: ALANINE AMINOTRANSFERASE 6 U/L (3-41); ALBUMIN/GLOBULIN RATIO 0.7 (1.0-2.7); ANION GAP 11 (5-15); ASPARTATE AMINO TRANSFERASE 16 U/L (5-40); CALCIUM 8.3 mg/dL (8.6-10.2); CARBON DIOXIDE 27 mEQ/L (20-30); CHLORIDE 108 mEQ/L (98-107); HEMOLYSIS 3; POTASSIUM 3.4 mEQ/L (3.4-4.9); SODIUM 146 mEQ/L (135-145); TOTAL PROTEIN 5.6 g/dL (6.6-8.7)
--- NOTE | 2016-11-24 07:52 | General Progress Note ---
Assessment/Plan Problem List: (1) Hypothyroidism ICD Codes: E03.9 - Hypothyroidism, unspecified SNOMED: 68282401 (2) Swelling of left side of face ICD Codes: R22.0 - Localized swelling, mass and lump, head SNOMED: 403666613 (3) Cellulitis and abscess of face ICD Codes: L03.211 - Cellulitis of face; L02.01 - Cutaneous abscess of face SNOMED: 928658244 (4) PEG (percutaneous endoscopic gastrostomy) adjustment/replacement/removal ICD Codes: Z43.1 - Encounter for attention to gastrostomy SNOMED: 438171040 (5) Dysphagia ICD Codes: R13.10 - Dysphagia SNOMED: 11352976 (6) History of respiratory failure ICD Codes: Z87.09 - History of respiratory failure SNOMED: 917720826 (7) History of CVA (cerebrovascular accident) ICD Codes: Z86.73 - History of CVA (cerebrovascular accident) SNOMED: 226342747 (8) Thyroid mass of unclear etiology ICD Codes: E07.89 - Other specified disorders of thyroid SNOMED: 193684265 (9) Diabetes ICD Codes: E11.9 - Diabetes SNOMED: 27431579 Assessment/Plan thyroid mass s/p FNA - benign TSH elevated - continue Levothyroxine IV for 2 more days glucose values are well controlled continue blood glucose monitoring and Novolog coverage Subjective Allergies: Coded Allergies: AUBREY INHIBITORS (Verified Allergy, Unknown, ANGIOEDEMA, 09/17/12) Subjective events noted interval notes reviewed Objective Last 24 Hour Vital Signs Date Time Temp Pulse Resp B/P Pulse Ox O2 Delivery O2 Flow Rate FiO2 11/24/16 04:00 97.2 63 18 157/84 96 Room Air 11/24/16 00:00 97.3 61 18 163/83 96 Room Air 11/23/16 21:00 70 116/69 11/23/16 20:00 98.3 70 21 116/69 98 Room Air 11/23/16 16:00 97.2 61 20 167/82 97 Room Air 11/23/16 12:00 96.1 62 20 141/78 96 Room Air 11/23/16 08:36 60 127/70 11/23/16 08:00 97.2 60 20 127/70 93 Room Air Intake and Output 11/23/16 11/24/16 19:00 07:00 Intake Total 1640 ml 1071 ml Output Total 350 ml Balance 1290 ml 1071 ml Intake Free Water 100 ml IV Total 1300 ml 1071 ml Tube Feeding 240 ml Output Urine Total 350 ml # Voids 5 Laboratory Tests 11/24/16 06:10: Sodium Level [Pending], Potassium Level [Pending], Chloride Level [Pending], Carbon Dioxide Level [Pending], Blood Urea Nitrogen [Pending], Creatinine [ Pending], Estimat Glomerular Filtration Rate [Pending], Glucose Level [Pending] , Uric Acid [Pending], Calcium Level [Pending], Phosphorus Level [Pending], Total Bilirubin [Pending], Aspartate Amino Transf (AST/SGOT) [Pending], Alanine Aminotransferase (ALT/SGPT) [Pending], Alkaline Phosphatase [Pending], Pro-B- Type Natriuretic Peptide [Pending], Total Protein [Pending], Albumin [Pending], Globulin [Pending], Random Vancomycin Level [Pending] Height (Feet): 5 Height (Inches): 9.00 Weight (Pounds): 170 General Appearance: no apparent distress Neck: normal alignment Cardiovascular: normal rate Respiratory/Chest: decreased breath sounds Abdomen: normal bowel sounds, other - PEG Pelvis: normal external exam Edema: no edema noted Arm (L), no edema noted Arm (R), no edema noted Leg (L), no edema noted Leg (R), no edema noted Pedal (L), no edema noted Pedal (R), no edema noted Generalized Objective Current Medications Medications (Trade) Dose Ordered Sig/Yousuf Route PRN Reason Start Time Stop Time Status Last Admin Dose Admin Acetaminophen (Tylenol) 650 mg Q4H PRN ORAL fever 11/12/16 03:34 12/12/16 03:33 Amiodarone HCl (Cordarone) 100 mg DAILY GT 11/12/16 09:00 12/12/16 08:59 11/23/16 08:35 Apixaban (Eliquis) 2.5 mg Q12HR ORAL 11/12/16 09:00 12/12/16 08:59 11/23/16 21:01 Bisacodyl (Dulcolax) 10 mg TWICE A DAY RECTAL 11/19/16 10:00 12/19/16 09:59 11/22/16 18:21 Bupropion HCl (Wellbutrin) 75 mg Q12HR GT 11/18/16 11:06 12/12/16 08:59 11/23/16 21:01 Dextrose (Dextrose 50%) STAT PRN IV Hypoglycemia 11/12/16 03:35 12/12/16 03:34 Dextrose/Sodium Chloride (D5ns) 1,000 ml @ 100 mls/hr Q10H IV 11/21/16 16:30 12/21/16 16:29 11/24/16 04:30 Doxazosin Mesylate (Cardura) 1 mg BID GT 11/23/16 18:00 12/23/16 17:59 11/23/16 18:24 Finasteride (Proscar) 5 mg DAILY GT 11/12/16 09:00 12/12/16 08:59 11/23/16 08:36 Insulin Aspart (NovoLOG) Q6HR SUBQ 11/14/16 18:00 12/14/16 17:59 11/24/16 00:55 Levothyroxine Sodium (Synthroid) 100 mcg DAILY IV 11/22/16 12:00 12/22/16 11:59 11/23/16 11:30 Metoclopramide HCl 5 mg 5 mg EVERY 8 HOURS IVP 11/21/16 14:00 12/21/16 13:59 11/24/16 05:13 Metoclopramide HCl (Reglan) 5 mg Q8H PRN IVP Nausea & Vomiting 11/21/16 16:37 12/16/16 14:44 Metoprolol Tartrate 25 mg 25 mg Q12HR GT 11/23/16 21:00 12/23/16 20:59 11/23/16 21:00 Ondansetron HCl (Zofran) 4 mg Q8H PRN IVP Nausea & Vomiting 11/19/16 21:15 12/19/16 21:14 Piperacillin Sod/ Tazobactam Sod/ Dextrose (Zosyn/D5W) 110 ml @ 27.5 mls/hr Q8HR IVPB 11/23/16 22:00 11/30/16 21:59 11/24/16 05:14 Polyethylene Glycol (Miralax) 17 gm HSPRN PRN GT Constipation 11/12/16 03:39 12/12/16 03:38 11/15/16 17:45 Valproic Acid (Depakene) 250 mg DAILY GT 11/12/16 09:00 12/12/16 08:59 11/23/16 08:35 Zolpidem Tartrate (Ambien) 5 mg HSPRN PRN GT Insomnia 11/14/16 17:24 12/12/16 03:33 11/24/16 00:34 Item Value Date Time Bedside Blood Glucose 85 mg/dl 11/24/16 0542 Bedside Blood Glucose 125 mg/dl H 11/24/16 0055 Bedside Blood Glucose 105 mg/dl 11/23/16 1738 Bedside Blood Glucose 104 mg/dl 11/23/16 1223 Bedside Blood Glucose 86 mg/dl 11/23/16 0600 Bedside Blood Glucose 103 mg/dl 11/23/16 0000 BETTY GERMAIN Nov 24, 2016 07:52
[2016-11-24 07:56] LABS: PHOSPHORUS 2.9 mg/dL (2.5-4.8); URIC ACID 3.8 mg/dL (3.0-7.5)
[2016-11-24 08:00] VITALS: BP 144/70
[2016-11-24] MEDS: Doxazosin 1mg Tab GT SCH ×2 (08:39→18:30)
[2016-11-24] MEDS: Metoprolol 25mg tab GT SCH ×2 (08:39→21:54)
[2016-11-24] MEDS: Amiodarone 200mg tab GT SCH (08:39)
[2016-11-24] MEDS: BuPROPion 75mg Tab GT SCH ×2 (08:39→21:53)
[2016-11-24] MEDS: Valproic Acid 250mg/5ml Liquid GT SCH (08:39)
[2016-11-24] MEDS: Eliquis 2.5mg tablet ORAL SCH ×2 (08:39→21:55)
--- NOTE | 2016-11-24 10:23 | General Progress Note ---
Assessment/Plan Status: stable - from renal stand Status Narrative Cr down to 2 Vanco level down to 17 Assessment/Plan Cr 0.9 in 2 went up to 2.7 in 11/21 Acute renal failure due to Vancomycin- Vanco trough on 11/17 over 54 , on 11/20 over 38 Hypothyroidism Plan: continue to Hold Vanco Monitor levels- antibiotics for renal dose adjustments Monitor renal parameters- Keep BP over 100 syst DC Garnett start cardura in [place] [facility] [place] Subjective ROS Limited/Unobtainable: No Constitutional: Reports: malaise Allergies: Coded Allergies: AUBREY INHIBITORS (Verified Allergy, Unknown, ANGIOEDEMA, 09/17/12) Objective Last 24 Hour Vital Signs Date Time Temp Pulse Resp B/P Pulse Ox O2 Delivery O2 Flow Rate FiO2 11/24/16 08:39 61 144/70 11/24/16 08:00 96.7 61 18 144/70 93 Room Air 11/24/16 04:00 97.2 63 18 157/84 96 Room Air 11/24/16 00:00 97.3 61 18 163/83 96 Room Air 11/23/16 21:00 70 116/69 11/23/16 20:00 98.3 70 21 116/69 98 Room Air 11/23/16 16:00 97.2 61 20 167/82 97 Room Air 11/23/16 12:00 96.1 62 20 141/78 96 Room Air Intake and Output 11/23/16 11/24/16 19:00 07:00 Intake Total 1640 ml 1071 ml Output Total 350 ml Balance 1290 ml 1071 ml Intake Free Water 100 ml IV Total 1300 ml 1071 ml Tube Feeding 240 ml Output Urine Total 350 ml # Voids 5 Laboratory Tests 11/24/16 06:10: Sodium Level 146H, Potassium Level 3.4, Chloride Level 108H, Carbon Dioxide Level 27, Anion Gap 11, Blood Urea Nitrogen 21, Creatinine 2.0H, Estimat Glomerular Filtration Rate , Glucose Level 91, Uric Acid 3.8, Calcium Level 8.3L , Phosphorus Level 2.9, Total Bilirubin 0.3, Aspartate Amino Transf (AST/SGOT) 16, Alanine Aminotransferase (ALT/SGPT) 6, Alkaline Phosphatase 58, Pro-B-Type Natriuretic Peptide 7899H, Total Protein 5.6L, Albumin 2.4L, Globulin 3.2, Albumin/Globulin Ratio 0.7L, Random Vancomycin Level 17.9 Height (Feet): 5 Height (Inches): 9.00 Weight (Pounds): 170 General Appearance: no apparent distress Cardiovascular: normal rate Respiratory/Chest: decreased breath sounds Abdomen: soft Objective other physical exam not changed DARIN QUESADA Nov 24, 2016 10:23
--- NOTE | 2016-11-24 11:03 | Diagnostic Imaging Report ---
Indication: Abnormal renal function test Technique: Renal ultrasound Findings: The right kidney measures 11.3 cm in length. The left kidney is poorly imaged grossly measuring 10.9 cm. There is no hydronephrosis. A right renal cyst measures 1.1 cm. No sonographically evident renal calculi are seen. The visualized portions of the inferior vena cava are unremarkable. Bladder is moderately distended. Impression: Suboptimal examination. No obvious hydronephrosis. Small right renal cyst. Moderately distended bladder. Reported Garnett catheter not seen. Clinical correlation recommended.
--- NOTE | 2016-11-24 11:35 | General Progress Note ---
Assessment/Plan Assessment/Plan ASSESSMENT: 1. Macrocytosis potentially 2/2 liver disease, will eval with US 2. Anemia secondary to chronic disease. 3. Right lower lobe thyroid nodule 19 x 11mm, s/p fna - benign 4. Diabetes mellitus. 5. Atrial fibrillation. 6. Cellulitis of the face. 7. Diabetes mellitus. 8. Hypertension. 9. Psychiatric history. 10. Afib on eliquis RECOMMENDATIONS: 1. Monitor counts. 2. Transfuse to hgb >7 3. US abd pending 4. Followup on ID, endo, Pulmonary recs, and ENT recs 5. Reviewed pathology of thyroid - benign 6. DVT ppx with eliquis. 7. GI ppx as needed. 8. Pain control. 9. Abx as needed. 10. staff Thank you, Jax Alcaraz MD Subjective Constitutional: Reports: no symptoms HEENT: Reports: no symptoms Cardiovascular: Reports: no symptoms Respiratory: Reports: no symptoms Gastrointestinal/Abdominal: Reports: no symptoms Genitourinary: Reports: no symptoms Neurologic/Psychiatric: Reports: no symptoms Endocrine: Reports: no symptoms Hematologic/Lymphatic: Reports: anemia Allergies: Coded Allergies: AUBREY INHIBITORS (Verified Allergy, Unknown, ANGIOEDEMA, 09/17/12) Subjective stable, without bleeding, no night sweats, face improved Objective Last 24 Hour Vital Signs Date Time Temp Pulse Resp B/P Pulse Ox O2 Delivery O2 Flow Rate FiO2 11/24/16 08:39 61 144/70 11/24/16 08:00 96.7 61 18 144/70 93 Room Air 11/24/16 04:00 97.2 63 18 157/84 96 Room Air 11/24/16 00:00 97.3 61 18 163/83 96 Room Air 11/23/16 21:00 70 116/69 11/23/16 20:00 98.3 70 21 116/69 98 Room Air 11/23/16 16:00 97.2 61 20 167/82 97 Room Air 11/23/16 12:00 96.1 62 20 141/78 96 Room Air Intake and Output 11/23/16 11/24/16 19:00 07:00 Intake Total 1640 ml 1071 ml Output Total 350 ml Balance 1290 ml 1071 ml Intake Free Water 100 ml IV Total 1300 ml 1071 ml Tube Feeding 240 ml Output Urine Total 350 ml # Voids 5 Laboratory Tests 11/24/16 06:10: Sodium Level 146H, Potassium Level 3.4, Chloride Level 108H, Carbon Dioxide Level 27, Anion Gap 11, Blood Urea Nitrogen 21, Creatinine 2.0H, Estimat Glomerular Filtration Rate , Glucose Level 91, Uric Acid 3.8, Calcium Level 8.3L , Phosphorus Level 2.9, Total Bilirubin 0.3, Aspartate Amino Transf (AST/SGOT) 16, Alanine Aminotransferase (ALT/SGPT) 6, Alkaline Phosphatase 58, Pro-B-Type Natriuretic Peptide 7899H, Total Protein 5.6L, Albumin 2.4L, Globulin 3.2, Albumin/Globulin Ratio 0.7L, Random Vancomycin Level 17.9 Height (Feet): 5 Height (Inches): 9.00 Weight (Pounds): 170 General Appearance: alert EENT: TMs normal Neck: supple Cardiovascular: regular rhythm Respiratory/Chest: lungs clear Abdomen: soft Extremities: non-tender Edema: 1+ Leg (L), 1+ Leg (R) Edema: mild edema Neurologic: alert Skin: warm/dry Jax Alcaraz Nov 24, 2016 11:35
--- NOTE | 2016-11-24 12:37 | General Progress Note ---
Assessment/Plan Problem List: (1) History of CVA (cerebrovascular accident) ICD Codes: Z86.73 - History of CVA (cerebrovascular accident) SNOMED: 859583619 (2) History of respiratory failure ICD Codes: Z87.09 - History of respiratory failure SNOMED: 280164008 (3) Dysphagia ICD Codes: R13.10 - Dysphagia SNOMED: 28608184 (4) PEG (percutaneous endoscopic gastrostomy) adjustment/replacement/removal ICD Codes: Z43.1 - Encounter for attention to gastrostomy SNOMED: 133723190 (5) Cellulitis and abscess of face ICD Codes: L03.211 - Cellulitis of face; L02.01 - Cutaneous abscess of face SNOMED: 877227779 (6) Swelling of left side of face ICD Codes: R22.0 - Localized swelling, mass and lump, head SNOMED: 101292898 (7) Diabetes ICD Codes: E11.9 - Diabetes SNOMED: 73433747 (8) HTN (hypertension) ICD Codes: I10 - HTN (hypertension) SNOMED: 51457083 (9) Sepsis ICD Codes: A41.9 - Sepsis SNOMED: 19950873 (10) Thyroid mass of unclear etiology ICD Codes: E07.89 - Other specified disorders of thyroid SNOMED: 198034987 Status: progressing Assessment/Plan reviewed chart and labs discussed w gi he ordered multiple motility agents will observe sp vomit per dr munoz he doesnt have sbo and has ileus Subjective ROS Limited/Unobtainable: Yes Constitutional: Reports: no symptoms Allergies: Coded Allergies: AUBREY INHIBITORS (Verified Allergy, Unknown, ANGIOEDEMA, 09/17/12) Objective Last 24 Hour Vital Signs Date Time Temp Pulse Resp B/P Pulse Ox O2 Delivery O2 Flow Rate FiO2 11/24/16 08:39 61 144/70 11/24/16 08:00 96.7 61 18 144/70 93 Room Air 11/24/16 04:00 97.2 63 18 157/84 96 Room Air 11/24/16 00:00 97.3 61 18 163/83 96 Room Air 11/23/16 21:00 70 116/69 11/23/16 20:00 98.3 70 21 116/69 98 Room Air 11/23/16 16:00 97.2 61 20 167/82 97 Room Air Intake and Output 11/23/16 11/24/16 19:00 07:00 Intake Total 1640 ml 1071 ml Output Total 350 ml Balance 1290 ml 1071 ml Intake Free Water 100 ml IV Total 1300 ml 1071 ml Tube Feeding 240 ml Output Urine Total 350 ml # Voids 5 Laboratory Tests 11/24/16 06:10: Sodium Level 146H, Potassium Level 3.4, Chloride Level 108H, Carbon Dioxide Level 27, Anion Gap 11, Blood Urea Nitrogen 21, Creatinine 2.0H, Estimat Glomerular Filtration Rate , Glucose Level 91, Uric Acid 3.8, Calcium Level 8.3L , Phosphorus Level 2.9, Total Bilirubin 0.3, Aspartate Amino Transf (AST/SGOT) 16, Alanine Aminotransferase (ALT/SGPT) 6, Alkaline Phosphatase 58, Pro-B-Type Natriuretic Peptide 7899H, Total Protein 5.6L, Albumin 2.4L, Globulin 3.2, Albumin/Globulin Ratio 0.7L, Random Vancomycin Level 17.9 Height (Feet): 5 Height (Inches): 9.00 Weight (Pounds): 170 EENT: PERRL/EOMI Neck: supple Cardiovascular: normal rate Respiratory/Chest: lungs clear Abdomen: soft Laina Pereira MD Nov 24, 2016 12:37
[2016-11-24 12:59] VITALS: BP 145/78
--- NOTE | 2016-11-24 14:30 | Cardiac Electrophysiology PN ---
Assessment/Plan Status Narrative Technically difficult study due to poor acoustic windows and GI Tube blocking scan area. Apical views obtained only. Study quality precludes accurate assessment of regional wall motion. M-mode measurements of left ventricle not obtainable. Normal left ventricular chamber size, grossly systolic function and wall motion to extent visualized. Left ventricular ejection fraction estimated to be 55-60 %. Mild ventricular hypertrophy. No evidence of pericardial fat or effusion. All other cardiac chamber sizes are within normal limits. Aortic valve calcification with decreased cusp excursion. Moderately thickened mitral valve leaflets with normal excursion. Moderate mitral annulus and aortic root calcification. Pulmonic valve not visualized. Normal tricuspid valve structure. Subcostal views not obtainable. Assessment/Plan 1. Status post [facility] [place] permanent pacemaker implantation with normal function 2. PAF in sinus rhythm, on amiodarone 100 mg daily, metoprolol 25 bid and Eliquis 2.5 mg twice a day. 3. Hypertension.Continue metoprolol 25 bid. Echocardiogram EF 55% 4. Hypothyroidism, on Synthroid under management of Dr. Chairez. 5. Left facial cellulitis improving on iv ABx. CT scan of the sinuses showed soft tissue swelling, and no abscess 6. Dysphagia, status post PEG 7. Diabetes. 8. Thyroid mass. FNA of thyroid mass> benign DW RN Subjective Subjective Alert in NAD. Tolerating GT feeding. No chest pain or SOB. Objective Last 24 Hour Vital Signs Date Time Temp Pulse Resp B/P Pulse Ox O2 Delivery O2 Flow Rate FiO2 11/24/16 12:59 97.0 62 20 145/78 98 Room Air 11/24/16 08:39 61 144/70 11/24/16 08:00 96.7 61 18 144/70 93 Room Air 11/24/16 04:00 97.2 63 18 157/84 96 Room Air 11/24/16 00:00 97.3 61 18 163/83 96 Room Air 11/23/16 21:00 70 116/69 11/23/16 20:00 98.3 70 21 116/69 98 Room Air 11/23/16 16:00 97.2 61 20 167/82 97 Room Air Intake and Output 11/23/16 11/24/16 19:00 07:00 Intake Total 1640 ml 1071 ml Output Total 350 ml Balance 1290 ml 1071 ml Intake Free Water 100 ml IV Total 1300 ml 1071 ml Tube Feeding 240 ml Output Urine Total 350 ml # Voids 5 Laboratory Tests Test 11/24/16 06:10 Sodium Level 146 mEQ/L (135-145) H Potassium Level 3.4 mEQ/L (3.4-4.9) Chloride Level 108 mEQ/L (98-107) H Carbon Dioxide Level 27 mEQ/L (20-30) Anion Gap 11 (5-15) Blood Urea Nitrogen 21 mg/dL (7-23) Creatinine 2.0 mg/dL (0.7-1.2) H Estimat Glomerular Filtration Rate mL/min (>60) Glucose Level 91 mg/dL (74-106) Uric Acid 3.8 mg/dL (3.0-7.5) Calcium Level 8.3 mg/dL (8.6-10.2) L Phosphorus Level 2.9 mg/dL (2.5-4.8) Total Bilirubin 0.3 mg/dL (0.0-1.2) Aspartate Amino Transf (AST/SGOT) 16 U/L (5-40) Alanine Aminotransferase (ALT/SGPT) 6 U/L (3-41) Alkaline Phosphatase 58 U/L (40-129) Pro-B-Type Natriuretic Peptide 7899 pg/mL (0-450) H Total Protein 5.6 g/dL (6.6-8.7) L Albumin 2.4 g/dL (3.5-5.2) L Globulin 3.2 g/dL Albumin/Globulin Ratio 0.7 (1.0-2.7) L Random Vancomycin Level 17.9 ug/mL Objective Neck: No JVD. Cardiovascular: Regular rhythm.2/6 Systolic murmur LSB. Pacer left subclavian. Respiratory/Chest: lungs clear Abdomen: Soft. PEG intact. Extremities: no edema HILDA MEJIA Nov 24, 2016 14:30
[2016-11-24] MEDS ORDERED: D5NS 1000ml IV ONE (15:12)
[2016-11-24 16:00] VITALS: BP 159/76
--- NOTE | 2016-11-24 17:22 | Infectious Diseases Prog Note ---
Assessment/Plan Problems: (1) Cellulitis and abscess of face Assessment & Plan: recieved 15 days of zosyn and vancomycin empirically, vancomycin on hold since it is super therapeutic , last CT scan of the sinuses showed soft tissue swelling, and no abscess, can't do an MRI of the head with contrast to rule out any soft tissue abscess or infiltration since he has pacemaker. will d/c vancomycin and zosyn , and repeat another CT scan of the maxillary area to rule out deep abscess or fluids collection , ENT is following (2) Cellulitis Assessment & Plan: of the neck ,improved , CT scan showed cellulitis and right lower thyroids pole mass S/P biopsy with pathology showed benign nodule . (3) Diabetes Assessment & Plan: recommend tight glycemic control to keep blood glucose between 80-120 (4) HTN (hypertension) Assessment & Plan: continue meds to keep SBP <140 (5) Thyroid mass of unclear etiology Assessment & Plan: had US and FNA biopsy , pathology showed benign nodule , endocrinology is following (6) Ileus Assessment & Plan: improved , no recurrent vomiting, no abdominal pain. had CT abdomen showed illeus , restarted on tube feeding as per general surgery Subjective Constitutional: Reports: no symptoms HEENT: Reports: other - left facial swelling with redness. Respiratory: Reports: no symptoms Breasts: Reports: no symptoms Cardiovascular: Reports: no symptoms Gastrointestinal/Abdominal: Reports: no symptoms Genitourinary: Reports: no symptoms Neurologic: Reports: no symptoms Psychiatric: Reports: no symptoms Skin: Reports: no symptoms Endocrine: Reports: no symptoms Allergies: Coded Allergies: AUBREY INHIBITORS (Verified Allergy, Unknown, ANGIOEDEMA, 09/17/12) Objective Vital Signs Last 24 Hour Vital Signs Date Time Temp Pulse Resp B/P Pulse Ox O2 Delivery O2 Flow Rate FiO2 11/24/16 16:00 97.5 60 18 159/76 98 Room Air 11/24/16 12:59 97.0 62 20 145/78 98 Room Air 11/24/16 08:39 61 144/70 11/24/16 08:00 96.7 61 18 144/70 93 Room Air 11/24/16 04:00 97.2 63 18 157/84 96 Room Air 11/24/16 00:00 97.3 61 18 163/83 96 Room Air 11/23/16 21:00 70 116/69 11/23/16 20:00 98.3 70 21 116/69 98 Room Air Height (Feet): 5 Height (Inches): 9.00 Weight (Pounds): 170 General Appearance: no acute distress, cachetic, other - left facial swelling with redness HEENT: atraumatic, anicteric, supple, no JVD, other - left facial swelling Respiratory/Chest: chest wall non-tender, lungs clear, normal breath sounds, no respiratory distress, no accessory muscle use Cardiovascular: normal peripheral pulses, normal rate, regular rhythm, no gallop/murmur, no JVD Abdomen: normal bowel sounds, soft, non tender, no organomegaly, non distended , no mass Extremities: no cyanosis, no clubbing Skin: no rash, no lesions Laboratory Tests Test 11/24/16 06:10 Sodium Level 146 mEQ/L (135-145) H Potassium Level 3.4 mEQ/L (3.4-4.9) Chloride Level 108 mEQ/L (98-107) H Carbon Dioxide Level 27 mEQ/L (20-30) Anion Gap 11 (5-15) Blood Urea Nitrogen 21 mg/dL (7-23) Creatinine 2.0 mg/dL (0.7-1.2) H Estimat Glomerular Filtration Rate mL/min (>60) Glucose Level 91 mg/dL (74-106) Uric Acid 3.8 mg/dL (3.0-7.5) Calcium Level 8.3 mg/dL (8.6-10.2) L Phosphorus Level 2.9 mg/dL (2.5-4.8) Total Bilirubin 0.3 mg/dL (0.0-1.2) Aspartate Amino Transf (AST/SGOT) 16 U/L (5-40) Alanine Aminotransferase (ALT/SGPT) 6 U/L (3-41) Alkaline Phosphatase 58 U/L (40-129) Pro-B-Type Natriuretic Peptide 7899 pg/mL (0-450) H Total Protein 5.6 g/dL (6.6-8.7) L Albumin 2.4 g/dL (3.5-5.2) L Globulin 3.2 g/dL Albumin/Globulin Ratio 0.7 (1.0-2.7) L Random Vancomycin Level 17.9 ug/mL Current Medications Medications (Trade) Dose Ordered Sig/Yousuf Route PRN Reason Start Time Stop Time Status Last Admin Dose Admin Acetaminophen (Tylenol) 650 mg Q4H PRN ORAL fever 11/12/16 03:34 12/12/16 03:33 Amiodarone HCl (Cordarone) 100 mg DAILY GT 11/12/16 09:00 12/12/16 08:59 11/24/16 08:39 Apixaban (Eliquis) 2.5 mg Q12HR ORAL 11/12/16 09:00 12/12/16 08:59 11/24/16 08:39 Bisacodyl (Dulcolax) 10 mg TWICE A DAY RECTAL 11/19/16 10:00 12/19/16 09:59 11/22/16 18:21 Bupropion HCl (Wellbutrin) 75 mg Q12HR GT 11/18/16 11:06 12/12/16 08:59 11/24/16 08:39 Dextrose (Dextrose 50%) STAT PRN IV Hypoglycemia 11/12/16 03:35 12/12/16 03:34 Dextrose/Sodium Chloride (D5ns) 1,000 ml @ 100 mls/hr Q10H IV 11/21/16 16:30 12/21/16 16:29 11/24/16 04:30 Doxazosin Mesylate (Cardura) 2 mg BID GT 11/24/16 18:00 12/24/16 17:59 Finasteride (Proscar) 5 mg DAILY GT 11/12/16 09:00 12/12/16 08:59 11/24/16 08:39 Insulin Aspart (NovoLOG) Q6HR SUBQ 11/14/16 18:00 12/14/16 17:59 11/24/16 00:55 Levothyroxine Sodium (Synthroid) 100 mcg DAILY IV 11/22/16 12:00 12/22/16 11:59 11/24/16 08:39 Metoclopramide HCl 5 mg 5 mg EVERY 8 HOURS IVP 11/21/16 14:00 12/21/16 13:59 11/24/16 14:31 Metoclopramide HCl (Reglan) 5 mg Q8H PRN IVP Nausea & Vomiting 11/21/16 16:37 12/16/16 14:44 Metoprolol Tartrate 25 mg 25 mg Q12HR GT 11/23/16 21:00 12/23/16 20:59 11/24/16 08:39 Ondansetron HCl (Zofran) 4 mg Q8H PRN IVP Nausea & Vomiting 11/19/16 21:15 12/19/16 21:14 Piperacillin Sod/ Tazobactam Sod/ Dextrose (Zosyn/D5W) 110 ml @ 27.5 mls/hr Q8HR IVPB 11/23/16 22:00 11/30/16 21:59 11/24/16 14:33 Polyethylene Glycol (Miralax) 17 gm HSPRN PRN GT Constipation 11/12/16 03:39 12/12/16 03:38 11/15/16 17:45 Valproic Acid (Depakene) 250 mg DAILY GT 11/12/16 09:00 12/12/16 08:59 11/24/16 08:39 Zolpidem Tartrate (Ambien) 5 mg HSPRN PRN GT Insomnia 11/14/16 17:24 12/12/16 03:33 11/24/16 00:34 Aida Frederick M.D. Nov 24, 2016 17:22
--- NOTE | 2016-11-24 17:42 | Pulmonology Progress Note ---
Assessment/Plan Problems: (1) Respiratory insufficiency (2) Cellulitis (3) HTN (hypertension) (4) History of CVA (cerebrovascular accident) Assessment/Plan improving continue antibiotics biopsy results noted respiratory treatment titrate fio2 to sat of 92% Subjective ROS Limited/Unobtainable: No Respiratory: Reports: dyspnea at rest, dyspnea on exertion, productive cough, shortness of breath, sputum, wheezing Neurologic: Reports: confusion, weakness Skin: Reports: rash, ulcer Allergies: Coded Allergies: AUBREY INHIBITORS (Verified Allergy, Unknown, ANGIOEDEMA, 09/17/12) Objective Last 24 Hour Vital Signs Date Time Temp Pulse Resp B/P Pulse Ox O2 Delivery O2 Flow Rate FiO2 11/24/16 16:00 97.5 60 18 159/76 98 Room Air 11/24/16 12:59 97.0 62 20 145/78 98 Room Air 11/24/16 08:39 61 144/70 11/24/16 08:00 96.7 61 18 144/70 93 Room Air 11/24/16 04:00 97.2 63 18 157/84 96 Room Air 11/24/16 00:00 97.3 61 18 163/83 96 Room Air 11/23/16 21:00 70 116/69 11/23/16 20:00 98.3 70 21 116/69 98 Room Air Intake and Output 11/23/16 11/24/16 19:00 07:00 Intake Total 1640 ml 1071 ml Output Total 350 ml Balance 1290 ml 1071 ml Intake Free Water 100 ml IV Total 1300 ml 1071 ml Tube Feeding 240 ml Output Urine Total 350 ml # Voids 5 General Appearance: no acute distress HEENT: normocephalic, atraumatic, PERRL Respiratory/Chest: chest wall non-tender, decreased breath sounds, accessory muscle use, crackles/rales, rhonchi Cardiovascular: normal peripheral pulses, normal rate, regular rhythm, no JVD Abdomen: normal bowel sounds, soft, non tender, no organomegaly Genitourinary: normal external genitalia Extremities: no cyanosis Skin: rash, lesions, ulcers Neurologic/Psychiatric: responsive, abnormal CN, motor weakness, disoriented, aphasia, depressed affect Laboratory Tests 11/24/16 06:10: Sodium Level 146H, Potassium Level 3.4, Chloride Level 108H, Carbon Dioxide Level 27, Anion Gap 11, Blood Urea Nitrogen 21, Creatinine 2.0H, Estimat Glomerular Filtration Rate , Glucose Level 91, Uric Acid 3.8, Calcium Level 8.3L , Phosphorus Level 2.9, Total Bilirubin 0.3, Aspartate Amino Transf (AST/SGOT) 16, Alanine Aminotransferase (ALT/SGPT) 6, Alkaline Phosphatase 58, Pro-B-Type Natriuretic Peptide 7899H, Total Protein 5.6L, Albumin 2.4L, Globulin 3.2, Albumin/Globulin Ratio 0.7L, Random Vancomycin Level 17.9 Current Medications Medications (Trade) Dose Ordered Sig/Yousuf Route PRN Reason Start Time Stop Time Status Last Admin Dose Admin Acetaminophen (Tylenol) 650 mg Q4H PRN ORAL fever 11/12/16 03:34 12/12/16 03:33 Amiodarone HCl (Cordarone) 100 mg DAILY GT 11/12/16 09:00 12/12/16 08:59 11/24/16 08:39 Apixaban (Eliquis) 2.5 mg Q12HR ORAL 11/12/16 09:00 12/12/16 08:59 11/24/16 08:39 Bisacodyl (Dulcolax) 10 mg TWICE A DAY RECTAL 11/19/16 10:00 12/19/16 09:59 11/22/16 18:21 Bupropion HCl (Wellbutrin) 75 mg Q12HR GT 11/18/16 11:06 12/12/16 08:59 11/24/16 08:39 Dextrose (Dextrose 50%) STAT PRN IV Hypoglycemia 11/12/16 03:35 12/12/16 03:34 Dextrose/Sodium Chloride (D5ns) 1,000 ml @ 100 mls/hr Q10H IV 11/21/16 16:30 12/21/16 16:29 11/24/16 04:30 Doxazosin Mesylate (Cardura) 2 mg BID GT 11/24/16 18:00 12/24/16 17:59 Finasteride (Proscar) 5 mg DAILY GT 11/12/16 09:00 12/12/16 08:59 11/24/16 08:39 Insulin Aspart (NovoLOG) Q6HR SUBQ 11/14/16 18:00 12/14/16 17:59 11/24/16 00:55 Levothyroxine Sodium (Synthroid) 100 mcg DAILY IV 11/22/16 12:00 12/22/16 11:59 11/24/16 08:39 Metoclopramide HCl 5 mg 5 mg EVERY 8 HOURS IVP 11/21/16 14:00 12/21/16 13:59 11/24/16 14:31 Metoclopramide HCl (Reglan) 5 mg Q8H PRN IVP Nausea & Vomiting 11/21/16 16:37 12/16/16 14:44 Metoprolol Tartrate (Lopressor) 25 mg Q12HR GT 11/23/16 21:00 12/23/16 20:59 11/24/16 08:39 Ondansetron HCl (Zofran) 4 mg Q8H PRN IVP Nausea & Vomiting 11/19/16 21:15 12/19/16 21:14 Polyethylene Glycol (Miralax) 17 gm HSPRN PRN GT Constipation 11/12/16 03:39 12/12/16 03:38 11/15/16 17:45 Valproic Acid (Depakene) 250 mg DAILY GT 11/12/16 09:00 12/12/16 08:59 11/24/16 08:39 Zolpidem Tartrate (Ambien) 5 mg HSPRN PRN GT Insomnia 11/14/16 17:24 12/12/16 03:33 11/24/16 00:34 MARY SELF Nov 24, 2016 17:42
[2016-11-24 20:00] VITALS: BP 116/67
--- NOTE | 2016-11-24 23:29 | General Progress Note ---
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 given exam, xrays, and prior abd surgeries (less likely ileus) - Facial cellulitis - Anemia - s/p PEG - a fib - DM - HN - Renal failure Recommendations - Continue TF trial - continue Reglan and Dulcolax for motility - d/c Reglan after 2 weeks to avoid penitentiary side effects - follow exam and labs - Renal f/u Subjective Allergies: Coded Allergies: AUBREY INHIBITORS (Verified Allergy, Unknown, ANGIOEDEMA, 09/17/12) Subjective tolerating TF no abd pain no vomiting Objective Last 24 Hour Vital Signs Date Time Temp Pulse Resp B/P Pulse Ox O2 Delivery O2 Flow Rate FiO2 11/24/16 21:54 61 116/67 11/24/16 20:00 97.2 61 18 116/67 98 Room Air 11/24/16 16:00 97.5 60 18 159/76 98 Room Air 11/24/16 12:59 97.0 62 20 145/78 98 Room Air 11/24/16 08:39 61 144/70 11/24/16 08:00 96.7 61 18 144/70 93 Room Air 11/24/16 04:00 97.2 63 18 157/84 96 Room Air 11/24/16 00:00 97.3 61 18 163/83 96 Room Air Intake and Output 11/23/16 11/24/16 19:00 07:00 Intake Total 1640 ml 1071 ml Output Total 350 ml Balance 1290 ml 1071 ml Intake Free Water 100 ml IV Total 1300 ml 1071 ml Tube Feeding 240 ml Output Urine Total 350 ml # Voids 5 Laboratory Tests 11/24/16 06:10: Sodium Level 146H, Potassium Level 3.4, Chloride Level 108H, Carbon Dioxide Level 27, Anion Gap 11, Blood Urea Nitrogen 21, Creatinine 2.0H, Estimat Glomerular Filtration Rate , Glucose Level 91, Uric Acid 3.8, Calcium Level 8.3L , Phosphorus Level 2.9, Total Bilirubin 0.3, Aspartate Amino Transf (AST/SGOT) 16, Alanine Aminotransferase (ALT/SGPT) 6, Alkaline Phosphatase 58, Pro-B-Type Natriuretic Peptide 7899H, Total Protein 5.6L, Albumin 2.4L, Globulin 3.2, Albumin/Globulin Ratio 0.7L, Random Vancomycin Level 17.9 Height (Feet): 5 Height (Inches): 9.00 Weight (Pounds): 170 Objective debilitated WM (+) neck scar CTA RR abd softer and less distended today, (+) GT no edema WILLIS AMADO Nov 24, 2016 23:29
[2016-11-25] VITALS: BP 137/75
[2016-11-25 04:00] VITALS: BP 153/91
[2016-11-25] MEDS: Metoclopramide 10mg/2ml Inj IVP SCH ×3 (05:36→21:33)
[2016-11-25] MEDS: NovoLOG Insulin Flexpen SUBQ SCH ×3 (05:44→17:38)
[2016-11-25] MEDS: D5NS 1,000 ML IV SCH ×2 (06:02→17:10)
[2016-11-25 09:00] VITALS: BP 124/77
[2016-11-25] MEDS: Valproic Acid 250mg/5ml Liquid GT SCH (09:47)
[2016-11-25] MEDS: Eliquis 2.5mg tablet ORAL SCH ×2 (09:48→21:33)
[2016-11-25] MEDS: Amiodarone 200mg tab GT SCH (09:48)
[2016-11-25] MEDS: Doxazosin 1mg Tab GT SCH ×2 (09:48→17:38)
[2016-11-25] MEDS: BuPROPion 75mg Tab GT SCH ×2 (09:48→21:33)
[2016-11-25] MEDS: Metoprolol 25mg tab GT SCH ×2 (09:49→21:33)
--- NOTE | 2016-11-25 10:40 | General Progress Note ---
Assessment/Plan Status: stable Status Narrative last Cr 2 Assessment/Plan Cr 0.9 in 11/15 went up to 2.7 in 11/21 Acute renal failure due to Vancomycin- Vanco trough on 11/17 over 54 , on 11/20 over 38 Hypothyroidism Plan: no labs today continue to Hold Vanco Monitor levels- antibiotics for renal dose adjustments Monitor renal parameters- Keep BP over 100 syst DC Garnett start cardura in [place] of [place] Subjective ROS Limited/Unobtainable: No Constitutional: Reports: malaise Allergies: Coded Allergies: AUBREY INHIBITORS (Verified Allergy, Unknown, ANGIOEDEMA, 09/17/12) Objective Last 24 Hour Vital Signs Date Time Temp Pulse Resp B/P Pulse Ox O2 Delivery O2 Flow Rate FiO2 11/25/16 09:49 69 124/77 11/25/16 09:00 97.3 18 124/77 96 Room Air 11/25/16 04:00 97.3 65 18 153/91 96 Room Air 11/25/16 00:00 97.4 60 18 137/75 93 Room Air 11/24/16 21:54 61 116/67 11/24/16 20:00 97.2 61 18 116/67 98 Room Air 11/24/16 16:00 97.5 60 18 159/76 98 Room Air 11/24/16 12:59 97.0 62 20 145/78 98 Room Air Intake and Output 11/24/16 11/25/16 19:00 07:00 Intake Total 600 ml 1370 ml Output Total 600 ml Balance 600 ml 770 ml Intake Free Water 100 ml 200 ml IV Total 500 ml 900 ml Tube Feeding 0 ml 270 ml Output Urine Total 600 ml # Voids 2 1 # Bowel Movements 1 1 Height (Feet): 5 Height (Inches): 9.00 Weight (Pounds): 170 General Appearance: no apparent distress Objective other physical exam not changed DARIN QUESADA Nov 25, 2016 10:40
--- NOTE | 2016-11-25 11:35 | Diagnostic Imaging Report ---
Indications: Persistent left facial swelling Technique: Continuous helical CT imaging of the face was performed with automatic exposure control on a Siemens sensation [address] scanner. Axial and coronal images were reconstructed at 3 mm slice thickness. No IV contrast administered per requesting physician's order, despite no contraindications listed in either submitted clinical data or tech note. CTDI volume(s): 28 mGy Total DLP: 568 mGy-cm Findings: Comparison: 11/13/2016 Again, lack of IV contrast limits evaluation. Subcutaneous soft tissue swelling and stranding with overlying skin thickening persist throughout the left malar and buccal regions, perhaps mildly increased. These changes again extend deep to the anterior surface of the left masseter muscle, which appears slightly enlarged compared to the right. Small tissue nodules compatible with lymph nodes are again noted scattered throughout the region. No obvious fluid or gas collection identified. Subtotal opacification of the left maxillary sinus again noted. No bone destruction identified. Patient is edentulous. Orbital anatomy remains intact. IMPRESSION: Persistent left facial cellulitis suggestion of left masseter muscle involvement/myositis, perhaps mildly worse than on previous exam. No overt evidence of associated abscess or osteomyelitis, with limitation as described. Persistent left maxillary sinusitis
[2016-11-25 12:00] VITALS: BP 97/65
--- NOTE | 2016-11-25 12:00 | General Progress Note ---
Assessment/Plan Problem List: (1) History of CVA (cerebrovascular accident) ICD Codes: Z86.73 - History of CVA (cerebrovascular accident) SNOMED: 132186463 (2) History of respiratory failure ICD Codes: Z87.09 - History of respiratory failure SNOMED: 511820945 (3) Dysphagia ICD Codes: R13.10 - Dysphagia SNOMED: 25705196 (4) PEG (percutaneous endoscopic gastrostomy) adjustment/replacement/removal ICD Codes: Z43.1 - Encounter for attention to gastrostomy SNOMED: 866538473 (5) Cellulitis and abscess of face ICD Codes: L03.211 - Cellulitis of face; L02.01 - Cutaneous abscess of face SNOMED: 972798482 (6) Swelling of left side of face ICD Codes: R22.0 - Localized swelling, mass and lump, head SNOMED: 900777291 (7) Diabetes ICD Codes: E11.9 - Diabetes SNOMED: 89325449 (8) HTN (hypertension) ICD Codes: I10 - HTN (hypertension) SNOMED: 27728828 (9) Sepsis ICD Codes: A41.9 - Sepsis SNOMED: 02774591 (10) Thyroid mass of unclear etiology ICD Codes: E07.89 - Other specified disorders of thyroid SNOMED: 233251312 Status: progressing Assessment/Plan cellulitis afebrile vitals stable ileus treatment per gi reviwed chart and labs Subjective ROS Limited/Unobtainable: Yes Allergies: Coded Allergies: AUBREY INHIBITORS (Verified Allergy, Unknown, ANGIOEDEMA, 09/17/12) Objective Last 24 Hour Vital Signs Date Time Temp Pulse Resp B/P Pulse Ox O2 Delivery O2 Flow Rate FiO2 11/25/16 09:49 69 124/77 11/25/16 09:00 97.3 18 124/77 96 Room Air 11/25/16 04:00 97.3 65 18 153/91 96 Room Air 11/25/16 00:00 97.4 60 18 137/75 93 Room Air 11/24/16 21:54 61 116/67 11/24/16 20:00 97.2 61 18 116/67 98 Room Air 11/24/16 16:00 97.5 60 18 159/76 98 Room Air 11/24/16 12:59 97.0 62 20 145/78 98 Room Air Intake and Output 11/24/16 11/25/16 19:00 07:00 Intake Total 600 ml 1370 ml Output Total 600 ml Balance 600 ml 770 ml Intake Free Water 100 ml 200 ml IV Total 500 ml 900 ml Tube Feeding 0 ml 270 ml Output Urine Total 600 ml # Voids 2 1 # Bowel Movements 1 1 Height (Feet): 5 Height (Inches): 9.00 Weight (Pounds): 170 General Appearance: confused Cardiovascular: normal rate Respiratory/Chest: lungs clear Abdomen: soft Laina Pereira MD Nov 25, 2016 11:59
--- NOTE | 2016-11-25 12:27 | General Progress Note ---
Assessment/Plan Problem List: (1) Hypothyroidism ICD Codes: E03.9 - Hypothyroidism, unspecified SNOMED: 30461418 (2) Swelling of left side of face ICD Codes: R22.0 - Localized swelling, mass and lump, head SNOMED: 393059889 (3) Cellulitis and abscess of face ICD Codes: L03.211 - Cellulitis of face; L02.01 - Cutaneous abscess of face SNOMED: 713480188 (4) PEG (percutaneous endoscopic gastrostomy) adjustment/replacement/removal ICD Codes: Z43.1 - Encounter for attention to gastrostomy SNOMED: 885906045 (5) Dysphagia ICD Codes: R13.10 - Dysphagia SNOMED: 13097064 (6) History of respiratory failure ICD Codes: Z87.09 - History of respiratory failure SNOMED: 495106670 (7) History of CVA (cerebrovascular accident) ICD Codes: Z86.73 - History of CVA (cerebrovascular accident) SNOMED: 318758930 (8) Thyroid mass of unclear etiology ICD Codes: E07.89 - Other specified disorders of thyroid SNOMED: 570182250 (9) Diabetes ICD Codes: E11.9 - Diabetes SNOMED: 63077049 Assessment/Plan thyroid mass s/p FNA - benign TSH elevated - continue Levothyroxine IV for 2 more days glucose values are well controlled continue blood glucose monitoring and Novolog coverage Subjective ROS Limited/Unobtainable: Yes Allergies: Coded Allergies: AUBREY INHIBITORS (Verified Allergy, Unknown, ANGIOEDEMA, 09/17/12) Subjective events noted interval notes reviewed Objective Last 24 Hour Vital Signs Date Time Temp Pulse Resp B/P Pulse Ox O2 Delivery O2 Flow Rate FiO2 11/25/16 09:49 69 124/77 11/25/16 09:00 97.3 18 124/77 96 Room Air 11/25/16 04:00 97.3 65 18 153/91 96 Room Air 11/25/16 00:00 97.4 60 18 137/75 93 Room Air 11/24/16 21:54 61 116/67 11/24/16 20:00 97.2 61 18 116/67 98 Room Air 11/24/16 16:00 97.5 60 18 159/76 98 Room Air 11/24/16 12:59 97.0 62 20 145/78 98 Room Air Intake and Output 11/24/16 11/25/16 19:00 07:00 Intake Total 600 ml 1370 ml Output Total 600 ml Balance 600 ml 770 ml Intake Free Water 100 ml 200 ml IV Total 500 ml 900 ml Tube Feeding 0 ml 270 ml Output Urine Total 600 ml # Voids 2 1 # Bowel Movements 1 1 Height (Feet): 5 Height (Inches): 9.00 Weight (Pounds): 170 General Appearance: no apparent distress EENT: pale conjunctivae Neck: normal alignment Cardiovascular: normal rate Respiratory/Chest: lungs clear Abdomen: normal bowel sounds Pelvis: normal external exam Objective Current Medications Medications (Trade) Dose Ordered Sig/Yousuf Route PRN Reason Start Time Stop Time Status Last Admin Dose Admin Acetaminophen (Tylenol) 650 mg Q4H PRN ORAL fever 11/12/16 03:34 12/12/16 03:33 Amiodarone HCl (Cordarone) 100 mg DAILY GT 11/12/16 09:00 12/12/16 08:59 11/23/16 08:35 Apixaban (Eliquis) 2.5 mg Q12HR ORAL 11/12/16 09:00 12/12/16 08:59 11/23/16 21:01 Bisacodyl (Dulcolax) 10 mg TWICE A DAY RECTAL 11/19/16 10:00 12/19/16 09:59 11/22/16 18:21 Bupropion HCl (Wellbutrin) 75 mg Q12HR GT 11/18/16 11:06 12/12/16 08:59 11/23/16 21:01 Dextrose (Dextrose 50%) STAT PRN IV Hypoglycemia 11/12/16 03:35 12/12/16 03:34 Dextrose/Sodium Chloride (D5ns) 1,000 ml @ 100 mls/hr Q10H IV 11/21/16 16:30 12/21/16 16:29 11/24/16 04:30 Doxazosin Mesylate (Cardura) 1 mg BID GT 11/23/16 18:00 12/23/16 17:59 11/23/16 18:24 Finasteride (Proscar) 5 mg DAILY GT 11/12/16 09:00 12/12/16 08:59 11/23/16 08:36 Insulin Aspart (NovoLOG) Q6HR SUBQ 11/14/16 18:00 12/14/16 17:59 11/24/16 00:55 Levothyroxine Sodium (Synthroid) 100 mcg DAILY IV 11/22/16 12:00 12/22/16 11:59 11/23/16 11:30 Metoclopramide HCl 5 mg 5 mg EVERY 8 HOURS IVP 11/21/16 14:00 12/21/16 13:59 11/24/16 05:13 Metoclopramide HCl (Reglan) 5 mg Q8H PRN IVP Nausea & Vomiting 11/21/16 16:37 12/16/16 14:44 Metoprolol Tartrate 25 mg 25 mg Q12HR GT 11/23/16 21:00 12/23/16 20:59 11/23/16 21:00 Ondansetron HCl (Zofran) 4 mg Q8H PRN IVP Nausea & Vomiting 11/19/16 21:15 12/19/16 21:14 Piperacillin Sod/ Tazobactam Sod/ Dextrose (Zosyn/D5W) 110 ml @ 27.5 mls/hr Q8HR IVPB 11/23/16 22:00 11/30/16 21:59 11/24/16 05:14 Polyethylene Glycol (Miralax) 17 gm HSPRN PRN GT Constipation 11/12/16 03:39 12/12/16 03:38 11/15/16 17:45 Valproic Acid (Depakene) 250 mg DAILY GT 11/12/16 09:00 12/12/16 08:59 11/23/16 08:35 Zolpidem Tartrate (Ambien) 5 mg HSPRN PRN GT Insomnia 11/14/16 17:24 12/12/16 03:33 11/24/16 00:34 Item Value Date Time Bedside Blood Glucose 85 mg/dl 11/24/16 0542 Bedside Blood Glucose 125 mg/dl H 11/24/16 0055 Bedside Blood Glucose 105 mg/dl 11/23/16 1738 Bedside Blood Glucose 104 mg/dl 11/23/16 1223 Bedside Blood Glucose 86 mg/dl 11/23/16 0600 Bedside Blood Glucose 103 mg/dl 11/23/16 0000 BETTY GERMAIN Nov 25, 2016 12:27
--- NOTE | 2016-11-25 12:57 | Diagnostic Imaging Report ---
Indication: Abdominal pain, abnormal liver function tests Technique: Watson-scale and duplex images of the upper abdomen were obtained Comparison: Reference made to CT abdomen pelvis 09/20/2017, renal ultrasound 11/21/2016 Findings: There are bilateral pleural effusions. There is trace ascites. Exam is limited, with limited visualization of the left hepatic lobe. Gallbladder is unremarkable, without stones nor pericholecystic fluid. There is mild gallbladder wall thickening Sonographic Burton's sign is negative. Common bile duct measures 3 mm in diameter. No intrahepatic biliary ductal dilatation. Liver demonstrates normal echogenicity, no focal abnormality. No liver surface nodularity demonstrated. Portal vein and hepatic veins are patent.. Pancreas is incompletely visualized due to overlying bowel gas, visualized portions are unremarkable. Spleen is unremarkable, normal in size. Left kidney measures 10.8 cm in length. Right kidney measures 11.9 cm length. Both kidneys demonstrate normal echogenicity. There is no hydronephrosis. No focal abnormality. . Non-aneurysmal abdominal aorta. Impression: Bilateral pleural effusions Trace ascites Negative for gallstones. There is mild gallbladder wall thickening, most likely related to whatever process is causing the pleural effusions and ascites. Acalculous acute cholecystitis not completely excludable however, and consideration should be given to nuclear medicine hepatobiliary scanning if there is high clinical suspicion Negative for dilated ducts No evidence of cirrhosis Normal size spleen Note limited views of the left hepatic lobe and pancreas
--- NOTE | 2016-11-25 14:42 | General Surgery Progress Note ---
General Surgery-Progress Note Subjective Symptoms: improved, BM Objective Last 24 Hour Vital Signs Date Time Temp Pulse Resp B/P Pulse Ox O2 Delivery O2 Flow Rate FiO2 11/25/16 12:00 97.3 61 18 97/65 96 Room Air 11/25/16 09:49 69 124/77 11/25/16 09:00 97.3 18 124/77 96 Room Air 11/25/16 04:00 97.3 65 18 153/91 96 Room Air 11/25/16 00:00 97.4 60 18 137/75 93 Room Air 11/24/16 21:54 61 116/67 11/24/16 20:00 97.2 61 18 116/67 98 Room Air 11/24/16 16:00 97.5 60 18 159/76 98 Room Air I&O Intake and Output 11/24/16 11/25/16 19:00 07:00 Intake Total 600 ml 1370 ml Output Total 600 ml Balance 600 ml 770 ml Intake Free Water 100 ml 200 ml IV Total 500 ml 900 ml Tube Feeding 0 ml 270 ml Output Urine Total 600 ml # Voids 2 1 # Bowel Movements 1 1 Respiratory: clear Abdomen: soft, flat, non-tender, present bowel sounds Extremities: no tenderness Assessment Additional Comments Ileus resolved Plan Additional Comments I will sign off Thank you AURELIA ROGERS Nov 25, 2016 14:42
--- NOTE | 2016-11-25 15:51 | Cardiac Electrophysiology PN ---
Assessment/Plan Status Narrative Technically difficult study due to poor acoustic windows and GI Tube blocking scan area. Apical views obtained only. Study quality precludes accurate assessment of regional wall motion. M-mode measurements of left ventricle not obtainable. Normal left ventricular chamber size, grossly systolic function and wall motion to extent visualized. Left ventricular ejection fraction estimated to be 55-60 %. Mild ventricular hypertrophy. No evidence of pericardial fat or effusion. All other cardiac chamber sizes are within normal limits. Aortic valve calcification with decreased cusp excursion. Moderately thickened mitral valve leaflets with normal excursion. Moderate mitral annulus and aortic root calcification. Pulmonic valve not visualized. Normal tricuspid valve structure. Subcostal views not obtainable. Assessment/Plan 1. Status post [facility] [place] permanent pacemaker implantation with normal function 2. PAF in sinus rhythm. Contique amiodarone 100 mg daily, metoprolol 25 bid and Eliquis 2.5 mg twice a day. 3. Hypertension. Continue metoprolol 25 bid and Cardura 2 bid. Echocardiogram EF 55% 4. Hypothyroidism, on Synthroid under management of Dr. Chairez. 5. Left facial cellulitis improving on iv ABx. 6. Dysphagia, status post PEG 7. Diabetes. 8. Thyroid mass. FNA of thyroid mass> benign DW RN Subjective Subjective Alert in NAD. Tolerating GT feeding. No chest pain or SOB.Had CT scan of face today. Objective Last 24 Hour Vital Signs Date Time Temp Pulse Resp B/P Pulse Ox O2 Delivery O2 Flow Rate FiO2 11/25/16 12:00 97.3 61 18 97/65 96 Room Air 11/25/16 09:49 69 124/77 11/25/16 09:00 97.3 18 124/77 96 Room Air 11/25/16 04:00 97.3 65 18 153/91 96 Room Air 11/25/16 00:00 97.4 60 18 137/75 93 Room Air 11/24/16 21:54 61 116/67 11/24/16 20:00 97.2 61 18 116/67 98 Room Air 11/24/16 16:00 97.5 60 18 159/76 98 Room Air Intake and Output 11/24/16 11/25/16 19:00 07:00 Intake Total 600 ml 1370 ml Output Total 600 ml Balance 600 ml 770 ml Intake Free Water 100 ml 200 ml IV Total 500 ml 900 ml Tube Feeding 0 ml 270 ml Output Urine Total 600 ml # Voids 2 1 # Bowel Movements 1 1 Labs Test 11/24/16 06:10 Sodium Level 146 mEQ/L (135-145) Potassium Level 3.4 mEQ/L (3.4-4.9) Chloride Level 108 mEQ/L (98-107) Carbon Dioxide Level 27 mEQ/L (20-30) Anion Gap 11 (5-15) Blood Urea Nitrogen 21 mg/dL (7-23) Creatinine 2.0 mg/dL (0.7-1.2) Estimat Glomerular Filtration Rate mL/min (>60) Glucose Level 91 mg/dL (74-106) Uric Acid 3.8 mg/dL (3.0-7.5) Calcium Level 8.3 mg/dL (8.6-10.2) Phosphorus Level 2.9 mg/dL (2.5-4.8) Total Bilirubin 0.3 mg/dL (0.0-1.2) Aspartate Amino Transf (AST/SGOT) 16 U/L (5-40) Alanine Aminotransferase (ALT/SGPT) 6 U/L (3-41) Alkaline Phosphatase 58 U/L (40-129) Pro-B-Type Natriuretic Peptide 7899 pg/mL (0-450) Total Protein 5.6 g/dL (6.6-8.7) Albumin 2.4 g/dL (3.5-5.2) Globulin 3.2 g/dL Albumin/Globulin Ratio 0.7 (1.0-2.7) Random Vancomycin Level 17.9 ug/mL Current Medications Medications (Trade) Dose Ordered Sig/Yousuf Route PRN Reason Start Time Stop Time Status Last Admin Dose Admin Acetaminophen (Tylenol) 650 mg Q4H PRN ORAL fever 11/12/16 03:34 12/12/16 03:33 Amiodarone HCl (Cordarone) 100 mg DAILY GT 11/12/16 09:00 12/12/16 08:59 11/25/16 09:48 Apixaban (Eliquis) 2.5 mg Q12HR ORAL 11/12/16 09:00 12/12/16 08:59 11/25/16 09:48 Bisacodyl (Dulcolax) 10 mg TWICE A DAY RECTAL 11/19/16 10:00 12/19/16 09:59 11/22/16 18:21 Bupropion HCl (Wellbutrin) 75 mg Q12HR GT 11/18/16 11:06 12/12/16 08:59 11/25/16 09:48 Dextrose (Dextrose 50%) STAT PRN IV Hypoglycemia 11/12/16 03:35 12/12/16 03:34 Dextrose/Sodium Chloride (D5ns) 1,000 ml @ 100 mls/hr Q10H IV 11/21/16 16:30 12/21/16 16:29 11/25/16 06:02 Doxazosin Mesylate (Cardura) 2 mg BID GT 11/24/16 18:00 12/24/16 17:59 11/25/16 09:48 Finasteride (Proscar) 5 mg DAILY GT 11/12/16 09:00 12/12/16 08:59 11/25/16 09:49 Insulin Aspart (NovoLOG) Q6HR SUBQ 11/14/16 18:00 12/14/16 17:59 11/24/16 23:37 Levothyroxine Sodium (Synthroid) 100 mcg DAILY IV 11/22/16 12:00 12/22/16 11:59 11/25/16 09:50 Metoclopramide HCl 5 mg 5 mg EVERY 8 HOURS IVP 11/21/16 14:00 12/21/16 13:59 11/25/16 14:38 Metoclopramide HCl (Reglan) 5 mg Q8H PRN IVP Nausea & Vomiting 11/21/16 16:37 12/16/16 14:44 Metoprolol Tartrate (Lopressor) 25 mg Q12HR GT 11/23/16 21:00 12/23/16 20:59 11/25/16 09:49 Ondansetron HCl (Zofran) 4 mg Q8H PRN IVP Nausea & Vomiting 11/19/16 21:15 12/19/16 21:14 Polyethylene Glycol (Miralax) 17 gm HSPRN PRN GT Constipation 11/12/16 03:39 12/12/16 03:38 11/15/16 17:45 Valproic Acid (Depakene) 250 mg DAILY GT 11/12/16 09:00 12/12/16 08:59 11/25/16 09:47 Zolpidem Tartrate (Ambien) 5 mg HSPRN PRN GT Insomnia 11/14/16 17:24 12/12/16 03:33 11/24/16 23:33 Objective Neck: No JVD. Cardiovascular: Regular rhythm.2/6 Systolic murmur LSB. Pacer left subclavian. Respiratory/Chest: lungs clear Abdomen: Soft. PEG intact. Extremities: no edema HILDA MEJIA Nov 25, 2016 15:51
--- NOTE | 2016-11-25 15:52 | General Progress Note ---
Assessment/Plan Assessment/Plan ASSESSMENT: 1. Macrocytosis potentially 2/2 liver disease, no e/o enlarged spleen or liver 2. Anemia secondary to chronic disease. 3. Right lower lobe thyroid nodule 19 x 11mm, s/p fna - benign 4. Diabetes mellitus. 5. Atrial fibrillation. 6. Cellulitis of the face. 7. Diabetes mellitus. 8. Hypertension. 9. Psychiatric history. 10. Afib on eliquis RECOMMENDATIONS: 1. Monitor counts. 2. Transfuse to hgb >7 3. US abd has been reviewed, nml sized spleen 4. Followup on ID, endo, Pulmonary recs, and ENT recs 5. Reviewed pathology of thyroid - benign 6. DVT ppx with eliquis. 7. GI ppx as needed. 8. Pain control. 9. Abx as needed. 10. staff Thank you, Jxa Alcaraz MD Subjective Constitutional: Reports: no symptoms HEENT: Reports: no symptoms Cardiovascular: Reports: no symptoms Respiratory: Reports: no symptoms Gastrointestinal/Abdominal: Reports: poor appetite Genitourinary: Reports: no symptoms Neurologic/Psychiatric: Reports: no symptoms Endocrine: Reports: no symptoms Hematologic/Lymphatic: Reports: anemia Allergies: Coded Allergies: AUBREY INHIBITORS (Verified Allergy, Unknown, ANGIOEDEMA, 09/17/12) Subjective stable, without bleeding, no night sweats, face has improved Objective Last 24 Hour Vital Signs Date Time Temp Pulse Resp B/P Pulse Ox O2 Delivery O2 Flow Rate FiO2 11/25/16 12:00 97.3 61 18 97/65 96 Room Air 11/25/16 09:49 69 124/77 11/25/16 09:00 97.3 18 124/77 96 Room Air 11/25/16 04:00 97.3 65 18 153/91 96 Room Air 11/25/16 00:00 97.4 60 18 137/75 93 Room Air 11/24/16 21:54 61 116/67 11/24/16 20:00 97.2 61 18 116/67 98 Room Air 11/24/16 16:00 97.5 60 18 159/76 98 Room Air Intake and Output 11/24/16 11/25/16 19:00 07:00 Intake Total 600 ml 1370 ml Output Total 600 ml Balance 600 ml 770 ml Intake Free Water 100 ml 200 ml IV Total 500 ml 900 ml Tube Feeding 0 ml 270 ml Output Urine Total 600 ml # Voids 2 1 # Bowel Movements 1 1 Height (Feet): 5 Height (Inches): 9.00 Weight (Pounds): 170 General Appearance: no apparent distress EENT: TMs normal Neck: supple Cardiovascular: regular rhythm Respiratory/Chest: normal breath sounds Abdomen: no organomegaly Genitourinary/Rectal: heme negative stool Extremities: non-tender Edema: 1+ Leg (L), 1+ Leg (R) Edema: mild edema Neurologic: alert Skin: warm/dry Jax Alcaraz Nov 25, 2016 15:52
[2016-11-25 16:00] VITALS: BP 145/78
--- NOTE | 2016-11-25 16:36 | General Progress Note ---
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 given exam, xrays, and prior abd surgeries (less likely ileus) - Facial cellulitis - Anemia - s/p PEG - a fib - DM - HN - Renal failure Recommendations - Continue TF trial - continue Reglan and Dulcolax for motility - d/c Reglan after 2 weeks to avoid intermediate side effects - follow exam and labs - Renal f/u Subjective Allergies: Coded Allergies: AUBREY INHIBITORS (Verified Allergy, Unknown, ANGIOEDEMA, 09/17/12) Subjective tolerating TF no abd pain no vomiting Objective Last 24 Hour Vital Signs Date Time Temp Pulse Resp B/P Pulse Ox O2 Delivery O2 Flow Rate FiO2 11/25/16 12:00 97.3 61 18 97/65 96 Room Air 11/25/16 09:49 69 124/77 11/25/16 09:00 97.3 18 124/77 96 Room Air 11/25/16 04:00 97.3 65 18 153/91 96 Room Air 11/25/16 00:00 97.4 60 18 137/75 93 Room Air 11/24/16 21:54 61 116/67 11/24/16 20:00 97.2 61 18 116/67 98 Room Air Intake and Output 11/24/16 11/25/16 19:00 07:00 Intake Total 600 ml 1370 ml Output Total 600 ml Balance 600 ml 770 ml Intake Free Water 100 ml 200 ml IV Total 500 ml 900 ml Tube Feeding 0 ml 270 ml Output Urine Total 600 ml # Voids 2 1 # Bowel Movements 1 1 Height (Feet): 5 Height (Inches): 9.00 Weight (Pounds): 170 Objective debilitated WM (+) neck scar CTA RR abd softer and less distended today, (+) GT no edema WILLIS AMADO Nov 25, 2016 16:36
--- NOTE | 2016-11-25 17:21 | Pulmonology Progress Note ---
Assessment/Plan Problems: (1) Respiratory insufficiency (2) Cellulitis (3) HTN (hypertension) (4) History of CVA (cerebrovascular accident) Assessment/Plan improving continue antibiotics biopsy results noted respiratory treatment titrate fio2 to sat of 92% Subjective ROS Limited/Unobtainable: No Constitutional: Reports: anorexia, fatigue Respiratory: Reports: dyspnea at rest, dyspnea on exertion, productive cough, shortness of breath, sputum, wheezing Allergies: Coded Allergies: AUBREY INHIBITORS (Verified Allergy, Unknown, ANGIOEDEMA, 09/17/12) Objective Last 24 Hour Vital Signs Date Time Temp Pulse Resp B/P Pulse Ox O2 Delivery O2 Flow Rate FiO2 11/25/16 16:00 97.3 66 20 145/78 97 Room Air 11/25/16 12:00 97.3 61 18 97/65 96 Room Air 11/25/16 09:49 69 124/77 11/25/16 09:00 97.3 18 124/77 96 Room Air 11/25/16 04:00 97.3 65 18 153/91 96 Room Air 11/25/16 00:00 97.4 60 18 137/75 93 Room Air 11/24/16 21:54 61 116/67 11/24/16 20:00 97.2 61 18 116/67 98 Room Air Intake and Output 11/24/16 11/25/16 19:00 07:00 Intake Total 600 ml 1370 ml Output Total 600 ml Balance 600 ml 770 ml Intake Free Water 100 ml 200 ml IV Total 500 ml 900 ml Tube Feeding 0 ml 270 ml Output Urine Total 600 ml # Voids 2 1 # Bowel Movements 1 1 General Appearance: no acute distress HEENT: normocephalic, atraumatic, PERRL Respiratory/Chest: chest wall non-tender, decreased breath sounds, accessory muscle use, crackles/rales, rhonchi Cardiovascular: normal peripheral pulses, normal rate, regular rhythm, no JVD Abdomen: normal bowel sounds, soft, non tender, no organomegaly, non distended Genitourinary: normal external genitalia Extremities: no cyanosis Skin: rash, lesions 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/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, responsive, disoriented, depressed affect Current Medications Medications (Trade) Dose Ordered Sig/Yousuf Route PRN Reason Start Time Stop Time Status Last Admin Dose Admin Acetaminophen (Tylenol) 650 mg Q4H PRN ORAL fever 11/12/16 03:34 12/12/16 03:33 Amiodarone HCl (Cordarone) 100 mg DAILY GT 11/12/16 09:00 12/12/16 08:59 11/25/16 09:48 Apixaban (Eliquis) 2.5 mg Q12HR ORAL 11/12/16 09:00 12/12/16 08:59 11/25/16 09:48 Bisacodyl (Dulcolax) 10 mg TWICE A DAY RECTAL 11/19/16 10:00 12/19/16 09:59 11/22/16 18:21 Bupropion HCl (Wellbutrin) 75 mg Q12HR GT 11/18/16 11:06 12/12/16 08:59 11/25/16 09:48 Dextrose (Dextrose 50%) STAT PRN IV Hypoglycemia 11/12/16 03:35 12/12/16 03:34 Dextrose/Sodium Chloride (D5ns) 1,000 ml @ 100 mls/hr Q10H IV 11/21/16 16:30 12/21/16 16:29 11/25/16 17:10 Doxazosin Mesylate (Cardura) 2 mg BID GT 11/24/16 18:00 12/24/16 17:59 11/25/16 09:48 Finasteride (Proscar) 5 mg DAILY GT 11/12/16 09:00 12/12/16 08:59 11/25/16 09:49 Insulin Aspart (NovoLOG) Q6HR SUBQ 11/14/16 18:00 12/14/16 17:59 11/24/16 23:37 Levothyroxine Sodium (Synthroid) 100 mcg DAILY IV 11/22/16 12:00 12/22/16 11:59 11/25/16 09:50 Metoclopramide HCl 5 mg 5 mg EVERY 8 HOURS IVP 11/21/16 14:00 12/21/16 13:59 11/25/16 14:38 Metoclopramide HCl (Reglan) 5 mg Q8H PRN IVP Nausea & Vomiting 11/21/16 16:37 12/16/16 14:44 Metoprolol Tartrate (Lopressor) 25 mg Q12HR GT 11/23/16 21:00 12/23/16 20:59 11/25/16 09:49 Ondansetron HCl (Zofran) 4 mg Q8H PRN IVP Nausea & Vomiting 11/19/16 21:15 12/19/16 21:14 Polyethylene Glycol (Miralax) 17 gm HSPRN PRN GT Constipation 11/12/16 03:39 12/12/16 03:38 11/15/16 17:45 Valproic Acid (Depakene) 250 mg DAILY GT 11/12/16 09:00 12/12/16 08:59 11/25/16 09:47 Zolpidem Tartrate (Ambien) 5 mg HSPRN PRN GT Insomnia 11/14/16 17:24 12/12/16 03:33 11/24/16 23:33 MARY SELF Nov 25, 2016 17:21
[2016-11-25] MEDS ORDERED: NS Irrig 1000ml ONE (17:51)
[2016-11-25] MEDS ORDERED: D5NS 1000ml IV ONE (17:51)
[2016-11-25 20:00] VITALS: BP 166/84
--- NOTE | 2016-11-25 21:20 | Infectious Diseases Prog Note ---
Assessment/Plan Problems: (1) Swelling of left side of face Assessment & Plan: received 15 days of zosyn and vancomycin empirically to treat cellulitis of the face , had repeated CT scan of the maxillary area which didn't show any deep abscess or fluids collection , but skin thickness and tissue infiltration deep to the masseter muscle with lymph nodes enlargement, most likely malignant process and NOT an infection , already recieved 15 days of wide spectrum antibiotics, with no significant improvement, recommend further evaluation by ENT to obtain deep biopsy and send for pathology and culture , will discuss with ENT, and primary (2) Cellulitis Assessment & Plan: of the neck ,improved , CT scan showed cellulitis and right lower thyroids pole mass S/P biopsy with pathology showed benign nodule . (3) Diabetes Assessment & Plan: recommend tight glycemic control to keep blood glucose between 80-120 (4) HTN (hypertension) Assessment & Plan: continue meds to keep SBP <140 (5) Thyroid mass of unclear etiology Assessment & Plan: had US and FNA biopsy , pathology showed benign nodule , endocrinology is following (6) Ileus Assessment & Plan: improved , no recurrent vomiting, no abdominal pain. had CT abdomen showed illeus , restarted on tube feeding as per general surgery Subjective Constitutional: Denies: anorexia, chills, drenching sweats, fatigue, fever, no symptoms, other HEENT: Reports: other - left facial swelling and redness Respiratory: Denies: dry cough, no symptoms, other, productive cough, shortness of breath Breasts: Denies: discharge, no symptoms, other, swelling, tenderness Cardiovascular: Denies: chest pain, dyspnea on exertion, no symptoms, other, palpitations Gastrointestinal/Abdominal: Denies: bloating, blood in stool, constipation, diarrhea, nausea, no symptoms, other, vomiting Genitourinary: Denies: dysuria, frequency, hematuria, no symptoms, nocturia, other Neurologic: Denies: confusion, headache, no symptoms, numbness, other, weakness Psychiatric: Denies: anxiety, depression, no symptoms, other Skin: Reports: other - redness Allergies: Coded Allergies: AUBREY INHIBITORS (Verified Allergy, Unknown, ANGIOEDEMA, 09/17/12) Objective Vital Signs Last 24 Hour Vital Signs Date Time Temp Pulse Resp B/P Pulse Ox O2 Delivery O2 Flow Rate FiO2 11/25/16 20:00 97.3 66 20 166/84 99 Room Air 2/14/17 16:00 97.3 66 20 145/78 97 Room Air 11/25/16 12:00 97.3 61 18 97/65 96 Room Air 11/25/16 09:49 69 124/77 11/25/16 09:00 97.3 18 124/77 96 Room Air 11/25/16 04:00 97.3 65 18 153/91 96 Room Air 11/25/16 00:00 97.4 60 18 137/75 93 Room Air 11/24/16 21:54 61 116/67 Height (Feet): 5 Height (Inches): 9.00 Weight (Pounds): 170 General Appearance: no acute distress, cachetic, other - left facial swelling with infiltration and enlarged lymph nodes HEENT: atraumatic, anicteric, mucous membranes moist, PERRL, supple, no JVD, other - left facial swelling and infiltration Respiratory/Chest: chest wall non-tender, lungs clear, normal breath sounds, no respiratory distress, no accessory muscle use Cardiovascular: normal peripheral pulses, normal rate, regular rhythm, no gallop/murmur, no JVD Abdomen: normal bowel sounds, soft, non tender, no organomegaly, non distended , no mass, no scars Extremities: no cyanosis, no clubbing Current Medications Medications (Trade) Dose Ordered Sig/Yousuf Route PRN Reason Start Time Stop Time Status Last Admin Dose Admin Acetaminophen (Tylenol) 650 mg Q4H PRN ORAL fever 11/12/16 03:34 12/12/16 03:33 Amiodarone HCl (Cordarone) 100 mg DAILY GT 11/12/16 09:00 12/12/16 08:59 11/25/16 09:48 Apixaban (Eliquis) 2.5 mg Q12HR ORAL 11/12/16 09:00 12/12/16 08:59 11/25/16 09:48 Bisacodyl (Dulcolax) 10 mg TWICE A DAY RECTAL 11/19/16 10:00 12/19/16 09:59 11/22/16 18:21 Bupropion HCl (Wellbutrin) 75 mg Q12HR GT 11/18/16 11:06 12/12/16 08:59 11/25/16 09:48 Dextrose (Dextrose 50%) STAT PRN IV Hypoglycemia 11/12/16 03:35 12/12/16 03:34 Dextrose/Sodium Chloride (D5ns) 1,000 ml @ 100 mls/hr Q10H IV 11/21/16 16:30 12/21/16 16:29 11/25/16 17:10 Doxazosin Mesylate (Cardura) 2 mg BID GT 11/24/16 18:00 12/24/16 17:59 11/25/16 17:38 Finasteride (Proscar) 5 mg DAILY GT 11/12/16 09:00 12/12/16 08:59 11/25/16 09:49 Insulin Aspart (NovoLOG) Q6HR SUBQ 11/14/16 18:00 12/14/16 17:59 11/25/16 17:38 Levothyroxine Sodium (Synthroid) 100 mcg DAILY IV 11/22/16 12:00 12/22/16 11:59 11/25/16 09:50 Metoclopramide HCl 5 mg 5 mg EVERY 8 HOURS IVP 11/21/16 14:00 12/21/16 13:59 11/25/16 14:38 Metoclopramide HCl (Reglan) 5 mg Q8H PRN IVP Nausea & Vomiting 11/21/16 16:37 12/16/16 14:44 Metoprolol Tartrate (Lopressor) 25 mg Q12HR GT 11/23/16 21:00 12/23/16 20:59 11/25/16 09:49 Ondansetron HCl (Zofran) 4 mg Q8H PRN IVP Nausea & Vomiting 11/19/16 21:15 12/19/16 21:14 Polyethylene Glycol (Miralax) 17 gm HSPRN PRN GT Constipation 11/12/16 03:39 12/12/16 03:38 11/15/16 17:45 Valproic Acid (Depakene) 250 mg DAILY GT 11/12/16 09:00 12/12/16 08:59 11/25/16 09:47 Zolpidem Tartrate (Ambien) 5 mg HSPRN PRN GT Insomnia 11/14/16 17:24 12/12/16 03:33 11/24/16 23:33 Aida Frederick M.D. Nov 25, 2016 21:20
[2016-11-26] VITALS: BP 119/61
[2016-11-26] MEDS: D5NS 1,000 ML IV SCH ×3 (03:07→23:43)
[2016-11-26 03:44] VITALS: BP 127/75
[2016-11-26] MEDS: NovoLOG Insulin Flexpen SUBQ SCH ×5 (06:00→23:39)
[2016-11-26] MEDS: Metoclopramide 10mg/2ml Inj IVP SCH ×3 (06:08→21:18)
[2016-11-26 07:49] LABS: ALANINE AMINOTRANSFERASE 7 U/L (3-41); ALBUMIN/GLOBULIN RATIO 0.7 (1.0-2.7); ANION GAP 10 (5-15); ASPARTATE AMINO TRANSFERASE 16 U/L (5-40); CALCIUM 8.5 mg/dL (8.6-10.2); CARBON DIOXIDE 28 mEQ/L (20-30); CHLORIDE 109 mEQ/L (98-107); CREATININE 1.8 mg/dL (0.7-1.2); CRP QUANT 2.4 mg/dL (< 0.5); HEMOLYSIS 9; MAGNESIUM 1.8 mg/dL (1.7-2.5); PHOSPHORUS 2.4 mg/dL (2.5-4.8); SODIUM 147 mEQ/L (135-145); TOTAL PROTEIN 5.8 g/dL (6.6-8.7); URIC ACID 3.6 mg/dL (3.0-7.5)
[2016-11-26 07:51] LABS: BASOPHILS % (AUTO) 1.2 % (0.0-2.0); EOSINOPHILS % (AUTO) 5.4 % (0.0-3.0); LYMPHOCYTES % (AUTO) 9.5 % (20.0-45.0); MEAN CORPUSCULAR HEMOGLOBIN 32.5 PG (27.0-31.0); MEAN CORPUSCULAR HGB CONC 31.1 G/DL (32.0-36.0); MEAN CORPUSCULAR VOLUME 104 FL (80-99); MEAN PLATELET VOLUME 8.3 FL (6.5-10.1); MONOCYTES % (AUTO) 8.8 % (1.0-10.0); NEUTROPHILS % (AUTO) 75.1 % (45.0-75.0); PLATELET COUNT 185 K/UL (150-450); RED BLOOD COUNT 3.31 M/UL (4.70-6.10); RED CELL DISTRIBUTION WIDTH 14.1 % (11.6-14.8); WHITE BLOOD COUNT 5.6 K/UL (4.8-10.8)
[2016-11-26] MEDS: Doxazosin 1mg Tab GT SCH ×2 (08:15→18:02)
[2016-11-26] MEDS: Amiodarone 200mg tab GT SCH (08:15)
[2016-11-26] MEDS: Metoprolol 25mg tab GT SCH ×2 (08:15→20:21)
[2016-11-26] MEDS: Valproic Acid 250mg/5ml Liquid GT SCH (08:15)
[2016-11-26] MEDS: BuPROPion 75mg Tab GT SCH ×2 (08:16→20:18)
[2016-11-26] MEDS: Eliquis 2.5mg tablet ORAL SCH ×2 (08:16→20:18)
[2016-11-26 08:36] VITALS: BP 168/93
[2016-11-26 09:05] VITALS: BP 134/74
--- NOTE | 2016-11-26 09:29 | General Progress Note ---
Assessment/Plan Problem List: (1) Hypothyroidism ICD Codes: E03.9 - Hypothyroidism, unspecified SNOMED: 43413760 (2) Swelling of left side of face ICD Codes: R22.0 - Localized swelling, mass and lump, head SNOMED: 200726356 (3) Cellulitis and abscess of face ICD Codes: L03.211 - Cellulitis of face; L02.01 - Cutaneous abscess of face SNOMED: 604250290 (4) PEG (percutaneous endoscopic gastrostomy) adjustment/replacement/removal ICD Codes: Z43.1 - Encounter for attention to gastrostomy SNOMED: 733821595 (5) Dysphagia ICD Codes: R13.10 - Dysphagia SNOMED: 45765390 (6) History of respiratory failure ICD Codes: Z87.09 - History of respiratory failure SNOMED: 816727021 (7) History of CVA (cerebrovascular accident) ICD Codes: Z86.73 - History of CVA (cerebrovascular accident) SNOMED: 231500448 (8) Thyroid mass of unclear etiology ICD Codes: E07.89 - Other specified disorders of thyroid SNOMED: 319105564 (9) Diabetes ICD Codes: E11.9 - Diabetes SNOMED: 45318761 Assessment/Plan thyroid mass s/p FNA - benign TSH elevated - continue Levothyroxine IV for 2 more days glucose values are well controlled continue blood glucose monitoring and Novolog coverage Subjective ROS Limited/Unobtainable: Yes Allergies: Coded Allergies: AUBREY INHIBITORS (Verified Allergy, Unknown, ANGIOEDEMA, 09/17/12) Subjective events noted interval notes reviewed Objective Last 24 Hour Vital Signs Date Time Temp Pulse Resp B/P Pulse Ox O2 Delivery O2 Flow Rate FiO2 11/26/16 08:36 98.4 65 20 168/93 95 Room Air 11/26/16 08:15 65 168/93 11/26/16 03:44 96.8 68 18 127/75 94 Room Air 11/26/16 00:00 97.0 60 18 119/61 95 Room Air 11/25/16 21:33 66 166/84 11/25/16 20:00 97.3 66 20 166/84 99 Room Air 11/25/16 16:00 97.3 66 20 145/78 97 Room Air 11/25/16 12:00 97.3 61 18 97/65 96 Room Air 11/25/16 09:49 69 124/77 Intake and Output 11/25/16 11/26/16 19:00 07:00 Intake Total 1230 ml 970 ml Output Total 1280 ml Balance 1230 ml -310 ml Intake Free Water 50 ml 50 ml IV Total 1000 ml 800 ml Tube Feeding 180 ml 120 ml Output Urine Total 1280 ml # Voids 2 # Bowel Movements 2 1 Laboratory Tests 11/26/16 05:45: White Blood Count 5.6, Red Blood Count 3.31L, Hemoglobin 10.7L, Hematocrit 34.5L , Mean Corpuscular Volume 104H, Mean Corpuscular Hemoglobin 32.5H, Mean Corpuscular Hemoglobin Concent 31.1L, Red Cell Distribution Width 14.1, Platelet Count 185, Mean Platelet Volume 8.3, Neutrophils (%) (Auto) 75.1H, Lymphocytes (%) (Auto) 9.5L, Monocytes (%) (Auto) 8.8, Eosinophils (%) (Auto) 5.4H, Basophils (%) (Auto) 1.2, Sodium Level 147H, Potassium Level 3.0L, Chloride Level 109H, Carbon Dioxide Level 28, Anion Gap 10, Blood Urea Nitrogen 19, Creatinine 1.8H, Estimat Glomerular Filtration Rate , Glucose Level 98, Uric Acid 3.6, Calcium Level 8.5L, Phosphorus Level 2.4L, Magnesium Level 1.8, Total Bilirubin 0.2, Aspartate Amino Transf (AST/SGOT) 16, Alanine Aminotransferase (ALT/SGPT) 7, Alkaline Phosphatase 71, C-Reactive Protein, Quantitative 2.4H, Pro-B-Type Natriuretic Peptide 6978H, Total Protein 5.8L, Albumin 2.5L, Globulin 3.3, Albumin/Globulin Ratio 0.7L, Random Vancomycin Level 13.8 Height (Feet): 5 Height (Inches): 9.00 Weight (Pounds): 170 General Appearance: no apparent distress Neck: normal alignment Cardiovascular: regular rhythm Respiratory/Chest: decreased breath sounds Abdomen: normal bowel sounds Objective Current Medications Medications (Trade) Dose Ordered Sig/Yousuf Route PRN Reason Start Time Stop Time Status Last Admin Dose Admin Acetaminophen (Tylenol) 650 mg Q4H PRN ORAL fever 11/12/16 03:34 12/12/16 03:33 Amiodarone HCl (Cordarone) 100 mg DAILY GT 11/12/16 09:00 3/3/17 08:59 11/23/16 08:35 Apixaban (Eliquis) 2.5 mg Q12HR ORAL 11/12/16 09:00 12/12/16 08:59 11/23/16 21:01 Bisacodyl (Dulcolax) 10 mg TWICE A DAY RECTAL 11/19/16 10:00 12/19/16 09:59 11/22/16 18:21 Bupropion HCl (Wellbutrin) 75 mg Q12HR GT 11/18/16 11:06 12/12/16 08:59 11/23/16 21:01 Dextrose (Dextrose 50%) STAT PRN IV Hypoglycemia 11/12/16 03:35 12/12/16 03:34 Dextrose/Sodium Chloride (D5ns) 1,000 ml @ 100 mls/hr Q10H IV 11/21/16 16:30 12/21/16 16:29 11/24/16 04:30 Doxazosin Mesylate (Cardura) 1 mg BID GT 11/23/16 18:00 12/23/16 17:59 11/23/16 18:24 Finasteride (Proscar) 5 mg DAILY GT 11/12/16 09:00 12/12/16 08:59 11/23/16 08:36 Insulin Aspart (NovoLOG) Q6HR SUBQ 11/14/16 18:00 12/14/16 17:59 11/24/16 00:55 Levothyroxine Sodium (Synthroid) 100 mcg DAILY IV 11/22/16 12:00 12/22/16 11:59 11/23/16 11:30 Metoclopramide HCl 5 mg 5 mg EVERY 8 HOURS IVP 11/21/16 14:00 12/21/16 13:59 11/24/16 05:13 Metoclopramide HCl (Reglan) 5 mg Q8H PRN IVP Nausea & Vomiting 11/21/16 16:37 12/16/16 14:44 Metoprolol Tartrate 25 mg 25 mg Q12HR GT 11/23/16 21:00 12/23/16 20:59 11/23/16 21:00 Ondansetron HCl (Zofran) 4 mg Q8H PRN IVP Nausea & Vomiting 11/19/16 21:15 12/19/16 21:14 Piperacillin Sod/ Tazobactam Sod/ Dextrose (Zosyn/D5W) 110 ml @ 27.5 mls/hr Q8HR IVPB 11/23/16 22:00 11/30/16 21:59 11/24/16 05:14 Polyethylene Glycol (Miralax) 17 gm HSPRN PRN GT Constipation 11/12/16 03:39 12/12/16 03:38 11/15/16 17:45 Valproic Acid (Depakene) 250 mg DAILY GT 11/12/16 09:00 12/12/16 08:59 11/23/16 08:35 Zolpidem Tartrate (Ambien) 5 mg HSPRN PRN GT Insomnia 11/14/16 17:24 12/12/16 03:33 11/24/16 00:34 Item Value Date Time Bedside Blood Glucose 85 mg/dl 11/24/16 0542 Bedside Blood Glucose 125 mg/dl H 11/24/16 0055 Bedside Blood Glucose 105 mg/dl 11/23/16 1738 Bedside Blood Glucose 104 mg/dl 11/23/16 1223 Bedside Blood Glucose 86 mg/dl 11/23/16 0600 Bedside Blood Glucose 103 mg/dl 11/23/16 0000 BETTY GERMAIN Nov 26, 2016 09:28
--- NOTE | 2016-11-26 11:04 | General Progress Note ---
Assessment/Plan Problem List: (1) History of CVA (cerebrovascular accident) ICD Codes: Z86.73 - History of CVA (cerebrovascular accident) SNOMED: 506875457 (2) History of respiratory failure ICD Codes: Z87.09 - History of respiratory failure SNOMED: 137990647 (3) Dysphagia ICD Codes: R13.10 - Dysphagia SNOMED: 88106150 (4) PEG (percutaneous endoscopic gastrostomy) adjustment/replacement/removal ICD Codes: Z43.1 - Encounter for attention to gastrostomy SNOMED: 216286050 (5) Cellulitis and abscess of face ICD Codes: L03.211 - Cellulitis of face; L02.01 - Cutaneous abscess of face SNOMED: 280981736 (6) Swelling of left side of face ICD Codes: R22.0 - Localized swelling, mass and lump, head SNOMED: 634010225 (7) Diabetes ICD Codes: E11.9 - Diabetes SNOMED: 61664637 (8) HTN (hypertension) ICD Codes: I10 - HTN (hypertension) SNOMED: 08009418 (9) Sepsis ICD Codes: A41.9 - Sepsis SNOMED: 44919311 (10) Thyroid mass of unclear etiology ICD Codes: E07.89 - Other specified disorders of thyroid SNOMED: 652925144 Status: progressing Assessment/Plan per id the facial edema and rash could be malignant so i asked dr mann to do skin biopsy and he agreed to do it today and give the results to dr belcher Subjective ROS Limited/Unobtainable: Yes Constitutional: Reports: no symptoms Allergies: Coded Allergies: AUBREY INHIBITORS (Verified Allergy, Unknown, ANGIOEDEMA, 09/17/12) Objective Last 24 Hour Vital Signs Date Time Temp Pulse Resp B/P Pulse Ox O2 Delivery O2 Flow Rate FiO2 11/26/16 09:05 61 134/74 11/26/16 08:36 98.4 65 20 168/93 95 Room Air 11/26/16 08:15 65 168/93 11/26/16 03:44 96.8 68 18 127/75 94 Room Air 11/26/16 00:00 97.0 60 18 119/61 95 Room Air 11/25/16 21:33 66 166/84 11/25/16 20:00 97.3 66 20 166/84 99 Room Air 11/25/16 16:00 97.3 66 20 145/78 97 Room Air 11/25/16 12:00 97.3 61 18 97/65 96 Room Air Intake and Output 11/25/16 11/26/16 19:00 07:00 Intake Total 1230 ml 970 ml Output Total 1280 ml Balance 1230 ml -310 ml Intake Free Water 50 ml 50 ml IV Total 1000 ml 800 ml Tube Feeding 180 ml 120 ml Output Urine Total 1280 ml # Voids 2 # Bowel Movements 2 1 Laboratory Tests 11/26/16 05:45: White Blood Count 5.6, Red Blood Count 3.31L, Hemoglobin 10.7L, Hematocrit 34.5L , Mean Corpuscular Volume 104H, Mean Corpuscular Hemoglobin 32.5H, Mean Corpuscular Hemoglobin Concent 31.1L, Red Cell Distribution Width 14.1, Platelet Count 185, Mean Platelet Volume 8.3, Neutrophils (%) (Auto) 75.1H, Lymphocytes (%) (Auto) 9.5L, Monocytes (%) (Auto) 8.8, Eosinophils (%) (Auto) 5.4H, Basophils (%) (Auto) 1.2, Sodium Level 147H, Potassium Level 3.0L, Chloride Level 109H, Carbon Dioxide Level 28, Anion Gap 10, Blood Urea Nitrogen 19, Creatinine 1.8H, Estimat Glomerular Filtration Rate , Glucose Level 98, Uric Acid 3.6, Calcium Level 8.5L, Phosphorus Level 2.4L, Magnesium Level 1.8, Total Bilirubin 0.2, Aspartate Amino Transf (AST/SGOT) 16, Alanine Aminotransferase (ALT/SGPT) 7, Alkaline Phosphatase 71, C-Reactive Protein, Quantitative 2.4H, Pro-B-Type Natriuretic Peptide 6978H, Total Protein 5.8L, Albumin 2.5L, Globulin 3.3, Albumin/Globulin Ratio 0.7L, Random Vancomycin Level 13.8 Height (Feet): 5 Height (Inches): 9.00 Weight (Pounds): 170 Neck: supple Cardiovascular: normal rate Respiratory/Chest: lungs clear Laina Pereira MD Nov 26, 2016 11:04
[2016-11-26 11:47] VITALS: BP 151/83
--- NOTE | 2016-11-26 13:26 | General Progress Note ---
Assessment/Plan Status: stable Status Narrative Cr 1.8 Vanco level 15 Assessment/Plan Cr 0.9 in 11/15 went up to 2.7 in 11/21 Acute renal failure due to Vancomycin- Vanco trough on 11/17 over 54 , on 11/20 over 38 Hypothyroidism Plan: K and Phos supplement Vanco per ID Monitor levels- antibiotics for renal dose adjustments Monitor renal parameters- Keep BP over 100 syst DC [place] start cardura in [place] Subjective ROS Limited/Unobtainable: No Allergies: Coded Allergies: AUBREY INHIBITORS (Verified Allergy, Unknown, ANGIOEDEMA, 09/17/12) Objective Last 24 Hour Vital Signs Date Time Temp Pulse Resp B/P Pulse Ox O2 Delivery O2 Flow Rate FiO2 11/26/16 11:47 98.0 60 20 151/83 95 Room Air 11/26/16 09:05 61 134/74 11/26/16 08:36 98.4 65 20 168/93 95 Room Air 11/26/16 08:15 65 168/93 11/26/16 03:44 96.8 68 18 127/75 94 Room Air 11/26/16 00:00 97.0 60 18 119/61 95 Room Air 11/25/16 21:33 66 166/84 11/25/16 20:00 97.3 66 20 166/84 99 Room Air 11/25/16 16:00 97.3 66 20 145/78 97 Room Air Intake and Output 11/25/16 11/26/16 19:00 07:00 Intake Total 1230 ml 970 ml Output Total 1280 ml Balance 1230 ml -310 ml Intake Free Water 50 ml 50 ml IV Total 1000 ml 800 ml Tube Feeding 180 ml 120 ml Output Urine Total 1280 ml # Voids 2 # Bowel Movements 2 1 Laboratory Tests 11/26/16 05:45: White Blood Count 5.6, Red Blood Count 3.31L, Hemoglobin 10.7L, Hematocrit 34.5L , Mean Corpuscular Volume 104H, Mean Corpuscular Hemoglobin 32.5H, Mean Corpuscular Hemoglobin Concent 31.1L, Red Cell Distribution Width 14.1, Platelet Count 185, Mean Platelet Volume 8.3, Neutrophils (%) (Auto) 75.1H, Lymphocytes (%) (Auto) 9.5L, Monocytes (%) (Auto) 8.8, Eosinophils (%) (Auto) 5.4H, Basophils (%) (Auto) 1.2, Sodium Level 147H, Potassium Level 3.0L, Chloride Level 109H, Carbon Dioxide Level 28, Anion Gap 10, Blood Urea Nitrogen 19, Creatinine 1.8H, Estimat Glomerular Filtration Rate , Glucose Level 98, Uric Acid 3.6, Calcium Level 8.5L, Phosphorus Level 2.4L, Magnesium Level 1.8, Total Bilirubin 0.2, Aspartate Amino Transf (AST/SGOT) 16, Alanine Aminotransferase (ALT/SGPT) 7, Alkaline Phosphatase 71, C-Reactive Protein, Quantitative 2.4H, Pro-B-Type Natriuretic Peptide 6978H, Total Protein 5.8L, Albumin 2.5L, Globulin 3.3, Albumin/Globulin Ratio 0.7L, Random Vancomycin Level 13.8 Height (Feet): 5 Height (Inches): 9.00 Weight (Pounds): 170 General Appearance: no apparent distress Cardiovascular: normal rate Respiratory/Chest: decreased breath sounds Abdomen: soft Objective other physical exam not changed DARIN QUESADA Nov 26, 2016 13:26
[2016-11-26] MEDS: Phospha 250 Neutral tab ORAL SCH ×2 (13:59→18:01)
[2016-11-26] MEDS: KCl 10% 40mEq/30ml liquid ORAL SCH ×2 (14:00→18:02)
[2016-11-26 16:00] VITALS: BP 129/76
--- NOTE | 2016-11-26 16:21 | Cardiac Electrophysiology PN ---
Assessment/Plan Status Narrative Technically difficult study due to poor acoustic windows and GI Tube blocking scan area. Apical views obtained only. Study quality precludes accurate assessment of regional wall motion. M-mode measurements of left ventricle not obtainable. Normal left ventricular chamber size, grossly systolic function and wall motion to extent visualized. Left ventricular ejection fraction estimated to be 55-60 %. Mild ventricular hypertrophy. No evidence of pericardial fat or effusion. All other cardiac chamber sizes are within normal limits. Aortic valve calcification with decreased cusp excursion. Moderately thickened mitral valve leaflets with normal excursion. Moderate mitral annulus and aortic root calcification. Pulmonic valve not visualized. Normal tricuspid valve structure. Subcostal views not obtainable. Assessment/Plan 1. Status post [facility] [place] permanent pacemaker implantation with normal function 2. PAF in sinus rhythm on amiodarone 100 mg daily, metoprolol 25 bid and Eliquis 2.5 mg twice a day. 3. Hypertension. Continue metoprolol 25 bid and Cardura 2 bid. Echocardiogram EF 55% 4. Hypothyroidism, on Synthroid 5. Left facial cellulitis improving 6. Dysphagia, status post PEG 7. Diabetes. 8. Thyroid mass. FNA of thyroid mass> benign DW RN Subjective Subjective Comfortable in NAD. No chest pain or SOB. Objective Last 24 Hour Vital Signs Date Time Temp Pulse Resp B/P Pulse Ox O2 Delivery O2 Flow Rate FiO2 11/26/16 16:00 97.5 60 18 129/76 98 Room Air 11/26/16 11:47 98.0 60 20 151/83 95 Room Air 11/26/16 09:05 61 134/74 11/26/16 08:36 98.4 65 20 168/93 95 Room Air 11/26/16 08:15 65 168/93 11/26/16 03:44 96.8 68 18 127/75 94 Room Air 11/26/16 00:00 97.0 60 18 119/61 95 Room Air 11/25/16 21:33 66 166/84 11/25/16 20:00 97.3 66 20 166/84 99 Room Air Intake and Output 11/25/16 11/26/16 19:00 07:00 Intake Total 1230 ml 970 ml Output Total 1280 ml Balance 1230 ml -310 ml Intake Free Water 50 ml 50 ml IV Total 1000 ml 800 ml Tube Feeding 180 ml 120 ml Output Urine Total 1280 ml # Voids 2 # Bowel Movements 2 1 Laboratory Tests Test 11/26/16 05:45 White Blood Count 5.6 K/UL (4.8-10.8) Red Blood Count 3.31 M/UL (4.70-6.10) L Hemoglobin 10.7 G/DL (14.2-18.0) L Hematocrit 34.5 % (42.0-52.0) L Mean Corpuscular Volume 104 FL (80-99) H Mean Corpuscular Hemoglobin 32.5 PG (27.0-31.0) H Mean Corpuscular Hemoglobin Concent 31.1 G/DL (32.0-36.0) L Red Cell Distribution Width 14.1 % (11.6-14.8) Platelet Count 185 K/UL (150-450) Mean Platelet Volume 8.3 FL (6.5-10.1) Neutrophils (%) (Auto) 75.1 % (45.0-75.0) H Lymphocytes (%) (Auto) 9.5 % (20.0-45.0) L Monocytes (%) (Auto) 8.8 % (1.0-10.0) Eosinophils (%) (Auto) 5.4 % (0.0-3.0) H Basophils (%) (Auto) 1.2 % (0.0-2.0) Sodium Level 147 mEQ/L (135-145) H Potassium Level 3.0 mEQ/L (3.4-4.9) L Chloride Level 109 mEQ/L (98-107) H Carbon Dioxide Level 28 mEQ/L (20-30) Anion Gap 10 (5-15) Blood Urea Nitrogen 19 mg/dL (7-23) Creatinine 1.8 mg/dL (0.7-1.2) H Estimat Glomerular Filtration Rate mL/min (>60) Glucose Level 98 mg/dL (74-106) Uric Acid 3.6 mg/dL (3.0-7.5) Calcium Level 8.5 mg/dL (8.6-10.2) L Phosphorus Level 2.4 mg/dL (2.5-4.8) L Magnesium Level 1.8 mg/dL (1.7-2.5) Total Bilirubin 0.2 mg/dL (0.0-1.2) Aspartate Amino Transf (AST/SGOT) 16 U/L (5-40) Alanine Aminotransferase (ALT/SGPT) 7 U/L (3-41) Alkaline Phosphatase 71 U/L (40-129) C-Reactive Protein, Quantitative 2.4 mg/dL (< 0.5) H Pro-B-Type Natriuretic Peptide 6978 pg/mL (0-450) H Total Protein 5.8 g/dL (6.6-8.7) L Albumin 2.5 g/dL (3.5-5.2) L Globulin 3.3 g/dL Albumin/Globulin Ratio 0.7 (1.0-2.7) L Random Vancomycin Level 13.8 ug/mL Objective Neck: No JVD. Cardiovascular: Regular rhythm.2/6 Systolic murmur LSB. Pacer left subclavian. Respiratory/Chest: lungs clear Abdomen: Soft. PEG intact. Extremities: no edema HILDA MEJIA Nov 26, 2016 16:21
--- NOTE | 2016-11-26 16:36 | Infectious Diseases Prog Note ---
Assessment/Plan Problems: (1) Swelling of left side of face Assessment & Plan: not significant improvement after 15 days of zosyn and vancomycin empirically to treat cellulitis of the face, had repeated CT scan of the maxillary area which didn't show any deep abscess or fluids collection , but skin thickness and tissue infiltration deep to the masseter muscle with lymph nodes enlargement, most likely malignant process and NOT an infection , already received 15 days of wide spectrum antibiotics, with no significant improvement, recommend further evaluation by ENT to obtain deep biopsy and send for pathology and culture , will discuss with ENT, and primary. all cultures remained negative. (2) Cellulitis Assessment & Plan: of the neck ,improved , CT scan showed cellulitis and right lower thyroids pole mass S/P biopsy with pathology showed benign nodule.endocrinology is following (3) Diabetes Assessment & Plan: recommend tight glycemic control to keep blood glucose between 80-120 (4) HTN (hypertension) Assessment & Plan: continue meds to keep SBP <140 (5) Thyroid mass of unclear etiology Assessment & Plan: had US and FNA biopsy , pathology showed benign nodule , endocrinology is following (6) Ileus Assessment & Plan: improved , no recurrent vomiting, no abdominal pain. had CT abdomen showed illeus , restarted on tube feeding as per general surgery Subjective HEENT: Reports: other - left facial swelling with redness and skin infiltration Skin: Reports: other - redness and swelling on the left cheek Allergies: Coded Allergies: AUBREY INHIBITORS (Verified Allergy, Unknown, ANGIOEDEMA, 09/17/12) All Systems: reviewed and negative except above Objective Vital Signs Last 24 Hour Vital Signs Date Time Temp Pulse Resp B/P Pulse Ox O2 Delivery O2 Flow Rate FiO2 11/26/16 16:00 97.5 60 18 129/76 98 Room Air 11/26/16 11:47 98.0 60 20 151/83 95 Room Air 11/26/16 09:05 61 134/74 11/26/16 08:36 98.4 65 20 168/93 95 Room Air 11/26/16 08:15 65 168/93 11/26/16 03:44 96.8 68 18 127/75 94 Room Air 11/26/16 00:00 97.0 60 18 119/61 95 Room Air 11/25/16 21:33 66 166/84 11/25/16 20:00 97.3 66 20 166/84 99 Room Air Height (Feet): 5 Height (Inches): 9.00 Weight (Pounds): 170 General Appearance: no acute distress, cachetic, other - left facial swelling and redness HEENT: atraumatic, anicteric, mucous membranes moist, PERRL, EOMI, pharynx normal, supple Respiratory/Chest: chest wall non-tender, lungs clear, normal breath sounds, no respiratory distress, no accessory muscle use Cardiovascular: normal peripheral pulses, normal rate, regular rhythm, no gallop/murmur, no JVD Abdomen: normal bowel sounds, soft, non tender, no organomegaly, non distended , no mass Extremities: no cyanosis, no clubbing Skin: no rash, other - infiltrated and thick on the left face Laboratory Tests Test 11/26/16 05:45 White Blood Count 5.6 K/UL (4.8-10.8) Red Blood Count 3.31 M/UL (4.70-6.10) L Hemoglobin 10.7 G/DL (14.2-18.0) L Hematocrit 34.5 % (42.0-52.0) L Mean Corpuscular Volume 104 FL (80-99) H Mean Corpuscular Hemoglobin 32.5 PG (27.0-31.0) H Mean Corpuscular Hemoglobin Concent 31.1 G/DL (32.0-36.0) L Red Cell Distribution Width 14.1 % (11.6-14.8) Platelet Count 185 K/UL (150-450) Mean Platelet Volume 8.3 FL (6.5-10.1) Neutrophils (%) (Auto) 75.1 % (45.0-75.0) H Lymphocytes (%) (Auto) 9.5 % (20.0-45.0) L Monocytes (%) (Auto) 8.8 % (1.0-10.0) Eosinophils (%) (Auto) 5.4 % (0.0-3.0) H Basophils (%) (Auto) 1.2 % (0.0-2.0) Sodium Level 147 mEQ/L (135-145) H Potassium Level 3.0 mEQ/L (3.4-4.9) L Chloride Level 109 mEQ/L (98-107) H Carbon Dioxide Level 28 mEQ/L (20-30) Anion Gap 10 (5-15) Blood Urea Nitrogen 19 mg/dL (7-23) Creatinine 1.8 mg/dL (0.7-1.2) H Estimat Glomerular Filtration Rate mL/min (>60) Glucose Level 98 mg/dL (74-106) Uric Acid 3.6 mg/dL (3.0-7.5) Calcium Level 8.5 mg/dL (8.6-10.2) L Phosphorus Level 2.4 mg/dL (2.5-4.8) L Magnesium Level 1.8 mg/dL (1.7-2.5) Total Bilirubin 0.2 mg/dL (0.0-1.2) Aspartate Amino Transf (AST/SGOT) 16 U/L (5-40) Alanine Aminotransferase (ALT/SGPT) 7 U/L (3-41) Alkaline Phosphatase 71 U/L (40-129) C-Reactive Protein, Quantitative 2.4 mg/dL (< 0.5) H Pro-B-Type Natriuretic Peptide 6978 pg/mL (0-450) H Total Protein 5.8 g/dL (6.6-8.7) L Albumin 2.5 g/dL (3.5-5.2) L Globulin 3.3 g/dL Albumin/Globulin Ratio 0.7 (1.0-2.7) L Random Vancomycin Level 13.8 ug/mL Current Medications Medications (Trade) Dose Ordered Sig/Yousuf Route PRN Reason Start Time Stop Time Status Last Admin Dose Admin Acetaminophen (Tylenol) 650 mg Q4H PRN ORAL fever 11/12/16 03:34 12/12/16 03:33 Amiodarone HCl (Cordarone) 100 mg DAILY GT 11/12/16 09:00 12/12/16 08:59 11/26/16 08:15 Apixaban (Eliquis) 2.5 mg Q12HR ORAL 11/12/16 09:00 12/12/16 08:59 11/26/16 08:16 Bisacodyl (Dulcolax) 10 mg TWICE A DAY RECTAL 11/19/16 10:00 12/19/16 09:59 11/22/16 18:21 Bupropion HCl (Wellbutrin) 75 mg Q12HR GT 11/18/16 11:06 12/12/16 08:59 11/26/16 08:16 Dextrose (Dextrose 50%) STAT PRN IV Hypoglycemia 11/12/16 03:35 12/12/16 03:34 Dextrose/Sodium Chloride (D5ns) 1,000 ml @ 100 mls/hr Q10H IV 11/21/16 16:30 12/21/16 16:29 11/26/16 14:59 Doxazosin Mesylate (Cardura) 2 mg BID GT 11/24/16 18:00 12/24/16 17:59 11/26/16 08:15 Finasteride (Proscar) 5 mg DAILY GT 11/12/16 09:00 12/12/16 08:59 11/26/16 08:16 Insulin Aspart (NovoLOG) Q6HR SUBQ 11/14/16 18:00 12/14/16 17:59 11/25/16 17:38 Levothyroxine Sodium (Synthroid) 100 mcg DAILY IV 11/22/16 12:00 12/22/16 11:59 11/26/16 08:45 Metoclopramide HCl 5 mg 5 mg EVERY 8 HOURS IVP 11/21/16 14:00 12/21/16 13:59 11/26/16 13:14 Metoclopramide HCl (Reglan) 5 mg Q8H PRN IVP Nausea & Vomiting 11/21/16 16:37 12/16/16 14:44 Metoprolol Tartrate (Lopressor) 25 mg Q12HR GT 11/23/16 21:00 12/23/16 20:59 11/26/16 08:15 Ondansetron HCl (Zofran) 4 mg Q8H PRN IVP Nausea & Vomiting 11/19/16 21:15 12/19/16 21:14 Phosphorus (Phospha 250 Neutral) 250 mg THREE TIMES A DAY ORAL 11/26/16 13:30 12/26/16 13:29 11/26/16 13:59 Polyethylene Glycol (Miralax) 17 gm HSPRN PRN GT Constipation 11/12/16 03:39 12/12/16 03:38 11/15/16 17:45 Potassium Chloride (KCl 10% 40mEq Oral solution) 40 meq TWICE A DAY ORAL 11/26/16 13:30 11/26/16 18:01 11/26/16 14:00 Valproic Acid (Depakene) 250 mg DAILY GT 11/12/16 09:00 12/12/16 08:59 11/26/16 08:15 Zolpidem Tartrate (Ambien) 5 mg HSPRN PRN GT Insomnia 11/14/16 17:24 12/12/16 03:33 11/24/16 23:33 Aida Frederick M.D. Nov 26, 2016 16:36
--- NOTE | 2016-11-26 18:19 | Pulmonology Progress Note ---
Assessment/Plan Problems: (1) Respiratory insufficiency (2) Cellulitis (3) HTN (hypertension) (4) History of CVA (cerebrovascular accident) Assessment/Plan improving continue antibiotics biopsy results noted respiratory treatment titrate fio2 to sat of 92% Subjective ROS Limited/Unobtainable: Yes Respiratory: Reports: dyspnea at rest, dyspnea on exertion, productive cough, shortness of breath, sputum Allergies: Coded Allergies: AUBREY INHIBITORS (Verified Allergy, Unknown, ANGIOEDEMA, 09/17/12) Objective Last 24 Hour Vital Signs Date Time Temp Pulse Resp B/P Pulse Ox O2 Delivery O2 Flow Rate FiO2 11/26/16 16:00 97.5 60 18 129/76 98 Room Air 11/26/16 11:47 98.0 60 20 151/83 95 Room Air 11/26/16 09:05 61 134/74 11/26/16 08:36 98.4 65 20 168/93 95 Room Air 11/26/16 08:15 65 168/93 11/26/16 03:44 96.8 68 18 127/75 94 Room Air 11/26/16 00:00 97.0 60 18 119/61 95 Room Air 11/25/16 21:33 66 166/84 11/25/16 20:00 97.3 66 20 166/84 99 Room Air Intake and Output 11/25/16 11/26/16 19:00 07:00 Intake Total 1230 ml 970 ml Output Total 1280 ml Balance 1230 ml -310 ml Intake Free Water 50 ml 50 ml IV Total 1000 ml 800 ml Tube Feeding 180 ml 120 ml Output Urine Total 1280 ml # Voids 2 # Bowel Movements 2 1 General Appearance: no acute distress HEENT: atraumatic, PERRL Respiratory/Chest: chest wall non-tender, decreased breath sounds, accessory muscle use, crackles/rales, rhonchi Cardiovascular: normal peripheral pulses, normal rate, regular rhythm Abdomen: normal bowel sounds, soft, non tender, no organomegaly Genitourinary: normal external genitalia Extremities: no cyanosis Skin: no rash, no lesions Neurologic/Psychiatric: tamale maker II-XII grossly normal, responsive, disoriented Laboratory Tests 11/26/16 05:45: White Blood Count 5.6, Red Blood Count 3.31L, Hemoglobin 10.7L, Hematocrit 34.5L , Mean Corpuscular Volume 104H, Mean Corpuscular Hemoglobin 32.5H, Mean Corpuscular Hemoglobin Concent 31.1L, Red Cell Distribution Width 14.1, Platelet Count 185, Mean Platelet Volume 8.3, Neutrophils (%) (Auto) 75.1H, Lymphocytes (%) (Auto) 9.5L, Monocytes (%) (Auto) 8.8, Eosinophils (%) (Auto) 5.4H, Basophils (%) (Auto) 1.2, Sodium Level 147H, Potassium Level 3.0L, Chloride Level 109H, Carbon Dioxide Level 28, Anion Gap 10, Blood Urea Nitrogen 19, Creatinine 1.8H, Estimat Glomerular Filtration Rate , Glucose Level 98, Uric Acid 3.6, Calcium Level 8.5L, Phosphorus Level 2.4L, Magnesium Level 1.8, Total Bilirubin 0.2, Aspartate Amino Transf (AST/SGOT) 16, Alanine Aminotransferase (ALT/SGPT) 7, Alkaline Phosphatase 71, C-Reactive Protein, Quantitative 2.4H, Pro-B-Type Natriuretic Peptide 6978H, Total Protein 5.8L, Albumin 2.5L, Globulin 3.3, Albumin/Globulin Ratio 0.7L, Random Vancomycin Level 13.8 Current Medications Medications (Trade) Dose Ordered Sig/Yousuf Route PRN Reason Start Time Stop Time Status Last Admin Dose Admin Acetaminophen (Tylenol) 650 mg Q4H PRN ORAL fever 11/12/16 03:34 12/12/16 03:33 Amiodarone HCl (Cordarone) 100 mg DAILY GT 11/12/16 09:00 12/12/16 08:59 11/26/16 08:15 Apixaban (Eliquis) 2.5 mg Q12HR ORAL 11/12/16 09:00 12/12/16 08:59 11/26/16 08:16 Bisacodyl (Dulcolax) 10 mg TWICE A DAY RECTAL 11/19/16 10:00 12/19/16 09:59 11/26/16 18:01 Bupropion HCl (Wellbutrin) 75 mg Q12HR GT 11/18/16 11:06 12/12/16 08:59 11/26/16 08:16 Dextrose (Dextrose 50%) STAT PRN IV Hypoglycemia 11/12/16 03:35 12/12/16 03:34 Dextrose/Sodium Chloride (D5ns) 1,000 ml @ 100 mls/hr Q10H IV 11/21/16 16:30 12/21/16 16:29 11/26/16 14:59 Doxazosin Mesylate (Cardura) 2 mg BID GT 11/24/16 18:00 12/24/16 17:59 11/26/16 18:02 Finasteride (Proscar) 5 mg DAILY GT 11/12/16 09:00 12/12/16 08:59 11/26/16 08:16 Insulin Aspart (NovoLOG) Q6HR SUBQ 11/14/16 18:00 12/14/16 17:59 11/26/16 18:03 Levothyroxine Sodium (Synthroid) 100 mcg DAILY IV 11/22/16 12:00 12/22/16 11:59 11/26/16 08:45 Metoclopramide HCl 5 mg 5 mg EVERY 8 HOURS IVP 11/21/16 14:00 12/21/16 13:59 11/26/16 13:14 Metoclopramide HCl (Reglan) 5 mg Q8H PRN IVP Nausea & Vomiting 11/21/16 16:37 12/16/16 14:44 Metoprolol Tartrate (Lopressor) 25 mg Q12HR GT 11/23/16 21:00 12/23/16 20:59 11/26/16 08:15 Ondansetron HCl (Zofran) 4 mg Q8H PRN IVP Nausea & Vomiting 11/19/16 21:15 12/19/16 21:14 Phosphorus (Phospha 250 Neutral) 250 mg THREE TIMES A DAY ORAL 11/26/16 13:30 12/26/16 13:29 11/26/16 18:01 Polyethylene Glycol (Miralax) 17 gm HSPRN PRN GT Constipation 11/12/16 03:39 12/12/16 03:38 11/15/16 17:45 Valproic Acid (Depakene) 250 mg DAILY GT 11/12/16 09:00 12/12/16 08:59 11/26/16 08:15 Zolpidem Tartrate (Ambien) 5 mg HSPRN PRN GT Insomnia 11/14/16 17:24 12/12/16 03:33 11/24/16 23:33 MARY SELF Nov 26, 2016 18:19
--- NOTE | 2016-11-26 18:20 | General Progress Note ---
Assessment/Plan Assessment/Plan ASSESSMENT: 1. Neck swelling/infiltration - awaiting biopsy 2. Anemia secondary to chronic disease. 3. Macrocytosis potentially 2/2 liver disease 4. Diabetes mellitus. 5. Atrial fibrillation. 6. Cellulitis of the face. 7. Diabetes mellitus. 8. Hypertension. 9. Psychiatric history. 10. Afib on eliquis RECOMMENDATIONS: 1. Monitor counts. 2. Transfuse to hgb >7 3. Pending biopsy of neck rule out cancer by ENT 4. Followup on ID, endo, Pulmonary recs, and ENT recs 5. Reviewed pathology of thyroid - benign 6. DVT ppx with eliquis. 7. GI ppx as needed. 8. Pain control. 9. staff Thank you, Jax Alcaraz MD Subjective Constitutional: Reports: no symptoms HEENT: Reports: no symptoms Cardiovascular: Reports: no symptoms Respiratory: Reports: no symptoms Gastrointestinal/Abdominal: Reports: no symptoms, poor fluid intake Genitourinary: Reports: no symptoms Neurologic/Psychiatric: Reports: no symptoms Endocrine: Reports: no symptoms Hematologic/Lymphatic: Reports: anemia Allergies: Coded Allergies: AUBREY INHIBITORS (Verified Allergy, Unknown, ANGIOEDEMA, 09/17/12) Subjective stable, without bleeding, no night sweats, face not much better, awaiting bx Objective Last 24 Hour Vital Signs Date Time Temp Pulse Resp B/P Pulse Ox O2 Delivery O2 Flow Rate FiO2 11/26/16 16:00 97.5 60 18 129/76 98 Room Air 11/26/16 11:47 98.0 60 20 151/83 95 Room Air 11/26/16 09:05 61 134/74 11/26/16 08:36 98.4 65 20 168/93 95 Room Air 11/26/16 08:15 65 168/93 11/26/16 03:44 96.8 68 18 127/75 94 Room Air 11/26/16 00:00 97.0 60 18 119/61 95 Room Air 11/25/16 21:33 66 166/84 11/25/16 20:00 97.3 66 20 166/84 99 Room Air Intake and Output 11/25/16 11/26/16 19:00 07:00 Intake Total 1230 ml 970 ml Output Total 1280 ml Balance 1230 ml -310 ml Intake Free Water 50 ml 50 ml IV Total 1000 ml 800 ml Tube Feeding 180 ml 120 ml Output Urine Total 1280 ml # Voids 2 # Bowel Movements 2 1 Laboratory Tests 11/26/16 05:45: White Blood Count 5.6, Red Blood Count 3.31L, Hemoglobin 10.7L, Hematocrit 34.5L , Mean Corpuscular Volume 104H, Mean Corpuscular Hemoglobin 32.5H, Mean Corpuscular Hemoglobin Concent 31.1L, Red Cell Distribution Width 14.1, Platelet Count 185, Mean Platelet Volume 8.3, Neutrophils (%) (Auto) 75.1H, Lymphocytes (%) (Auto) 9.5L, Monocytes (%) (Auto) 8.8, Eosinophils (%) (Auto) 5.4H, Basophils (%) (Auto) 1.2, Sodium Level 147H, Potassium Level 3.0L, Chloride Level 109H, Carbon Dioxide Level 28, Anion Gap 10, Blood Urea Nitrogen 19, Creatinine 1.8H, Estimat Glomerular Filtration Rate , Glucose Level 98, Uric Acid 3.6, Calcium Level 8.5L, Phosphorus Level 2.4L, Magnesium Level 1.8, Total Bilirubin 0.2, Aspartate Amino Transf (AST/SGOT) 16, Alanine Aminotransferase (ALT/SGPT) 7, Alkaline Phosphatase 71, C-Reactive Protein, Quantitative 2.4H, Pro-B-Type Natriuretic Peptide 6978H, Total Protein 5.8L, Albumin 2.5L, Globulin 3.3, Albumin/Globulin Ratio 0.7L, Random Vancomycin Level 13.8 Height (Feet): 5 Height (Inches): 9.00 Weight (Pounds): 170 General Appearance: no apparent distress EENT: TMs normal Neck: supple Cardiovascular: regular rhythm Respiratory/Chest: normal breath sounds Abdomen: normal bowel sounds Extremities: non-tender Edema: 1+ Leg (L), 1+ Leg (R) Edema: mild edema Neurologic: alert Skin: warm/dry Jax Alcaraz Nov 26, 2016 18:20
--- NOTE | 2016-11-26 20:26 | General Progress Note ---
Progress Note Progress Note Head and Neck Surgery/ENT S: pt seen and evaluated again per request of PMD and Heme/Onc. I have been asked to see pt again re bx to see if he has cancer. O: His facial swelling is about the same without erythema on the left side. Repeat CT scan shows some fullness masseter on left without specific mass and some inflammatory nodes-not suspicious. Neck: no palpable nodes. A: Overall, swelling about the same, reduced from initial eval on left face but no longer has erythema. He may have a met. cancer, since he had skin cancer removed from scalp in the past. P: 1. I do not suggest bx at this time, no specific spot to bx. 2. I do suggest pt have a PET scan as outpt. From my perspective he can be discharged back to custodial from which he came. If a suspicious node or area is found on PET scan, it can then be appropriately bx. 3. This was discussed with Dr. Kathleen sheikh on the phone, who concurred with above. CONI Christine Nov 26, 2016 20:26
[2016-11-27] VITALS (7 sets, daily range): BP systolic 134–155; BP diastolic 76–108
[2016-11-27] MEDS: Zolpidem 5mg tab GT PRN (00:28)
[2016-11-27] MEDS: NovoLOG Insulin Flexpen SUBQ SCH ×3 (05:23→17:47)
[2016-11-27] MEDS: Metoclopramide 10mg/2ml Inj IVP SCH (06:26)
--- NOTE | 2016-11-27 06:35 | General Progress Note ---
Assessment/Plan Problem List: (1) Hypothyroidism ICD Codes: E03.9 - Hypothyroidism, unspecified SNOMED: 63343231 (2) Swelling of left side of face ICD Codes: R22.0 - Localized swelling, mass and lump, head SNOMED: 814386486 (3) Cellulitis and abscess of face ICD Codes: L03.211 - Cellulitis of face; L02.01 - Cutaneous abscess of face SNOMED: 543570775 (4) PEG (percutaneous endoscopic gastrostomy) adjustment/replacement/removal ICD Codes: Z43.1 - Encounter for attention to gastrostomy SNOMED: 508160534 (5) Dysphagia ICD Codes: R13.10 - Dysphagia SNOMED: 35121216 (6) History of respiratory failure ICD Codes: Z87.09 - History of respiratory failure SNOMED: 503845048 (7) History of CVA (cerebrovascular accident) ICD Codes: Z86.73 - History of CVA (cerebrovascular accident) SNOMED: 204722948 (8) Thyroid mass of unclear etiology ICD Codes: E07.89 - Other specified disorders of thyroid SNOMED: 278836574 (9) Diabetes ICD Codes: E11.9 - Diabetes SNOMED: 46943351 Assessment/Plan thyroid mass s/p FNA - benign DC Levothyroxine IV - start Levothyroxine tablet 125 mcg daily repeat TSH is 4 weeks glucose values are well controlled continue blood glucose monitoring and Novolog coverage Subjective ROS Limited/Unobtainable: Yes Allergies: Coded Allergies: AUBREY INHIBITORS (Verified Allergy, Unknown, ANGIOEDEMA, 09/17/12) Subjective events noted interval notes reviewed Objective Last 24 Hour Vital Signs Date Time Temp Pulse Resp B/P Pulse Ox O2 Delivery O2 Flow Rate FiO2 11/27/16 04:00 96.4 70 18 142/81 90 Room Air 11/27/16 00:00 97.6 60 18 134/76 95 Room Air 11/26/16 20:21 60 129/76 11/26/16 16:00 97.5 60 18 129/76 98 Room Air 11/26/16 11:47 98.0 60 20 151/83 95 Room Air 11/26/16 09:05 61 134/74 11/26/16 08:36 98.4 65 20 168/93 95 Room Air 11/26/16 08:15 65 168/93 Intake and Output 11/26/16 11/27/16 19:00 07:00 Intake Total 1690 ml 1090 ml Output Total 200 ml 550 ml Balance 1490 ml 540 ml Intake Free Water 100 ml IV Total 1200 ml 1000 ml Tube Feeding 390 ml 90 ml Output Urine Total 200 ml 550 ml # Voids 2 # Bowel Movements 2 1 Height (Feet): 5 Height (Inches): 9.00 Weight (Pounds): 170 General Appearance: no apparent distress Neck: normal alignment Cardiovascular: regular rhythm Respiratory/Chest: decreased breath sounds Abdomen: normal bowel sounds Objective Current Medications Medications (Trade) Dose Ordered Sig/Yousuf Route PRN Reason Start Time Stop Time Status Last Admin Dose Admin Acetaminophen (Tylenol) 650 mg Q4H PRN ORAL fever 11/12/16 03:34 12/12/16 03:33 Amiodarone HCl (Cordarone) 100 mg DAILY GT 11/12/16 09:00 12/12/16 08:59 11/26/16 08:15 Apixaban (Eliquis) 2.5 mg Q12HR ORAL 11/12/16 09:00 12/12/16 08:59 11/26/16 20:18 Bisacodyl (Dulcolax) 10 mg TWICE A DAY RECTAL 11/19/16 10:00 12/19/16 09:59 11/26/16 18:01 Bupropion HCl (Wellbutrin) 75 mg Q12HR GT 11/18/16 11:06 12/12/16 08:59 11/26/16 20:18 Dextrose (Dextrose 50%) STAT PRN IV Hypoglycemia 11/12/16 03:35 12/12/16 03:34 Dextrose/Sodium Chloride (D5ns) 1,000 ml @ 100 mls/hr Q10H IV 11/21/16 16:30 12/21/16 16:29 11/26/16 23:43 Doxazosin Mesylate (Cardura) 2 mg BID GT 11/24/16 18:00 12/24/16 17:59 11/26/16 18:02 Finasteride (Proscar) 5 mg DAILY GT 11/12/16 09:00 12/12/16 08:59 11/26/16 08:16 Insulin Aspart (NovoLOG) Q6HR SUBQ 11/14/16 18:00 12/14/16 17:59 11/26/16 23:39 Levothyroxine Sodium (Synthroid) 100 mcg DAILY IV 11/22/16 12:00 12/22/16 11:59 11/26/16 08:45 Metoclopramide HCl 5 mg 5 mg EVERY 8 HOURS IVP 11/21/16 14:00 12/21/16 13:59 11/27/16 06:26 Metoclopramide HCl (Reglan) 5 mg Q8H PRN IVP Nausea & Vomiting 11/21/16 16:37 12/16/16 14:44 Metoprolol Tartrate (Lopressor) 25 mg Q12HR GT 11/23/16 21:00 12/23/16 20:59 11/26/16 20:21 Ondansetron HCl (Zofran) 4 mg Q8H PRN IVP Nausea & Vomiting 11/19/16 21:15 12/19/16 21:14 Phosphorus (Phospha 250 Neutral) 250 mg THREE TIMES A DAY ORAL 11/26/16 13:30 12/26/16 13:29 11/26/16 18:01 Polyethylene Glycol (Miralax) 17 gm HSPRN PRN GT Constipation 11/12/16 03:39 12/12/16 03:38 11/15/16 17:45 Valproic Acid (Depakene) 250 mg DAILY GT 11/12/16 09:00 12/12/16 08:59 11/26/16 08:15 Zolpidem Tartrate (Ambien) 5 mg HSPRN PRN GT Insomnia 11/14/16 17:24 12/12/16 03:33 11/27/16 00:28 Item Value Date Time Bedside Blood Glucose 90 mg/dl 11/27/16 0523 Bedside Blood Glucose 113 mg/dl 11/27/16 0000 Bedside Blood Glucose 114 mg/dl 11/26/16 1803 Bedside Blood Glucose 93 mg/dl 11/26/16 1126 Bedside Blood Glucose 101 mg/dl 11/26/16 0600 BETTY GERMAIN Nov 27, 2016 06:34
[2016-11-27] MEDS ORDERED: Levothyroxine 125mcg tab ORAL SCH (06:45)
[2016-11-27] MEDS: Valproic Acid 250mg/5ml Liquid GT SCH (08:31)
[2016-11-27] MEDS: Eliquis 2.5mg tablet ORAL SCH ×2 (08:31→20:18)
[2016-11-27] MEDS: BuPROPion 75mg Tab GT SCH ×2 (08:31→20:18)
[2016-11-27] MEDS: Amiodarone 200mg tab GT SCH (08:32)
[2016-11-27] MEDS: Doxazosin 1mg Tab GT SCH ×2 (08:32→17:27)
[2016-11-27] MEDS: Phospha 250 Neutral tab ORAL SCH ×3 (08:32→17:50)
--- NOTE | 2016-11-27 09:41 | General Progress Note ---
Assessment/Plan Status: stable Status Narrative no labs today Assessment/Plan Acute renal failure due to Vancomycin- Cr 0.9 in 11/15 went up to 2.7 in 11/21 now declining Vanco trough on 11/17 over 54 , on 11/20 over 38 declining Hypothyroidism Plan: no labs today- K and Phos supplement as needed Vanco per ID Monitor levels- antibiotics for renal dose adjustments Monitor renal parameters- Keep BP over 100 syst on cardura in [place] [facility] [place] Subjective ROS Limited/Unobtainable: No Allergies: Coded Allergies: AUBREY INHIBITORS (Verified Allergy, Unknown, ANGIOEDEMA, 09/17/12) Objective Last 24 Hour Vital Signs Date Time Temp Pulse Resp B/P Pulse Ox O2 Delivery O2 Flow Rate FiO2 11/27/16 08:19 98.4 74 20 155/80 93 Room Air 11/27/16 04:00 96.4 70 18 142/81 90 Room Air 11/27/16 00:00 97.6 60 18 134/76 95 Room Air 11/26/16 20:21 60 129/76 11/26/16 16:00 97.5 60 18 129/76 98 Room Air 11/26/16 11:47 98.0 60 20 151/83 95 Room Air Intake and Output 11/26/16 11/27/16 19:00 07:00 Intake Total 1690 ml 1090 ml Output Total 200 ml 550 ml Balance 1490 ml 540 ml Intake Free Water 100 ml IV Total 1200 ml 1000 ml Tube Feeding 390 ml 90 ml Output Urine Total 200 ml 550 ml # Voids 2 # Bowel Movements 2 1 Height (Feet): 5 Height (Inches): 9.00 Weight (Pounds): 170 General Appearance: no apparent distress Objective other physical exam not changed DARIN QUESADA Nov 27, 2016 09:41
[2016-11-27] MEDS ORDERED: Metoclopramide 10mg/2ml Inj IVP PRN (09:46)
[2016-11-27] MEDS: Metoprolol 25mg tab GT SCH ×2 (10:48→20:19)
[2016-11-27] MEDS ORDERED: D5NS 1000ml IV ONE ×3 (10:49→21:49)
[2016-11-27] MEDS ORDERED: Sterile Water Irrig 1000ml IRRIG ONE (10:49)
--- NOTE | 2016-11-27 11:10 | General Progress Note ---
Assessment/Plan Problem List: (1) History of CVA (cerebrovascular accident) ICD Codes: Z86.73 - History of CVA (cerebrovascular accident) SNOMED: 240150439 (2) History of respiratory failure ICD Codes: Z87.09 - History of respiratory failure SNOMED: 587587738 (3) Dysphagia ICD Codes: R13.10 - Dysphagia SNOMED: 66459486 (4) PEG (percutaneous endoscopic gastrostomy) adjustment/replacement/removal ICD Codes: Z43.1 - Encounter for attention to gastrostomy SNOMED: 533793805 (5) Cellulitis and abscess of face ICD Codes: L03.211 - Cellulitis of face; L02.01 - Cutaneous abscess of face SNOMED: 601299149 (6) Swelling of left side of face ICD Codes: R22.0 - Localized swelling, mass and lump, head SNOMED: 754623423 (7) Diabetes ICD Codes: E11.9 - Diabetes SNOMED: 34357220 (8) HTN (hypertension) ICD Codes: I10 - HTN (hypertension) SNOMED: 54732595 (9) Sepsis ICD Codes: A41.9 - Sepsis SNOMED: 64914333 (10) Thyroid mass of unclear etiology ICD Codes: E07.89 - Other specified disorders of thyroid SNOMED: 649196803 Status: progressing Assessment/Plan all the consultatnt agree w dc and f/u as outpatient r/o skin cancer dc to snf today Subjective ROS Limited/Unobtainable: Yes Allergies: Coded Allergies: AUBREY INHIBITORS (Verified Allergy, Unknown, ANGIOEDEMA, 09/17/12) Objective Last 24 Hour Vital Signs Date Time Temp Pulse Resp B/P Pulse Ox O2 Delivery O2 Flow Rate FiO2 11/27/16 10:48 74 155/80 11/27/16 08:19 98.4 74 20 155/80 93 Room Air 11/27/16 04:00 96.4 70 18 142/81 90 Room Air 11/27/16 00:00 97.6 60 18 134/76 95 Room Air 11/26/16 20:21 60 129/76 11/26/16 16:00 97.5 60 18 129/76 98 Room Air 11/26/16 11:47 98.0 60 20 151/83 95 Room Air Intake and Output 11/26/16 11/27/16 19:00 07:00 Intake Total 1690 ml 1090 ml Output Total 200 ml 550 ml Balance 1490 ml 540 ml Intake Free Water 100 ml IV Total 1200 ml 1000 ml Tube Feeding 390 ml 90 ml Output Urine Total 200 ml 550 ml # Voids 2 # Bowel Movements 2 1 Height (Feet): 5 Height (Inches): 9.00 Weight (Pounds): 170 General Appearance: confused Cardiovascular: normal rate Respiratory/Chest: lungs clear Abdomen: non tender Laina Pereira MD Nov 27, 2016 11:10
--- NOTE | 2016-11-27 11:22 | General Progress Note ---
Assessment/Plan Assessment/Plan Assessment - Facial cellulitis - resolved low grade PSBO - Anemia - s/p PEG - a fib - DM - HN - Renal failure Recommendations - Continue TF trial - continue Reglan and Dulcolax for motility - d/c Reglan after 2 weeks to avoid exterminator side effects - follow exam and labs - Renal f/u Subjective Allergies: Coded Allergies: AUBREY INHIBITORS (Verified Allergy, Unknown, ANGIOEDEMA, 09/17/12) Subjective tolerating TF no abd pain no vomiting Objective Last 24 Hour Vital Signs Date Time Temp Pulse Resp B/P Pulse Ox O2 Delivery O2 Flow Rate FiO2 11/27/16 10:48 74 155/80 11/27/16 08:19 98.4 74 20 155/80 93 Room Air 11/27/16 04:00 96.4 70 18 142/81 90 Room Air 11/27/16 00:00 97.6 60 18 134/76 95 Room Air 11/26/16 20:21 60 129/76 11/26/16 16:00 97.5 60 18 129/76 98 Room Air 11/26/16 11:47 98.0 60 20 151/83 95 Room Air Intake and Output 11/26/16 11/27/16 19:00 07:00 Intake Total 1690 ml 1090 ml Output Total 200 ml 550 ml Balance 1490 ml 540 ml Intake Free Water 100 ml IV Total 1200 ml 1000 ml Tube Feeding 390 ml 90 ml Output Urine Total 200 ml 550 ml # Voids 2 # Bowel Movements 2 1 Height (Feet): 5 Height (Inches): 9.00 Weight (Pounds): 170 Objective debilitated WM (+) neck scar CTA RR abd softer and less distended today, (+) GT no edema WILLIS AMADO Nov 27, 2016 11:22
[2016-11-27] MEDS: D5NS 1,000 ML IV SCH (13:19)
--- NOTE | 2016-11-27 14:57 | Cardiac Electrophysiology PN ---
Assessment/Plan Status Narrative Technically difficult study due to poor acoustic windows and GI Tube blocking scan area. Apical views obtained only. Study quality precludes accurate assessment of regional wall motion. M-mode measurements of left ventricle not obtainable. Normal left ventricular chamber size, grossly systolic function and wall motion to extent visualized. Left ventricular ejection fraction estimated to be 55-60 %. Mild ventricular hypertrophy. No evidence of pericardial fat or effusion. All other cardiac chamber sizes are within normal limits. Aortic valve calcification with decreased cusp excursion. Moderately thickened mitral valve leaflets with normal excursion. Moderate mitral annulus and aortic root calcification. Pulmonic valve not visualized. Normal tricuspid valve structure. Subcostal views not obtainable. Assessment/Plan 1. Status post [facility] [place] permanent pacemaker implantation with normal function 2. PAF in sinus rhythm on amiodarone 100 mg daily, metoprolol 25 bid and Eliquis 2.5 mg twice a day. 3. Hypertension. Continue metoprolol 25 bid and Cardura 2 bid. Echocardiogram EF 55% 4. Hypothyroidism, on Synthroid 5. Left facial cellulitis improving 6. Dysphagia, status post PEG 7. Diabetes. 8. Thyroid mass. FNA of thyroid mass> benign DW RN OK to DC from cardiac standpoint Subjective Subjective Comfortable in NAD. DC planning today. Objective Last 24 Hour Vital Signs Date Time Temp Pulse Resp B/P Pulse Ox O2 Delivery O2 Flow Rate FiO2 11/27/16 11:57 98.0 76 20 150/84 93 Room Air 11/27/16 10:48 74 155/80 11/27/16 08:19 98.4 74 20 155/80 93 Room Air 11/27/16 04:00 96.4 70 18 142/81 90 Room Air 11/27/16 00:00 97.6 60 18 134/76 95 Room Air 11/26/16 20:21 60 129/76 11/26/16 16:00 97.5 60 18 129/76 98 Room Air Intake and Output 11/26/16 11/27/16 19:00 07:00 Intake Total 1690 ml 1220 ml Output Total 200 ml 550 ml Balance 1490 ml 670 ml Intake Free Water 100 ml IV Total 1200 ml 1100 ml Tube Feeding 390 ml 120 ml Output Urine Total 200 ml 550 ml # Voids 2 # Bowel Movements 2 1 Current Medications Medications (Trade) Dose Ordered Sig/Yousuf Route PRN Reason Start Time Stop Time Status Last Admin Dose Admin Acetaminophen (Tylenol) 650 mg Q4H PRN ORAL fever 11/12/16 03:34 12/12/16 03:33 Amiodarone HCl (Cordarone) 100 mg DAILY GT 11/12/16 09:00 12/12/16 08:59 11/27/16 08:32 Apixaban (Eliquis) 2.5 mg Q12HR ORAL 11/12/16 09:00 12/12/16 08:59 11/27/16 08:31 Bisacodyl (Dulcolax) 10 mg TWICE A DAY RECTAL 11/19/16 10:00 12/19/16 09:59 11/26/16 18:01 Bupropion HCl (Wellbutrin) 75 mg Q12HR GT 11/18/16 11:06 12/12/16 08:59 11/27/16 08:31 Dextrose (Dextrose 50%) STAT PRN IV Hypoglycemia 11/12/16 03:35 12/12/16 03:34 Dextrose/Sodium Chloride (D5ns) 1,000 ml @ 100 mls/hr Q10H IV 11/21/16 16:30 12/21/16 16:29 11/27/16 13:19 Doxazosin Mesylate (Cardura) 2 mg BID GT 11/24/16 18:00 12/24/16 17:59 11/27/16 08:32 Finasteride (Proscar) 5 mg DAILY GT 11/12/16 09:00 12/12/16 08:59 11/27/16 08:31 Insulin Aspart (NovoLOG) Q6HR SUBQ 11/14/16 18:00 12/14/16 17:59 11/26/16 23:39 Levothyroxine Sodium (Synthroid) 125 mcg DAILY@0630 ORAL 11/27/16 06:45 12/27/16 06:44 11/27/16 06:50 Metoclopramide HCl (Reglan) 5 mg Q8H PRN IVP Nausea & Vomiting 11/27/16 09:46 12/16/16 14:44 Metoclopramide HCl (Reglan) 5 mg THREE TIMES A DAY ORAL 11/27/16 13:00 12/27/16 12:59 11/27/16 13:19 Metoprolol Tartrate (Lopressor) 25 mg Q12HR GT 11/23/16 21:00 12/23/16 20:59 11/27/16 10:48 Ondansetron HCl 4 mg 4 mg Q8H PRN IVP Nausea & Vomiting 11/19/16 21:15 12/19/16 21:14 Phosphorus (Phospha 250 Neutral) 250 mg THREE TIMES A DAY ORAL 11/26/16 13:30 12/26/16 13:29 11/27/16 13:19 Polyethylene Glycol (Miralax) 17 gm HSPRN PRN GT Constipation 11/12/16 03:39 12/12/16 03:38 11/15/16 17:45 Valproic Acid (Depakene) 250 mg DAILY GT 11/12/16 09:00 12/12/16 08:59 11/27/16 08:31 Zolpidem Tartrate (Ambien) 5 mg HSPRN PRN GT Insomnia 11/14/16 17:24 12/12/16 03:33 11/27/16 00:28 Objective Neck: No JVD. Cardiovascular: Regular rhythm.2/6 Systolic murmur LSB. Pacer left subclavian. Respiratory/Chest: lungs clear Abdomen: Soft. PEG intact. Extremities: no edema HILDA MEJIA Nov 27, 2016 14:57
--- NOTE | 2016-11-27 16:10 | General Progress Note ---
Assessment/Plan Assessment/Plan ASSESSMENT: 1. Neck swelling/infiltration - difficult site to biopsy, have discussed with ENT, recommend close followup and see in clinic q2mo and reaccess neck to see if lesion better v worse 2. Anemia secondary to chronic disease. 3. Macrocytosis potentially 2/2 liver disease 4. Diabetes mellitus. 5. Atrial fibrillation. 6. Cellulitis of the face. 7. Diabetes mellitus. 8. Hypertension. 9. Psychiatric history. 10. Afib on eliquis RECOMMENDATIONS: 1. Monitor counts. 2. Transfuse to hgb >7 3. At this time, given no skin findings, bx on hold 4. Followup on ID, endo, Pulmonary recs, and ENT recs 5. Reviewed pathology of thyroid - benign 6. DVT ppx with eliquis. 7. GI ppx as needed. 8. Pain control. 9. staff Thank you, Jax Alcaraz MD Subjective Constitutional: Reports: no symptoms HEENT: Reports: no symptoms Cardiovascular: Reports: no symptoms Respiratory: Reports: no symptoms Gastrointestinal/Abdominal: Reports: poor appetite Genitourinary: Reports: no symptoms Neurologic/Psychiatric: Reports: no symptoms Endocrine: Reports: no symptoms Hematologic/Lymphatic: Reports: anemia Allergies: Coded Allergies: AUBREY INHIBITORS (Verified Allergy, Unknown, ANGIOEDEMA, 09/17/12) Subjective stable, without bleeding, no night sweats, face not much better, pending placement Objective Last 24 Hour Vital Signs Date Time Temp Pulse Resp B/P Pulse Ox O2 Delivery O2 Flow Rate FiO2 11/27/16 16:08 98.7 76 20 149/108 96 Room Air 11/27/16 11:57 98.0 76 20 150/84 93 Room Air 11/27/16 10:48 74 155/80 11/27/16 08:19 98.4 74 20 155/80 93 Room Air 11/27/16 04:00 96.4 70 18 142/81 90 Room Air 11/27/16 00:00 97.6 60 18 134/76 95 Room Air 11/26/16 20:21 60 129/76 Intake and Output 11/26/16 11/27/16 19:00 07:00 Intake Total 1690 ml 1220 ml Output Total 200 ml 550 ml Balance 1490 ml 670 ml Intake Free Water 100 ml IV Total 1200 ml 1100 ml Tube Feeding 390 ml 120 ml Output Urine Total 200 ml 550 ml # Voids 2 # Bowel Movements 2 1 Height (Feet): 5 Height (Inches): 9.00 Weight (Pounds): 170 General Appearance: no apparent distress EENT: TMs normal Neck: supple Cardiovascular: regular rhythm Respiratory/Chest: lungs clear Abdomen: non tender Extremities: non-tender Edema: 1+ Leg (L), 1+ Leg (R) Edema: mild edema Neurologic: no motor/sensory deficits Skin: warm/dry Jax Alcaraz Nov 27, 2016 16:10
--- NOTE | 2016-11-27 18:07 | Infectious Diseases Prog Note ---
Assessment/Plan Problems: (1) Swelling of left side of face Assessment & Plan: not significant improvement after 15 days of zosyn and vancomycin empirically to treat cellulitis of the face, had repeated CT scan of the maxillary area which didn't show any deep abscess or fluids collection , but skin thickness and tissue infiltration deep to the masseter muscle with lymph nodes enlargement, most likely malignant process and NOT an infection , already received 15 days of wide spectrum antibiotics, with no significant improvement, recommend further evaluation by ENT to obtain lymph node biopsy and send for pathology and culture , discussed with ENT, and primary. all cultures remained negative. (2) Cellulitis Assessment & Plan: of the neck ,improved , CT scan showed cellulitis and right lower thyroids pole mass S/P biopsy with pathology showed benign nodule.endocrinology is following (3) Diabetes Assessment & Plan: recommend tight glycemic control to keep blood glucose between 80-120 (4) HTN (hypertension) Assessment & Plan: continue meds to keep SBP <140 (5) Thyroid mass of unclear etiology Assessment & Plan: had US and FNA biopsy , pathology showed benign nodule , endocrinology is following (6) Ileus Assessment & Plan: improved , no recurrent vomiting, no abdominal pain. had CT abdomen showed illeus , restarted on tube feeding as per general surgery Subjective HEENT: Reports: other - left facial swelling and redness Skin: Reports: other - red, and swallen on the left Allergies: Coded Allergies: AUBREY INHIBITORS (Verified Allergy, Unknown, ANGIOEDEMA, 09/17/12) Objective Vital Signs Last 24 Hour Vital Signs Date Time Temp Pulse Resp B/P Pulse Ox O2 Delivery O2 Flow Rate FiO2 11/27/16 16:08 98.7 76 20 149/108 96 Room Air 11/27/16 11:57 98.0 76 20 150/84 93 Room Air 11/27/16 10:48 74 155/80 11/27/16 08:19 98.4 74 20 155/80 93 Room Air 11/27/16 04:00 96.4 70 18 142/81 90 Room Air 11/27/16 00:00 97.6 60 18 134/76 95 Room Air 11/26/16 20:21 60 129/76 Height (Feet): 5 Height (Inches): 9.00 Weight (Pounds): 170 General Appearance: no acute distress, cachetic, other - left facial swelling and redness HEENT: atraumatic, anicteric, mucous membranes moist, PERRL, supple, no JVD, other - left facial swelling Respiratory/Chest: chest wall non-tender, lungs clear, normal breath sounds, no respiratory distress, no accessory muscle use Cardiovascular: normal peripheral pulses, normal rate, regular rhythm, no gallop/murmur Abdomen: normal bowel sounds, soft, non tender, no organomegaly, non distended , no mass Extremities: no cyanosis, no clubbing Skin: no rash, other - infiltrated and swallen on the left face with nodule Current Medications Medications (Trade) Dose Ordered Sig/Yousuf Route PRN Reason Start Time Stop Time Status Last Admin Dose Admin Acetaminophen (Tylenol) 650 mg Q4H PRN ORAL fever 11/12/16 03:34 12/12/16 03:33 Amiodarone HCl (Cordarone) 100 mg DAILY GT 11/12/16 09:00 12/12/16 08:59 11/27/16 08:32 Apixaban (Eliquis) 2.5 mg Q12HR ORAL 11/12/16 09:00 12/12/16 08:59 11/27/16 08:31 Bisacodyl (Dulcolax) 10 mg TWICE A DAY RECTAL 11/19/16 10:00 12/19/16 09:59 11/26/16 18:01 Bupropion HCl (Wellbutrin) 75 mg Q12HR GT 11/18/16 11:06 12/12/16 08:59 11/27/16 08:31 Dextrose (Dextrose 50%) STAT PRN IV Hypoglycemia 11/12/16 03:35 12/12/16 03:34 Dextrose/Sodium Chloride (D5ns) 1,000 ml @ 100 mls/hr Q10H IV 11/21/16 16:30 12/21/16 16:29 11/27/16 13:19 Doxazosin Mesylate (Cardura) 2 mg BID GT 11/24/16 18:00 12/24/16 17:59 11/27/16 08:32 Finasteride (Proscar) 5 mg DAILY GT 11/12/16 09:00 12/12/16 08:59 11/27/16 08:31 Insulin Aspart (NovoLOG) Q6HR SUBQ 11/14/16 18:00 12/14/16 17:59 11/26/16 23:39 Levothyroxine Sodium (Synthroid) 125 mcg DAILY@0630 ORAL 11/27/16 06:45 12/27/16 06:44 11/27/16 06:50 Metoclopramide HCl (Reglan) 5 mg Q8H PRN IVP Nausea & Vomiting 11/27/16 09:46 12/16/16 14:44 Metoclopramide HCl (Reglan) 5 mg THREE TIMES A DAY ORAL 11/27/16 13:00 12/27/16 12:59 11/27/16 17:50 Metoprolol Tartrate (Lopressor) 25 mg Q12HR GT 11/23/16 21:00 12/23/16 20:59 11/27/16 10:48 Ondansetron HCl 4 mg 4 mg Q8H PRN IVP Nausea & Vomiting 11/19/16 21:15 12/19/16 21:14 Phosphorus (Phospha 250 Neutral) 250 mg THREE TIMES A DAY ORAL 11/26/16 13:30 12/26/16 13:29 11/27/16 17:50 Polyethylene Glycol (Miralax) 17 gm HSPRN PRN GT Constipation 11/12/16 03:39 12/12/16 03:38 11/15/16 17:45 Valproic Acid (Depakene) 250 mg DAILY GT 11/12/16 09:00 12/12/16 08:59 11/27/16 08:31 Zolpidem Tartrate (Ambien) 5 mg HSPRN PRN GT Insomnia 11/14/16 17:24 12/12/16 03:33 11/27/16 00:28 Aida Frederick M.D. Nov 27, 2016 18:07
--- NOTE | 2016-11-27 22:17 | Pulmonology Progress Note ---
Assessment/Plan Problems: (1) Respiratory insufficiency (2) Cellulitis (3) HTN (hypertension) (4) History of CVA (cerebrovascular accident) Assessment/Plan improving continue antibiotics biopsy results noted respiratory treatment titrate fio2 to sat of 92% Subjective ROS Limited/Unobtainable: Yes Constitutional: Reports: anorexia, fatigue Respiratory: Reports: dyspnea at rest, dyspnea on exertion, productive cough, shortness of breath, sputum, wheezing Allergies: Coded Allergies: AUBREY INHIBITORS (Verified Allergy, Unknown, ANGIOEDEMA, 09/17/12) Objective Last 24 Hour Vital Signs Date Time Temp Pulse Resp B/P Pulse Ox O2 Delivery O2 Flow Rate FiO2 11/27/16 20:19 76 149/108 11/27/16 20:00 98.0 65 20 152/81 96 Room Air 11/27/16 16:08 98.7 76 20 149/108 96 Room Air 11/27/16 11:57 98.0 76 20 150/84 93 Room Air 11/27/16 10:48 74 155/80 11/27/16 08:19 98.4 74 20 155/80 93 Room Air 11/27/16 04:00 96.4 70 18 142/81 90 Room Air 11/27/16 00:00 97.6 60 18 134/76 95 Room Air Intake and Output 11/26/16 11/27/16 19:00 07:00 Intake Total 1690 ml 1220 ml Output Total 200 ml 550 ml Balance 1490 ml 670 ml Intake Free Water 100 ml IV Total 1200 ml 1100 ml Tube Feeding 390 ml 120 ml Output Urine Total 200 ml 550 ml # Voids 2 # Bowel Movements 2 1 General Appearance: no acute distress HEENT: normocephalic, atraumatic, PERRL Respiratory/Chest: chest wall non-tender, decreased breath sounds, accessory muscle use, crackles/rales, rhonchi Cardiovascular: normal peripheral pulses, normal rate, regular rhythm, no JVD Abdomen: normal bowel sounds, soft, non tender, no organomegaly, non distended Genitourinary: normal external genitalia Extremities: no cyanosis Skin: no rash, no lesions Neurologic/Psychiatric: ambulatory care II-XII grossly normal, responsive, disoriented MARY SELF Nov 27, 2016 22:17
--- NOTE | 2016-11-28 14:18 | Discharge Summary ---
Discharge Summary Hospital Course Date of Admission Nov 10, 2016 at 14:42 Date of Discharge Nov 27, 2016 at 21:50 Admitting Diagnosis cellulities left face HPI Darek Garcia is a 76 year old male who was admitted on Nov 10, 2016 at 14: 42 for Cellulitis Left Face Hospital Course [id number] Discharge Discharge Disposition Patient was discharged to SNF/Subacute Facility(03) Discharge Diagnoses: Alta Soares NP Nov 28, 2016 14:18
--- NOTE | 2016-12-09 15:08 | Discharge Summary 2 SIG ---
DATE OF ADMISSION: 11/10/2016 DATE OF DISCHARGE: 11/27/2016 CONSULTANTS: 1. Warren Montanez M.D. 2. Pepe Fuentes M.D. 3. Emile Huber M.D. 4. Ruel Macdonald M.D. 5. Nirmal Jaime M.D. 6. Rolf Garcia M.D. 7. Mickey Chairez M.D. 8. Ariel Alcaraz MD. 9. Aida Frederick M.D. BRIEF HOSPITAL COURSE: The patient is a 76-year-old male with a history of ENT cancer and dysphagia who presented to ED for left-sided facial swelling/cellulitis, possible throat CA/thyroid CA. The patient was having scratchy voice that is barely discernible. He was started empirically on IV Zosyn and vancomycin. Maxillofacial and neck CT was done, which showed nonspecific edema or cellulitis on the left face with swelling. He has left maxillary sinus disease and mastoid disease. Maxillofacial CT showed a stable left facial soft tissue swelling with no evidence of abscess. He was seen by Dr. Jaime. Abscess on the left face did not appear to be sinus because there is no breakthrough on the CT scan through the sinus cartilage. He also had episode of fall. He was seen by Dr. Chavez for evaluation of vomiting. Abdominal x-ray showed small and large-bowel loops suspicious for ileus. Percutaneous endoscopic gastrostomy tube was connected to suction, which suctioned large amount of bilious fluid. He was given Reglan and Dulcolax. He had a Gastrografin test, which showed slow transit of contrast. Findings represent ileus. On 11/20/2016, he underwent fiberoptic laryngoscopy with findings of mild inflammation with mild swelling on the left side. No vocal cords were able to move. He had a repeat CT scan showing some fullness on the massive tear on the left without specific mass and some inflammatory nodes, but not suspicious. He underwent ultrasound-guided thyroid biopsy. Ultrasound-guided percutaneous fine needle aspiration of the thyroid nodule. Biopsy report showed benign thyroid nodule. Overall, swelling was reduced compared to initial evaluation on the left face. No longer as erythematosus and recommend follow up with PET scan as outpatient with suspicious node and it can be appropriately biopsied at this time. He was then cleared to be discharged back to correction for close follow up every 2 months to reassess the neck lesion/abscess. FINAL DIAGNOSES: 1. Cellulitis and swelling of the left side of the face and neck. 2. Thyroid mass, unclear etiology. Pathology showed benign nodule. 3. Diabetes mellitus. 4. Hypertension. 6. Dysphagia on G-tube. 7. 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 8. Anemia secondary to chronic disease. 9. macrocytosis potentially secondary to liver disease. 10. Status post [place] permanent pacemaker implantation with normal function. 11. Paroxysmal atrial fibrillation. 12. Hypothyroidism. 13. Acute renal failure secondary to vancomycin. Laina Pereira M.D. I have been assigned to dictate discharge summary on this account and I was not involved in the patient's management. Alta Soares N.P. DR: HARMAN JOB#: [id number] CC: SANDEEP
--- NOTE | 2017-01-02 11:58 | Diagnostic Imaging Report ---
Darek Garcia [id number] Indication: Head pain, throat pain/swelling Technique: Precontrast spiral acquisitions obtained through the brain. IV nonionic contrast. Spiral acquisitions obtained through the brain. Multiplanar reconstructions were generated. Total dose length product 443 mGycm. CTDIvol(s) 70, 16, 1:15, 70 mGy. Radiation dose was minimized using automated exposure control Comparison: 08/31/2012 Findings: There is an osseous defect in the left frontal calvarium which is presumably postsurgical. This was not evident on the 2012 exam. There is age-related enlargement of the ventricles and extra-axial CSF spaces. This as progressed since the prior study. There is extensive periventricular deep white matter chronic ischemic change. No acute hemorrhage or edema. No mass effect or midline shift. No unusual contrast enhancement is demonstrated. There is left maxillary sinus disease again demonstrated. There is also bilateral mastoid opacification. There is left facial soft tissue swelling Impression: Postsurgical changes of the left frontal calvarium, new since 08/31/2012. Correlate with surgical history Chronic and age-related changes, as described Negative for acute intracranial bleed, mass effect, or contrast enhancing lesion Left maxillary sinus disease. Mastoid disease Left facial soft tissue swelling This agrees with the preliminary interpretation provided overnight by Dr. eBrger The CT scanner at [facility] is accredited by the [employer] and the scans are performed using protocols designed to limit radiation exposure to as low as reasonably achievable to attain images of sufficient resolution adequate for diagnostic evaluation.
== END 2016-11-27 21:50 | DRG 603 ==
LOC: EDBD 14:32 → EMR 14:40 → 2E 14:42 → EDBEDREQ 14:51 → 2E 11-11 01:08 → 4W 11-12 03:17
PROC: 0G9H3ZX Drainage of Right Thyroid Gland Lobe, Percutaneous Approach, Diagnostic (ICD-10-PCS; principal; 2016-11-13)
PROC: 0CJS8ZZ Inspection of Larynx, Via Natural or Artificial Opening Endoscopic (ICD-10-PCS; 2016-11-20)
DX: L03.211 Cellulitis of face (principal); N17.9 Acute kidney failure, unspecified; I95.9 Hypotension, unspecified; E11.22 Type 2 diabetes mellitus with diabetic chronic kidney disease; I13.0 Hypertensive heart and chronic kidney disease with heart failure and stage 1 through stage 4 chronic kidney disease, or unspecified chronic kidney disease; F03.90 Unspecified dementia, unspecified severity, without behavioral disturbance, psychotic disturbance, mood disturbance, and anxiety; I50.9 Heart failure, unspecified; K56.7 Ileus, unspecified; R13.10 Dysphagia, unspecified; I48.0 Paroxysmal atrial fibrillation; N18.9 Chronic kidney disease, unspecified; E04.1 Nontoxic single thyroid nodule; E03.9 Hypothyroidism, unspecified; K76.9 Liver disease, unspecified; N40.0 Benign prostatic hyperplasia without lower urinary tract symptoms; D63.8 Anemia in other chronic diseases classified elsewhere; I69.991 Dysphagia following unspecified cerebrovascular disease; Y92.230 Patient room in hospital as the place of occurrence of the external cause; Z95.0 Presence of cardiac pacemaker; T36.8X5A Adverse effect of other systemic antibiotics, initial encounter; Z87.891 Personal history of nicotine dependence; Z85.819 Personal history of malignant neoplasm of unspecified site of lip, oral cavity, and pharynx
CPT/HCPCS: 36415; 70470; 70486; 70491; 71010; 74000; 74176; 74250; 76536; 76700; 76775; 76942; 80048; 80053; 80061; 80202; 81003; 82150; 82330; 82550; 82962; 82977; 83036; 83605; 83735; 83880; 84100; 84439; 84443; 84481; 84550; 85007; 85025; 86140; 87040; 87045; 87081; 93005; 93306; C9399; J1815; J2405; J2765; S0077

== ENCOUNTER 2016-12-22 14:26 | Emergency (ER) | payer MEDICARE, MEDICAID ==
[~2016-12-22] VITALS: Ht 170.2 cm; Wt 63.5 kg
[~2016-12-22 14:26] MED LIST changes: -Vancomycin 1.5gm/D5W 300ml 325 ML IVPB ONE
--- NOTE | 2016-12-22 14:40 | Emergency Room Report ---
History of Present Illness General Chief Complaint: Malfunctioning Gastric Tube Source: Patient Present Illness HPI Patient presents with paramedics for complaints of feeding tube malfunction Patient himself, has some mild underlying dementia this does limit the history present illness significantly There was no reports of vomiting or diarrhea it was unclear exactly the malfunction of the feeding tube was also a question regarding possible cellulitis of the patient's feeding tube site No obvious documented fevers Allergies: Coded Allergies: AUBREY INHIBITORS (Verified Allergy, Unknown, ANGIOEDEMA, 09/17/12) Patient History Limited by: medical condition Past Medical History: see triage record Pertinent Family History: unable to obtain Reviewed Nursing Documentation: PMH: Agreed, PSxH: Agreed Nursing Documentation-PMH Hx Cardiac Problems: Yes - Pacemaker, A fib Hx Hypertension: Yes Hx Pacemaker: Yes Hx Asthma: Yes Hx COPD: Yes Hx Diabetes: Yes Hx Cancer: No Hx Gastrointestinal Problems: Yes - GERD Hx Dialysis: No Hx Cerebrovascular Accident: Yes Hx Seizures: No Hx Aphasia: Yes Hx Weakness: Yes Review of Systems All Other Systems: limited - Other than the ones mentioned in the history of present illness all others are reviewed however they do stay limited due to the patient's mental status Physical Exam Vital Signs Date Time Temp Pulse Resp B/P Pulse Ox O2 Delivery O2 Flow Rate FiO2 12/22/16 14:17 98.4 60 18 146/80 96 Room Air Sp02 EP Interpretation: reviewed, normal General Appearance: no apparent distress Head: normocephalic, atraumatic Eyes: bilateral eye EOMI, bilateral eye PERRL ENT: hearing grossly normal, normal pharynx Neck: full range of motion, thyroid normal Respiratory: lungs clear, normal breath sounds Cardiovascular #1: regular rate, rhythm, no edema, no gallop Gastrointestinal: non tender, soft, no mass, other - Patient's feeding tube in place there is pain at the distal aspect of the feeding tube, possible tear, also a very mild erythematous lesion at the medial aspect no obvious cellulitis Musculoskeletal: other - Moves upper extremity without focal deficit Neurologic: alert, responsive - GCS of 14 Skin: other - as above Lymphatic: no adenopathy Procedures Additional Procedure Procedure Narrative The previous feeding tube was deflated down to 20 mL And removed, upon removal there is a very small blood noted at the stoma no active hemorrhage otherwise area was cleansed and prepped A new 16 Romanian G-tube was placed through the stoma without any resistance KUB Gastrografin obtained for placement verification please defer to the x-ray report for that Area taped and covered appropriately Medical Decision Making Diagnostic Impression: Primary Impression: Malfunction of gastrostomy tube Additional Impressions: Encounter for care related to feeding tube feeding tube replacement ER Course Patient's feeding tube in place as noted above Patient tolerated the procedure well I do not appreciate any obvious cellulitis or other fluctuance or acute pathology Patient stable for discharge back to [facility] facility Other X-Ray Diagnostic Results Other X-Ray Diagnostic Results : EP Interpretation: Yes Findings: no fractures, no dislocation, no soft tissue swelling, other - No obvious extravasation, Gastrografin appears to be intraluminal Number of Views: 1 - KUB Last Vital Signs Date Time Temp Pulse Resp B/P Pulse Ox O2 Delivery O2 Flow Rate FiO2 12/22/16 14:17 98.4 60 18 146/80 96 Room Air Status: improved Disposition: XFER SNF Condition: Improved Additional Instructions: Patient is provided with the discharge instructions notified to follow up with primary doctor in the next 2-3 days otherwise return to the er with any worsening symptoms. Please note that this report is being documented using [employer] technology. This can lead to erroneous entry secondary to incorrect interpretation by the dictating instrument. LISA MAYBERRY D.O. Dec 22, 2016 14:40
[2016-12-22 15:04] VITALS: BP 146/80
[2016-12-22 15:48] VITALS: BP 146/80
--- NOTE | 2016-12-22 16:20 | Diagnostic Imaging Report ---
Indication: Of gastrostomy placement Technique: Supine view of the abdomen after injection of water-soluble contrast into gastrostomy Comparison: none Findings: Contrast opacifies the stomach. No contrast extravasation is demonstrated. The bowel gas pattern is unremarkable. Cardiac pacemaker wires are noted Impression: Satisfactory position of gastrostomy tube
== END 2016-12-22 15:49 ==
LOC: EDBD 14:26 → EMR 14:55
DX: K94.23 Gastrostomy malfunction (principal); E11.9 Type 2 diabetes mellitus without complications; K21.9 Gastro-esophageal reflux disease without esophagitis; Z86.73 Personal history of transient ischemic attack (TIA), and cerebral infarction without residual deficits; J44.9 Chronic obstructive pulmonary disease, unspecified; J45.909 Unspecified asthma, uncomplicated; I10 Essential (primary) hypertension; Z95.0 Presence of cardiac pacemaker; I48.91 Unspecified atrial fibrillation; F03.90 Unspecified dementia, unspecified severity, without behavioral disturbance, psychotic disturbance, mood disturbance, and anxiety; Z88.8 Allergy status to other drugs, medicaments and biological substances
CPT/HCPCS: 74000; 99283

== ENCOUNTER 2017-02-05 14:08 | Inpatient (IN) | payer MEDICARE, MEDICAID ==
[~2017-02-05] VITALS: Ht 172.7 cm; Wt 81.6 kg
[2017-02-05 15:03] VITALS: BP 99/57
[2017-02-05 15:15] LABS: ALANINE AMINOTRANSFERASE 8 U/L (3-41); ALBUMIN/GLOBULIN RATIO 0.8 (1.0-2.7); ANION GAP 13 (5-15); ASPARTATE AMINO TRANSFERASE 16 U/L (5-40); BASOPHILS % (AUTO) 0.7 % (0.0-2.0); CALCIUM 8.9 mg/dL (8.6-10.2); CARBON DIOXIDE 27 mEQ/L (20-30); CHLORIDE 94 mEQ/L (98-107); CREATININE 1.1 mg/dL (0.7-1.2); EOSINOPHILS % (AUTO) 3.5 % (0.0-3.0); HEMOLYSIS 2; LYMPHOCYTES % (AUTO) 13.2 % (20.0-45.0); MEAN CORPUSCULAR HEMOGLOBIN 33.4 PG (27.0-31.0); MEAN CORPUSCULAR HGB CONC 31.6 G/DL (32.0-36.0); MEAN CORPUSCULAR VOLUME 106 FL (80-99); MONOCYTES % (AUTO) 8.6 % (1.0-10.0); PLATELET COUNT 231 K/UL (150-450); POTASSIUM 5.1 mEQ/L (3.4-4.9); RED BLOOD COUNT 3.18 M/UL (4.70-6.10); RED CELL DISTRIBUTION WIDTH 14.7 % (11.6-14.8); SODIUM 134 mEQ/L (135-145); TOTAL PROTEIN 6.8 g/dL (6.6-8.7); WHITE BLOOD COUNT 4.6 K/UL (4.8-10.8)
[2017-02-05 17:14] VITALS: BP 110/54
[2017-02-05] MEDS ORDERED: WELLBUTRIN SR150 M1 GT (17:18)
[2017-02-05] MEDS ORDERED: NEXIUM40 MG GT (17:30)
[2017-02-05] MEDS ORDERED: LOPRESSOR5 MG/5 ML GT (17:30)
[2017-02-05] MEDS ORDERED: ELIQUIS2.5 MG GT (17:30)
[2017-02-05] MEDS ORDERED: FERROUS SULFAT500 G1 ORAL (17:30)
--- NOTE | 2017-02-05 17:30 | Emergency Room Report ---
History of Present Illness General Chief Complaint: Malfunctioning Gastric Tube Source: Patient, Medical Record, EMS Present Illness HPI 76-year-old male presnts to ED for evaluation. Patient brought in for G-tube replacement. There is a tear in the G-tube noticed today by skilled nursing staff. Patient brought in for replacement. Patient has history of dementia. Upon arrival patient showing no signs of distress. No chest pain or shortness of breath. No fevers or chills. BP low in triage. 90s/50s. No other aggravating or relieving factors. No other associated symptoms Allergies: Coded Allergies: AUBREY INHIBITORS (Verified Allergy, Unknown, ANGIOEDEMA, 09/17/12) Patient History Past Medical History: DM, HTN, AFib, COPD, CVA/TIA, psych hx Past Surgical History: none, pacemaker, other - gtube Pertinent Family History: none Social History: Denies: alcohol use, drug use, smoking Immunizations: UTD Reviewed Nursing Documentation: PMH: Agreed, PSxH: Agreed Nursing Documentation-PMH Hx Cardiac Problems: Yes - a fib,cellulitis of face Hx Hypertension: Yes Hx Pacemaker: Yes Hx Asthma: Yes Hx COPD: Yes Hx Diabetes: Yes Hx Cancer: No Hx Gastrointestinal Problems: Yes - G tube Hx Dialysis: No History Of Psychiatric Problem: Yes - depression Hx Neurological Problems: Yes Hx Cerebrovascular Accident: Yes Hx Seizures: No Hx Aphasia: Yes Hx Weakness: Yes Review of Systems All Other Systems: negative except mentioned in HPI Physical Exam Vital Signs Date Time Temp Pulse Resp B/P Pulse Ox O2 Delivery O2 Flow Rate FiO2 02/05/17 14:11 98.1 60 18 92/50 93 Room Air Sp02 EP Interpretation: reviewed, normal General Appearance: no apparent distress, GCS 15, non-toxic, other - deentia Head: normocephalic Eyes: bilateral eye PERRL, bilateral eye normal inspection ENT: normal ENT inspection Neck: normal inspection Respiratory: chest non-tender, lungs clear, normal breath sounds, speaking full sentences Cardiovascular #1: regular rate, rhythm, no edema Gastrointestinal: normal bowel sounds, non tender, soft, non-distended, no guarding, no rebound, other - tear in Gtube Rectal: deferred Genitourinary: no CVA tenderness Musculoskeletal: normal inspection Neurologic: alert, responsive, motor strength/tone normal, sensory intact, speech normal, other - dementia Psychiatric: other - dementia Skin: normal inspection Lymphatic: normal inspection Medical Decision Making Diagnostic Impression: Primary Impression: PEG (percutaneous endoscopic gastrostomy) adjustment/replacement/removal Additional Impression: Hypotension Qualified Codes: I95.9 - Hypotension, unspecified ER Course Hospital Course 76-year-old male presents to ED for tear in Gtube, hypotension Differential Diagnosis - sepsis, dehydration, malfunctioning Gtube Clinical course Patient placed on stretcher. After initial history and physical, I ordered labs , IV fluids. Labs reviewed-no leukocytosis, hemoglobin/hematocrit stable, Na 134, K 5.1, Cr ok Dr Goetz at bedside and replaced Gtube patient initially hypotensive. Improved with IV fluids Case discussed with Dr. Pereira and he agreed to accept the patient to his service for further care and support Diagnosis - PEG adjustment, replacement, hypotension Admitted to floor in serious condition Labs Test 02/05/17 14:40 White Blood Count 4.6 K/UL (4.8-10.8) Red Blood Count 3.18 M/UL (4.70-6.10) Hemoglobin 10.6 G/DL (14.2-18.0) Hematocrit 33.7 % (42.0-52.0) Mean Corpuscular Volume 106 FL (80-99) Mean Corpuscular Hemoglobin 33.4 PG (27.0-31.0) Mean Corpuscular Hemoglobin Concent 31.6 G/DL (32.0-36.0) Red Cell Distribution Width 14.7 % (11.6-14.8) Platelet Count 231 K/UL (150-450) Mean Platelet Volume 9.0 FL (6.5-10.1) Neutrophils (%) (Auto) 74.0 % (45.0-75.0) Lymphocytes (%) (Auto) 13.2 % (20.0-45.0) Monocytes (%) (Auto) 8.6 % (1.0-10.0) Eosinophils (%) (Auto) 3.5 % (0.0-3.0) Basophils (%) (Auto) 0.7 % (0.0-2.0) Sodium Level 134 mEQ/L (135-145) Potassium Level 5.1 mEQ/L (3.4-4.9) Chloride Level 94 mEQ/L (98-107) Carbon Dioxide Level 27 mEQ/L (20-30) Anion Gap 13 (5-15) Blood Urea Nitrogen 35 mg/dL (7-23) Creatinine 1.1 mg/dL (0.7-1.2) Estimat Glomerular Filtration Rate mL/min (>60) Glucose Level 89 mg/dL (74-106) Calcium Level 8.9 mg/dL (8.6-10.2) Total Bilirubin 0.3 mg/dL (0.0-1.2) Aspartate Amino Transf (AST/SGOT) 16 U/L (5-40) Alanine Aminotransferase (ALT/SGPT) 8 U/L (3-41) Alkaline Phosphatase 89 U/L (40-129) Total Protein 6.8 g/dL (6.6-8.7) Albumin 3.2 g/dL (3.5-5.2) Globulin 3.6 g/dL Albumin/Globulin Ratio 0.8 (1.0-2.7) Last Vital Signs Date Time Temp Pulse Resp B/P Pulse Ox O2 Delivery O2 Flow Rate FiO2 02/05/17 17:14 98.1 61 18 110/54 99 Room Air Status: improved Disposition: ADMITTED INPATIENT Condition: Serious Referrals: Laina Pereira MD (PCP) JOHN MCLAIN M.D. Feb 05, 2017 17:30
[2017-02-05 17:35] VITALS: BP 110/46
[2017-02-05 17:45] VITALS: BP_SYST 86; BP_DIAS 56; BP_DIAS 84
[2017-02-05 20:00] VITALS: BP 96/60
[2017-02-05 21:00] VITALS: BP 96/60
[2017-02-05] MEDS ORDERED: NS 250 ML IVPB ONE (22:45)
[2017-02-05 23:13] LABS: TROPONIN I < 0.30 ng/mL (<=0.30)
[2017-02-06] VITALS: BP 89/55
[2017-02-06 04:00] VITALS: BP 94/59
[2017-02-06 07:35] LABS: APPEARANCE,URINE CLEAR; KETONES,URINE 1+ (NEGATIVE); LEUKOCYTE ESTERASE ,URINE NEGATIVE (NEGATIVE); NITRITE,URINE NEGATIVE (NEGATIVE); PH,URINE 7 (4.5-8.0); PROTEIN,URINE NEGATIVE (NEGATIVE); UROBILINOGEN,URINE NORMAL MG/DL (0.0-1.0)
[2017-02-06 07:49] VITALS: BP 96/64
--- NOTE | 2017-02-06 07:59 | Infectious Diseases Prog Note ---
Assessment/Plan Problems: (1) Sepsis Assessment & Plan: e to G tube site infection with hypotension, will send blood culture, start vancomycin and cefepime (2) Hypotension Assessment & Plan: rule out sepsis, will send blood culture and start vancomycin with cefepime empirically (3) PEG (percutaneous endoscopic gastrostomy) adjustment/replacement/removal Assessment & Plan: with possible site infection, will start vancomycin and cefepime empirically (4) Malfunction of gastrostomy tube Assessment & Plan: recommend repleacement and GI consult (5) Cellulitis Assessment & Plan: of the sacrum, will start vancomycin and cefepime, recommend off loading Subjective Allergies: Coded Allergies: AUBREY INHIBITORS (Verified Allergy, Unknown, ANGIOEDEMA, 09/17/12) Objective Vital Signs Last 24 Hour Vital Signs Date Time Temp Pulse Resp B/P Pulse Ox O2 Delivery O2 Flow Rate FiO2 02/06/17 07:49 98.2 64 21 96/64 95 Room Air 02/06/17 04:00 97.1 70 20 94/59 95 Room Air 02/06/17 00:00 96.8 60 18 89/55 95 Room Air 02/05/17 21:00 96.3 59 20 96/60 95 Room Air 02/05/17 20:00 96.3 59 20 96/60 95 Room Air 02/05/17 18:01 98.1 61 18 110/54 99 Room Air 02/05/17 17:45 86/56 02/05/17 17:35 110/46 02/05/17 17:14 98.1 61 18 110/54 99 Room Air 02/05/17 15:03 98.1 60 18 99/57 99 Room Air 02/05/17 14:11 98.1 60 18 92/50 93 Room Air Height (Feet): 5 Height (Inches): 8.00 Weight (Pounds): 180 Laboratory Tests Test 02/05/17 14:40 02/05/17 21:55 02/06/17 05:30 White Blood Count 4.6 K/UL (4.8-10.8) L Red Blood Count 3.18 M/UL (4.70-6.10) L Hemoglobin 10.6 G/DL (14.2-18.0) L Hematocrit 33.7 % (42.0-52.0) L Mean Corpuscular Volume 106 FL (80-99) H Mean Corpuscular Hemoglobin 33.4 PG (27.0-31.0) H Mean Corpuscular Hemoglobin Concent 31.6 G/DL (32.0-36.0) L Red Cell Distribution Width 14.7 % (11.6-14.8) Platelet Count 231 K/UL (150-450) Mean Platelet Volume 9.0 FL (6.5-10.1) Neutrophils (%) (Auto) 74.0 % (45.0-75.0) Lymphocytes (%) (Auto) 13.2 % (20.0-45.0) L Monocytes (%) (Auto) 8.6 % (1.0-10.0) Eosinophils (%) (Auto) 3.5 % (0.0-3.0) H Basophils (%) (Auto) 0.7 % (0.0-2.0) Sodium Level 134 mEQ/L (135-145) L Potassium Level 5.1 mEQ/L (3.4-4.9) H Chloride Level 94 mEQ/L (98-107) L Carbon Dioxide Level 27 mEQ/L (20-30) Anion Gap 13 (5-15) Blood Urea Nitrogen 35 mg/dL (7-23) H Creatinine 1.1 mg/dL (0.7-1.2) Estimat Glomerular Filtration Rate mL/min (>60) Glucose Level 89 mg/dL (74-106) Calcium Level 8.9 mg/dL (8.6-10.2) Total Bilirubin 0.3 mg/dL (0.0-1.2) Aspartate Amino Transf (AST/SGOT) 16 U/L (5-40) Alanine Aminotransferase (ALT/SGPT) 8 U/L (3-41) Alkaline Phosphatase 89 U/L (40-129) Total Protein 6.8 g/dL (6.6-8.7) Albumin 3.2 g/dL (3.5-5.2) L Globulin 3.6 g/dL Albumin/Globulin Ratio 0.8 (1.0-2.7) L Troponin I < 0.30 ng/mL (<=0.30) Urine Color Pale yellow Urine Appearance Clear Urine pH 7 (4.5-8.0) Urine Specific [place] 1.005 (1.005-1.035) Urine Protein Negative (NEGATIVE) Urine Glucose (UA) Negative (NEGATIVE) Urine Ketones 1+ (NEGATIVE) H Urine Occult Blood Negative (NEGATIVE) Urine Nitrite Negative (NEGATIVE) Urine Bilirubin Negative (NEGATIVE) Urine Urobilinogen Normal MG/DL (0.0-1.0) Urine Leukocyte Esterase Negative (NEGATIVE) Current Medications Medications (Trade) Dose Ordered Sig/Yousuf Route PRN Reason Start Time Stop Time Status Last Admin Dose Admin Sodium Chloride (Sodium Chloride 1000ml bag) 1,000 ml @ 100 mls/hr Q10H IV 02/05/17 23:45 03/07/17 23:44 02/06/17 00:03 Aida Frederick M.D. Feb 06, 2017 07:59
[2017-02-06] MEDS: Cefepime HCl 1 GM in D5W 55 ML IVPB SCH ×2 (09:59→21:21)
--- NOTE | 2017-02-06 10:10 | Consultation ---
Consult Note Consult Note Asked to eval for electrolyte abnormalities and low BP patient examined- data reviewed 76-year-old male presnts to ED for evaluation. Patient brought in for G-tube replacement. There is a tear in the G-tube noticed today by [facility] staff. Patient brought in for replacement. Patient has history of dementia. Upon arrival patient showing no signs of distress. No chest pain or shortness of breath. No fevers or chills. BP low in triage. 90s/50s. No other aggravating or relieving factors. No other associated symptoms Allergies: Coded Allergies: AUBREY INHIBITORS (Verified Allergy, Unknown, ANGIOEDEMA, 09/17/12) Past Medical History: DM, HTN, AFib, COPD, CVA/TIA, psych hx Past Surgical History: none, pacemaker, other - gtube Hx Cardiac Problems: Yes - a fib,cellulitis of face Hx Hypertension: Yes Hx Pacemaker: Yes Hx Asthma: Yes Hx COPD: Yes Hx Diabetes: Yes Hx Gastrointestinal Problems: Yes - G tube History Of Psychiatric Problem: Yes - depression Hx Neurological Problems: Yes Hx Cerebrovascular Accident: Yes Hx Aphasia: Yes Hx Weakness: Yes Assessment/Plan - Dehydration: Low Na and high K - Anemia - HypoTension - HTN (hypertension) - History of CVA (cerebrovascular accident) - Diabetes - Thyroid mass of unclear etiology - s/p Vanco induced renal failure Plan: Hydrate- Monitor lytes and Monitor renal parameters- Keep BP over 100 syst DARIN Cota Feb 06, 2017 10:10
[2017-02-06 11:33] VITALS: BP 110/64
[2017-02-06] MEDS: Vancomycin 750mg/D5W 275ml IVPB SCH ×4 (11:42→22:29)
--- NOTE | 2017-02-06 13:01 | GI Initial Consult Note ---
History of Present Illness General Date patient seen: Feb 06, 2017 Time patient seen: 10:00 Reason for Hospitalization: Malfunctioning Gastric Tube Referring physician: LISA GALLAGHER Reason for Consultation: GT MALFUNCTION Present Illness HPI 76-year-old male presnts to ED for evaluation. Patient brought in for G-tube replacement. There is a tear in the G-tube noticed today by [facility] staff. Patient brought in for replacement. Patient has history of dementia. Upon arrival patient showing no signs of distress. No chest pain or shortness of breath. No fevers or chills. BP low in triage. 90s/50s. No other aggravating or relieving factors. No other associated symptoms GI CONSULT: HPI as noted above. GI consulted for GT malfunction. Pt seen by Dr. Goetz in ED s/p GT replacement by bedside. Pt seen today awake A&Ox 3 NAD with no active s/sx of N/V/D. He presents with anemia. Home Meds Reported Medications Esomeprazole Magnesium (NEXIUM) 40 Mg Capsule.dr, 40 MG GT DAILY, CAP 02/05/17 Metoprolol Tartrate* (LOPRESSOR*) 5 Mg/5 Ml Ampul, 12.5 MG GT BID, AMP 02/05/17 Ferrous Sulfate, Dried (FERROUS SULFATE) 500 Gm Powder, 325 GM ORAL DAILY, GM 02/05/17 Apixaban (ELIQUIS) 2.5 Mg Tablet, 2.5 MG GT BID, TAB 02/05/17 Bupropion HCl (Wellbutrin Sr) 150 Mg Tablet.er, 75 MG GT BID, TAB 02/05/17 Bupropion Hcl* (WELLBUTRIN XL*) 150 Mg Tab.er.24h, 75 MG GT BID for 30 Days, TAB 0 Refills 11/10/16 Valproate Sodium (VALPROIC ACID) 250 Mg/5 Ml Solution, 250 MG GT DAILY 11/10/16 Finasteride* (PROSCAR*) 5 Mg Tablet, 5 MG GT DAILY, #30 TAB 0 Refills 11/10/16 Potassium Chloride (POTASSIUM CHLORIDE) 10 Meq Tab.er.prt, 10 MEQ GT DAILY, TAB 11/10/16 Multivitamin With Minerals (MULTIVITAMINS WITH MINERALS*) 1 Each Tablet, 1 TAB GT DAILY, TAB 11/10/16 Magnesium Hydroxide* (MILK OF MAGNESIA*) 400 Mg/5 Ml Oral.susp, 30 ML ORAL DAILY Y for Constipation, ML 11/10/16 Metformin Hcl* (GLUCOPHAGE*) 500 Mg Tablet, 500 MG GT TWICE A DAY, TAB 11/10/16 Furosemide* (LASIX*) 20 Mg Tablet, 20 MG GT DAILY, TAB 11/10/16 Apixaban (ELIQUIS) 2.5 Mg Tablet, 2.5 MG GT BID, TAB 11/10/16 Cranberry Extract (CRANBERRY) 200 Mg Capsule, 200 MG GT DAILY, CAP 11/10/16 Clonidine Hcl* (CATAPRES*) 0.1 Mg Tablet, 0.1 MG GT DAILY, TAB 11/10/16 Amlodipine Besylate* (AMLODIPINE BESYLATE*) 5 Mg Tablet, 5 MG GT DAILY, TAB 11/10/16 Amiodarone Hcl* (PACERONE*) 100 Mg Tablet, 100 MG GT DAILY, TAB 11/10/16 Esomeprazole Magnesium (NEXIUM) 40 Mg Suspdr.pkt, 40 MG GT DAILY, PKT 10/14/16 Metoprolol Tartrate* (METOPROLOL TARTRATE*) 25 Mg Tablet, 12.5 MG GT TWICE A DAY , TAB 10/14/16 Doxazosin Mesylate* (CARDURA*) 1 Mg Tablet, 2 MG GT BEDTIME, TAB 10/14/16 Insulin Aspart* (NOVOLOG*) 100 Unit/1 Ml Insuln.pen, 0 SUBQ, EA 0 Refills BS-150-199=1 UNIT,200-249=2,250-299=3,300-349=4,350-400=5,BS>400 CALL MD 01/15/14 Acetaminophen (Acetaminophen) 650 Mg/20.3 Ml Soln, 650 MG ORAL Q4HR, TAB PRN MILD PAIN AND TEMP>100.6 01/15/14 Potassium Chloride (Potassium Chloride) 30 Meq/22.5 Ml Liqd, 10 MEQ GT DAILY, ML MIX W/ 120 ML OF H2O 01/14/14 Clonidine Hcl* (CATAPRES*) 0.1 Mg Tablet, 0.1 MG ORAL EVERY 6 HOURS, TAB PRN SBP>160 OR DBP>90 01/14/14 Insulin Regular, Human* (NOVOLIN R*) 100 Unit/1 Ml Vial, 0 SUBQ .SLIDING SCALE, UNITS Inject subcutaneously per sliding scale orders 11/26/12 Med list reviewed/reconciled: Yes Allergies: Coded Allergies: AUBREY INHIBITORS (Verified Allergy, Unknown, ANGIOEDEMA, 09/17/12) Patient History PMH Narrative Past Medical History: DM, HTN, AFib, COPD, CVA/TIA, psych hx Past Surgical History: none, pacemaker, other - gtube Pertinent Family History: none Social History: Denies: alcohol use, drug use, smoking Immunizations: UTD Reviewed Nursing Documentation: PMH: Agreed, PSxH: Agreed Nursing Documentation-PMH Hx Cardiac Problems: Yes - a fib,cellulitis of face Hx Hypertension: Yes Hx Pacemaker: Yes Hx Asthma: Yes Hx COPD: Yes Hx Diabetes: Yes Hx Cancer: No Hx Gastrointestinal Problems: Yes - G tube Hx Dialysis: No History Of Psychiatric Problem: Yes - depression Hx Neurological Problems: Yes Hx Cerebrovascular Accident: Yes Hx Seizures: No Hx Aphasia: Yes Hx Weakness: Yes Review of Systems All Other Systems: limited Physical Exam Vital Signs Date Time Temp Pulse Resp B/P Pulse Ox O2 Delivery O2 Flow Rate FiO2 02/05/17 14:11 98.1 60 18 92/50 93 Room Air Sp02 EP Interpretation: reviewed Labs Laboratory Tests Test 02/05/17 14:40 02/05/17 21:55 02/06/17 05:30 White Blood Count 4.6 K/UL (4.8-10.8) L Red Blood Count 3.18 M/UL (4.70-6.10) L Hemoglobin 10.6 G/DL (14.2-18.0) L Hematocrit 33.7 % (42.0-52.0) L Mean Corpuscular Volume 106 FL (80-99) H Mean Corpuscular Hemoglobin 33.4 PG (27.0-31.0) H Mean Corpuscular Hemoglobin Concent 31.6 G/DL (32.0-36.0) L Red Cell Distribution Width 14.7 % (11.6-14.8) Platelet Count 231 K/UL (150-450) Mean Platelet Volume 9.0 FL (6.5-10.1) Neutrophils (%) (Auto) 74.0 % (45.0-75.0) Lymphocytes (%) (Auto) 13.2 % (20.0-45.0) L Monocytes (%) (Auto) 8.6 % (1.0-10.0) Eosinophils (%) (Auto) 3.5 % (0.0-3.0) H Basophils (%) (Auto) 0.7 % (0.0-2.0) Sodium Level 134 mEQ/L (135-145) L Potassium Level 5.1 mEQ/L (3.4-4.9) H Chloride Level 94 mEQ/L (98-107) L Carbon Dioxide Level 27 mEQ/L (20-30) Anion Gap 13 (5-15) Blood Urea Nitrogen 35 mg/dL (7-23) H Creatinine 1.1 mg/dL (0.7-1.2) Estimat Glomerular Filtration Rate mL/min (>60) Glucose Level 89 mg/dL (74-106) Calcium Level 8.9 mg/dL (8.6-10.2) Total Bilirubin 0.3 mg/dL (0.0-1.2) Aspartate Amino Transf (AST/SGOT) 16 U/L (5-40) Alanine Aminotransferase (ALT/SGPT) 8 U/L (3-41) Alkaline Phosphatase 89 U/L (40-129) Total Protein 6.8 g/dL (6.6-8.7) Albumin 3.2 g/dL (3.5-5.2) L Globulin 3.6 g/dL Albumin/Globulin Ratio 0.8 (1.0-2.7) L Troponin I < 0.30 ng/mL (<=0.30) Urine Color Pale yellow Urine Appearance Clear Urine pH 7 (4.5-8.0) Urine Specific Colon 1.005 (1.005-1.035) Urine Protein Negative (NEGATIVE) Urine Glucose (UA) Negative (NEGATIVE) Urine Ketones 1+ (NEGATIVE) H Urine Occult Blood Negative (NEGATIVE) Urine Nitrite Negative (NEGATIVE) Urine Bilirubin Negative (NEGATIVE) Urine Urobilinogen Normal MG/DL (0.0-1.0) Urine Leukocyte Esterase Negative (NEGATIVE) General Appearance: well appearing, no apparent distress, alert Head: normocephalic EENT: normal ENT inspection Neck: normal inspection, full range of motion, supple Respiratory: normal breath sounds, no respiratory distress Cardiovascular: normal rate Gastrointestinal: non tender, soft, normal bowel sounds, gt - c/d/i Rectal: deferred Musculoskeletal: back normal Neurologic: alert, responsive Skin: normal inspection, normal color, no rash, warm/dry Lymphatic: normal inspection, no adenopathy Current Medications Current Medications Medications (Trade) Dose Ordered Sig/Yousuf Route PRN Reason Start Time Stop Time Status Last Admin Dose Admin Cefepime HCl 1 gm/ Dextrose 55 ml @ 110 mls/hr EVERY 12 HOURS IVPB 02/06/17 09:00 02/13/17 08:59 02/06/17 09:59 Sodium Chloride (Sodium Chloride 1000ml bag) 1,000 ml @ 100 mls/hr Q10H IV 02/05/17 23:45 03/07/17 23:44 02/06/17 11:42 Vancomycin HCl 1 ea 1 ea DAILY PRN MISC Per rx protocol 02/06/17 08:00 03/08/17 07:59 Vancomycin HCl/ Dextrose (Vancomycin/D5W) 275 ml @ 183.708 mls/hr Q12HR@1000,2200 IVPB 02/06/17 10:00 02/11/17 09:59 02/06/17 11:42 GI: Plan Problems: (1) Diabetes (2) Hypothyroidism (3) PEG (percutaneous endoscopic gastrostomy) adjustment/replacement/removal (4) Dysphagia (5) Malfunction of gastrostomy tube (6) Dementia Plan GT replaced by MD [place] to start GTF's per dietary anemia work up OB stool uncollected fu ST evaluation H2 fu labs Discussed with Dr. Goetz. Thank you for referring this patient, we will follow. Trinh Bonilla N.P. Feb 06, 2017 13:01
[2017-02-06] MEDS ORDERED: Tubing IV Secondary IV ONE (15:18)
[2017-02-06] MEDS ORDERED: NS 550ML IV ONE (15:18)
[2017-02-06] MEDS ORDERED: 1/2 NS 1000ml IV ONE (15:18)
[2017-02-06] MEDS ORDERED: NS 275ml ONE (15:18)
[2017-02-06 15:37] VITALS: BP 104/63
--- NOTE | 2017-02-06 16:36 | Diagnostic Imaging Report ---
Indication: Dyspnea Comparison: 11/10/16 A single view chest radiograph was obtained. Findings: Lung volumes are low. There is a pacemaker on the left. Bones are osteopenic. No infiltrate identified. Pulmonary vascularity is within normal limits. Impression: No acute findings
--- NOTE | 2017-02-06 17:25 | Diagnostic Imaging Report ---
APPROVED REPORT CPT Code: 42208 Present Symptoms Lower Extremity Pain: Bilateral BILATERAL: Imaging reveals a patent deep venous system bilaterally. There is no evidence of thrombus within the femoral, popliteal or tibial segments. The greater saphenous veins are also within normal limits. Doppler indicates normal spontaneous flow within these segments.
[2017-02-06 20:00] VITALS: BP_SYST 101; BP_SYST 119; BP_DIAS 67
[2017-02-06] MEDS ORDERED: NovoLOG Insulin Flexpen SUBQ SCH (21:00)
[2017-02-06] MEDS: Famotidine 20 MG/ 2ML VIAL IVP SCH (21:21)
--- NOTE | 2017-02-06 21:28 | Consultation ---
DATE OF CONSULTATION: 02/06/2017 INFECTIOUS DISEASE CONSULTATION CONSULTING PHYSICIAN: Aida Frederick M.D. REQUESTING PHYSICIAN: Laina Pereira M.D. REASON FOR CONSULTATION: Malfunctioning G-tube possible site infection with sepsis and hypotension. Recommendation for antibiotics therapy. 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 He was sent from the care home facility for G-tube malfunctioning, which was noticed by the nursing staff. The patient had a tear in the G-tube, so he was brought to [facility] for replacement. The patient was found to be hypotensive upon arrival with elevated white count suspicious for sepsis so I was consulted by the primary provider for antibiotics recommendation and further management. As of note, the patient is poor historian. History was mainly obtained from the medical record. PAST MEDICAL HISTORY: Significant for diabetes, hypotension, atrial fibrillation, COPD, CVA, TIA, and psych disorder. PAST SURGICAL HISTORY: He had a pacemaker placement and G-tube placement. ALLERGIES: He is allergic to AUBREY inhibitors. MEDICATIONS: Please refer to MAR. SOCIAL HISTORY: He is a skilled nursing resident. No recent drugs, tobacco, or alcohol. FAMILY HISTORY: Not contributory. PHYSICAL EXAMINATION: VITAL SIGNS: Temperature 98.6 degrees, pulse 70, respirations 21, blood pressure 110/64, and pulse oximetry 97% on room air. GENERAL: This is an elderly male, lying in bed, awake, alert, and pleasant, not in distress. HEENT: He had mild left facial swelling, but no redness or erythema. Dry oral mucosa. No teeth. No oral thrush. NECK: Supple. No lymphadenopathy. CARDIOVASCULAR: Regular rate and rhythm. No murmur. LUNGS: Clear bilaterally. No wheezing or rhonchi. ABDOMEN: Soft, nontender, and nondistended. Positive bowel sounds. No hepatosplenomegaly. No ascites. G-tube site looks mildly red, but no significant erythema or fluctuation. No drainage. EXTREMITIES: No edema or cyanosis. LABORATORY DATA: He has white count of 4.6, hemoglobin of 10.6, and platelet count of 231,000. BUN of 35 and creatinine of 1.1. AST of 16 and ALT of 8. Urinalysis negative for UTI. ASSESSMENT AND PLAN: 1. Sepsis rule out G-tube site infection with hypotension. We will send blood culture and start vancomycin and cefepime empiric treatment. 2. Hypotension rule out sepsis. We will send blood culture and start vancomycin with cefepime empirically. 3. Percutaneous endoscopic gastrostomy tear. Recommend replacement possible site infection. Continue vancomycin and cefepime. 4. Cellulitis of the sacrum. The patient is already on cefepime and vancomycin. Recommend off-loading as needed. 5. Malfunctioning of the gastrostomy tube. Recommend replacement and gastrointestinal consult. Aida Frederick M.D. DR: ADENIKE JOB#: [id number] CC:
[2017-02-07] VITALS: BP 119/67
[2017-02-07 04:00] VITALS: BP 117/64
[2017-02-07] MEDS: NovoLOG Insulin Flexpen SUBQ SCH ×3 (06:00→17:43)
[2017-02-07] MEDS ORDERED: NovoLOG Insulin Flexpen SUBQ SCH (06:30)
--- NOTE | 2017-02-07 07:08 | General Progress Note ---
Assessment/Plan Problem List: (1) Hypotension ICD Codes: I95.9 - Hypotension, unspecified SNOMED: 96163965 Qualifiers: Qualified Codes: I95.9 - Hypotension, unspecified (2) Dementia ICD Codes: F03.90 - Dementia SNOMED: 25990561 (3) History of CVA (cerebrovascular accident) ICD Codes: Z86.73 - History of CVA (cerebrovascular accident) SNOMED: 652685640 (4) Dysphagia ICD Codes: R13.10 - Dysphagia SNOMED: 85762851 (5) PEG (percutaneous endoscopic gastrostomy) adjustment/replacement/removal ICD Codes: Z43.1 - Encounter for attention to gastrostomy SNOMED: 007177065 (6) Diabetes ICD Codes: E11.9 - Diabetes SNOMED: 05371308 (7) Thyroid mass of unclear etiology ICD Codes: E07.89 - Other specified disorders of thyroid SNOMED: 583237323 (8) Hypothyroidism ICD Codes: E03.9 - Hypothyroidism, unspecified SNOMED: 41257476 Status: progressing Assessment/Plan afebrile vitals stable hypotension improving s/p exchange of peg moniter for hypotension fluids Subjective ROS Limited/Unobtainable: Yes Constitutional: Reports: no symptoms Allergies: Coded Allergies: AUBREY INHIBITORS (Verified Allergy, Unknown, ANGIOEDEMA, 09/17/12) Objective Last 24 Hour Vital Signs Date Time Temp Pulse Resp B/P Pulse Ox O2 Delivery O2 Flow Rate FiO2 02/07/17 04:00 97.7 68 20 117/64 96 Room Air 02/07/17 00:00 97.7 71 20 119/67 97 Room Air 02/06/17 20:00 97.7 71 20 119/67 97 Room Air 02/06/17 20:00 98.9 75 20 101/67 96 Room Air 02/06/17 15:37 100.4 69 22 104/63 95 Room Air 02/06/17 11:33 98.6 70 21 110/64 97 Room Air 02/06/17 07:49 98.2 64 21 96/64 95 Room Air Intake and Output 02/06/17 02/07/17 19:00 07:00 Intake Total 1182.4 ml 1375.000 ml Output Total 650 ml 1400 ml Balance 532.4 ml -25.000 ml Intake Free Water 160 ml IV Total 822.4 ml 1155.000 ml Tube Feeding 200 ml 220 ml Output Urine Total 650 ml 1400 ml Laboratory Tests 02/06/17 11:30: Hemoglobin A1c 4.8 Height (Feet): 5 Height (Inches): 8.00 Weight (Pounds): 180 General Appearance: confused Cardiovascular: normal rate Respiratory/Chest: lungs clear Abdomen: soft Laina Pereira MD Feb 07, 2017 07:08
[2017-02-07 08:07] LABS: BASOPHILS % (AUTO) 0.9 % (0.0-2.0); EOSINOPHILS % (AUTO) 3.2 % (0.0-3.0); LYMPHOCYTES % (AUTO) 13.3 % (20.0-45.0); MEAN CORPUSCULAR HEMOGLOBIN 33.7 PG (27.0-31.0); MEAN CORPUSCULAR HGB CONC 32.1 G/DL (32.0-36.0); MEAN CORPUSCULAR VOLUME 105 FL (80-99); MEAN PLATELET VOLUME 9.3 FL (6.5-10.1); MONOCYTES % (AUTO) 10.2 % (1.0-10.0); NEUTROPHILS % (AUTO) 72.4 % (45.0-75.0); PLATELET COUNT 218 K/UL (150-450); RED BLOOD COUNT 2.99 M/UL (4.70-6.10); RED CELL DISTRIBUTION WIDTH 14.9 % (11.6-14.8); WHITE BLOOD COUNT 4.9 K/UL (4.8-10.8)
[2017-02-07 08:08] VITALS: BP 136/53
[2017-02-07 08:35] LABS: FERRITIN 82 ng/mL (10-230)
[2017-02-07 08:38] LABS: HEMOGLOBIN A1C 4.4 % (< 6.0)
[2017-02-07 08:42] LABS: ALANINE AMINOTRANSFERASE 7 U/L (3-41); ANION GAP 15 (5-15); ASPARTATE AMINO TRANSFERASE 15 U/L (5-40); CALCIUM 8.5 mg/dL (8.6-10.2); CARBON DIOXIDE 24 mEQ/L (20-30); CHLORIDE 101 mEQ/L (98-107); CHOLESTEROL 142 mg/dL (< 200); CHOLESTEROL/HDL RATIO 3.6 (3.3-4.4); CREATININE 0.8 mg/dL (0.7-1.2); LDL CHOLESTEROL (CALC.) 80 mg/dL (60-99); POTASSIUM 4.1 mEQ/L (3.4-4.9); SODIUM 140 mEQ/L (135-145); TOTAL PROTEIN 5.6 g/dL (6.6-8.7)
[2017-02-07 08:43] LABS: CRP QUANT 3.4 mg/dL (< 0.5); MAGNESIUM 1.8 mg/dL (1.7-2.5); PHOSPHORUS 2.6 mg/dL (2.5-4.8); URIC ACID 6.2 mg/dL (3.0-7.5)
[2017-02-07 08:45] LABS: HEMOLYSIS 6; IRON 25 ug/dL (59-158); TOTAL IRON BINDING CAPACITY 169 ug/dL (250-400)
[2017-02-07] MEDS: Famotidine 20 MG/ 2ML VIAL IVP SCH (09:55)
[2017-02-07] MEDS: Cefepime HCl 1 GM in D5W 55 ML IVPB SCH ×2 (09:56→20:24)
--- NOTE | 2017-02-07 10:46 | General Progress Note ---
Assessment/Plan Status: stable Assessment/Plan status; - Dehydration: Low Na and high K - Anemia - HypoTension - HypoThyroidism - HTN (hypertension) - History of CVA (cerebrovascular accident) - Diabetes - Thyroid mass of unclear etiology - s/p Vanco induced renal failure Plan: down on Hydrate- Monitor lytes and Monitor renal parameters- Keep BP over 100 syst [place] Synthroid Subjective ROS Limited/Unobtainable: No Constitutional: Reports: malaise Allergies: Coded Allergies: AUBREY INHIBITORS (Verified Allergy, Unknown, ANGIOEDEMA, 09/17/12) Objective Last 24 Hour Vital Signs Date Time Temp Pulse Resp B/P Pulse Ox O2 Delivery O2 Flow Rate FiO2 02/07/17 08:08 97.5 71 19 136/53 98 Room Air 02/07/17 04:00 97.7 68 20 117/64 96 Room Air 02/07/17 00:00 97.7 71 20 119/67 97 Room Air 02/06/17 20:00 97.7 71 20 119/67 97 Room Air 02/06/17 20:00 98.9 75 20 101/67 96 Room Air 02/06/17 15:37 100.4 69 22 104/63 95 Room Air 02/06/17 11:33 98.6 70 21 110/64 97 Room Air Intake and Output 02/06/17 02/07/17 19:00 07:00 Intake Total 1182.4 ml 1375.000 ml Output Total 650 ml 1400 ml Balance 532.4 ml -25.000 ml Intake Free Water 160 ml IV Total 822.4 ml 1155.000 ml Tube Feeding 200 ml 220 ml Output Urine Total 650 ml 1400 ml Laboratory Tests 02/06/17 11:30: Hemoglobin A1c 4.8 02/07/17 06:24: Hemoglobin A1c 4.4, White Blood Count 4.9, Red Blood Count 2.99L, Hemoglobin 10.1L, Hematocrit 31.4L, Mean Corpuscular Volume 105H, Mean Corpuscular Hemoglobin 33.7H, Mean Corpuscular Hemoglobin Concent 32.1, Red Cell Distribution Width 14.9H, Platelet Count 218, Mean Platelet Volume 9.3, Neutrophils (%) (Auto) 72.4, Lymphocytes (%) (Auto) 13.3L, Monocytes (%) (Auto) 10.2H, Eosinophils (%) (Auto) 3.2H, Basophils (%) (Auto) 0.9, Sodium Level 140, Potassium Level 4.1, Chloride Level 101, Carbon Dioxide Level 24, Anion Gap 15, Blood Urea Nitrogen 19, Creatinine 0.8, Estimat Glomerular Filtration Rate , Glucose Level 75, Uric Acid 6.2, Calcium Level 8.5L, Phosphorus Level 2.6, Magnesium Level 1.8, Iron Level 25L, Total Iron Binding Capacity 169L, Percent Iron Saturation 15, Unsaturated Iron Binding 144, Ferritin 82, Total Bilirubin 0.3, Aspartate Amino Transf (AST/SGOT) 15, Alanine Aminotransferase (ALT/SGPT) 7 , Alkaline Phosphatase 71, C-Reactive Protein, Quantitative 3.4H, Pro-B-Type Natriuretic Peptide 3014H, Total Protein 5.6L, Albumin 2.9L, Globulin 2.7, Albumin/Globulin Ratio 1.0, Triglycerides Level 115, Cholesterol Level 142, LDL Cholesterol 80, HDL Cholesterol 39, Cholesterol/HDL Ratio 3.6, Vitamin B12 Level 963H, Folate [Pending], Thyroid Stimulating Hormone (TSH) 36.560H Height (Feet): 5 Height (Inches): 8.00 Weight (Pounds): 180 General Appearance: no apparent distress Objective PE not changed DARIN QUESADA Feb 07, 2017 10:46
[2017-02-07 11:13] VITALS: BP 121/68
[2017-02-07] MEDS: Vancomycin 750mg/D5W 275ml IVPB SCH ×4 (11:17→21:48)
--- NOTE | 2017-02-07 14:15 | Infectious Diseases Prog Note ---
Assessment/Plan Problems: (1) Sepsis Assessment & Plan: with hypotension, await blood culture, continue vancomycin and cefepime (2) Hypotension Assessment & Plan: rule out sepsis, blood culture is pending , continue vancomycin with cefepime empirically (3) PEG (percutaneous endoscopic gastrostomy) adjustment/replacement/removal Assessment & Plan: with possible site infection, will start vancomycin and cefepime empirically (4) Malfunction of gastrostomy tube Assessment & Plan: recommend repleacement and GI consult (5) Cellulitis Assessment & Plan: of the sacrum, on vancomycin and cefepime, recommend off loading Subjective Constitutional: Reports: no symptoms HEENT: Reports: no symptoms Respiratory: Reports: no symptoms Cardiovascular: Reports: no symptoms Gastrointestinal/Abdominal: Reports: no symptoms Genitourinary: Reports: no symptoms Neurologic: Reports: no symptoms Psychiatric: Reports: no symptoms Skin: Reports: no symptoms Endocrine: Reports: no symptoms Allergies: Coded Allergies: AUBREY INHIBITORS (Verified Allergy, Unknown, ANGIOEDEMA, 09/17/12) Objective Vital Signs Last 24 Hour Vital Signs Date Time Temp Pulse Resp B/P Pulse Ox O2 Delivery O2 Flow Rate FiO2 02/07/17 11:13 97.7 59 15 121/68 97 Room Air 02/07/17 08:08 97.5 71 19 136/53 98 Room Air 02/07/17 04:00 97.7 68 20 117/64 96 Room Air 02/07/17 00:00 97.7 71 20 119/67 97 Room Air 02/06/17 20:00 97.7 71 20 119/67 97 Room Air 02/06/17 20:00 98.9 75 20 101/67 96 Room Air 02/06/17 15:37 100.4 69 22 104/63 95 Room Air Height (Feet): 5 Height (Inches): 8.00 Weight (Pounds): 180 General Appearance: no acute distress, cachetic, other - left facial swelling HEENT: atraumatic, anicteric, mucous membranes moist, PERRL, supple, no JVD Respiratory/Chest: chest wall non-tender, lungs clear, normal breath sounds, no respiratory distress, no accessory muscle use Cardiovascular: normal peripheral pulses, normal rate, regular rhythm, no gallop/murmur Abdomen: normal bowel sounds, soft, non tender, no organomegaly, non distended , no mass Extremities: no cyanosis, no clubbing Skin: no rash, no lesions Microbiology Date/Time Source Procedure Growth Status 02/06/17 09:20 Blood Blood Culture - Preliminary NO GROWTH AFTER 24 HOURS Resulted 02/06/17 09:10 Blood Blood Culture - Preliminary NO GROWTH AFTER 24 HOURS Resulted Laboratory Tests Test 02/07/17 06:24 White Blood Count 4.9 K/UL (4.8-10.8) Red Blood Count 2.99 M/UL (4.70-6.10) L Hemoglobin 10.1 G/DL (14.2-18.0) L Hematocrit 31.4 % (42.0-52.0) L Mean Corpuscular Volume 105 FL (80-99) H Mean Corpuscular Hemoglobin 33.7 PG (27.0-31.0) H Mean Corpuscular Hemoglobin Concent 32.1 G/DL (32.0-36.0) Red Cell Distribution Width 14.9 % (11.6-14.8) H Platelet Count 218 K/UL (150-450) Mean Platelet Volume 9.3 FL (6.5-10.1) Neutrophils (%) (Auto) 72.4 % (45.0-75.0) Lymphocytes (%) (Auto) 13.3 % (20.0-45.0) L Monocytes (%) (Auto) 10.2 % (1.0-10.0) H Eosinophils (%) (Auto) 3.2 % (0.0-3.0) H Basophils (%) (Auto) 0.9 % (0.0-2.0) Sodium Level 140 mEQ/L (135-145) Potassium Level 4.1 mEQ/L (3.4-4.9) Chloride Level 101 mEQ/L (98-107) Carbon Dioxide Level 24 mEQ/L (20-30) Anion Gap 15 (5-15) Blood Urea Nitrogen 19 mg/dL (7-23) Creatinine 0.8 mg/dL (0.7-1.2) Estimat Glomerular Filtration Rate mL/min (>60) Glucose Level 75 mg/dL (74-106) Hemoglobin A1c 4.4 % (< 6.0) Uric Acid 6.2 mg/dL (3.0-7.5) Calcium Level 8.5 mg/dL (8.6-10.2) L Phosphorus Level 2.6 mg/dL (2.5-4.8) Magnesium Level 1.8 mg/dL (1.7-2.5) Iron Level 25 ug/dL (59-158) L Total Iron Binding Capacity 169 ug/dL (250-400) L Percent Iron Saturation 15 % (15-50) Unsaturated Iron Binding 144 ug/dL (112-346) Ferritin 82 ng/mL (10-230) Total Bilirubin 0.3 mg/dL (0.0-1.2) Aspartate Amino Transf (AST/SGOT) 15 U/L (5-40) Alanine Aminotransferase (ALT/SGPT) 7 U/L (3-41) Alkaline Phosphatase 71 U/L (40-129) C-Reactive Protein, Quantitative 3.4 mg/dL (< 0.5) H Pro-B-Type Natriuretic Peptide 3014 pg/mL (0-450) H Total Protein 5.6 g/dL (6.6-8.7) L Albumin 2.9 g/dL (3.5-5.2) L Globulin 2.7 g/dL Albumin/Globulin Ratio 1.0 (1.0-2.7) Triglycerides Level 115 mg/dL (< 150) Cholesterol Level 142 mg/dL (< 200) LDL Cholesterol 80 mg/dL (60-99) HDL Cholesterol 39 mg/dL (> 60) Cholesterol/HDL Ratio 3.6 (3.3-4.4) Vitamin B12 Level 963 pg/mL (211-946) H Folate Pending Thyroid Stimulating Hormone (TSH) 36.560 uIU/mL (0.300-4.500) Current Medications Medications (Trade) Dose Ordered Sig/Yousuf Route PRN Reason Start Time Stop Time Status Last Admin Dose Admin Cefepime HCl 1 gm/ Dextrose 55 ml @ 110 mls/hr EVERY 12 HOURS IVPB 02/06/17 09:00 02/13/17 08:59 02/07/17 09:56 Dextrose (Dextrose 50%) STAT PRN IV Hypoglycemia 02/06/17 19:00 03/08/17 18:59 Insulin Aspart (NovoLOG) EVERY 6 HOURS SUBQ 02/07/17 06:00 03/09/17 05:59 02/07/17 12:14 Levothyroxine Sodium (Synthroid) 50 mcg DAILY@0630 GT 02/08/17 06:30 03/10/17 06:29 Ranitidine HCl (Zantac) 150 mg TWICE A DAY GT 02/07/17 18:00 03/09/17 17:59 Vancomycin HCl 1 ea 1 ea DAILY PRN MISC Per rx protocol 02/06/17 08:00 03/08/17 07:59 Vancomycin HCl/ Dextrose (Vancomycin/D5W) 275 ml @ 183.708 mls/hr Q12HR@1000,2200 IVPB 02/06/17 10:00 02/11/17 09:59 02/07/17 11:17 Aida Frederick M.D. Feb 07, 2017 14:15
--- NOTE | 2017-02-07 14:18 | Consultation ---
Consult Note Consult Note DOS: 02/07/17 HEMATOLOGY CONSULTATION CONSULTING PHYSICIAN: Jax Alcaraz M.D. REQUESTING PHYSICIAN: Laina Pereira M.D. 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 He was sent from the half-way facility for G -tube malfunctioning, which was noticed by the nursing staff. The patient had a tear in the G-tube, so he was brought to [facility] for replacement. The patient was found to be hypotensive upon arrival with decreased white count suspicious for sepsis so I was consulted as well as for eval of anemia. A anemia w/u already ordered. PAST MEDICAL HISTORY: Significant for diabetes, hypotension, atrial fibrillation, COPD, CVA, TIA, and psych disorder. PAST SURGICAL HISTORY: He had a pacemaker placement and G-tube placement. ALLERGIES: He is allergic to AUBREY inhibitors. MEDICATIONS: Please refer to MAR. SOCIAL HISTORY: He is a [facility] resident. No recent drugs, tobacco, or alcohol. FAMILY HISTORY: Not contributory. PHYSICAL EXAMINATION: VITAL SIGNS: reviewed GENERAL: This is an elderly male, lying in bed, awake, alert, and pleasant, not in distress. HEENT: He had mild left facial swelling, but no redness or erythema. Dry oral mucosa. No teeth. No oral thrush. NECK: Supple. No lymphadenopathy. CARDIOVASCULAR: Regular rate and rhythm. No murmur. LUNGS: Clear bilaterally. No wheezing or rhonchi. ABDOMEN: Soft, nontender, and nondistended. Positive bowel sounds. No hepatosplenomegaly. No ascites. G-tube site looks mildly red, but no significant erythema or fluctuation. No drainage. EXTREMITIES: No edema or cyanosis. LABORATORY DATA: He has white count of 4.6, hemoglobin of 10.6, and platelet count of 231,000. BUN of 35 and creatinine of 1.1. AST of 16 and ALT of 8. Urinalysis negative for UTI. ASSESSMENT: 1. Leukopenia is very likely related to infection. Is new onset. Sepsis rule out G-tube site infection with hypotension. Currently on abx 2. Anemia 2/2 chronic disease- anemia w/u had been ordered and has been reviewed 3. Percutaneous endoscopic gastrostomy tear. Recommend replacement possible site infection. Continue vancomycin and cefepime. 4. Cellulitis of the sacrum. The patient is already on cefepime and vancomycin. Recommend off-loading as needed. 5. Malfunctioning of the gastrostomy tube. Recommend replacement and gastrointestinal consult. RECS: - Monitor counts - Peripheral smear ordered - Anemia w/u to be reviewed - Abx as per ID w/u - GI eval - GI ppx with zantac - Appreciate consultation! Jax Alcaraz Feb 07, 2017 14:18
[2017-02-07 15:10] VITALS: BP 132/68
[2017-02-07] MEDS ORDERED: Acetaminophen 650mg/20.3ml GT PRN (16:00)
[2017-02-07] MEDS ORDERED: Milk of Magnesia 30ml Ud ORAL PRN (16:00)
[2017-02-07] MEDS ORDERED: BUPROPION HCL75 MG PO (16:12)
[2017-02-07] MEDS: metFORMIN 500mg tab GT SCH (17:27)
--- NOTE | 2017-02-07 19:42 | General Progress Note ---
Assessment/Plan Assessment/Plan GI: Plan Problems: (1) Diabetes (2) Hypothyroidism (3) PEG (percutaneous endoscopic gastrostomy) adjustment/replacement/removal (4) Dysphagia (5) Malfunction of gastrostomy tube (6) Dementia Plan s/p GT replacement continue GTF's per dietary anemia work up OB stool fu ST evaluation H2B fu labs Subjective Allergies: Coded Allergies: AUBREY INHIBITORS (Verified Allergy, Unknown, ANGIOEDEMA, 09/17/12) Subjective Patient upset no abdominal pain difficult to understand pt Objective Last 24 Hour Vital Signs Date Time Temp Pulse Resp B/P Pulse Ox O2 Delivery O2 Flow Rate FiO2 02/07/17 15:10 97.7 62 14 132/68 97 Room Air 02/07/17 11:13 97.7 59 15 121/68 97 Room Air 02/07/17 08:08 97.5 71 19 136/53 98 Room Air 02/07/17 04:00 97.7 68 20 117/64 96 Room Air 02/07/17 00:00 97.7 71 20 119/67 97 Room Air 02/06/17 20:00 97.7 71 20 119/67 97 Room Air 02/06/17 20:00 98.9 75 20 101/67 96 Room Air Intake and Output 02/06/17 02/07/17 19:00 07:00 Intake Total 1182.4 ml 1405.000 ml Output Total 650 ml 1400 ml Balance 532.4 ml 5.000 ml Intake Free Water 160 ml IV Total 822.4 ml 1155.000 ml Tube Feeding 200 ml 250 ml Output Urine Total 650 ml 1400 ml Laboratory Tests 02/07/17 06:24: White Blood Count 4.9, Red Blood Count 2.99L, Hemoglobin 10.1L, Hematocrit 31.4L , Mean Corpuscular Volume 105H, Mean Corpuscular Hemoglobin 33.7H, Mean Corpuscular Hemoglobin Concent 32.1, Red Cell Distribution Width 14.9H, Platelet Count 218, Mean Platelet Volume 9.3, Neutrophils (%) (Auto) 72.4, Lymphocytes (%) (Auto) 13.3L, Monocytes (%) (Auto) 10.2H, Eosinophils (%) (Auto ) 3.2H, Basophils (%) (Auto) 0.9, Sodium Level 140, Potassium Level 4.1, Chloride Level 101, Carbon Dioxide Level 24, Anion Gap 15, Blood Urea Nitrogen 19, Creatinine 0.8, Estimat Glomerular Filtration Rate , Glucose Level 75, Hemoglobin A1c 4.4, Uric Acid 6.2, Calcium Level 8.5L, Phosphorus Level 2.6, Magnesium Level 1.8, Iron Level 25L, Total Iron Binding Capacity 169L, Percent Iron Saturation 15, Unsaturated Iron Binding 144, Ferritin 82, Total Bilirubin 0.3, Aspartate Amino Transf (AST/SGOT) 15, Alanine Aminotransferase (ALT/SGPT) 7 , Alkaline Phosphatase 71, C-Reactive Protein, Quantitative 3.4H, Pro-B-Type Natriuretic Peptide 3014H, Total Protein 5.6L, Albumin 2.9L, Globulin 2.7, Albumin/Globulin Ratio 1.0, Triglycerides Level 115, Cholesterol Level 142, LDL Cholesterol 80, HDL Cholesterol 39, Cholesterol/HDL Ratio 3.6, Vitamin B12 Level 963H, Folate [Pending], Thyroid Stimulating Hormone (TSH) 36.560H Height (Feet): 5 Height (Inches): 8.00 Weight (Pounds): 180 Objective WDWN (L) face swollen garbled speech supple CTA RRR soft ND NT (+) GT no edema non WILLIS AMADO Feb 07, 2017 19:42
[2017-02-07 20:00] VITALS: BP 121/71
[2017-02-07] MEDS: Eliquis 2.5mg tablet GT SCH (20:24)
[2017-02-07] MEDS: BuPROPion 75mg Tab ORAL SCH (20:25)
[2017-02-07] MEDS: Metoprolol Tartrate 12.5mg TAB GT SCH (20:26)
[2017-02-08] VITALS (9 sets, daily range): BP systolic 75–130; BP diastolic 45–72
[2017-02-08] MEDS: NovoLOG Insulin Flexpen SUBQ SCH ×4 (06:00→17:45)
--- NOTE | 2017-02-08 08:23 | General Progress Note ---
Assessment/Plan Problem List: (1) Hypotension ICD Codes: I95.9 - Hypotension, unspecified SNOMED: 64799836 Qualifiers: Qualified Codes: I95.9 - Hypotension, unspecified (2) Dementia ICD Codes: F03.90 - Dementia SNOMED: 73396961 (3) History of CVA (cerebrovascular accident) ICD Codes: Z86.73 - History of CVA (cerebrovascular accident) SNOMED: 564026020 (4) Dysphagia ICD Codes: R13.10 - Dysphagia SNOMED: 96961733 (5) PEG (percutaneous endoscopic gastrostomy) adjustment/replacement/removal ICD Codes: Z43.1 - Encounter for attention to gastrostomy SNOMED: 679882575 (6) Diabetes ICD Codes: E11.9 - Diabetes SNOMED: 09648148 (7) Thyroid mass of unclear etiology ICD Codes: E07.89 - Other specified disorders of thyroid SNOMED: 374856336 (8) Hypothyroidism ICD Codes: E03.9 - Hypothyroidism, unspecified SNOMED: 44834938 Status: progressing Assessment/Plan vitals stable afebrile no wheezing hypotension resolving s/p exchange of peg Subjective ROS Limited/Unobtainable: Yes Constitutional: Reports: no symptoms Allergies: Coded Allergies: AUBREY INHIBITORS (Verified Allergy, Unknown, ANGIOEDEMA, 09/17/12) Objective Last 24 Hour Vital Signs Date Time Temp Pulse Resp B/P Pulse Ox O2 Delivery O2 Flow Rate FiO2 02/08/17 07:56 97.7 60 20 130/72 97 Room Air 02/08/17 04:00 97.9 60 20 115/61 97 Room Air 02/08/17 00:00 96.8 60 20 112/64 98 Room Air 02/07/17 20:26 64 126/73 02/07/17 20:00 97.7 64 20 121/71 95 Room Air 02/07/17 15:10 97.7 62 14 132/68 97 Room Air 02/07/17 11:13 97.7 59 15 121/68 97 Room Air Intake and Output 02/07/17 02/08/17 19:00 07:00 Intake Total 1458.708 ml 930 ml Output Total 1150 ml Balance 308.708 ml 930 ml Intake Free Water 300 ml 330 ml IV Total 638.708 ml Tube Feeding 520 ml 600 ml Output Urine Total 1150 ml Laboratory Tests 02/07/17 20:50: Vancomycin Level Trough 15.4H Height (Feet): 5 Height (Inches): 8.00 Weight (Pounds): 180 Neck: supple Cardiovascular: normal rate Respiratory/Chest: lungs clear Laina Pereira MD Feb 08, 2017 08:23
[2017-02-08] MEDS: Cefepime HCl 1 GM in D5W 55 ML IVPB SCH ×2 (09:29→20:16)
[2017-02-08] MEDS: Multivitamin w/Minerals tab ORAL SCH (09:31)
[2017-02-08] MEDS: Amiodarone 200mg tab GT SCH (09:33)
[2017-02-08] MEDS: Valproic Acid 250mg/5ml Liquid GT SCH (09:33)
[2017-02-08] MEDS: metFORMIN 500mg tab GT SCH (09:34)
[2017-02-08] MEDS: Eliquis 2.5mg tablet GT SCH ×2 (09:34→20:17)
[2017-02-08] MEDS: Metoprolol Tartrate 12.5mg TAB GT SCH ×2 (09:34→20:17)
[2017-02-08] MEDS: BuPROPion 75mg Tab ORAL SCH ×2 (09:39→20:17)
[2017-02-08] MEDS: Vancomycin 750mg/D5W 275ml IVPB SCH ×4 (10:13→22:51)
--- NOTE | 2017-02-08 13:10 | General Progress Note ---
Assessment/Plan Status: stable Assessment/Plan status; - Dehydration: Low Na and high K - Anemia - HypoTension - HypoThyroidism - HTN (hypertension) - History of CVA (cerebrovascular accident) - Diabetes - Thyroid mass of unclear etiology - s/p Vanco induced renal failure Plan: no labs today down on Hydrate- Monitor lytes and Monitor renal parameters- Keep BP over 100 syst Garnett Synthroid Subjective ROS Limited/Unobtainable: No Constitutional: Reports: malaise Allergies: Coded Allergies: AUBREY INHIBITORS (Verified Allergy, Unknown, ANGIOEDEMA, 09/17/12) Objective Last 24 Hour Vital Signs Date Time Temp Pulse Resp B/P Pulse Ox O2 Delivery O2 Flow Rate FiO2 02/08/17 12:19 54 22 122/54 97 Nasal Cannula 2.0 02/08/17 11:48 97.5 60 22 75/45 96 Room Air 02/08/17 09:34 130/72 02/08/17 09:34 60 130/72 02/08/17 09:33 60 130/72 02/08/17 07:56 97.7 60 20 130/72 97 Room Air 02/08/17 04:00 97.9 60 20 115/61 97 Room Air 02/08/17 00:00 96.8 60 20 112/64 98 Room Air 02/07/17 20:26 64 126/73 02/07/17 20:00 97.7 64 20 121/71 95 Room Air 02/07/17 15:10 97.7 62 14 132/68 97 Room Air Intake and Output 02/07/17 02/08/17 19:00 07:00 Intake Total 1458.708 ml 930 ml Output Total 1150 ml Balance 308.708 ml 930 ml Intake Free Water 300 ml 330 ml IV Total 638.708 ml Tube Feeding 520 ml 600 ml Output Urine Total 1150 ml Laboratory Tests 02/07/17 20:50: Vancomycin Level Trough 15.4H Height (Feet): 5 Height (Inches): 8.00 Weight (Pounds): 180 General Appearance: no apparent distress Objective PE not changed DARIN QUESADA Feb 08, 2017 13:10
--- NOTE | 2017-02-08 14:46 | General Progress Note ---
Assessment/Plan Assessment/Plan GI: Plan Problems: (1) Diabetes (2) Hypothyroidism (3) PEG (percutaneous endoscopic gastrostomy) adjustment/replacement/removal (4) Dysphagia (5) Malfunction of gastrostomy tube (6) Dementia Plan s/p GT replacement continue GTF's per dietary anemia work up OB stool Rec ENT eval for swollen L face fu ST evaluation H2B fu labs Subjective Allergies: Coded Allergies: AUBREY INHIBITORS (Verified Allergy, Unknown, ANGIOEDEMA, 09/17/12) Subjective NAD no abdominal pain difficult to understand pt Objective Last 24 Hour Vital Signs Date Time Temp Pulse Resp B/P Pulse Ox O2 Delivery O2 Flow Rate FiO2 02/08/17 13:30 69 119/49 02/08/17 11:48 97.5 60 22 75/45 96 Room Air 02/08/17 09:34 130/72 02/08/17 09:34 60 130/72 02/08/17 09:33 60 130/72 02/08/17 07:56 97.7 60 20 130/72 97 Room Air 02/08/17 04:00 97.9 60 20 115/61 97 Room Air 02/08/17 00:00 96.8 60 20 112/64 98 Room Air 02/07/17 20:26 64 126/73 02/07/17 20:00 97.7 64 20 121/71 95 Room Air 02/07/17 15:10 97.7 62 14 132/68 97 Room Air Intake and Output 02/07/17 02/08/17 19:00 07:00 Intake Total 1458.708 ml 930 ml Output Total 1150 ml Balance 308.708 ml 930 ml Intake Free Water 300 ml 330 ml IV Total 638.708 ml Tube Feeding 520 ml 600 ml Output Urine Total 1150 ml Laboratory Tests 02/07/17 20:50: Vancomycin Level Trough 15.4H Height (Feet): 5 Height (Inches): 8.00 Weight (Pounds): 180 Objective WDWN (L) face swollen, ? more garbled speech supple CTA RRR soft ND NT (+) GT no edema non LEONORRWILLIS WILSON Feb 08, 2017 14:46
--- NOTE | 2017-02-08 15:09 | Cardiology Progress Note ---
Assessment/Plan Assessment/Plan The patient is seen and examined, full consult note is dictated. Objective Last 24 Hour Vital Signs Date Time Temp Pulse Resp B/P Pulse Ox O2 Delivery O2 Flow Rate FiO2 02/08/17 12:30 69 119/49 02/08/17 11:48 97.5 60 22 75/45 96 Room Air 02/08/17 09:34 130/72 02/08/17 09:34 60 130/72 02/08/17 09:33 60 130/72 02/08/17 07:56 97.7 60 20 130/72 97 Room Air 02/08/17 04:00 97.9 60 20 115/61 97 Room Air 02/08/17 00:00 96.8 60 20 112/64 98 Room Air 02/07/17 20:26 64 126/73 02/07/17 20:00 97.7 64 20 121/71 95 Room Air 02/07/17 15:10 97.7 62 14 132/68 97 Room Air Intake and Output 02/07/17 02/08/17 19:00 07:00 Intake Total 1458.708 ml 930 ml Output Total 1150 ml Balance 308.708 ml 930 ml Intake Free Water 300 ml 330 ml IV Total 638.708 ml Tube Feeding 520 ml 600 ml Output Urine Total 1150 ml Laboratory Tests Test 02/07/17 20:50 Vancomycin Level Trough 15.4 ug/mL (5.0-12.0) H Microbiology Date/Time Source Procedure Growth Status 02/06/17 09:20 Blood Blood Culture - Preliminary NO GROWTH AFTER 48 HOURS Resulted 02/06/17 09:10 Blood Blood Culture - Preliminary NO GROWTH AFTER 48 HOURS Resulted HILDA ARAMBULA Feb 08, 2017 15:09
--- NOTE | 2017-02-08 16:09 | General Progress Note ---
Assessment/Plan Assessment/Plan ASSESSMENT: 1. Leukopenia is very likely related to infection. Is new onset. Sepsis rule out G-tube site infection with hypotension. Currently on abx 2. Anemia 2/2 chronic disease- anemia w/u had been ordered and has been reviewed 3. Percutaneous endoscopic gastrostomy tear. Recommend replacement possible site infection. Continue vancomycin and cefepime. 4. Cellulitis of the sacrum. The patient is already on cefepime and vancomycin. Recommend off-loading as needed. 5. Malfunctioning of the gastrostomy tube. Recommend replacement and gastrointestinal consult. RECS: - Monitor counts - Peripheral smear reviewed - Anemia w/u reviewed - Abx as per ID w/u - GI eval - GI ppx with zantac - Appreciate consultation! Subjective Constitutional: Reports: no symptoms HEENT: Reports: no symptoms Cardiovascular: Reports: no symptoms Respiratory: Reports: no symptoms Gastrointestinal/Abdominal: Reports: no symptoms Genitourinary: Reports: no symptoms Neurologic/Psychiatric: Reports: no symptoms Endocrine: Reports: no symptoms Hematologic/Lymphatic: Reports: no symptoms Allergies: Coded Allergies: AUBREY INHIBITORS (Verified Allergy, Unknown, ANGIOEDEMA, 09/17/12) Subjective no s/s of distress, no bleeding, no fevers Objective Last 24 Hour Vital Signs Date Time Temp Pulse Resp B/P Pulse Ox O2 Delivery O2 Flow Rate FiO2 02/08/17 15:40 98.4 60 21 96/55 97 Room Air 02/08/17 12:30 69 119/49 02/08/17 11:48 97.5 60 22 75/45 96 Room Air 02/08/17 09:34 130/72 02/08/17 09:34 60 130/72 02/08/17 09:33 60 130/72 02/08/17 07:56 97.7 60 20 130/72 97 Room Air 02/08/17 04:00 97.9 60 20 115/61 97 Room Air 02/08/17 00:00 96.8 60 20 112/64 98 Room Air 02/07/17 20:26 64 126/73 02/07/17 20:00 97.7 64 20 121/71 95 Room Air Intake and Output 02/07/17 02/08/17 19:00 07:00 Intake Total 1458.708 ml 930 ml Output Total 1150 ml Balance 308.708 ml 930 ml Intake Free Water 300 ml 330 ml IV Total 638.708 ml Tube Feeding 520 ml 600 ml Output Urine Total 1150 ml Laboratory Tests 02/07/17 20:50: Vancomycin Level Trough 15.4H Height (Feet): 5 Height (Inches): 8.00 Weight (Pounds): 180 General Appearance: WD/WN EENT: PERRL/EOMI Neck: non-tender Cardiovascular: normal peripheral pulses Respiratory/Chest: chest wall non-tender Abdomen: normal bowel sounds, other - peg tube Edema: no edema noted Leg (L), no edema noted Leg (R), no edema noted Pedal (L) , no edema noted Pedal (R), no edema noted Generalized Edema: trace edema Neurologic: oriented x 3 Skin: warm/dry Jax Alcaraz Feb 08, 2017 16:09
[2017-02-09] VITALS: BP 97/52
[2017-02-09] MEDS: NovoLOG Insulin Flexpen SUBQ SCH ×3 (00:49→12:55)
[2017-02-09 04:00] VITALS: BP 101/82
[2017-02-09 08:00] VITALS: BP 91/55
[2017-02-09 08:16] LABS: BASOPHILS % (AUTO) 0.9 % (0.0-2.0); EOSINOPHILS % (AUTO) 6.8 % (0.0-3.0); LYMPHOCYTES % (AUTO) 21.7 % (20.0-45.0); MEAN CORPUSCULAR HEMOGLOBIN 33.9 PG (27.0-31.0); MEAN CORPUSCULAR HGB CONC 33.1 G/DL (32.0-36.0); MEAN CORPUSCULAR VOLUME 103 FL (80-99); MEAN PLATELET VOLUME 8.6 FL (6.5-10.1); MONOCYTES % (AUTO) 11.3 % (1.0-10.0); NEUTROPHILS % (AUTO) 59.3 % (45.0-75.0); PLATELET COUNT 231 K/UL (150-450); RED BLOOD COUNT 2.98 M/UL (4.70-6.10); RED CELL DISTRIBUTION WIDTH 14.3 % (11.6-14.8); WHITE BLOOD COUNT 4.2 K/UL (4.8-10.8)
[2017-02-09 08:46] LABS: ALANINE AMINOTRANSFERASE 6 U/L (3-41); ALBUMIN/GLOBULIN RATIO 0.9 (1.0-2.7); ANION GAP 11 (5-15); ASPARTATE AMINO TRANSFERASE 14 U/L (5-40); CALCIUM 8.7 mg/dL (8.6-10.2); CARBON DIOXIDE 29 mEQ/L (20-30); CHLORIDE 99 mEQ/L (98-107); CREATININE 0.7 mg/dL (0.7-1.2); CRP QUANT 1.8 mg/dL (< 0.5); HEMOLYSIS 1; MAGNESIUM 1.8 mg/dL (1.7-2.5); PHOSPHORUS 2.6 mg/dL (2.5-4.8); POTASSIUM 4.3 mEQ/L (3.4-4.9); SODIUM 139 mEQ/L (135-145); TOTAL PROTEIN 5.7 g/dL (6.6-8.7); URIC ACID 4.6 mg/dL (3.0-7.5)
[2017-02-09] MEDS: Metoprolol Tartrate 12.5mg TAB GT SCH (09:00)
--- NOTE | 2017-02-09 09:18 | History and Physical Report ---
DATE OF ADMISSION: 02/05/2017 HISTORY OF PRESENT ILLNESS: The patient is doing well. G-tube. However, the patient was hypertensive in the ER, was admitted for hypertension. The patient did complain of some dizziness. Denied any fever or chills, abdominal pain or shortness of breath. PAST MEDICAL HISTORY: An adult male with atrial fibrillation and depression. History of BPH. Iron deficiency anemia, NIDDM, history of head and neck cancer, past history of having cancer tumor. History of CVA as well. ALLERGIES: AUBREY inhibitors. MEDICATION: Amiodarone Norvasc, Eliquis, clonidine, Cardura, Nexium, Proscar, Lasix, insulin, metoprolol and multivitamin. PAST SURGICAL HISTORY: Removal of the head and neck cancer. FAMILY HISTORY: Noncontributory. SOCIAL HISTORY: The patient has a history of smoking. No history of alcohol or intravenous drug use. Lives in a [facility]. REVIEW OF SYSTEMS: HEENT: Denies headaches. Respiratory: Denies shortness of breath. Denies cough. Cardiovascular: Denies chest pain. Gastrointestinal: Denies nausea, vomiting, or diarrhea. Extremities: Denies pain. Central Nervous System: Denies change in vision or speech pattern. PHYSICAL EXAMINATION: VITAL SIGNS: Temperature 98.1, pulse 61, blood pressure 110/60. HEENT: PERRLA. NECK: Supple. No lymphadenopathy. CHEST: Clear to auscultation. GASTROINTESTINAL: Soft, nontender, and nondistended. ABDOMEN: Soft. EXTREMITIES: 1+ edema. Reflexes are equal on both sides. Moves all four extremities. LABORATORY WORKUP: WBC 4.6, hemoglobin 10.6, and platelets of 231,000. Sodium 135. Potassium 5.1. BUN 35. Creatinine 1.1. Glucose of 89. ASSESSMENT AND PLAN: 1. Hypertension. 2. Elevated potassium status post G-tube by Dr. Goetz. Because the patient will be maintained in the G-tube, will be monitored for the hypertension. 3. Dr. Huber has been consulted as well as Dr. Goetz. 4. Dr. Huber, Dr. Granger, Dr. Goetz and Dr. Mcgrath have been consulted to rule out sepsis as well as for hypertension and for monitoring of PT and G-tube placement. Ali Elizabeth Pereira DR: MICHELLE JOB#: [id number] CC:
[2017-02-09] MEDS: Cefepime HCl 1 GM in D5W 55 ML IVPB SCH (10:31)
[2017-02-09] MEDS: Amiodarone 200mg tab GT SCH (10:32)
[2017-02-09] MEDS: Eliquis 2.5mg tablet GT SCH (10:32)
[2017-02-09] MEDS: Valproic Acid 250mg/5ml Liquid GT SCH (10:32)
[2017-02-09] MEDS: BuPROPion 75mg Tab ORAL SCH (10:33)
[2017-02-09] MEDS: Multivitamin w/Minerals tab ORAL SCH (10:34)
--- NOTE | 2017-02-09 10:34 | GI Progress Note ---
Assessment/Plan Problems: (1) Ileus ICD Codes: K56.7 - Ileus, unspecified SNOMED: 924343359 (2) Hypothyroidism ICD Codes: E03.9 - Hypothyroidism, unspecified SNOMED: 84570189 (3) Vomiting ICD Codes: R11.10 - Vomiting, unspecified SNOMED: 310897508 (4) Malfunction of gastrostomy tube ICD Codes: K94.23 - Gastrostomy malfunction SNOMED: 602984484 (5) PEG (percutaneous endoscopic gastrostomy) adjustment/replacement/removal ICD Codes: Z43.1 - Encounter for attention to gastrostomy SNOMED: 896173750 (6) Dysphagia ICD Codes: R13.10 - Dysphagia SNOMED: 76162125 (7) Altered mental status Status: stable Status Narrative Discussed with Dr. Goetz. Assessment/Plan ok for DC per GI standpoint s/p GT replacement continue GTF's per dietary OB stool Rec ENT eval for swollen L face fu ST evaluation H2B fu labs Subjective Gastrointestinal/Abdominal: Reports: no symptoms Objective Last 24 Hour Vital Signs Date Time Temp Pulse Resp B/P Pulse Ox O2 Delivery O2 Flow Rate FiO2 02/09/17 08:00 96.8 60 20 91/55 97 Room Air 02/09/17 04:00 97.5 58 20 101/82 96 Room Air 02/09/17 00:00 65 19 97/52 97 Room Air 02/08/17 20:17 60 108/61 02/08/17 20:00 97.7 60 20 108/61 96 Room Air 02/08/17 15:40 98.4 60 21 96/55 97 Room Air 02/08/17 12:30 69 119/49 02/08/17 11:48 97.5 60 22 75/45 96 Room Air Intake and Output 02/08/17 02/09/17 19:00 07:00 Intake Total 1352.4 ml 1180.000 ml Output Total 1700 ml Balance -347.6 ml 1180.000 ml Intake Free Water 330 ml 300 ml IV Total 422.4 ml 330.000 ml Tube Feeding 600 ml 550 ml Output Urine Total 1700 ml Laboratory Tests Test 02/09/17 07:50 White Blood Count 4.2 K/UL (4.8-10.8) L Red Blood Count 2.98 M/UL (4.70-6.10) L Hemoglobin 10.1 G/DL (14.2-18.0) L Hematocrit 30.5 % (42.0-52.0) L Mean Corpuscular Volume 103 FL (80-99) H Mean Corpuscular Hemoglobin 33.9 PG (27.0-31.0) H Mean Corpuscular Hemoglobin Concent 33.1 G/DL (32.0-36.0) Red Cell Distribution Width 14.3 % (11.6-14.8) Platelet Count 231 K/UL (150-450) Mean Platelet Volume 8.6 FL (6.5-10.1) Neutrophils (%) (Auto) 59.3 % (45.0-75.0) Lymphocytes (%) (Auto) 21.7 % (20.0-45.0) Monocytes (%) (Auto) 11.3 % (1.0-10.0) H Eosinophils (%) (Auto) 6.8 % (0.0-3.0) H Basophils (%) (Auto) 0.9 % (0.0-2.0) Sodium Level 139 mEQ/L (135-145) Potassium Level 4.3 mEQ/L (3.4-4.9) Chloride Level 99 mEQ/L (98-107) Carbon Dioxide Level 29 mEQ/L (20-30) Anion Gap 11 (5-15) Blood Urea Nitrogen 21 mg/dL (7-23) Creatinine 0.7 mg/dL (0.7-1.2) Estimat Glomerular Filtration Rate mL/min (>60) Glucose Level 87 mg/dL (74-106) Uric Acid 4.6 mg/dL (3.0-7.5) Calcium Level 8.7 mg/dL (8.6-10.2) Phosphorus Level 2.6 mg/dL (2.5-4.8) Magnesium Level 1.8 mg/dL (1.7-2.5) Total Bilirubin 0.2 mg/dL (0.0-1.2) Aspartate Amino Transf (AST/SGOT) 14 U/L (5-40) Alanine Aminotransferase (ALT/SGPT) 6 U/L (3-41) Alkaline Phosphatase 83 U/L (40-129) C-Reactive Protein, Quantitative 1.8 mg/dL (< 0.5) H Pro-B-Type Natriuretic Peptide 2549 pg/mL (0-450) H Total Protein 5.7 g/dL (6.6-8.7) L Albumin 2.7 g/dL (3.5-5.2) L Globulin 3.0 g/dL Albumin/Globulin Ratio 0.9 (1.0-2.7) L Height (Feet): 5 Height (Inches): 8.00 Weight (Pounds): 180 General Appearance: no apparent distress, alert Cardiovascular: normal rate Respiratory/Chest: normal breath sounds, no respiratory distress Abdominal Exam: normal bowel sounds, non tender, GT site - c/d/i Trinh Bonilla N.P. February 09, 2017 10:34
[2017-02-09] MEDS: Vancomycin 750mg/D5W 275ml IVPB SCH ×2 (11:28)
[2017-02-09 12:00] VITALS: BP 139/61
--- NOTE | 2017-02-09 12:04 | Wound Care Consultation ---
Wound Assessment Wound Assessment : Wound Number: #1 Wound Present on Admission: Yes New Wound: No Status Change of Wound: No Wound Location Body Site Modif: mid Wound Location Body Site: sacral Wound Type: pressure ulcer Eduardo Test: Does not Eduardo Pressure Ulcer Stage: deep tissue injury Wound Thickness: Full Thickness Wound Length: 6.0 Wound Width: 6.0 Wound Depth: utd Percent of Wound [place]/Red: 50 Percent of Wound Purple/Maroon: 50 Wound Drainage Amount: None Wound Drainage Odor: None/Absent Tissue Surrounding Wound: Intact Wound General Appearance: Reddened Wound Comment #1 sacral deep tissue injury. Recommendation. - apply low air loss overlay mattress SPR. - Local wound care as ordered. - Turn and reposition. -Keep clean and dry. -Optimize nutrition. -Offload affected site. -Offload heels and feet. -Assess and notify MD for any further changes of condition in skin noted. JUANA PRASAD February 09, 2017 12:04
--- NOTE | 2017-02-09 14:13 | General Progress Note ---
Assessment/Plan Status: stable - from renal stand point Assessment/Plan status; - Dehydration: Low Na and high K - Anemia - HypoTension - HypoThyroidism - HTN (hypertension) - History of CVA (cerebrovascular accident) - Diabetes - Thyroid mass of unclear etiology - s/p Vanco induced renal failure Plan: down on Hydrate- Monitor lytes and Monitor renal parameters- Keep BP over 100 syst [place]ett Synthroid Subjective ROS Limited/Unobtainable: No Constitutional: Reports: malaise Allergies: Coded Allergies: AUBREY INHIBITORS (Verified Allergy, Unknown, ANGIOEDEMA, 09/17/12) Objective Last 24 Hour Vital Signs Date Time Temp Pulse Resp B/P Pulse Ox O2 Delivery O2 Flow Rate FiO2 02/09/17 12:00 97.7 64 20 139/61 94 Room Air 02/09/17 09:00 60 91/55 02/09/17 09:00 60 91/55 02/09/17 08:00 96.8 60 20 91/55 97 Room Air 02/09/17 04:00 97.5 58 20 101/82 96 Room Air 02/09/17 00:00 65 19 97/52 97 Room Air 02/08/17 20:17 60 108/61 02/08/17 20:00 97.7 60 20 108/61 96 Room Air 02/08/17 15:40 98.4 60 21 96/55 97 Room Air Intake and Output 02/08/17 02/09/17 19:00 07:00 Intake Total 1352.4 ml 1180.000 ml Output Total 1700 ml Balance -347.6 ml 1180.000 ml Intake Free Water 330 ml 300 ml IV Total 422.4 ml 330.000 ml Tube Feeding 600 ml 550 ml Output Urine Total 1700 ml Laboratory Tests 02/09/17 07:50: White Blood Count 4.2L, Red Blood Count 2.98L, Hemoglobin 10.1L, Hematocrit 30.5L, Mean Corpuscular Volume 103H, Mean Corpuscular Hemoglobin 33.9H, Mean Corpuscular Hemoglobin Concent 33.1, Red Cell Distribution Width 14.3, Platelet Count 231, Mean Platelet Volume 8.6, Neutrophils (%) (Auto) 59.3, Lymphocytes (% ) (Auto) 21.7, Monocytes (%) (Auto) 11.3H, Eosinophils (%) (Auto) 6.8H, Basophils (%) (Auto) 0.9, Sodium Level 139, Potassium Level 4.3, Chloride Level 99, Carbon Dioxide Level 29, Anion Gap 11, Blood Urea Nitrogen 21, Creatinine 0.7, Estimat Glomerular Filtration Rate , Glucose Level 87, Uric Acid 4.6, Calcium Level 8.7, Phosphorus Level 2.6, Magnesium Level 1.8, Total Bilirubin 0.2, Aspartate Amino Transf (AST/SGOT) 14, Alanine Aminotransferase (ALT/SGPT) 6 , Alkaline Phosphatase 83, C-Reactive Protein, Quantitative 1.8H, Pro-B-Type Natriuretic Peptide 2549H, Total Protein 5.7L, Albumin 2.7L, Globulin 3.0, Albumin/Globulin Ratio 0.9L Height (Feet): 5 Height (Inches): 8.00 Weight (Pounds): 180 General Appearance: no apparent distress Cardiovascular: normal peripheral pulses Respiratory/Chest: decreased breath sounds Abdomen: soft Objective PE not changed DARIN QUESADA February 09, 2017 14:13
--- NOTE | 2017-02-09 15:05 | General Progress Note ---
Assessment/Plan Problem List: (1) Hypotension ICD Codes: I95.9 - Hypotension, unspecified SNOMED: 00254527 Qualifiers: Qualified Codes: I95.9 - Hypotension, unspecified (2) Dementia ICD Codes: F03.90 - Dementia SNOMED: 36123669 (3) History of CVA (cerebrovascular accident) ICD Codes: Z86.73 - History of CVA (cerebrovascular accident) SNOMED: 771313659 (4) Dysphagia ICD Codes: R13.10 - Dysphagia SNOMED: 41040097 (5) PEG (percutaneous endoscopic gastrostomy) adjustment/replacement/removal ICD Codes: Z43.1 - Encounter for attention to gastrostomy SNOMED: 952352044 (6) Diabetes ICD Codes: E11.9 - Diabetes SNOMED: 76159367 (7) Thyroid mass of unclear etiology ICD Codes: E07.89 - Other specified disorders of thyroid SNOMED: 505895421 (8) Hypothyroidism ICD Codes: E03.9 - Hypothyroidism, unspecified SNOMED: 87826099 Status: progressing Assessment/Plan afebrile s/p peg dc to snf s/p exchange of peg Subjective ROS Limited/Unobtainable: Yes Constitutional: Reports: no symptoms Allergies: Coded Allergies: AUBREY INHIBITORS (Verified Allergy, Unknown, ANGIOEDEMA, 09/17/12) Objective Last 24 Hour Vital Signs Date Time Temp Pulse Resp B/P Pulse Ox O2 Delivery O2 Flow Rate FiO2 02/09/17 12:00 97.7 64 20 139/61 94 Room Air 02/09/17 09:00 60 91/55 02/09/17 09:00 60 91/55 02/09/17 08:00 96.8 60 20 91/55 97 Room Air 02/09/17 04:00 97.5 58 20 101/82 96 Room Air 02/09/17 00:00 65 19 97/52 97 Room Air 02/08/17 20:17 60 108/61 02/08/17 20:00 97.7 60 20 108/61 96 Room Air 02/08/17 15:40 98.4 60 21 96/55 97 Room Air Intake and Output 02/08/17 02/09/17 19:00 07:00 Intake Total 1352.4 ml 1180.000 ml Output Total 1700 ml Balance -347.6 ml 1180.000 ml Intake Free Water 330 ml 300 ml IV Total 422.4 ml 330.000 ml Tube Feeding 600 ml 550 ml Output Urine Total 1700 ml Laboratory Tests 02/09/17 07:50: White Blood Count 4.2L, Red Blood Count 2.98L, Hemoglobin 10.1L, Hematocrit 30.5L, Mean Corpuscular Volume 103H, Mean Corpuscular Hemoglobin 33.9H, Mean Corpuscular Hemoglobin Concent 33.1, Red Cell Distribution Width 14.3, Platelet Count 231, Mean Platelet Volume 8.6, Neutrophils (%) (Auto) 59.3, Lymphocytes (% ) (Auto) 21.7, Monocytes (%) (Auto) 11.3H, Eosinophils (%) (Auto) 6.8H, Basophils (%) (Auto) 0.9, Sodium Level 139, Potassium Level 4.3, Chloride Level 99, Carbon Dioxide Level 29, Anion Gap 11, Blood Urea Nitrogen 21, Creatinine 0.7, Estimat Glomerular Filtration Rate , Glucose Level 87, Uric Acid 4.6, Calcium Level 8.7, Phosphorus Level 2.6, Magnesium Level 1.8, Total Bilirubin 0.2, Aspartate Amino Transf (AST/SGOT) 14, Alanine Aminotransferase (ALT/SGPT) 6 , Alkaline Phosphatase 83, C-Reactive Protein, Quantitative 1.8H, Pro-B-Type Natriuretic Peptide 2549H, Total Protein 5.7L, Albumin 2.7L, Globulin 3.0, Albumin/Globulin Ratio 0.9L Height (Feet): 5 Height (Inches): 8.00 Weight (Pounds): 180 EENT: PERRL/EOMI Neck: supple Cardiovascular: normal rate Respiratory/Chest: lungs clear Abdomen: soft Laina Pereira MD February 09, 2017 15:05
--- NOTE | 2017-02-09 15:17 | Infectious Diseases Prog Note ---
Assessment/Plan Problems: (1) Sepsis Assessment & Plan: ruled out with negative blood culture, will stop vancomycin and cefepime (2) Hypotension Assessment & Plan: not due to sepsis, blood culture is negative , will D/C vancomycin and cefepime (3) PEG (percutaneous endoscopic gastrostomy) adjustment/replacement/removal Assessment & Plan: with possible site infection, treated with vancomycin and cefepime empirically (4) Malfunction of gastrostomy tube Assessment & Plan: S/P replacement , GI is following (5) Cellulitis Assessment & Plan: of the sacrum, improved on vancomycin and cefepime, recommend off loading Subjective Constitutional: Reports: no symptoms HEENT: Reports: no symptoms Respiratory: Reports: no symptoms Cardiovascular: Reports: no symptoms Gastrointestinal/Abdominal: Reports: no symptoms Genitourinary: Reports: no symptoms Neurologic: Reports: no symptoms Psychiatric: Reports: no symptoms Skin: Reports: no symptoms Allergies: Coded Allergies: AUBREY INHIBITORS (Verified Allergy, Unknown, ANGIOEDEMA, 09/17/12) Objective Vital Signs Last 24 Hour Vital Signs Date Time Temp Pulse Resp B/P Pulse Ox O2 Delivery O2 Flow Rate FiO2 02/09/17 12:00 97.7 64 20 139/61 94 Room Air 02/09/17 09:00 60 91/55 02/09/17 09:00 60 91/55 02/09/17 08:00 96.8 60 20 91/55 97 Room Air 02/09/17 04:00 97.5 58 20 101/82 96 Room Air 02/09/17 00:00 65 19 97/52 97 Room Air 02/08/17 20:17 60 108/61 02/08/17 20:00 97.7 60 20 108/61 96 Room Air 02/08/17 15:40 98.4 60 21 96/55 97 Room Air Height (Feet): 5 Height (Inches): 8.00 Weight (Pounds): 180 General Appearance: WD/WN, no acute distress HEENT: normocephalic, atraumatic, anicteric, mucous membranes moist Respiratory/Chest: chest wall non-tender, lungs clear, normal breath sounds, no respiratory distress, no accessory muscle use Cardiovascular: normal peripheral pulses, normal rate, regular rhythm, no gallop/murmur Abdomen: normal bowel sounds, soft, non tender, no organomegaly, non distended , no mass Extremities: no cyanosis, no clubbing Skin: no rash, no lesions Laboratory Tests Test 02/09/17 07:50 White Blood Count 4.2 K/UL (4.8-10.8) L Red Blood Count 2.98 M/UL (4.70-6.10) L Hemoglobin 10.1 G/DL (14.2-18.0) L Hematocrit 30.5 % (42.0-52.0) L Mean Corpuscular Volume 103 FL (80-99) H Mean Corpuscular Hemoglobin 33.9 PG (27.0-31.0) H Mean Corpuscular Hemoglobin Concent 33.1 G/DL (32.0-36.0) Red Cell Distribution Width 14.3 % (11.6-14.8) Platelet Count 231 K/UL (150-450) Mean Platelet Volume 8.6 FL (6.5-10.1) Neutrophils (%) (Auto) 59.3 % (45.0-75.0) Lymphocytes (%) (Auto) 21.7 % (20.0-45.0) Monocytes (%) (Auto) 11.3 % (1.0-10.0) H Eosinophils (%) (Auto) 6.8 % (0.0-3.0) H Basophils (%) (Auto) 0.9 % (0.0-2.0) Sodium Level 139 mEQ/L (135-145) Potassium Level 4.3 mEQ/L (3.4-4.9) Chloride Level 99 mEQ/L (98-107) Carbon Dioxide Level 29 mEQ/L (20-30) Anion Gap 11 (5-15) Blood Urea Nitrogen 21 mg/dL (7-23) Creatinine 0.7 mg/dL (0.7-1.2) Estimat Glomerular Filtration Rate mL/min (>60) Glucose Level 87 mg/dL (74-106) Uric Acid 4.6 mg/dL (3.0-7.5) Calcium Level 8.7 mg/dL (8.6-10.2) Phosphorus Level 2.6 mg/dL (2.5-4.8) Magnesium Level 1.8 mg/dL (1.7-2.5) Total Bilirubin 0.2 mg/dL (0.0-1.2) Aspartate Amino Transf (AST/SGOT) 14 U/L (5-40) Alanine Aminotransferase (ALT/SGPT) 6 U/L (3-41) Alkaline Phosphatase 83 U/L (40-129) C-Reactive Protein, Quantitative 1.8 mg/dL (< 0.5) H Pro-B-Type Natriuretic Peptide 2549 pg/mL (0-450) H Total Protein 5.7 g/dL (6.6-8.7) L Albumin 2.7 g/dL (3.5-5.2) L Globulin 3.0 g/dL Albumin/Globulin Ratio 0.9 (1.0-2.7) L Current Medications Medications (Trade) Dose Ordered Sig/Yousuf Route PRN Reason Start Time Stop Time Status Last Admin Dose Admin Acetaminophen (Tylenol) 650 mg Q4H PRN GT Fever/Headache/Mild Pain 02/07/17 16:00 03/09/17 15:59 Amiodarone HCl (Cordarone) 100 mg DAILY GT 02/08/17 09:00 03/10/17 08:59 02/09/17 10:32 Amlodipine Besylate (Norvasc) 2.5 mg DAILY GT 02/09/17 09:00 03/11/17 08:59 Apixaban (Eliquis) 2.5 mg Q12HR GT 02/07/17 21:00 03/09/17 20:59 02/09/17 10:32 Bupropion HCl (Wellbutrin) 75 mg Q12HR ORAL 02/07/17 21:00 03/09/17 20:59 02/09/17 10:33 Cefepime HCl 1 gm/ Dextrose 55 ml @ 110 mls/hr EVERY 12 HOURS IVPB 02/06/17 09:00 02/13/17 08:59 02/09/17 10:31 Clonidine HCl (Catapres) 0.1 mg Q6H PRN ORAL SBP> 160 or DBP>90 02/07/17 16:00 03/09/17 15:59 Dextrose (Dextrose 50%) STAT PRN IV Hypoglycemia 02/06/17 19:00 03/08/17 18:59 Finasteride (Proscar) 5 mg DAILY GT 02/08/17 09:00 03/10/17 08:59 02/09/17 10:33 Furosemide (Lasix) 20 mg DAILY GT 02/08/17 09:00 03/10/17 08:59 02/09/17 10:32 Insulin Aspart (NovoLOG) EVERY 6 HOURS SUBQ 02/07/17 06:00 03/09/17 05:59 02/09/17 12:55 Levothyroxine Sodium (Synthroid) 50 mcg DAILY@0630 GT 02/08/17 06:30 03/10/17 06:29 02/09/17 05:41 Magnesium Hydroxide (Mom) 30 ml DAILYPRN PRN ORAL Constipation 02/07/17 16:00 03/09/17 15:59 Metoprolol Tartrate (Lopressor) 12.5 mg Q12HR GT 02/07/17 21:00 03/09/17 20:59 02/08/17 09:34 Multivitamins Therapeutic (Therapeutic Multivitamin) 1 ea DAILY ORAL 02/08/17 09:00 03/10/17 08:59 02/09/17 10:34 Ranitidine HCl (Zantac) 150 mg TWICE A DAY GT 02/07/17 18:00 03/09/17 17:59 02/09/17 10:33 Valproic Acid (Depakene) 250 mg DAILY GT 02/08/17 09:00 03/10/17 08:59 02/09/17 10:32 Vancomycin HCl 1 ea 1 ea DAILY PRN MISC Per rx protocol 02/06/17 08:00 03/08/17 07:59 Vancomycin HCl/ Dextrose (Vancomycin/D5W) 275 ml @ 183.708 mls/hr Q12HR@1000,2200 IVPB 02/06/17 10:00 02/11/17 09:59 02/09/17 11:28 Aida Frederick M.D. February 09, 2017 15:17
--- NOTE | 2017-02-10 00:03 | General Progress Note ---
Assessment/Plan Assessment/Plan ASSESSMENT: 1. Leukopenia is very likely related to infection. Is new onset. Does not appear to be gtube infection, abx to be stopped today 2. Anemia 2/2 chronic disease- anemia w/u has been reviewed 3. Percutaneous endoscopic gastrostomy tear. Recommend replacement possible site infection. now off abx 4. Cellulitis of the sacrum. improved 5. Malfunctioning of the gastrostomy tube. replaced RECS: - Monitor counts - Peripheral smear reviewed - Anemia w/u reviewed - Abx as per ID w/u - GI eval - GI ppx with zantac - Appreciate consultation Subjective Date patient seen: February 09, 2017 Constitutional: Reports: no symptoms HEENT: Reports: no symptoms Cardiovascular: Reports: no symptoms Respiratory: Reports: no symptoms Gastrointestinal/Abdominal: Reports: no symptoms Genitourinary: Reports: no symptoms Neurologic/Psychiatric: Reports: no symptoms Endocrine: Reports: no symptoms Hematologic/Lymphatic: Reports: anemia Allergies: Coded Allergies: AUBREY INHIBITORS (Verified Allergy, Unknown, ANGIOEDEMA, 09/17/12) Subjective no s/s of distress, no bleeding, no fevers, stable for d/c Objective Last 24 Hour Vital Signs Date Time Temp Pulse Resp B/P Pulse Ox O2 Delivery O2 Flow Rate FiO2 02/09/17 12:00 97.7 64 20 139/61 94 Room Air 02/09/17 09:00 60 91/55 02/09/17 09:00 60 91/55 02/09/17 08:00 96.8 60 20 91/55 97 Room Air 02/09/17 04:00 97.5 58 20 101/82 96 Room Air Intake and Output 02/09/17 02/10/17 19:00 07:00 Intake Total 470 ml Balance 470 ml Intake Free Water 120 ml Tube Feeding 350 ml # Bowel Movements 1 Laboratory Tests 02/09/17 07:50: White Blood Count 4.2L, Red Blood Count 2.98L, Hemoglobin 10.1L, Hematocrit 30.5L, Mean Corpuscular Volume 103H, Mean Corpuscular Hemoglobin 33.9H, Mean Corpuscular Hemoglobin Concent 33.1, Red Cell Distribution Width 14.3, Platelet Count 231, Mean Platelet Volume 8.6, Neutrophils (%) (Auto) 59.3, Lymphocytes (% ) (Auto) 21.7, Monocytes (%) (Auto) 11.3H, Eosinophils (%) (Auto) 6.8H, Basophils (%) (Auto) 0.9, Sodium Level 139, Potassium Level 4.3, Chloride Level 99, Carbon Dioxide Level 29, Anion Gap 11, Blood Urea Nitrogen 21, Creatinine 0.7, Estimat Glomerular Filtration Rate , Glucose Level 87, Uric Acid 4.6, Calcium Level 8.7, Phosphorus Level 2.6, Magnesium Level 1.8, Total Bilirubin 0.2, Aspartate Amino Transf (AST/SGOT) 14, Alanine Aminotransferase (ALT/SGPT) 6 , Alkaline Phosphatase 83, C-Reactive Protein, Quantitative 1.8H, Pro-B-Type Natriuretic Peptide 2549H, Total Protein 5.7L, Albumin 2.7L, Globulin 3.0, Albumin/Globulin Ratio 0.9L Height (Feet): 5 Height (Inches): 8.00 Weight (Pounds): 180 General Appearance: no apparent distress EENT: normal ENT inspection Neck: supple Cardiovascular: normal rate Abdomen: soft Genitourinary/Rectal: normal rectal exam Edema: no edema noted Leg (L), no edema noted Leg (R) Edema: mild edema Neurologic: alert Jax Alcaraz February 10, 2017 00:03
--- NOTE | 2017-02-10 08:46 | Cardiology Report ---
APPROVED REPORT EKG Measurement Heart [id number] ME 242P [id number] Atrial paced ventricular sensed rhythm Electronic pacemaker Occasional premature ventricular complexes Low voltage QRS Cannot rule out Anterior infarct, age undetermined Abnormal ECG
--- NOTE | 2017-02-11 08:57 | Discharge Summary ---
Discharge Summary Hospital Course Date of Admission Feb 05, 2017 at 16:08 Date of Discharge February 09, 2017 at 15:27 Admitting Diagnosis dehydration/malfunctioning gtube HPI Darek Garcia is a 76 year old male who was admitted on Feb 05, 2017 at 16: 08 for Dehydration,G Tube Malfunction Hospital Course dc summary#[id number] Discharge Medications Continued Medications: Acetaminophen (Acetaminophen) 650 Mg/20.3 Ml Soln 650 MG ORAL Q4HR, TAB PRN MILD PAIN AND TEMP>100.6 Amiodarone Hcl* (Pacerone*) 100 Mg Tablet 100 MG GT DAILY, TAB Amlodipine Besylate* (Amlodipine Besylate*) 5 Mg Tablet 5 MG GT DAILY, TAB Apixaban (Eliquis) 2.5 Mg Tablet 2.5 MG GT BID, TAB Bupropion Hcl* (Bupropion Hcl*) 75 Mg Tablet 75 MG PO BID, TAB Clonidine Hcl* (Catapres*) 0.1 Mg Tablet 0.1 MG ORAL EVERY 6 HOURS, TAB PRN SBP>160 OR DBP>90 Clonidine Hcl* (Catapres*) 0.1 Mg Tablet 0.1 MG GT DAILY, TAB Cranberry Extract (Cranberry) 200 Mg Capsule 405 MG GT DAILY, CAP Doxazosin Mesylate* (Cardura*) 1 Mg Tablet 2 MG GT BEDTIME, TAB Esomeprazole Magnesium (Nexium) 40 Mg Suspdr.pkt 40 MG GT DAILY, PKT Esomeprazole Magnesium (Nexium) 40 Mg Capsule.dr 40 MG GT DAILY, CAP Ferrous Sulfate, Dried (Ferrous Sulfate) 500 Gm Powder 325 GM ORAL DAILY, GM Finasteride* (Proscar*) 5 Mg Tablet 5 MG GT DAILY, #30 TAB 0 Refills Furosemide* (Lasix*) 20 Mg Tablet 20 MG GT DAILY, TAB Insulin Aspart* (Novolog*) 100 Unit/1 Ml Insuln.pen 0 SUBQ, EA 0 Refills BS-150-199=1 UNIT,200-249=2,250-299=3,300-349=4,350-400=5,BS>400 CALL Insulin Regular, Human* (Novolin R*) 100 Unit/1 Ml Vial 0 SUBQ .SLIDING SCALE, UNITS Inject subcutaneously per sliding scale orders Magnesium Hydroxide* (Milk Of Magnesia*) 400 Mg/5 Ml Oral.susp 30 ML ORAL DAILY PRN for Constipation, ML Metformin Hcl* (Glucophage*) 500 Mg Tablet 500 MG GT TWICE A DAY, TAB Metoprolol Tartrate* (Metoprolol Tartrate*) 25 Mg Tablet 12.5 MG GT TWICE A DAY, TAB Multivitamin With Minerals (Multivitamins With Minerals*) 1 Each Tablet 1 TAB GT DAILY, TAB Potassium Chloride (Potassium Chloride) 10 Meq Tab.er.prt 10 MEQ GT DAILY, TAB Valproate Sodium (Valproic Acid) 250 Mg/5 Ml Solution 250 MG GT DAILY Discharge Condition Upon Discharge: stable Discharge Disposition Patient was discharged to SNF/Subacute Facility(03) Discharge Diagnoses: Discharge Instructions Discharge Instructions Special Instructions I have been assigned to complete a D/C Summary on this account. I was not involved in the patient management Lyndsay Bishop NP (Vanchtein) February 11, 2017 08:57
--- NOTE | 2017-02-11 22:50 | Discharge Summary 2 SIG ---
DATE OF ADMISSION: 02/05/2017 DATE OF DISCHARGE: 02/09/2017 The patient was admitted under Dr. Pereira. REASON FOR ADMISSION: The patient is a 76-year-old male with a history of atrial fibrillation, hypertension, pacemaker, asthma, diabetes, COPD, dysphagia, G-tube, history of CVA, and dementia, who was brought to the emergency room for evaluation because nursing staff at [facility] noted a tear in his G-tube. GI specialist was requested in the emergency room and G-tube was replaced right in the emergency room. Workup in the emergency room revealed no leukocytosis, mild anemia, hemoglobin 10.6 and hematocrit 33.7. Potassium 5.1, sodium 134, BUN 35, and creatinine 1.1. The patient's blood pressure was on the low side, 90/50. The patient was admitted for further management to the telemetry floor. The patient's admitting diagnoses include G-tube malfunctioning, status post replacement, hypertension, and anemia. HOSPITAL STAY: The patient was initially on the IV fluids. Blood pressure improved. Front Sight Attacher followed. According to the packer inspector, the patient has dehydration as demonstrated by high potassium and low sodium, and he recommended hydration. He recommended to monitor electrolytes, and renal parameters were monitored. Blood pressure was kept above 100 systolic. Nephrotoxics were avoided. Renal parameters were stable prior to discharge. GI closely followed the patient. The patient restarted NG tube feeding. Strict aspiration precaution maintained. The patient was able to tolerate tube feeding. Anemia workup was initiated. Anemia workup revealed low iron. Stool OB was not collected. Stable B12 and folate. The patient is on iron supplements. residential facility would be continued prior to discharge. Infectious disease doctor followed the patient to rule out sepsis. Initially, blood cultures were negative. Antibiotic was discontinued. ID recommended to observe the patient off antibiotics. The patient is with sacral deep tissue injury and cellulitis, status post treatment with antibiotics. Wound care nurse has seen the patient and recommended a [id number] mattress. Venous duplex of bilateral lower extremities was negative. Again, blood culture was negative. Urinalysis was negative. Chest x-ray was negative. No evidence of sepsis. Lipid panel was stable. TSH was checked and noted elevated TSH, however trending down. The patient on the previous admission was noted to have multiple thyroid nodules and subsequently on the previous admission he had undergone fine needle aspiration. Biopsy revealed benign thyroid nodule. The patient needs to monitor TSH as well as full thyroid panel as an outpatient and may need to start on the Synthroid. Cardiology followed the patient. The patient was in atrial fibrillation. Rate was controlled. Eliquis for anticoagulation was continued. Pulmonary status was stable. Supplemental oxygen and pulmonary toilet provided as needed. The patient's pulse oximetry was stable on room air. Blood sugar was managed with sliding scale of insulin and was stable. Blood pressure medications were on hold due to the low blood pressure. Antihypertensive medications have holding parameters in the detention and eventually probably may be discontinued. The patient was stable for discharge. DISCHARGE DIAGNOSES: 1. Hypertension, resolved. 2. G-tube malfunction, status post replacement. 3. Dysphagia, G-tube. 4. Anemia of chronic disease, iron-deficiency anemia. 5. Dehydration, resolved. 6. Diabetes mellitus. 7. Multiple right thyroid nodules with elevated TSH. 8. Dementia. 9. Pacemaker. 10. Sacral cellulitis with sacral deep tissue injury. 11. Diabetes mellitus. 12. Chronic obstructive pulmonary disease. 13. History of cerebrovascular accident. 14. Atrial fibrillation. DISCHARGE MEDICATIONS: See medication reconciliation list. DISCHARGE INSTRUCTIONS: The patient is discharged to a [facility] facility. Follow up with the doctor at the facility. Recommended full thyroid function tests as an outpatient. Likely may need thyroid supplement. Laina Pereira M.D. I have been assigned to dictate discharge summary on this account and I was not involved in the patient's management. Lyndsay Bishop (vanchtein) N.PLinda DR: BRANDON JOB#: [id number] CC:
== END 2017-02-09 15:27 | DRG 394 ==
LOC: EDBD 14:08 → EMR 14:45 → EDBEDREQ 15:54 → 4E 16:08 → EDBEDREQ 16:33 → 4E 18:26
DX: K94.23 Gastrostomy malfunction (principal); L03.312 Cellulitis of back [any part except buttock and flank]; L89.150 Pressure ulcer of sacral region, unstageable; I95.9 Hypotension, unspecified; I48.91 Unspecified atrial fibrillation; J44.9 Chronic obstructive pulmonary disease, unspecified; F03.90 Unspecified dementia, unspecified severity, without behavioral disturbance, psychotic disturbance, mood disturbance, and anxiety; R13.10 Dysphagia, unspecified; Y83.3 Surgical operation with formation of external stoma as the cause of abnormal reaction of the patient, or of later complication, without mention of misadventure at the time of the procedure; I10 Essential (primary) hypertension; Z86.73 Personal history of transient ischemic attack (TIA), and cerebral infarction without residual deficits; D63.8 Anemia in other chronic diseases classified elsewhere; D50.9 Iron deficiency anemia, unspecified; E11.9 Type 2 diabetes mellitus without complications; E04.2 Nontoxic multinodular goiter; Z95.0 Presence of cardiac pacemaker; F32.9 Major depressive disorder, single episode, unspecified; N40.0 Benign prostatic hyperplasia without lower urinary tract symptoms; Z79.4 Long term (current) use of insulin; Z85.89 Personal history of malignant neoplasm of other organs and systems; Z87.891 Personal history of nicotine dependence; Z91.09 Other allergy status, other than to drugs and biological substances; E03.9 Hypothyroidism, unspecified; F99 Mental disorder, not otherwise specified; Z92.3 Personal history of irradiation
CPT/HCPCS: 36415; 43760; 71010; 80053; 80061; 80202; 81003; 82607; 82728; 82746; 82962; 83036; 83540; 83550; 83735; 83880; 84100; 84443; 84484; 84550; 85025; 86140; 87040; 93005; 93970; J1815

== ENCOUNTER 2017-03-18 17:30 | Inpatient (IN) | payer MEDICARE, MEDICAID ==
[~2017-03-18] VITALS: Ht 160 cm; Wt 65.8 kg
[~2017-03-18 17:30] MED LIST changes: +BUPROPION HCL75 MG PO; +FERROUS SULFAT500 G1 ORAL; +LOPRESSOR5 MG/5 ML GT; +NEXIUM40 MG GT; +WELLBUTRIN SR150 M1 GT
[2017-03-18] MEDS ORDERED: Vancomycin 1 GM in NS 275 ML IV ONE (17:45)
[2017-03-18] MEDS ORDERED: Morphine Sulfate 4mg/ml Inj IVP ONE (17:45)
[2017-03-18] MEDS ORDERED: CATAPRES0.1 MG GT (17:47)
[2017-03-18] MEDS ORDERED: GLUCOPHAGE500 MG GT (17:49)
[2017-03-18] MEDS ORDERED: FERROUS SULFAT325 MG GT (17:49)
[2017-03-18] MEDS ORDERED: NEXIUM40 MG GT (17:53)
[2017-03-18] MEDS ORDERED: BUPROPION XL300 MG GT (17:53)
[2017-03-18] MEDS ORDERED: MILK OF MA400 MG/51 GT (17:53)
[2017-03-18] MEDS ORDERED: TYLENOL EXTRA500 MG GT (17:54)
[2017-03-18] MEDS ORDERED: ACETAMINOPHEN120 MG RECTAL (17:54)
--- NOTE | 2017-03-18 17:55 | Emergency Room Report ---
History of Present Illness General Chief Complaint: General Complaint Source: Patient, Medical Record Present Illness HPI Patient presents with redness swelling and pain in the left side of his face. In the past he's been seen for radical neck surgery and head/neck cancer. Also prior trach. This is new area of redness and swelling. His doctor told him to come to the hospital because of rebound and abscess. The patient is not eating. He does have a gastrostomy tube in his head that way. He denies any fevers or chills. He states the pain is fairly significant at 7-8/10, burning and radiating somewhat down into his neck. Also feels swelling in his face. There is no numbness and no weakness. No change in voice. Not eating anything , but being fed by PEG tube. Admitted end October + early Nov 2016: FINAL DIAGNOSES: 1. Cellulitis and swelling of the left side of the face and neck. 2. Thyroid mass, unclear etiology. Pathology showed benign nodule. 3. Diabetes mellitus. 4. Hypertension. 6. Dysphagia on G-tube. 7. 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 8. Anemia secondary to chronic disease. 9. macrocytosis potentially secondary to liver disease. 10. Status post [place] permanent pacemaker implantation with normal function. 11. Paroxysmal atrial fibrillation. 12. Hypothyroidism. 13. Acute renal failure secondary to vancomycin. Allergies: Coded Allergies: AUBREY INHIBITORS (Verified Allergy, Unknown, ANGIOEDEMA, 09/17/12) Patient History Past Medical History: see triage record, old chart reviewed Past Surgical History: pacemaker, other - Radical neck surgery with radiation, PEG tube Social History: Reports: smoking Social History Narrative snf Reviewed Nursing Documentation: PMH: Agreed, PSxH: Agreed Nursing Documentation-PM Past Medical History: No History, Except For Hx Hypertension: Yes Hx Pacemaker: Yes Hx Asthma: Yes Hx COPD: Yes Hx Diabetes: Yes Hx Cancer: No Hx Gastrointestinal Problems: Yes - G tube Hx Dialysis: No Hx Cerebrovascular Accident: Yes Hx Seizures: Yes Hx Aphasia: Yes Hx Dysphasia: Yes Hx Weakness: Yes Review of Systems All Other Systems: negative except mentioned in HPI Physical Exam Vital Signs Date Time Temp Pulse Resp B/P Pulse Ox O2 Delivery O2 Flow Rate FiO2 03/18/17 17:34 97.9 66 12 130/70 98 Room Air Sp02 EP Interpretation: reviewed, normal General Appearance: well appearing, no apparent distress, GCS 15 Head: atraumatic, other - deformity of neck and Eyes: bilateral eye PERRL, bilateral eye normal inspection ENT: moist mucus membranes Neck: supple, other - post op and radiation Respiratory: lungs clear, normal breath sounds Cardiovascular #1: regular rate, rhythm Cardiovascular #2: 2+ radial (R) Gastrointestinal: normal inspection, normal bowel sounds, non tender, no mass, non-distended, other - g tube Musculoskeletal: back normal, gait/station normal, normal range of motion Neurologic: alert, oriented x3, grossly normal Psychiatric: mood/affect normal Skin: warm/dry, other - erythema L face with induration, some seborreic lesions nose also post surgical and radiation changes Medical Decision Making Diagnostic Impression: Primary Impression: Facial cellulitis Additional Impression: Hyponatremia ER Course The patient presents with facial swelling and erythema. Differential includes abscess, cellulitis, erysipelas amongst others. Emergent evaluation is undertaken with labs, CT of the face, chest x-ray and EKG. Blood cultures and likely will also be obtained. The patient will be started on broad-spectrum antibiotics covering skin microorganisms, specifically vancomycin and cefepime. The patient will be treated for pain. Labs with low sodium. EKG and CXR no acute pathology. Begun on vanco and cefipime and improved with analgesics. CT without evidence of abscess however surg changes and edema/inflammation. Admit med Dr. Pereira. Laboratory Tests Test 03/18/17 17:50 03/18/17 19:35 White Blood Count 5.3 K/UL (4.8-10.8) Red Blood Count 3.10 M/UL (4.70-6.10) L Hemoglobin 10.6 G/DL (14.2-18.0) L Hematocrit 32.2 % (42.0-52.0) L Mean Corpuscular Volume 104 FL (80-99) H Mean Corpuscular Hemoglobin 34.2 PG (27.0-31.0) H Mean Corpuscular Hemoglobin Concent 32.9 G/DL (32.0-36.0) Red Cell Distribution Width 12.7 % (11.6-14.8) Platelet Count 147 K/UL (150-450) L Mean Platelet Volume 8.9 FL (6.5-10.1) Neutrophils (%) (Auto) 79.6 % (45.0-75.0) H Lymphocytes (%) (Auto) 9.6 % (20.0-45.0) L Monocytes (%) (Auto) 9.8 % (1.0-10.0) Eosinophils (%) (Auto) 0.2 % (0.0-3.0) Basophils (%) (Auto) 0.8 % (0.0-2.0) Prothrombin Time 10.2 SEC (9.30-11.50) Prothrombin Time INR 1.0 (0.9-1.1) PTT 31 SEC (23-33) Sodium Level 128 mEQ/L (135-145) L Potassium Level 4.3 mEQ/L (3.4-4.9) Chloride Level 92 mEQ/L (98-107) L Carbon Dioxide Level 28 mEQ/L (20-30) Anion Gap 8 (5-15) Blood Urea Nitrogen 21 mg/dL (7-23) Creatinine 0.9 mg/dL (0.7-1.2) Estimate Glomerular Filtration Rate mL/min (>60) Glucose Level 93 mg/dL (74-106) Lactic Acid Level 0.90 mmol/L (0.66-2.22) Calcium Level 9.5 mg/dL (8.6-10.2) Magnesium Level 2.1 mg/dL (1.7-2.5) Total Bilirubin 0.4 mg/dL (0.0-1.2) Aspartate Amino Transferase (AST) 15 U/L (5-40) Alanine Aminotransferase (ALT) 6 U/L (3-41) Alkaline Phosphatase 72 U/L (40-129) Total Creatine Kinase 32 U/L (38-174) L Creatine Kinase MB < 1.5 ng/mL (< 6.7) Creatine Kinase MB Relative Index 4.6 Troponin I < 0.30 ng/mL (<=0.30) Pro-B-Type Natriuretic Peptide 2098 pg/mL (0-450) H Total Protein 6.9 g/dL (6.6-8.7) Albumin 3.5 g/dL (3.5-5.2) Globulin 3.4 g/dL Albumin/Globulin Ratio 1.0 (1.0-2.7) Urine Color Pale yellow Urine Appearance Clear Urine pH 7 (4.5-8.0) Urine Specific [place] 1.005 (1.005-1.035) Urine Protein Negative (NEGATIVE) Urine Glucose (UA) Negative (NEGATIVE) Urine Ketones Negative (NEGATIVE) Urine Occult Blood Negative (NEGATIVE) Urine Nitrite Negative (NEGATIVE) Urine Bilirubin Negative (NEGATIVE) Urine Urobilinogen Normal MG/DL (0.0-1.0) Urine Leukocyte Esterase Negative (NEGATIVE) EKG Diagnostic Results Rate: normal Rhythm: NSR ST Segments: no acute changes Rhythm Strip Diag. Results EP Interpretation: yes Rhythm: NSR, other - rate 72, pvcs Chest X-Ray Diagnostic Results EP Interpretation: Yes Findings: no consolidation, no effusion, no pneumothorax, no acute cardiopulmonary disease, other - pacer - inc bowel gas Number of Views: 1 CT/MRI/US Diagnostic Results CT/MRI/US Diagnostic Results : Imaging Test Ordered: maxiofacial Impression no abscess, + edema Last Vital Signs Date Time Temp Pulse Resp B/P Pulse Ox O2 Delivery O2 Flow Rate FiO2 03/18/17 23:16 98.1 61 16 97/60 96 Room Air Status: improved Disposition: ADMITTED INPATIENT Condition: Serious Ja Dowell M.D. Mar 18, 2017 17:55
[2017-03-18 18:18] LABS: BASOPHILS % (AUTO) 0.8 % (0.0-2.0); EOSINOPHILS % (AUTO) 0.2 % (0.0-3.0); LYMPHOCYTES % (AUTO) 9.6 % (20.0-45.0); MEAN CORPUSCULAR HEMOGLOBIN 34.2 PG (27.0-31.0); MEAN CORPUSCULAR HGB CONC 32.9 G/DL (32.0-36.0); MEAN CORPUSCULAR VOLUME 104 FL (80-99); MEAN PLATELET VOLUME 8.9 FL (6.5-10.1); MONOCYTES % (AUTO) 9.8 % (1.0-10.0); NEUTROPHILS % (AUTO) 79.6 % (45.0-75.0); PLATELET COUNT 147 K/UL (150-450); PROTHROMBIN TIME 10.2 SEC (9.30-11.50); RED CELL DISTRIBUTION WIDTH 12.7 % (11.6-14.8); WHITE BLOOD COUNT 5.3 K/UL (4.8-10.8)
[2017-03-18 18:26] LABS: ALANINE AMINOTRANSFERASE 6 U/L (3-41); ANION GAP 8 (5-15); ASPARTATE AMINO TRANSFERASE 15 U/L (5-40); CALCIUM 9.5 mg/dL (8.6-10.2); CARBON DIOXIDE 28 mEQ/L (20-30); CHLORIDE 92 mEQ/L (98-107); CREATININE 0.9 mg/dL (0.7-1.2); HEMOLYSIS 1; MAGNESIUM 2.1 mg/dL (1.7-2.5); POTASSIUM 4.3 mEQ/L (3.4-4.9); SODIUM 128 mEQ/L (135-145); TOTAL PROTEIN 6.9 g/dL (6.6-8.7); TROPONIN I < 0.30 ng/mL (<=0.30)
[2017-03-18] MEDS ORDERED: Vancomycin 1gm inj IVPB ONE (18:35)
[2017-03-18 18:37] LABS: CKMB < 1.5 ng/mL (< 6.7)
[2017-03-18] MEDS ORDERED: Cefepime 1gm vial ONE (18:41)
[2017-03-18] MEDS: Cefepime HCl 1 GM in NS 55 ML IV SCH (18:50)
[2017-03-18 19:20] VITALS: BP 127/65
[2017-03-18 19:54] LABS: APPEARANCE,URINE CLEAR; KETONES,URINE NEGATIVE (NEGATIVE); LEUKOCYTE ESTERASE ,URINE NEGATIVE (NEGATIVE); NITRITE,URINE NEGATIVE (NEGATIVE); PH,URINE 7 (4.5-8.0); PROTEIN,URINE NEGATIVE (NEGATIVE); UROBILINOGEN,URINE NORMAL MG/DL (0.0-1.0)
[2017-03-18 21:27] VITALS: BP 107/67
[2017-03-18 21:47] VITALS: BP 144/70
[2017-03-18] MEDS ORDERED: Milk of Magnesia 30ml Ud GT SCH (22:30)
[2017-03-18 23:16] VITALS: BP 97/60
[2017-03-19 04:00] VITALS: BP 101/61
[2017-03-19] MEDS ORDERED: Cefepime 1gm vial ONE (05:07)
[2017-03-19] MEDS: Cefepime HCl 1 GM in NS 55 ML IV SCH (05:32)
[2017-03-19 06:32] LABS: BASOPHILS % (AUTO) 0.7 % (0.0-2.0); EOSINOPHILS % (AUTO) 2.3 % (0.0-3.0); LYMPHOCYTES % (AUTO) 22.5 % (20.0-45.0); MEAN CORPUSCULAR HEMOGLOBIN 33.7 PG (27.0-31.0); MEAN CORPUSCULAR HGB CONC 32.4 G/DL (32.0-36.0); MEAN CORPUSCULAR VOLUME 104 FL (80-99); MEAN PLATELET VOLUME 9.6 FL (6.5-10.1); MONOCYTES % (AUTO) 11.9 % (1.0-10.0); NEUTROPHILS % (AUTO) 62.7 % (45.0-75.0); PLATELET COUNT 162 K/UL (150-450); RED BLOOD COUNT 3.29 M/UL (4.70-6.10); RED CELL DISTRIBUTION WIDTH 12.9 % (11.6-14.8); WHITE BLOOD COUNT 4.9 K/UL (4.8-10.8)
[2017-03-19 06:47] LABS: ALANINE AMINOTRANSFERASE 6 U/L (3-41); ANION GAP 12 (5-15); ASPARTATE AMINO TRANSFERASE 14 U/L (5-40); CALCIUM 9.5 mg/dL (8.6-10.2); CARBON DIOXIDE 28 mEQ/L (20-30); CHLORIDE 97 mEQ/L (98-107); CREATININE 0.8 mg/dL (0.7-1.2); HEMOLYSIS 0; POTASSIUM 4.6 mEQ/L (3.4-4.9); SODIUM 137 mEQ/L (135-145); TOTAL PROTEIN 6.7 g/dL (6.6-8.7)
[2017-03-19 08:01] VITALS: BP 98/57
[2017-03-19] MEDS: Metoprolol 25mg tab GT SCH ×2 (08:26→16:48)
[2017-03-19] MEDS: Amiodarone 200mg tab GT SCH (08:26)
[2017-03-19] MEDS: Valproic Acid 250mg/5ml Liquid GT SCH (08:37)
[2017-03-19] MEDS: Eliquis 2.5mg tablet GT SCH ×2 (08:38→17:15)
--- NOTE | 2017-03-19 08:43 | Diagnostic Imaging Report ---
Indication: Facial pain Technique: IV administration nonionic contrast Spiral acquisitions obtained through the phase Multiplanar reconstructions were generated. Total dose length product 647 mGycm. CTDIvol(s) 20 mGy. Radiation dose was minimized using automated exposure control Comparison: 11/25/2016 Findings: There is extensive soft tissue swelling in the left focal and malar region, predominantly involving the subcutaneous fat. No circumscribed fluid collection or other abnormality to suggest abscess demonstrated. The soft tissue swelling is less extensive than what was reported on the prior November 2016 exam There is irregularity of the right maxillary sinus wall and right orbital wall. This may be developmental or posttraumatic. Patient is edentulous. There is left maxillary sinus. There is leftward nasal septal deviation. The orbits are unremarkable. The intracranial structures demonstrate cerebral volume loss. No mass or adenopathy demonstrated. No evidence of cervicofacial mass or adenopathy. Impression: Evidence of persistent or recurrent left facial cellulitis. No evidence of abscess Persistent left maxillary sinus disease Other stable chronic changes as described This agrees with the preliminary interpretation provided overnight by [facility] teleradiology service. The CT scanner at is accredited by the [employer] and the scans are performed using protocols designed to limit radiation exposure to as low as reasonably achievable to attain images of sufficient resolution adequate for diagnostic evaluation.
[2017-03-19] MEDS ORDERED: BuPROPion XL 300mg tab ORAL SCH (09:00)
--- NOTE | 2017-03-19 09:24 | Infectious Diseases Prog Note ---
Assessment/Plan Problems: (1) Facial cellulitis Assessment & Plan: recurrent, with skin blisters rule out shingles, VS strep related cellulitis , will start vancomycin with cefepime , and acyclovir empirically pending blood culture, and shingles serology .recommend ENT consult. place in contact isolation (2) Maxillary sinusitis Assessment & Plan: will start wide spectrum antibiotics coverage, recoommend ENT EVAL (3) Diabetes Assessment & Plan: recommend tight glycemic control to keep blood glucose between 80-120 Subjective Allergies: Coded Allergies: AUBREY INHIBITORS (Verified Allergy, Unknown, ANGIOEDEMA, 09/17/12) Objective Vital Signs Last 24 Hour Vital Signs Date Time Temp Pulse Resp B/P Pulse Ox O2 Delivery O2 Flow Rate FiO2 03/19/17 08:26 59 98/57 03/19/17 08:01 98.0 59 20 98/57 97 Room Air 03/19/17 04:00 97.0 62 20 101/61 98 Room Air 03/18/17 23:16 98.1 61 16 97/60 96 Room Air 03/18/17 21:47 98.2 57 19 144/70 98 Room Air 03/18/17 21:28 97.4 87 18 107/67 98 Room Air 66 03/18/17 21:27 97.4 66 18 107/67 98 Room Air 03/18/17 19:20 87 18 127/65 99 Room Air 03/18/17 19:15 97.4 03/18/17 17:34 97.9 66 12 130/70 98 Room Air Height (Feet): 5 Height (Inches): 3.00 Weight (Pounds): 145 Laboratory Tests Test 03/18/17 17:50 03/18/17 19:35 03/19/17 05:30 White Blood Count 5.3 K/UL (4.8-10.8) 4.9 K/UL (4.8-10.8) Red Blood Count 3.10 M/UL (4.70-6.10) L 3.29 M/UL (4.70-6.10) L Hemoglobin 10.6 G/DL (14.2-18.0) L 11.1 G/DL (14.2-18.0) L Hematocrit 32.2 % (42.0-52.0) L 34.3 % (42.0-52.0) L Mean Corpuscular Volume 104 FL (80-99) H 104 FL (80-99) H Mean Corpuscular Hemoglobin 34.2 PG (27.0-31.0) H 33.7 PG (27.0-31.0) H Mean Corpuscular Hemoglobin Concent 32.9 G/DL (32.0-36.0) 32.4 G/DL (32.0-36.0) Red Cell Distribution Width 12.7 % (11.6-14.8) 12.9 % (11.6-14.8) Platelet Count 147 K/UL (150-450) L 162 K/UL (150-450) Mean Platelet Volume 8.9 FL (6.5-10.1) 9.6 FL (6.5-10.1) Neutrophils (%) (Auto) 79.6 % (45.0-75.0) H 62.7 % (45.0-75.0) Lymphocytes (%) (Auto) 9.6 % (20.0-45.0) L 22.5 % (20.0-45.0) Monocytes (%) (Auto) 9.8 % (1.0-10.0) 11.9 % (1.0-10.0) H Eosinophils (%) (Auto) 0.2 % (0.0-3.0) 2.3 % (0.0-3.0) Basophils (%) (Auto) 0.8 % (0.0-2.0) 0.7 % (0.0-2.0) Prothrombin Time 10.2 SEC (9.30-11.50) Prothromb Time International Ratio 1.0 (0.9-1.1) Activated Partial Thromboplast Time 31 SEC (23-33) Sodium Level 128 mEQ/L (135-145) L 137 mEQ/L (135-145) Potassium Level 4.3 mEQ/L (3.4-4.9) 4.6 mEQ/L (3.4-4.9) Chloride Level 92 mEQ/L (98-107) L 97 mEQ/L (98-107) L Carbon Dioxide Level 28 mEQ/L (20-30) 28 mEQ/L (20-30) Anion Gap 8 (5-15) 12 (5-15) Blood Urea Nitrogen 21 mg/dL (7-23) 18 mg/dL (7-23) Creatinine 0.9 mg/dL (0.7-1.2) 0.8 mg/dL (0.7-1.2) Estimat Glomerular Filtration Rate mL/min (>60) mL/min (>60) Glucose Level 93 mg/dL (74-106) 65 mg/dL (74-106) L Lactic Acid Level 0.90 mmol/L (0.66-2.22) Calcium Level 9.5 mg/dL (8.6-10.2) 9.5 mg/dL (8.6-10.2) Magnesium Level 2.1 mg/dL (1.7-2.5) Total Bilirubin 0.4 mg/dL (0.0-1.2) 0.4 mg/dL (0.0-1.2) Aspartate Amino Transf (AST/SGOT) 15 U/L (5-40) 14 U/L (5-40) Alanine Aminotransferase (ALT/SGPT) 6 U/L (3-41) 6 U/L (3-41) Alkaline Phosphatase 72 U/L (40-129) 69 U/L (40-129) Total Creatine Kinase 32 U/L (38-174) L Creatine Kinase MB < 1.5 ng/mL (< 6.7) Creatine Kinase MB Relative Index 4.6 Troponin I < 0.30 ng/mL (<=0.30) Pro-B-Type Natriuretic Peptide 2098 pg/mL (0-450) H Total Protein 6.9 g/dL (6.6-8.7) 6.7 g/dL (6.6-8.7) Albumin 3.5 g/dL (3.5-5.2) 3.4 g/dL (3.5-5.2) L Globulin 3.4 g/dL 3.3 g/dL Albumin/Globulin Ratio 1.0 (1.0-2.7) 1.0 (1.0-2.7) Urine Color Pale yellow Urine Appearance Clear Urine pH 7 (4.5-8.0) Urine Specific [place] 1.005 (1.005-1.035) Urine Protein Negative (NEGATIVE) Urine Glucose (UA) Negative (NEGATIVE) Urine Ketones Negative (NEGATIVE) Urine Occult Blood Negative (NEGATIVE) Urine Nitrite Negative (NEGATIVE) Urine Bilirubin Negative (NEGATIVE) Urine Urobilinogen Normal MG/DL (0.0-1.0) Urine Leukocyte Esterase Negative (NEGATIVE) Current Medications Medications (Trade) Dose Ordered Sig/Yousuf Route PRN Reason Start Time Stop Time Status Last Admin Dose Admin Acetaminophen (Tylenol) 325 mg EVERY 4 HOURS PRN ORAL Fever/Headache/Mild Pain 03/18/17 22:30 04/17/17 22:29 Amiodarone HCl (Cordarone) 100 mg DAILY GT 03/19/17 09:00 04/18/17 08:59 Amlodipine Besylate (Norvasc) 5 mg DAILY GT 03/19/17 09:00 04/18/17 08:59 Apixaban (Eliquis) 2.5 mg BID GT 03/19/17 09:00 04/18/17 08:59 03/19/17 08:38 Cefepime HCl 2 gm/ Dextrose 110 ml @ 220 mls/hr Q24H IVPB 03/20/17 06:00 03/27/17 05:59 Clonidine HCl (Catapres) 0.1 mg DAILY GT 03/19/17 09:00 04/18/17 08:59 Clonidine HCl (Catapres) 0.1 mg EVERY 6 HOURS GT 03/19/17 00:00 03/19/17 06:00 UNV Clonidine HCl (Catapres) 0.1 mg PRN GT 03/20/17 00:00 04/19/17 00:00 UNV Ferrous Sulfate (Feosol) 1 mg DAILY ORAL 03/19/17 09:00 04/18/17 08:59 UNV Finasteride (Proscar) 5 mg DAILY GT 03/19/17 09:00 04/18/17 08:59 03/19/17 08:37 Furosemide (Lasix) 20 mg DAILY GT 03/19/17 09:00 04/18/17 08:59 Magnesium Hydroxide (Mom) 30 ml PRN GT 03/18/17 22:30 04/17/17 22:29 Metoprolol Tartrate (Lopressor) 12.5 mg TWICE A DAY GT 03/19/17 09:00 04/18/17 08:59 Pantoprazole (Protonix) 40 mg DAILY ORAL 03/19/17 09:00 04/18/17 08:59 6/8/17 08:38 Potassium Chloride (K-Dur) 10 meq DAILY ORAL 03/19/17 09:00 04/18/17 08:59 03/19/17 08:38 Sodium Chloride (0.45% NS 1000ml) 1,000 ml @ 75 mls/hr [id number] IV 03/18/17 22:00 04/17/17 21:59 03/19/17 00:12 Valproic Acid (Depakene) 250 mg DAILY GT 03/19/17 09:00 04/18/17 08:59 03/19/17 08:37 Vancomycin HCl 1 ea 1 ea DAILY PRN MISC Per rx protocol 03/19/17 08:00 04/18/17 07:59 Vancomycin HCl/ Dextrose (Vancomycin/D5W) 275 ml @ 183.708 mls/hr Q24H IVPB 03/19/17 20:00 03/24/17 19:59 Aida Frederick M.D. Mar 19, 2017 09:24
--- NOTE | 2017-03-19 10:23 | Diagnostic Imaging Report ---
Indication: Chest pain Technique: One view of the chest Comparison: 02/06/2017 Findings: Inspiration is suboptimal. There is atelectasis at the left lung base. Lungs and pleural spaces are otherwise clear. There is a left chest pacemaker. Heart size is upper limits of normal. Unusual focal opacities projected over the left arm and chest wall may be extrinsic to the patient.. There are degenerative changes of the right shoulder Impression: Hypoventilatory exam with left basilar atelectasis. Other findings as noted This agrees with the preliminary interpretation provided by the emergency room physician
[2017-03-19 11:35] VITALS: BP 105/63
[2017-03-19] MEDS ORDERED: Tubing IV Secondary IV ONE (12:38)
[2017-03-19] MEDS ORDERED: 1/2 NS 1000ml IV ONE (12:38)
[2017-03-19] MEDS ORDERED: Sterile Water Irrig 1000ml IRRIG ONE (12:38)
[2017-03-19] MEDS: ACYCLOVIR IV SCH (15:30)
[2017-03-19] MEDS: D5W IV SCH (15:30)
[2017-03-19 15:38] VITALS: BP 95/61
[2017-03-19] MEDS: Ferrous Sulfate 300 MG/5 ML UDC GT SCH (15:50)
[2017-03-19 20:00] VITALS: BP 106/61
[2017-03-19] MEDS: Vancomycin 1gm/D5W 275ml IVPB SCH ×2 (21:46)
--- NOTE | 2017-03-19 22:15 | Consultation ---
DATE OF CONSULTATION: 03/19/2017 INFECTIOUS DISEASE CONSULTATION CONSULTING PHYSICIAN: Aida Frederick M.D. REFERRING PHYSICIAN: Laina Pereira M.D. REASON FOR CONSULTATION: Facial cellulitis with blisters, recommendation for antibiotic therapy HISTORY OF PRESENT ILLNESS: The patient is a 76-year-old male with history of facial cellulitis, status post radical neck surgery, head and neck cancer resection with radiation treatment, presented to the hospital for recurrent facial swelling and redness with skin blisters. The patient was having swelling and redness mainly on the left side of his face. He does have gastrostomy tube in place with no evidence of dislodgement or site infection. The patient denied fever or chills himself. No headache or blurry vision, but he can feel burning sensation on his left side of the face with swelling. No numbness or weakness. No facial droop. No change in his voice. The patient had a CT scan of the head and neck with no evidence of abscess, but edema and infiltration. So, he was started on vancomycin and cefepime, and I was consulted by the primary provider for antibiotics recommendation and further management. PAST MEDICAL HISTORY: Significant for thyroid mass; diabetes; hypertension; dysphagia, status post G-tube placement; old CVA; anemia; status post [place] permanent pacemaker implantation; paroxysmally atrial fibrillation; hypothyroidism; and acute renal failure due to vancomycin. ALLERGIES: He is allergic to AUBREY inhibitor. PAST SURGICAL HISTORY: He had radical neck surgery with radiation and PEG tube placement. SOCIAL HISTORY: He lives in a [facility]. No recent drugs, tobacco, or alcohol. FAMILY HISTORY: Noncontributory MEDICATIONS: The patient received vancomycin and cefepime in the emergency room. For list of medications, please refer to MAR. LABORATORY DATA: Labs showed BUN of 18 and creatinine of 0.8. AST of 14 and ALT of 6. White count of 4.9, hemoglobin of 11.1, and platelet count of 162,000. Urinalysis was negative for infection. IMAGING: CT maxillofacial showed evidence of persistent or recurrent left facial cellulitis. No evidence of sepsis. Persistent left maxillary sinus disease. Other stable chronic changes. Chest x-ray showed hypoventilation with left basilar atelectasis. PHYSICAL EXAMINATION: VITAL SIGNS: Temperature 98.2, pulse 68, respirations 20, blood pressure 105/63, and O2 saturation 100% on room air. GENERAL: An elderly male, laying in bed with left facial redness and swelling and blisters. Awake, alert, coherent, not in distress. Difficult to understand. HEENT: He has left facial redness and swelling extending to the right side with diffuse blisters, warmth, and erythema, mainly localized on the left side of his face. That does not involve the right side much or his neck compared to the left side of his face. Moist oral mucosa. No exudate or thrush. Pupils are reactive to light equally. Intact sclerae with no ulceration or discharge from his eyes. NECK: Supple. Mild erythema on the left side. No lymphadenopathy. CARDIOVASCULAR: Regular rate and rhythm. No murmur or gallop. LUNGS: Clear bilaterally. No wheezing or rhonchi. ABDOMEN: Soft, nontender, and nondistended. Positive bowel sounds. G-tube in place. No organomegaly. EXTREMITIES: No edema or cyanosis. ASSESSMENT AND RECOMMENDATION: 1. Facial cellulitis, recurrent with skin blisters. Rule out shingles versus streptococcus related cellulitis and blister. We will start the patient on vancomycin and cefepime empiric treatment. We will add acyclovir to cover for possible shingles and send serology to confirm. We will place the patient in contact isolation for now. Recommend ENT consultation. 2. Maxillary sinusitis. The patient will be on wide-spectrum antibiotic therapy, which will cover his sinusitis. Recommend ENT evaluation for further workup. 3. Diabetes. Recommend tight glycemic control to keep blood glucose between 80 and 120. Aida Frederick M.D. DR: HONEY JOB#: [id number] CC:
--- NOTE | 2017-03-19 23:21 | Consultation ---
Consult Note Consult Note HEMATOLOGY CONSULTATION DOS: 03/19/17 CONSULTING PHYSICIAN: Jax Alcaraz M.D. REQUESTING PHYSICIAN: Laina Pereira M.D. REASON FOR CONSULTATION: Anemia, leukopenia HISTORY OF PRESENT ILLNESS: 76-year-old male with previous history of neck and facial malignancy status post surgical resection and radiation therapy to the left side of the neck and face, who was recently admitted to [facility] for left facial cellulitis and recently gtube malfunction. He was sent from the halfway facility for worsening infection of wound on face, which was noticed by the nursing staff. The patient was found to be hypotensive upon arrival with decreased white count. A anemia w/u already ordered. Has been completed on prior eval PAST MEDICAL HISTORY: Significant for diabetes, hypotension, atrial fibrillation, COPD, CVA, TIA, and psych disorder. PAST SURGICAL HISTORY: He had a pacemaker placement and G-tube placement. ALLERGIES: He is allergic to AUBREY inhibitors. MEDICATIONS: Please refer to MAR. SOCIAL HISTORY: He is a [facility] resident. No recent drugs, tobacco, or alcohol. FAMILY HISTORY: Not contributory. PHYSICAL EXAMINATION: VITAL SIGNS: reviewed GENERAL: This is an elderly male, lying in bed, awake, alert, and pleasant, not in distress. HEENT: He has right sided facial cellulitis NECK: Supple. No lymphadenopathy. CARDIOVASCULAR: Regular rate and rhythm. No murmur. LUNGS: Clear bilaterally. No wheezing or rhonchi. ABDOMEN: Soft, nontender, and nondistended. Positive bowel sounds. No hepatosplenomegaly. No ascites. G-tube site looks mildly red, but no significant erythema or fluctuation. No drainage. EXTREMITIES: No edema or cyanosis. LABORATORY DATA: Laboratory Tests Test 03/19/17 05:30 White Blood Count 4.9 K/UL (4.8-10.8) Red Blood Count 3.29 M/UL (4.70-6.10) L Hemoglobin 11.1 G/DL (14.2-18.0) L Hematocrit 34.3 % (42.0-52.0) L Mean Corpuscular Volume 104 FL (80-99) H Mean Corpuscular Hemoglobin 33.7 PG (27.0-31.0) H Mean Corpuscular Hemoglobin Concent 32.4 G/DL (32.0-36.0) Red Cell Distribution Width 12.9 % (11.6-14.8) Platelet Count 162 K/UL (150-450) Mean Platelet Volume 9.6 FL (6.5-10.1) Neutrophils (%) (Auto) 62.7 % (45.0-75.0) Lymphocytes (%) (Auto) 22.5 % (20.0-45.0) Monocytes (%) (Auto) 11.9 % (1.0-10.0) H Eosinophils (%) (Auto) 2.3 % (0.0-3.0) Basophils (%) (Auto) 0.7 % (0.0-2.0) Sodium Level 137 mEQ/L (135-145) Potassium Level 4.6 mEQ/L (3.4-4.9) Chloride Level 97 mEQ/L (98-107) L Carbon Dioxide Level 28 mEQ/L (20-30) Anion Gap 12 (5-15) Blood Urea Nitrogen 18 mg/dL (7-23) Creatinine 0.8 mg/dL (0.7-1.2) Estimat Glomerular Filtration Rate mL/min (>60) Glucose Level 65 mg/dL (74-106) L Calcium Level 9.5 mg/dL (8.6-10.2) Total Bilirubin 0.4 mg/dL (0.0-1.2) Aspartate Amino Transf (AST/SGOT) 14 U/L (5-40) Alanine Aminotransferase (ALT/SGPT) 6 U/L (3-41) Alkaline Phosphatase 69 U/L (40-129) Total Protein 6.7 g/dL (6.6-8.7) Albumin 3.4 g/dL (3.5-5.2) L Globulin 3.3 g/dL Albumin/Globulin Ratio 1.0 (1.0-2.7) Varicella-Zoster IgG Antibody Pending Varicella-Zoster IgM Antibody Pending ASSESSMENT: 1. Leukopenia is very likely related to infection. wbc total is >4, does not need neupogen at the moment 2. Anemia 2/2 chronic disease- anemia w/u had been ordered and to be reviewed 3. Cellulitis of face on abx as per id team 4. Malfunctioning of the gastrostomy tube s/p replacement before 5. Maxillary sinusitis RECS: - Monitor counts - Peripheral smear ordered - Anemia w/u to be reviewed - Abx as per ID w/u - EnT eval - GI ppx with zantac - Appreciate consultation! Jax Alcaraz. Mar 19, 2017 23:21
[2017-03-20] MEDS: ACYCLOVIR IV SCH ×4 (00:41→22:53)
[2017-03-20] MEDS: D5W IV SCH ×4 (00:41→22:53)
--- NOTE | 2017-03-20 01:15 | History and Physical Report ---
DATE OF ADMISSION: 03/18/2017 HISTORY OF PRESENT ILLNESS: The patient is admitted for his facial cellulitis, rule out facial abscess. The patient is status post head and neck surgery in the past for throat, ENT, and head cancer. CAT scan showed subcutaneous edema on the left side of the face, slightly unchanged or slightly improved compared to previous. No suggestion of swollen nodes or ulcers seen. The patient is admitted for those reasons. The patient is complaining of pain on palpation. Denies nausea, vomiting, or diarrhea. No fever or chills. Denies shortness of breath. The patient is a very poor historian. PAST MEDICAL HISTORY: Significant for psychosis, history of head and neck cancer, history of hypertension, GERD, BPH, as well as NIDDM, mood disorder, depression, and psychosis. PAST SURGICAL HISTORY: History of PEG and history of head and neck surgery. MEDICATIONS: Potassium, valproic acid, metformin, finasteride, ferrous sulfate, Nexium, clonidine, Eliquis, amlodipine, amiodarone, and Tylenol. ALLERGIES: AUBREY inhibitors. FAMILY HISTORY: Noncontributory. SOCIAL HISTORY: The patient has a history of smoking. No history of drug or alcohol abuse. He lives in a jail. REVIEW OF SYSTEMS: HEENT: Denies headache. Has facial pain. Respiratory: Denies shortness of breath. Cardiac: Denies chest pain. GI: Denies nausea, vomiting, or diarrhea. Extremities: Denies pain in the lower extremities. 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 PHYSICAL EXAMINATION: VITAL SIGNS: Temperature is 98.2 degrees, pulse is 57, and blood pressure 144/70. HEENT: PERRLA. NECK: The patient has facial edema, swelling, and tenderness on the left side of the face. CHEST: Clear to auscultation. CARDIOVASCULAR: Regular rate and rhythm. GI: Soft, nontender, and nondistended. No organomegaly. EXTREMITIES: There is 2+ edema equally on both sides. Reflexes are , which is his baseline. He is able to move his extremities. LABORATORY DATA: WBC of 5.3, hemoglobin 10.6, and platelets 147,000. Sodium 128, potassium 4.3, BUN of 7, and creatinine 0.9. Glucose of 93. BNP was elevated. ASSESSMENT: 1. Hyponatremia. 2. Elevated BNP. 3. Facial cellulitis. PLAN: I have asked Dr. Jaime, Dr. Frederick, Dr. Huber, and Dr. Carlin to see the patient for the above-mentioned diagnoses and treatment of facial cellulitis. The patient has facial swelling on the left side of the face. Laina Pereira M.D. DR: JERMAINE JOB#: [id number] CC:
--- NOTE | 2017-03-20 01:15 | Consultation ---
DATE OF CONSULTATION: HISTORY OF PRESENT ILLNESS: This is a 76-year-old male with a history of colitis, swelling of left side of his face and neck, thyroid mass, acute renal failure secondary to vancomycin, hypothyroidism, paroxysmal atrial fibrillation, status post [place] permanent pacemaker implantation, anemia, cerebrovascular accident, dysphagia, hypertension, and diabetes mellitus, has been admitted to the hospital due to complaints of redness, swelling, and pain of the left side of his face. During the evaluation, the patient also has a history of depression and has been treated with Wellbutrin. During the evaluation, the patient complaining of weakness, fatigue, and decreased appetite. He is not eating on G-tube. He has depressed mood, anhedonia, worthlessness, and hopelessness. His cognition is relatively intact. PAST PSYCHIATRY HISTORY: He has a history of depression. No suicide attempt in the past. MEDICATIONS: Wellbutrin and Depakote. PAST MEDICAL HISTORY: Includes dementia, respiratory insufficiency, bronchitis, CVA, respiratory failure, dysphagia, PEG placement, diabetes, hypertension, sepsis, thyroid mass, vomiting, hypothyroidism, ileus, hypernatremia, facial cellulitis, and maxillary sinusitis. ALLERGIES: Includes AUBREY. SUBSTANCE ABUSE HISTORY: No known history of illicit drug use or alcohol. MENTAL STATUS EXAMINATION: The patient is alert and oriented x3. Mood is depressed. Affect is constricted. Congruent mood. Thought process is concrete. Thought content, no suicidal or homicidal ideation. ASSESSMENT: AXIS I Major depressive disorder and dementia. AXIS II Deferred. AXIS III As above. AXIS IV Moderate. AXIS V Global assessment of functioning is 20. PLAN: 1. The patient will be continued on Wellbutrin 100 mg in the morning. However, Wellbutrin will decrease the appetite, recommend to change the medication. The patient will consider. 2. Continue Depakote. 3. We will continue to follow and readjust the medications. Kenyon Carlin M.D. DR: Kartik JOB#: [id number] CC:
[2017-03-20 04:00] VITALS: BP 120/73
[2017-03-20] MEDS: Cefepime HCl 2 GM in D5W 110 ML IVPB SCH (05:15)
[2017-03-20 08:00] VITALS: BP 82/58
[2017-03-20] MEDS: Metoprolol 25mg tab GT SCH ×2 (09:00→17:45)
[2017-03-20] MEDS: Amiodarone 200mg tab GT SCH (10:00)
[2017-03-20] MEDS: Eliquis 2.5mg tablet GT SCH ×2 (10:01→17:44)
[2017-03-20] MEDS ORDERED: 1/2 NS 1000ml IV ONE (10:02)
[2017-03-20] MEDS ORDERED: Tubing IV Secondary IV ONE (10:02)
[2017-03-20] MEDS: Ferrous Sulfate 300 MG/5 ML UDC GT SCH (10:06)
[2017-03-20] MEDS: Valproic Acid 250mg/5ml Liquid GT SCH (10:06)
[2017-03-20 12:00] VITALS: BP 134/45
--- NOTE | 2017-03-20 12:23 | Wound Care Consultation ---
Wound Assessment Wound Assessment : Wound Present on Admission: Yes New Wound: No Status Change of Wound: No Wound Location Body Site: perianal Wound Type: chemical burn Eduardo Test: Does not Eduardo Percent of Wound [place]/Red: 100 Wound Drainage Amount: None Wound Drainage Odor: None/Absent Tissue Surrounding Wound: Erythemic Wound General Appearance: Reddened Wound Comment #1 Perianal area chemical burn Recommendation -Local wound care per protocol -Keep clean and dry -Turn and reposition -Optimize nutrition -Assess and f/u accordingly for any changes FARIHA MCGINNIS RN Mar 20, 2017 12:23
[2017-03-20 16:00] VITALS: BP 93/56
--- NOTE | 2017-03-20 16:57 | Infectious Diseases Prog Note ---
Assessment/Plan Problems: (1) Facial cellulitis Assessment & Plan: recurrent, with skin blisters rule out shingles, VS strep related cellulitis , continue vancomycin with cefepime , and acyclovir empirically pending blood culture, and shingles serology . ENT was consult. keep in contact isolation (2) Maxillary sinusitis Assessment & Plan: on wide spectrum antibiotics coverage, had ENT eval (3) Diabetes Assessment & Plan: recommend tight glycemic control to keep blood glucose between 80-120 Subjective Constitutional: Reports: anorexia HEENT: Reports: congestion, other - facial redness and swelling with blisters Respiratory: Reports: no symptoms Breasts: Reports: no symptoms Cardiovascular: Reports: no symptoms Gastrointestinal/Abdominal: Reports: no symptoms Genitourinary: Reports: no symptoms Neurologic: Reports: no symptoms Psychiatric: Reports: no symptoms Skin: Reports: other - red, and tender in the left face Endocrine: Reports: no symptoms Allergies: Coded Allergies: AUBREY INHIBITORS (Verified Allergy, Unknown, ANGIOEDEMA, 09/17/12) Objective Vital Signs Last 24 Hour Vital Signs Date Time Temp Pulse Resp B/P Pulse Ox O2 Delivery O2 Flow Rate FiO2 03/20/17 16:00 97.3 76 20 93/56 97 Room Air 03/20/17 12:00 98.1 62 20 134/45 100 Room Air 03/20/17 09:00 100/62 03/20/17 09:00 66 100/62 03/20/17 09:00 66 100/62 03/20/17 08:00 97.2 68 20 82/58 99 Room Air 03/20/17 04:00 98.0 68 18 120/73 Room Air 68 03/19/17 20:00 97.5 60 106/61 99 Room Air 18 Height (Feet): 5 Height (Inches): 3.00 Weight (Pounds): 145 General Appearance: WD/WN, no acute distress HEENT: atraumatic, anicteric, mucous membranes moist, supple, no JVD, other - left facial swelling and redness with blisters Respiratory/Chest: chest wall non-tender, lungs clear, normal breath sounds, no respiratory distress, no accessory muscle use Cardiovascular: normal peripheral pulses, normal rate, regular rhythm, no gallop/murmur Abdomen: normal bowel sounds, soft, non tender, no organomegaly, non distended , no mass, no scars Extremities: no cyanosis, no clubbing Skin: no rash, no lesions Microbiology Date/Time Source Procedure Growth Status 03/18/17 17:50 Blood Blood Culture - Preliminary NO GROWTH AFTER 24 HOURS Resulted 03/18/17 17:35 Blood Blood Culture - Preliminary NO GROWTH AFTER 24 HOURS Resulted 03/18/17 18:30 Rectum VRE Culture - Final Enterococcus Faecalis - Vre Complete Laboratory Tests Test 03/20/17 06:05 Ferritin 126 ng/mL (10-230) Current Medications Medications (Trade) Dose Ordered Sig/Yousuf Route PRN Reason Start Time Stop Time Status Last Admin Dose Admin Acetaminophen (Tylenol) 325 mg EVERY 4 HOURS PRN ORAL Fever/Headache/Mild Pain 03/18/17 22:30 04/17/17 22:29 Acyclovir/Dextrose (Zovirax/D5W) 110 ml @ 110 mls/hr Q8HR IV 03/19/17 15:00 03/26/17 14:59 03/20/17 14:17 Amiodarone HCl (Cordarone) 100 mg DAILY GT 03/19/17 09:00 04/18/17 08:59 03/20/17 10:00 Amlodipine Besylate (Norvasc) 5 mg DAILY GT 03/19/17 09:00 04/18/17 08:59 Apixaban (Eliquis) 2.5 mg BID GT 03/19/17 09:00 04/18/17 08:59 03/20/17 10:01 Cefepime HCl 2 gm/ Dextrose 110 ml @ 220 mls/hr Q24H IVPB 03/20/17 06:00 03/27/17 05:59 03/20/17 05:15 Clonidine HCl (Catapres) 0.1 mg Q6H PRN GT Systolic greater than 160 03/19/17 13:30 04/18/17 13:29 Clonidine HCl 0.1 mg 0.1 mg DAILY GT 03/20/17 09:00 04/19/17 08:59 Clotrimazole (Lotrimin) 1 applic EVERY 12 HOURS TOPIC 03/20/17 14:00 04/19/17 13:59 03/20/17 14:17 Ferrous Sulfate (Feosol) 300 mg DAILY GT 03/19/17 14:00 04/18/17 13:59 03/20/17 10:06 Finasteride (Proscar) 5 mg DAILY GT 03/19/17 09:00 04/18/17 08:59 03/20/17 10:01 Furosemide (Lasix) 20 mg DAILY GT 03/19/17 09:00 04/18/17 08:59 03/20/17 10:02 Magnesium Hydroxide (Mom) 30 ml PRN GT 03/18/17 22:30 04/17/17 22:29 Metoprolol Tartrate (Lopressor) 12.5 mg TWICE A DAY GT 03/19/17 09:00 04/18/17 08:59 Pantoprazole (Protonix) 40 mg DAILY ORAL 03/19/17 09:00 04/18/17 08:59 03/20/17 10:02 Potassium Chloride (K-Dur) 10 meq DAILY ORAL 03/19/17 09:00 04/18/17 08:59 03/20/17 10:02 Sodium Chloride (0.45% NS 1000ml) 1,000 ml @ 75 mls/hr [id number] IV 03/18/17 22:00 04/17/17 21:59 03/20/17 10:12 Valproic Acid (Depakene) 250 mg DAILY GT 03/19/17 09:00 04/18/17 08:59 03/20/17 10:06 Vancomycin HCl 1 ea 1 ea DAILY PRN MISC Per rx protocol 03/19/17 08:00 04/18/17 07:59 Vancomycin HCl/ Dextrose (Vancomycin/D5W) 275 ml @ 183.708 mls/hr Q24H IVPB 03/19/17 20:00 03/24/17 19:59 03/19/17 21:46 Aida Frederick M.D. Mar 20, 2017 16:57
--- NOTE | 2017-03-20 19:15 | Consultation ---
DATE OF CONSULTATION: 03/19/2017 HEAD AND NECK SURGERY ENT CONSULT CONSULTING PHYSICIAN: Nirmal Jaime M.D. PRIMARY CARE PHYSICIAN: Laina Pereira M.D. SUBJECTIVE: The patient is well known to me. I saw him a few months ago for a left-sided facial swelling where it was decided not to drain. He came in with cellulitis two days ago. I was asked to see him yesterday and dictating this today although I spoke him with the physicians involved. He is responding to his medications, which are ceftaroline and vancomycin. The CT scan that was taken before restarting antibiotics actually shows that the inflammatory area is smaller than it was at his last visit. Taking into account the patient's overall physical status and immunology, I would not recommend going in and cleaning out the areas within the fatty tissue in the buccal mucosa or between that and the skin. Surgery would not alleviate the problem of infection. He probably just needs a longer course of antibiotics, which I have discussed with the physicians as well. He is okay to go back to care facility on orals and Infectious Disease was indicated, but he does not need to be treated from an ENT facial process prospective in the office. Nirmal Jaime M.D. DR: ESTRADA JOB#: [id number] CC:
[2017-03-20 20:00] VITALS: BP 123/64
[2017-03-20] MEDS: Vancomycin 1gm/D5W 275ml IVPB SCH ×2 (20:28)
--- NOTE | 2017-03-21 02:15 | Progress Note ---
DATE: 03/18/2017 SUBJECTIVE: The patient is calm, no behavior issues. Presents with depressed mood, decreased energy, and fatigue. MENTAL STATUS EXAMINATION: Alert and oriented x3. Mood is flat. Affect is constricted. Congruent mood. Thought process is concrete. Thought content, no suicidal, or homicidal ideation. ASSESSMENT: Major depressive disorder and dementia. PLAN: 1. The patient will be continued on Wellbutrin. 2. Continue Depakote. 3. Provide the patient with supportive therapy and reality orientation. Kenyon Carlin M.D. DR: GISSELL JOB#: [id number] CC:
[2017-03-21 04:00] VITALS: BP 146/79
[2017-03-21] MEDS: Cefepime HCl 2 GM in D5W 110 ML IVPB SCH (05:09)
[2017-03-21] MEDS: D5W IV SCH ×3 (05:40→21:01)
[2017-03-21] MEDS: ACYCLOVIR IV SCH ×3 (05:40→21:01)
[2017-03-21 08:21] VITALS: BP 124/78
[2017-03-21] MEDS: Metoprolol 25mg tab GT SCH ×2 (09:00→17:13)
[2017-03-21] MEDS: Ferrous Sulfate 300 MG/5 ML UDC GT SCH (09:01)
[2017-03-21] MEDS: Amiodarone 200mg tab GT SCH (09:01)
[2017-03-21] MEDS: Eliquis 2.5mg tablet GT SCH ×2 (09:01→17:17)
[2017-03-21] MEDS: Valproic Acid 250mg/5ml Liquid GT SCH (09:02)
--- NOTE | 2017-03-21 11:09 | General Progress Note ---
Assessment/Plan Problem List: (1) Cellulitis (2) Diabetes ICD Codes: E11.9 - Diabetes SNOMED: 61463702 (3) HTN (hypertension) ICD Codes: I10 - HTN (hypertension) SNOMED: 74255542 (4) Sepsis ICD Codes: A41.9 - Sepsis SNOMED: 26564444 (5) Hypothyroidism ICD Codes: E03.9 - Hypothyroidism, unspecified SNOMED: 86771230 Status: progressing Assessment/Plan afebrile no wheezing facial celluitis improving continue abx per id afebril vitals stable Subjective ROS Limited/Unobtainable: Yes Constitutional: Reports: no symptoms Allergies: Coded Allergies: AUBREY INHIBITORS (Verified Allergy, Unknown, ANGIOEDEMA, 09/17/12) Objective Last 24 Hour Vital Signs Date Time Temp Pulse Resp B/P Pulse Ox O2 Delivery O2 Flow Rate FiO2 03/21/17 09:02 124/78 03/21/17 09:02 63 124/78 03/21/17 08:21 97.3 63 18 124/78 90 Room Air 03/21/17 04:00 97.3 61 20 146/79 98 Room Air 03/20/17 20:00 97.9 60 18 123/64 Room Air 03/20/17 17:45 62 116/49 03/20/17 16:00 97.3 76 20 93/56 97 Room Air 03/20/17 12:00 98.1 62 20 134/45 100 Room Air Intake and Output 03/20/17 03/21/17 19:00 07:00 Intake Total 1460 ml 1932.416 ml Balance 1460 ml 1932.416 ml Free Water 150 ml 100 ml IV Total 710 ml 1332.416 ml Tube Feeding 600 ml 500 ml # Voids 5 Height (Feet): 5 Height (Inches): 3.00 Weight (Pounds): 145 Neck: supple Cardiovascular: normal rate Respiratory/Chest: lungs clear Abdomen: soft Laina Pereira MD Mar 21, 2017 11:09
--- NOTE | 2017-03-21 14:03 | Infectious Diseases Prog Note ---
Assessment/Plan Problems: (1) Facial cellulitis Assessment & Plan: recurrent, with skin blisters rule out shingles, VS streptococcus related cellulitis , continue vancomycin with cefepime , and acyclovir empirically pending blood culture, and shingles serology . ENT was consult. keep in contact isolation (2) Maxillary sinusitis Assessment & Plan: on wide spectrum antibiotics coverage, had ENT eval (3) Diabetes Assessment & Plan: recommend tight glycemic control to keep blood glucose between 80-120 (4) Nose colonized with MRSA Assessment & Plan: will give bactroban for 5 days (5) Colonization with VRE (vancomycin-resistant enterococcus) Assessment & Plan: keep in contact isolation Subjective Constitutional: Reports: no symptoms HEENT: Reports: congestion, other - facial swelling Respiratory: Reports: no symptoms Breasts: Reports: no symptoms Cardiovascular: Reports: no symptoms Gastrointestinal/Abdominal: Reports: no symptoms Genitourinary: Reports: no symptoms Neurologic: Reports: no symptoms Psychiatric: Reports: no symptoms Skin: Reports: other - facial swelling with redness and warmth, and blisters drying out Allergies: Coded Allergies: AUBREY INHIBITORS (Verified Allergy, Unknown, ANGIOEDEMA, 09/17/12) Objective Vital Signs Last 24 Hour Vital Signs Date Time Temp Pulse Resp B/P Pulse Ox O2 Delivery O2 Flow Rate FiO2 03/21/17 09:02 124/78 03/21/17 09:02 63 124/78 03/21/17 08:21 97.3 63 18 124/78 90 Room Air 03/21/17 04:00 97.3 61 20 146/79 98 Room Air 03/20/17 20:00 97.9 60 18 123/64 Room Air 03/20/17 17:45 62 116/49 03/20/17 16:00 97.3 76 20 93/56 97 Room Air Height (Feet): 5 Height (Inches): 3.00 Weight (Pounds): 145 General Appearance: WD/WN, no acute distress HEENT: normocephalic, atraumatic, anicteric, mucous membranes moist Respiratory/Chest: chest wall non-tender, lungs clear, normal breath sounds, no respiratory distress, no accessory muscle use Cardiovascular: normal peripheral pulses, normal rate, regular rhythm, no gallop/murmur, no JVD Abdomen: normal bowel sounds, soft, non tender, no organomegaly, non distended , no mass Extremities: no cyanosis, no clubbing Skin: no rash, no lesions Microbiology Date/Time Source Procedure Growth Status 03/18/17 17:50 Blood Blood Culture - Preliminary NO GROWTH AFTER 48 HOURS Resulted 03/18/17 17:35 Blood Blood Culture - Preliminary NO GROWTH AFTER 48 HOURS Resulted 03/18/17 18:30 Nasal Nares MRSA Culture - Final Staphylococcus Aureus - Mrsa Complete 03/18/17 18:30 Rectum VRE Culture - Final Enterococcus Faecalis - Vre Complete Current Medications Medications (Trade) Dose Ordered Sig/Yousuf Route PRN Reason Start Time Stop Time Status Last Admin Dose Admin Acetaminophen (Tylenol) 325 mg EVERY 4 HOURS PRN ORAL Fever/Headache/Mild Pain 03/18/17 22:30 04/17/17 22:29 Acyclovir/Dextrose (Zovirax/D5W) 110 ml @ 110 mls/hr Q8HR IV 03/19/17 15:00 03/26/17 14:59 03/21/17 13:23 Amiodarone HCl (Cordarone) 100 mg DAILY GT 03/19/17 09:00 04/18/17 08:59 03/21/17 09:01 Amlodipine Besylate (Norvasc) 5 mg DAILY GT 03/19/17 09:00 04/18/17 08:59 03/21/17 09:02 Apixaban (Eliquis) 2.5 mg BID GT 03/19/17 09:00 04/18/17 08:59 03/21/17 09:01 Cefepime HCl 2 gm/ Dextrose 110 ml @ 220 mls/hr Q24H IVPB 03/20/17 06:00 03/27/17 05:59 03/21/17 05:09 Clonidine HCl (Catapres) 0.1 mg Q6H PRN GT Systolic greater than 160 03/19/17 13:30 04/18/17 13:29 Clonidine HCl 0.1 mg 0.1 mg DAILY GT 03/20/17 09:00 04/19/17 08:59 03/21/17 09:02 Clotrimazole (Lotrimin) 1 applic EVERY 12 HOURS TOPIC 03/20/17 14:00 04/19/17 13:59 03/21/17 09:02 Ferrous Sulfate (Feosol) 300 mg DAILY GT 03/19/17 14:00 7/8/17 13:59 03/21/17 09:01 Finasteride (Proscar) 5 mg DAILY GT 03/19/17 09:00 04/18/17 08:59 03/21/17 09:01 Furosemide (Lasix) 20 mg DAILY GT 03/19/17 09:00 04/18/17 08:59 03/21/17 09:01 Magnesium Hydroxide (Mom) 30 ml PRN GT 03/18/17 22:30 04/17/17 22:29 Metoprolol Tartrate (Lopressor) 12.5 mg TWICE A DAY GT 03/19/17 09:00 04/18/17 08:59 Pantoprazole (Protonix) 40 mg DAILY ORAL 03/19/17 09:00 04/18/17 08:59 03/21/17 09:01 Potassium Chloride (K-Dur) 10 meq DAILY ORAL 03/19/17 09:00 04/18/17 08:59 03/21/17 09:01 Sodium Chloride (0.45% NS 1000ml) 1,000 ml @ 75 mls/hr [id number] IV 03/18/17 22:00 04/17/17 21:59 03/21/17 03:07 Valproic Acid (Depakene) 250 mg DAILY GT 03/19/17 09:00 04/18/17 08:59 03/21/17 09:02 Vancomycin HCl 1 ea 1 ea DAILY PRN MISC Per rx protocol 03/19/17 08:00 04/18/17 07:59 Vancomycin HCl/ Dextrose (Vancomycin/D5W) 275 ml @ 183.708 mls/hr Q24H IVPB 03/19/17 20:00 03/24/17 19:59 03/20/17 20:28 Aida Frederick M.D. Mar 21, 2017 14:03
[2017-03-21 15:17] VITALS: BP 104/69
--- NOTE | 2017-03-21 16:54 | General Progress Note ---
Assessment/Plan Assessment/Plan ASSESSMENT: 1. Leukopenia is very likely related to infection. wbc total is >4, does not need neupogen at the moment 2. Anemia 2/2 chronic disease- anemia w/u had been ordered and to be reviewed 3. Cellulitis of face on abx as per id team 4. Malfunctioning of the gastrostomy tube s/p replacement before 5. Maxillary sinusitis RECS: - Monitor counts - Peripheral smear ordered - Anemia w/u to be reviewed - Abx as per ID w/u - EnT eval - GI ppx with zantac - Appreciate consultation! Lissa villareal M.D.. Mar 19, 2017 23:21 Subjective Constitutional: Reports: no symptoms HEENT: Reports: no symptoms Cardiovascular: Reports: no symptoms Gastrointestinal/Abdominal: Reports: no symptoms Genitourinary: Reports: no symptoms Neurologic/Psychiatric: Reports: no symptoms Endocrine: Reports: no symptoms Hematologic/Lymphatic: Reports: no symptoms Allergies: Coded Allergies: AUBREY INHIBITORS (Verified Allergy, Unknown, ANGIOEDEMA, 09/17/12) Objective Last 24 Hour Vital Signs Date Time Temp Pulse Resp B/P Pulse Ox O2 Delivery O2 Flow Rate FiO2 03/21/17 15:17 97.3 67 18 104/69 96 Room Air 03/21/17 09:02 124/78 03/21/17 09:02 63 124/78 03/21/17 08:21 97.3 63 18 124/78 90 Room Air 03/21/17 04:00 97.3 61 20 146/79 98 Room Air 03/20/17 20:00 97.9 60 18 123/64 Room Air 03/20/17 17:45 62 116/49 Intake and Output 03/20/17 03/21/17 19:00 07:00 Intake Total 1460 ml 2007.416 ml Balance 1460 ml 2007.416 ml Free Water 150 ml 100 ml IV Total 710 ml 1407.416 ml Tube Feeding 600 ml 500 ml # Voids 5 Height (Feet): 5 Height (Inches): 3.00 Weight (Pounds): 145 General Appearance: alert EENT: TMs normal Neck: supple Cardiovascular: normal rate Respiratory/Chest: lungs clear Abdomen: soft Extremities: non-tender Edema: no edema noted Arm (L), no edema noted Arm (R), no edema noted Leg (L), no edema noted Leg (R), no edema noted Pedal (L), no edema noted Pedal (R), no edema noted Generalized Neurologic: alert Skin: warm/dry Lymphatic: normal anterior cervical (L), normal anterior cervical (R), normal axillary (L), normal axillary (R), normal inguinal (L), normal inguinal (R), normal other, normal posterior cervical (L), normal posterior cervical (R), normal submandibular (L), normal submandibular (R), normal supraclavicular (L), normal supraclavicular (R) SUE COREAS Mar 21, 2017 16:54
--- NOTE | 2017-03-21 20:40 | General Progress Note ---
Assessment/Plan Assessment/Plan ASSESSMENT: 1. Leukopenia is very likely related to infection. wbc total is >4, does not need neupogen at the moment 2. Anemia 2/2 chronic disease- anemia w/u has been reviewed 3. Cellulitis of face on abx as per id team 4. Malfunctioning of the gastrostomy tube s/p replacement before 5. Maxillary sinusitis RECS: - Monitor counts - Peripheral smear has been reviewed - Anemia w/u has been reviewed - Abx as per ID w/u - ENT eval - GI ppx with zantac - Appreciate consultation! Subjective Date patient seen: Mar 20, 2017 Constitutional: Reports: no symptoms HEENT: Reports: no symptoms Cardiovascular: Reports: no symptoms Respiratory: Reports: no symptoms Gastrointestinal/Abdominal: Reports: no symptoms Genitourinary: Reports: no symptoms Neurologic/Psychiatric: Reports: no symptoms Endocrine: Reports: no symptoms Hematologic/Lymphatic: Reports: anemia Allergies: Coded Allergies: AUBREY INHIBITORS (Verified Allergy, Unknown, ANGIOEDEMA, 09/17/12) Subjective no events to report, no night sweats Objective Last 24 Hour Vital Signs Date Time Temp Pulse Resp B/P Pulse Ox O2 Delivery O2 Flow Rate FiO2 03/21/17 17:13 67 104/69 03/21/17 15:17 97.3 67 18 104/69 96 Room Air 03/21/17 09:02 124/78 03/21/17 09:02 63 124/78 03/21/17 08:21 97.3 63 18 124/78 90 Room Air 03/21/17 04:00 97.3 61 20 146/79 98 Room Air Intake and Output 03/20/17 03/21/17 19:00 07:00 Intake Total 1460 ml 2007.416 ml Balance 1460 ml 2007.416 ml Free Water 150 ml 100 ml IV Total 710 ml 1407.416 ml Tube Feeding 600 ml 500 ml # Voids 5 Laboratory Tests 03/21/17 18:50: Vancomycin Level Trough 13.3H Height (Feet): 5 Height (Inches): 3.00 Weight (Pounds): 145 General Appearance: no apparent distress EENT: TMs normal Neck: supple Cardiovascular: normal rate Respiratory/Chest: chest wall non-tender Abdomen: no mass Genitourinary/Rectal: heme negative stool Extremities: non-tender Edema: 1+ Leg (L), 1+ Leg (R) Edema: mild edema Neurologic: alert Skin: warm/dry Jax Alcaraz Mar 21, 2017 20:40
[2017-03-21] MEDS: Vancomycin 1gm/D5W 275ml IVPB SCH ×2 (21:00)
[2017-03-22 04:00] VITALS: BP 146/76
[2017-03-22] MEDS: ACYCLOVIR IV SCH ×3 (05:15→21:08)
[2017-03-22] MEDS: D5W IV SCH ×3 (05:15→21:08)
[2017-03-22] MEDS: Cefepime HCl 2 GM in D5W 110 ML IVPB SCH (06:16)
[2017-03-22 07:42] LABS: MEAN CORPUSCULAR HEMOGLOBIN 33.5 PG (27.0-31.0); MEAN CORPUSCULAR HGB CONC 32.7 G/DL (32.0-36.0); MEAN CORPUSCULAR VOLUME 103 FL (80-99); MEAN PLATELET VOLUME 8.8 FL (6.5-10.1); PLATELET COUNT 207 K/UL (150-450); RED CELL DISTRIBUTION WIDTH 12.5 % (11.6-14.8); WHITE BLOOD COUNT 2.6 K/UL (4.8-10.8)
[2017-03-22 07:47] LABS: ANION GAP 9 (5-15); CALCIUM 9.3 mg/dL (8.6-10.2); CARBON DIOXIDE 35 mEQ/L (20-30); CHLORIDE 91 mEQ/L (98-107); CREATININE 0.7 mg/dL (0.7-1.2); HEMOLYSIS 5; POTASSIUM 3.9 mEQ/L (3.4-4.9); SODIUM 135 mEQ/L (135-145)
[2017-03-22 08:31] VITALS: BP 136/95
[2017-03-22] MEDS: Eliquis 2.5mg tablet GT SCH ×2 (08:32→17:12)
[2017-03-22] MEDS: Valproic Acid 250mg/5ml Liquid GT SCH (08:33)
[2017-03-22] MEDS: Metoprolol 25mg tab GT SCH ×2 (08:33→17:01)
[2017-03-22] MEDS: Ferrous Sulfate 300 MG/5 ML UDC GT SCH (08:33)
[2017-03-22] MEDS: Amiodarone 200mg tab GT SCH (08:34)
[2017-03-22 08:40] LABS: EOSINOPHILS % (MANUAL) 5 % (0-3); LYMPHOCYTES % (MANUAL) 29 % (20-45); NEUTROPHILS % (MANUAL) 58 % (45-75); TOTAL CELLS COUNTED 100
[2017-03-22 08:41] LABS: BAND NEUTROPHILS % (MANUAL) 0 % (0-8); BASOPHILS % (MANUAL) 0 % (0-2); MACROCYTES 1+; PLATELET ESTIMATE ADEQUATE; PLATELET MORPHOLOGY NORMAL
[2017-03-22] MEDS: Vancomycin 750mg/D5W 275ml IVPB SCH ×4 (09:22→20:15)
[2017-03-22 12:03] VITALS: BP 134/92
[2017-03-22 16:00] VITALS: BP 104/67
[2017-03-22] MEDS ORDERED: 1/2 NS 1000ml IV ONE (18:45)
[2017-03-22 20:00] VITALS: BP 92/57
--- NOTE | 2017-03-22 22:30 | Cardiology Report ---
APPROVED REPORT EKG Measurement Heart [id number] AL [id number] [id number] Atrial pacing with frequent premature ventricular complexes Abnormal ECG
--- NOTE | 2017-03-22 23:32 | General Progress Note ---
Assessment/Plan Assessment/Plan ASSESSMENT: 1. Leukopenia is very likely related to infection. wbc total was before >4, does not need neupogen at the moment, ANC goal >1000 2. Anemia 2/2 chronic disease- anemia w/u has been reviewed 3. Cellulitis of face on abx as per id team 4. Malfunctioning of the gastrostomy tube s/p replacement before 5. Maxillary sinusitis RECS: - Monitor counts - Peripheral smear has been reviewed - Anemia w/u has been reviewed - Abx as per ID w/u - ENT eval - GI ppx with zantac - Appreciate consultation! Subjective Constitutional: Reports: no symptoms HEENT: Reports: no symptoms Cardiovascular: Reports: no symptoms Respiratory: Reports: no symptoms Genitourinary: Reports: no symptoms Neurologic/Psychiatric: Reports: no symptoms Endocrine: Reports: no symptoms Hematologic/Lymphatic: Reports: anemia Allergies: Coded Allergies: AUBREY INHIBITORS (Verified Allergy, Unknown, ANGIOEDEMA, 09/17/12) Subjective no events to report, no night sweats Objective Last 24 Hour Vital Signs Date Time Temp Pulse Resp B/P Pulse Ox O2 Delivery O2 Flow Rate FiO2 03/22/17 20:00 97.9 60 18 92/57 96 Room Air 03/22/17 16:00 97.3 83 18 104/67 Room Air 03/22/17 12:03 97.3 75 18 134/92 100 Room Air 03/22/17 08:33 60 136/95 03/22/17 08:32 136/95 03/22/17 08:31 97.0 60 18 136/95 99 Room Air 03/22/17 04:00 97.6 60 20 146/76 100 Room Air Intake and Output 03/21/17 03/22/17 19:00 07:00 Intake Total 1585 ml 1505 ml Balance 1585 ml 1505 ml Free Water 100 ml 100 ml IV Total 935 ml 855 ml Tube Feeding 550 ml 550 ml Laboratory Tests 03/22/17 05:45: White Blood Count 2.6L, Red Blood Count 3.80L, Hemoglobin 12.7L, Hematocrit 39.0L, Mean Corpuscular Volume 103H, Mean Corpuscular Hemoglobin 33.5H, Mean Corpuscular Hemoglobin Concent 32.7, Red Cell Distribution Width 12.5, Platelet Count 207, Mean Platelet Volume 8.8, Neutrophils (%) (Auto) , Lymphocytes (%) ( Auto) , Monocytes (%) (Auto) , Eosinophils (%) (Auto) , Basophils (%) (Auto) , Differential Total Cells Counted 100, Neutrophils % (Manual) 58, Lymphocytes % ( Manual) 29, Monocytes % (Manual) 8, Eosinophils % (Manual) 5H, Basophils % ( Manual) 0, Band Neutrophils 0, Platelet Estimate Adequate, Platelet Morphology Normal, Macrocytosis 1+, Sodium Level 135, Potassium Level 3.9, Chloride Level 91L, Carbon Dioxide Level 35H, Anion Gap 9, Blood Urea Nitrogen 18, Creatinine 0.7, Estimat Glomerular Filtration Rate , Glucose Level 73L, Calcium Level 9.3 Height (Feet): 5 Height (Inches): 3.00 Weight (Pounds): 145 General Appearance: no apparent distress EENT: TMs normal Neck: supple Cardiovascular: regular rhythm Respiratory/Chest: chest wall non-tender Abdomen: non tender Extremities: non-tender Edema: 1+ Leg (L), 1+ Leg (R) Edema: mild edema Neurologic: no motor/sensory deficits, oriented x 3 Skin: warm/dry Jax Alcaraz Mar 22, 2017 23:32
[2017-03-23] VITALS: BP 113/73
[2017-03-23 04:00] VITALS: BP 138/88
[2017-03-23] MEDS: Cefepime HCl 2 GM in D5W 110 ML IVPB SCH (05:03)
--- NOTE | 2017-03-23 05:15 | Progress Note ---
DATE: 03/22/2017 SUBJECTIVE: The facial pain is improving. Denies nausea, vomiting, or diarrhea. Denies fever or chills. Denies shortness of breath. Denies weakness as well. OBJECTIVE: VITAL SIGNS: Stable. HEENT: PERRLA. The patient's facial edema is improving. NECK: Supple. CHEST: Clear to auscultation. CARDIOVASCULAR: Regular rate and rhythm. GASTROINTESTINAL: Soft. Positive bowel sounds. ASSESSMENT AND PLAN: The patient's facial cellulitis is improving. Discharge planning, we might be able to discharge the patient as early as tomorrow once we get clearance from the Infectious Diseases. the patient is afebrile and denies nausea, vomiting, fever, and chills. Laina Pereira M.D. DR: JERMAINE JOB#: [id number] CC:
[2017-03-23] MEDS: D5W IV SCH ×2 (05:41→13:17)
[2017-03-23] MEDS: ACYCLOVIR IV SCH ×2 (05:41→13:17)
[2017-03-23 08:10] VITALS: BP 115/75
[2017-03-23] MEDS ORDERED: KCl 10% 20 mEq/15ml liquid GT SCH (10:00)
[2017-03-23] MEDS: Amiodarone 200mg tab GT SCH (10:11)
[2017-03-23] MEDS: Eliquis 2.5mg tablet GT SCH (10:12)
[2017-03-23] MEDS: Valproic Acid 250mg/5ml Liquid GT SCH (10:14)
[2017-03-23] MEDS: Ferrous Sulfate 300 MG/5 ML UDC GT SCH (10:14)
[2017-03-23] MEDS: Vancomycin 750mg/D5W 275ml IVPB SCH ×2 (10:16)
[2017-03-23 11:58] VITALS: BP 147/84
[2017-03-23] MEDS: Metoprolol 25mg tab GT SCH (12:50)
--- NOTE | 2017-03-23 13:04 | General Progress Note ---
Assessment/Plan Problem List: (1) Cellulitis (2) Diabetes ICD Codes: E11.9 - Diabetes SNOMED: 37123693 (3) HTN (hypertension) ICD Codes: I10 - HTN (hypertension) SNOMED: 98051275 (4) Sepsis ICD Codes: A41.9 - Sepsis SNOMED: 63524769 (5) Hypothyroidism ICD Codes: E03.9 - Hypothyroidism, unspecified SNOMED: 50387346 Status: progressing Assessment/Plan cellutitis improving dc to snf today see dc summary Subjective ROS Limited/Unobtainable: Yes Constitutional: Reports: no symptoms Allergies: Coded Allergies: AUBREY INHIBITORS (Verified Allergy, Unknown, ANGIOEDEMA, 09/17/12) Objective Last 24 Hour Vital Signs Date Time Temp Pulse Resp B/P Pulse Ox O2 Delivery O2 Flow Rate FiO2 03/23/17 12:50 61 147/84 03/23/17 12:50 61 147/84 03/23/17 11:58 97.7 61 20 147/84 100 Room Air 03/23/17 10:12 115/75 03/23/17 08:10 97.2 60 19 115/75 99 Room Air 03/23/17 04:00 97.0 60 20 138/88 100 Room Air 03/23/17 00:00 97.0 61 18 113/73 98 Room Air 03/22/17 20:00 97.9 60 18 92/57 96 Room Air 03/22/17 16:00 97.3 83 18 104/67 Room Air Intake and Output 03/22/17 03/23/17 19:00 07:00 Intake Total 1802.416 ml 1380 ml Balance 1802.416 ml 1380 ml Free Water 200 ml 100 ml IV Total 1002.416 ml 780 ml Tube Feeding 600 ml 500 ml # Voids 3 # Bowel Movements 1 Height (Feet): 5 Height (Inches): 3.00 Weight (Pounds): 145 EENT: PERRL/EOMI Cardiovascular: normal rate Respiratory/Chest: lungs clear Laina Pereira MD Mar 23, 2017 13:04
[2017-03-23] MEDS ORDERED: CEFEPIME-D2 GM/50 ML IVPB (15:12)
[2017-03-23] MEDS ORDERED: VANCOMYCIN1 GM/2502 IVPB (15:13)
[2017-03-23] MEDS ORDERED: VALACYCLOVIR500 MG ORAL (15:18)
--- NOTE | 2017-03-23 15:20 | Infectious Diseases Prog Note ---
Assessment/Plan Problems: (1) Facial cellulitis Assessment & Plan: recurrent, with skin blisters with negative serology for shingles, most likely bacterial cellulitis , will continue vancomycin with cefepime for 10 days total , and stop acyclovir empirically since his serology is negative . ENT was consulted . may remove from contact isolation (2) Maxillary sinusitis Assessment & Plan: on wide spectrum antibiotics coverage, had ENT eval (3) Diabetes Assessment & Plan: recommend tight glycemic control to keep blood glucose between 80-120 (4) Nose colonized with MRSA Assessment & Plan: will give bactroban for 5 days (5) Colonization with VRE (vancomycin-resistant enterococcus) Assessment & Plan: he is colonized , may remove from contact isolation Subjective Constitutional: Reports: no symptoms HEENT: Reports: no symptoms Respiratory: Reports: no symptoms Cardiovascular: Reports: no symptoms Gastrointestinal/Abdominal: Reports: no symptoms Genitourinary: Reports: no symptoms Neurologic: Reports: no symptoms Psychiatric: Reports: no symptoms Skin: Reports: other - redness Endocrine: Reports: no symptoms Hematologic: Reports: no symptoms Allergies: Coded Allergies: AUBREY INHIBITORS (Verified Allergy, Unknown, ANGIOEDEMA, 09/17/12) Objective Vital Signs Last 24 Hour Vital Signs Date Time Temp Pulse Resp B/P Pulse Ox O2 Delivery O2 Flow Rate FiO2 03/23/17 12:50 61 147/84 03/23/17 12:50 61 147/84 03/23/17 11:58 97.7 61 20 147/84 100 Room Air 03/23/17 10:12 115/75 03/23/17 08:10 97.2 60 19 115/75 99 Room Air 03/23/17 04:00 97.0 60 20 138/88 100 Room Air 03/23/17 00:00 97.0 61 18 113/73 98 Room Air 03/22/17 20:00 97.9 60 18 92/57 96 Room Air 03/22/17 16:00 97.3 83 18 104/67 Room Air Height (Feet): 5 Height (Inches): 3.00 Weight (Pounds): 145 General Appearance: WD/WN, no acute distress HEENT: atraumatic, anicteric, mucous membranes moist, other - facial redness Respiratory/Chest: chest wall non-tender, lungs clear, normal breath sounds, no respiratory distress, no accessory muscle use Cardiovascular: normal peripheral pulses, normal rate, regular rhythm, no gallop/murmur Abdomen: normal bowel sounds, soft, non tender, no organomegaly, non distended , no mass Extremities: no cyanosis, no clubbing Skin: other - red with dried blisters Current Medications Medications (Trade) Dose Ordered Sig/Yousuf Route PRN Reason Start Time Stop Time Status Last Admin Dose Admin Acetaminophen (Tylenol) 325 mg EVERY 4 HOURS PRN ORAL Fever/Headache/Mild Pain 03/18/17 22:30 04/17/17 22:29 Acyclovir/Dextrose (Zovirax/D5W) 110 ml @ 110 mls/hr Q8HR IV 03/19/17 15:00 03/26/17 14:59 03/23/17 13:17 Amiodarone HCl (Cordarone) 100 mg DAILY GT 03/19/17 09:00 04/18/17 08:59 03/23/17 10:11 Amlodipine Besylate (Norvasc) 5 mg DAILY GT 03/19/17 09:00 04/18/17 08:59 03/23/17 12:50 Apixaban (Eliquis) 2.5 mg BID GT 03/19/17 09:00 04/18/17 08:59 03/23/17 10:12 Cefepime HCl/ Dextrose (Maxipime/D5W) 110 ml @ 220 mls/hr Q24H IVPB 03/20/17 06:00 03/27/17 05:59 03/23/17 05:03 Clonidine HCl (Catapres) 0.1 mg Q6H PRN GT Systolic greater than 160 03/19/17 13:30 04/18/17 13:29 Clonidine HCl 0.1 mg 0.1 mg DAILY GT 03/20/17 09:00 04/19/17 08:59 03/23/17 10:12 Clotrimazole (Lotrimin) 1 applic EVERY 12 HOURS TOPIC 03/20/17 14:00 04/19/17 13:59 03/23/17 10:26 Ferrous Sulfate (Feosol) 300 mg DAILY GT 03/19/17 14:00 04/18/17 13:59 03/23/17 10:14 Finasteride (Proscar) 5 mg DAILY GT 03/19/17 09:00 04/18/17 08:59 03/23/17 10:14 Furosemide (Lasix) 20 mg DAILY GT 03/19/17 09:00 04/18/17 08:59 03/23/17 10:14 Lansoprazole (Prevacid) 30 mg DAILY GT 03/23/17 10:00 04/22/17 09:59 03/23/17 10:11 Magnesium Hydroxide (Mom) 30 ml PRN GT 03/18/17 22:30 04/17/17 22:29 Metoprolol Tartrate (Lopressor) 12.5 mg TWICE A DAY GT 03/19/17 09:00 04/18/17 08:59 03/23/17 12:50 Mupirocin 1 applic 1 applic THREE TIMES A DAY TOPIC 03/21/17 15:00 03/26/17 14:59 03/23/17 12:51 Potassium Chloride (KCl 10% 20 mEq oral solution) 10 meq DAILY GT 03/23/17 10:00 04/22/17 09:59 03/23/17 13:17 Sodium Chloride (0.45% NS 1000ml) 1,000 ml @ 75 mls/hr [id number] IV 03/18/17 22:00 04/17/17 21:59 03/23/17 10:17 Valproic Acid (Depakene) 250 mg DAILY GT 03/19/17 09:00 04/18/17 08:59 03/23/17 10:14 Vancomycin HCl 1 ea 1 ea DAILY PRN MISC Per rx protocol 03/19/17 08:00 04/18/17 07:59 Vancomycin HCl/ Dextrose (Vancomycin/D5W) 275 ml @ 183.708 mls/hr Q12H IVPB 03/22/17 09:00 03/27/17 08:59 03/23/17 10:16 Aida Frederick M.D. Mar 23, 2017 15:20
[2017-03-23] MEDS ORDERED: CLOTRIMAZOLE15 GM TOPIC ×2 (15:23→15:25)
[2017-03-23] MEDS ORDERED: MUPIROCIN22 GM TOPIC (15:26)
[2017-03-23 15:49] VITALS: BP 93/65
--- NOTE | 2017-03-24 01:45 | Progress Note ---
DATE: 03/22/2017 SUBJECTIVE: The patient is calm and cooperative. No behavioral issues. Appears to be a poor historian and confused. The confusion is improving. The patient is compliant with medications. Sleep and appetite are adequate. MENTAL STATUS EXAMINATION: The patient is alert and oriented times self and place. Mood is neutral. Affect is constricted, congruent with mood. Thought process is concrete. Thought content, no suicidal or homicidal ideation. Cognition is impaired. ASSESSMENT: 1. Cognitive impairment. 2. Major depressive disorder. PLAN: 1. The patient will be continued on Wellbutrin. 2. We will continue Depakote. 3. We will continue to provide the patient with supportive therapy and reality orientation. Kenyon Carlin M.D. DR: COCO JOB#: [id number] CC:
--- NOTE | 2017-03-24 03:45 | Progress Note ---
DATE: 03/23/2017 SUBJECTIVE: The patient was seen in bed, calm, cooperative. No behavior issues. More engaged. He is looking forward to be discharged . MENTAL STATUS EXAMINATION: Alert and oriented x3. Mood is dysphoric. Affect is constricted, congruent with mood. Thought process is queta. Thought content, no suicidal or homicidal ideations. Cognitive impaired. Insight and judgement normal. ASSESSMENT: 1. Major depressive disorder. 2. Cellulitis. PLAN: 1. The patient will be continued on combination of . 2. Provide the patient with supportive therapy and reality orientation. Kenyon Carlin M.D. DR: FREDDIE JOB#: [id number] CC:
--- NOTE | 2017-03-24 08:06 | Discharge Summary ---
Discharge Summary Hospital Course Date of Admission Mar 18, 2017 at 18:02 Date of Discharge Mar 23, 2017 at 16:30 Admitting Diagnosis facial cellulitis/abscess HPI Darek Garcia is a 76 year old male who was admitted on Mar 18, 2017 at 18: 02 for Facial Cellulitis,Abscess Hospital Course dc summary #[id number] Discharge Medications Continued Medications: Acetaminophen* (Tylenol*) 120 Mg Supp.rect 120 MG RECTAL Q4H PRN for Mild Pain/Temp > 100.5, SUPP Acetaminophen* (Tylenol Extra Strength*) 500 Mg Tablet 325 MG GT Q4HR PRN for Fever/Headache/Mild Pain, TAB 0 Refills Amiodarone Hcl* (Pacerone*) 100 Mg Tablet 100 MG GT DAILY, TAB Amlodipine Besylate* (Amlodipine Besylate*) 5 Mg Tablet 5 MG GT DAILY, TAB Apixaban (Eliquis) 2.5 Mg Tablet 2.5 MG GT BID, TAB Bupropion Hcl* (Wellbutrin*) 300 Mg Tab.er.24h 75 MG GT BID, #30 TAB 0 Refills Cefepime Hcl/D5w (Cefepime-Dextrose 2 Gm/50 Ml) 2 Gm/50 Ml Piggyback 2 GM IVPB Q24H for 5 Days, BAG Clonidine Hcl* (Catapres*) 0.1 Mg Tablet 0.1 MG GT DAILY, TAB Clonidine Hcl* (Catapres*) 0.1 Mg Tablet 0.1 MG GT EVERY 6 HOURS, TAB Clotrimazole* (Lotrimin*) 15 Gm Cream..g. 1 APPLIC TOPIC Q12HR, GM Cranberry Extract (Cranberry) 200 Mg Capsule 405 MG GT DAILY, CAP Esomeprazole Magnesium (Nexium) 40 Mg Capsule.dr 40 MG GT DAILY, CAP Ferrous Sulfate* (Ferrous Sulfate*) 325 Mg Tablet 7.5 ML GT DAILY, #30 TAB 0 Refills Finasteride* (Proscar*) 5 Mg Tablet 5 MG GT DAILY, #30 TAB 0 Refills Furosemide* (Lasix*) 20 Mg Tablet 20 MG GT DAILY, TAB Magnesium Hydroxide* (Milk Of Magnesia*) 400 Mg/5 Ml Oral.susp 30 ML GT PRN for Constipation, ML Metformin Hcl* (Glucophage*) 500 Mg Tablet 500 MG GT BID, TAB Metoprolol Tartrate* (Metoprolol Tartrate*) 25 Mg Tablet 12.5 MG GT TWICE A DAY, TAB Mupirocin* (Mupirocin*) 22 Gm Oint...g. 1 APPLIC TOPIC THREE TIMES A DAY for 2 Days, GM Potassium Chloride (Potassium Chloride) 10 Meq Tab.er.prt 10 MEQ GT DAILY, TAB Valproate Sodium (Valproic Acid) 250 Mg/5 Ml Solution 250 MG GT DAILY Vancomycin Hcl/D5w (Vancomycin-D5w 1 G/250 Ml) 1 Gm/250 Ml Plast..bag 750 MG IVPB Q12HR for 5 Days, BAG Discharge Condition Upon Discharge: stable Discharge Disposition Patient was discharged to SNF/Subacute Facility(03) Discharge Diagnoses: Dario (Freddie)Lyndsay NP Mar 24, 2017 08:06
--- NOTE | 2017-03-24 10:08 | General Progress Note ---
Assessment/Plan Assessment/Plan ASSESSMENT: 1. Leukopenia is very likely related to infection. wbc total was before >4, does not need neupogen at the moment, ANC goal >1000 2. Anemia 2/2 chronic disease- anemia w/u has been reviewed 3. Cellulitis of face on abx as per id team 4. Malfunctioning of the gastrostomy tube s/p replacement before 5. Maxillary sinusitis RECS: - Monitor counts - Peripheral smear has been reviewed - Anemia w/u has been reviewed - Abx as per ID w/u - ENT eval - GI ppx with zantac - Appreciate consultation! Subjective Date patient seen: Mar 23, 2017 Constitutional: Reports: no symptoms HEENT: Reports: no symptoms Cardiovascular: Reports: no symptoms Respiratory: Reports: no symptoms Gastrointestinal/Abdominal: Reports: no symptoms Neurologic/Psychiatric: Reports: no symptoms Endocrine: Reports: no symptoms Hematologic/Lymphatic: Reports: no symptoms Allergies: Coded Allergies: AUBREY INHIBITORS (Verified Allergy, Unknown, ANGIOEDEMA, 09/17/12) Subjective no fevers, chills, night sweats, pt is clear for discharge Objective Last 24 Hour Vital Signs Date Time Temp Pulse Resp B/P Pulse Ox O2 Delivery O2 Flow Rate FiO2 03/23/17 15:49 97.0 57 20 93/65 100 Room Air 03/23/17 12:50 61 147/84 03/23/17 12:50 61 147/84 03/23/17 11:58 97.7 61 20 147/84 100 Room Air 03/23/17 10:12 115/75 Intake and Output 03/23/17 03/24/17 19:00 07:00 Intake Total 1545.000 ml Balance 1545.000 ml Free Water 260 ml IV Total 835.000 ml Tube Feeding 450 ml Height (Feet): 5 Height (Inches): 3.00 Weight (Pounds): 145 General Appearance: WD/WN EENT: PERRL/EOMI Neck: non-tender Cardiovascular: normal peripheral pulses Respiratory/Chest: chest wall non-tender Abdomen: normal bowel sounds Extremities: non-tender Edema: no edema noted Leg (L), no edema noted Leg (R), no edema noted Pedal (L) , no edema noted Pedal (R) Neurologic: rehabilitation technician II-XII grossly normal Jax Alcaraz Mar 24, 2017 10:08
--- NOTE | 2017-03-24 23:45 | Discharge Summary 2 SIG ---
DATE OF ADMISSION: 03/18/2017 DATE OF DISCHARGE: 03/23/2017 REASON FOR ADMISSION: 76-year-old male with history of head and neck CA, G-tube, dysphagia, hypertension, diabetes, history of CVA, anemia, pacemaker, paroxysmal atrial fibrillation, hypothyroidism presented with recurrent left-sided facial cellulitis. Maxillofacial CT was done in the emergency room and revealed no evidence of abscess but showed persistent and recurrent left facial cellulitis and persistent left maxillary sinus disease. No leukocytosis. No fever. Sodium -128. Urinalysis negative. The patient was admitted for further management. ADMITTING DIAGNOSES: 1. Recurrent facial cellulitis. 2. Hyponatremia. 3. Maxillary sinusitis. 4. Diabetes mellitus. HOSPITAL STAY: The patient admitted. ID consult requested. The patient started on broad-spectrum antibiotics. According to the ID, he wanted to rule out shingles versus streptococcal related cellulitis. The patient was started on vancomycin and cefepime empirically and acyclovir was added for possible shingles. Serology for shingles was negative. Acyclovir was discontinued. Blood cultures were negative. ID recommended to continue antibiotic at the assisted facility upon discharge for total of 10 days. Since the patient was on broad spectrum spectrum antibiotic, they cover sinusitis as well. ENT seen and evaluated the patient. The patient was well known to the ENT doctor. According to ENT, the patient was seen by him few months ago for left-sided facial swelling where it was decided not to do any workup. He confirmed that CT scan actually showed inflammatory area smaller than it was at his last visit. According to the ENT surgeon , taking into account the patient's overall physical status and immunology, he did not recommend doing any cleaning out the areas within the fatty tissue in the buccal mucosa or between that and skin. Per ENT specialist, surgery would not alleviate the problem or infection. He recommended longer course of antibiotic which was discussed with the ID and therefore the patient will need a total of 10 days of antibiotics. The patient does not need to be treated from an ENT facial process prospective in the office per ENT recommendation. Blood sugar was managed with sliding scale of insulin and was stable. The patient was on the IV fluids. Sodium up to normal. Hyponatremia was likely depletion. Psychiatrist seen and evaluated the patient. According to psychiatrist, the patient has a major depressive disorder and dementia, the patient on Wellbutrin and Depakote, continued; however Wellbutrin can decrease appetite and recommended by psychiatrist if patient is willing, to consider to change it. Armor Reconnaissance Specialist seen and evaluated the patient. The patient with leukopenia which according to building drafting officer likely related to infection, stable, no need for Neupogen. Hemoglobin and hematocrit remained at the baseline. According to building drafting officer, the patient had anemia of chronic disease. The patient was stable for discharge to assisted facility on antibiotics to complete the course. FINAL DIAGNOSES: 1. Recurrent facial cellulitis, most likely bacterial cellulitis. 2. Hyponatremia, depletional. 3. Maxillary sinusitis. 4. Diabetes mellitus. 5. Leukopenia. 6. Anemia of chronic disease. 7. Major depressive disorder. 8. Dementia. DISCHARGE MEDICATIONS: See medication reconciliation list. DISCHARGE INSTRUCTIONS: The patient discharged to assisted facility. FOLLOWUP: Followup with medical doctor at the facility . Laina Pereira M.D. I have been assigned to dictate discharge summary on this account and I was not involved in the patient's management. Lyndsay Bishop ([facility] N.PLinda DR: David JOB#: [id number] CC: [email or web address]
== END 2017-03-23 16:30 | DRG 603 ==
LOC: EDBD 17:30 → EMR 17:48 → 4E 18:02 → EDBEDREQ 20:59
DX: L03.211 Cellulitis of face (principal); I48.0 Paroxysmal atrial fibrillation; F03.90 Unspecified dementia, unspecified severity, without behavioral disturbance, psychotic disturbance, mood disturbance, and anxiety; E87.1 Hypo-osmolality and hyponatremia; Z43.1 Encounter for attention to gastrostomy; R13.10 Dysphagia, unspecified; B96.89 Other specified bacterial agents as the cause of diseases classified elsewhere; E11.9 Type 2 diabetes mellitus without complications; I10 Essential (primary) hypertension; J32.0 Chronic maxillary sinusitis; D63.8 Anemia in other chronic diseases classified elsewhere; F32.9 Major depressive disorder, single episode, unspecified; Z85.89 Personal history of malignant neoplasm of other organs and systems; K21.9 Gastro-esophageal reflux disease without esophagitis; N40.0 Benign prostatic hyperplasia without lower urinary tract symptoms; Z88.8 Allergy status to other drugs, medicaments and biological substances; Z87.891 Personal history of nicotine dependence; Z92.3 Personal history of irradiation; E03.9 Hypothyroidism, unspecified; Z86.73 Personal history of transient ischemic attack (TIA), and cerebral infarction without residual deficits; Z95.0 Presence of cardiac pacemaker; J44.9 Chronic obstructive pulmonary disease, unspecified; Z22.322 Carrier or suspected carrier of Methicillin resistant Staphylococcus aureus; Z79.01 Long term (current) use of anticoagulants
CPT/HCPCS: 36415; 70487; 71010; 80048; 80053; 80202; 81003; 82550; 82553; 82728; 82962; 83605; 83735; 83880; 84484; 85007; 85025; 85610; 85730; 86787; 87040; 87081; 93005; J2405

== ENCOUNTER 2017-04-30 16:35 | Inpatient (IN) | payer MEDICARE, MEDICAID ==
[~2017-04-30] VITALS: Ht 172.7 cm; Wt 68.0 kg
[2017-04-30 16:35] VITALS: BP 87/54
[~2017-04-30 16:35] MED LIST changes: +ACETAMINOPHEN120 MG RECTAL; +CEFEPIME-D2 GM/50 ML IVPB; +CLOTRIMAZOLE15 GM TOPIC; +FERROUS SULFAT325 MG GT; +MILK OF MA400 MG/51 GT; +MUPIROCIN22 GM TOPIC; +TYLENOL EXTRA500 MG GT; +VALACYCLOVIR500 MG ORAL; +VANCOMYCIN1 GM/2502 IVPB
[2017-04-30 17:09] LABS: BASOPHILS % (AUTO) 0.5 % (0.0-2.0); EOSINOPHILS % (AUTO) 1.2 % (0.0-3.0); LYMPHOCYTES % (AUTO) 11.9 % (20.0-45.0); MEAN CORPUSCULAR HEMOGLOBIN 36.3 PG (27.0-31.0); MEAN CORPUSCULAR HGB CONC 34.7 G/DL (32.0-36.0); MEAN CORPUSCULAR VOLUME 104 FL (80-99); MEAN PLATELET VOLUME 7.8 FL (6.5-10.1); MONOCYTES % (AUTO) 8.2 % (1.0-10.0); NEUTROPHILS % (AUTO) 78.1 % (45.0-75.0); PLATELET COUNT 233 K/UL (150-450); RED BLOOD COUNT 2.89 M/UL (4.70-6.10); RED CELL DISTRIBUTION WIDTH 13.5 % (11.6-14.8); WHITE BLOOD COUNT 6.4 K/UL (4.8-10.8)
[2017-04-30 17:16] LABS: TROPONIN I < 0.30 ng/mL (<=0.30)
[2017-04-30 17:19] LABS: ALANINE AMINOTRANSFERASE 5 U/L (3-41); ANION GAP 8 (5-15); ASPARTATE AMINO TRANSFERASE 16 U/L (5-40); CARBON DIOXIDE 29 mEQ/L (20-30); CHLORIDE 96 mEQ/L (98-107); HEMOLYSIS 1; SODIUM 133 mEQ/L (135-145); TOTAL PROTEIN 6.5 g/dL (6.6-8.7)
[2017-04-30 17:30] LABS: CKMB 1.7 ng/mL (< 6.7)
[2017-04-30 17:44] VITALS: BP 90/54
--- NOTE | 2017-04-30 17:48 | Emergency Room Report ---
History of Present Illness General Chief Complaint: General Complaint Source: Medical Record Present Illness HPI 76-year-old male presents to ED for evaluation. Patient comes from group home for G-tube placement. Patient pulled a G-tube at group home. Nursing staff unclear what size G-tube it was. per EMS patient is also hypotensive. Upon arrival patient showing no signs of distress. Denies any fevers or chills. Denies chest pain shortness of breath. No other aggravating or relieving factors. Denies any other associated symptoms Allergies: Coded Allergies: AUBREY INHIBITORS (Verified Allergy, Unknown, ANGIOEDEMA, 09/17/12) Patient History Past Medical History: DM, COPD, CVA/TIA Past Surgical History: pacemaker Pertinent Family History: none Social History: Denies: alcohol use, drug use, smoking Immunizations: UTD Reviewed Nursing Documentation: PMH: Agreed, PSxH: Agreed Nursing Documentation-PMH Hx Cardiac Problems: Yes Hx Hypertension: Yes Hx Pacemaker: Yes Hx Asthma: Yes Hx COPD: Yes Hx Diabetes: Yes Hx Cancer: No Hx Dialysis: No History Of Psychiatric Problem: No Hx Cerebrovascular Accident: Yes Hx Seizures: Yes Hx Aphasia: Yes Hx Dysphasia: Yes Hx Weakness: Yes Hx Fatigue: Yes Review of Systems All Other Systems: negative except mentioned in HPI Physical Exam Vital Signs Date Time Temp Pulse Resp B/P Pulse Ox O2 Delivery O2 Flow Rate FiO2 04/30/17 16:23 98.1 62 16 110/60 98 Room Air 04/30/17 16:35 4.0 Sp02 EP Interpretation: reviewed, normal General Appearance: no apparent distress, alert, GCS 15, non-toxic Head: normocephalic Eyes: bilateral eye PERRL, bilateral eye normal inspection ENT: normal ENT inspection Neck: normal inspection Cardiovascular #1: regular rate, rhythm, no edema Gastrointestinal: normal bowel sounds, non tender, soft, non-distended, no guarding, no rebound, other - Gtube site C/D/I Rectal: deferred Genitourinary: no CVA tenderness Musculoskeletal: normal inspection Neurologic: alert, oriented x3, responsive, motor strength/tone normal, sensory intact, speech normal Psychiatric: normal inspection Skin: normal inspection Lymphatic: normal inspection Procedures Additional Procedure Procedure Narrative G-tube placement Patient placed on stretcher. Old G-tube is removed by deflating the balloon using syringe. G-tube site is inspected with no contraindications to G-tube placement. 16 F G-tube slowly inserted until resistance is met; G-tube balloon is slowly filled with 20 mL of normal saline and slowly retracted back until resistance is met. G-tube placement is confirmed with KUB study using Gastrografin Medical Decision Making Diagnostic Impression: Primary Impression: Malfunction of gastrostomy tube Additional Impression: Hypotension Qualified Codes: I95.9 - Hypotension, unspecified ER Course Hospital Course 76-year-old male presents ED for G-tube placement. hypotensive Differential Diagnosis - cellulitis, abscess, malfunctioning Gtube, sepsis Clinical course Patient placed on stretcher. After initial history and physical, I ordered labs , blood cultures, IV fluidss G-tube replaced at bedside w/ 16 [place] G-tube. KUB confirms G-tube placement Labs reviewed-no leukocytosis, hemoglobin/hematocrit stable, Na 130, K 5.0, BUN 31, BNP > 3000, Trop negative EKG - NSR, no acute changes interpreted by me CXR - cardiomegaly. KUB shows G-tube in place IV fluids given with blood pressure improved. Kayexelate given Case discussed with Dr. Pereira and he agreed to accept the patient to his service for further care and support Diagnosis - malfunction of G-tube, hypotension Admitted to floor in serious condition Labs Test 04/30/17 16:40 04/30/17 17:29 04/30/17 17:50 White Blood Count 6.4 K/UL (4.8-10.8) Red Blood Count 2.89 M/UL (4.70-6.10) Hemoglobin 10.5 G/DL (14.2-18.0) Hematocrit 30.2 % (42.0-52.0) Mean Corpuscular Volume 104 FL (80-99) Mean Corpuscular Hemoglobin 36.3 PG (27.0-31.0) Mean Corpuscular Hemoglobin Concent 34.7 G/DL (32.0-36.0) Red Cell Distribution Width 13.5 % (11.6-14.8) Platelet Count 233 K/UL (150-450) Mean Platelet Volume 7.8 FL (6.5-10.1) Neutrophils (%) (Auto) 78.1 % (45.0-75.0) Lymphocytes (%) (Auto) 11.9 % (20.0-45.0) Monocytes (%) (Auto) 8.2 % (1.0-10.0) Eosinophils (%) (Auto) 1.2 % (0.0-3.0) Basophils (%) (Auto) 0.5 % (0.0-2.0) Sodium Level 133 mEQ/L (135-145) Potassium Level 5.0 mEQ/L (3.4-4.9) Chloride Level 96 mEQ/L (98-107) Carbon Dioxide Level 29 mEQ/L (20-30) Anion Gap 8 (5-15) Blood Urea Nitrogen 31 mg/dL (7-23) Creatinine 1.0 mg/dL (0.7-1.2) Estimat Glomerular Filtration Rate mL/min (>60) Glucose Level 89 mg/dL (74-106) Calcium Level 10.0 mg/dL (8.6-10.2) Total Bilirubin 0.3 mg/dL (0.0-1.2) Aspartate Amino Transf (AST/SGOT) 16 U/L (5-40) Alanine Aminotransferase (ALT/SGPT) 5 U/L (3-41) Alkaline Phosphatase 67 U/L (40-129) Total Creatine Kinase 55 U/L (38-174) Creatine Kinase MB 1.7 ng/mL (< 6.7) Creatine Kinase MB Relative Index 3.0 Troponin I < 0.30 ng/mL (<=0.30) Pro-B-Type Natriuretic Peptide 3514 pg/mL (0-450) Total Protein 6.5 g/dL (6.6-8.7) Albumin 3.4 g/dL (3.5-5.2) Globulin 3.1 g/dL Albumin/Globulin Ratio 1.0 (1.0-2.7) Lactic Acid Level 0.90 mmol/L (0.66-2.22) Urine Color Yellow Urine Appearance Clear Urine pH 7 (4.5-8.0) Urine Specific [place] 1.005 (1.005-1.035) Urine Protein 1+ (NEGATIVE) Urine Glucose (UA) Negative (NEGATIVE) Urine Ketones Negative (NEGATIVE) Urine Occult Blood Negative (NEGATIVE) Urine Nitrite Negative (NEGATIVE) Urine Bilirubin Negative (NEGATIVE) Urine Urobilinogen 1 MG/DL (0.0-1.0) Urine Leukocyte Esterase Negative (NEGATIVE) EKG Diagnostic Results Rate: normal Rhythm: NSR ST Segments: no acute changes ASA given to the pt in ED: No Rhythm Strip Diag. Results EP Interpretation: yes Rhythm: NSR, no PVC's, no ectopy Chest X-Ray Diagnostic Results Chest X-Ray Diagnostic Results : Chest X-Ray Ordered: Yes # of Views/Limited/Complete: 1 View Indication: Other - ams Interpretation: no consolidation, no effusion, no pneumothorax, no acute cardiopulmonary disease, other - pacemaker. cardiomegaly Impression: No acute disease Interpreting ER Provider: Electronically signed by Ranjith Avila MD Other X-Ray Diagnostic Results Other X-Ray Diagnostic Results : X-Ray ordered: KUB # of Views/Limited Vs Complete: 1 View Indication: Other - Gtube placement EP Interpretation: Yes Interpretation: nonspecific bowel gas, no sbo, other - Gtube in place - contrast in stomach. no extravsation Impression: Other - Gtube in place Interpreting ER Provider: Electronically signed by Ranjith Avila MD Last Vital Signs Date Time Temp Pulse Resp B/P Pulse Ox O2 Delivery O2 Flow Rate FiO2 04/30/17 16:35 98.0 69 20 87/54 96 Nasal Cannula 4.0 Status: improved Disposition: ADMITTED INPATIENT Condition: Serious RANJITH AVILA M.D. Apr 30, 2017 17:48
[2017-04-30] MEDS ORDERED: PACERONE100 MG GT ×2 (17:49→18:01)
[2017-04-30] MEDS ORDERED: AMLODIPINE BESYL5 MG GT (17:49)
[2017-04-30] MEDS ORDERED: DULCOLAX10 MG RC (18:01)
[2017-04-30] MEDS ORDERED: CRANBERRY CONC500 MG GT (18:01)
[2017-04-30] MEDS ORDERED: FEROSUL220 MG/5 M GT (18:01)
[2017-04-30] MEDS ORDERED: CATAPRES0.1 MG GT ×2 (18:01)
[2017-04-30] MEDS ORDERED: ELIQUIS2.5 MG GT (18:01)
[2017-04-30] MEDS ORDERED: Morphine Sulfate 4mg/ml Inj IVP PRN (18:30)
[2017-04-30] MEDS ORDERED: FUROSEMIDE20 M1 GT (18:31)
[2017-04-30] MEDS ORDERED: ACETAMINOPHEN325 M1 GT ×3 (18:31→18:44)
[2017-04-30] MEDS ORDERED: NEXIUM40 MG GT (18:31)
[2017-04-30] MEDS ORDERED: POTASSIUM30 MEQ/22. GT (18:31)
[2017-04-30] MEDS ORDERED: MULTI-DELYN237 ML GT (18:31)
[2017-04-30] MEDS ORDERED: PROSCAR5 MG GT (18:31)
[2017-04-30] MEDS ORDERED: ACETAMINOPHEN325 M1 ORAL (18:31)
[2017-04-30] MEDS ORDERED: FERROUS SU220 MG/51 GT (18:31)
[2017-04-30] MEDS ORDERED: METFORMIN HCL500 M1 GT (18:31)
[2017-04-30] MEDS ORDERED: MILK OF MA400 MG/51 GT (18:31)
[2017-04-30] MEDS ORDERED: METOPROLOL TART25 MG GT (18:31)
[2017-04-30] MEDS ORDERED: BUPROPION HCL75 MG GT (18:44)
[2017-04-30] MEDS ORDERED: VALPROIC A250 MG/5 M GT (18:44)
[2017-04-30] MEDS ORDERED: FLUOROURACIL40 GM TP (18:44)
[2017-04-30 19:05] LABS: APPEARANCE,URINE CLEAR; KETONES,URINE NEGATIVE (NEGATIVE); LEUKOCYTE ESTERASE ,URINE NEGATIVE (NEGATIVE); NITRITE,URINE NEGATIVE (NEGATIVE); PH,URINE 7 (4.5-8.0); PROTEIN,URINE 1+ (NEGATIVE); UROBILINOGEN,URINE 1 MG/DL (0.0-1.0)
[2017-04-30] MEDS ORDERED: Sodium Polystyrene Sulfonate 15gm Powder ORAL ONE (19:15)
[2017-04-30 19:24] LABS: RBC,URINE 0-2 /HPF (0 - 0)
[2017-04-30 19:25] LABS: BACTERIA,URINE OCCASIONAL /HPF; WBC,URINE 0-2 /HPF (0 - 0)
--- NOTE | 2017-04-30 21:26 | Infectious Diseases Prog Note ---
Assessment/Plan Problems: (1) Sepsis Assessment & Plan: will send blood culture and start patient on cefepime and vancomycin empirically pending culture results (2) Hypotension Assessment & Plan: rule out sepsis, will send blood culture, and start wide spectrum antibiotics , continue fluids for hydration, hold blood pressure meds (3) Dehydration Assessment & Plan: continue IVF for hydration , monitor UOP (4) History of CVA (cerebrovascular accident) Assessment & Plan: stable continue meds (5) PEG (percutaneous endoscopic gastrostomy) adjustment/replacement/removal Assessment & Plan: S/P tube replacement , continue local care Subjective Allergies: Coded Allergies: AUBREY INHIBITORS (Verified Allergy, Unknown, ANGIOEDEMA, 09/17/12) Objective Vital Signs Last 24 Hour Vital Signs Date Time Temp Pulse Resp B/P Pulse Ox O2 Delivery O2 Flow Rate FiO2 04/30/17 17:44 98.3 60 16 90/54 96 Nasal Cannula 4.0 04/30/17 16:35 98.0 69 20 87/54 96 Nasal Cannula 4.0 04/30/17 16:23 98.1 62 16 110/60 98 Room Air Height (Feet): 5 Height (Inches): 9.00 Weight (Pounds): 150 Laboratory Tests Test 04/30/17 16:40 04/30/17 17:29 04/30/17 17:50 White Blood Count 6.4 K/UL (4.8-10.8) Red Blood Count 2.89 M/UL (4.70-6.10) L Hemoglobin 10.5 G/DL (14.2-18.0) L Hematocrit 30.2 % (42.0-52.0) L Mean Corpuscular Volume 104 FL (80-99) H Mean Corpuscular Hemoglobin 36.3 PG (27.0-31.0) H Mean Corpuscular Hemoglobin Concent 34.7 G/DL (32.0-36.0) Red Cell Distribution Width 13.5 % (11.6-14.8) Platelet Count 233 K/UL (150-450) Mean Platelet Volume 7.8 FL (6.5-10.1) Neutrophils (%) (Auto) 78.1 % (45.0-75.0) H Lymphocytes (%) (Auto) 11.9 % (20.0-45.0) L Monocytes (%) (Auto) 8.2 % (1.0-10.0) Eosinophils (%) (Auto) 1.2 % (0.0-3.0) Basophils (%) (Auto) 0.5 % (0.0-2.0) Sodium Level 133 mEQ/L (135-145) L Potassium Level 5.0 mEQ/L (3.4-4.9) H Chloride Level 96 mEQ/L (98-107) L Carbon Dioxide Level 29 mEQ/L (20-30) Anion Gap 8 (5-15) Blood Urea Nitrogen 31 mg/dL (7-23) H Creatinine 1.0 mg/dL (0.7-1.2) Estimat Glomerular Filtration Rate mL/min (>60) Glucose Level 89 mg/dL (74-106) Calcium Level 10.0 mg/dL (8.6-10.2) Total Bilirubin 0.3 mg/dL (0.0-1.2) Aspartate Amino Transf (AST/SGOT) 16 U/L (5-40) Alanine Aminotransferase (ALT/SGPT) 5 U/L (3-41) Alkaline Phosphatase 67 U/L (40-129) Total Creatine Kinase 55 U/L (38-174) Creatine Kinase MB 1.7 ng/mL (< 6.7) Creatine Kinase MB Relative Index 3.0 Troponin I < 0.30 ng/mL (<=0.30) Pro-B-Type Natriuretic Peptide 3514 pg/mL (0-450) H Total Protein 6.5 g/dL (6.6-8.7) L Albumin 3.4 g/dL (3.5-5.2) L Globulin 3.1 g/dL Albumin/Globulin Ratio 1.0 (1.0-2.7) Lactic Acid Level 0.90 mmol/L (0.66-2.22) Urine Color Yellow Urine Appearance Clear Urine pH 7 (4.5-8.0) Urine Specific [place] 1.005 (1.005-1.035) Urine Protein 1+ (NEGATIVE) H Urine Glucose (UA) Negative (NEGATIVE) Urine Ketones Negative (NEGATIVE) Urine Occult Blood Negative (NEGATIVE) Urine Nitrite Negative (NEGATIVE) Urine Bilirubin Negative (NEGATIVE) Urine Urobilinogen 1 MG/DL (0.0-1.0) H Urine Leukocyte Esterase Negative (NEGATIVE) Urine RBC 0-2 /HPF (0 - 0) H Urine WBC 0-2 /HPF (0 - 0) Urine Squamous Epithelial Cells None /LPF (NONE/OCC) Urine Bacteria Occasional /HPF (NONE) Current Medications Medications (Trade) Dose Ordered Sig/Yousuf Route PRN Reason Start Time Stop Time Status Last Admin Dose Admin Morphine Sulfate (Morphine Sulfate) 4 mg ONCE PRN IVP For Pain 04/30/17 18:30 04/30/17 22:30 Ondansetron HCl 4 mg 4 mg ONCE PRN IVP Nausea & Vomiting 04/30/17 18:30 04/30/17 22:30 Sodium Chloride (Sodium Chloride 1000ml bag) 1,000 ml @ 100 mls/hr Q10H IV 04/30/17 20:00 05/30/17 19:59 04/30/17 20:27 Aida Frederick M.D. Apr 30, 2017 21:26
[2017-04-30 21:30] VITALS: BP 111/83
[2017-05-01] VITALS: BP 97/55
[2017-05-01] MEDS ORDERED: Cefepime 2gm ONE (00:08)
[2017-05-01] MEDS: Cefepime HCl 2 GM in D5W 110 ML IVPB SCH ×3 (00:22→21:52)
[2017-05-01] MEDS: Vancomycin 1250mg/D5W 250ml IVPB SCH ×2 (01:20→23:26)
[2017-05-01 04:00] VITALS: BP 88/55
[2017-05-01 08:46] LABS: EOSINOPHILS % (AUTO) 3.6 % (0.0-3.0); LYMPHOCYTES % (AUTO) 19.8 % (20.0-45.0); MEAN CORPUSCULAR HEMOGLOBIN 35.1 PG (27.0-31.0); MEAN CORPUSCULAR HGB CONC 33.8 G/DL (32.0-36.0); MEAN CORPUSCULAR VOLUME 104 FL (80-99); MEAN PLATELET VOLUME 8.3 FL (6.5-10.1); MONOCYTES % (AUTO) 9.1 % (1.0-10.0); NEUTROPHILS % (AUTO) 66.5 % (45.0-75.0); PLATELET COUNT 240 K/UL (150-450); RED CELL DISTRIBUTION WIDTH 13.5 % (11.6-14.8); WHITE BLOOD COUNT 4.1 K/UL (4.8-10.8)
[2017-05-01 08:49] VITALS: BP 148/59
[2017-05-01 08:54] LABS: ALANINE AMINOTRANSFERASE 5 U/L (3-41); ANION GAP 8 (5-15); ASPARTATE AMINO TRANSFERASE 13 U/L (5-40); CALCIUM 8.7 mg/dL (8.6-10.2); CARBON DIOXIDE 28 mEQ/L (20-30); CHLORIDE 99 mEQ/L (98-107); CREATININE 0.9 mg/dL (0.7-1.2); HEMOLYSIS 5; POTASSIUM 4.2 mEQ/L (3.4-4.9); SODIUM 135 mEQ/L (135-145); TOTAL PROTEIN 5.9 g/dL (6.6-8.7)
[2017-05-01] MEDS: Vitamin A&D Oint 2oz Tube TOPIC SCH ×2 (09:14→21:51)
--- NOTE | 2017-05-01 11:48 | Diagnostic Imaging Report ---
Indication: Dyspnea Comparison: 03/18/17 A single view chest radiograph was obtained. Findings: Heart is borderline enlarged. Lung volumes are low. Pacemaker noted on the left. No infiltrate of May seen. Interposition of hepatic flexure between the diaphragm and liver noted. Bones are osteopenic. Impression: No acute disease
--- NOTE | 2017-05-01 12:09 | Diagnostic Imaging Report ---
Indication: Gastrostomy replacement Comparison: None Single view of the abdomen obtained Contrast was injected into the indwelling gastrostomy which shows opacification of the fundus of the stomach. The tube appears to be in good position. There is no leak identified. Pacemakers noted. Cardiomegaly is present. Bowel gas pattern appears nonspecific. Osteopenia noted. Impression: Gastrostomy check. Catheter in good position. No leak
[2017-05-01 12:59] VITALS: BP 101/54
--- NOTE | 2017-05-01 13:45 | Consultation ---
DATE OF CONSULTATION: INFECTIOUS DISEASE CONSULTATION REQUESTING PHYSICIAN: Laina Pereira M.D. REASON FOR CONSULTATION: Hypotension, sepsis, and PEG tube site cellulitis. Recommendation for antibiotics treatment. HISTORY OF PRESENT ILLNESS: The patient is a 76-year-old male, well known to our service with history of diabetes, COPD, CVA, who was [facility] for [facility] after he pulled it at the [facility]. The patient had his PEG tube replaced in the emergency room, but he was found to be hypotensive with no evidence of fever or chills, cough or shortness of breath or any other symptoms. The patient was admitted to the hospital for evaluation of his hypotension and to rule out sepsis. He has also mild inflammation around the G-tube site and I was asked by the primary provider for antibiotics treatment for possible sepsis and G-tube site cellulitis. As of note, the patient is poor historian, history was mainly obtained from the [facility], medical records, and the nursing staff. REVIEW OF SYSTEMS: Unable to obtain. The patient is poor historian. PAST MEDICAL HISTORY: Significant for diabetes, COPD, CVA, cardiac arrhythmia, status post pacemaker placement. PAST SURGICAL HISTORY: Pacemaker placement. SOCIAL HISTORY: The patient lives at the [facility]. No recent drugs, tobacco or alcohol. FAMILY HISTORY: Not contributory. ALLERGIES: He is allergic to AUBREY inhibitors. MEDICATIONS: He was started on Zofran, morphine, Kayexalate and normal saline. LABORATORY AND DIAGNOSTIC DATA: Laboratory showed white count of 6.4, hemoglobin of 10.5, and platelet count of 233,000. BUN of 31, creatinine of 1. Urinalysis showed negative leukocyte esterase, occasional bacteria, and WBC 0 to 2. Imaging, none done. PHYSICAL EXAMINATION: VITAL SIGNS: Temperature 98.3, pulse 60, respirations 16, blood pressure 123/64 and saturation 96% on 4 liters nasal cannula. GENERAL: This is an elderly male, lying in bed, awake, alert, not in distress. HEENT: Normocephalic and atraumatic. Pupils are reactive to light. Dry oral mucosa. No exudate. NECK: Supple. No lymphadenopathy. CARDIOVASCULAR: Regular rate and rhythm. No murmur. LUNGS: He has diminished breathing sounds at the bases. No wheezing or rhonchi. ABDOMEN: Soft, nontender, and nondistended. G-tube site with mild erythema around it. There was no drainage or pus. EXTREMITIES: No edema or cyanosis. ASSESSMENT AND RECOMMENDATION: 1. Sepsis with hypotension. We will send blood culture and start the patient on cefepime and vancomycin empiric treatment. Pending culture results. 2. Hypotension, rule out sepsis. We will send blood culture and start wide-spectrum antibiotics. Continue fluids for hydration, hold blood pressure medications. 3. Dehydration. Continue intravenous fluids. Monitor urine output. 4. History of cerebrovascular accident, stable. Continue medications. 5. Percutaneous endoscopic gastrostomy tube replacement, status post pulling out by the patient. Continue local care and antibiotics as needed. Aida Frederick M.D. DR: VINCE JOB#: [id number] CC: SANDEEP
--- NOTE | 2017-05-01 15:17 | Infectious Diseases Prog Note ---
Assessment/Plan Problems: (1) Sepsis Assessment & Plan: await blood culture and continue cefepime and vancomycin empirically pending culture results (2) Hypotension Assessment & Plan: rule out sepsis, await blood culture, and continue wide spectrum antibiotics , continue fluids for hydration, hold blood pressure meds (3) Dehydration Assessment & Plan: continue IVF for hydration , monitor UOP (4) History of CVA (cerebrovascular accident) Assessment & Plan: stable continue meds (5) PEG (percutaneous endoscopic gastrostomy) adjustment/replacement/removal Assessment & Plan: S/P tube replacement , continue local care Subjective Constitutional: Reports: no symptoms HEENT: Reports: no symptoms Respiratory: Reports: no symptoms Breasts: Reports: no symptoms Cardiovascular: Reports: no symptoms Gastrointestinal/Abdominal: Reports: no symptoms Genitourinary: Reports: no symptoms Neurologic: Reports: no symptoms Psychiatric: Reports: no symptoms Skin: Reports: no symptoms Allergies: Coded Allergies: AUBREY INHIBITORS (Verified Allergy, Unknown, ANGIOEDEMA, 09/17/12) Objective Vital Signs Last 24 Hour Vital Signs Date Time Temp Pulse Resp B/P Pulse Ox O2 Delivery O2 Flow Rate FiO2 05/01/17 12:59 97.9 57 14 101/54 99 Nasal Cannula 05/01/17 08:49 97.3 60 14 148/59 99 Room Air 05/01/17 04:00 97.0 60 20 88/55 95 Nasal Cannula 2.0 05/01/17 00:00 97.3 60 20 97/55 99 Nasal Cannula 2.0 04/30/17 21:30 96.6 59 20 111/83 95 Nasal Cannula 2.0 04/30/17 21:06 60 18 110/63 92 Nasal Cannula 2.0 04/30/17 17:44 98.3 60 16 90/54 96 Nasal Cannula 4.0 04/30/17 16:35 98.0 69 20 87/54 96 Nasal Cannula 4.0 04/30/17 16:23 98.1 62 16 110/60 98 Room Air Height (Feet): 5 Height (Inches): 8.00 Weight (Pounds): 150 General Appearance: WD/WN, no acute distress HEENT: normocephalic, atraumatic, anicteric, mucous membranes moist Respiratory/Chest: chest wall non-tender, lungs clear, normal breath sounds, no respiratory distress, no accessory muscle use Cardiovascular: normal peripheral pulses, normal rate, regular rhythm, regularly irregular, no gallop/murmur Abdomen: normal bowel sounds, soft, non tender, no organomegaly, non distended , no mass Extremities: no cyanosis, no clubbing Skin: no rash Laboratory Tests Test 04/30/17 16:40 04/30/17 17:29 04/30/17 17:50 05/01/17 07:25 White Blood Count 6.4 K/UL (4.8-10.8) 4.1 K/UL (4.8-10.8) L Red Blood Count 2.89 M/UL (4.70-6.10) L 3.00 M/UL (4.70-6.10) L Hemoglobin 10.5 G/DL (14.2-18.0) L 10.5 G/DL (14.2-18.0) L Hematocrit 30.2 % (42.0-52.0) L 31.1 % (42.0-52.0) L Mean Corpuscular Volume 104 FL (80-99) H 104 FL (80-99) H Mean Corpuscular Hemoglobin 36.3 PG (27.0-31.0) H 35.1 PG (27.0-31.0) H Mean Corpuscular Hemoglobin Concent 34.7 G/DL (32.0-36.0) 33.8 G/DL (32.0-36.0) Red Cell Distribution Width 13.5 % (11.6-14.8) 13.5 % (11.6-14.8) Platelet Count 233 K/UL (150-450) 240 K/UL (150-450) Mean Platelet Volume 7.8 FL (6.5-10.1) 8.3 FL (6.5-10.1) Neutrophils (%) (Auto) 78.1 % (45.0-75.0) H 66.5 % (45.0-75.0) Lymphocytes (%) (Auto) 11.9 % (20.0-45.0) L 19.8 % (20.0-45.0) L Monocytes (%) (Auto) 8.2 % (1.0-10.0) 9.1 % (1.0-10.0) Eosinophils (%) (Auto) 1.2 % (0.0-3.0) 3.6 % (0.0-3.0) H Basophils (%) (Auto) 0.5 % (0.0-2.0) 1.0 % (0.0-2.0) Sodium Level 133 mEQ/L (135-145) L 135 mEQ/L (135-145) Potassium Level 5.0 mEQ/L (3.4-4.9) H 4.2 mEQ/L (3.4-4.9) Chloride Level 96 mEQ/L (98-107) L 99 mEQ/L (98-107) Carbon Dioxide Level 29 mEQ/L (20-30) 28 mEQ/L (20-30) Anion Gap 8 (5-15) 8 (5-15) Blood Urea Nitrogen 31 mg/dL (7-23) H 26 mg/dL (7-23) H Creatinine 1.0 mg/dL (0.7-1.2) 0.9 mg/dL (0.7-1.2) Estimat Glomerular Filtration Rate mL/min (>60) mL/min (>60) Glucose Level 89 mg/dL (74-106) 66 mg/dL (74-106) L Calcium Level 10.0 mg/dL (8.6-10.2) 8.7 mg/dL (8.6-10.2) Total Bilirubin 0.3 mg/dL (0.0-1.2) 0.3 mg/dL (0.0-1.2) Aspartate Amino Transf (AST/SGOT) 16 U/L (5-40) 13 U/L (5-40) Alanine Aminotransferase (ALT/SGPT) 5 U/L (3-41) 5 U/L (3-41) Alkaline Phosphatase 67 U/L (40-129) 55 U/L (40-129) Total Creatine Kinase 55 U/L (38-174) Creatine Kinase MB 1.7 ng/mL (< 6.7) Creatine Kinase MB Relative Index 3.0 Troponin I < 0.30 ng/mL (<=0.30) Pro-B-Type Natriuretic Peptide 3514 pg/mL (0-450) H Total Protein 6.5 g/dL (6.6-8.7) L 5.9 g/dL (6.6-8.7) L Albumin 3.4 g/dL (3.5-5.2) L 3.0 g/dL (3.5-5.2) L Globulin 3.1 g/dL 2.9 g/dL Albumin/Globulin Ratio 1.0 (1.0-2.7) 1.0 (1.0-2.7) Lactic Acid Level 0.90 mmol/L (0.66-2.22) Urine Color Yellow Urine Appearance Clear Urine pH 7 (4.5-8.0) Urine Specific [place] 1.005 (1.005-1.035) Urine Protein 1+ (NEGATIVE) H Urine Glucose (UA) Negative (NEGATIVE) Urine Ketones Negative (NEGATIVE) Urine Occult Blood Negative (NEGATIVE) Urine Nitrite Negative (NEGATIVE) Urine Bilirubin Negative (NEGATIVE) Urine Urobilinogen 1 MG/DL (0.0-1.0) H Urine Leukocyte Esterase Negative (NEGATIVE) Urine RBC 0-2 /HPF (0 - 0) H Urine WBC 0-2 /HPF (0 - 0) Urine Squamous Epithelial Cells None /LPF (NONE/OCC) Urine Bacteria Occasional /HPF (NONE) Current Medications Medications (Trade) Dose Ordered Sig/Yousuf Route PRN Reason Start Time Stop Time Status Last Admin Dose Admin Cefepime HCl 2 gm/ Dextrose 110 ml @ 220 mls/hr Q12HR@1000,2200 IVPB 04/30/17 22:00 05/07/17 21:59 05/01/17 09:47 Sodium Chloride (Sodium Chloride 1000ml bag) 1,000 ml @ 75 mls/hr [id number] IV 05/01/17 02:00 05/31/17 01:59 05/01/17 03:56 Vancomycin HCl 1 ea 1 ea DAILY PRN MISC Per rx protocol 04/30/17 21:30 05/30/17 21:29 Vancomycin HCl/ Dextrose 250 ml @ 166.667 mls/hr Q24H IVPB 04/30/17 23:00 05/05/17 22:59 05/01/17 01:20 Vitamin A/Vitamin D (A & D Oint) 1 applic EVERY 12 HOURS TOPIC 05/01/17 09:00 05/31/17 08:59 05/01/17 09:14 Aida Frederick M.D. May 01, 2017 15:17
[2017-05-01 16:27] VITALS: BP 128/68
[2017-05-01] MEDS ORDERED: Milk of Magnesia 30ml Ud GT PRN (16:30)
[2017-05-01] MEDS: metFORMIN 500mg tab GT SCH (18:34)
[2017-05-01] MEDS: Metoprolol 25mg tab GT SCH (18:35)
[2017-05-01] MEDS: BuPROPion 75mg Tab GT SCH (18:48)
[2017-05-01 20:00] VITALS: BP 117/72
[2017-05-01] MEDS: Eliquis 2.5mg tablet GT SCH (21:50)
[2017-05-01] MEDS: Valproic Acid 250mg/5ml Liquid GT SCH (21:50)
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
[2017-05-01] MEDS ORDERED: D5W 275ml ONE (22:50)
[2017-05-01] MEDS ORDERED: Tubing IV Secondary IV ONE (22:50)
[2017-05-02] VITALS: BP 121/68
--- NOTE | 2017-05-02 01:00 | Consultation ---
DATE OF CONSULTATION: 05/01/2017 HEMATOLOGY/ONCOLOGY CONSULTATION CONSULTING PHYSICIAN: Jax Alcaraz M.D. REQUESTING PHYSICIAN: Laina Pereira M.D. REASON FOR CONSULTATION: Evaluation of leukopenia and anemia. IDENTIFYING DATA: Dear Dr. Laina Pereira, The patient is a pleasant 76-year-old male, who I was asked to evaluate multiple times before with past medical history significant for COPD, CVA, and diabetes mellitus, who was sent from [facility] who is status post G-tube placement. from the ER, found to be hypertensive. Denies any fever, chills, cough, or shortness of breath. GI service was consulted. Mild inflammation around the G-tube site, asked by the primary provider for evaluation of antibiotics, placed on cefepime. PAST MEDICAL HISTORY: As noted above. COPD, CVA, cardiac arrhythmia, and pacemaker placement. PAST SURGICAL HISTORY: Pacemaker placement. ALLERGIES: AUBREY inhibitor. MEDICATIONS: Zofran, morphine, Kayexalate, normal saline. SOCIAL HISTORY: Lives in a custodial. No alcohol, tobacco, or illicit drug use. FAMILY HISTORY: Noncontributory. REVIEW OF SYSTEMS: Difficult to obtain, poor historian. PHYSICAL EXAMINATION: VITAL SIGNS: Temperature 97 degrees Fahrenheit, pulse 76, respiratory rate 12, blood pressure 128/68, and O2 saturation 93% on room air. GENERAL: No acute distress. PULMONARY: Decreased breath sounds. CARDIOVASCULAR: Regular rate. No S3 or S4. ABDOMEN: Soft, nontender, and nondistended. Status post PEG tube. EXTREMITIES: There is 1+ edema. LABORATORY DATA: WBC 6.4, hemoglobin of 10.5, hematocrit 30, and platelet count of 233,000. BUN of 31 and creatinine of 1. ASSESSMENT AND PLAN: 1. Anemia secondary to chronic disease. Anemia workup completed in the past. Continue to monitor. Hemoglobin goal of greater than 7. 2. Leukopenia secondary to infectious process. 3. Lymphopenia. Continue to closely monitor. 4. Uremia, potentially secondary to dehydration. 5. Hypoalbuminemia secondary to malnutrition. 6. Infection on the gastrostomy tube site and sepsis, is on broad-spectrum antibiotics. 7. Dehydration. Monitor urine output. 8. IV fluids. 9. Percutaneous endoscopic gastrostomy tube replacement. 10. History of cerebrovascular accident, stable. 11. Gastrostomy and GI catheter in good position. 12. Discussed with staff. Jax Alcaraz M.D. DR: KRYSTAL JOB#: [id number] CC:
[2017-05-02 04:00] VITALS: BP 132/74
[2017-05-02] MEDS: Valproic Acid 250mg/5ml Liquid GT SCH ×3 (06:25→21:23)
[2017-05-02 08:00] VITALS: BP 126/63
--- NOTE | 2017-05-02 08:00 | History and Physical Report ---
DATE OF ADMISSION: 04/30/2017 HISTORY OF PRESENT ILLNESS: The patient . The patient is a poor historian, has psychosis and schizophrenia and cannot rely upon his history. The patient is admitted for hypotension and dehydration. The patient has also a G-tube, changed by the ER doctor. Again, cannot get any reliable history from the patient. PAST MEDICAL HISTORY: History of head and neck cancer, history of dysphagia, history of hypertension, history of thyroid mass of unclear etiology, history of , history of sinusitis, history of ileus, history of iron deficiency anemia, anxiety, mood disorder, history of schizophrenia, history of BPH, history of constipation, history of NIDDM, history of COPD, and arrhythmia. PAST SURGICAL HISTORY: Removal of head and neck tumor, history of trach, and PEG. MEDICATIONS: Amiodarone, amlodipine, Eliquis, bisacodyl, , clonidine, Nexium, ferrous sulfate, finasteride, furosemide, metformin, metoprolol, calcium, and Depakote. ALLERGIES: Zan inhibitor. SOCIAL HISTORY: Denies alcohol or drug use. Lives in [facility]. FAMILY HISTORY: Noncontributory. REVIEW OF SYSTEMS: HEENT: Denies headaches. Respiratory: Denies shortness of breath. Denies cough. Cardiovascular: Denies chest pain. Gastrointestinal: Denies nausea, vomiting, or diarrhea. Extremities: Denies pain in the lower extremities. Central Nervous System: No change in vision or speech pattern, however, the patient is a poor historian. PHYSICAL EXAMINATION: VITAL SIGNS: Temperature is 97 degrees, pulse 60, and blood pressure 188/55. HEENT: PERRLA. NECK: Supple. No lymphadenopathy. CHEST: Clear to auscultation. GASTROINTESTINAL: Soft, nontender, and nondistended. No organomegaly. EXTREMITIES: No edema. weakness, which is chronic . LABORATORY DATA: WBC of 6.4, hemoglobin 10.5, and platelets of 233,000. Sodium 133, potassium 5, BUN of 31, and creatinine of 1. Glucose elevated . ASSESSMENT AND PLAN: 1. Hypotension. 2. Dehydration. 3. Gastrostomy tube, which was changed by the ER doctor. I have asked Dr. Goetz, Dr. Huber, as well as Dr. Frederick to see the patient for the above-mentioned diagnoses and treatment and to rule out UTI. Laina Pereira M.D. DR: YENI JOB#: [id number] CC:
[2017-05-02] MEDS: metFORMIN 500mg tab GT SCH ×2 (09:00→19:11)
[2017-05-02] MEDS: Ferrous Sulfate 300 MG/5 ML UDC GT SCH (09:00)
[2017-05-02] MEDS: Vitamin A&D Oint 2oz Tube TOPIC SCH ×2 (10:12→21:22)
[2017-05-02] MEDS: Amiodarone 200mg tab GT SCH (10:13)
[2017-05-02] MEDS: Eliquis 2.5mg tablet GT SCH ×2 (10:13→19:11)
[2017-05-02] MEDS: Metoprolol 25mg tab GT SCH ×2 (10:13→19:11)
[2017-05-02] MEDS: BuPROPion 75mg Tab GT SCH ×2 (10:13→19:12)
[2017-05-02] MEDS: Multivitamins W/Minerals 15 ML UDC GT SCH (10:14)
[2017-05-02 12:00] VITALS: BP 129/65
--- NOTE | 2017-05-02 12:53 | Diagnostic Imaging Report ---
APPROVED REPORT CPT Code: 79035 Present Symptoms Shortness of breath RIGHT LEG: Venous imaging reveals a patent deep venous system. Imaging also reveals chronic thrombus in the superficial femoral and popliteal veins. Large collateral vein noted anterior to the superficial femoral artery and inferior to the popliteal artery. Remainder of the deep venous system within normal limits. No evidence of thrombus in the calf veins. Greater saphenous vein also within normal limits. LEFT LEG: Venous imaging reveals a patent deep venous system. There is no evidence of thrombus within the femoral, popliteal or tibial segments. The greater saphenous vein is also within normal limits. Doppler indicates normal spontaneous flow within these segments. There is no evidence of acute deep vein thrombosis.
[2017-05-02] MEDS: Cefepime HCl 2 GM in D5W 110 ML IVPB SCH ×2 (13:36→21:23)
--- NOTE | 2017-05-02 15:13 | Infectious Diseases Prog Note ---
Assessment/Plan Problems: (1) Sepsis Assessment & Plan: await blood culture and continue cefepime and vancomycin empirically pending culture results (2) Hypotension Assessment & Plan: rule out sepsis, await blood culture, and continue wide spectrum antibiotics , continue fluids for hydration, hold blood pressure meds (3) Dehydration Assessment & Plan: continue IVF for hydration , monitor UOP (4) History of CVA (cerebrovascular accident) Assessment & Plan: stable continue meds (5) PEG (percutaneous endoscopic gastrostomy) adjustment/replacement/removal Assessment & Plan: S/P tube replacement , continue local care Subjective Constitutional: Reports: no symptoms HEENT: Reports: no symptoms Respiratory: Reports: no symptoms Breasts: Reports: no symptoms Cardiovascular: Reports: no symptoms Gastrointestinal/Abdominal: Reports: no symptoms Genitourinary: Reports: no symptoms Neurologic: Reports: no symptoms Psychiatric: Reports: no symptoms Skin: Reports: no symptoms Endocrine: Reports: no symptoms Hematologic: Reports: no symptoms Allergies: Coded Allergies: AUBREY INHIBITORS (Verified Allergy, Unknown, ANGIOEDEMA, 09/17/12) Objective Vital Signs Last 24 Hour Vital Signs Date Time Temp Pulse Resp B/P Pulse Ox O2 Delivery O2 Flow Rate FiO2 05/02/17 12:00 98.0 64 18 129/65 97 Nasal Cannula 98.0 05/02/17 10:14 126/63 05/02/17 10:14 60 126/63 05/02/17 10:13 60 126/63 05/02/17 08:00 97.5 57 18 126/63 98 Nasal Cannula 3.0 05/02/17 04:00 97.4 59 18 132/74 100 Room Air 05/02/17 00:00 97.3 60 17 121/68 97 Room Air 05/01/17 20:00 97.0 60 18 117/72 97 Room Air 05/01/17 18:35 76 128/68 05/01/17 16:27 97.0 76 14 128/68 92 Room Air Height (Feet): 5 Height (Inches): 8.00 Weight (Pounds): 150 General Appearance: WD/WN, no acute distress HEENT: normocephalic, atraumatic, anicteric, mucous membranes moist Respiratory/Chest: chest wall non-tender, lungs clear, normal breath sounds, no respiratory distress, no accessory muscle use Cardiovascular: normal peripheral pulses, normal rate, regular rhythm, no gallop/murmur, no JVD Abdomen: normal bowel sounds, soft, non tender, no organomegaly, non distended , no mass, no scars Extremities: no cyanosis, no clubbing Skin: no rash, other - redness around G tube site Lymphatic: no neck adenopathy, no groin adenopathy Microbiology Date/Time Source Procedure Growth Status 04/30/17 17:29 Blood Blood Culture - Preliminary NO GROWTH AFTER 24 HOURS Resulted 04/30/17 17:00 Blood Blood Culture - Preliminary NO GROWTH AFTER 24 HOURS Resulted Current Medications Medications (Trade) Dose Ordered Sig/Yousuf Route PRN Reason Start Time Stop Time Status Last Admin Dose Admin Acetaminophen (Tylenol) 325 mg Q4H PRN ORAL FEVER >101F, NTE 3GM/24HR 05/01/17 16:30 05/31/17 16:29 Acetaminophen (Tylenol) 650 mg Q4H PRN ORAL MILD PAIN, NTE 3GM/24HR 05/01/17 16:30 05/31/17 16:29 Amiodarone HCl (Cordarone) 100 mg DAILY GT 05/02/17 09:00 06/01/17 08:59 05/02/17 10:13 Amlodipine Besylate (Norvasc) 5 mg DAILY GT 05/02/17 09:00 06/01/17 08:59 05/02/17 10:14 Apixaban (Eliquis) 2.5 mg BID GT 05/01/17 20:00 05/31/17 19:59 05/02/17 10:13 Bisacodyl (Dulcolax) 10 mg DAILYPRN PRN RECTAL MOM IS INEFFECTIVE FOR CONSTIP 05/01/17 16:30 05/31/17 16:29 Bupropion HCl (Wellbutrin) 75 mg BID GT 05/01/17 18:00 05/31/17 17:59 05/02/17 10:13 Cefepime HCl 2 gm/ Dextrose 110 ml @ 220 mls/hr Q12HR@1000,2200 IVPB 04/30/17 22:00 05/07/17 21:59 05/02/17 13:36 Clonidine HCl (Catapres) 0.1 mg DAILY GT 05/02/17 09:00 06/01/17 08:59 05/02/17 10:14 Clonidine HCl (Catapres) 0.1 mg Q6H PRN GT FOR SBP >160 05/01/17 16:30 05/31/17 16:29 Clotrimazole (Lotrimin) 1 applic EVERY 12 HOURS TOPIC 05/02/17 09:00 06/01/17 08:59 05/02/17 10:12 Ferrous Sulfate (Feosol) 300 mg DAILY GT 05/02/17 09:00 06/01/17 08:59 05/02/17 09:00 Finasteride (Proscar) 5 mg DAILY GT 05/02/17 09:00 06/01/17 08:59 05/02/17 10:15 Furosemide (Lasix) 20 mg DAILY GT 05/02/17 09:00 06/01/17 08:59 05/02/17 10:14 Lansoprazole (Prevacid) 30 mg DAILY GT 05/02/17 09:00 06/01/17 08:59 05/02/17 10:14 Magnesium Hydroxide (Mom) 30 ml DAILY PRN GT Constipation 05/01/17 16:30 05/31/17 16:29 Metformin HCl (Glucophage) 500 mg TWICE A DAY GT 05/01/17 18:00 05/31/17 17:59 05/02/17 09:00 Metoprolol Tartrate (Lopressor) 12.5 mg BID GT 05/01/17 18:00 05/31/17 17:59 05/02/17 10:13 Multivitamins (Multivitamins W/ Minerals 15ml Liquid) 15 ml DAILY GT 05/02/17 09:00 06/01/17 08:59 05/02/17 10:14 Sodium Chloride (Sodium Chloride 1000ml bag) 1,000 ml @ 75 mls/hr [id number] IV 05/01/17 02:00 05/31/17 01:59 05/02/17 04:35 Valproic Acid (Depakene) 250 mg Q8HR GT 05/01/17 22:00 05/31/17 21:59 05/02/17 13:43 Vancomycin HCl 1 ea 1 ea DAILY PRN MISC Per rx protocol 04/30/17 21:30 05/30/17 21:29 Vancomycin HCl/ Dextrose 250 ml @ 166.667 mls/hr Q24H IVPB 04/30/17 23:00 05/05/17 22:59 05/01/17 23:26 Vitamin A/Vitamin D (A & D Oint) 1 applic EVERY 12 HOURS TOPIC 05/01/17 09:00 05/31/17 08:59 05/02/17 10:12 Aida Frederick M.D. May 02, 2017 15:13
--- NOTE | 2017-05-02 15:30 | Consultation ---
DATE OF CONSULTATION: NOTE: POOR AUDIO QUALITY CHIEF COMPLAINT: . HISTORY OF PRESENT ILLNESS: The patient is a 76-year-old male . . Chem-7 is normal. . . PLAN: Continue on . . I want to thank, Dr. Laina Pereira, for this kind referral. Mg Goetz M.D. DR: VANESSA JOB#: [id number] CC:
[2017-05-02 16:21] VITALS: BP 114/70
--- NOTE | 2017-05-02 18:07 | General Progress Note ---
Assessment/Plan Status: stable Assessment/Plan afebrile vitals stable hypotension resolved no acute events exchange of peg Subjective ROS Limited/Unobtainable: Yes Allergies: Coded Allergies: AUBREY INHIBITORS (Verified Allergy, Unknown, ANGIOEDEMA, 09/17/12) Objective Last 24 Hour Vital Signs Date Time Temp Pulse Resp B/P Pulse Ox O2 Delivery O2 Flow Rate FiO2 05/02/17 16:21 97.0 61 15 114/70 96 Room Air 05/02/17 12:00 98.0 64 18 129/65 97 Nasal Cannula 98.0 05/02/17 10:14 126/63 05/02/17 10:14 60 126/63 05/02/17 10:13 60 126/63 05/02/17 08:00 97.5 57 18 126/63 98 Nasal Cannula 3.0 05/02/17 04:00 97.4 59 18 132/74 100 Room Air 05/02/17 00:00 97.3 60 17 121/68 97 Room Air 05/01/17 20:00 97.0 60 18 117/72 97 Room Air 05/01/17 18:35 76 128/68 Intake and Output 05/01/17 05/02/17 19:00 07:00 Intake Total 985 ml 1175.000 ml Output Total 800 ml 930 ml Balance 185 ml 245.000 ml Free Water 30 ml 60 ml IV Total 900 ml 510.000 ml Tube Feeding 55 ml 605 ml Output Urine Total 800 ml 930 ml # Voids 2 Height (Feet): 5 Height (Inches): 8.00 Weight (Pounds): 150 Neck: normal inspection Cardiovascular: normal rate Respiratory/Chest: normal breath sounds Abdomen: soft Laina Pereira MD May 02, 2017 18:07
[2017-05-02 20:00] VITALS: BP 107/64
[2017-05-02] MEDS: Vancomycin 1250mg/D5W 250ml IVPB SCH (23:22)
[2017-05-03] VITALS: BP 111/67
[2017-05-03 04:00] VITALS: BP 108/67
[2017-05-03] MEDS: Valproic Acid 250mg/5ml Liquid GT SCH ×3 (05:41→21:12)
[2017-05-03 08:38] VITALS: BP 106/57
[2017-05-03] MEDS: Amiodarone 200mg tab GT SCH (09:00)
[2017-05-03] MEDS: Metoprolol 25mg tab GT SCH ×2 (09:00→17:33)
--- NOTE | 2017-05-03 09:36 | General Progress Note ---
Assessment/Plan Problem List: (1) H/O tracheostomy ICD Codes: Z93.0 - H/O tracheostomy SNOMED: 276879607 (2) Hypothyroidism ICD Codes: E03.9 - Hypothyroidism, unspecified SNOMED: 14000548 (3) HTN (hypertension) ICD Codes: I10 - HTN (hypertension) SNOMED: 28440749 (4) Diabetes ICD Codes: E11.9 - Diabetes SNOMED: 84541981 (5) Malfunction of gastrostomy tube ICD Codes: K94.23 - Gastrostomy malfunction SNOMED: 692808464 Assessment/Plan GTF GT care anemia work up fu Subjective ROS Limited/Unobtainable: No Allergies: Coded Allergies: AUBREY INHIBITORS (Verified Allergy, Unknown, ANGIOEDEMA, 09/17/12) Objective Last 24 Hour Vital Signs Date Time Temp Pulse Resp B/P Pulse Ox O2 Delivery O2 Flow Rate FiO2 05/03/17 09:00 61 106/57 05/03/17 09:00 106/57 05/03/17 09:00 61 106/57 05/03/17 08:38 98.4 61 20 106/57 96 Nasal Cannula 2.0 05/03/17 04:00 97.8 60 20 108/67 96 Room Air 05/03/17 00:00 98.1 62 20 111/67 98 Nasal Cannula 2.0 05/02/17 20:00 98.2 60 20 107/64 97 Nasal Cannula 2.0 05/02/17 19:11 61 114/70 05/02/17 16:21 97.0 61 15 114/70 96 Room Air 05/02/17 12:00 98.0 64 18 129/65 97 Nasal Cannula 98.0 05/02/17 10:14 126/63 05/02/17 10:14 60 126/63 05/02/17 10:13 60 126/63 Intake and Output 05/02/17 05/03/17 19:00 07:00 Intake Total 270 ml 1343.334 ml Output Total 400 ml 700 ml Balance -130 ml 643.334 ml Free Water 30 ml 100 ml IV Total 185 ml 968.334 ml Tube Feeding 55 ml 275 ml Output Urine Total 400 ml 700 ml Height (Feet): 5 Height (Inches): 8.00 Weight (Pounds): 150 General Appearance: no apparent distress EENT: normal ENT inspection Neck: supple Cardiovascular: normal rate Respiratory/Chest: decreased breath sounds Abdomen: normal bowel sounds, non tender, soft Extremities: non-tender SHORTY DAVILA May 03, 2017 09:36
[2017-05-03] MEDS: Ferrous Sulfate 300 MG/5 ML UDC GT SCH (09:37)
[2017-05-03] MEDS: Multivitamins W/Minerals 15 ML UDC GT SCH (09:37)
[2017-05-03] MEDS: metFORMIN 500mg tab GT SCH ×2 (09:37→17:33)
[2017-05-03] MEDS: BuPROPion 75mg Tab GT SCH ×2 (09:37→17:33)
[2017-05-03] MEDS: Vitamin A&D Oint 2oz Tube TOPIC SCH ×2 (09:38→21:12)
[2017-05-03] MEDS: Eliquis 2.5mg tablet GT SCH ×2 (09:38→17:33)
[2017-05-03] MEDS: Cefepime HCl 2 GM in D5W 110 ML IVPB SCH (10:21)
--- NOTE | 2017-05-03 11:30 | Consultation ---
DATE OF CONSULTATION: 05/02/2017 CHIEF COMPLAINT: Malfunctioning G-tube. HISTORY OF PRESENT ILLNESS: This is a very pleasant 76-year-old male, admitted to the hospital. In the ER, the patient had a malfunctioning of G-tube, was changed by the ER doctor. GI evaluation was requested for evaluation of G-tube functioning and feeding. PAST MEDICAL HISTORY: 1. COPD. 2. CVA. 3. Cardiac arrhythmia. 4. History of pacemaker placement. PAST SURGICAL HISTORY: Pacemaker placement. MEDICATIONS: Please see medication reconciliation list. ALLERGIES: AUBREY inhibitors. FAMILY HISTORY: Noncontributory. SOCIAL HISTORY: The patient currently lives in the assisted. No recent history of tobacco, alcohol, or illicit drug abuse. REVIEW OF SYSTEMS: Limited. PHYSICAL EXAMINATION: VITAL SIGNS: Blood pressure is 106/67, pulse 61, respirations 20, and temperature 98.4 degrees. HEENT: Normocephalic and atraumatic. Sclerae anicteric. NECK: Supple. No lymphadenopathy. CARDIOVASCULAR: Regular rate and rhythm. Plus S1 and S2. LUNGS: Decreased breath sounds bilaterally. ABDOMEN: Soft and nontender. G-tube in place. No rebound. No guarding. No peritoneal signs. EXTREMITIES: No cyanosis. No clubbing. No edema. LABORATORY DATA: White count , hemoglobin 10.5, hematocrit 31, and platelets are 240,000. ASSESSMENT: 1. G-tube malfunctioning, which is replaced. 2. Anemia, most probably chronic. We will do anemia workup. 3. Dementia. PLAN: Start tube feeding. G-tube every six hours. Local G-tube care. at this time. I want to thank, Dr. Pereira, for this kind referral. Mg Goetz M.D. DR: TAMI JOB#: [id number] CC: Laina Pereira M.D.; Fax#: [phone]
[2017-05-03 12:05] VITALS: BP 110/60
--- NOTE | 2017-05-03 15:52 | General Progress Note ---
Assessment/Plan Assessment/Plan ASSESSMENT AND RECS: 1. Anemia secondary to chronic disease. Anemia workup completed in the past. Continue to monitor. Hemoglobin goal of greater than 7. 2. Leukopenia secondary to infectious process. 3. Lymphopenia. Continue to closely monitor. 4. Uremia, potentially secondary to dehydration. 5. Hypoalbuminemia secondary to malnutrition. 6. Infection on the gastrostomy tube site and sepsis, is on broad-spectrum antibiotics. 7. Dehydration. Monitor urine output on IV fluids. 8. Percutaneous endoscopic gastrostomy tube replacement. 9. History of cerebrovascular accident, stable. 10. Gastrostomy and GI catheter in good position. Subjective Constitutional: Denies: chills, diaphoresis, fever, malaise, no symptoms, other , weakness HEENT: Denies: blurred vision, double vision, ear discharge, ear pain, eye pain , mouth pain, mouth swelling, no symptoms, nose congestion, nose pain, other, tearing, throat pain, throat swelling Cardiovascular: Denies: chest pain, edema, irregular heart rate, lightheadedness, no symptoms, other, palpitations, syncope Respiratory: Denies: SOB at rest, SOB with excertion, cough, no symptoms, orthopnea, other, shortness of breath, sputum, stridor, wheezing Gastrointestinal/Abdominal: Denies: abdomen distended, abdominal pain, black stools, blood in stool, constipated, diarrhea, difficulty swallowing, nausea, no symptoms, other, poor appetite, poor fluid intake, rectal bleeding, tarry stools, vomiting Genitourinary: Denies: burning, discharge, flank pain, frequency, hematuria, incontinence, no symptoms, other, pain, urgency Neurologic/Psychiatric: Denies: anxiety, depressed, emotional problems, headache, no symptoms, numbness, other, paresthesia, pre-existing deficit, seizure, tingling, tremors, weakness Endocrine: Denies: excessive sweating, flushing, increased hunger, increased thirst, increased urine, intolerance to cold, intolerance to heat, no symptoms, other, unexplained weight gain, unexplained weight loss Allergies: Coded Allergies: AUBREY INHIBITORS (Verified Allergy, Unknown, ANGIOEDEMA, 09/17/12) Subjective on peg tube feedings Objective Last 24 Hour Vital Signs Date Time Temp Pulse Resp B/P Pulse Ox O2 Delivery O2 Flow Rate FiO2 05/03/17 12:05 98.0 65 20 110/60 96 Nasal Cannula 2.0 05/03/17 09:00 61 106/57 05/03/17 09:00 106/57 05/03/17 09:00 61 106/57 05/03/17 08:38 98.4 61 20 106/57 96 Nasal Cannula 2.0 05/03/17 04:00 97.8 60 20 108/67 96 Room Air 05/03/17 00:00 98.1 62 20 111/67 98 Nasal Cannula 2.0 05/02/17 20:00 98.2 60 20 107/64 97 Nasal Cannula 2.0 05/02/17 19:11 61 114/70 05/02/17 16:21 97.0 61 15 114/70 96 Room Air Intake and Output 05/02/17 05/03/17 19:00 07:00 Intake Total 270 ml 1498.334 ml Output Total 400 ml 700 ml Balance -130 ml 798.334 ml Free Water 30 ml 200 ml IV Total 185 ml 968.334 ml Tube Feeding 55 ml 330 ml Output Urine Total 400 ml 700 ml Height (Feet): 5 Height (Inches): 8.00 Weight (Pounds): 150 General Appearance: no apparent distress EENT: normal ENT inspection Neck: supple Cardiovascular: normal rate Respiratory/Chest: chest wall non-tender Abdomen: non tender Extremities: non-tender Edema: no edema noted Leg (L), no edema noted Leg (R) Edema: mild edema Neurologic: alert Skin: warm/dry Jax Alcaraz May 03, 2017 15:52
[2017-05-03 16:44] VITALS: BP 115/59
[2017-05-03 20:00] VITALS: BP 140/74
--- NOTE | 2017-05-03 20:36 | Infectious Diseases Prog Note ---
Assessment/Plan Problems: (1) Sepsis Assessment & Plan: less likely with negative blood culture, will stop cefepime and vancomycin empirically , and monitor off antibiotics (2) Hypotension Assessment & Plan: not due to sepsis, with negative blood culture, continue fluids for hydration, hold blood pressure meds (3) Dehydration Assessment & Plan: continue IVF for hydration , monitor UOP (4) History of CVA (cerebrovascular accident) Assessment & Plan: stable continue meds (5) PEG (percutaneous endoscopic gastrostomy) adjustment/replacement/removal Assessment & Plan: S/P tube replacement , continue local care Subjective Constitutional: Reports: no symptoms HEENT: Reports: no symptoms Respiratory: Reports: no symptoms Breasts: Reports: no symptoms Cardiovascular: Reports: no symptoms Gastrointestinal/Abdominal: Reports: no symptoms Genitourinary: Reports: no symptoms Neurologic: Reports: no symptoms Psychiatric: Reports: no symptoms Skin: Reports: no symptoms Endocrine: Reports: no symptoms Allergies: Coded Allergies: AUBREY INHIBITORS (Verified Allergy, Unknown, ANGIOEDEMA, 09/17/12) Objective Vital Signs Last 24 Hour Vital Signs Date Time Temp Pulse Resp B/P Pulse Ox O2 Delivery O2 Flow Rate FiO2 05/03/17 17:33 63 115/59 05/03/17 16:44 97.5 63 18 115/59 93 Nasal Cannula 05/03/17 12:05 98.0 65 20 110/60 96 Nasal Cannula 2.0 05/03/17 09:00 61 106/57 05/03/17 09:00 106/57 05/03/17 09:00 61 106/57 05/03/17 08:38 98.4 61 20 106/57 96 Nasal Cannula 2.0 05/03/17 04:00 97.8 60 20 108/67 96 Room Air 05/03/17 00:00 98.1 62 20 111/67 98 Nasal Cannula 2.0 Height (Feet): 5 Height (Inches): 8.00 Weight (Pounds): 150 General Appearance: WD/WN, no acute distress HEENT: normocephalic, atraumatic, anicteric, mucous membranes moist, PERRL Respiratory/Chest: chest wall non-tender, lungs clear, normal breath sounds, no respiratory distress, no accessory muscle use Cardiovascular: normal peripheral pulses, normal rate, regular rhythm, no gallop/murmur, no JVD Abdomen: normal bowel sounds, soft, non tender, no organomegaly, non distended , no mass, no scars Extremities: no cyanosis, no clubbing Skin: no rash, no lesions, no ulcers Current Medications Medications (Trade) Dose Ordered Sig/Yousuf Route PRN Reason Start Time Stop Time Status Last Admin Dose Admin Acetaminophen (Tylenol) 325 mg Q4H PRN ORAL FEVER >101F, NTE 3GM/24HR 05/01/17 16:30 05/31/17 16:29 Acetaminophen (Tylenol) 650 mg Q4H PRN ORAL MILD PAIN, NTE 3GM/24HR 05/01/17 16:30 05/31/17 16:29 Amiodarone HCl (Cordarone) 100 mg DAILY GT 05/02/17 09:00 06/01/17 08:59 05/02/17 10:13 Amlodipine Besylate (Norvasc) 5 mg DAILY GT 05/02/17 09:00 06/01/17 08:59 05/02/17 10:14 Apixaban (Eliquis) 2.5 mg BID GT 05/01/17 20:00 05/31/17 19:59 05/03/17 17:33 Bisacodyl (Dulcolax) 10 mg DAILYPRN PRN RECTAL MOM IS INEFFECTIVE FOR CONSTIP 05/01/17 16:30 05/31/17 16:29 Bupropion HCl (Wellbutrin) 75 mg BID GT 05/01/17 18:00 05/31/17 17:59 05/03/17 17:33 Clonidine HCl (Catapres) 0.1 mg DAILY GT 05/02/17 09:00 06/01/17 08:59 05/02/17 10:14 Clonidine HCl (Catapres) 0.1 mg Q6H PRN GT FOR SBP >160 05/01/17 16:30 05/31/17 16:29 Clotrimazole (Lotrimin) 1 applic EVERY 12 HOURS TOPIC 05/02/17 09:00 06/01/17 08:59 05/03/17 09:38 Ferrous Sulfate (Feosol) 300 mg DAILY GT 05/02/17 09:00 06/01/17 08:59 05/03/17 09:37 Finasteride (Proscar) 5 mg DAILY GT 05/02/17 09:00 06/01/17 08:59 05/03/17 09:37 Furosemide (Lasix) 20 mg DAILY GT 05/02/17 09:00 06/01/17 08:59 05/03/17 09:37 Lansoprazole (Prevacid) 30 mg DAILY GT 05/02/17 09:00 06/01/17 08:59 05/03/17 09:37 Magnesium Hydroxide (Mom) 30 ml DAILY PRN GT Constipation 05/01/17 16:30 05/31/17 16:29 05/03/17 05:41 Metformin HCl (Glucophage) 500 mg TWICE A DAY GT 05/01/17 18:00 05/31/17 17:59 05/03/17 09:37 Metoprolol Tartrate (Lopressor) 12.5 mg BID GT 05/01/17 18:00 05/31/17 17:59 05/02/17 19:11 Multivitamins (Multivitamins W/ Minerals 15ml Liquid) 15 ml DAILY GT 05/02/17 09:00 06/01/17 08:59 05/03/17 09:37 Sodium Chloride (Sodium Chloride 1000ml bag) 1,000 ml @ 75 mls/hr [id number] IV 05/01/17 02:00 05/31/17 01:59 05/03/17 05:54 Valproic Acid (Depakene) 250 mg Q8HR GT 05/01/17 22:00 05/31/17 21:59 05/03/17 13:17 Vitamin A/Vitamin D (A & D Oint) 1 applic EVERY 12 HOURS TOPIC 05/01/17 09:00 05/31/17 08:59 05/03/17 09:38 Aida Frederick M.D. May 03, 2017 20:36
--- NOTE | 2017-05-03 21:07 | General Progress Note ---
Assessment/Plan Problem List: (1) trach tube placement (2) Hypotension ICD Codes: I95.9 - Hypotension, unspecified SNOMED: 24071441 Qualifiers: Qualified Codes: I95.9 - Hypotension, unspecified (3) Dehydration ICD Codes: E86.0 - Dehydration SNOMED: 16851236 (4) Dementia ICD Codes: F03.90 - Dementia SNOMED: 19043310 (5) Dysphagia ICD Codes: R13.10 - Dysphagia SNOMED: 04087617 Status: progressing Assessment/Plan vitals stable s/p change of peg hypotension resolved dc in am Subjective ROS Limited/Unobtainable: Yes Allergies: Coded Allergies: AUBREY INHIBITORS (Verified Allergy, Unknown, ANGIOEDEMA, 09/17/12) Objective Last 24 Hour Vital Signs Date Time Temp Pulse Resp B/P Pulse Ox O2 Delivery O2 Flow Rate FiO2 05/03/17 20:00 97.7 57 20 140/74 94 Room Air 05/03/17 17:33 63 115/59 05/03/17 16:44 97.5 63 18 115/59 93 Nasal Cannula 05/03/17 12:05 98.0 65 20 110/60 96 Nasal Cannula 2.0 05/03/17 09:00 61 106/57 05/03/17 09:00 106/57 05/03/17 09:00 61 106/57 05/03/17 08:38 98.4 61 20 106/57 96 Nasal Cannula 2.0 05/03/17 04:00 97.8 60 20 108/67 96 Room Air 05/03/17 00:00 98.1 62 20 111/67 98 Nasal Cannula 2.0 Intake and Output 05/02/17 05/03/17 19:00 07:00 Intake Total 270 ml 1398.334 ml Output Total 400 ml 700 ml Balance -130 ml 698.334 ml Free Water 30 ml 100 ml IV Total 185 ml 968.334 ml Tube Feeding 55 ml 330 ml Output Urine Total 400 ml 700 ml Height (Feet): 5 Height (Inches): 8.00 Weight (Pounds): 150 Cardiovascular: normal rate Respiratory/Chest: lungs clear Laina Pereira MD May 03, 2017 21:07
--- NOTE | 2017-05-03 21:50 | General Progress Note ---
Assessment/Plan Assessment/Plan ASSESSMENT AND RECS: 1. Anemia secondary to chronic disease. Continue to monitor. --> Hemoglobin goal of greater than 7 --> Anemia w/u has been reviewed 2. Leukopenia secondary to infectious process. 3. Lymphopenia. Continue to closely monitor. 4. Uremia, potentially secondary to dehydration. 5. Hypoalbuminemia secondary to malnutrition. 6. Infection on the gastrostomy tube site and sepsis, is on broad-spectrum antibiotics. 7. Dehydration. Monitor urine output on IV fluids. 8. Percutaneous endoscopic gastrostomy tube replacement. 9. History of cerebrovascular accident, stable. 10. Gastrostomy and GI catheter in good position. Subjective Constitutional: Denies: chills, diaphoresis, fever, malaise, no symptoms, other , weakness HEENT: Denies: blurred vision, double vision, ear discharge, ear pain, eye pain , mouth pain, mouth swelling, no symptoms, nose congestion, nose pain, other, tearing, throat pain, throat swelling Cardiovascular: Denies: chest pain, edema, irregular heart rate, lightheadedness, no symptoms, other, palpitations, syncope Respiratory: Denies: SOB at rest, SOB with excertion, cough, no symptoms, orthopnea, other, shortness of breath, sputum, stridor, wheezing Gastrointestinal/Abdominal: Denies: abdomen distended, abdominal pain, black stools, blood in stool, constipated, diarrhea, difficulty swallowing, nausea, no symptoms, other, poor appetite, poor fluid intake, rectal bleeding, tarry stools, vomiting Genitourinary: Denies: burning, discharge, flank pain, frequency, hematuria, incontinence, no symptoms, other, pain, urgency Neurologic/Psychiatric: Denies: anxiety, depressed, emotional problems, headache, no symptoms, numbness, other, paresthesia, pre-existing deficit, seizure, tingling, tremors, weakness Allergies: Coded Allergies: AUBREY INHIBITORS (Verified Allergy, Unknown, ANGIOEDEMA, 09/17/12) Subjective on peg tube feedings, no events, no fevers Objective Last 24 Hour Vital Signs Date Time Temp Pulse Resp B/P Pulse Ox O2 Delivery O2 Flow Rate FiO2 05/03/17 20:00 97.7 57 20 140/74 94 Room Air 05/03/17 17:33 63 115/59 05/03/17 16:44 97.5 63 18 115/59 93 Nasal Cannula 05/03/17 12:05 98.0 65 20 110/60 96 Nasal Cannula 2.0 05/03/17 09:00 61 106/57 05/03/17 09:00 106/57 05/03/17 09:00 61 106/57 05/03/17 08:38 98.4 61 20 106/57 96 Nasal Cannula 2.0 05/03/17 04:00 97.8 60 20 108/67 96 Room Air 05/03/17 00:00 98.1 62 20 111/67 98 Nasal Cannula 2.0 Intake and Output 05/02/17 05/03/17 19:00 07:00 Intake Total 270 ml 1398.334 ml Output Total 400 ml 700 ml Balance -130 ml 698.334 ml Free Water 30 ml 100 ml IV Total 185 ml 968.334 ml Tube Feeding 55 ml 330 ml Output Urine Total 400 ml 700 ml Height (Feet): 5 Height (Inches): 8.00 Weight (Pounds): 150 General Appearance: alert EENT: TMs normal Neck: supple Cardiovascular: regular rhythm Respiratory/Chest: normal breath sounds Abdomen: non tender Extremities: normal range of motion Edema: 1+ Leg (L), 1+ Leg (R) Edema: mild edema Neurologic: alert Skin: warm/dry Jax Alcaraz May 03, 2017 21:50
[2017-05-04] VITALS: BP 123/63
[2017-05-04 04:00] VITALS: BP 130/62
[2017-05-04] MEDS: Valproic Acid 250mg/5ml Liquid GT SCH (06:32)
[2017-05-04 08:00] VITALS: BP 124/89
[2017-05-04 08:30] LABS: BASOPHILS % (AUTO) 0.8 % (0.0-2.0); EOSINOPHILS % (AUTO) 3.8 % (0.0-3.0); LYMPHOCYTES % (AUTO) 14.3 % (20.0-45.0); MEAN CORPUSCULAR HEMOGLOBIN 35.7 PG (27.0-31.0); MEAN CORPUSCULAR HGB CONC 33.9 G/DL (32.0-36.0); MEAN CORPUSCULAR VOLUME 105 FL (80-99); MEAN PLATELET VOLUME 8.1 FL (6.5-10.1); MONOCYTES % (AUTO) 6.4 % (1.0-10.0); NEUTROPHILS % (AUTO) 74.7 % (45.0-75.0); PLATELET COUNT 249 K/UL (150-450); RED CELL DISTRIBUTION WIDTH 13.8 % (11.6-14.8); WHITE BLOOD COUNT 4.7 K/UL (4.8-10.8)
[2017-05-04] MEDS: Eliquis 2.5mg tablet GT SCH (08:42)
[2017-05-04] MEDS: Ferrous Sulfate 300 MG/5 ML UDC GT SCH (08:42)
[2017-05-04] MEDS: Multivitamins W/Minerals 15 ML UDC GT SCH (08:42)
[2017-05-04] MEDS: metFORMIN 500mg tab GT SCH (08:43)
[2017-05-04] MEDS: BuPROPion 75mg Tab GT SCH (08:43)
[2017-05-04] MEDS: Amiodarone 200mg tab GT SCH (08:44)
[2017-05-04] MEDS: Metoprolol 25mg tab GT SCH (08:44)
[2017-05-04] MEDS: Vitamin A&D Oint 2oz Tube TOPIC SCH (08:45)
--- NOTE | 2017-05-04 12:30 | GI Progress Note ---
Assessment/Plan Problems: (1) Ileus ICD Codes: K56.7 - Ileus, unspecified SNOMED: 242055106 (2) PEG (percutaneous endoscopic gastrostomy) adjustment/replacement/removal ICD Codes: Z43.1 - Encounter for attention to gastrostomy SNOMED: 011394250 (3) Dysphagia ICD Codes: R13.10 - Dysphagia SNOMED: 80638955 (4) Dementia ICD Codes: F03.90 - Dementia SNOMED: 15955463 Status: stable Status Narrative Discussed with Dr. Goetz. Assessment/Plan GT replaced GTFs per dietary, tolerating GT site care/prn fu labs dc planning Subjective Subjective limited Objective Last 24 Hour Vital Signs Date Time Temp Pulse Resp B/P Pulse Ox O2 Delivery O2 Flow Rate FiO2 05/04/17 08:45 124/89 05/04/17 08:44 70 124/89 05/04/17 08:44 70 124/89 05/04/17 08:00 97.2 70 20 124/89 100 Room Air 05/04/17 04:00 97.8 60 20 130/62 95 Room Air 05/04/17 00:00 97.8 60 20 123/63 95 Room Air 05/03/17 20:00 97.7 57 20 140/74 94 Room Air 05/03/17 17:33 63 115/59 05/03/17 16:44 97.5 63 18 115/59 93 Nasal Cannula Intake and Output 05/03/17 05/04/17 19:00 07:00 Intake Total 1695 ml 1455 ml Output Total 1400 ml Balance 295 ml 1455 ml Free Water 100 ml 300 ml IV Total 935 ml 825 ml Tube Feeding 660 ml 330 ml Output Urine Total 1400 ml # Voids 5 # Bowel Movements 2 Laboratory Tests Test 05/04/17 07:10 White Blood Count 4.7 K/UL (4.8-10.8) L Red Blood Count 3.60 M/UL (4.70-6.10) L Hemoglobin 12.8 G/DL (14.2-18.0) L Hematocrit 37.9 % (42.0-52.0) L Mean Corpuscular Volume 105 FL (80-99) H Mean Corpuscular Hemoglobin 35.7 PG (27.0-31.0) H Mean Corpuscular Hemoglobin Concent 33.9 G/DL (32.0-36.0) Red Cell Distribution Width 13.8 % (11.6-14.8) Platelet Count 249 K/UL (150-450) Mean Platelet Volume 8.1 FL (6.5-10.1) Neutrophils (%) (Auto) 74.7 % (45.0-75.0) Lymphocytes (%) (Auto) 14.3 % (20.0-45.0) L Monocytes (%) (Auto) 6.4 % (1.0-10.0) Eosinophils (%) (Auto) 3.8 % (0.0-3.0) H Basophils (%) (Auto) 0.8 % (0.0-2.0) Height (Feet): 5 Height (Inches): 8.00 Weight (Pounds): 150 General Appearance: no apparent distress, alert Cardiovascular: normal rate Respiratory/Chest: normal breath sounds Abdominal Exam: site - c/d/i Trinh Bonilla N.P. May 04, 2017 12:30
[2017-05-04 12:53] VITALS: BP 115/71
--- NOTE | 2017-05-04 15:15 | Infectious Diseases Prog Note ---
Assessment/Plan Problems: (1) Sepsis Assessment & Plan: less likely with negative blood culture, stable off antibiotics (2) Hypotension Assessment & Plan: not due to sepsis, with negative blood culture, improved with fluids for hydration, monitor blood pressure (3) Dehydration Assessment & Plan: resolved with IVF (4) History of CVA (cerebrovascular accident) Assessment & Plan: stable continue meds (5) PEG (percutaneous endoscopic gastrostomy) adjustment/replacement/removal Assessment & Plan: S/P tube replacement , continue local care Subjective Constitutional: Reports: no symptoms HEENT: Reports: no symptoms Respiratory: Reports: no symptoms Breasts: Reports: no symptoms Cardiovascular: Reports: no symptoms Gastrointestinal/Abdominal: Reports: no symptoms Genitourinary: Reports: no symptoms Neurologic: Reports: no symptoms Psychiatric: Reports: no symptoms Skin: Reports: no symptoms Endocrine: Reports: no symptoms Hematologic: Reports: no symptoms Allergies: Coded Allergies: AUBREY INHIBITORS (Verified Allergy, Unknown, ANGIOEDEMA, 09/17/12) Objective Vital Signs Last 24 Hour Vital Signs Date Time Temp Pulse Resp B/P Pulse Ox O2 Delivery O2 Flow Rate FiO2 05/04/17 12:53 97.0 68 20 115/71 96 Nasal Cannula 2.0 05/04/17 08:45 124/89 05/04/17 08:44 70 124/89 05/04/17 08:44 70 124/89 05/04/17 08:00 97.2 70 20 124/89 100 Room Air 05/04/17 04:00 97.8 60 20 130/62 95 Room Air 05/04/17 00:00 97.8 60 20 123/63 95 Room Air 05/03/17 20:00 97.7 57 20 140/74 94 Room Air 05/03/17 17:33 63 115/59 05/03/17 16:44 97.5 63 18 115/59 93 Nasal Cannula Height (Feet): 5 Height (Inches): 8.00 Weight (Pounds): 150 General Appearance: WD/WN, no acute distress HEENT: normocephalic, atraumatic, anicteric, mucous membranes moist Respiratory/Chest: chest wall non-tender, lungs clear, normal breath sounds, no respiratory distress, no accessory muscle use Cardiovascular: normal peripheral pulses, normal rate, regular rhythm, no gallop/murmur, no JVD Abdomen: normal bowel sounds, soft, non tender, no organomegaly, non distended , no mass, no scars Extremities: no cyanosis, no clubbing Skin: no rash, no lesions, no ulcers Laboratory Tests Test 05/04/17 07:10 White Blood Count 4.7 K/UL (4.8-10.8) L Red Blood Count 3.60 M/UL (4.70-6.10) L Hemoglobin 12.8 G/DL (14.2-18.0) L Hematocrit 37.9 % (42.0-52.0) L Mean Corpuscular Volume 105 FL (80-99) H Mean Corpuscular Hemoglobin 35.7 PG (27.0-31.0) H Mean Corpuscular Hemoglobin Concent 33.9 G/DL (32.0-36.0) Red Cell Distribution Width 13.8 % (11.6-14.8) Platelet Count 249 K/UL (150-450) Mean Platelet Volume 8.1 FL (6.5-10.1) Neutrophils (%) (Auto) 74.7 % (45.0-75.0) Lymphocytes (%) (Auto) 14.3 % (20.0-45.0) L Monocytes (%) (Auto) 6.4 % (1.0-10.0) Eosinophils (%) (Auto) 3.8 % (0.0-3.0) H Basophils (%) (Auto) 0.8 % (0.0-2.0) Aida Frederick M.D. May 04, 2017 15:15
--- NOTE | 2017-05-04 18:08 | General Progress Note ---
Assessment/Plan Assessment/Plan ASSESSMENT AND RECS: 1. Anemia secondary to chronic disease. Continue to monitor. --> Hemoglobin goal of greater than 7 --> Anemia w/u has been reviewed 2. Leukopenia secondary to infectious process. 3. Lymphopenia. Continue to closely monitor. 4. Uremia, potentially secondary to dehydration. 5. Hypoalbuminemia secondary to malnutrition. 6. Infection on the gastrostomy tube site and sepsis, is on broad-spectrum antibiotics. 7. Dehydration. Monitor urine output on IV fluids. 8. Percutaneous endoscopic gastrostomy tube replacement. 9. History of cerebrovascular accident, stable. 10. Gastrostomy and GI catheter in good position. Subjective Constitutional: Reports: no symptoms HEENT: Reports: no symptoms Cardiovascular: Reports: no symptoms Respiratory: Reports: no symptoms Gastrointestinal/Abdominal: Reports: no symptoms Genitourinary: Reports: no symptoms Neurologic/Psychiatric: Reports: no symptoms Endocrine: Reports: no symptoms Hematologic/Lymphatic: Reports: no symptoms Allergies: Coded Allergies: AUBREY INHIBITORS (Verified Allergy, Unknown, ANGIOEDEMA, 09/17/12) Subjective clear for dc Objective Last 24 Hour Vital Signs Date Time Temp Pulse Resp B/P Pulse Ox O2 Delivery O2 Flow Rate FiO2 05/04/17 12:53 97.0 68 20 115/71 96 Nasal Cannula 2.0 05/04/17 08:45 124/89 05/04/17 08:44 70 124/89 05/04/17 08:44 70 124/89 05/04/17 08:00 97.2 70 20 124/89 100 Room Air 05/04/17 04:00 97.8 60 20 130/62 95 Room Air 05/04/17 00:00 97.8 60 20 123/63 95 Room Air 05/03/17 20:00 97.7 57 20 140/74 94 Room Air Intake and Output 05/03/17 05/04/17 19:00 07:00 Intake Total 1695 ml 1510 ml Output Total 1400 ml Balance 295 ml 1510 ml Free Water 100 ml 300 ml IV Total 935 ml 825 ml Tube Feeding 660 ml 385 ml Output Urine Total 1400 ml # Voids 5 # Bowel Movements 2 Laboratory Tests 05/04/17 07:10: White Blood Count 4.7L, Red Blood Count 3.60L, Hemoglobin 12.8L, Hematocrit 37.9L, Mean Corpuscular Volume 105H, Mean Corpuscular Hemoglobin 35.7H, Mean Corpuscular Hemoglobin Concent 33.9, Red Cell Distribution Width 13.8, Platelet Count 249, Mean Platelet Volume 8.1, Neutrophils (%) (Auto) 74.7, Lymphocytes (% ) (Auto) 14.3L, Monocytes (%) (Auto) 6.4, Eosinophils (%) (Auto) 3.8H, Basophils (%) (Auto) 0.8 Height (Feet): 5 Height (Inches): 8.00 Weight (Pounds): 150 General Appearance: no apparent distress EENT: normal ENT inspection Neck: normal alignment Cardiovascular: normal peripheral pulses Respiratory/Chest: chest wall non-tender Neurologic: fractionating still operator II-XII grossly normal Skin: warm/dry Jax Alcaraz May 04, 2017 18:08
--- NOTE | 2017-05-05 09:44 | Discharge Summary ---
Discharge Summary Hospital Course Date of Admission Apr 30, 2017 at 18:08 Date of Discharge May 04, 2017 at 13:30 Admitting Diagnosis weakness, dehydration HPI Darek Garcia is a 76 year old male who was admitted on Apr 30, 2017 at 18: 08 for Weakness, Dehydration Hospital Course dc summary #[id number] Discharge Medications Continued Medications: Acetaminophen* (Acetaminophen 325MG Tablet*) 325 Mg Tablet 325 MG GT Q4H PRN for IF FEVER >101F, NTE 3G/24HR Acetaminophen* (Acetaminophen 325MG Tablet*) 325 Mg Tablet 650 MG GT Q4H PRN for MILD PAIN, NTE 3G/24HR Acetaminophen* (Acetaminophen 325MG Tablet*) 325 Mg Tablet 325 MG GT DAILY for GIVE 30 MIN PRIOR TO TX Amiodarone Hcl* (Pacerone*) 100 Mg Tablet 100 MG GT DAILY for HOLD IF SBP<110 OR DBP<60 Amlodipine Besylate* (Amlodipine Besylate*) 5 Mg Tablet 5 MG GT DAILY for FOR HTN, HOLD IF SBP<110 Apixaban (Eliquis) 2.5 Mg Tablet 2.5 MG GT BID for FOR A-FIB Bisacodyl (Dulcolax) 10 Mg Supp.rect 10 MG RC DAILY PRN for IF MOM IS INEFFECTIVE Bupropion Hcl* (Bupropion Hcl*) 75 Mg Tablet 75 MG GT BID for FOR DEPRESSION Clonidine Hcl* (Catapres*) 0.1 Mg Tablet 0.1 MG GT EVERY 6 HOURS PRN for FOR SBP >160 Clonidine Hcl* (Catapres*) 0.1 Mg Tablet 0.1 MG GT DAILY for HOLD FOR SBP <110 Cranberry Extract (Cranberry Concentrate) 500 Mg Capsule 500 MG GT DAILY for FOR UTI PPX Esomeprazole Magnesium (Nexium) 40 Mg Capsule.dr 40 MG GT DAILY for BEFORE BREAKFAST Ferrous Sulfate (Ferrous Sulfate) 220 Mg/5 Ml Solution 7.5 ML GT DAILY for FOR ANEMIA Finasteride* (Proscar*) 5 Mg Tablet 5 MG GT DAILY for FOR BPH Fluorouracil (Fluorouracil) 40 Gm Cream..g. 40 GM TP DAILY for FACE AND SCALP LESIONS Furosemide* (Lasix*) 20 Mg Tablet 20 MG GT DAILY for FOR CHF Magnesium Hydroxide* (Milk Of Magnesia*) 400 Mg/5 Ml Oral.susp 30 ML GT DAILY PRN for Constipation Metformin Hcl* (Metformin Hcl*) 500 Mg Tablet 500 MG GT TWICE A DAY for WITH BREAKFAST AND DINNER Metoprolol Tartrate* (Metoprolol Tartrate*) 25 Mg Tablet 12.5 MG GT BID for HOLD FOR SBP <110 Multivitamin Liquid* (Multi-Delyn*) 237 Ml Liquid 5 ML GT DAILY for Constipation Valproate Sodium (Valproic Acid) 250 Mg/5 Ml Solution 250 MG GT TID for FOR SEIZURE D/O Discharge Condition Upon Discharge: stable Discharge Disposition Patient was discharged to SNF/Subacute Facility(03) Discharge Diagnoses: Discharge Instructions Discharge Instructions Special Instructions I have been assigned to complete a D/C Summary on this account. I was not involved in the patient management Dario DuenasLyndsay garrett NP May 05, 2017 09:44
--- NOTE | 2017-05-05 11:32 | Discharge Summary 2 SIG ---
DATE OF ADMISSION: 04/30/2017 DATE OF DISCHARGE: 05/04/2017 CONSULTANTS: 1. Aida Frederick M.D., ID. 2. Mg Goetz M.D., GI specialist. 3. Jax Alcaraz M.D., Machine Heel Builder. BRIEF HOSPITAL COURSE: 76 years old male with history of diabetes, COPD, CVA, dysphagia, G-tube was sent from the longterm facility for G-tube replacement. Apparently, he pulled out the G-tube at the longterm [facility] and it was not functioning. In the emergency department, G-tube was removed and new G-tube was replaced with a 16-E[place] gauge catheter. KUB confirmed placement of G-tube. The patient had no leukocytosis. Mild anemia. Sodium -130, potassium -5.0. Chest x-ray revealed cardiomegaly, no acute process otherwise. Troponin was negative. BUN -31, creatinine -1.0. The patient was admitted for further management. GI closely followed the patient. Tube feeding started as per dietary recommendation. G-tube surgical site provided. The patient was on GI prophylaxis. The patient was on gentle IV fluids. Renal parameters and electrolytes closely monitored. BUN down prior to discharge. Azotemia was probably likely due to dehydration. Anemia workup was done. Machine Heel Builder closely reviewed and concluded that the patient had anemia of chronic disease. He recommended to closely monitor counts and have a goal of hemoglobin above 7. The patient was initially hypotensive which resolved with IV hydration. Hypotension was likely also due to dehydration. ID followed the patient for possible infection. The patient was initially on the empiric antibiotics. Blood culture were negative. Antibiotic stopped. ID recommended observe the patient off antibiotics. Chest x-ray revealed no acute cardiopulmonary disease. Venous duplex bilateral lower extremities was negative. The patient was stable for transfer to longterm [facility]. DISCHARGE DIAGNOSES: : 1. Gastrostomy tube malfunctioning, 2. Status post replacement of gastrostomy tube. 3. Dehydration. 4. Hypotension likely secondary to dehydration. 5. Anemia of chronic disease. 6. Chronic dementia. 7. History of cerebrovascular accident. DISCHARGE MEDICATIONS: See medication reconciliation list. DISCHARGE INSTRUCTIONS: The patient to follow up with medical doctor at the facility. Laina Pereira M.D. I have been assigned to dictate discharge summary on this account and I was not involved in the patient's management. Lyndsay Bishop (Vanchtein) NSantana DR: ANASTASIA JOB#: [id number] CC: SANDEEP
== END 2017-05-04 13:30 | DRG 641 ==
LOC: EDBD 16:35 → EMR 18:07 → 4E 18:08 → EDBEDREQSVC 18:19 → EDBEDREQ 18:25
PROC: 0D20XUZ Change Feeding Device in Upper Intestinal Tract, External Approach (ICD-10-PCS; principal; 2017-04-30)
DX: E86.0 Dehydration (principal); E46 Unspecified protein-calorie malnutrition; I95.9 Hypotension, unspecified; J44.9 Chronic obstructive pulmonary disease, unspecified; K94.23 Gastrostomy malfunction; F03.90 Unspecified dementia, unspecified severity, without behavioral disturbance, psychotic disturbance, mood disturbance, and anxiety; E11.9 Type 2 diabetes mellitus without complications; R13.10 Dysphagia, unspecified; Z86.73 Personal history of transient ischemic attack (TIA), and cerebral infarction without residual deficits; D63.8 Anemia in other chronic diseases classified elsewhere; Z95.0 Presence of cardiac pacemaker; Z88.8 Allergy status to other drugs, medicaments and biological substances; F29 Unspecified psychosis not due to a substance or known physiological condition; F20.9 Schizophrenia, unspecified
CPT/HCPCS: 36415; 43760; 71010; 74000; 80053; 81003; 82550; 82553; 82962; 83605; 83880; 84484; 85025; 87040; 93005; 93970

== ENCOUNTER 2017-06-05 12:37 | Inpatient (IN) | payer MEDICARE, MEDICAID ==
[~2017-06-05] VITALS: Ht 160 cm; Wt 63.5 kg
[~2017-06-05 12:37] MED LIST changes: +ACETAMINOPHEN325 M1 GT; +ACETAMINOPHEN325 M1 ORAL; +BUPROPION HCL75 MG GT; +CRANBERRY CONC500 MG GT; +DULCOLAX10 MG RC; +FEROSUL220 MG/5 M GT; +FERROUS SU220 MG/51 GT; +FLUOROURACIL40 GM TP; +MULTI-DELYN237 ML GT; +VALPROIC A250 MG/5 M GT
[2017-06-05 12:45] VITALS: BP 125/72
[2017-06-05 13:48] LABS: BASOPHILS % (AUTO) 1.1 % (0.0-2.0); EOSINOPHILS % (AUTO) 4.1 % (0.0-3.0); LYMPHOCYTES % (AUTO) 13.3 % (20.0-45.0); MEAN CORPUSCULAR HEMOGLOBIN 34.3 PG (27.0-31.0); MEAN CORPUSCULAR HGB CONC 32.2 G/DL (32.0-36.0); MEAN CORPUSCULAR VOLUME 106 FL (80-99); MONOCYTES % (AUTO) 11.3 % (1.0-10.0); NEUTROPHILS % (AUTO) 70.2 % (45.0-75.0); PLATELET COUNT 196 K/UL (150-450); RED BLOOD COUNT 2.94 M/UL (4.70-6.10); RED CELL DISTRIBUTION WIDTH 15.2 % (11.6-14.8); WHITE BLOOD COUNT 4.5 K/UL (4.8-10.8)
[2017-06-05 14:13] LABS: TROPONIN I < 0.30 ng/mL (<=0.30)
[2017-06-05 14:17] LABS: ALANINE AMINOTRANSFERASE 12 U/L (3-41); ALBUMIN/GLOBULIN RATIO 0.9 (1.0-2.7); ANION GAP 11 (5-15); ASPARTATE AMINO TRANSFERASE 23 U/L (5-40); CALCIUM 9.2 mg/dL (8.6-10.2); CARBON DIOXIDE 29 mEQ/L (20-30); CHLORIDE 97 mEQ/L (98-107); CREATININE 0.9 mg/dL (0.7-1.2); HEMOLYSIS 1; LIPASE 24 U/L (< 60); POTASSIUM 4.7 mEQ/L (3.4-4.9); SODIUM 137 mEQ/L (135-145); TOTAL PROTEIN 7.2 g/dL (6.6-8.7)
[2017-06-05 14:27] LABS: CKMB 1.7 ng/mL (< 6.7)
[2017-06-05 14:55] VITALS: BP 142/68
--- NOTE | 2017-06-05 15:01 | Emergency Room Report ---
History of Present Illness General Chief Complaint: Malfunctioning Gastric Tube Source: Patient Present Illness HPI 76-year-old male presents ED for G-tube placement. Per EMS patient G-tube has tear. noticed by nursing staff at the assisted facility this morning. Upon arrival patient showing no signs of distress. No pain. No nausea or vomiting. No fevers or chills. No other aggravating relieving factors. No other associated symptoms Allergies: Coded Allergies: AUBREY INHIBITORS (Verified Allergy, Unknown, ANGIOEDEMA, 09/17/12) Patient History Past Medical History: asthma, COPD, CVA/TIA, seizures Past Surgical History: pacemaker, other - GTUBE Social History: Denies: smoking, alcohol use, drug use Immunizations: UTD Reviewed Nursing Documentation: PMH: Agreed, PSxH: Agreed Nursing Documentation-PMH Past Medical History: No History, Except For Hx Cardiac Problems: Yes Hx Hypertension: Yes Hx Pacemaker: Yes - L upper Chest Hx Asthma: Yes Hx COPD: Yes Hx Diabetes: Yes Hx Cancer: No Hx Gastrointestinal Problems: Yes - G T placement Hx Dialysis: No Hx Cerebrovascular Accident: Yes Hx Seizures: Yes Hx Aphasia: Yes Hx Dysphasia: Yes Hx Weakness: Yes Hx Fatigue: Yes Review of Systems All Other Systems: negative except mentioned in HPI Physical Exam Vital Signs Date Time Temp Pulse Resp B/P (MAP) Pulse Ox O2 Delivery O2 Flow Rate FiO2 06/05/17 12:38 97.9 58 18 125/72 98 06/05/17 14:55 Room Air Sp02 EP Interpretation: reviewed, normal General Appearance: no apparent distress, alert, GCS 15, non-toxic Head: normocephalic, atraumatic Eyes: bilateral eye normal inspection, bilateral eye PERRL ENT: hearing grossly normal, normal pharynx, no angioedema, normal voice Neck: full range of motion, supple/symm/no masses Respiratory: chest non-tender, lungs clear, normal breath sounds, speaking full sentences Cardiovascular #1: regular rate, rhythm, no edema Cardiovascular #2: 2+ carotid (R), 2+ carotid (L), 2+ radial (R), 2+ radial (L) , 2+ dorsalis pedis (R), 2+ dorsalis pedis (L) Gastrointestinal: normal bowel sounds, non tender, soft, non-distended, no guarding, no rebound, other - Gtube site C/D/I Rectal: deferred Genitourinary: normal inspection, no CVA tenderness Musculoskeletal: back normal, gait/station normal, normal range of motion, non- tender Neurologic: alert, oriented x3, responsive, motor strength/tone normal, sensory intact, speech normal Psychiatric: judgement/insight normal, memory normal, mood/affect normal, no suicidal/homicidal ideation Reflexes: 3+ bicep (R), 3+ bicep (L), 3+ tricep (R), 3+ tricep (L), 3+ knee (R) , 3+ knee (L) Skin: normal color, no rash, warm/dry, well hydrated Lymphatic: no adenopathy Medical Decision Making Diagnostic Impression: Primary Impression: Malfunction of gastrostomy tube ER Course Hospital Course 76-year-old male presents to ED for gtube placement Differential Diagnosis - cellulitis, abscess, malfunctioning Gtube, sepsis Clinical course Patient placed on stretcher. After initial history and physical, I attempted to deflate the G-tube. However I was unsuccessful. Unable to manually remove the G-tube. Patient will require admission for G-tube placement Labs reviewed-no leukocytosis, hemoglobin/hematocrit stable, electrolytes okay Case discussed with Dr. Pereira and he agreed to accept the patient to his service for further care and support Diagnosis - malfunction of Gastrostomy tube Admitted to floor in serious condition Labs Test 06/05/17 13:25 White Blood Count 4.5 K/UL (4.8-10.8) Red Blood Count 2.94 M/UL (4.70-6.10) Hemoglobin 10.1 G/DL (14.2-18.0) Hematocrit 31.2 % (42.0-52.0) Mean Corpuscular Volume 106 FL (80-99) Mean Corpuscular Hemoglobin 34.3 PG (27.0-31.0) Mean Corpuscular Hemoglobin Concent 32.2 G/DL (32.0-36.0) Red Cell Distribution Width 15.2 % (11.6-14.8) Platelet Count 196 K/UL (150-450) Mean Platelet Volume 9.0 FL (6.5-10.1) Neutrophils (%) (Auto) 70.2 % (45.0-75.0) Lymphocytes (%) (Auto) 13.3 % (20.0-45.0) Monocytes (%) (Auto) 11.3 % (1.0-10.0) Eosinophils (%) (Auto) 4.1 % (0.0-3.0) Basophils (%) (Auto) 1.1 % (0.0-2.0) Sodium Level 137 mEQ/L (135-145) Potassium Level 4.7 mEQ/L (3.4-4.9) Chloride Level 97 mEQ/L (98-107) Carbon Dioxide Level 29 mEQ/L (20-30) Anion Gap 11 (5-15) Blood Urea Nitrogen 29 mg/dL (7-23) Creatinine 0.9 mg/dL (0.7-1.2) Estimat Glomerular Filtration Rate mL/min (>60) Glucose Level 84 mg/dL (74-106) Calcium Level 9.2 mg/dL (8.6-10.2) Total Bilirubin 0.5 mg/dL (0.0-1.2) Aspartate Amino Transf (AST/SGOT) 23 U/L (5-40) Alanine Aminotransferase (ALT/SGPT) 12 U/L (3-41) Alkaline Phosphatase 77 U/L (40-129) Total Creatine Kinase 46 U/L (38-174) Creatine Kinase MB 1.7 ng/mL (< 6.7) Creatine Kinase MB Relative Index 3.6 Troponin I < 0.30 ng/mL (<=0.30) Total Protein 7.2 g/dL (6.6-8.7) Albumin 3.5 g/dL (3.5-5.2) Globulin 3.7 g/dL Albumin/Globulin Ratio 0.9 (1.0-2.7) Lipase 24 U/L (< 60) Last Vital Signs Date Time Temp Pulse Resp B/P (MAP) Pulse Ox O2 Delivery O2 Flow Rate FiO2 06/05/17 14:55 97.9 65 12 142/68 99 Room Air Status: improved Disposition: ADMITTED INPATIENT Condition: Serious Referrals: Laina Pereira MD (PCP) JOHN MCLAIN M.D. Jun 05, 2017 15:01
[2017-06-05 16:25] VITALS: BP 141/106
--- NOTE | 2017-06-05 18:35 | Consultation ---
Consult Note Consult Note HEMATOLOGY CONSULTATION DOS: 06/05/17 CONSULTING PHYSICIAN: Jax Alcaraz M.D. REQUESTING PHYSICIAN: Laina Pereira M.D. 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 He was sent from the custodial facility for a gtube tear. Gi service consulted as well as heme for eval of anemia and leukopenia. PAST MEDICAL HISTORY: Significant for diabetes, hypotension, atrial fibrillation, COPD, CVA, TIA, and psych disorder. PAST SURGICAL HISTORY: He had a pacemaker placement and G-tube placement. ALLERGIES: He is allergic to AUBREY inhibitors. MEDICATIONS: Please refer to MAR. SOCIAL HISTORY: He is a group home resident. No recent drugs, tobacco, or alcohol. FAMILY HISTORY: Not contributory. PHYSICAL EXAMINATION: VITAL SIGNS: reviewed GENERAL: This is an elderly male, lying in bed, awake, alert, and pleasant, not in distress. HEENT: He has right sided facial cellulitis NECK: Supple. No lymphadenopathy. CARDIOVASCULAR: Regular rate and rhythm. No murmur. LUNGS: Clear bilaterally. No wheezing or rhonchi. ABDOMEN: Soft, nontender, and nondistended. Positive bowel sounds. No hepatosplenomegaly. No ascites. G-tube site looks mildly red, but no significant erythema or fluctuation. No drainage. EXTREMITIES: No edema or cyanosis. Laboratory Tests Test 06/05/17 13:25 06/05/17 13:35 White Blood Count 4.5 K/UL (4.8-10.8) L Red Blood Count 2.94 M/UL (4.70-6.10) L Hemoglobin 10.1 G/DL (14.2-18.0) L Hematocrit 31.2 % (42.0-52.0) L Mean Corpuscular Volume 106 FL (80-99) H Mean Corpuscular Hemoglobin 34.3 PG (27.0-31.0) H Mean Corpuscular Hemoglobin Concent 32.2 G/DL (32.0-36.0) Red Cell Distribution Width 15.2 % (11.6-14.8) H Platelet Count 196 K/UL (150-450) Mean Platelet Volume 9.0 FL (6.5-10.1) Neutrophils (%) (Auto) 70.2 % (45.0-75.0) Lymphocytes (%) (Auto) 13.3 % (20.0-45.0) L Monocytes (%) (Auto) 11.3 % (1.0-10.0) H Eosinophils (%) (Auto) 4.1 % (0.0-3.0) H Basophils (%) (Auto) 1.1 % (0.0-2.0) Sodium Level 137 mEQ/L (135-145) Potassium Level 4.7 mEQ/L (3.4-4.9) Chloride Level 97 mEQ/L (98-107) L Carbon Dioxide Level 29 mEQ/L (20-30) Anion Gap 11 (5-15) Blood Urea Nitrogen 29 mg/dL (7-23) H Creatinine 0.9 mg/dL (0.7-1.2) Estimat Glomerular Filtration Rate mL/min (>60) Glucose Level 84 mg/dL (74-106) Calcium Level 9.2 mg/dL (8.6-10.2) Total Bilirubin 0.5 mg/dL (0.0-1.2) Aspartate Amino Transf (AST/SGOT) 23 U/L (5-40) Alanine Aminotransferase (ALT/SGPT) 12 U/L (3-41) Alkaline Phosphatase 77 U/L (40-129) Total Creatine Kinase 46 U/L (38-174) Creatine Kinase MB 1.7 ng/mL (< 6.7) Creatine Kinase MB Relative Index 3.6 Troponin I < 0.30 ng/mL (<=0.30) Total Protein 7.2 g/dL (6.6-8.7) Albumin 3.5 g/dL (3.5-5.2) Globulin 3.7 g/dL Albumin/Globulin Ratio 0.9 (1.0-2.7) L Lipase 24 U/L (< 60) Ferritin Pending ASSESSMENT/RECS: 1. Leukopenia is very likely related to meds v occult infection, has been low on prior admissions --> recommend to adminsiter neupogen if ANC < 1500 2. Anemia 2/2 chronic disease- anemia w/u had been ordered --> b12, ferritin, folate, path smear pending 3. Cellulitis of face on abx as per id team --> improd on this admission 4. Malfunctioning of the gastrostomy tube s/p replacement before --> Gi eval 5. Maxillary sinusitis Jax Alcaraz Jun 05, 2017 18:35
[2017-06-05 19:24] LABS: THYROID STIMULATING HORMONE 58.02 uIU/mL (0.300-4.500)
[2017-06-05 20:00] VITALS: BP 120/71
[2017-06-05 20:26] LABS: BAND NEUTROPHILS % (MANUAL) 0 % (0-8); BASOPHILS % (MANUAL) 1 % (0-2); EOSINOPHILS % (MANUAL) 6 % (0-3); LYMPHOCYTES % (MANUAL) 19 % (20-45); NEUTROPHILS % (MANUAL) 69 % (45-75); PLATELET ESTIMATE ADEQUATE; TOTAL CELLS COUNTED 100
[2017-06-05 20:27] LABS: ANISOCYTOSIS 1+; MACROCYTES 2+; PLATELET MORPHOLOGY NORMAL; POLYCHROMASIA 1+
[2017-06-05 20:28] LABS: PATH BLOOD SMEAR/OMC SENT TO PATHOLOGIST
[2017-06-05 23:57] VITALS: BP 132/86
--- NOTE | 2017-06-06 01:45 | History and Physical Report ---
DATE OF ADMISSION: 06/05/2017 HISTORY OF PRESENT ILLNESS: The patient is a poor historian, cannot rely on his history. The patient has a hole in his G-tube and the ER doctor is not able to replace it. The patient is being admitted for dysphagia, dehydration, as well as replacement of G-tube. Again, we cannot obtain a reliable history from the hospital. The patient denies nausea, vomiting, or diarrhea. Denies fever or chills. Denies abdominal pain. Denies shortness of breath. Denies cough. PAST MEDICAL HISTORY: Paranoid schizophrenia, history of ENT cancer, history of , dysphagia, hypertension, psychosis, GERD, iron-deficiency anemia, BPH, hypertension, mood disorder, history of arrhythmia. PAST SURGICAL HISTORY: Head and neck surgery, PEG. MEDICATIONS: BuSpar, Dulcolax, amlodipine, amiodarone, Nexium, Lasix, multivitamin, potassium, and Depakote. ALLERGIES: AUBREY inhibitors. SOCIAL HISTORY: History of smoking. No history of alcohol or illicit drug. Lives in fdc. FAMILY HISTORY: Noncontributory. REVIEW OF SYSTEMS: HEENT: Denies headaches. Respiratory: Denies shortness of breath. Denies cough. Cardiovascular: Denies chest pain. Gastrointestinal: Denies nausea, vomiting, or diarrhea. Extremities: Denies any pain. Central Nervous System: No change in vision or speech pattern. . PHYSICAL EXAMINATION: VITAL SIGNS: Temperature 97.9 degrees, pulse 58, and blood pressure 125/73. HEENT: PERRLA. NECK: Supple. No lymphadenopathy. CHEST: Clear to auscultation. GASTROINTESTINAL: Soft, nontender, and nondistended. No organomegaly. G-tube site is intact, however, there is hole in the G-tube. EXTREMITIES: There is 1+ edema. NEUROLOGIC: Reflexes on both sides. Follows simple neurological commands, which is his baseline. Oriented x1. Able move the extremities. The patient is normally wheelchair bound. LABORATORY AND DIAGNOSTIC DATA: WBC of 4.5, hemoglobin 10.1, and platelet of 196,000. Sodium 137, potassium 4.7, BUN , creatinine . ASSESSMENT AND PLAN: Dysphagia, dehydration. Gastrostomy tube has hole in it. Dr. Macdonald has been consulted to replace the G-tube. We will give IV fluids. At this point, we will keep the patient NPO. Laina Pereira M.D. DR: YENI JOB#: [id number] CC:
[2017-06-06 04:00] VITALS: BP 120/70
[2017-06-06 08:00] VITALS: BP 124/73
[2017-06-06] MEDS: D5 1/2NS 1,000 ML IV SCH ×2 (09:12→23:00)
[2017-06-06 12:00] VITALS: BP 149/99
[2017-06-06] MEDS ORDERED: 1/2 NS 1000ml IV ONE (13:35)
--- NOTE | 2017-06-06 14:07 | General Progress Note ---
Assessment/Plan Assessment/Plan GI CONSULT Dictated GT changed Order written for synthroid 25 mcg - can titrate as outpt Check B12 and folate Thank you Ruel Macdonald MD Subjective Allergies: Coded Allergies: AUBREY INHIBITORS (Verified Allergy, Unknown, ANGIOEDEMA, 09/17/12) Objective Last 24 Hour Vital Signs Date Time Temp Pulse Resp B/P (MAP) Pulse Ox O2 Delivery O2 Flow Rate FiO2 06/06/17 12:00 97.2 77 20 149/99 96 Room Air 06/06/17 08:00 98.4 69 18 124/73 94 Room Air 06/06/17 04:00 97.4 63 20 120/70 97 Room Air 06/05/17 23:57 97.7 73 18 132/86 99 06/05/17 20:00 97.3 61 20 120/71 99 Room Air 06/05/17 16:25 98.4 61 20 141/106 95 Room Air 06/05/17 15:47 60 16 113/70 98 Room Air 06/05/17 14:55 97.9 65 12 142/68 99 Room Air Intake and Output 06/06/17 06/07/17 19:00 07:00 Intake Total 70 ml Balance 70 ml IV Total 70 ml Height (Feet): 5 Height (Inches): 3.00 Weight (Pounds): 140 RUEL MACDONALD Jun 06, 2017 14:07
[2017-06-06] MEDS ORDERED: Levothyroxine 25mcg tab GT ONE (15:00)
[2017-06-06 16:00] VITALS: BP 157/64
[2017-06-06 20:00] VITALS: BP 154/86
--- NOTE | 2017-06-06 20:58 | General Progress Note ---
Assessment/Plan Problem List: (1) Dysphagia ICD Codes: R13.10 - Dysphagia SNOMED: 84433133 (2) PEG (percutaneous endoscopic gastrostomy) adjustment/replacement/removal ICD Codes: Z43.1 - Encounter for attention to gastrostomy SNOMED: 541600766 (3) HTN (hypertension) ICD Codes: I10 - HTN (hypertension) SNOMED: 13724108 Status: progressing Assessment/Plan peg replaced by gi will dc in am afebrile Subjective ROS Limited/Unobtainable: Yes Allergies: Coded Allergies: AUBREY INHIBITORS (Verified Allergy, Unknown, ANGIOEDEMA, 09/17/12) Objective Last 24 Hour Vital Signs Date Time Temp Pulse Resp B/P (MAP) Pulse Ox O2 Delivery O2 Flow Rate FiO2 06/06/17 16:00 97.4 74 20 157/64 93 Room Air 06/06/17 12:00 97.2 77 20 149/99 96 Room Air 06/06/17 08:00 98.4 69 18 124/73 94 Room Air 06/06/17 04:00 97.4 63 20 120/70 97 Room Air 06/05/17 23:57 97.7 73 18 132/86 99 Intake and Output 06/06/17 06/07/17 19:00 07:00 Intake Total 710 ml Output Total 1400 ml Balance -690 ml IV Total 670 ml Tube Feeding 40 ml Output Urine Total 1400 ml Height (Feet): 5 Height (Inches): 3.00 Weight (Pounds): 140 Respiratory/Chest: lungs clear Abdomen: soft Laina Pereira MD Jun 06, 2017 20:58
[2017-06-07] MEDS: D5 1/2NS 1,000 ML IV SCH (00:12)
[2017-06-07 00:45] VITALS: BP 150/81
[2017-06-07 04:52] VITALS: BP 151/77
[2017-06-07] MEDS ORDERED: Levothyroxine 25mcg tab GT SCH (06:30)
[2017-06-07 08:00] VITALS: BP 135/79
--- NOTE | 2017-06-07 10:44 | Diagnostic Imaging Report ---
Indication: G-tube reposition Comparison: None Single view of the abdomen obtained Contrast instilled into the G-tube. There is contrast opacification of the stomach and multiple loops of small bowel. The catheter tip is in the body of the stomach. There is no obvious leak. Impression: Unremarkable gastrostomy injection
[2017-06-07 12:00] VITALS: BP 162/106
--- NOTE | 2017-06-07 15:15 | General Progress Note ---
Assessment/Plan Assessment/Plan Assessment - Macrocytosis - Hypothyroid - Dysphagia, s/p GT change Recommendations - continue TF - GT care - check TFT in 1 mo Subjective Allergies: Coded Allergies: AUBREY INHIBITORS (Verified Allergy, Unknown, ANGIOEDEMA, 09/17/12) Subjective Above noted NAD tolerating TF Objective Last 24 Hour Vital Signs Date Time Temp Pulse Resp B/P (MAP) Pulse Ox O2 Delivery O2 Flow Rate FiO2 06/07/17 12:00 97.5 67 20 162/106 98 Room Air 06/07/17 08:00 97.3 65 20 135/79 100 Room Air 06/07/17 04:52 97.9 70 19 151/77 99 Room Air 06/07/17 00:45 98.0 64 18 150/81 98 Room Air 06/06/17 20:00 98.1 67 18 154/86 99 Room Air 06/06/17 16:00 97.4 74 20 157/64 93 Room Air Laboratory Tests 06/07/17 05:05: Vitamin B12 Level 806, Folate [Pending] Height (Feet): 5 Height (Inches): 3.00 Weight (Pounds): 140 Objective Debilitated WM Neck supple CTA RRR Abd soft ND GT in good position no edema WILLIS AMADO Jun 07, 2017 15:15
[2017-06-07] MEDS ORDERED: D5 1/2NS 1000ml IV ONE (15:44)
[2017-06-07 16:00] VITALS: BP 158/76
--- NOTE | 2017-06-08 | General Progress Note ---
Assessment/Plan Status: stable Assessment/Plan 1. Leukopenia is very likely related to meds v occult infection, has been low on prior admissions --> recommend to adminsiter neupogen if ANC < 1500 --> Monitor 2. Anemia 2/2 chronic disease- anemia w/u had been ordered --> b12, ferritin, folate, path smear pending --> Hemoglobin has been stable >10, blood transfusion not required. 3. Cellulitis of face on abx as per id team --> improd on this admission 4. Malfunctioning of the gastrostomy tube s/p replacement before --> Gi eval 5. Maxillary sinusitis Subjective Date patient seen: Jun 06, 2017 Constitutional: Denies: no symptoms, chills, diaphoresis, fever, malaise, weakness, other HEENT: Denies: no symptoms, eye pain, blurred vision, tearing, double vision, ear pain, ear discharge, nose pain, nose congestion, throat pain, throat swelling, mouth pain, mouth swelling, other Cardiovascular: Denies: no symptoms, chest pain, edema, irregular heart rate, lightheadedness, palpitations, syncope, other Respiratory: Denies: no symptoms, cough, orthopnea, shortness of breath, SOB with excertion, SOB at rest, sputum, stridor, wheezing, other Gastrointestinal/Abdominal: Denies: no symptoms, abdomen distended, abdominal pain, black stools, tarry stools, blood in stool, constipated, diarrhea, difficulty swallowing, nausea, poor appetite, poor fluid intake, rectal bleeding , vomiting, other Genitourinary: Denies: no symptoms, burning, discharge, frequency, flank pain, hematuria, incontinence, pain, urgency, other Hematologic/Lymphatic: Reports: anemia Allergies: Coded Allergies: AUBREY INHIBITORS (Verified Allergy, Unknown, ANGIOEDEMA, 09/17/12) Subjective No acute distress. No active bleeding. Afebrile. Objective Last 24 Hour Vital Signs Date Time Temp Pulse Resp B/P (MAP) Pulse Ox O2 Delivery O2 Flow Rate FiO2 06/07/17 16:00 97.5 63 20 158/76 99 Room Air 06/07/17 12:00 97.5 67 20 162/106 98 Room Air 06/07/17 08:00 97.3 65 20 135/79 100 Room Air 06/07/17 04:52 97.9 70 19 151/77 99 Room Air 06/07/17 00:45 98.0 64 18 150/81 98 Room Air 06/06/17 20:00 98.1 67 18 154/86 99 Room Air 06/06/17 16:00 97.4 74 20 157/64 93 Room Air 06/06/17 12:00 97.2 77 20 149/99 96 Room Air 06/06/17 08:00 98.4 69 18 124/73 94 Room Air 06/06/17 04:00 97.4 63 20 120/70 97 Room Air Last 24 Hour Vital Signs Date Time Temp Pulse Resp B/P (MAP) Pulse Ox O2 Delivery O2 Flow Rate FiO2 06/07/17 16:00 97.5 63 20 158/76 99 Room Air 06/07/17 12:00 97.5 67 20 162/106 98 Room Air 06/07/17 08:00 97.3 65 20 135/79 100 Room Air 06/07/17 04:52 97.9 70 19 151/77 99 Room Air 06/07/17 00:45 98.0 64 18 150/81 98 Room Air Labs Test 06/05/17 13:25 06/05/17 13:35 06/07/17 05:05 White Blood Count 4.5 K/UL (4.8-10.8) Red Blood Count 2.94 M/UL (4.70-6.10) Hemoglobin 10.1 G/DL (14.2-18.0) Hematocrit 31.2 % (42.0-52.0) Mean Corpuscular Volume 106 FL (80-99) Mean Corpuscular Hemoglobin 34.3 PG (27.0-31.0) Mean Corpuscular Hemoglobin Concent 32.2 G/DL (32.0-36.0) Red Cell Distribution Width 15.2 % (11.6-14.8) Platelet Count 196 K/UL (150-450) Mean Platelet Volume 9.0 FL (6.5-10.1) Neutrophils (%) (Auto) 70.2 % (45.0-75.0) Lymphocytes (%) (Auto) 13.3 % (20.0-45.0) Monocytes (%) (Auto) 11.3 % (1.0-10.0) Eosinophils (%) (Auto) 4.1 % (0.0-3.0) Basophils (%) (Auto) 1.1 % (0.0-2.0) Differential Total Cells Counted 100 Neutrophils % (Manual) 69 % (45-75) Lymphocytes % (Manual) 19 % (20-45) Monocytes % (Manual) 5 % (1-10) Eosinophils % (Manual) 6 % (0-3) Basophils % (Manual) 1 % (0-2) Band Neutrophils 0 % (0-8) Platelet Estimate Adequate Platelet Morphology Normal Polychromasia 1+ Anisocytosis 1+ Macrocytosis 2+ Sodium Level 137 mEQ/L (135-145) Potassium Level 4.7 mEQ/L (3.4-4.9) Chloride Level 97 mEQ/L (98-107) Carbon Dioxide Level 29 mEQ/L (20-30) Anion Gap 11 (5-15) Blood Urea Nitrogen 29 mg/dL (7-23) Creatinine 0.9 mg/dL (0.7-1.2) Estimat Glomerular Filtration Rate mL/min (>60) Glucose Level 84 mg/dL (74-106) Calcium Level 9.2 mg/dL (8.6-10.2) Total Bilirubin 0.5 mg/dL (0.0-1.2) Aspartate Amino Transf (AST/SGOT) 23 U/L (5-40) Alanine Aminotransferase (ALT/SGPT) 12 U/L (3-41) Alkaline Phosphatase 77 U/L (40-129) Total Creatine Kinase 46 U/L (38-174) Creatine Kinase MB 1.7 ng/mL (< 6.7) Creatine Kinase MB Relative Index 3.6 Troponin I < 0.30 ng/mL (<=0.30) Total Protein 7.2 g/dL (6.6-8.7) Albumin 3.5 g/dL (3.5-5.2) Globulin 3.7 g/dL Albumin/Globulin Ratio 0.9 (1.0-2.7) Lipase 24 U/L (< 60) Reticulocyte Count 1.8 % (0.0-2.0) Haptoglobin 197 mg/dL (30-200) Iron Level 44 ug/dL (59-158) Total Iron Binding Capacity 260 ug/dL (250-400) Percent Iron Saturation 17 % (15-50) Unsaturated Iron Binding 216 ug/dL (112-346) Ferritin 87 ng/mL (10-230) Lactate Dehydrogenase 187 U/L (135-230) Thyroid Stimulating Hormone (TSH) 58.020 uIU/mL (0.300-4.500) Vitamin B12 Level 806 pg/mL (211-946) Labs Test 06/07/17 05:05 Vitamin B12 Level 806 pg/mL (211-946) Laboratory Tests 06/07/17 05:05: Vitamin B12 Level 806, Folate [Pending] Height (Feet): 5 Height (Inches): 3.00 Weight (Pounds): 140 General Appearance: no apparent distress Neck: non-tender Cardiovascular: normal rate, regular rhythm Abdomen: normal bowel sounds, non tender, soft Extremities: other Neurologic: alert SUE COREAS Jun 08, 2017 00:00
--- NOTE | 2017-06-08 00:01 | General Progress Note ---
Assessment/Plan Status: stable Assessment/Plan 1. Leukopenia is very likely related to meds v occult infection, has been low on prior admissions --> recommend to adminsiter neupogen if ANC < 1500 --> Monitor 2. Anemia 2/2 chronic disease- anemia w/u had been ordered --> b12, ferritin, folate, path smear pending --> Hemoglobin has been stable >10, --> blood transfusion not required unless symptomatic 3. Cellulitis of face on abx as per id team --> improd on this admission 4. Malfunctioning of the gastrostomy tube s/p replacement before --> Gi eval 5. Maxillary sinusitis Subjective Date patient seen: Jun 07, 2017 Constitutional: Denies: no symptoms, chills, diaphoresis, fever, malaise, weakness, other HEENT: Denies: no symptoms, eye pain, blurred vision, tearing, double vision, ear pain, ear discharge, nose pain, nose congestion, throat pain, throat swelling, mouth pain, mouth swelling, other Cardiovascular: Denies: no symptoms, chest pain, edema, irregular heart rate, lightheadedness, palpitations, syncope, other Respiratory: Denies: no symptoms, cough, orthopnea, shortness of breath, SOB with excertion, SOB at rest, sputum, stridor, wheezing, other Gastrointestinal/Abdominal: Denies: no symptoms, abdomen distended, abdominal pain, black stools, tarry stools, blood in stool, constipated, diarrhea, difficulty swallowing, nausea, poor appetite, poor fluid intake, rectal bleeding , vomiting, other Genitourinary: Denies: no symptoms, burning, discharge, frequency, flank pain, hematuria, incontinence, pain, urgency, other Endocrine: Denies: no symptoms, excessive sweating, flushing, intolerance to cold, intolerance to heat, increased hunger, increased thirst, increased urine, unexplained weight gain, unexplained weight loss, other Hematologic/Lymphatic: Reports: anemia Allergies: Coded Allergies: AUBREY INHIBITORS (Verified Allergy, Unknown, ANGIOEDEMA, 09/17/12) Subjective NAD, no active bleeding, no acute distress. Afebrile. Patient in bed. Objective Last 24 Hour Vital Signs Date Time Temp Pulse Resp B/P (MAP) Pulse Ox O2 Delivery O2 Flow Rate FiO2 06/07/17 16:00 97.5 63 20 158/76 99 Room Air 8/27/17 12:00 97.5 67 20 162/106 98 Room Air 06/07/17 08:00 97.3 65 20 135/79 100 Room Air 06/07/17 04:52 97.9 70 19 151/77 99 Room Air 06/07/17 00:45 98.0 64 18 150/81 98 Room Air Labs Test 06/05/17 13:25 06/05/17 13:35 06/07/17 05:05 White Blood Count 4.5 K/UL (4.8-10.8) Red Blood Count 2.94 M/UL (4.70-6.10) Hemoglobin 10.1 G/DL (14.2-18.0) Hematocrit 31.2 % (42.0-52.0) Mean Corpuscular Volume 106 FL (80-99) Mean Corpuscular Hemoglobin 34.3 PG (27.0-31.0) Mean Corpuscular Hemoglobin Concent 32.2 G/DL (32.0-36.0) Red Cell Distribution Width 15.2 % (11.6-14.8) Platelet Count 196 K/UL (150-450) Mean Platelet Volume 9.0 FL (6.5-10.1) Neutrophils (%) (Auto) 70.2 % (45.0-75.0) Lymphocytes (%) (Auto) 13.3 % (20.0-45.0) Monocytes (%) (Auto) 11.3 % (1.0-10.0) Eosinophils (%) (Auto) 4.1 % (0.0-3.0) Basophils (%) (Auto) 1.1 % (0.0-2.0) Differential Total Cells Counted 100 Neutrophils % (Manual) 69 % (45-75) Lymphocytes % (Manual) 19 % (20-45) Monocytes % (Manual) 5 % (1-10) Eosinophils % (Manual) 6 % (0-3) Basophils % (Manual) 1 % (0-2) Band Neutrophils 0 % (0-8) Platelet Estimate Adequate Platelet Morphology Normal Polychromasia 1+ Anisocytosis 1+ Macrocytosis 2+ Sodium Level 137 mEQ/L (135-145) Potassium Level 4.7 mEQ/L (3.4-4.9) Chloride Level 97 mEQ/L (98-107) Carbon Dioxide Level 29 mEQ/L (20-30) Anion Gap 11 (5-15) Blood Urea Nitrogen 29 mg/dL (7-23) Creatinine 0.9 mg/dL (0.7-1.2) Estimat Glomerular Filtration Rate mL/min (>60) Glucose Level 84 mg/dL (74-106) Calcium Level 9.2 mg/dL (8.6-10.2) Total Bilirubin 0.5 mg/dL (0.0-1.2) Aspartate Amino Transf (AST/SGOT) 23 U/L (5-40) Alanine Aminotransferase (ALT/SGPT) 12 U/L (3-41) Alkaline Phosphatase 77 U/L (40-129) Total Creatine Kinase 46 U/L (38-174) Creatine Kinase MB 1.7 ng/mL (< 6.7) Creatine Kinase MB Relative Index 3.6 Troponin I < 0.30 ng/mL (<=0.30) Total Protein 7.2 g/dL (6.6-8.7) Albumin 3.5 g/dL (3.5-5.2) Globulin 3.7 g/dL Albumin/Globulin Ratio 0.9 (1.0-2.7) Lipase 24 U/L (< 60) Reticulocyte Count 1.8 % (0.0-2.0) Haptoglobin 197 mg/dL (30-200) Iron Level 44 ug/dL (59-158) Total Iron Binding Capacity 260 ug/dL (250-400) Percent Iron Saturation 17 % (15-50) Unsaturated Iron Binding 216 ug/dL (112-346) Ferritin 87 ng/mL (10-230) Lactate Dehydrogenase 187 U/L (135-230) Thyroid Stimulating Hormone (TSH) 58.020 uIU/mL (0.300-4.500) Vitamin B12 Level 806 pg/mL (211-946) Laboratory Tests 06/07/17 05:05: Vitamin B12 Level 806, Folate [Pending] Height (Feet): 5 Height (Inches): 3.00 Weight (Pounds): 140 General Appearance: no apparent distress Neck: non-tender, supple Cardiovascular: normal rate, regular rhythm Respiratory/Chest: no respiratory distress Abdomen: non tender, soft Neurologic: alert Skin: warm/dry SUE COREAS Jun 08, 2017 00:01
--- NOTE | 2017-06-08 08:30 | Consultation ---
DATE OF CONSULTATION: 06/06/2017 GASTROENTEROLOGY CONSULTATION CHIEF COMPLAINT: I was asked to see this patient by Dr. Laina Pereira for evaluation of abnormal CBC and also dysfunctional gastrostomy tube. HISTORY OF PRESENT ILLNESS: The patient is an unfortunate 76-year-old white man with multiple medical problems. He was brought into the hospital due to gastrostomy tube fracture. The patient also was noted to have a significantly elevated mean corpuscular volume on his CBC. The patient has had an injury and he has difficulty speaking. It is hard to comprehend with language. Most information is only available from the chart. The patient's gastrostomy tube was fractured at the tip and leaking and cannot be used. There has been no reports of vomiting or diarrhea. The patient's TSH level from this morning is markedly elevated. PAST MEDICAL HISTORY: History of altered mental status, history of dementia, respiratory insufficiency, history of stroke, dysphagia status post gastrostomy tube placement, history of diabetes, hypertension, history of sepsis, thyroid mass, recurrent maxillary sinusitis as well as facial sinusitis. ALLERGIES: AUBREY inhibitors. SOCIAL HISTORY: The patient is from a residential and has had no recent history of smoking or drinking. FAMILY HISTORY: Not available and noncontributory. REVIEW OF SYSTEMS: Otherwise negative. PHYSICAL EXAMINATION: GENERAL: The patient is a pleasant white man, seen in the room with the nurse at bedside, in no distress. HEENT: Normocephalic. Oropharynx showed poor dentition. NECK: Supple. CHEST: Reveals coarse breath sounds. CARDIOVASCULAR: Revealed a regular rate. ABDOMEN: Soft with good bowel sounds. Gastrostomy tube was examined. It appeared to be fractured in the tip. It is a 16-Khmer catheter, which was removed at bedside and the area cleaned. Subsequently, it was replaced with a 18-Khmer balloon tip catheter when the position verified with aspiration technique. EXTREMITIES: Revealed no edema. LABORATORY DATA: Noted. Assessment: This patient has a gastrostomy catheter, which was replaced at bedside with one size larger. It was fracture and unusable, but the current catheter is fully functional and can be used immediately for feeding and medications. The gastrostomy tube care will be reviewed with the nursing staff. In addition, there is some degree of macrocytic anemia. Differential diagnosis of this would include vitamin B12 deficient as well folate deficiency. However, more notably there is also the possibility of hypothyroidism resulting in the same red cell indices. The patient's thyroid level should be gradually replaced and starting with a smaller dose of thyroid at 25 mcg daily, which can be advanced in few weeks as necessary until appropriate dose, which has been achieved. The red cell indices can also be followed up with the same regimen and should eventually return to normal. If not, the bone marrow evaluation may be necessary. RECOMMENDATIONS: Per above discussion and per orders written in the chart. Thank you for asking me to participate in the care of this patient. Ruel Macdonald M.D. DR: JAZLYN JOB#: [id number] CC: [email or web address]
--- NOTE | 2017-06-08 11:18 | Diagnostic Imaging Report ---
APPROVED REPORT CPT Code: 83995 Present Symptoms Lower Extremity Pain: Comments: Hx edema, CHF, HTN, Pacemaker. Prior venous duplex 05/01/2017 revealed right chronic DVT in the distal superficial femoral vein (large anterior collateral), and the right popliteal vein (posterior collateral). The left lower extremity was within normal limits. Past History DVT :Right RIGHT LEG: Venous imaging reveals recanalized chronic thrombus in the distal superficial femoral and popliteal vein with a collateral vein noted anterior to the distal superficial femoral vein and another posterior to the popliteal vein. Imaging reveals patency of the common femoral, proximal and mid superficial femoral and calf veins. The greater saphenous vein is also within normal limits. Doppler indicates normal spontaneous flow within these segments. LEFT LEG: Venous imaging reveals a patent deep venous system. There is no evidence of thrombus within the femoral, popliteal or tibial segments. The greater saphenous vein is also within normal limits. Doppler indicates normal spontaneous flow within these segments. There is no evidence of acute DVT.
[2017-06-09] MEDS ORDERED: LEVOTHYROXINE25 MCG ORAL (09:28)
--- NOTE | 2017-06-09 09:35 | Discharge Summary ---
Discharge Summary Hospital Course Date of Admission Jun 05, 2017 at 13:29 Date of Discharge Jun 07, 2017 at 15:45 Admitting Diagnosis gastric tube malfunction HPI Darek Garcia is a 76 year old male who was admitted on Jun 05, 2017 at 13: 29 for Gastric Tube Malfunction Hospital Course dc summary #[id number] Discharge Medications New Medications: Levothyroxine Sodium* (Levothyroxine Sodium*) 25 Mcg Tablet 25 MCG ORAL DAILY, #30 TAB Take in the morning on an empty stomach, at least 30 minutes before food. Continued Medications: Acetaminophen* (Acetaminophen 325MG Tablet*) 325 Mg Tablet 650 MG GT Q4H PRN for MILD PAIN, NTE 3G/24HR Amiodarone Hcl* (Pacerone*) 100 Mg Tablet 100 MG GT DAILY for HOLD IF SBP<110 OR DBP<60 Amlodipine Besylate* (Amlodipine Besylate*) 5 Mg Tablet 5 MG GT DAILY for FOR HTN, HOLD IF SBP<110 Apixaban (Eliquis) 2.5 Mg Tablet 2.5 MG GT BID for FOR A-FIB Bisacodyl (Dulcolax) 10 Mg Supp.rect 10 MG RC DAILY PRN for IF MOM IS INEFFECTIVE Bupropion Hcl* (Bupropion Hcl*) 75 Mg Tablet 75 MG GT BID for FOR DEPRESSION Clonidine Hcl* (Catapres*) 0.1 Mg Tablet 0.1 MG GT EVERY 6 HOURS PRN for FOR SBP >160 Clonidine Hcl* (Catapres*) 0.1 Mg Tablet 0.1 MG GT DAILY for HOLD FOR SBP <110 Cranberry Extract (Cranberry Concentrate) 500 Mg Capsule 405 MG GT DAILY for FOR UTI PPX Esomeprazole Magnesium (Nexium) 40 Mg Capsule.dr 40 MG GT DAILY for BEFORE BREAKFAST Ferrous Sulfate (Ferrous Sulfate) 220 Mg/5 Ml Solution 325 MG GT DAILY for FOR ANEMIA Finasteride* (Proscar*) 5 Mg Tablet 5 MG GT DAILY for FOR BPH Fluorouracil (Fluorouracil) 40 Gm Cream..g. 40 GM TP DAILY for FACE AND SCALP LESIONS Furosemide* (Lasix*) 20 Mg Tablet 20 MG GT DAILY for FOR CHF Magnesium Hydroxide* (Milk Of Magnesia*) 400 Mg/5 Ml Oral.susp 30 ML GT PRN for Constipation, ML Magnesium Hydroxide* (Milk Of Magnesia*) 400 Mg/5 Ml Oral.susp 30 ML GT DAILY PRN for Constipation Metformin Hcl* (Metformin Hcl*) 500 Mg Tablet 500 MG GT TWICE A DAY for WITH BREAKFAST AND DINNER Metoprolol Tartrate* (Metoprolol Tartrate*) 25 Mg Tablet 12.5 MG GT BID for HOLD FOR SBP <110 Multivitamin Liquid* (Multi-Delyn*) 237 Ml Liquid 5 ML GT DAILY for Constipation Potassium Chloride (Potassium Chloride) 20 Meq/15 Ml Liquid 10 MEQ GT DAILY Valproate Sodium (Valproic Acid) 250 Mg/5 Ml Solution 250 MG GT TID for FOR SEIZURE D/O Discharge Condition Upon Discharge: stable Discharge Disposition Patient was discharged to SNF/Subacute Facility(03) Discharge Diagnoses: Discharge Instructions Discharge Instructions Special Instructions I have been assigned to complete a D/C Summary on this account. I was not involved in the patient management Lyndsay Bishop NP (Vanchtein) Jun 09, 2017 09:35
--- NOTE | 2017-06-10 03:15 | Discharge Summary 2 SIG ---
DATE OF ADMISSION: 06/05/2017 DATE OF DISCHARGE: 06/07/2017 REASON FOR ADMISSION: 76-year-old male with history of COPD, CVA, seizure disorder, dysphagia, G-tube, and pacemaker, presented to the emergency room from [facility] where he resides for G-tube replacement. Nursing staff noted that G-tube was malfunctioning due to the tear. Workup in the emergency room revealed no leukocytosis. Stable vital signs. Hemoglobin -10.1, hematocrit -31.2 with BUN- 29, and MCV - 106. The patient was admitted for further management. ADMITTING DIAGNOSES: 1. Gastrostomy tube malfunctioning. 2. Macrocytic anemia. 3. Dehydration. HOSPITAL COURSE: The patient was admitted. The patient kept NPO. The patient was on the IV fluids. GI consult was requested. GI specialist seen and evaluated the patient and replaced G-tube at the bedside. Prior G-tube was fractured and unusable and it was replaced with G-tube with one size larger. According to GI specialist, the G-tube was fully functional and could be used immediately for medications and feeding. The patient was started on tube feeding. Patient was able to tolerate tube feeding, no residuals. Strict aspiration, reflux precautions were maintained. G-tube site care provided. Due to the macrocytic anemia, B12 and folate levels were checked. However, there was also possibility of hypothyroidism resulting in the same red cell indices. Subsequently, TSH was checked and revealed elevated TSH of 58 with a stable B12 and folate levels. The patient was started on thyroid replacement, small dose 25 mcg. Repeat thyroid function tests in one month in [facility] [place] and optimize dose of thyroid replacement further as needed. Venous duplex bilateral lower extremities revealed recanalized chronic thrombus in the right lower extremity, superficial femoral and popliteal veins, but no acute DVT. Left lower extremity , patent venous system. Mesh Worker followed. Per explosive ordnance manager, the patient had anemia of chronic disease and macrocytic anemia secondary to hypothyroidism. The patient was stable for discharge. DISCHARGE DIAGNOSES: 1. Gastrostomy tube malfunctioning, status post replacement. 2. Dehydration. 3. Macrocytic anemia 4. Newly diagnosed hypothyroidism. 5. Anemia of chronic disease. DISCHARGE MEDICATIONS: See medication reconciliation list. DISCHARGE INSTRUCTIONS: The patient was discharged to [facility] [place] FOLLOWUP: Follow up with medical doctor at the facility. Laina Pereira M.D. I have been assigned to dictate discharge summary on this account and I was not involved in the patient's management. Lyndsay Bishop N.P. (Vanchtein) DR: ANASTASIA JOB#: [id number] CC: SANDEEP
== END 2017-06-07 15:45 | DRG 394 ==
LOC: EDBD 12:37 → EDUNIT# 12:37 → EMR 13:10 → EDBEDREQ 13:20 → 4E 13:29 → EDBEDREQ 13:33
PROC: 0D20XUZ Change Feeding Device in Upper Intestinal Tract, External Approach (ICD-10-PCS; principal; 2017-06-05)
DX: K94.23 Gastrostomy malfunction (principal); F20.0 Paranoid schizophrenia; J44.9 Chronic obstructive pulmonary disease, unspecified; I48.91 Unspecified atrial fibrillation; L03.211 Cellulitis of face; R13.10 Dysphagia, unspecified; E86.0 Dehydration; I10 Essential (primary) hypertension; E03.9 Hypothyroidism, unspecified; E11.9 Type 2 diabetes mellitus without complications; Y83.3 Surgical operation with formation of external stoma as the cause of abnormal reaction of the patient, or of later complication, without mention of misadventure at the time of the procedure; Z85.89 Personal history of malignant neoplasm of other organs and systems; K21.9 Gastro-esophageal reflux disease without esophagitis; N40.0 Benign prostatic hyperplasia without lower urinary tract symptoms; Z88.8 Allergy status to other drugs, medicaments and biological substances; Z87.891 Personal history of nicotine dependence; Z95.0 Presence of cardiac pacemaker; D50.9 Iron deficiency anemia, unspecified; D63.8 Anemia in other chronic diseases classified elsewhere; Z92.3 Personal history of irradiation; Z86.73 Personal history of transient ischemic attack (TIA), and cerebral infarction without residual deficits; J32.0 Chronic maxillary sinusitis
CPT/HCPCS: 36415; 74000; 80053; 82550; 82553; 82607; 82728; 82746; 82962; 83010; 83540; 83550; 83615; 83690; 84238; 84443; 84484; 85007; 85025; 85044; 85060; 93970; 99285

== ENCOUNTER 2017-10-12 13:46 | Inpatient (IN) | payer MEDICARE, MEDICAID ==
[~2017-10-12] VITALS: Ht 170.2 cm; Wt 65.8 kg
[~2017-10-12 13:46] MED LIST changes: +LEVOTHYROXINE25 MCG ORAL
[2017-10-12] MEDS ORDERED: Ampicillin/Sulbactam Sod 3 GM in NS 110 ML IV STA (14:33)
[2017-10-12] MEDS ORDERED: Vancomycin 1 GM in NS 275 ML IV ONE (14:45)
--- NOTE | 2017-10-12 14:47 | Emergency Room Report ---
History of Present Illness General Chief Complaint: Skin Rash/Abscess Source: Patient Present Illness HPI 77 year-old male sent for left lower leg "abscess" for 2-3 weeks duration after patient accidentally hit a metal pole to left leg. Denies fever/chills. Denies open wound. HPI limited as patient is unintelligible at baseline Allergies: Coded Allergies: AUBREY INHIBITORS (Verified Allergy, Unknown, ANGIOEDEMA, 09/17/12) Patient History Past Medical History: see triage record, old chart reviewed Past Surgical History: none Pertinent Family History: none Social History: Denies: smoking, alcohol use, drug use Immunizations: UTD Reviewed Nursing Documentation: PMH: Agreed, PSxH: Agreed Nursing Documentation-PMH Hx Cardiac Problems: Yes Hx Hypertension: Yes Hx Pacemaker: Yes Hx Asthma: Yes Hx COPD: Yes Hx Diabetes: Yes Hx Cancer: No Hx Gastrointestinal Problems: Yes Hx Dialysis: No Hx Neurological Problems: Yes Hx Cerebrovascular Accident: Yes Hx Seizures: Yes Hx Aphasia: Yes Hx Dysphasia: Yes Hx Weakness: Yes Hx Fatigue: Yes Review of Systems All Other Systems: negative except mentioned in HPI Physical Exam Vital Signs Date Time Temp Pulse Resp B/P (MAP) Pulse Ox O2 Delivery O2 Flow Rate FiO2 10/12/17 13:42 98.1 60 20 103/56 98 Room Air Sp02 EP Interpretation: reviewed, normal General Appearance: normal inspection, well appearing, no apparent distress, alert, GCS 15, non-toxic Head: normocephalic, atraumatic Eyes: bilateral eye PERRL, bilateral eye EOMI ENT: normal ENT inspection, hearing grossly normal, normal pharynx, no angioedema, normal voice, TMs + canals normal, uvula midline, moist mucus membranes Neck: normal inspection, full range of motion, supple, thyroid normal, no meningismus, no bony tend Respiratory: normal inspection, lungs clear, normal breath sounds, no rhonchi, no respiratory distress, no retraction, no accessory muscle use, no wheezing, speaking full sentences Cardiovascular #1: regular rate, rhythm, no edema, no JVD, normal capillary refill Gastrointestinal: normal inspection, normal bowel sounds, non tender, soft, no mass, no peritonitis, non-distended, no guarding, no hernia, no pulsatile mass Genitourinary: no CVA tenderness Musculoskeletal: normal inspection, back normal, normal range of motion, no calf tenderness, pelvis stable, April's Sign negative, other - left lower extremity: middle of leg, lateral aspect: 3cm in hematoma with abrasion. Palpable warmth one leg. No crepitus Neurologic: normal inspection, alert, oriented x3, responsive, chief gauger III-XII nml as tested, motor strength/tone normal, cerebellar normal, normal gait, speech normal Psychiatric: normal inspection, judgement/insight normal, mood/affect normal, no suicidal/homicidal ideation, no delusions Skin: normal inspection, normal color, no rash Lymphatic: normal inspection, no adenopathy Medical Decision Making Diagnostic Impression: Primary Impression: Hematoma Additional Impression: Cellulitis Qualified Codes: L03.116 - Cellulitis of left lower limb ER Course Left lower leg hematoma, traumatic 3 weeks in duration, possibly now with associated cellulitis Empiric antibiotics given, blood cultures pending CT CT shows subcutaneous hematoma No neck fasc or abscess Labs otherwise unremarkable, no leukocytosis or metabolic abnormality endorsed to Dr. Granados as PMD med/surg admit 6opm Rhythm Strip Diag. Results EP Interpretation: yes Rate: 60 Rhythm: NSR, no PVC's, no ectopy Last Vital Signs Date Time Temp Pulse Resp B/P (MAP) Pulse Ox O2 Delivery O2 Flow Rate FiO2 10/12/17 13:42 98.1 60 20 103/56 98 Room Air Status: improved Disposition: ADMITTED INPATIENT Condition: Serious YOAV CHRISTIE M.D. Oct 12, 2017 14:46
[2017-10-12] MEDS ORDERED: Unasyn 3gm Inj ONE (15:10)
[2017-10-12 15:30] LABS: BASOPHILS % (AUTO) 1.4 % (0.0-2.0); EOSINOPHILS % (AUTO) 3.5 % (0.0-3.0); HEMATOCRIT 32.2 % (42.0-52.0); HEMOGLOBIN 10.2 G/DL (14.2-18.0); LYMPHOCYTES % (AUTO) 13.4 % (20.0-45.0); MEAN CORPUSCULAR VOLUME 100 FL (80-99); MONOCYTES % (AUTO) 15.4 % (1.0-10.0); NEUTROPHILS % (AUTO) 66.3 % (45.0-75.0); PLATELET COUNT 272 K/UL (150-450); RED BLOOD COUNT 3.23 M/UL (4.70-6.10); RED CELL DISTRIBUTION WIDTH 13.6 % (11.6-14.8); WHITE BLOOD COUNT 5.8 K/UL (4.8-10.8)
[2017-10-12 15:33] LABS: ANION GAP 6 mmol/L (5-15); BLOOD UREA NITROGEN 23 mg/dL (7-18); CALCIUM 8.1 MG/DL (8.5-10.1); CARBON DIOXIDE 31 MMOL/L (21-32); CHLORIDE 94 MMOL/L (98-107); CREATININE 1.2 MG/DL (0.55-1.30); SODIUM 131 MMOL/L (136-145)
[2017-10-12 15:37] LABS: ALANINE AMINOTRANSFERASE 14 U/L (12-78); ALBUMIN 2.8 G/DL (3.4-5.0); ALBUMIN/GLOBULIN RATIO 0.6 (1.0-2.7); ALKALINE PHOSPHATASE 79 U/L (46-116); ASPARTATE AMINO TRANSFERASE 23 U/L (15-37); BILIRUBIN,TOTAL 0.3 MG/DL (0.2-1.0)
[2017-10-12] MEDS ORDERED: Vancomycin 1 GM in D5W 275 ML IVPB STA (15:47)
[2017-10-12] MEDS ORDERED: Vancomycin 1gm inj IVPB ONE (16:30)
[2017-10-12 17:16] VITALS: BP 142/66
[2017-10-12] MEDS ORDERED: BUPROPION XL300 MG GT (17:30)
[2017-10-12] MEDS ORDERED: BUPROPION HCL75 MG GT (17:31)
[2017-10-12] MEDS ORDERED: CRANBERRY405 M1 GT (17:36)
[2017-10-12] MEDS ORDERED: FERROUS SU220 MG/51 GT (17:39)
[2017-10-12] MEDS ORDERED: HEPARIN SO5000 UNIT2 SUBQ (17:43)
[2017-10-12] MEDS ORDERED: LEVOTHYROXINE100 MCG GT (17:44)
[2017-10-12] MEDS ORDERED: VALPROIC A250 MG/5 M GT (17:49)
[2017-10-12 18:26] VITALS: BP 130/67
[2017-10-12 20:00] VITALS: BP 129/75
[2017-10-12] MEDS ORDERED: Milk of Magnesia 30ml Ud GT PRN (20:15)
[2017-10-12] MEDS: BuPROPion 75mg Tab GT SCH (21:50)
[2017-10-12] MEDS: Pantoprazole Inj IVP SCH (21:51)
[2017-10-12] MEDS: Valproic Acid 250mg/5ml Liquid GT SCH (21:51)
[2017-10-12] MEDS ORDERED: Heparin 5000 units/ml inj SUBQ SCH (22:00)
--- NOTE | 2017-10-12 22:15 | History and Physical Report ---
DATE OF ADMISSION: 10/12/2017 HISTORY OF PRESENT ILLNESS: The patient is a poor historian, has schizophrenia, and psychiatric patient, comes here because of enlarging hematoma in the lower extremity leg that is getting bigger. The hematoma is getting bigger. He has a history of chronic DVT. He is on anticoagulant. The patient is admitted for a large hematoma that was shown on CT of the lower extremity. The patient is also admitted for cellulitis in the overlying skin area on the lower extremity as well. He does have leg pain. Denies nausea, vomiting, diarrhea. Denies shortness of breath. Denies cough. Denies fever or chills. PAST MEDICAL HISTORY: History of recurrent DVT, history of ENT cancer, history of schizophrenia, history of CVA, history of dysphagia, history of thyroid mass, history of sinusitis, history of hypothyroidism, history of ileus, history of SVT, history of GERD, history of BPH and iron-deficiency anemia, history of NIDDM and mood disorder as well and arrhythmia. PAST SURGICAL HISTORY: ENT surgery to remove the cancer as well as PEG. ALLERGIES: AUBREY inhibitors. MEDICATIONS: Eliquis, amiodarone, amlodipine, clonidine, finasteride, ferrous sulfate, Nexium, metformin, potassium, Depakote, and metoprolol. SOCIAL HISTORY: Denies history of smoking. Denies history of alcohol or illicit drugs. He lives in a long-term. REVIEW OF SYSTEMS: HEENT: Denies headaches. RESPIRATORY: Denies shortness of breath. Denies cough. CARDIOVASCULAR: Denies chest pain. GASTROINTESTINAL: Denies nausea, vomiting, or diarrhea. EXTREMITIES: Reports leg pain. CENTRAL NERVOUS SYSTEM: Denies change in vision or speech pattern. PHYSICAL EXAMINATION: VITAL SIGNS: Temperature 98.1, pulse is 60, and blood pressure 103/56. HEENT: PERRLA. NECK: Supple. No lymphadenopathy. LUNGS: Clear to auscultation. GASTROINTESTINAL: Soft, nontender, and nondistended. No organomegaly. ABDOMEN: Soft. Positive bowel sounds. No organomegaly. EXTREMITIES: He does have hematoma in the lower extremity as well as erythema in the lower extremity. It is warm to touch. The patient is in a wheelchair. LABORATORY DATA: White count is 5.8. Sodium 131, potassium 4, BUN of 23, creatinine 1.2, and glucose of 97. ASSESSMENT AND PLAN: 1. Hematoma in the lower extremity. 2. Cellulitis of the lower extremity. 3. Chronic deep venous thrombosis. 4. I have asked Dr. Huber, Dr. Elias, and Dr. Granger to see the patient for the hematoma treatment as well as for the treatment of the cellulitis. Laina Pereira M.D. DR: ALEXA JOB#: [id number] CC:
[2017-10-13] VITALS: BP 124/77
[2017-10-13 04:00] VITALS: BP 118/71
[2017-10-13 08:00] VITALS: BP 114/60
[2017-10-13] MEDS: Pantoprazole Inj IVP SCH (08:49)
[2017-10-13] MEDS: Valproic Acid 250mg/5ml Liquid GT SCH ×2 (08:50→20:45)
[2017-10-13] MEDS: Amiodarone 200mg tab GT SCH (08:50)
[2017-10-13] MEDS: Eliquis 2.5mg tablet GT SCH ×2 (08:50→17:13)
[2017-10-13] MEDS: Ferrous Sulfate 300 MG/5 ML UDC GT SCH (08:51)
[2017-10-13] MEDS ORDERED: metFORMIN 500mg tab GT SCH (09:00)
[2017-10-13] MEDS: Metoprolol 25mg tab GT SCH ×2 (09:00→17:13)
[2017-10-13 12:00] VITALS: BP 115/58
[2017-10-13] MEDS ORDERED: Vancomycin 1250mg/D5W 250ml IVPB ONE (13:00)
--- NOTE | 2017-10-13 15:33 | General Progress Note ---
Progress Note Progress Note Dictated consult to follow Patient seen and examined Small left pretibial anterior leg small hematoma ? traumatic Hx of leg dvts on Eliquis No leg edema Feet warm well perfused with intact pulses Rec Repeat leg arterial venous duplex CT angio abd to leg run off Leg elevation and acewrap Will follow imaging results DESMOND SILVERMAN Oct 13, 2017 15:33
[2017-10-13 16:00] VITALS: BP 159/84
--- NOTE | 2017-10-13 16:00 | Diagnostic Imaging Report ---
Indication: Left lower extremity pain/cellulitis/abscess Technique: Noncontrast CT of the left lower extremity was performed utilizing automated exposure control with axial, coronal and sagittal reformats. Comparison: None Findings: There is no acute fracture or dislocation. Imaged knee and ankle joints are intact. There is subcutaneous tissue reticulation/edema, most pronounced in the lower leg. Within the soft tissues of the anterolateral upper leg there is a heterogeneously attenuating lesion measuring 3.9 cm AP by 1.7 cm transverse by 3.1 cm craniocaudal (series 5 image #47; series 9 image #22). This may represent hematoma or soft tissue lesion, with abscess thought less likely. No radiopaque foreign body seen. No evidence of subcutaneous gas. There is extensive atherosclerotic calcification of the vasculature of the leg. No aneurysm appreciated. Impression: Extensive soft tissue edema in the leg with mild skin thickening. Findings are consistent with given history of cellulitis. 2.9 cm lesion in the anterolateral lateral upper leg which may represent a small hematoma versus soft tissue lesion, abscess thought less likely but not entirely excluded. Consider ultrasound for further evaluation or direct sampling. No acute fracture or dislocation.
--- NOTE | 2017-10-13 16:15 | Consultation ---
DATE OF CONSULTATION: 10/13/2017 INFECTIOUS DISEASES CONSULTATION This consultation has been done on behalf of Dr. Myles Zuluaga. REFERRING PHYSICIAN: Laina Pereira M.D. HISTORY OF PRESENT ILLNESS: This is a 77-year-old gentleman with history of hypertension, pacemaker placement, diabetes, and chronic obstructive pulmonary disease, who came in after he fell on a metal pole, which hurt his left leg. There is a concern for abscess in his left leg and cellulitis and an Infectious Diseases consultation has been obtained for antibiotics. A CT done showed subcutaneous hematoma. PAST MEDICAL HISTORY: 1. History of hypertension. 2. Status post pacemaker placement. 3. History of asthma. 4. History of COPD. 5. Diabetes. 6. History of CVA. 7. History of seizures. MEDICATIONS: As an inpatient, the patient is on amiodarone, amlodipine, Eliquis, clonidine, Lasix, Synthroid, Glucophage, metoprolol, ferrous sulfate, Proscar, Depakene, Protonix, Wellbutrin, Tylenol, clonidine, and milk of magnesia. ALLERGIES: To AUBREY inhibitors noted. SOCIAL HISTORY: Unknown. FAMILY HISTORY: Unknown. REVIEW OF SYSTEMS: Unable to obtain currently. PHYSICAL EXAMINATION: VITAL SIGNS: Temperature of 98, T-max of 98.2, pulse of 62, respiratory rate of 18, blood pressure 116/60, and O2 saturation of 96%. HEENT: Pupils equally reactive to light and accommodation. Mouth appears clean without thrush. NECK: Supple. No adenopathy. No JVD. CARDIOVASCULAR: Regular rate and rhythm. No murmurs. LUNGS: Clear to auscultation bilaterally. No crackles. No wheezes. ABDOMEN: Soft and nontender. No organomegaly. EXTREMITIES: No cyanosis, no clubbing, no edema. Left leg swelling noted on the lateral aspect of the upper leg with erythema over it. LABORATORY AND DIAGNOSTIC DATA: White count 5.8, hemoglobin 10.2, hematocrit 32.2, MCV 100, and platelet count of 272,000 with neutrophils of 66%. Sodium 131, potassium 4, chloride 94, bicarb 31, BUN 23, creatinine 1.2, glucose 97, and calcium 8.1. Total bilirubin 0.3. AST 23, ALT 14, and alkaline phosphatase 79. Total protein 7.6. Albumin 2.8. CT of the legs consistent with subcutaneous hematoma. ASSESSMENT: This is a 77-year-old gentleman with history of chronic obstructive pulmonary disease, diabetes, and hypertension, who comes in after hitting a metal pole accidentally in his left leg. CT consistent with hematoma. There is also overlying cellulitis. PLAN: 1. We will start the patient on IV vancomycin. We would also suggest a surgical evaluation for possible aspiration. 2. We will follow up cultures. I would like to thank, Dr. Laina Pereira, for this consultation. Meenakshi Jacob M.D. DR: SILVERIO JOB#: [id number] CC: Laina Pereira M.D.; Fax#: [phone] MYLES ZULUAGA M.D. ; FAX#: [phone]
--- NOTE | 2017-10-13 16:52 | Cardiology Report ---
APPROVED REPORT EXAM: Two-dimensional and M-mode echocardiogram with Doppler and color Doppler. INDICATION Congestive Heart Failure M-Mode DIMENSIONS Left Atrium (MM)4.2 (1.6-4.0cm) Aortic Root3.7 (2.0-3.7cm) Technically difficult study due to poor parasternal acoustical windows. M-mode measurements of left ventricle not obtainable due to cardiac position (angle) Normal left ventricular chamber size, systolic function and wall motion to extent visualized. Left ventricular ejection fraction estimated to be 60%. No evidenceof left ventricular hypertrophy . No evidence of pericardial effusion. All other cardiac chamber size are within normal limits. Thickened mitral valve leaflets with normal excursion. Mitral annulus and aortic root calcification. Aortic vavle calcification decreased openign suggestive of aortic stenosis Normal pulmonic valve structure. Normal tricuspid valve structure. subcostal views are not obtained due to GI-tube. Pacemaker wire present in the right side chambers. A color flow and spectral Doppler study was performed and revealed: No aortic insufficiency. Peak aortic valve gradient of 17 mm Hg and a mean of 10 mmHg. Trace mitral regurgitation. Normal left ventricular diastolic function. Mild tricuspid regurgitation. Tricuspid systolic velocities suggests peak right ventricular systolic pressure of 36mmHg consistent with mild pulmonary hypertension. No Pulmonic regurgitation present.
[2017-10-13 20:00] VITALS: BP 132/74
--- NOTE | 2017-10-13 20:07 | Consultation ---
Consult Note Assessment/Plan [id number] job id [email or web address] Alcaraz Oct 13, 2017 20:07
[2017-10-13] MEDS: BuPROPion 75mg Tab GT SCH (20:44)
--- NOTE | 2017-10-13 21:25 | General Progress Note ---
Assessment/Plan Problem List: (1) Dehydration ICD Codes: E86.0 - Dehydration SNOMED: 88862384 (2) Weakness ICD Codes: R53.1 - Weakness SNOMED: 10690181 (3) Hematoma ICD Codes: T14.8XXA - Other injury of unspecified body region, initial encounter SNOMED: 574837998 (4) Dementia ICD Codes: F03.90 - Dementia SNOMED: 21164357 (5) Respiratory insufficiency ICD Codes: R06.89 - Respiratory insufficiency SNOMED: 354343551 (6) History of CVA (cerebrovascular accident) ICD Codes: Z86.73 - History of CVA (cerebrovascular accident) SNOMED: 202492473 (7) Dysphagia ICD Codes: R13.10 - Dysphagia SNOMED: 95521548 (8) Cellulitis (9) HTN (hypertension) ICD Codes: I10 - HTN (hypertension) SNOMED: 99514401 (10) Hypothyroidism ICD Codes: E03.9 - Hypothyroidism, unspecified SNOMED: 13308280 (11) H/O tracheostomy ICD Codes: Z93.0 - H/O tracheostomy SNOMED: 620826915 Status: progressing Assessment/Plan AFEBRILE cellulitis of legs hematoma of legs discussed w vascular surgeon abx per id Subjective ROS Limited/Unobtainable: Yes Allergies: Coded Allergies: AUBREY INHIBITORS (Verified Allergy, Unknown, ANGIOEDEMA, 09/17/12) Objective Last 24 Hour Vital Signs Date Time Temp Pulse Resp B/P (MAP) Pulse Ox O2 Delivery O2 Flow Rate FiO2 10/13/17 17:13 73 159/84 10/13/17 16:00 97.2 73 20 159/84 10/13/17 12:00 98.0 67 20 115/58 97 10/13/17 09:00 62 116/60 10/13/17 09:00 62 116/60 10/13/17 08:51 116/60 10/13/17 08:00 98.0 62 18 114/60 96 Nasal Cannula 2.0 10/13/17 04:00 96.8 62 20 118/71 94 Nasal Cannula 3.0 10/13/17 00:00 97.5 60 20 124/77 95 10/13/17 00:00 Nasal Cannula 3.0 Intake and Output 10/12/17 10/13/17 19:00 07:00 Intake Total 360 ml 540 ml Balance 360 ml 540 ml Intake Oral 0 ml Free Water 100 ml IV Total 360 ml Tube Feeding 440 ml # Voids 3 Height (Feet): 5 Height (Inches): 7.00 Weight (Pounds): 145 Cardiovascular: normal rate Respiratory/Chest: lungs clear Laina Pereira MD Oct 13, 2017 21:25
[2017-10-14] VITALS: BP 141/72
--- NOTE | 2017-10-14 02:00 | Consultation ---
DATE OF CONSULTATION: 10/13/2017 VASCULAR CONSULTATION CONSULTING PHYSICIAN: Scot Elias M.D. REFERRING PHYSICIAN: Laina Pereira M.D. REASON FOR EVALUATION: Left leg pretibial small hematoma with a history of right leg DVT. HISTORY OF PRESENT COMPLAINT: This is a 77-year-old male who is a halfway resident. The patient is poor historian. He has a history of psychosis, dementia, and feeding gastrostomy tube. The patient has a history of right leg DVT on Eliquis anticoagulation with question nguyen of trauma possible fall under the left leg with left pretibial small hematoma. Vascular surgery is consulted for further evaluation. The patient currently has no other complaints. PAST MEDICAL HISTORY: As above. History of DVT on Eliquis, psychosis, dementia and feeding gastrostomy tube. MEDICATIONS: See attached MAR. ALLERGIES: No known drug allergies. SOCIAL HISTORY: No history of smoking, drugs, or alcohol use. FAMILY HISTORY: Unremarkable. SYSTEM REVIEW: CARDIOVASCULAR: No history of chest pain or palpitations. PULMONARY: No cough. GASTROINTESTINAL: No history of abdominal pain, constipation, or diarrhea. GENITOURINARY: No urinary symptoms. NEUROLOGIC: No history of strokes or seizures. PHYSICAL EXAMINATION: VITAL SIGNS: The patient is afebrile at 97, heart rate 80, blood pressure 140/70, and respirations 16. GENERAL: The patient is awake and alert but has difficulty with his speech. NECK: He has palpable radial pulses. LUNGS: Clear to auscultation bilaterally. HEART: Regular rate and rhythm. ABDOMEN: Soft and nontender. EXTREMITIES: He has palpable femoral pulses and palpable popliteal pulses. Pedal pulses are intact and palpable with no edema. No calf tenderness. There is a small hematoma in the left pretibial area and in the subcutaneous muscular area. There is no open wound. IMAGING STUDIES: Lower extremity of venous duplex revealed chronic right leg deep venous thrombosis. IMPRESSION: 1. Small left pretibial anterior leg subcutaneous muscular hematoma suggestive of trauma or fall. 2. On anticoagulation for deep venous thrombosis now is more chronic in the right leg duplex from today imaging. 3. History of dementia. 4. Psychosis. 5. Feeding gastrostomy tube. PLAN AND RECOMMENDATIONS: 1. We will obtain a CT angiogram of the lower extremity and complete lower extremity duplex. 2. Compression Zan wrap over the left leg small hematoma, leg stockings and DVT, the right leg appears to be chronic. Okay to hold anticoagulation for 5 days. 3. We will continue Lovenox subcutaneously for prophylaxis and then the patient can continue with the anticoagulation if needed afterwards. The above was discussed at length with the patient. The patient is cleared from vascular surgery standpoint for discharge. Scot Elias M.D. DR: PETAR JOB#: [id number] CC: Scot Elias M.D.; Fax#: [phone] LAINA PEREIRA M.D. ; FAX#: [phone] [facility]
[2017-10-14 04:00] VITALS: BP 121/77
--- NOTE | 2017-10-14 06:00 | Consultation ---
DATE OF CONSULTATION: 10/13/2017 HEMATOLOGY/ONCOLOGY CONSULTATION CONSULTING PHYSICIAN: Jax Alcaraz M.D. REQUESTING PHYSICIAN: Laina Pereira M.D. REASON FOR CONSULTATION: Evaluation of chronic DVT and hematoma. IDENTIFICATION DATA: Dear Dr. Pereira, The patient is a pleasant 77-year-old male, who is well known to me. He has a past medical history, which is significant for DVT, which is chronic, at this time presents with a large hematoma of the lower extremity that is getting bigger. CAT scan confirmed this. He is on anticoagulant. The patient on CAT scan to have larger DVT. The patient was admitted for cellulitis of the overlying skin area of the lower extremity as well. He does have some leg pain. Imaging at this time of the lower extremity on 10/12/2017 shows extensive soft tissue edema and skin thickening consistent with cellulitis. The patient has consider ultrasound for further evaluation. PAST MEDICAL HISTORY: As noted above, hypertension, pacemaker placement, asthma, COPD, recurrent DVT . MEDICATIONS: Amiodarone, amlodipine, Eliquis, Lasix, metoprolol, ferrous sulfate, Glucophage, Proscar,Wellbutrin, Protonix, clonidine, and Tylenol. ALLERGIES: To AUBREY inhibitors. SOCIAL HISTORY: Unknown. FAMILY HISTORY: Noncontributory. REVIEW OF SYSTEMS: Unable to obtain. PHYSICAL EXAMINATION: GENERAL: No acute distress. VITAL SIGNS: Reviewed. PULMONARY: Decreased breath sounds. CARDIOVASCULAR: Regular rate. No S3 or S4. ABDOMEN: Soft, nontender, and nondistended. EXTREMITIES: Left leg swelling on the lateral aspect of the leg with erythema. LABORATORY AND DIAGNOSTIC DATA: WBC of 5.8, hemoglobin 10.2, hematocrit 32, and platelet count 272,000. BUN 33 and creatinine 1.2. Imaging reviewed. ASSESSMENT AND RECOMMENDATIONS: 1. Recurrent deep venous thrombosis. The patient has been on Eliquis. Reviewed the patient's skin exam findings with a hematoma noted. It is very mild. Therefore, at this time, okay to continue Eliquis, okay to continue apixaban unless Vascular Surgery disagrees. Once again, very minor at this time. Potentially, this could be traumatic related, and imaging has been ordered with CT angiogram and runoff. venous duplex scan by Dr. Elias. Continue to monitor and again continue Eliquis at this time. 2. Anemia secondary to chronic disease. 3. ENT cancer, currently in remission. 4. Hypertension. 5. Pacemaker placement. 6. Asthma. 7. Chronic obstructive pulmonary disease. I appreciate the consultation. Jax Alcaraz M.D. DR: JOSE JOB#: [id number] CC:
[2017-10-14 08:23] VITALS: BP 102/61
[2017-10-14] MEDS: Eliquis 2.5mg tablet GT SCH ×2 (08:48→17:41)
[2017-10-14] MEDS: Ferrous Sulfate 300 MG/5 ML UDC GT SCH (08:49)
[2017-10-14] MEDS: Valproic Acid 250mg/5ml Liquid GT SCH ×2 (08:49→22:58)
[2017-10-14] MEDS: Amiodarone 200mg tab GT SCH (08:49)
[2017-10-14] MEDS: Pantoprazole Inj IVP SCH (08:50)
[2017-10-14] MEDS: Metoprolol 25mg tab GT SCH ×2 (08:50→17:41)
--- NOTE | 2017-10-14 11:40 | Diagnostic Imaging Report ---
Indication: Pain, left lower extremity swelling TECHNIQUE: IV administration nonionic contrast. Arterial phase spiral acquisitions obtained through the abdomen, pelvis, and bilateral lower extremities. Multiplanar and 3-D reconstructions were generated. Total dose length product 1531 mGycm. CTDIvol(s) 8, 81, 8, 5 mGy. Radiation dose was minimized using automated exposure control COMPARISON: Noncontrast lower extremity CT dated 10/12/2017 FINDINGS Abdominal aorta: There are calcified atherosclerotic plaques in the abdominal aorta. There is a focal outpouching of the posterior lateral aspect of the distal abdominal aorta on the left which is nonetheless not of aneurysmal dimensions. Patent nonstenotic celiac axis and proximal branches, classic branching anatomy. Patent nonstenotic superior mesenteric artery and proximal branches. Patent nonstenotic inferior mesenteric artery. Right lower extremity: Patent and nonstenotic common iliac, external iliac, internal iliac arteries. Patent nonstenotic common femoral, superficial femoral, profunda femoral arteries. There is some atherosclerotic plaquing of the suprageniculate popliteal artery but this does not result in any significant narrowing. Trifurcation vessels demonstrate calcifications which preclude exclusion of significant stenosis. The posterior tibial arteries and anterior tibial artery are both patent to the level of the ankle. The peroneal artery is seen most but not all of the way to the ankle, may occlude just proximal to the ankle. Left lower extremity: There is a small focal dissection flap and associated focal ectasia involving the proximal common iliac artery. No focal stenosis is demonstrated. Patent and nonstenotic internal and external iliac arteries. Patent nonstenotic common femoral, profunda femoral, and superficial femoral arteries. There are mild nonflow-limiting stenoses of the popliteal artery. There is some wall thickening of the proximal popliteal artery. Calcification in the trifurcation vessels precludes confident exclusion of flow-limiting stenoses, but all 3 trifurcation vessels are seen to the ankle. Mild early venous filling is seen on the left at the level of the mid thigh and distally. This is asymmetric as compared to the right. Nonvascular: There is soft tissue edema of the lower extremities bilaterally, somewhat more severe on the left than on the right. A 4.5 x 2 cm hematoma is again demonstrated in the anterolateral lateral aspect of the left proximal leg, also reported on the recent noncontrast lower extremity CT. There is no evidence of contrast extravasation The appendix is normal. The colon is diffusely stool-filled. There are diverticula distally. No evidence of diverticulitis. Small bowel loops are diffusely gas filled, nondistended. There is a gastrostomy in good position. No free or loculated intraperitoneal air or fluid is evident. The liver, gallbladder, bile ducts, pancreas, spleen, adrenals, kidneys are all unremarkable. No retroperitoneal or mesenteric mass or adenopathy. No pelvic mass or adenopathy. The included lung bases demonstrate some inferior right middle lobe and left lower lobe scarring versus atelectasis. Pacemaker wires are seen in the heart. The bones demonstrate degenerative spondylosis changes. There is an inferior endplate compression fracture deformity of the L3 vertebral body. Suspect this is chronic. There may be a slight wedge deformity of the L2 vertebral body as well. There is bilateral L5 spondylolysis, grade 1 L5 on S1 spondylolisthesis. IMPRESSION: On the right, no evidence of suprageniculate peripheral vascular insufficiency. There may be occlusion of the distal peroneal artery. Calcifications within the anterior tibial and posterior tibial arteries preclude confident exclusion of significant disease within these vessels, but they both appear to be patent to the ankle On the left, no evidence of suprageniculate peripheral vascular insufficiency. Calcifications within the trifurcation vessels preclude confident exclusion of significant disease within these vessels, but all 3 appear to be patent to the ankle 4.5 x 2 cm hematoma again demonstrated in the anterolateral aspect of the left proximal leg, also reported on 10/12/2016 CT scan. Bilateral lower extremity edema, left greater than right Mild asymmetric early filling of the left lower extremity veins. If the above-mentioned edema is due to cellulitis, this is probably just asymmetric early venous filling due to soft tissue hyperemia. However, the possibility of a small arteriovenous fistula should also be considered. If so, the site of such is not clearly demonstrated on this exam. However, could be conceivably related to recent trauma given the presence of a hematoma in the proximal leg. If present, a fistula could also explain the swelling of the left leg Mild but somewhat striking wall thickening of the proximal left popliteal artery. Probably atherosclerotic in nature but the possibility of arteritis should be considered Evidence of constipation Colonic diverticulosis. No evidence of diverticulitis Inferior right middle lobe and left lower lobe pulmonary scarring versus atelectasis L3 and possibly L2 vertebral body compression fracture deformities, acuity indeterminate although suspect chronic Bilateral L5 spondylolysis, grade 1 L5 on S1 spondylolisthesis Other findings as noted, including degenerative spondylosis, pacemaker, gastrostomy The CT scanner at [facility] is accredited by the [employer] and the scans are performed using protocols designed to limit radiation exposure to as low as reasonably achievable to attain images of sufficient resolution adequate for diagnostic evaluation.
--- NOTE | 2017-10-14 11:43 | Infectious Diseases Prog Note ---
"Assessment/Plan Assessment/Plan antibiotics : vancomycin iv A 1. left leg cellulitis | hematoma 2. s/p trauma 3. DM 4. HTN 5. COPD P 1. continue iv vancomycin 2. will follow up cultures Subjective ROS Limited/Unobtainable: Yes Allergies: Coded Allergies: AUBREY INHIBITORS (Verified Allergy, Unknown, ANGIOEDEMA, 09/17/12) Objective Vital Signs Last 24 Hour Vital Signs Date Time Temp Pulse Resp B/P (MAP) Pulse Ox O2 Delivery O2 Flow Rate FiO2 10/14/17 08:50 60 102/61 10/14/17 08:50 60 102/61 10/14/17 08:49 102/61 10/14/17 08:23 96.4 60 18 102/61 96 10/14/17 04:00 97.2 67 16 121/77 93 10/14/17 04:00 Nasal Cannula 2.0 10/14/17 00:00 98.0 65 21 141/72 100 10/14/17 00:00 Nasal Cannula 2.0 10/13/17 20:00 Nasal Cannula 2.0 10/13/17 20:00 97.7 61 20 132/74 96 10/13/17 17:13 73 159/84 10/13/17 16:00 97.2 73 20 159/84 10/13/17 12:00 98.0 67 20 115/58 97 Height (Feet): 5 Height (Inches): 7.00 Weight (Pounds): 145 Respiratory/Chest: lungs clear Cardiovascular: normal rate, regular rhythm, no gallop/murmur Abdomen: soft, non tender Extremities: no edema, other - left leg in dressings Microbiology Date/Time Source Procedure Growth Status 10/12/17 15:00 Blood Blood Culture - Preliminary NO GROWTH AFTER 24 HOURS Resulted 10/12/17 14:48 Blood Blood Culture - Preliminary NO GROWTH AFTER 24 HOURS Resulted GITA FUNG Oct 14, 2017 11:43"
[2017-10-14 12:00] VITALS: BP 108/69
[2017-10-14] MEDS: Vancomycin 1gm in D5W 275ml IVPB SCH (12:44)
--- NOTE | 2017-10-14 12:47 | General Progress Note ---
Assessment/Plan Problem List: (1) Dehydration ICD Codes: E86.0 - Dehydration SNOMED: 33165703 (2) Weakness ICD Codes: R53.1 - Weakness SNOMED: 69647651 (3) Hematoma ICD Codes: T14.8XXA - Other injury of unspecified body region, initial encounter SNOMED: 852753257 (4) Dementia ICD Codes: F03.90 - Dementia SNOMED: 78831955 (5) Respiratory insufficiency ICD Codes: R06.89 - Respiratory insufficiency SNOMED: 566187220 (6) History of CVA (cerebrovascular accident) ICD Codes: Z86.73 - History of CVA (cerebrovascular accident) SNOMED: 349237522 (7) Dysphagia ICD Codes: R13.10 - Dysphagia SNOMED: 38523974 (8) Cellulitis (9) HTN (hypertension) ICD Codes: I10 - HTN (hypertension) SNOMED: 72840138 (10) Hypothyroidism ICD Codes: E03.9 - Hypothyroidism, unspecified SNOMED: 35182727 (11) H/O tracheostomy ICD Codes: Z93.0 - H/O tracheostomy SNOMED: 832739322 Status: progressing Assessment/Plan cellulitis of legs is improving hematoma of legs discussed w vascular surgeon Subjective ROS Limited/Unobtainable: Yes Constitutional: Reports: no symptoms Allergies: Coded Allergies: AUBREY INHIBITORS (Verified Allergy, Unknown, ANGIOEDEMA, 09/17/12) Objective Last 24 Hour Vital Signs Date Time Temp Pulse Resp B/P (MAP) Pulse Ox O2 Delivery O2 Flow Rate FiO2 10/14/17 12:00 96.6 60 18 108/69 94 10/14/17 08:50 60 102/61 10/14/17 08:50 60 102/61 10/14/17 08:49 102/61 10/14/17 08:23 96.4 60 18 102/61 96 10/14/17 04:00 97.2 67 16 121/77 93 10/14/17 04:00 Nasal Cannula 2.0 10/14/17 00:00 98.0 65 21 141/72 100 10/14/17 00:00 Nasal Cannula 2.0 10/13/17 20:00 Nasal Cannula 2.0 10/13/17 20:00 97.7 61 20 132/74 96 10/13/17 17:13 73 159/84 10/13/17 16:00 97.2 73 20 159/84 Intake and Output 10/13/17 10/14/17 19:00 07:00 Intake Total 830.000 ml 580 ml Balance 830.000 ml 580 ml Free Water 100 ml 100 ml IV Total 250.000 ml Tube Feeding 480 ml 480 ml # Voids 8 4 Height (Feet): 5 Height (Inches): 7.00 Weight (Pounds): 145 General Appearance: confused Cardiovascular: normal rate Respiratory/Chest: lungs clear Laina Pereira MD Oct 14, 2017 12:47
[2017-10-14 15:57] VITALS: BP 116/57
[2017-10-14 20:00] VITALS: BP 101/52
--- NOTE | 2017-10-14 20:21 | General Progress Note ---
Assessment/Plan Assessment/Plan 1. Recurrent deep venous thrombosis. The patient has been on Eliquis. Reviewed the patient's skin exam findings with a hematoma noted. It is very mild. Therefore, at this time, okay to continue Eliquis unless Vascular Surgery disagrees. Continue to monitor 2. Anemia secondary to chronic disease. 3. ENT cancer, currently in remission. 4. Hypertension. 5. Pacemaker placement. 6. Asthma. 7. Chronic obstructive pulmonary disease. Subjective Constitutional: Denies: no symptoms, chills, diaphoresis, fever, malaise, weakness, other HEENT: Denies: no symptoms, eye pain, blurred vision, tearing, double vision, ear pain, ear discharge, nose pain, nose congestion, throat pain, throat swelling, mouth pain, mouth swelling, other Cardiovascular: Denies: no symptoms, chest pain, edema, irregular heart rate, lightheadedness, palpitations, syncope, other Respiratory: Denies: no symptoms, cough, orthopnea, shortness of breath, SOB with excertion, SOB at rest, sputum, stridor, wheezing, other Gastrointestinal/Abdominal: Denies: no symptoms, abdomen distended, abdominal pain, black stools, tarry stools, blood in stool, constipated, diarrhea, difficulty swallowing, nausea, poor appetite, poor fluid intake, rectal bleeding , vomiting, other Genitourinary: Denies: no symptoms, burning, discharge, frequency, flank pain, hematuria, incontinence, pain, urgency, other Neurologic/Psychiatric: Denies: no symptoms, anxiety, depressed, emotional problems, headache, numbness, paresthesia, pre-existing deficit, seizure, tingling, tremors, weakness, other Endocrine: Denies: no symptoms, excessive sweating, flushing, intolerance to cold, intolerance to heat, increased hunger, increased thirst, increased urine, unexplained weight gain, unexplained weight loss, other Hematologic/Lymphatic: Denies: no symptoms, anemia, easy bleeding, easy bruising, other Allergies: Coded Allergies: AUBREY INHIBITORS (Verified Allergy, Unknown, ANGIOEDEMA, 09/17/12) Subjective NAD Objective Last 24 Hour Vital Signs Date Time Temp Pulse Resp B/P (MAP) Pulse Ox O2 Delivery O2 Flow Rate FiO2 10/14/17 17:41 66 116/57 10/14/17 15:57 96.1 66 20 116/57 92 10/14/17 12:00 96.6 60 18 108/69 94 10/14/17 08:50 60 102/61 10/14/17 08:50 60 102/61 10/14/17 08:49 102/61 10/14/17 08:23 96.4 60 18 102/61 96 10/14/17 04:00 97.2 67 16 121/77 93 10/14/17 04:00 Nasal Cannula 2.0 10/14/17 00:00 98.0 65 21 141/72 100 10/14/17 00:00 Nasal Cannula 2.0 10/13/17 20:00 Nasal Cannula 2.0 10/13/17 20:00 97.7 61 20 132/74 96 Intake and Output 10/13/17 10/14/17 19:00 07:00 Intake Total 830.000 ml 580 ml Balance 830.000 ml 580 ml Free Water 100 ml 100 ml IV Total 250.000 ml Tube Feeding 480 ml 480 ml # Voids 8 4 Height (Feet): 5 Height (Inches): 7.00 Weight (Pounds): 145 General Appearance: no apparent distress EENT: normal ENT inspection Neck: supple Cardiovascular: normal rate Respiratory/Chest: lungs clear Abdomen: non tender Jax Alcaraz Oct 14, 2017 20:21
[2017-10-14] MEDS: BuPROPion 75mg Tab GT SCH (22:58)
[2017-10-15] VITALS: BP 105/55
[2017-10-15 04:00] VITALS: BP 128/70
[2017-10-15 08:00] VITALS: BP 129/78
--- NOTE | 2017-10-15 11:05 | GI Initial Consult Note ---
Bonilla,Trinh Irvin NLindaPLinda 10/15/17 1105: History of Present Illness General Date patient seen: Oct 15, 2017 Time patient seen: 11:02 Reason for Hospitalization: Skin Rash/Abscess Referring physician: LISA GALLAGHER Reason for Consultation: GT MALFUNCTION Present Illness HPI The patient is a poor historian, has schizophrenia, and psychiatric patient, comes here because of enlarging hematoma in the lower extremity leg that is getting bigger. The hematoma is getting bigger. He has a history of chronic DVT. He is on anticoagulant. The patient is admitted for a large hematoma that was shown on CT of the lower extremity. The patient is also admitted for cellulitis in the overlying skin area on the lower extremity as well. He does have leg pain. Denies nausea, vomiting, diarrhea. Denies shortness of breath. Denies cough. Denies fever or chills. GI consulted for GT malfunction. Home Meds Reported Medications Valproate Sodium (VALPROIC ACID) 250 Mg/5 Ml Solution, 500 MG GT BID for SEIZURE 10/12/17 Levothyroxine Sodium* (LEVOTHYROXINE SODIUM*) 100 Mcg Tablet, 100 MCG GT DAILY for HYPOTHYROIDISM, TAB Take in the morning on an empty stomach, at least 30 minutes before food. 10/12/17 Heparin Sod (Porcine) (HEPARIN SODIUM*) 5 000/1 Ml Vial, 5000 UNITS SUBQ EVERY 12 HOURS for DVT, VIAL 10/12/17 Ferrous Sulfate (FERROUS SULFATE) 220 Mg/5 Ml Solution, 330 MG GT DAILY for ANEMIA 10/12/17 Cranberry Extract (CRANBERRY) 405 Mg Capsule, 405 MG GT DAILY for UTI PPX, TAB 10/12/17 Bupropion Hcl* (BUPROPION HCL*) 75 Mg Tablet, 75 MG GT QHS for depression, TAB 10/12/17 Acetaminophen* (ACETAMINOPHEN 325MG TABLET*) 325 Mg Tablet, 325 MG GT DAILY for GIVE 30 MIN PRIOR TO TX 04/30/17 Acetaminophen* (ACETAMINOPHEN 325MG TABLET*) 325 Mg Tablet, 650 MG GT Q4H Y for MILD PAIN, NTE 3G/24HR 04/30/17 Finasteride* (PROSCAR*) 5 Mg Tablet, 5 MG GT DAILY for FOR BPH 04/30/17 Esomeprazole Magnesium (NEXIUM) 40 Mg Capsule., 40 MG GT DAILY for BEFORE BREAKFAST 04/30/17 Multivitamin Liquid* (MULTI-DELYN*) 237 Ml Liquid, 5 ML GT DAILY for Constipation 04/30/17 Magnesium Hydroxide* (MILK OF MAGNESIA*) 400 Mg/5 Ml Oral.susp, 30 ML GT DAILY Y for Constipation 04/30/17 Metoprolol Tartrate* (METOPROLOL TARTRATE*) 25 Mg Tablet, 12.5 MG GT BID for HOLD FOR SBP <110 04/30/17 Potassium Chloride (Potassium Chloride) 20 Meq/15 Ml Liquid, 10 MEQ GT DAILY 04/30/17 Metformin Hcl* (METFORMIN HCL*) 500 Mg Tablet, 500 MG GT TWICE A DAY for WITH BREAKFAST AND DINNER 04/30/17 Furosemide* (LASIX*) 20 Mg Tablet, 20 MG GT DAILY for FOR CHF 04/30/17 Apixaban (ELIQUIS) 2.5 Mg Tablet, 2.5 MG GT BID for FOR A-FIB 04/30/17 Clonidine Hcl* (CATAPRES*) 0.1 Mg Tablet, 0.1 MG GT DAILY for HOLD FOR SBP <110 04/30/17 Clonidine Hcl* (CATAPRES*) 0.1 Mg Tablet, 0.1 MG GT EVERY 6 HOURS Y for FOR SBP >160 04/30/17 Amiodarone Hcl* (PACERONE*) 100 Mg Tablet, 100 MG GT DAILY for HOLD IF SBP<110 OR DBP<60 04/30/17 Amlodipine Besylate* (AMLODIPINE BESYLATE*) 5 Mg Tablet, 5 MG GT DAILY for FOR HTN, HOLD IF SBP<110 04/30/17 Discontinued Reported Medications Fluorouracil (FLUOROURACIL) 40 Gm Cream..g., 40 GM TP DAILY for FACE AND SCALP LESIONS 04/30/17 Bisacodyl (DULCOLAX) 10 Mg Supp.rect, 10 MG RC DAILY Y for IF MOM IS INEFFECTIVE 04/30/17 Med list reviewed/reconciled: Yes Allergies: Coded Allergies: AUBREY INHIBITORS (Verified Allergy, Unknown, ANGIOEDEMA, 09/17/12) Patient History Limited by: medical condition History Provided By: Patient, Medical Record [facility] Narrative PAST MEDICAL HISTORY: History of recurrent DVT, history of ENT cancer, history of schizophrenia, history of CVA, history of dysphagia, history of thyroid mass, history of sinusitis, history of hypothyroidism, history of ileus, history of SVT, history of GERD, history of BPH and iron-deficiency anemia, history of NIDDM and mood disorder as well and arrhythmia. PAST SURGICAL HISTORY: ENT surgery to remove the cancer as well as PEG. Review of Systems All Other Systems: limited Physical Exam Vital Signs Date Time Temp Pulse Resp B/P (MAP) Pulse Ox O2 Delivery O2 Flow Rate FiO2 10/12/17 13:42 98.1 60 20 103/56 98 Room Air 10/12/17 18:27 3.0 Sp02 EP Interpretation: reviewed, normal General Appearance: well appearing, no apparent distress, alert, thin Head: normocephalic EENT: PERRL/EOMI, normal ENT inspection Neck: supple Respiratory: normal breath sounds, no respiratory distress Cardiovascular: normal rate Gastrointestinal: normal inspection, non tender, soft, normal bowel sounds, non -distended, gt - clogged, unable to flush Rectal: deferred Genitourinary: deferred Musculoskeletal: normal inspection, back normal Neurologic: normal inspection, alert, responsive Skin: normal inspection, normal color, no rash, warm/dry, palpation normal, well hydrated Lymphatic: normal inspection, no adenopathy Current Medications Current Medications Medications (Trade) Dose Ordered Sig/Yousuf Route PRN Reason Start Time Stop Time Status Last Admin Dose Admin Acetaminophen (Tylenol) 650 mg Q4H PRN ORAL MILD PAIN, NTE 3G/24HR 10/12/17 20:15 11/11/17 20:14 Acetaminophen (Tylenol) 650 mg Q4H PRN ORAL Temp > 100.5 10/12/17 20:15 11/11/17 20:14 Amiodarone HCl (Cordarone) 100 mg DAILY GT 10/13/17 09:00 11/12/17 08:59 10/14/17 08:49 Amlodipine Besylate (Norvasc) 5 mg DAILY GT 10/13/17 09:00 11/12/17 08:59 Apixaban (Eliquis) 2.5 mg BID GT 10/13/17 09:00 11/12/17 08:59 10/14/17 17:41 Bupropion HCl (Wellbutrin) 75 mg QHS GT 10/12/17 21:00 11/11/17 20:59 10/14/17 22:58 Clonidine HCl (Catapres) 0.1 mg DAILY GT 10/13/17 09:00 11/12/17 08:59 Clonidine HCl (Catapres) 0.1 mg Q6H PRN GT FOR SBP >160 10/12/17 20:15 11/11/17 20:14 Ferrous Sulfate (Feosol) 330 mg DAILY GT 10/13/17 09:00 11/12/17 08:59 10/14/17 08:49 Finasteride (Proscar) 5 mg DAILY ORAL 10/13/17 09:00 11/12/17 08:59 10/14/17 08:48 Furosemide (Lasix) 20 mg DAILY GT 10/13/17 09:00 11/12/17 08:59 10/14/17 08:49 Levothyroxine Sodium (Synthroid) 100 mcg ACBREAKFAST GT 10/13/17 09:00 11/12/17 08:59 10/15/17 06:49 Magnesium Hydroxide (Mom) 30 ml DAILYPRN PRN GT Constipation 10/12/17 20:15 11/11/17 20:14 Metoprolol Tartrate (Lopressor) 12.5 mg BID GT 10/13/17 09:00 11/12/17 08:59 10/14/17 17:41 Pantoprazole (Protonix) 40 mg DAILY IVP 10/12/17 21:15 11/11/17 21:14 10/14/17 08:50 Valproic Acid (Depakene) 500 mg EVERY 12 HOURS GT 10/12/17 22:00 11/11/17 21:59 10/14/17 22:58 Vancomycin HCl (Vanco rx to dose) 1 ea DAILY PRN MISC Per rx protocol 10/13/17 11:30 11/12/17 11:29 Vancomycin HCl 1 gm/Dextrose 275 ml @ 183.708 mls/hr Q24H IVPB 10/14/17 12:00 10/19/17 11:59 10/14/17 12:44 GI: Plan Problems: (1) Dehydration (2) Ileus (3) Malfunction of gastrostomy tube (4) Dysphagia (5) Altered mental status Plan GT changed at bedside. >> ok to use after KUB confirmation GTFs per RD fu ST eval for possible oral grat ppi prn transfusions fu labs Discussed with Dr. Davila. Thank you for this patient referral, we will follow. SHORTY DAVILA 10/16/17 1003: History of Present Illness General Reason for Hospitalization: Skin Rash/Abscess Present Illness Home Meds Reported Medications Valproate Sodium (VALPROIC ACID) 250 Mg/5 Ml Solution, 500 MG GT BID for SEIZURE 10/12/17 Levothyroxine Sodium* (LEVOTHYROXINE SODIUM*) 100 Mcg Tablet, 100 MCG GT DAILY for HYPOTHYROIDISM, TAB Take in the morning on an empty stomach, at least 30 minutes before food. 10/12/17 Heparin Sod (Porcine) (HEPARIN SODIUM*) 5 000/1 Ml Vial, 5000 UNITS SUBQ EVERY 12 HOURS for DVT, VIAL 10/12/17 Ferrous Sulfate (FERROUS SULFATE) 220 Mg/5 Ml Solution, 330 MG GT DAILY for ANEMIA 10/12/17 Cranberry Extract (CRANBERRY) 405 Mg Capsule, 405 MG GT DAILY for UTI PPX, TAB 10/12/17 Bupropion Hcl* (BUPROPION HCL*) 75 Mg Tablet, 75 MG GT QHS for depression, TAB 10/12/17 Acetaminophen* (ACETAMINOPHEN 325MG TABLET*) 325 Mg Tablet, 325 MG GT DAILY for GIVE 30 MIN PRIOR TO TX 04/30/17 Acetaminophen* (ACETAMINOPHEN 325MG TABLET*) 325 Mg Tablet, 650 MG GT Q4H Y for MILD PAIN, NTE 3G/24HR 04/30/17 Finasteride* (PROSCAR*) 5 Mg Tablet, 5 MG GT DAILY for FOR BPH 04/30/17 Esomeprazole Magnesium (NEXIUM) 40 Mg Capsule.dr, 40 MG GT DAILY for BEFORE BREAKFAST 04/30/17 Multivitamin Liquid* (MULTI-DELYN*) 237 Ml Liquid, 5 ML GT DAILY for Constipation 04/30/17 Magnesium Hydroxide* (MILK OF MAGNESIA*) 400 Mg/5 Ml Oral.susp, 30 ML GT DAILY Y for Constipation 04/30/17 Metoprolol Tartrate* (METOPROLOL TARTRATE*) 25 Mg Tablet, 12.5 MG GT BID for HOLD FOR SBP <110 04/30/17 Potassium Chloride (Potassium Chloride) 20 Meq/15 Ml Liquid, 10 MEQ GT DAILY 04/30/17 Metformin Hcl* (METFORMIN HCL*) 500 Mg Tablet, 500 MG GT TWICE A DAY for WITH BREAKFAST AND DINNER 04/30/17 Furosemide* (LASIX*) 20 Mg Tablet, 20 MG GT DAILY for FOR CHF 04/30/17 Apixaban (ELIQUIS) 2.5 Mg Tablet, 2.5 MG GT BID for FOR A-FIB 04/30/17 Clonidine Hcl* (CATAPRES*) 0.1 Mg Tablet, 0.1 MG GT DAILY for HOLD FOR SBP <110 04/30/17 Clonidine Hcl* (CATAPRES*) 0.1 Mg Tablet, 0.1 MG GT EVERY 6 HOURS Y for FOR SBP >160 04/30/17 Amiodarone Hcl* (PACERONE*) 100 Mg Tablet, 100 MG GT DAILY for HOLD IF SBP<110 OR DBP<60 04/30/17 Amlodipine Besylate* (AMLODIPINE BESYLATE*) 5 Mg Tablet, 5 MG GT DAILY for FOR HTN, HOLD IF SBP<110 04/30/17 Discontinued Reported Medications Fluorouracil (FLUOROURACIL) 40 Gm Cream..g., 40 GM TP DAILY for FACE AND SCALP LESIONS 04/30/17 Bisacodyl (DULCOLAX) 10 Mg Supp.rect, 10 MG RC DAILY Y for IF MOM IS INEFFECTIVE 04/30/17 Allergies: Coded Allergies: AUBREY INHIBITORS (Verified Allergy, Unknown, ANGIOEDEMA, 09/17/12) GI: Plan Plan The patient was seen and examined at bedside and all new and available data was reviewed in the patients chart. I agree with the above findings, impression and plan. (Patient seen earlier today. Signature stamp does not reflect patient encounter time.). - [facility] Irvin N.Mainor Oct 15, 2017 11:05 SHORTY DAVILA Oct 16, 2017 10:03
[2017-10-15 11:40] VITALS: BP 156/86
--- NOTE | 2017-10-15 11:43 | Diagnostic Imaging Report ---
Indication: Evaluation of gastrostomy tube replacement Technique: Supine view of the abdomen after injection of water-soluble contrast into gastrostomy Comparison: 06/07/2017 Findings: Contrast opacifies the stomach. No contrast extravasation is demonstrated. The bowel gas pattern is unremarkable the gastrostomy balloon is outlined by gas. The retained T-fastener is again demonstrated. No significant interim change Impression: Satisfactory position of gastrostomy tube
--- NOTE | 2017-10-15 11:44 | Infectious Diseases Prog Note ---
"Assessment/Plan Assessment/Plan antibiotics : vancomycin iv A 1. left leg cellulitis | hematoma 2. s/p trauma 3. DM 4. HTN 5. COPD 6. aortic stenosis P 1. continue iv vancomycin 2. will follow up cultures Subjective ROS Limited/Unobtainable: Yes Allergies: Coded Allergies: AUBREY INHIBITORS (Verified Allergy, Unknown, ANGIOEDEMA, 09/17/12) Objective Vital Signs Last 24 Hour Vital Signs Date Time Temp Pulse Resp B/P (MAP) Pulse Ox O2 Delivery O2 Flow Rate FiO2 10/15/17 11:40 98.0 71 20 156/86 95 10/15/17 08:00 96.8 60 20 129/78 91 10/15/17 04:00 97.7 60 20 128/70 95 10/15/17 00:00 98.1 59 18 105/55 95 10/14/17 20:00 97.8 61 20 101/52 93 10/14/17 17:41 66 116/57 10/14/17 15:57 96.1 66 20 116/57 92 10/14/17 12:00 96.6 60 18 108/69 94 Height (Feet): 5 Height (Inches): 7.00 Weight (Pounds): 145 Respiratory/Chest: lungs clear Cardiovascular: normal rate, regular rhythm, no gallop/murmur Abdomen: soft, non tender Extremities: no edema, other - left leg in dressings Microbiology Date/Time Source Procedure Growth Status 10/12/17 15:00 Blood Blood Culture - Preliminary NO GROWTH AFTER 48 HOURS Resulted 10/12/17 14:48 Blood Blood Culture - Preliminary NO GROWTH AFTER 48 HOURS Resulted GITA FUNG Oct 15, 2017 11:43"
[2017-10-15] MEDS: Vancomycin 1gm in D5W 275ml IVPB SCH (12:09)
[2017-10-15] MEDS: Metoprolol 25mg tab GT SCH ×2 (12:16→18:23)
[2017-10-15] MEDS: Pantoprazole Inj IVP SCH (12:16)
[2017-10-15] MEDS: Eliquis 2.5mg tablet GT SCH ×2 (12:17→18:23)
[2017-10-15] MEDS: Valproic Acid 250mg/5ml Liquid GT SCH ×2 (12:17→22:27)
[2017-10-15] MEDS: Amiodarone 200mg tab GT SCH (12:17)
[2017-10-15] MEDS: Ferrous Sulfate 300 MG/5 ML UDC GT SCH (12:18)
--- NOTE | 2017-10-15 13:03 | Diagnostic Imaging Report ---
APPROVED REPORT CPT Code: 38811 Symptoms Comments: Pain VELOCITY MEASUREMENTS AND DOPPLER WAVEFORM ANALYSIS RIGHTcm/secWaveformSeverityLEFTcm/secWaveformSeverity Com Fem Art. 82TriphasicNormalCom Fem Art. 67BiphasicNormal Fem Art Prox. 73TriphasicNormalFem Art Prox. 71BiphasicNormal Fem Art Mid. 60TriphasicNormalFem Art Mid. 64BiphasicNormal Fem Art Dist. 63TriphasicNormalFem Art Dist. 63BiphasicNormal Pop Art Prox. 41TriphasicNormalPop Art Prox. 50MonophasicMild 1-49% SEAFOOD TEAM MEMBER Prox. 55TriphasicNormalPTA Prox. 85MonophasicMild 1-49% RITA Prox. 69TriphasicNormalATA Prox. 47MonophasicNormal RITA Dist. 55TriphasicNormalATA Dist. 87MonophasicMild 1-49% RIGHT LEG: Common femoral artery waveform analysis is within normal limits at rest. Color duplex sonography reveals patency of the superficial femoral, popliteal and tibial arteries. Color flow duplex sonography reveals minimal calcification throughout the superficial femoral and popliteal arteries. There is no evidence of significant stenosis or occlusion within these segments. The tibioperoneal trunk is patent. The tibial arteries are also minimally calcified. LEFT LEG: Common femoral artery waveform analysis is abnormal, suggestive of iliac arterial occlusive disease. Color duplex sonography reveals patency of the superficial femoral, popliteal and tibial arteries. Color flow duplex sonography reveals mild plaque at the common femoral artery, and minimal calcification throughout the superficial femoral and popliteal arteries. There is no evidence of significant stenosis or occlusion within these segments. The tibioperoneal trunk was not visualized. The tibial arteries are also mildly calcified. Doppler waveform analysis of the tibial arteries is suggestive of mild stenosis in some segments.
--- NOTE | 2017-10-15 13:05 | Diagnostic Imaging Report ---
APPROVED REPORT CPT Code: 82462 Present Symptoms Lower Extremity Pain: Past History Prior Lower Extremity Venous DuplexDate : 06/05/2017 RIGHT LEG: Venous imaging reveals recanalized chronic thrombus in the distal superficial femoral vein with a collateral vein noted anterior to the distal superficial femoral artery. Imaging also reveals patency of the common femoral and calf veins. The greater saphenous vein is also within normal limits. Doppler indicates normal spontaneous flow within these segments. LEFT LEG: Venous imaging reveals a patent deep venous system. There is no evidence of thrombus within the femoral, popliteal or tibial segments. The greater saphenous vein is also within normal limits. Doppler indicates normal spontaneous flow within these segments. No evidence of acute DVT.
[2017-10-15 15:49] VITALS: BP 117/72
--- NOTE | 2017-10-15 19:03 | General Progress Note ---
Assessment/Plan Assessment/Plan 1. Recurrent deep venous thrombosis. The patient has been on Eliquis. Reviewed the patient's skin exam findings with a hematoma noted. It is very mild. Therefore, at this time, okay to continue Eliquis unless Vascular Surgery disagrees. Continue to monitor --> appreciate Dr. Joan aguirre, have discussed with Dr. Pereira --> okay to apply daniela bandage as per vascular team 2. Anemia secondary to chronic disease. 3. ENT cancer, currently in remission. 4. Hypertension. 5. Pacemaker placement. 6. Asthma. 7. Chronic obstructive pulmonary disease. Subjective Constitutional: Denies: no symptoms, chills, diaphoresis, fever, malaise, weakness, other HEENT: Denies: no symptoms, eye pain, blurred vision, tearing, double vision, ear pain, ear discharge, nose pain, nose congestion, throat pain, throat swelling, mouth pain, mouth swelling, other Cardiovascular: Denies: no symptoms, chest pain, edema, irregular heart rate, lightheadedness, palpitations, syncope, other Respiratory: Denies: no symptoms, cough, orthopnea, shortness of breath, SOB with excertion, SOB at rest, sputum, stridor, wheezing, other Gastrointestinal/Abdominal: Denies: no symptoms, abdomen distended, abdominal pain, black stools, tarry stools, blood in stool, constipated, diarrhea, difficulty swallowing, nausea, poor appetite, poor fluid intake, rectal bleeding , vomiting, other Genitourinary: Denies: no symptoms, burning, discharge, frequency, flank pain, hematuria, incontinence, pain, urgency, other Endocrine: Denies: no symptoms, excessive sweating, flushing, intolerance to cold, intolerance to heat, increased hunger, increased thirst, increased urine, unexplained weight gain, unexplained weight loss, other Hematologic/Lymphatic: Denies: no symptoms, anemia, easy bleeding, easy bruising, other Allergies: Coded Allergies: DANIELA INHIBITORS (Verified Allergy, Unknown, ANGIOEDEMA, 09/17/12) Subjective NAD Objective Last 24 Hour Vital Signs Date Time Temp Pulse Resp B/P (MAP) Pulse Ox O2 Delivery O2 Flow Rate FiO2 10/15/17 18:23 67 117/72 10/15/17 15:49 97.9 67 20 117/72 95 10/15/17 12:18 156/86 10/15/17 12:17 71 156/86 10/15/17 12:16 71 156/86 10/15/17 11:40 98.0 71 20 156/86 95 10/15/17 08:00 96.8 60 20 129/78 91 10/15/17 04:00 97.7 60 20 128/70 95 10/15/17 00:00 98.1 59 18 105/55 95 10/14/17 20:00 97.8 61 20 101/52 93 Intake and Output 10/14/17 10/15/17 19:00 07:00 Intake Total 815.000 ml Balance 815.000 ml Free Water 100 ml IV Total 275.000 ml Tube Feeding 440 ml # Voids 3 4 Height (Feet): 5 Height (Inches): 7.00 Weight (Pounds): 145 General Appearance: no apparent distress EENT: TMs normal Neck: supple Cardiovascular: regular rhythm Respiratory/Chest: lungs clear Abdomen: non tender Extremities: non-tender Edema: 1+ Leg (L), 1+ Leg (R) Edema: mild edema Neurologic: no motor/sensory deficits Skin: warm/dry Jax Alcaraz Oct 15, 2017 19:03
[2017-10-15 20:00] VITALS: BP 99/53
--- NOTE | 2017-10-15 20:47 | General Progress Note ---
Assessment/Plan Problem List: (1) Dehydration ICD Codes: E86.0 - Dehydration SNOMED: 08957761 (2) Weakness ICD Codes: R53.1 - Weakness SNOMED: 50331660 (3) Hematoma ICD Codes: T14.8XXA - Other injury of unspecified body region, initial encounter SNOMED: 986572342 (4) Dementia ICD Codes: F03.90 - Dementia SNOMED: 69276926 (5) Respiratory insufficiency ICD Codes: R06.89 - Respiratory insufficiency SNOMED: 264236591 (6) History of CVA (cerebrovascular accident) ICD Codes: Z86.73 - History of CVA (cerebrovascular accident) SNOMED: 012559687 (7) Dysphagia ICD Codes: R13.10 - Dysphagia SNOMED: 71658706 (8) Cellulitis (9) HTN (hypertension) ICD Codes: I10 - HTN (hypertension) SNOMED: 38121712 (10) Hypothyroidism ICD Codes: E03.9 - Hypothyroidism, unspecified SNOMED: 90776585 (11) H/O tracheostomy ICD Codes: Z93.0 - H/O tracheostomy SNOMED: 454017989 Status: progressing Assessment/Plan cellulitis of legs is improving hematoma of legs improving dvt s/p malfunctioning peg dc in am Subjective ROS Limited/Unobtainable: Yes Constitutional: Reports: no symptoms Allergies: Coded Allergies: AUBREY INHIBITORS (Verified Allergy, Unknown, ANGIOEDEMA, 09/17/12) Objective Last 24 Hour Vital Signs Date Time Temp Pulse Resp B/P (MAP) Pulse Ox O2 Delivery O2 Flow Rate FiO2 10/15/17 18:23 67 117/72 10/15/17 15:49 97.9 67 20 117/72 95 10/15/17 12:18 156/86 10/15/17 12:17 71 156/86 10/15/17 12:16 71 156/86 10/15/17 11:40 98.0 71 20 156/86 95 10/15/17 08:00 96.8 60 20 129/78 91 10/15/17 04:00 97.7 60 20 128/70 95 10/15/17 00:00 98.1 59 18 105/55 95 Intake and Output 10/14/17 10/15/17 19:00 07:00 Intake Total 815.000 ml Balance 815.000 ml Free Water 100 ml IV Total 275.000 ml Tube Feeding 440 ml # Voids 3 4 Laboratory Tests 10/15/17 19:45: White Blood Count [Pending], Red Blood Count [Pending], Hemoglobin [Pending], Hematocrit [Pending], Mean Corpuscular Volume [Pending], Mean Corpuscular Hemoglobin [Pending], Mean Corpuscular Hemoglobin Concent [Pending], Red Cell Distribution Width [Pending], Platelet Count [Pending], Mean Platelet Volume [ Pending], Neutrophils (%) (Auto) [Pending], Lymphocytes (%) (Auto) [Pending], Monocytes (%) (Auto) [Pending], Eosinophils (%) (Auto) [Pending], Basophils (%) (Auto) [Pending], Reticulocyte Count [Pending], Fibrinogen [Pending], Iron Level [Pending], Unsaturated Iron Binding [Pending], Ferritin [Pending], Vitamin B12 Level [Pending], Folate [Pending], Thyroid Stimulating Hormone (TSH ) [Pending] Height (Feet): 5 Height (Inches): 7.00 Weight (Pounds): 145 Cardiovascular: normal rate Respiratory/Chest: lungs clear Abdomen: soft Laina Pereira MD Oct 15, 2017 20:47
[2017-10-15 21:05] LABS: EOSINOPHILS % (AUTO) 1.6 % (0.0-3.0); HEMATOCRIT 37.2 % (42.0-52.0); HEMOGLOBIN 11.4 G/DL (14.2-18.0); LYMPHOCYTES % (AUTO) 20.7 % (20.0-45.0); MEAN CORPUSCULAR VOLUME 101 FL (80-99); MONOCYTES % (AUTO) 10.3 % (1.0-10.0); NEUTROPHILS % (AUTO) 66.5 % (45.0-75.0); PLATELET COUNT 305 K/UL (150-450); RED CELL DISTRIBUTION WIDTH 13.3 % (11.6-14.8); WHITE BLOOD COUNT 4.6 K/UL (4.8-10.8)
[2017-10-15 21:17] LABS: FERRITIN 87 NG/ML (8-388)
[2017-10-15 21:33] LABS: % IRON SATURATION 19 % (15-50); IRON 49 ug/dL (50-175); TOTAL IRON BINDING CAPACITY 257 ug/dL (250-450)
[2017-10-15] MEDS: BuPROPion 75mg Tab GT SCH (22:26)
[2017-10-16] VITALS: BP 121/68
[2017-10-16 03:04] VITALS: BP 117/67
[2017-10-16 08:30] VITALS: BP 135/68
[2017-10-16 08:45] VITALS: BP 112/71
[2017-10-16] MEDS: Metoprolol 25mg tab GT SCH (09:00)
[2017-10-16] MEDS: Amiodarone 200mg tab GT SCH (09:02)
[2017-10-16 09:03] VITALS: BP 135/68
[2017-10-16] MEDS: Valproic Acid 250mg/5ml Liquid GT SCH (09:05)
[2017-10-16] MEDS: Eliquis 2.5mg tablet GT SCH (09:05)
[2017-10-16] MEDS: Pantoprazole Inj IVP SCH (09:06)
[2017-10-16] MEDS: Ferrous Sulfate 300 MG/5 ML UDC GT SCH (09:06)
[2017-10-16 09:16] LABS: BASOPHILS % (AUTO) 0.5 % (0.0-2.0); HEMATOCRIT 36.6 % (42.0-52.0); HEMOGLOBIN 12.1 G/DL (14.2-18.0); LYMPHOCYTES % (AUTO) 15.6 % (20.0-45.0); MEAN CORPUSCULAR VOLUME 98 FL (80-99); MONOCYTES % (AUTO) 8.4 % (1.0-10.0); NEUTROPHILS % (AUTO) 73.5 % (45.0-75.0); PLATELET COUNT 314 K/UL (150-450); RED BLOOD COUNT 3.73 M/UL (4.70-6.10); RED CELL DISTRIBUTION WIDTH 13.3 % (11.6-14.8); WHITE BLOOD COUNT 5.8 K/UL (4.8-10.8)
[2017-10-16 09:43] LABS: ANION GAP 1 mmol/L (5-15); BLOOD UREA NITROGEN 34 mg/dL (7-18); CALCIUM 8.4 MG/DL (8.5-10.1); CARBON DIOXIDE 39 MMOL/L (21-32); CHLORIDE 99 MMOL/L (98-107); CREATININE 1.2 MG/DL (0.55-1.30); POTASSIUM 4.8 MMOL/L (3.5-5.1); SODIUM 138 MMOL/L (136-145)
[2017-10-16 11:40] VITALS: BP 130/69
[2017-10-16] MEDS: Vancomycin 1gm in D5W 275ml IVPB SCH (12:40)
--- NOTE | 2017-10-16 13:42 | GI Progress Note ---
Assessment/Plan Problems: (1) Dehydration ICD Codes: E86.0 - Dehydration SNOMED: 64274521 (2) PEG (percutaneous endoscopic gastrostomy) adjustment/replacement/removal ICD Codes: Z43.1 - Encounter for attention to gastrostomy SNOMED: 117855748 (3) Dysphagia ICD Codes: R13.10 - Dysphagia SNOMED: 94202813 (4) Ileus ICD Codes: K56.7 - Ileus, unspecified SNOMED: 311011488 (5) Vomiting ICD Codes: R11.10 - Vomiting, unspecified SNOMED: 876734052 (6) Diabetes ICD Codes: E11.9 - Diabetes SNOMED: 81295811 (7) Malfunction of gastrostomy tube ICD Codes: K94.23 - Gastrostomy malfunction SNOMED: 222993547 (8) Altered mental status (9) Dementia ICD Codes: F03.90 - Dementia SNOMED: 00118873 Status: stable Status Narrative Discussed with Dr. Goetz. Assessment/Plan okay for DC per GI standpoint GTFs per RD fu ST eval for possible oral grat ppi prn transfusions fu labs The patient was seen and examined at bedside and all new and available data was reviewed in the patients chart. I agree with the above findings, impression and plan. (Patient seen earlier today. Signature stamp does not reflect patient encounter time.). - Apurva Goetz MD Subjective Gastrointestinal/Abdominal: Reports: no symptoms Objective Last 24 Hour Vital Signs Date Time Temp Pulse Resp B/P (MAP) Pulse Ox O2 Delivery O2 Flow Rate FiO2 10/16/17 11:40 98.2 65 20 130/69 95 10/16/17 09:03 98.0 67 20 135/68 92 10/16/17 09:00 64 112/71 10/16/17 08:46 64 112/71 10/16/17 08:45 64 112/71 10/16/17 08:44 112/71 10/16/17 08:30 98.0 67 20 135/68 92 10/16/17 08:30 Room Air 10/16/17 03:04 96.5 62 20 117/67 90 Room Air 10/16/17 00:00 97.2 63 18 121/68 90 10/15/17 20:00 97.5 61 18 99/53 91 10/15/17 18:23 67 117/72 10/15/17 15:49 97.9 67 20 117/72 95 Intake and Output 10/15/17 10/16/17 19:00 07:00 Intake Total 645.000 ml 540 ml Balance 645.000 ml 540 ml Intake Oral 0 ml Free Water 50 ml 100 ml IV Total 275.000 ml Tube Feeding 320 ml 440 ml # Voids 3 Laboratory Tests Test 10/15/17 19:45 10/16/17 09:00 10/16/17 10:45 White Blood Count 4.6 K/UL (4.8-10.8) L 5.8 K/UL (4.8-10.8) Red Blood Count 3.70 M/UL (4.70-6.10) L 3.73 M/UL (4.70-6.10) L Hemoglobin 11.4 G/DL (14.2-18.0) L 12.1 G/DL (14.2-18.0) L Hematocrit 37.2 % (42.0-52.0) L 36.6 % (42.0-52.0) L Mean Corpuscular Volume 101 FL (80-99) H 98 FL (80-99) Mean Corpuscular Hemoglobin 30.8 PG (27.0-31.0) 32.4 PG (27.0-31.0) H Mean Corpuscular Hemoglobin Concent 30.6 G/DL (32.0-36.0) L 33.1 G/DL (32.0-36.0) Red Cell Distribution Width 13.3 % (11.6-14.8) 13.3 % (11.6-14.8) Platelet Count 305 K/UL (150-450) 314 K/UL (150-450) Mean Platelet Volume 6.5 FL (6.5-10.1) 6.5 FL (6.5-10.1) Neutrophils (%) (Auto) 66.5 % (45.0-75.0) 73.5 % (45.0-75.0) Lymphocytes (%) (Auto) 20.7 % (20.0-45.0) 15.6 % (20.0-45.0) L Monocytes (%) (Auto) 10.3 % (1.0-10.0) H 8.4 % (1.0-10.0) Eosinophils (%) (Auto) 1.6 % (0.0-3.0) 2.0 % (0.0-3.0) Basophils (%) (Auto) 1.0 % (0.0-2.0) 0.5 % (0.0-2.0) Differential Total Cells Counted 100 Neutrophils % (Manual) 66 % (45-75) Lymphocytes % (Manual) 22 % (20-45) Monocytes % (Manual) 10 % (1-10) Eosinophils % (Manual) 1 % (0-3) Basophils % (Manual) 1 % (0-2) Band Neutrophils 0 % (0-8) Platelet Estimate Adequate Platelet Morphology Normal Red Blood Cell Morphology Normal Reticulocyte Count 0.7 % (0.0-2.0) Fibrinogen 535 mg/dL (200-400) H Iron Level 49 ug/dL (50-175) L Total Iron Binding Capacity 257 ug/dL (250-450) Percent Iron Saturation 19 % (15-50) Unsaturated Iron Binding 208 ug/dL (112-346) Ferritin 87 NG/ML (8-388) Vitamin B12 Level 1208 PG/ML (193-986) H Folate 19.6 NG/ML (8.6-58.9) Thyroid Stimulating Hormone (TSH) 17.415 uiU/mL (0.358-3.740) Sodium Level 138 MMOL/L (136-145) Potassium Level 4.8 MMOL/L (3.5-5.1) Chloride Level 99 MMOL/L (98-107) Carbon Dioxide Level 39 MMOL/L (21-32) H Anion Gap 1 mmol/L (5-15) L Blood Urea Nitrogen 34 mg/dL (7-18) H Creatinine 1.2 MG/DL (0.55-1.30) Estimat Glomerular Filtration Rate mL/min (>60) Glucose Level 97 MG/DL (74-106) Calcium Level 8.4 MG/DL (8.5-10.1) L Vancomycin Level Trough 14.7 ug/mL (5.0-12.0) H Height (Feet): 5 Height (Inches): 7.00 Weight (Pounds): 145 General Appearance: WD/WN, no apparent distress, alert Cardiovascular: normal rate Respiratory/Chest: normal breath sounds, no respiratory distress Abdominal Exam: normal bowel sounds, non tender, soft Extremities: normal range of motion, non-tender Trinh Bonilla N.P. Oct 16, 2017 13:42 SHORTY GOETZ Oct 20, 2017 11:37
--- NOTE | 2017-10-16 14:23 | Infectious Diseases Prog Note ---
"Assessment/Plan Assessment/Plan A 1. left leg cellulitis | hematoma 2. s/p trauma 3. DM 4. HPN 5. COPD 6. aortic stenosis P 1. discontinue iv vancomycin 2. Clindamycin by GT X 5 days Subjective ROS Limited/Unobtainable: Yes Musculoskeletal: Reports: pain, other - in back Allergies: Coded Allergies: AUBREY INHIBITORS (Verified Allergy, Unknown, ANGIOEDEMA, 09/17/12) Objective Vital Signs Last 24 Hour Vital Signs Date Time Temp Pulse Resp B/P (MAP) Pulse Ox O2 Delivery O2 Flow Rate FiO2 10/16/17 11:40 98.2 65 20 130/69 95 10/16/17 09:03 98.0 67 20 135/68 92 10/16/17 09:00 64 112/71 10/16/17 08:46 64 112/71 10/16/17 08:45 64 112/71 10/16/17 08:44 112/71 10/16/17 08:30 98.0 67 20 135/68 92 10/16/17 08:30 Room Air 10/16/17 03:04 96.5 62 20 117/67 90 Room Air 10/16/17 00:00 97.2 63 18 121/68 90 10/15/17 20:00 97.5 61 18 99/53 91 10/15/17 18:23 67 117/72 10/15/17 15:49 97.9 67 20 117/72 95 Height (Feet): 5 Height (Inches): 7.00 Weight (Pounds): 145 General Appearance: no acute distress HEENT: mucous membranes moist Respiratory/Chest: lungs clear Cardiovascular: normal rate, systolic murmur, pacemaker/AICD Abdomen: soft, non tender, other - GT feeding Extremities: no edema Skin: other - left leg leg lesion Neurologic/Psychiatric: alert, responsive Laboratory Tests Test 10/15/17 19:45 10/16/17 09:00 10/16/17 10:45 White Blood Count 4.6 K/UL (4.8-10.8) L 5.8 K/UL (4.8-10.8) Red Blood Count 3.70 M/UL (4.70-6.10) L 3.73 M/UL (4.70-6.10) L Hemoglobin 11.4 G/DL (14.2-18.0) L 12.1 G/DL (14.2-18.0) L Hematocrit 37.2 % (42.0-52.0) L 36.6 % (42.0-52.0) L Mean Corpuscular Volume 101 FL (80-99) H 98 FL (80-99) Mean Corpuscular Hemoglobin 30.8 PG (27.0-31.0) 32.4 PG (27.0-31.0) H Mean Corpuscular Hemoglobin Concent 30.6 G/DL (32.0-36.0) L 33.1 G/DL (32.0-36.0) Red Cell Distribution Width 13.3 % (11.6-14.8) 13.3 % (11.6-14.8) Platelet Count 305 K/UL (150-450) 314 K/UL (150-450) Mean Platelet Volume 6.5 FL (6.5-10.1) 6.5 FL (6.5-10.1) Neutrophils (%) (Auto) 66.5 % (45.0-75.0) 73.5 % (45.0-75.0) Lymphocytes (%) (Auto) 20.7 % (20.0-45.0) 15.6 % (20.0-45.0) L Monocytes (%) (Auto) 10.3 % (1.0-10.0) H 8.4 % (1.0-10.0) Eosinophils (%) (Auto) 1.6 % (0.0-3.0) 2.0 % (0.0-3.0) Basophils (%) (Auto) 1.0 % (0.0-2.0) 0.5 % (0.0-2.0) Differential Total Cells Counted 100 Neutrophils % (Manual) 66 % (45-75) Lymphocytes % (Manual) 22 % (20-45) Monocytes % (Manual) 10 % (1-10) Eosinophils % (Manual) 1 % (0-3) Basophils % (Manual) 1 % (0-2) Band Neutrophils 0 % (0-8) Other Cell Type Pathologist comment Platelet Estimate Adequate Platelet Morphology Normal Red Blood Cell Morphology Normal Reticulocyte Count 0.7 % (0.0-2.0) Fibrinogen 535 mg/dL (200-400) H Iron Level 49 ug/dL (50-175) L Total Iron Binding Capacity 257 ug/dL (250-450) Percent Iron Saturation 19 % (15-50) Unsaturated Iron Binding 208 ug/dL (112-346) Ferritin 87 NG/ML (8-388) Vitamin B12 Level 1208 PG/ML (193-986) H Folate 19.6 NG/ML (8.6-58.9) Thyroid Stimulating Hormone (TSH) 17.415 uiU/mL (0.358-3.740) Sodium Level 138 MMOL/L (136-145) Potassium Level 4.8 MMOL/L (3.5-5.1) Chloride Level 99 MMOL/L (98-107) Carbon Dioxide Level 39 MMOL/L (21-32) H Anion Gap 1 mmol/L (5-15) L Blood Urea Nitrogen 34 mg/dL (7-18) H Creatinine 1.2 MG/DL (0.55-1.30) Estimat Glomerular Filtration Rate mL/min (>60) Glucose Level 97 MG/DL (74-106) Calcium Level 8.4 MG/DL (8.5-10.1) L Vancomycin Level Trough 14.7 ug/mL (5.0-12.0) H Current Medications Medications (Trade) Dose Ordered Sig/Yousuf Route PRN Reason Start Time Stop Time Status Last Admin Dose Admin Acetaminophen (Tylenol) 650 mg Q4H PRN ORAL MILD PAIN, NTE 3G/24HR 10/12/17 20:15 11/11/17 20:14 Acetaminophen (Tylenol) 650 mg Q4H PRN ORAL Temp > 100.5 10/12/17 20:15 11/11/17 20:14 Amiodarone HCl (Cordarone) 100 mg DAILY GT 10/13/17 09:00 11/12/17 08:59 10/16/17 09:02 Amlodipine Besylate (Norvasc) 5 mg DAILY GT 10/13/17 09:00 11/12/17 08:59 10/15/17 12:17 Apixaban (Eliquis) 2.5 mg BID GT 10/13/17 09:00 11/12/17 08:59 10/16/17 09:05 Bupropion HCl (Wellbutrin) 75 mg QHS GT 10/12/17 21:00 11/11/17 20:59 10/15/17 22:26 Clonidine HCl (Catapres) 0.1 mg DAILY GT 10/13/17 09:00 11/12/17 08:59 10/15/17 12:18 Clonidine HCl (Catapres) 0.1 mg Q6H PRN GT FOR SBP >160 10/12/17 20:15 11/11/17 20:14 Ferrous Sulfate (Feosol) 330 mg DAILY GT 10/13/17 09:00 11/12/17 08:59 10/16/17 09:06 Finasteride (Proscar) 5 mg DAILY ORAL 10/13/17 09:00 11/12/17 08:59 10/16/17 09:06 Furosemide (Lasix) 20 mg DAILY GT 10/13/17 09:00 11/12/17 08:59 10/16/17 09:06 Levothyroxine Sodium (Synthroid) 100 mcg ACBREAKFAST GT 10/13/17 09:00 11/12/17 08:59 10/16/17 06:27 Magnesium Hydroxide (Mom) 30 ml DAILYPRN PRN GT Constipation 10/12/17 20:15 11/11/17 20:14 10/15/17 18:24 Metoprolol Tartrate (Lopressor) 12.5 mg BID GT 10/13/17 09:00 11/12/17 08:59 10/15/17 18:23 Pantoprazole (Protonix) 40 mg DAILY IVP 10/12/17 21:15 11/11/17 21:14 10/16/17 09:06 Valproic Acid (Depakene) 500 mg EVERY 12 HOURS GT 10/12/17 22:00 11/11/17 21:59 10/16/17 09:05 Vancomycin HCl (Vanco rx to dose) 1 ea DAILY PRN MISC Per rx protocol 10/13/17 11:30 11/12/17 11:29 Vancomycin HCl 1 gm/Dextrose 275 ml @ 183.708 mls/hr Q24H IVPB 10/14/17 12:00 10/19/17 11:59 10/16/17 12:40 STEFANY ZULUAGA Oct 16, 2017 14:23"
[2017-10-16] MEDS ORDERED: CLEOCIN HCL300 MG GT (14:31)
[2017-10-16] MEDS ORDERED: NS 500ML ONE (15:39)
[2017-10-16] MEDS ORDERED: NS 110ml ONE (15:39)
[2017-10-16] MEDS ORDERED: NS 275ml ONE (15:39)
[2017-10-16] MEDS ORDERED: Tubing IV Secondary IV ONE (15:39)
[2017-10-16] MEDS ORDERED: Clindamycin 150mg cap GT SCH (18:00)
--- NOTE | 2017-10-16 20:24 | General Progress Note ---
Assessment/Plan Assessment/Plan 1. Recurrent deep venous thrombosis. The patient has been on Eliquis. Reviewed the patient's skin exam findings with a hematoma noted. It is very mild. Therefore, at this time, okay to continue Eliquis unless Vascular Surgery disagrees. Continue to monitor --> appreciate Dr. Joan aguirre, have discussed with Dr. Pereira --> okay to apply daniela bandage as per vascular team 2. Anemia secondary to chronic disease. 3. ENT cancer, currently in remission. 4. Hypertension. 5. Pacemaker placement. 6. Asthma. 7. Chronic obstructive pulmonary disease. Subjective Constitutional: Reports: no symptoms Cardiovascular: Reports: no symptoms Respiratory: Reports: no symptoms Gastrointestinal/Abdominal: Reports: no symptoms Genitourinary: Reports: no symptoms Neurologic/Psychiatric: Reports: no symptoms Endocrine: Reports: no symptoms Allergies: Coded Allergies: DANIELA INHIBITORS (Verified Allergy, Unknown, ANGIOEDEMA, 09/17/12) Subjective NAD Objective Last 24 Hour Vital Signs Date Time Temp Pulse Resp B/P (MAP) Pulse Ox O2 Delivery O2 Flow Rate FiO2 10/16/17 11:40 98.2 65 20 130/69 95 10/16/17 09:03 98.0 67 20 135/68 92 10/16/17 09:00 64 112/71 10/16/17 08:46 64 112/71 10/16/17 08:45 64 112/71 10/16/17 08:44 112/71 10/16/17 08:30 98.0 67 20 135/68 92 10/16/17 08:30 Room Air 10/16/17 03:04 96.5 62 20 117/67 90 Room Air 10/16/17 00:00 97.2 63 18 121/68 90 Intake and Output 10/15/17 10/16/17 19:00 07:00 Intake Total 645.000 ml 540 ml Balance 645.000 ml 540 ml Intake Oral 0 ml Free Water 50 ml 100 ml IV Total 275.000 ml Tube Feeding 320 ml 440 ml # Voids 3 Laboratory Tests 10/16/17 09:00: White Blood Count 5.8, Red Blood Count 3.73L, Hemoglobin 12.1L, Hematocrit 36.6L , Mean Corpuscular Volume 98, Mean Corpuscular Hemoglobin 32.4H, Mean Corpuscular Hemoglobin Concent 33.1, Red Cell Distribution Width 13.3, Platelet Count 314, Mean Platelet Volume 6.5, Neutrophils (%) (Auto) 73.5, Lymphocytes (% ) (Auto) 15.6L, Monocytes (%) (Auto) 8.4, Eosinophils (%) (Auto) 2.0, Basophils (%) (Auto) 0.5, Sodium Level 138, Potassium Level 4.8, Chloride Level 99, Carbon Dioxide Level 39H, Anion Gap 1L, Blood Urea Nitrogen 34H, Creatinine 1.2 , Estimat Glomerular Filtration Rate , Glucose Level 97, Calcium Level 8.4L 10/16/17 10:45: Vancomycin Level Trough 14.7H Height (Feet): 5 Height (Inches): 7.00 Weight (Pounds): 145 EENT: PERRL/EOMI Neck: supple Cardiovascular: normal peripheral pulses Respiratory/Chest: normal breath sounds Abdomen: no organomegaly Extremities: non-tender Edema: mild edema Neurologic: oriented x 3 Skin: warm/dry Jax Alcaraz Oct 16, 2017 20:24
--- NOTE | 2017-10-19 10:08 | Discharge Summary ---
Discharge Summary Hospital Course Date of Admission Oct 12, 2017 at 15:41 Date of Discharge Oct 16, 2017 at 15:40 Admitting Diagnosis left leg cellulitis HPI Darek Garcia is a 77 year old male who was admitted on Oct 12, 2017 at 15: 41 for Left Leg Cellulitis Hospital Course dc summary# [id number] Discharge Medications Continued Medications: Acetaminophen* (Acetaminophen 325MG Tablet*) 325 Mg Tablet 650 MG GT Q4H PRN for MILD PAIN, NTE 3G/24HR Acetaminophen* (Acetaminophen 325MG Tablet*) 325 Mg Tablet 325 MG GT DAILY for GIVE 30 MIN PRIOR TO TX Amiodarone Hcl* (Pacerone*) 100 Mg Tablet 100 MG GT DAILY for HOLD IF SBP<110 OR DBP<60 Amlodipine Besylate* (Amlodipine Besylate*) 5 Mg Tablet 5 MG GT DAILY for FOR HTN, HOLD IF SBP<110 Apixaban (Eliquis) 2.5 Mg Tablet 2.5 MG GT BID for FOR A-FIB Bupropion Hcl* (Bupropion Hcl*) 75 Mg Tablet 75 MG GT QHS for depression, TAB Clindamycin Hcl (Cleocin Hcl) 300 Mg Capsule 300 MG GT Q6HR for 5 Days, CAP Clonidine Hcl* (Catapres*) 0.1 Mg Tablet 0.1 MG GT EVERY 6 HOURS PRN for FOR SBP >160 Clonidine Hcl* (Catapres*) 0.1 Mg Tablet 0.1 MG GT DAILY for HOLD FOR SBP <110 Cranberry Extract (Cranberry) 405 Mg Capsule 405 MG GT DAILY for UTI PPX, TAB Esomeprazole Magnesium (Nexium) 40 Mg Capsule.dr 40 MG GT DAILY for BEFORE BREAKFAST Ferrous Sulfate (Ferrous Sulfate) 220 Mg/5 Ml Solution 330 MG GT DAILY for ANEMIA Finasteride* (Proscar*) 5 Mg Tablet 5 MG GT DAILY for FOR BPH Furosemide* (Lasix*) 20 Mg Tablet 20 MG GT DAILY for FOR CHF Levothyroxine Sodium* (Levothyroxine Sodium*) 100 Mcg Tablet 100 MCG GT DAILY for HYPOTHYROIDISM, TAB Take in the morning on an empty stomach, at least 30 minutes before food. Magnesium Hydroxide* (Milk Of Magnesia*) 400 Mg/5 Ml Oral.susp 30 ML GT DAILY PRN for Constipation Metformin Hcl* (Metformin Hcl*) 500 Mg Tablet 500 MG GT TWICE A DAY for WITH BREAKFAST AND DINNER Metoprolol Tartrate* (Metoprolol Tartrate*) 25 Mg Tablet 12.5 MG GT BID for HOLD FOR SBP <110 Multivitamin Liquid* (Multi-Delyn*) 237 Ml Liquid 5 ML GT DAILY for Constipation Potassium Chloride (Potassium Chloride) 20 Meq/15 Ml Liquid 10 MEQ GT DAILY Valproate Sodium (Valproic Acid) 250 Mg/5 Ml Solution 500 MG GT BID for SEIZURE Discontinued Medications: Heparin Sod (Porcine) (Heparin Sodium*) 5 000/1 Ml Vial 5000 UNITS SUBQ EVERY 12 HOURS for DVT, VIAL Discharge Condition Upon Discharge: stable Discharge Disposition Patient was discharged to SNF/Subacute Facility(03) Discharge Diagnoses: Discharge Instructions Discharge Instructions Special Instructions I have been assigned to complete a D/C Summary on this account. I was not involved in the patient management Lyndsay Bishop NP (Vanchtein) Oct 19, 2017 10:08
--- NOTE | 2017-10-21 09:42 | Discharge Summary 2 SIG ---
DATE OF ADMISSION: 10/12/2017 DATE OF DISCHARGE: 10/16/2017 REASON FOR ADMISSION: 77-year-old male with past medical history significant for hypertension, pacemaker, chronic obstructive pulmonary disease, asthma, diabetes, CVA, G-tube, and seizure disorder, presented after he accidentally hit a metal pole two to three weeks ago and currently developed hematoma with associated cellulitis. Upon presentation, vital signs were stable, afebrile, no leukocytosis. CT of the left lower extremity revealed evidence of cellulitis. The patient admitted for further management with a diagnosis of traumatic hematoma of left lower extremity with associated cellulitis. HOSPITAL COURSE: The patient was admitted. ID consult requested. The patient was started on empiric antibiotics. Blood culture negative. IV antibiotics changed to oral for additional five days to complete the course at the half-way facility. Vascular surgeon consult was requested. According to vascular surgeon, the patient had a small left pretibial anterior leg small hematoma, traumatic. The patient also had a history of DVT and was on anticoagulation with Eliquis. No leg edema was noted. Leg felt well perfused, warm, with intact pulses. Arterial venous duplex showed iliac arterial occlusive disease, left lower extremity. CT angio of abdomen to leg runoff revealed no evidence of vascular insufficiency bilaterally. Vascular surgeon recommended leg elevation and Zan wrapping. Echocardiogram revealed preserved ejection fraction of 60% and right ventricular systolic pressure of 36 consistent with mild pulmonary hypertension. Venous duplex revealed chronic thrombus in the right lower extremity distal superficial femoral vein with collateral vein noted anterior to the distal superficial femoral artery. Patent deep venous system, left lower extremity. CTA of the abdominal aorta also demonstrated soft tissue edema of the bilateral lower extremities, more severe on the left with 4.5 x 2 cm hematoma in the anterolateral aspect of the left proximal leg reported on recent CT of the left lower extremity. No evidence of peripheral vascular insufficiency. Calcification within the trifurcation vessels precluded confident exclusion of significant disease within this vessel; however, appeared to be patent to the ankle and no evidence of suprageniculate peripheral vascular insufficiency. SNF medications were resumed. [facility] followed. After discussion between sorting machine operator and vascular surgeon, surgeon cleared to continue Eliquis since hematoma was mild. Surgeon also stated that the patient can be discharged to follow up with him as an outpatient. Per Hematology, the patient had anemia of chronic disease. ENT cancer currently in remission. The patient was on the IV fluids. Renal parameters and electrolytes were closely monitored. Nephrotoxics were avoided. Blood pressure and blood sugar were managed with current medication regimen. Supplemental oxygen and pulmonary toilet was on board as needed. Strict aspiration precautions were maintained. The patient noted to have malfunctioning G-tube. GI consult was requested f or malfunctioned G-tube, the patient subsequently undergone G-tube change at the bedside. KUB confirmed the placement. Strict aspiration and reflux precautions were maintained. G-tube feeding was resumed as per heat curer recommendation in terms of type of feeding and goal rate. PPI provided. Hemoglobin and hematocrit were closely monitored. No need for transfusion. Oral gratification diet as recommended by speech therapist. GI prophylaxis provided. The patient was stable for discharge back to the half-way facility. FINAL DIAGNOSES: 1. Cellulitis, left lower extremity. 2. Hematoma, left lower extremity, traumatic with associated cellulitis. 3. Recurrent deep vein thrombosis. 4. Anemia secondary to chronic disease. 5. Gastrostomy tube malfunctioning. 6. Pacemaker. 7. Hypertension. 8. Chronic obstructive pulmonary disease/asthma. 9. ENT cancer, in remission. 10. History of cerebrovascular accident. 11. Dysphagia, percutaneous endoscopic gastrostomy. 12. Dementia. 14. Diabetes. 15. History of tracheostomy. DISCHARGE INSTRUCTIONS: The patient was discharged to half-way facility. FOLLOWUP: Follow up with medical doctor at the facility. DISCHARGE MEDICATIONS: See medication reconciliation list. Laina Pereira M.D. I have been assigned to dictate discharge summary on this account and I was not involved in the patient's management. Lyndsay Duenastami NLindaPLinda DR: JORDANA JOB#: [id number] CC: [id number]
== END 2017-10-16 15:40 | DRG 603 ==
LOC: EDBD 13:46 → EDBEDREQ 14:17 → EMR 14:45 → EDBEDREQ 15:26 → 4E 15:41 → EDBEDREQ 17:19
PROC: 0D20XUZ Change Feeding Device in Upper Intestinal Tract, External Approach (ICD-10-PCS; principal; 2017-10-15)
DX: L03.116 Cellulitis of left lower limb (principal); I27.20 Pulmonary hypertension, unspecified; I82.509 Chronic embolism and thrombosis of unspecified deep veins of unspecified lower extremity; F03.90 Unspecified dementia, unspecified severity, without behavioral disturbance, psychotic disturbance, mood disturbance, and anxiety; K94.23 Gastrostomy malfunction; J44.9 Chronic obstructive pulmonary disease, unspecified; E11.9 Type 2 diabetes mellitus without complications; D63.8 Anemia in other chronic diseases classified elsewhere; Z68.22 Body mass index [BMI] 22.0-22.9, adult; Z95.0 Presence of cardiac pacemaker; E03.9 Hypothyroidism, unspecified; S80.12XS Contusion of left lower leg, sequela; W01.198S Fall on same level from slipping, tripping and stumbling with subsequent striking against other object, sequela; F20.9 Schizophrenia, unspecified; E86.0 Dehydration; R13.10 Dysphagia, unspecified; I35.0 Nonrheumatic aortic (valve) stenosis; Z79.01 Long term (current) use of anticoagulants; Z86.73 Personal history of transient ischemic attack (TIA), and cerebral infarction without residual deficits; Z85.89 Personal history of malignant neoplasm of other organs and systems
CPT/HCPCS: 36415; 74018; 75635; 80048; 80053; 80202; 82270; 82607; 82728; 82746; 82962; 83540; 83550; 83605; 84443; 85007; 85025; 85044; 85060; 85384; 87040; 92610; 93306; 93925; 93970; 99285